=== PATIENT | male | born 1950 | race Caucasian/White ===

== ENCOUNTER → 2017-08-20 | Outpatient (CLI) | payer OTHER ==
[2017-08-20 13:19] LABS: HCT 52.7 % (39.0-53.0); HGB 17.4 gm/dL (13.0-17.5); MCHC 33.1 g/dL (31.0-37.0); MCV 99.8 fL (80.0-100.0); Macrocytosis Slight; Mean Platelet Volume 7.9; Platelet Count 105 k/uL (150-450); RBC 5.28 m/uL (4.30-5.90); RDW 14.7 % (11.5-15.5); WBC 5.5 k/uL (3.8-10.6)
[2017-08-20 13:38] LABS: Potassium 4.8 mmol/L (3.5-5.1)
== END | disposition home or self-care (01) ==
LOC: LABWHC1 12:33
PROVIDERS: ATTEND Internal Medicine Clinical Cardiac Electrophysiology
DX: I48.2 Chronic atrial fibrillation (principal); I42.9 Cardiomyopathy, unspecified; I25.10 Atherosclerotic heart disease of native coronary artery without angina pectoris
CPT/HCPCS: 36415; 80048; 85027

== ENCOUNTER 2017-09-05 14:03 | Day surgery (SDC) | payer OTHER ==
[2017-09-02 15:39] VITALS: BMI 33.6
[~2017-09-05 14:03] MED LIST: LACTATED RINGERS 1,000 ML IV SCH; LIDOCAINE 1% 20 ML VIAL (10MG/ML) FOR IV START INTRADERMA PRN; MIDAZOLAM 2 MG/2 ML VIAL IV PRN; SODIUM CHLORIDE 0.9% 1,000 ML IV SCH
[2017-09-05] MEDS ORDERED: ceFAZolin IN SWFI 2 GM/20 ML SYRINGE IVP ONE (15:00)
[2017-09-05] MEDS ORDERED: ceFAZolin 1,000 MG in SODIUM CHLORIDE 0.9% IRRIGATIO 250 ML IRRIGATION ONE (15:00)
[2017-09-05 15:03] LABS: INR 3.2 (<1.2); Prothrombin Time 28.7 sec (9.0-12.0)
[2017-09-05] MEDS ORDERED: MIDAZOLAM 2 MG/2 ML VIAL ONE (15:32)
[2017-09-05] MEDS ORDERED: fentaNYL (PF) 50 MCG/ML 2 ML AMP ONE (15:32)
[2017-09-05] MEDS ORDERED: KETAMINE 10 MG/ML 20 ML VIAL ONE (15:32)
[2017-09-05] MEDS ORDERED: LIDOCAINE 1% INJ 10MG/ML (20 ML MDV) ONE (15:59)
[2017-09-05] MEDS ORDERED: LIDOCAINE 1% INJ 10MG/ML (10 ML MDV) SQ ONE (16:11)
[2017-09-05] MEDS ORDERED: ACETAMINOPHEN TAB 325 MG TAB PO PRN (17:00)
--- NOTE | 2017-09-05 17:35 | PCN ---
PROCEDURE NOTE Peter Apodaca is a patient of Dr. Curiel who has CAD, permanent atrial fibrillation, congestive heart failure, chronic systolic LV dysfunction on medical treatment being followed by Dr. Curiel, who apparently has had who has had 2 ventricular tachyarrhythmia episodes with appropriate shocks in the past. His Bi-V ICD was placed at an outside institution. His Bi-V ICD is at an end of service and he was brought in for generator change. PROCEDURE: The patient is brought to the EP lab in a fasting state. Written informed consent was obtained prior to the procedure. The left shoulder area was prepped and draped as per protocol. 1% lidocaine was used for local anesthesia. The left pectoral area was prepped and draped as per protocol 1% lidocaine was used for local anesthesia. An incision was made over the generator and carried down to the level of the generator. The generator was in a subcutaneous location. A new subfascial pocket was made. Hemostasis was assured. The old generator was removed. This was a Medtronic CRTD model number [id number] Concerta DF1, serial number [id number]. The new generator implanted was a Medtronic model number [id number] serial number [id number]. The leads were interrogated. The LV lead was model a Medtronic model #4194, serial number [id number]. The pacing impedance 599 ohms, pacing threshold 1.75 V at 1 millisecond. The chronic RV lead was 6947-lead, 65 cm in length and serial number [id number]. The R-waves were 6.6 mV, pacing impedance 456 ohms. High-voltage impedance HVB 48 ohms. HVX impedance 56 ohms and pacing threshold 1.24 V at 0.4 milliseconds. The generator leads were placed in a subfascial pocket. The wound was closed in 3 layers and dressed per protocol. RESULT: Successful biventricular ICD generator change for device at [facility] in this gentleman with congestive heart failure, chronic systolic LV dysfunction, permanent atrial fibrillation, cardiomyopathy, underlying coronary artery disease on medical treatment. The device is at end of service. The new generator was placed. MMODL / IJN: [id number] /
[2017-09-05] MEDS ORDERED: ACETAMINOPHEN IV (For NPO) 1,000 MG in EMPTY BAG 1 BAG IVPB ONE (18:00)
[2017-09-05] MEDS ORDERED: LISINOPRIL 2.5 MG TAB PO SCH (18:00)
[2017-09-05] MEDS: SERTRALINE 100 MG TAB PO SCH (20:41)
[2017-09-05] MEDS: ALLOPURINOL 100 MG TAB PO SCH (20:41)
[2017-09-05] MEDS: FUROSEMIDE 40 MG TAB PO SCH (20:42)
[2017-09-05] MEDS: HYDROcodone/APAP 5-325MG 1 EACH TAB PO PRN (20:43)
[2017-09-05] MEDS ORDERED: risperiDONE 1 MG TAB PO SCH (21:00)
[2017-09-05] MEDS ORDERED: ATORVASTATIN 40 MG TAB PO SCH (21:00)
[2017-09-05] MEDS: GABAPENTIN 300 MG CAP PO SCH (21:44)
[2017-09-05] MEDS: ceFAZolin IN SWFI 2 GM/20 ML SYRINGE IVP SCH (21:44)
[2017-09-06] MEDS: SALSALATE 750 MG PO SCH ×3 (02:18→16:13)
[2017-09-06] MEDS: ceFAZolin IN SWFI 2 GM/20 ML SYRINGE IVP SCH ×3 (03:39→15:36)
[2017-09-06 08:08] VITALS: RESP 18
[2017-09-06] MEDS ORDERED: ASPIRIN 81 MG PO SCH (09:00)
[2017-09-06] MEDS ORDERED: SPIRONOLACTONE 25 MG TAB PO SCH (09:00)
[2017-09-06] MEDS ORDERED: METOPROLOL SUCCINATE (ER) 50 MG TAB.ER.24H PO SCH (09:00)
[2017-09-06] MEDS: GABAPENTIN 300 MG CAP PO SCH (09:42)
[2017-09-06] MEDS: ALLOPURINOL 100 MG TAB PO SCH (09:42)
[2017-09-06] MEDS: SERTRALINE 100 MG TAB PO SCH (09:43)
[2017-09-06] MEDS: FUROSEMIDE 40 MG TAB PO SCH (09:43)
--- NOTE | 2017-09-06 10:15 | DS ---
DISCHARGE SUMMARY Mr. Peter Apodaca is a 67-year-old male patient whose biventricular ICD generator was at end of life and he underwent ICD generator change yesterday successfully. He is receiving IV antibiotics. The site has healed well. There is a little bit of soakage in the dressing, but there is no hematoma. His INR is 3.2. He is resting comfortably in bed. Denies any chest discomfort or any breathing trouble. His vitals are stable. He is 98.1 degrees Fahrenheit temperature, blood pressure 114/73 mmHg, pulse rate in the 70s. He has underlying atrial fibrillation. IMPRESSION: 1. Known chronic left ventricular systolic dysfunction with at least class 2 congestive heart failure. 2. Underlying permanent atrial fibrillation. 3. Severe cardiomyopathy. 4. History of ventricular tachyarrhythmias on at least 2 occasions requiring appropriate ICD therapies. 5. Status post biventricular ICD generator change yesterday. PLAN: Discharge home after completion of IV antibiotics. Follow up in the device clinic in 5 days and follow up with Dr. Curiel as before. No changes in his medications. MMODL / IJN: [id number] /
[2017-09-06 12:21] VITALS: BP 119/80; PULSE 70; TEMP 98.1
[2017-09-06] MEDS: HYDROcodone/APAP 5-325MG 1 EACH TAB PO PRN (15:36)
[2017-09-06] MEDS ORDERED: WARFARIN 2.5 MG TAB PO SCH (18:00)
[2017-09-07] MEDS ORDERED: WARFARIN 5 MG TAB PO SCH (18:00)
== END 2017-09-06 16:13 | disposition home or self-care (01) ==
LOC: CATHEP 14:03 → 3OBS 17:00 → CATHEP 09-06 16:13
PROVIDERS: ATTEND Internal Medicine Clinical Cardiac Electrophysiology
DX: I42.9 Cardiomyopathy, unspecified (principal); Z45.02 Encounter for adjustment and management of automatic implantable cardiac defibrillator; I25.10 Atherosclerotic heart disease of native coronary artery without angina pectoris; I11.0 Hypertensive heart disease with heart failure; I50.22 Chronic systolic (congestive) heart failure; I48.2 Chronic atrial fibrillation; F17.210 Nicotine dependence, cigarettes, uncomplicated; Z79.01 Long term (current) use of anticoagulants; Z79.82 Long term (current) use of aspirin; Z79.899 Other long term (current) drug therapy; Z88.2 Allergy status to sulfonamides; Z88.8 Allergy status to other drugs, medicaments and biological substances
CPT/HCPCS: 33264; 85610; C1882; J2250; J0690 ×3; J3010; J2001

== ENCOUNTER 2018-11-17 10:17 | Day surgery (SDC) | payer OTHER ==
[2018-11-14 11:47] VITALS: BMI 30.3
[~2018-11-17 10:17] MED LIST changes: -MIDAZOLAM 2 MG/2 ML VIAL IV PRN; -SODIUM CHLORIDE 0.9% 1,000 ML IV SCH
[2018-11-17 10:55] VITALS: TEMP 97.4
--- NOTE | 2018-11-17 11:28 | P.PCN ---
Date of Procedure: 11/17/18 Description of Procedure: BRIEF HISTORY: 68-year-old male who presents for evaluation of intermittent dysphagia. He reports two-year history of intermittent dysphagia to both solids and liquids. Denies any progression of symptoms. Reports similar symptoms 20 years ago but unsure what treatment was at that time. He is on omeprazole therapy once daily. PROCEDURE PERFORMED: Esophagogastroduodenoscopy with biopsy. PREOPERATIVE DIAGNOSIS: Esophageal dysphagia. ESTIMATED BLOOD LOSS: Minimal. IV sedation per anesthesia. PROCEDURE: After informed consent was obtained, the patient was brought into the endoscopy unit. IV sedation was administered by Anesthesia under continuous monitoring. Initially the Olympus GIF-190 video endoscope was inserted into the mouth. Esophagus intubated without any difficulty. It was gradually advanced into the stomach and duodenum and carefully examined. The bulb and the second part of the duodenum appeared normal, with biopsies taken. The scope at this time was withdrawn to the stomach, adequately insufflated with air, and upon careful examination, mucosa of the antrum, body, cardia and the fundus appeared grossly normal, with findings of loose in the antrum and body with some nodularity suggestive of moderate gastritis with biopsies of the antrum and body to. The scope was then withdrawn into the esophagus. The GE junction was located at 45 cm from the incisors with findings suggestive of Mensah's esophagus. The esophagus appeared normal with mild inflammation in the lower esophagus suggestive of LA grade a esophagitis. Mid esophageal biopsies taken to rule out EOE. The patient tolerated the procedure well. IMPRESSION: 1. Moderate gastritis antrum and body, biopsied. 2. 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 3. Mid esophageal biopsies taken to rule out EOE. 4. Duodenal biopsies. RECOMMENDATIONS: The findings of this examination were discussed with the patient and his . Await pathology from biopsies. Would recommend trial of twice daily omeprazole therapy. If patient continues to have symptoms would recommend esophageal manometry for further workup.
[2018-11-17 11:47] VITALS: BP 110/70; PULSE 70; RESP 18
== END 2018-11-17 12:30 | disposition home or self-care (01) ==
LOC: ORWHC2ENDO 10:17
PROVIDERS: ATTEND Internal Medicine
DX: K29.50 Unspecified chronic gastritis without bleeding (principal); I25.10 Atherosclerotic heart disease of native coronary artery without angina pectoris; I11.0 Hypertensive heart disease with heart failure; I50.9 Heart failure, unspecified; E78.5 Hyperlipidemia, unspecified; F17.200 Nicotine dependence, unspecified, uncomplicated; G47.33 Obstructive sleep apnea (adult) (pediatric); Z95.810 Presence of automatic (implantable) cardiac defibrillator; I48.91 Unspecified atrial fibrillation; F32.9 Major depressive disorder, single episode, unspecified; I69.351 Hemiplegia and hemiparesis following cerebral infarction affecting right dominant side; Z79.82 Long term (current) use of aspirin; Z79.899 Other long term (current) drug therapy
CPT/HCPCS: 43239; 88305; 88341; 88342

== ENCOUNTER 2019-04-01 11:04 | Inpatient (IN) | payer MEDICARE, OTHER ==
[2019-04-01 16:13] LABS: INR 1.7 (<1.2); Prothrombin Time 17.2 sec (9.0-12.0)
[2019-04-01] MEDS: IPRATROPIUM-ALBUTEROL 3 ML NEB INHALATION SCH ×2 (17:21→19:21)
[2019-04-01] MEDS: PIPERACILLIN-TAZOBACTAM 3.375 GM in SODIUM CHLORIDE 0.9% 100 ML IVPB SCH ×2 (17:22→23:48)
[2019-04-01] MEDS: GABAPENTIN 100 MG CAP PO SCH ×2 (17:22→21:55)
[2019-04-01] MEDS: WARFARIN 2.5 MG TAB PO SCH (17:23)
[2019-04-01] MEDS: BUDESONIDE 0.5 MG/2 ML NEBU INHALATION SCH (19:21)
[2019-04-02 06:31] LABS: Basophils % (A) 1 %; Eosinophils # (A) 0.1 k/uL (0-0.7); Eosinophils % (A) 2 %; HCT 33.7 % (39.0-53.0); HGB 11.2 gm/dL (13.0-17.5); Hypochromasia Slight; Lymphocytes # (A) 0.7 k/uL (1.0-4.8); Lymphocytes % (A) 14 %; MCH 33.1 pg (25.0-35.0); MCHC 33.3 g/dL (31.0-37.0); MCV 99.5 fL (80.0-100.0); Mean Platelet Volume 9.4; Monocytes # (A) 0.3 k/uL (0-1.0); Monocytes % (A) 6 %; Neutrophils # (A) 3.9 k/uL (1.3-7.7); Neutrophils % (A) 76 %; Platelet Count 124 k/uL (150-450); RBC 3.39 m/uL (4.30-5.90); RDW 14.6 % (11.5-15.5); WBC 5.1 k/uL (3.8-10.6)
[2019-04-02 06:41] LABS: Albumin 2.6 g/dL (3.5-5.0); Calcium 8.6 mg/dL (8.4-10.2); Total Bilirubin 0.7 mg/dL (0.2-1.3); Total Protein 5.3 g/dL (6.3-8.2)
[2019-04-02] MEDS: IPRATROPIUM-ALBUTEROL 3 ML NEB INHALATION SCH ×4 (07:32→19:14)
[2019-04-02] MEDS: BUDESONIDE 0.5 MG/2 ML NEBU INHALATION SCH ×2 (07:32→19:14)
[2019-04-02] MEDS: ALLOPURINOL 100 MG TAB PO SCH (08:04)
[2019-04-02] MEDS: ASPIRIN 81 MG PO SCH (08:04)
[2019-04-02] MEDS: PIPERACILLIN-TAZOBACTAM 3.375 GM in SODIUM CHLORIDE 0.9% 100 ML IVPB SCH ×3 (08:04→23:29)
[2019-04-02] MEDS: SERTRALINE 100 MG TAB PO SCH (08:05)
[2019-04-02] MEDS: METOPROLOL TARTRATE 50 MG TAB PO SCH (08:05)
[2019-04-02] MEDS: GABAPENTIN 100 MG CAP PO SCH ×3 (08:05→21:12)
[2019-04-02] MEDS: CLOPIDOGREL 75 MG TAB PO SCH (08:05)
[2019-04-02] MEDS: POTASSIUM CHLORIDE ER 20 MEQ TAB.ER PO SCH (08:05)
--- NOTE | 2019-04-02 10:21 | P.NPCON ---
History of Present Illness - Reason for Consult acute renal failure - History of Present Illness Reason for consultation: Acute kidney injury History of present illness: Patient is a 68-year-old male seen in renal consultation for acute kidney injury. Patient's creatinine in July 2017 was 1.39 and this admission was 1.15. Patient presented to the hospital due to altered mental status. It appears that the patient was confused and was sent to the hospital. Patient has history of dysphagia and has been worked up by GI in the past. Patient has a PEG tube. There concerned that he aspirated. Patient is awake and alert. He denies chest pain or shortness of breath. Hemodynamically he stable. Patient is afebrile. He has been voiding. Denies any hematuria or dysuria. I don't see any nonsteroidals and his home medications. No history of diabetes. Currently not on any IV fluids or diuretics. Vital signs are stable. General: The patient appeared well nourished and normally developed. HEENT: Head exam is unremarkable. Neck is without jugular venous distension. LUNGS: Lungs are clear to auscultation and percussion. Breath sounds decreased. HEART: Rate and Rhythm are regular. First and second heart sounds normal. No murmurs, rubs or gallops. ABDOMEN: Abdominal exam reveals normal bowel sounds. Non-tender and non- distended. No evidence of peritonitis. EXTREMITITES: No clubbing, cyanosis, or edema. Past Medical History Past Medical History: Atrial Fibrillation, Heart Failure, COPD, CVA/TIA, Eye Disorder, Hearing Disorder / Deafness, Hyperlipidemia, Hypertension, Skin Disorder, Sleep Apnea/CPAP/BIPAP Additional Past Medical History / Comment(s): spouse states "he feels like food is getting stuck in his chest",CVA approx 2009-speech affected and slight rt sided weakness.cataracts.bruises easily,no cpap,neuropathy moe feet History of Any Multi-Drug Resistant Organisms: None Reported Past Surgical History: AICD, Heart Catheterization With Stent Additional Past Surgical History / Comment(s): AICD/Pacemaker, PEG tube placed Past Anesthesia/Blood Transfusion Reactions: No Reported Reaction Date of Last Stent Placement:: unk Type of Cardiac Device: AICD Device Placement Date:: 2009 Past Psychological History: Anxiety, Depression, PTSD Additional Psychological History / Comment(s): PTSD 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 war Smoking Status: Current every day smoker Past Alcohol Use History: Daily, Heavy Additional Past Alcohol Use History / Comment(s): smokes 3/4ppd since age 11,drubjs 6 pack beer daily Past Drug Use History: None Reported - Past Family History Brother(s) Family Medical History: Deep Vein Thrombosis (DVT) Medications and Allergies Home Medications Medication Instructions Recorded Confirmed Type Allopurinol [Zyloprim] 100 mg PEG/G-TUBE BID 09/02/17 04/01/19 History Aspirin [Adult Low Dose Aspirin EC] 81 mg PEG/G-TUBE DAILY 09/02/17 04/01/19 History Gabapentin [Neurontin] 300 mg PEG/G-TUBE TID 09/02/17 04/01/19 History Omeprazole [PriLOSEC] 20 mg PEG/G-TUBE DAILY 09/02/17 04/01/19 History Sertraline HCl [Zoloft] 100 mg PEG/G-TUBE BID 09/02/17 04/01/19 History Acetaminophen-Codeine 300-30mg 1 tab PEG/G-TUBE TID PRN 04/01/19 04/01/19 History [Tylenol w/codeine #3] Clopidogrel Bisulfate [Plavix] 75 mg PEG/G-TUBE DAILY 04/01/19 04/01/19 History Metoprolol Succinate [Toprol XL] 100 mg PEG/G-TUBE DAILY 04/01/19 04/01/19 History Potassium Chloride [Klor-Con 20] 20 meq PEG/G-TUBE DAILY 04/01/19 04/01/19 History Rosuvastatin [Crestor] 20 mg PEG/G-TUBE HS 04/01/19 04/01/19 History Warfarin Sodium 6 mg PEG/G-TUBE HS 04/01/19 04/01/19 History Allergies Allergy/AdvReac Type Severity Reaction Status Date / Time fluvastatin AdvReac Nausea & Verified 04/01/19 15:30 Vomiting metolazone [From Zaroxolyn] AdvReac Nausea & Verified 04/01/19 15:30 Vomiting simvastatin AdvReac Nausea & Verified 04/01/19 15:30 Vomiting sulfamethoxazole AdvReac Nausea & Verified 04/01/19 15:30 [From Bactrim] Vomiting trimethoprim [From Bactrim] AdvReac Nausea & Verified 04/01/19 15:30 Vomiting Physical Exam Vitals: Vital Signs Temp Pulse Pulse Resp BP Pulse Ox 04/02/19 08:11 98.2 F 79 18 137/78 93 L 04/02/19 07:46 76 04/02/19 07:32 72 04/02/19 04:37 97.9 F 73 16 133/87 98 04/02/19 01:13 98.2 F 75 16 126/87 94 L 04/01/19 20:15 97.9 F 77 18 131/98 96 04/01/19 19:23 85 04/01/19 17:32 84 04/01/19 17:22 84 04/01/19 14:48 98.3 F 84 16 128/81 98 04/01/19 14:45 98.3 F 84 16 128/81 98 Intake and Output 04/01/19 04/02/19 04/02/19 22:59 06:59 14:59 Intake Total 118 Balance 118 Intake: Oral 118 Other: Voiding Method Urinal Urinal Toilet Urinal # Voids 1 1 1 Weight 99.6 kg Results - Lab Results Most recent lab results Calcium 8.6 mg/dL (8.4-10.2) 04/02/19 06:02 04/02/19 06:02 04/02/19 06:02 Assessment and Plan Plan: Assessment: 1. Mild acute kidney injury mostly prerenal. Creatinine 1.15 today. Creatinine in July 2017 was 1.39. No other records available. Patient has not been seen outpatient. 2. Dysphagia. Patient has a PEG tube. 3. Benign hypertension. Controlled. 4. Possible aspiration pneumonitis. Maintained on IV Zosyn. Plan: Start normal saline at 50 mL an hour. Check urinalysis. Check renal ultrasound. Continue to monitor renal function and urine output. Thank you for the consultation. I will continue to follow this patient with you during his hospital stay.
--- NOTE | 2019-04-02 10:42 | HP ---
HISTORY AND PHYSICAL Peter Apodaca is a transfer from another hospital, admitted for altered mental status. He is alert and oriented x0, giving confusing answers. He had questionable unconsciousness at home. Family questionably whether they did CPR or not and them brought him to the hospital with the EMS. He was found to have altered mental status. He was transferred here for neurology consult. He was treated over there for aspiration pneumonia with Pulmonology and Cardiology saw him for atrial fibrillation. No seizure activity was seen, but the patient due to altered mental status, his neurology evaluation was unclear if it with encephalopathy due to aspiration pneumonia or if it was another stroke. CAT scan of the brain did not show a stroke, but he will need an MRI and a Neurology consult here. EEG has been ordered to rule out encephalopathy versus a stroke. Await Neurology recommendations. Continue with treatment for aspiration pneumonia and atrial fibrillation per Cardiology and pulmonology. MEDICATIONS: 1. DuoNeb q.i.d. 2. Zyloprim 100 daily. 3. Aspirin 81 mg daily. 4. Pulmicort 0.5 b.i.d. 5. Plavix 75 daily. 6. Neurontin 100 t.i.d.. 7. Lopressor 100 daily. 8. Zosyn IV. 9. He is on potassium chloride 20 mEq daily. 10.Zoloft 100 mg daily. 11.Coumadin 2.5 mg daily. .. 14 POINT REVIEW OF SYSTEMS: Negative except for mentioned in HPI. PHYSICAL EXAMINATION: Vital signs show temp 98.2, pulse 70s to 76, respiratory 18 to 22, blood pressure 137/78, 93% on oxygen on 2 L. CARDIOVASCULAR: S1-S2. LUNGS: Show rales at the bases. Scattered rhonchi. NEUROLOGIC: He is alert and oriented x0. HEMATOLOGY: Negative Homans. GI: Soft, nontender. Pupils equal, round, reactive to light and accommodation. ASSESSMENT: 1. Aspiration pneumonia, atrial fibrillation, acute encephalopathy versus worsening over stroke. 2. He needs MRI of the brain. Neurology consult. Possible questionable loss of consciousness requiring CPR home. 3. History of gout. 4. History of chronic obstructive pulmonary disease. Please see further orders in the chart and the chart review from the other hospital. Pulmonary and Cardiology consult as well as Neuro. MMODL / IJN: [id number] /
--- NOTE | 2019-04-02 11:15 | P.PN ---
Subjective Progress Note Date: 04/02/19 This is a 68-year-old gentleman who follows with Dr. Flores in the office. He he has an extensive past medical history consistent for severe underlying coronary artery disease status post coronary stenting which was performed at [facility], severe ischemic cardiomyopathy status post ICD, chronic persistent atrial fibrillation on oral anticoagulation with Coumadin, hypertension, hyperlipidemia, significant history of smoking and drinking alcohol. Patient also has history of peripheral vascular disease, in August 2017 patient underwent successful biventricular ICD generator change. It is unclear exactly of why the patient is here at [facility], upon review of the records at [facility], it does appear that the patient has been seen in consultation there by Dr. Flores. His final impression, patient presented there with mental status changes, he has long-standing persistent atrial fibrillation, no acute cardiac event at this time. Patient was seen and examined this morning here at [facility], he continues to be confused as morning. I pressure 137/78 with a heart rate in the 70s, 93% on 2 L of oxygen. White blood cell count is normal, hemoglobin 11.2, platelet count 124. Sodium 139, potassium 4.0, BUN 10, creatinine 1.1, BNP level 7210, TSH 1.1, INR this morning 1.7. Objective - Vital Signs Vital signs: Vital Signs Temp 98.2 F 04/02/19 08:11 Pulse 76 04/02/19 11:03 Resp 18 04/02/19 08:11 BP 137/78 04/02/19 08:11 Pulse Ox 93 L 04/02/19 08:11 Intake & Output 04/01/19 04/02/19 04/02/19 18:59 06:59 18:59 Intake Total 118 Balance 118 Weight 101 kg 99.6 kg Intake: Oral 118 Other: Voiding Method Urinal Toilet Urinal # Voids 1 1 1 - Exam PHYSICAL EXAMINATION: GENERAL: 68-year-old gentleman in no acute distress at the time of my examination HEENT: Head is atraumatic, normocephalic. Pupils equal, round. Sclera anicteric. Conjunctiva are clear. Mucous membranes of the mouth are moist. Neck is supple. There is no elevated jugular venous pressure. No carotid bruit is heard. HEART EXAMINATION: Heart S1 and S2 irregularly irregular CHEST EXAMINATION: Lungs are clear to auscultation and precussion. No chest wall tenderness is noted on palpation or with deep breathing. ABDOMEN: Soft, nontender. Bowel sounds are heard. No organomegaly noted. EXTREMITIES: 2+ peripheral pulses with no evidence of peripheral edema and no calf tenderness noted. NEUROLOGIC patient is awake, alert and oriented 1 . . - Labs CBC & Chem 7: 04/02/19 06:02 04/02/19 06:02 Labs: Abnormal Lab Results - Last 24 Hours (Table) 04/01/19 04/02/19 04/02/19 Range/Units 15:57 06:02 06:02 RBC 3.39 L (4.30-5.90) m/uL Hgb 11.2 L (13.0-17.5) gm/dL Hct 33.7 L (39.0-53.0) % Plt Count 124 L (150-450) k/uL Lymphocytes # 0.7 L (1.0-4.8) k/uL PT 17.2 H (9.0-12.0) sec INR 1.7 H (<1.2) Chloride 108 H (98-107) mmol/L Total Protein 5.3 L (6.3-8.2) g/dL Albumin 2.6 L (3.5-5.0) g/dL Assessment and Plan Plan: Assessment and plan #1 mental status change #2 ischemic cardio myopathy with prior by V AICD #3 coronary artery disease with prior stent placement #4 hypertension #5 hyperlipidemia #6 PVD #7 esophageal varices, patient has a PEG tube in place, he underwent percutaneous endoscopic gastrostomy #8 posttraumatic stress syndrome #9 history of CVA #10 COPD Plan We'll give the patient 5 mg of Coumadin today, maintain an INR in the range of 2-2.5. Continue beta lisa, add CHASITY inhibitor and Aldactone. DNP note has been reviewed, I agree with a documented findings and plan of care. Patient was seen and examined.
--- NOTE | 2019-04-02 11:40 | US ---
EXAMINATION TYPE: US kidneys/renal and bladder DATE OF EXAM: 04/02/2019 COMPARISON: CT 11/29/2015 CLINICAL HISTORY: 68 year-old male acute kidney injury. TECHNIQUE: Multiple sonographic images of the kidneys and bladder are obtained. FINDINGS: EXAM MEASUREMENTS: Right Kidney: 11.7 x 5.3 x 5.5 cm Left Kidney: 13.2 x 5.8 x 5.7 cm with a mid pole cyst measuring 2.9 cm. No hydronephrosis on either side. Bladder: Partial distention of the bladder shows no gross abnormal body. Bilateral Jets seen: No Incidental noted is made of multiple stones layering gallstones. There may be trace pericholecystic fluid and mild gallbladder hydrops at 4.2 cm wide. IMPRESSION: 1. No hydronephrosis. 2. Incidental left midpole renal cyst measuring 2.9 cm. 3. Also, incidental cholelithiasis with possible trace pericholecystic fluid. The gallbladder is also mildly hydropic. Further clinical correlation recommended to exclude early acute cholecystitis. Foll ow-up ultrasound or HIDA scan as indicated.
[2019-04-02 12:19] LABS: Prothrombin Time 19.8 sec (9.0-12.0)
[2019-04-02] MEDS: SACUBITRIL/VALSARTAN 24 MG-26 MG TABLET PO SCH ×2 (13:15→22:23)
[2019-04-02] MEDS: SODIUM CHLORIDE 0.9% 1,000 ML IV SCH (13:15)
[2019-04-02 14:05] VITALS: BMI 28.1
--- NOTE | 2019-04-02 15:22 | XR ---
EXAMINATION TYPE: XR chest 2V DATE OF EXAM: 04/02/2019 COMPARISON: 12/25/2012 HISTORY: 68-year-old male aspiration pneumonia TECHNIQUE: PA and lateral views FINDINGS: Left anterior chest wall ICD generator with right atrial, right ventricular, and coronary sinus leads . Hyperinflation. Stable bilateral hilar prominence. There is focal posterior right basilar opacity. Heart upper limits of normal in size. IMPRESSION: 1. COPD with focal posterior basilar opacity could represent infectious or aspiration pneumonia. Foll ow-up after treatment to ensure clearance. 2. Bilateral hilar prominence is unchanged and may reflect underlying pulmonary arterial hypertension .
--- NOTE | 2019-04-02 15:23 | FL ---
EXAMINATION TYPE: FL barium swallow w video DATE OF EXAM: 04/02/2019 MODIFIED SWALLOW / DEGLUTITION STUDY CLINICAL HISTORY: Dysphagia. TECHNIQUE: Deglutition study is performed utilizing thin liquid barium, honey and nectar thick liqui d barium, barium thick pudding, and barium coated cracker. 2 minutes and 7 seconds of fluoroscopy fransisco e was utilized. No fluoroscopic images were saved as the examination was video recorded. COMPARISON: None. FINDINGS: The oral and pharyngeal phases show satisfactory initiation and propagation with all modali ties tested. Normal mastication is seen with solid modalities tested. Silent aspiration was seen on one occasion with the thin barium consistency. Transient laryngeal penetration was seen with the sheryl y and nectar thick consistencies, which was able to be ejected with cough reflex. Vallecular residual s were seen with the barium thick pudding and barium coated cracker. IMPRESSION: Silent aspiration with the thin barium consistency, transient laryngeal penetration wit h the honey and nectar thick consistencies and vallecular residuals with the barium thick pudding coa duran cracker consistencies. Please refer to speech therapist notes for further details if necessary.
--- NOTE | 2019-04-02 15:33 | P.PN ---
Subjective Progress Note Date: 04/02/19 Principal diagnosis: Altered mental status This is a 68-year-old gentleman transferred here yesterday from [facility] due to altered mental status and the need for neurologic evaluation. He was seen in consultation there yesterday. He is seen in follow- up today on the selective care unit. He is awake and alert. He is having expressive aphasia and seems confused to time and place. He denies any shortness of breath. He is maintaining O2 saturations in the 90s on room air. Chest x-ray shows evidence of chronic obstructive pulmonary disease with focal posterior basilar opacity representing infectious or aspiration pneumonia. He's afebrile. Hemodynamically stable. White count 5.1. Hemoglobin 11.2. INR 2.0. Creatinine 1.15. ProBNP 7210. TSH 1.100. He is currently on bronchodilators and Zosyn. Anticoagulated with warfarin. Objective - Vital Signs Vital signs: Vital Signs Temp 98.4 F 04/02/19 12:00 Pulse 70 04/02/19 15:16 Resp 16 04/02/19 15:16 BP 134/78 04/02/19 12:00 Pulse Ox 97 04/02/19 12:00 Intake & Output 04/01/19 04/02/19 04/02/19 18:59 06:59 18:59 Intake Total 118 820 Balance 118 820 Weight 101 kg 99.6 kg 99.6 kg Intake: Intake, IV Titration 820 Amount Piperacillin-Tazobactam 3 100 .375 gm In Sodium Chloride 0.9% 100 ml @ 25 mls/hr IVPB Q8HR MO Rx# :[id number] Sodium Chloride 0.9% 1, 720 000 ml @ 50 mls/hr IV . Q20H MO Rx#:[id number] Oral 118 Other: Voiding Method Urinal Toilet Urinal # Voids 1 1 1 - Exam GENERAL EXAM: Alert, active, confused to time and place and some expressive aphasia, on room air comfortable in no apparent distress. HEAD: Normocephalic. EYES: Normal reaction of pupils, equal size. NOSE: Clear with pink turbinates. THROAT: No erythema or exudates. NECK: No masses, no JVD. CHEST: No chest wall deformity. LUNGS: Equal air entry with crackles in the posterior bases. CVS: S1 and S2 normal with no audible murmur, regular rhythm. ABDOMEN: No hepatosplenomegaly, normal bowel sounds, no guarding or rigidity. SPINE: No scoliosis or deformity SKIN: No rashes CENTRAL NERVOUS SYSTEM: No focal deficits, tone is normal in all 4 extremities. EXTREMITIES: There is no peripheral edema. No clubbing, no cyanosis. Peripheral pulses are intact. - Labs CBC & Chem 7: 04/02/19 06:02 04/02/19 06:02 Labs: Abnormal Lab Results - Last 24 Hours (Table) 04/01/19 04/02/19 04/02/19 Range/Units 15:57 06:02 06:02 RBC 3.39 L (4.30-5.90) m/uL Hgb 11.2 L (13.0-17.5) gm/dL Hct 33.7 L (39.0-53.0) % Plt Count 124 L (150-450) k/uL Lymphocytes # 0.7 L (1.0-4.8) k/uL PT 17.2 H (9.0-12.0) sec INR 1.7 H (<1.2) Chloride 108 H (98-107) mmol/L Total Protein 5.3 L (6.3-8.2) g/dL Albumin 2.6 L (3.5-5.0) g/dL 04/02/19 Range/Units 11:41 RBC (4.30-5.90) m/uL Hgb (13.0-17.5) gm/dL Hct (39.0-53.0) % Plt Count (150-450) k/uL Lymphocytes # (1.0-4.8) k/uL PT 19.8 H (9.0-12.0) sec INR 2.0 H (<1.2) Chloride (98-107) mmol/L Total Protein (6.3-8.2) g/dL Albumin (3.5-5.0) g/dL Assessment and Plan Assessment: 1 Altered mental status of unclear etiology, the patient was found unresponsive at home and there was some question of brief CPR 2 Aspiration pneumonia, currently on Zosyn, on room air 3 Dysphagia with PEG tube placement 4 History of atrial fibrillation status post AICD placement anticoagulated with warfarin 5 Coronary artery disease with previous stent placement 6 Chronic tobacco dependence 7 History of daily alcohol use 8 history of CVA 9 Hyperlipidemia 10 Hypertension 11 Hearing disorder Plan: The patient was seen and evaluated by Dr. Cox. Chest x-ray and labs reviewed. Suspect some possible aspiration and unknown downtime. Continue Zosyn and bronchodilators. Neuro workup pending. If not possible here may need transfer for neurologic evaluation. In the interim, we'll continue to follow and make further recommendations based on his clinical status. I, the cosigning physician, performed a history & physical examination of the patient. Lungs sounds with crackles in the posterior bases. Maintaining good O2 saturations in the 90s on room air. I discussed the assessment and plan of care with my nurse practitioner, Eloisa Burnett. I attest to the above note as dictated by her.
[2019-04-02] MEDS: WARFARIN 2.5 MG TAB PO SCH (16:53)
[2019-04-02] MEDS ORDERED: WARFARIN 5 MG TAB PO ONE (18:00)
[2019-04-02 19:44] LABS: Hemoglobin A1C 5.1 % (4.0-6.0)
--- NOTE | 2019-04-03 05:55 | EEG ---
ELECTROENCEPHALOGRAM REPORT PROCEDURE DATE: 04/02/2019 ELECTROENCEPHALOGRAM (EEG) REPORT: TECHNIQUE: A routine 18 channel EEG was performed with video using the 10/20 international electrode placement system. HISTORY: Encephalopathy. CURRENT MEDICATIONS: Coumadin, Zoloft, piperacillin, metoprolol, Neurontin, Plavix. STUDY DURATION: 20 minutes. FINDINGS: Please note that portions of this recording were limited in interpretation by the presence of muscle artifact. Also an excess of beta frequency activity was noted. This is not epileptiform in nature and may in part be due to medication effect. BACKGROUND: The background activity consisted of unsustained 7 to 8 Hz rhythmic waveforms symmetrically distributed over both posterior quadrants. ACTIVATION: Hyperventilation: Not performed. Photic stimulation: Mild symmetric driving seen. Sleep: Stages I and II sleep noted. ABNORMALITIES: Intermittent diffuse 5 to 7 Hz polymorphic theta range slowing was seen. IMPRESSION: Abnormal EEG. The intermittent diffuse theta range slowing mentioned above is not epileptiform in nature. In combination with the slow background, these findings indicate mild diffuse cerebral dysfunction which may in part be due to medication effect. MMODL / IJN: [id number] / [email or web address]
[2019-04-03 06:44] LABS: Basophils % (A) 1 %; Eosinophils # (A) 0.1 k/uL (0-0.7); Eosinophils % (A) 2 %; HCT 35.8 % (39.0-53.0); HGB 11.8 gm/dL (13.0-17.5); Hypochromasia Slight; Lymphocytes # (A) 0.8 k/uL (1.0-4.8); Lymphocytes % (A) 18 %; MCH 32.8 pg (25.0-35.0); MCHC 32.9 g/dL (31.0-37.0); MCV 99.5 fL (80.0-100.0); Macrocytosis Slight; Mean Platelet Volume 9.3; Monocytes # (A) 0.3 k/uL (0-1.0); Monocytes % (A) 6 %; Neutrophils # (A) 3.1 k/uL (1.3-7.7); Neutrophils % (A) 71 %; Platelet Count 122 k/uL (150-450); RDW 14.7 % (11.5-15.5); WBC 4.4 k/uL (3.8-10.6)
[2019-04-03 06:48] LABS: INR 2.3 (<1.2); Prothrombin Time 22.6 sec (9.0-12.0)
[2019-04-03 07:02] LABS: Albumin 2.8 g/dL (3.5-5.0); Calcium 8.7 mg/dL (8.4-10.2); Magnesium 1.9 mg/dL (1.6-2.3); Potassium 3.9 mmol/L (3.5-5.1); Total Bilirubin 0.9 mg/dL (0.2-1.3); Total Protein 5.8 g/dL (6.3-8.2)
[2019-04-03] MEDS: BUDESONIDE 0.5 MG/2 ML NEBU INHALATION SCH ×2 (07:56→20:48)
[2019-04-03] MEDS: IPRATROPIUM-ALBUTEROL 3 ML NEB INHALATION SCH ×4 (07:56→20:47)
[2019-04-03] MEDS: SODIUM CHLORIDE 0.9% 1,000 ML IV SCH (08:36)
--- NOTE | 2019-04-03 08:41 | PN ---
PROGRESS NOTE A 68-year-old white male with altered mental status, encephalopathy versus stroke. Await Neurology consult. The EEG is pending. PHYSICAL EXAMINATION: Vital signs are stable, afebrile. CARDIOVASCULAR: S1, S2. LUNGS Transmitted upper airway sound. HEMATOLOGY: Negative Homans. PSYCH: Fair mood and affect. ASSESSMENT: Altered mental status, encephalopathy due to aspiration pneumonia versus stroke. Continue current treatments. Await EEG and Neurology consult. Cardiology to assess atrial fibrillation. IV antibiotics to treat aspiration pneumonia. MMODL / IJN: [id number] /
[2019-04-03] MEDS: SERTRALINE 100 MG TAB PO SCH (08:55)
[2019-04-03] MEDS: GABAPENTIN 100 MG CAP PO SCH ×3 (08:55→21:03)
[2019-04-03] MEDS: POTASSIUM CHLORIDE ER 20 MEQ TAB.ER PO SCH (08:55)
[2019-04-03] MEDS: ASPIRIN 81 MG PO SCH (08:56)
[2019-04-03] MEDS: CLOPIDOGREL 75 MG TAB PO SCH (08:56)
[2019-04-03] MEDS: SACUBITRIL/VALSARTAN 24 MG-26 MG TABLET PO SCH ×2 (08:56→21:03)
[2019-04-03] MEDS: ALLOPURINOL 100 MG TAB PO SCH (08:56)
[2019-04-03] MEDS: METOPROLOL TARTRATE 50 MG TAB PO SCH (08:56)
[2019-04-03] MEDS ORDERED: SPIRONOLACTONE 25 MG TAB PO SCH (09:00)
[2019-04-03] MEDS: PIPERACILLIN-TAZOBACTAM 3.375 GM in SODIUM CHLORIDE 0.9% 100 ML IVPB SCH ×2 (11:36→18:18)
--- NOTE | 2019-04-03 12:20 | P.PN ---
Subjective Patient is seen in follow-up for acute kidney injury. Renal function is stable. Patient denies any chest pain or shortness of breath. Oral intake is good. He has been voiding. Vital signs are stable. General: The patient appeared well nourished and normally developed. HEENT: Head exam is unremarkable. Neck is without jugular venous distension. LUNGS: Lungs are clear to auscultation and percussion. Breath sounds decreased. HEART: Rate and Rhythm are regular. First and second heart sounds normal. No murmurs, rubs or gallops. ABDOMEN: Abdominal exam reveals normal bowel sounds. Non-tender and non- distended. No evidence of peritonitis. EXTREMITITES: No clubbing, cyanosis, or edema. Objective - Vital Signs Vital signs: Vital Signs Temp 97.7 F 04/03/19 08:05 Pulse 76 04/03/19 11:21 Resp 18 04/03/19 11:14 BP 109/60 04/03/19 08:05 Pulse Ox 94 L 04/03/19 08:05 Intake & Output 04/02/19 04/03/19 04/03/19 18:59 06:59 18:59 Intake Total 820 900 Balance 820 900 Weight 99.6 kg 96.6 kg Intake: Intake, IV Titration 820 Amount Piperacillin-Tazobactam 3 100 .375 gm In Sodium Chloride 0.9% 100 ml @ 25 mls/hr IVPB Q8HR MO Rx# :[id number] Sodium Chloride 0.9% 1, 720 000 ml @ 50 mls/hr IV . Q20H MO Rx#:[id number] Oral 900 Other: Voiding Method Toilet Toilet Toilet Urinal Urinal Urinal # Voids 1 1 2 - Labs CBC & Chem 7: 04/03/19 06:26 04/03/19 06:26 Labs: Abnormal Lab Results - Last 24 Hours (Table) 04/02/19 04/03/19 04/03/19 Range/Units 11:41 06:26 06:26 RBC 3.60 L (4.30-5.90) m/uL Hgb 11.8 L (13.0-17.5) gm/dL Hct 35.8 L (39.0-53.0) % Plt Count 122 L (150-450) k/uL Lymphocytes # 0.8 L (1.0-4.8) k/uL PT 19.8 H (9.0-12.0) sec INR 2.0 H (<1.2) Chloride 109 H (98-107) mmol/L Glucose 102 H (74-99) mg/dL Total Protein 5.8 L (6.3-8.2) g/dL Albumin 2.8 L (3.5-5.0) g/dL 04/03/19 Range/Units 06:26 RBC (4.30-5.90) m/uL Hgb (13.0-17.5) gm/dL Hct (39.0-53.0) % Plt Count (150-450) k/uL Lymphocytes # (1.0-4.8) k/uL PT 22.6 H (9.0-12.0) sec INR 2.3 H (<1.2) Chloride (98-107) mmol/L Glucose (74-99) mg/dL Total Protein (6.3-8.2) g/dL Albumin (3.5-5.0) g/dL Assessment and Plan Plan: Assessment: 1. Mild acute kidney injury versus underlying chronic kidney disease. Renal function stable. Creatinine 1.22. Creatinine in July 2017 was 1.39. No other records available. Patient has not been seen outpatient. No hydronephrosis noted on kidney ultrasound. 2. Dysphagia. Patient has a PEG tube. He is currently on a dysphagia 1 diet. 3. Benign hypertension. Controlled. 4. Possible aspiration pneumonitis. Maintained on IV Zosyn. 5. History of coronary artery disease status post coronary stenting. 6. Severe ischemic cardiomyopathy status post AICD placement. Plan: Hep-Lock IV fluids. Follow-up urinalysis. Continue to monitor renal function and urine output.
[2019-04-03 12:47] VITALS: RESP 16
[2019-04-03] MEDS ORDERED: LORazepam 2 MG/ML INJ IV PRN (17:29)
[2019-04-03] MEDS: WARFARIN 2.5 MG TAB PO SCH (18:17)
[2019-04-03 21:03] VITALS: BP 128/74; TEMP 97.2
[2019-04-03 21:09] VITALS: PULSE 80
[2019-04-03] MEDS ORDERED: LORazepam 2 MG/ML INJ IV STA ×2 (22:02→22:11)
--- NOTE | 2019-04-12 16:58 | DS ---
DISCHARGE SUMMARY ADMIT DATE: 04/01/2019. DISCHARGE DATE: 04/03/2019. MEDICATIONS: Neurontin 300 mg t.i.d., Zoloft 100 b.i.d., Prilosec 20 mg daily, Zyloprim 100 mg b.i.d., Aspirin 81 mg daily, potassium chloride 20 mEq daily, warfarin 6 mg daily, Plavix 75 mg daily, Crestor 20 mg daily, Tylenol with codeine t.i.d., metoprolol succinate 100 mg daily. CONDITION: Stable. PROGNOSIS: Guarded. Ambulate as tolerated. DISCHARGE DIAGNOSES: 1. Altered mental status. 2. Encephalopathy versus stroke. 3. Atrial fibrillation. 4. Aspiration pneumonia. He is maintained oxygen 90% on room air. Chest x-ray shows COPD and aspiration pneumonia. He was treated with Zosyn while in the hospital, anticoagulated with warfarin. He had some expressive aphasia and some confusion. After he was found unresponsive at home, he was transferred down to [facility] for further treatment as there was no neurologist on staff here. He was treated for aspiration pneumonia, atrial fibrillation, coronary artery disease with stent. Pattern[employer] and oil rag washer saw him, but due to no neurologist, he was transferred down to [facility] for neurologic eval. MMODL / IJN: [id number] /
== END 2019-04-03 22:35 | disposition short-term general hospital (02) | DRG 178 ==
LOC: 3SCARD 11:04
PROVIDERS: ADMIT Family Medicine; ATTEND Family Medicine
DX: J69.0 Pneumonitis due to inhalation of food and vomit (principal); G93.40 Encephalopathy, unspecified; I48.11 Longstanding persistent atrial fibrillation; I85.00 Esophageal varices without bleeding; N17.9 Acute kidney failure, unspecified; R47.01 Aphasia; E78.5 Hyperlipidemia, unspecified; F17.200 Nicotine dependence, unspecified, uncomplicated; F43.10 Post-traumatic stress disorder, unspecified; H91.90 Unspecified hearing loss, unspecified ear; I11.0 Hypertensive heart disease with heart failure; I25.10 Atherosclerotic heart disease of native coronary artery without angina pectoris; I25.5 Ischemic cardiomyopathy; I50.9 Heart failure, unspecified; I73.9 Peripheral vascular disease, unspecified; J44.9 Chronic obstructive pulmonary disease, unspecified; R13.10 Dysphagia, unspecified; Z79.01 Long term (current) use of anticoagulants; Z79.02 Long term (current) use of antithrombotics/antiplatelets; Z79.82 Long term (current) use of aspirin; Z79.899 Other long term (current) drug therapy; Z86.73 Personal history of transient ischemic attack (TIA), and cerebral infarction without residual deficits; Z93.1 Gastrostomy status; Z95.5 Presence of coronary angioplasty implant and graft; Z95.810 Presence of automatic (implantable) cardiac defibrillator; Z84.89 Family history of other specified conditions; Z88.8 Allergy status to other drugs, medicaments and biological substances; Z88.2 Allergy status to sulfonamides
CPT/HCPCS: 71046; 74230; 76770; 80053; 82607; 83036; 83735; 83880; 84443; 85025; 85610; 94640; 94760; 95816

== ENCOUNTER 2019-05-06 12:42 | Day surgery (SDC) | payer MEDICARE ==
[2019-05-06] MEDS ORDERED: LIDOCAINE 1% 20 ML VIAL (10MG/ML) FOR IV START INTRADERMA PRN (13:09)
[2019-05-06] MEDS ORDERED: LACTATED RINGERS 1,000 ML IV SCH (13:09)
[2019-05-06 13:17] VITALS: TEMP 97.4
[2019-05-06] MEDS ORDERED: PROPOFOL 10 MG/ML 20 ML VIAL IV ONE (13:45)
[2019-05-06] MEDS ORDERED: LIDOCAINE 1% INJ 10MG/ML (20 ML MDV) ONE (13:45)
--- NOTE | 2019-05-06 14:21 | P.PCN ---
Date of Procedure: 05/06/19 Procedure(s) Performed: BRIEF HISTORY: Patient is a 68-year-old, pleasant, male scheduled for an upper endoscopy with a PEG tube removal today. Patient had a PEG tube placement about 3 months ago for dysphagia and for the last 2 weeks he has not been using the PEG tube for feeds. Dysphagia has resolved. He had an outpatient visit yesterday in the office and I tried to remove the PEG tube but was not successful. Hence he scheduled for an upper endoscopy for PEG tube removal today. PROCEDURE PERFORMED: Esophagogastroduodenoscopy with PEG tube removal. PREOPERATIVE DIAGNOSIS: History of oropharyngeal dysphagia with a PEG tube placement 3 months ago. IV sedation per anesthesia. PROCEDURE: After informed consent was obtained, the patient was brought into the endoscopy unit. IV sedation was administered by Anesthesia under continuous monitoring. Initially the Olympus GIF-140 video endoscope was inserted into the mouth. Esophagus intubated without any difficulty. It was gradually advanced into the stomach and duodenum and carefully examined. The bulb and the second part of the duodenum appeared normal. The scope at this time was withdrawn to the stomach, adequately insufflated with air, and upon careful examination, mucosa of the antrum, body, cardia and the fundus appeared normal. The internal bumper appeared to be in good position. Despite multiple intense and was not able to pull the PEG tube from the anterior abdominal wall despite applying traction and pulling out. Hence I decided to cut the PEG tube just below the external bumper and using a snare the PEG tube was held and gently withdrawn out of the stomach through the esophagus with some difficulty but patient tolerated well. Repeat upper endoscopy was performed in the esophagus appeared normal. The scope was then withdrawn into the esophagus. The GE junction was located at 39 cm from the incisors. The esophagus appeared normal. There were no erosions or ulcerations seen and the patient tolerated the procedure well. IMPRESSION: 1. Successful PEG tube removal as described above. 2. Small hiatal hernia.. RECOMMENDATIONS: The findings of this examination were discussed with the patient Family. He was advised to follow up in office as needed. He will resume Coumadin today..
[2019-05-06 14:33] VITALS: BP 122/77; PULSE 70; RESP 16
== END 2019-05-06 15:12 | disposition home or self-care (01) ==
LOC: ORWHC2ENDO 12:42
PROVIDERS: ATTEND Internal Medicine Gastroenterology
DX: Z43.1 Encounter for attention to gastrostomy (principal); K44.9 Diaphragmatic hernia without obstruction or gangrene; I11.0 Hypertensive heart disease with heart failure; I50.9 Heart failure, unspecified; I48.91 Unspecified atrial fibrillation; I69.320 Aphasia following cerebral infarction; I69.354 Hemiplegia and hemiparesis following cerebral infarction affecting left non-dominant side; I69.353 Hemiplegia and hemiparesis following cerebral infarction affecting right non-dominant side; E78.5 Hyperlipidemia, unspecified; J44.9 Chronic obstructive pulmonary disease, unspecified; G47.33 Obstructive sleep apnea (adult) (pediatric); H91.90 Unspecified hearing loss, unspecified ear; Z88.2 Allergy status to sulfonamides; Z88.1 Allergy status to other antibiotic agents; Z88.8 Allergy status to other drugs, medicaments and biological substances; Z79.82 Long term (current) use of aspirin; Z79.02 Long term (current) use of antithrombotics/antiplatelets; Z79.01 Long term (current) use of anticoagulants; Z79.899 Other long term (current) drug therapy; Z95.5 Presence of coronary angioplasty implant and graft; Z95.810 Presence of automatic (implantable) cardiac defibrillator
CPT/HCPCS: 43247; J2001; J2704; B4087

== ENCOUNTER 2019-08-20 13:10 | Inpatient (IN) | payer OTHER, MEDICARE ==
[2019-08-20] MEDS ORDERED: SODIUM CHLORIDE 0.9% 1,000 ML IV STA (14:09)
--- NOTE | 2019-08-20 14:11 | ED ---
General Adult HPI - General Source: patient, family Mode of arrival: ambulatory Limitations: altered mental status <Christian Woodard - Last Filed: 08/20/19 14:58> <Izaiah Nielsen - Last Filed: 08/20/19 16:24> - General Chief complaint: Altered Mental Status Stated complaint: confused,hard time breathing Time Seen by Provider: 08/20/19 13:19 - History of Present Illness Initial comments: Dictation was produced using [employer] dictation software. please excuse any grammatical, word or spelling errors. This patient was cared for during a federal and state declared state of emergency secondary to Covid 19 Chief Complaint: 69-year-old male with past medical history of dysphasia, H fibrillation, heart failure presents with generalized weakness and swallowing difficulties. History of Present Illness: Patient 69-year-old male who states that over the last 2 months he's been feeling unwell. Patient decided that he was tired of the symptoms that he was experiencing propped him to come to the emergency department today. He is accompanied by significant other who also reports that patient has had a swallowing difficulties of the last 48 hours. Patient has history of dysphasia. He underwent extensive testing for swallowing difficulties. He even had a PEG tube that was placed but then was later removed earlier this year. Patient has had approximately 8 pound weight loss over the last 4 months. Patient states he has neurologic issues that's with a PEG tube was placed beginning. Chart review shows that patient was admitted to our hospital for neurology consultation however because neurology wasn't available at the time of transfer to [facility]. When asked about what happened at [facility] he states that the discharge him after 2 days when he showed that he can swallow. Did report that he was value by neurology at that time. Patient states he feels crappy however does not have any localizing symptoms. No chest pain, shortness of breath. No belly pain no nausea vomiting. He reports that he feels weak suspicion to his lower extremities whenever he tries to perform e xertional activity. Patient does take Coumadin for atrial fibrillation. The ROS documented in this emergency department record has been reviewed and confirmed by me. Those systems with pertinent positive or negative responses have been documented in the HPI. All other systems are other negative and/or noncontributory. PHYSICAL EXAM: General Impression: Alert and oriented x3, not in acute distress, cachectic HEENT: Normocephalic atraumatic, extra-ocular movements intact, pupils equal and reactive to light bilaterally, dry mucous members Cardiovascular: Heart regular rate and rhythm Chest: Able to complete full sentences, no retractions, no tachypnea Abdomen: abdomen soft, non-tender, non-distended, no organomegaly Musculoskeletal: Pulses present and equal in all extremities, no peripheral edema Motor: no focal deficits noted Neurological: CN II-XII grossly intact, no focal motor or sensory deficits noted Skin: Intact with no visualized rashes Psych: Normal affect and mood ED course: 69-year-old male presents with generalized weakness. Extremities symptoms for roughly 2 months. He has multiple comorbidities. Physical exam is nonfocal. Vital signs upon arrival are within acceptable limits. Patient is signed out to Dr. Nielsen was coming in for his shift at 3 PM. (Christian Woodard) - Related Data Home Medications Medication Instructions Recorded Confirmed Allopurinol [Zyloprim] 100 mg PO BID 09/02/17 05/06/19 Aspirin [Adult Low Dose Aspirin EC] 81 mg PO DAILY 09/02/17 05/06/19 Gabapentin [Neurontin] 600 mg PO BID 09/02/17 05/06/19 Omeprazole [PriLOSEC] 20 mg PO BID 09/02/17 05/06/19 Sertraline HCl [Zoloft] 100 mg PO BID 09/02/17 05/06/19 Acetaminophen-Codeine 300-30mg 1 tab PO TID PRN 04/01/19 05/06/19 [Tylenol w/codeine #3] Metoprolol Succinate [Toprol XL] 100 mg PO DAILY 04/01/19 05/06/19 Rosuvastatin [Crestor] 20 mg PO HS 04/01/19 05/06/19 Warfarin Sodium 5 mg PO HS 04/01/19 05/06/19 Lisinopril [Zestril] 2.5 mg PO DAILY 05/06/19 05/06/19 Magnesium 420 mg PO BID 05/06/19 05/06/19 Spironolactone [Aldactone] 25 mg PO DAILY 05/06/19 05/06/19 Thiamine [Vitamin B-1] 100 mg PO BID 05/06/19 05/06/19 Warfarin Sodium [Coumadin] 2.5 mg PO HS 05/06/19 05/06/19 Allergies Allergy/AdvReac Type Severity Reaction Status Date / Time fluvastatin AdvReac Nausea & Verified 08/20/19 13:17 Vomiting metolazone [From Zaroxolyn] AdvReac Nausea & Verified 08/20/19 13:17 Vomiting simvastatin AdvReac Nausea & Verified 08/20/19 13:17 Vomiting sulfamethoxazole AdvReac Nausea & Verified 08/20/19 13:17 [From Bactrim] Vomiting trimethoprim [From Bactrim] AdvReac Nausea & Verified 08/20/19 13:17 Vomiting Review of Systems ROS Other: All systems not noted in ROS Statement are negative. <Christian Woodard - Last Filed: 08/20/19 14:58> ROS Other: All systems not noted in ROS Statement are negative. <Izaiah Nielsen - Last Filed: 08/20/19 16:24> ROS Statement: Those systems with pertinent positive or pertinent negative responses have been documented in the HPI. Past Medical History Past Medical History: Atrial Fibrillation, Heart Failure, COPD, CVA/TIA, Eye Disorder, Hearing Disorder / Deafness, Hyperlipidemia, Hypertension, Skin Disorder, Sleep Apnea/CPAP/BIPAP Additional Past Medical History / Comment(s): spouse states "he feels like food is getting stuck in his chest",CVA approx 2009-speech affected and slight rt sided weakness.cataracts.bruises easily,no cpap,neuropathy moe feet History of Any Multi-Drug Resistant Organisms: None Reported Past Surgical History: AICD, Heart Catheterization With Stent Additional Past Surgical History / Comment(s): AICD/Pacemaker, PEG tube placed Past Anesthesia/Blood Transfusion Reactions: No Reported Reaction Date of Last Stent Placement:: unk Type of Cardiac Device: AICD Device Placement Date:: 2009 Past Psychological History: Anxiety, Depression, PTSD Smoking Status: Current every day smoker Past Alcohol Use History: Daily, Heavy Past Drug Use History: None Reported - Past Family History Brother(s) Family Medical History: Deep Vein Thrombosis (DVT) <Christian Woodard - Last Filed: 08/20/19 14:58> General Exam Limitations: altered mental status <Christian Woodard - Last Filed: 08/20/19 14:58> Course Vital Signs 08/20/19 13:15 Temperature 98.4 F Pulse Rate 69 Respiratory 18 Rate Blood Pressure 133/76 O2 Sat by Pulse 97 Oximetry Medical Decision Making - Lab Data Result diagrams: 08/20/19 14:20 08/20/19 14:20 <Christian Woodard - Last Filed: 08/20/19 14:58> - Lab Data Result diagrams: 08/20/19 14:20 08/20/19 14:20 <Izaiah Nielsen - Last Filed: 08/20/19 16:24> - Medical Decision Making EKG shows a paced rhythm at 75 bpm QRS is on a 50 QT interval [address] Woodard signed patient out to me at 3:00. Patient's lab work was complete CT showed no acute abnormality. I went back in and reevaluated the patient he was stating that since he had his PEG tube removed is also 11 pounds and he is having on and off difficulty swallowing. His caregiver in the room stated every time he eats she seems to start coughing he can drink fluids fine but when he starts eating food is when he starts coughing at that point in time the patient often gets fed up and doesn't continue to eat and she believes that's why is losing weight. They did not feel comfortable going home at this time. I spoke with Dr. Gordon he accepted the patient I will be admitting the patient and writing admitting orders I will consult Dr. White. (Izaiah Nielsen) - Lab Data Lab Results 08/20/19 08/20/19 08/20/19 Range/Units 14:20 14:20 14:20 WBC 4.5 (3.8-10.6) k/uL RBC 3.98 L (4.30-5.90) m/uL Hgb 12.4 L (13.0-17.5) gm/dL Hct 37.9 L (39.0-53.0) % MCV 95.3 (80.0-100.0) fL MCH 31.1 (25.0-35.0) pg MCHC 32.6 (31.0-37.0) g/dL RDW 16.1 H (11.5-15.5) % Plt Count 120 L (150-450) k/uL Neutrophils % 72 % Lymphocytes % 19 % Monocytes % 5 % Eosinophils % 2 % Basophils % 0 % Neutrophils # 3.3 (1.3-7.7) k/uL Lymphocytes # 0.9 L (1.0-4.8) k/uL Monocytes # 0.2 (0-1.0) k/uL Eosinophils # 0.1 (0-0.7) k/uL Basophils # 0.0 (0-0.2) k/uL Hypochromasia Slight Anisocytosis Slight Sodium 137 (137-145) mmol/L Potassium 4.4 (3.5-5.1) mmol/L Chloride 102 (98-107) mmol/L Carbon Dioxide 29 (22-30) mmol/L Anion Gap 6 mmol/L BUN 19 (9-20) mg/dL Creatinine 1.30 H (0.66-1.25) mg/dL Est GFR (CKD-EPI)AfAm 64 (>60 ml/min/1.73 sqM) Est GFR (CKD-EPI)NonAf 55 (>60 ml/min/1.73 sqM) Glucose 98 (74-99) mg/dL Plasma Lactic Acid Marlon 0.9 (0.7-2.0) mmol/L Calcium 8.9 (8.4-10.2) mg/dL Magnesium 1.8 (1.6-2.3) mg/dL Total Bilirubin 0.5 (0.2-1.3) mg/dL AST 27 (17-59) U/L ALT 14 (4-49) U/L Alkaline Phosphatase 114 (38-126) U/L Troponin I (0.000-0.034) ng/mL Total Protein 6.2 L (6.3-8.2) g/dL Albumin 3.2 L (3.5-5.0) g/dL Lipase 79 (23-300) U/L Urine Color Urine Appearance (Clear) Urine pH (5.0-8.0) Ur Specific [place] (1.001-1.035) Urine Protein (Negative) Urine Glucose (UA) (Negative) Urine Ketones (Negative) Urine Blood (Negative) Urine Nitrite (Negative) Urine Bilirubin (Negative) Urine Urobilinogen (<2.0) mg/dL Ur Leukocyte Esterase (Negative) Urine RBC (0-5) /hpf Urine WBC (0-5) /hpf Ur Squamous Epith Cells (0-4) /hpf 08/20/19 08/20/19 Range/Units 14:20 15:43 WBC (3.8-10.6) k/uL RBC (4.30-5.90) m/uL Hgb (13.0-17.5) gm/dL Hct (39.0-53.0) % MCV (80.0-100.0) fL MCH (25.0-35.0) pg MCHC (31.0-37.0) g/dL RDW (11.5-15.5) % Plt Count (150-450) k/uL Neutrophils % % Lymphocytes % % Monocytes % % Eosinophils % % Basophils % % Neutrophils # (1.3-7.7) k/uL Lymphocytes # (1.0-4.8) k/uL Monocytes # (0-1.0) k/uL Eosinophils # (0-0.7) k/uL Basophils # (0-0.2) k/uL Hypochromasia Anisocytosis Sodium (137-145) mmol/L Potassium (3.5-5.1) mmol/L Chloride (98-107) mmol/L Carbon Dioxide (22-30) mmol/L Anion Gap mmol/L BUN (9-20) mg/dL Creatinine (0.66-1.25) mg/dL Est GFR (CKD-EPI)AfAm (>60 ml/min/1.73 sqM) Est GFR (CKD-EPI)NonAf (>60 ml/min/1.73 sqM) Glucose (74-99) mg/dL Plasma Lactic Acid Marlon (0.7-2.0) mmol/L Calcium (8.4-10.2) mg/dL Magnesium (1.6-2.3) mg/dL Total Bilirubin (0.2-1.3) mg/dL AST (17-59) U/L ALT (4-49) U/L Alkaline Phosphatase (38-126) U/L Troponin I <0.012 (0.000-0.034) ng/mL Total Protein (6.3-8.2) g/dL Albumin (3.5-5.0) g/dL Lipase (23-300) U/L Urine Color Yellow Urine Appearance Clear (Clear) Urine pH 7.0 (5.0-8.0) Ur Specific [place] 1.013 (1.001-1.035) Urine Protein 2+ H (Negative) Urine Glucose (UA) Negative (Negative) Urine Ketones Negative (Negative) Urine Blood Negative (Negative) Urine Nitrite Negative (Negative) Urine Bilirubin Negative (Negative) Urine Urobilinogen 2.0 (<2.0) mg/dL Ur Leukocyte Esterase Negative (Negative) Urine RBC 1 (0-5) /hpf Urine WBC 2 (0-5) /hpf Ur Squamous Epith Cells <1 (0-4) /hpf Disposition <Christian Woodard - Last Filed: 08/20/19 14:58> Time of Disposition: 16:24 <Izaiah Nielsen - Last Filed: 08/20/19 16:24> Clinical Impression: Dysphagia, Weight loss Disposition: ADMITTED IP TO THIS HOSP Referrals: [facility],Clinic [Primary Care Provider] - 1-2 days
[2019-08-20 14:51] LABS: Anisocytosis Slight; Basophils % (A) 0 %; Eosinophils # (A) 0.1 k/uL (0-0.7); Eosinophils % (A) 2 %; HCT 37.9 % (39.0-53.0); HGB 12.4 gm/dL (13.0-17.5); Hypochromasia Slight; Lymphocytes # (A) 0.9 k/uL (1.0-4.8); Lymphocytes % (A) 19 %; MCH 31.1 pg (25.0-35.0); MCHC 32.6 g/dL (31.0-37.0); MCV 95.3 fL (80.0-100.0); Mean Platelet Volume 9.2; Monocytes # (A) 0.2 k/uL (0-1.0); Monocytes % (A) 5 %; Neutrophils # (A) 3.3 k/uL (1.3-7.7); Neutrophils % (A) 72 %; Platelet Count 120 k/uL (150-450); RBC 3.98 m/uL (4.30-5.90); RDW 16.1 % (11.5-15.5); WBC 4.5 k/uL (3.8-10.6)
[2019-08-20 14:53] LABS: Albumin 3.2 g/dL (3.5-5.0); Calcium 8.9 mg/dL (8.4-10.2); Magnesium 1.8 mg/dL (1.6-2.3); Potassium 4.4 mmol/L (3.5-5.1); Total Bilirubin 0.5 mg/dL (0.2-1.3); Total Protein 6.2 g/dL (6.3-8.2)
--- NOTE | 2019-08-20 15:01 | XR ---
EXAMINATION TYPE: XR chest 1V portable DATE OF EXAM: 08/20/2019 HISTORY: Shortness of breath. COMPARISON: April 02, 2019 TECHNIQUE: Single view of the chest is submitted. FINDINGS: Demonstrated are scattered senescent parenchymal change. There is no evidence for focal infiltrate. The heart is stable. Hilar and mediastinal structures are within normal limits. Degenerative changes are seen of the dorsal spine. IMPRESSION: 1. Chronic changes without evidence for acute pulmonary disease.
--- NOTE | 2019-08-20 15:02 | CT ---
EXAMINATION TYPE: CT brain wo con DATE OF EXAM: 08/20/2019 COMPARISON: 12/19/2012 HISTORY: Weakness, confusion CT DLP: 1087.[address] of the brain was performed. The ventricles, basal cisterns and sulci overlying the cerebral convexities demonstrate mild enlargem ent. Remote insult left cerebral hemisphere redemonstrated. There is no evidence for intracranial hemorrhage or sulcal effacement. There is decreased attenuation about the periventricular white matter and deep white matter of both c erebral hemispheres, compatible with chronic small vessel ischemia. Differential diagnosis does inclu de demyelination. No mass effects are seen.No midline shift. Osseous calvarium is intact. If symptoms persist consider MRI. IMPRESSION: 1. Age related atrophic and chronic small vessel ischemic change without acute intracranial process s een at this time.
[2019-08-20 16:04] LABS: Appearance,Urine Clear (Clear); Bilirubin,Urine Negative (Negative); Blood,Urine Negative (Negative); Color,Urine Yellow; Glucose,Urine (UA) Negative (Negative); Ketones,Urine Negative (Negative); Leukocyte Esterase,Urine Negative (Negative); Nitrite,Urine Negative (Negative); Protein,Urine 2+ (Negative); RBC,Urine 1 /hpf (0-5); Specific Gravity,Urine 1.013 (1.001-1.035); Squamous Epithelial Cell,Urine <1 /hpf (0-4); WBC,Urine 2 /hpf (0-5)
[2019-08-20] MEDS: SODIUM CHLORIDE 0.9% 1,000 ML IV ONE ×2 (19:45→20:20)
[2019-08-20] MEDS ORDERED: Acetaminophen-Codeine 300-30mg TAB PO PRN (20:08)
[2019-08-20] MEDS: SODIUM CHLORIDE 0.9% 1,000 ML IV SCH (20:20)
[2019-08-20] MEDS: ALLOPURINOL 100 MG TAB PO SCH (21:37)
[2019-08-20] MEDS: MAGNESIUM OXIDE 400 MG TAB PO SCH (21:38)
[2019-08-20] MEDS: ATORVASTATIN 40 MG TAB PO SCH (21:38)
[2019-08-20] MEDS: GABAPENTIN 300 MG CAP PO SCH (21:38)
[2019-08-20] MEDS: PANTOPRAZOLE 40 MG TABLET PO SCH (21:38)
[2019-08-21] MEDS: SERTRALINE 100 MG TAB PO SCH (10:10)
[2019-08-21] MEDS: METOPROLOL SUCCINATE (ER) 100 MG TAB.ER.24H PO SCH (10:10)
[2019-08-21] MEDS: ALLOPURINOL 100 MG TAB PO SCH ×2 (10:10→21:07)
[2019-08-21] MEDS: MAGNESIUM OXIDE 400 MG TAB PO SCH ×2 (10:10→21:07)
[2019-08-21] MEDS: SODIUM CHLORIDE 0.9% 1,000 ML IV SCH ×2 (10:11→21:06)
[2019-08-21] MEDS: ASPIRIN 81 MG PO SCH (10:11)
[2019-08-21] MEDS: PANTOPRAZOLE 40 MG TABLET PO SCH ×2 (10:11→16:57)
[2019-08-21] MEDS: GABAPENTIN 300 MG CAP PO SCH ×2 (10:11→21:07)
[2019-08-21 11:16] LABS: INR 2.2 (<1.2); Partial Thromboplastin Time 32.9 sec (22.0-30.0); Prothrombin Time 21.7 sec (9.0-12.0)
--- NOTE | 2019-08-21 11:43 | FL ---
EXAMINATION TYPE: FL barium swallow w video DATE OF EXAM: 08/21/2019 COMPARISON: NONE HISTORY: CVA, coughing TECHNIQUE: Fluoroscopy. FINDINGS: Fluoroscopic guidance was provided for the procedure performed in conjunction with the [facility] pathology department. Please see complete report forthcoming from the Speech Pathology departmen t. Various consistencies from thin liquid to solids were administered. Fluoroscopy time 3 minutes 59 seconds. Number of images: 0. Aspiration was evident during this examination. This appears to come from free spill of thin or necta r thick liquids within the piriform sinuses during swallowing. Appears to be silent. There are multiple episodes of penetration evident during this exam most notably during thin liquids. There is moderate pooling within the vallecula. Pooling is also evident within the piriform sinuses d uring the exam. There was normal propulsion of the bolus. IMPRESSION: 1. Aspiration with additional episodes of penetration. 2. Pooling within the vallecula and piriform sinuses. 3. Please see complete report forthcoming from the speech pathology department.
--- NOTE | 2019-08-21 12:48 | P.HPIM ---
History of Present Illness This is a pleasant 69 years old male with past medical history of heart failure status post AICD, atrial fibrillation on warfarin, CVA/TIA, COPD, hyperlipidemia, hypertension, sleep apnea on CPAP/BiPAP, coronary artery disease status post stent placement. [facility], is poor historian. So information was taken from start of her records. It looks like patient has history of dysphagia and he had PEG tube before, patient accidentally pulled out his PEG tube, he was choking on eating and losing weight so they sent him to the hospital. Patient himself is awake and alert, he denies any chest pain or abdominal pain. He denies any specific symptoms to me. He does not look in distress Vitals are stable and patient is afebrile. Labs including CBC, BMP and liver enzymes were unremarkable except for low hemoglobin of 12.4, elevated creatinine 1.3, and low albumin at 3.2. There is no INR In the emergency room patient got 1 L of normal saline and started at a rate of 75 mL/h. GI been consulted. CT of the brain is negative. Chest x-ray: Chronic changes with no acute process. EKG showing ventricular paced rhythm at 75 BPM Per GI recommended bedside swallow evaluation, with speech and swallow e valuation was evaluated the patient and recommended chopped honey diet. Barium swallow test is pending Review of Systems CONSTITUTIONAL: No fever, no malaise, no fatigue. HEENT: No recent visual problems or hearing problems. Denied any sore throat. CARDIOVASCULAR: No orthopnea, PND, no palpitations, no syncope. PULMONARY: No shortness of breath, no cough, no hemoptysis. GASTROINTESTINAL: No diarrhea, no nausea, no vomiting, no abdominal pain. Normoactive bowel sounds. NEUROLOGICAL: No headaches, no weakness, no numbness. HEMATOLOGICAL: Denies any bleeding or petechiae. GENITOURINARY: Denies any burning micturition, frequency, or urgency. MUSCULOSKELETAL/RHEUMATOLOGICAL: Denies any joint pain, swelling, or any muscle pain. ENDOCRINE: Denies any polyuria or polydipsia. 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 sided weakness,cataracts, bruises easily due to coumadin,does not wear cpap,neuropathy moe. feet History of Any Multi-Drug Resistant Organisms: None Reported Past Surgical History: AICD, Heart Catheterization With Stent Additional Past Surgical History / Comment(s): AICD/Pacemaker, PEG tube placed in [address] 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 Past Drug Use History: None Reported - Past Family History Brother(s) Family Medical History: Deep Vein Thrombosis (DVT) Medications and Allergies Home Medications Medication Instructions Recorded Confirmed Type Allopurinol [Zyloprim] 100 mg PO BID 09/02/17 08/20/19 History Aspirin [Adult Low Dose Aspirin EC] 81 mg PO DAILY 09/02/17 08/20/19 History Gabapentin [Neurontin] 600 mg PO BID 09/02/17 08/20/19 History Omeprazole [PriLOSEC] 20 mg PO BID 09/02/17 08/20/19 History Sertraline HCl [Zoloft] 100 mg PO BID 09/02/17 08/20/19 History Acetaminophen-Codeine 300-30mg 1 tab PO TID PRN 04/01/19 08/20/19 History [Tylenol w/codeine #3] Metoprolol Succinate [Toprol XL] 100 mg PO DAILY 04/01/19 08/20/19 History Magnesium 420mg 1 tab PO BID 08/20/19 08/20/19 History Rosuvastatin Calcium [Crestor] 20 mg PO HS 08/20/19 08/20/19 History Warfarin [Coumadin] 2.5 mg PO SUTUWETHFRSA 08/20/19 08/20/19 History Warfarin [Coumadin] 5 mg PO MO 08/20/19 08/20/19 History Allergies Allergy/AdvReac Type Severity Reaction Status Date / Time fluvastatin AdvReac Nausea & Verified 08/20/19 18:44 Vomiting metolazone [From Zaroxolyn] AdvReac Nausea & Verified 08/20/19 18:44 Vomiting simvastatin AdvReac Nausea & Verified 08/20/19 18:44 Vomiting sulfamethoxazole AdvReac Nausea & Verified 08/20/19 18:44 [From Bactrim] Vomiting trimethoprim [From Bactrim] AdvReac Nausea & Verified 08/20/19 18:44 Vomiting Physical Exam Vitals: Vital Signs Temp Pulse Pulse Resp BP BP Pulse Ox 08/21/19 04:36 97.9 F 69 18 130/80 95 08/20/19 19:18 97.8 F 80 20 124/73 95 08/20/19 17:30 16 128/85 95 08/20/19 17:07 70 18 128/85 98 08/20/19 17:00 77 18 130/83 08/20/19 16:30 69 16 127/80 08/20/19 16:00 70 11 L 130/78 08/20/19 15:30 72 12 139/86 99 08/20/19 15:00 75 16 127/82 96 08/20/19 14:30 71 16 125/84 98 08/20/19 13:15 98.4 F 69 18 133/76 97 Intake and Output 08/20/19 08/21/19 08/21/19 22:59 06:59 14:59 Intake Total 625 250 Balance 625 250 Intake: Intake, IV Titration 325 Amount Sodium Chloride 0.9% 1, 200 000 ml @ 100 mls/hr IV . Q10H ONE Rx#:[id number] Sodium Chloride 0.9% 1, 125 000 ml @ 75 mls/hr IV . [id number] [facility] Rx#:[id number] Oral 300 250 Other: Voiding Method Toilet # Voids 2 1 Weight 90.7 kg -GENERAL: The patient is alert and awake but disoriented , not in any acute distress. Well developed, well nourished. HEENT: Pupils are round and equally reacting to light. EOMI. No scleral icterus. No conjunctival pallor. Normocephalic, atraumatic. No pharyngeal erythema. No thyromegaly. CARDIOVASCULAR: S1 and S2 present. No murmurs, rubs, or gallops. PULMONARY: Chest is clear to auscultation, no wheezing or crackles. ABDOMEN: Soft, nontender, nondistended, normoactive bowel sounds. No palpable organomegaly. MUSCULOSKELETAL: No joint swelling or deformity. EXTREMITIES: No cyanosis, clubbing, or pedal edema. NEUROLOGICAL: Gross neurological examination did not reveal any focal deficits. SKIN: No rashes. No petechiae Results CBC & Chem 7: 08/20/19 14:20 08/20/19 14:20 Labs: Abnormal Lab Results - Last 24 Hours (Table) 08/20/19 08/20/19 08/20/19 Range/Units 14:20 14:20 15:43 RBC 3.98 L (4.30-5.90) m/uL Hgb 12.4 L (13.0-17.5) gm/dL Hct 37.9 L (39.0-53.0) % RDW 16.1 H (11.5-15.5) % Plt Count 120 L (150-450) k/uL Lymphocytes # 0.9 L (1.0-4.8) k/uL Creatinine 1.30 H (0.66-1.25) mg/dL Total Protein 6.2 L (6.3-8.2) g/dL Albumin 3.2 L (3.5-5.0) g/dL Urine Protein 2+ H (Negative) Thrombosis Risk Factor Assmnt - Choose All That Apply Each Factor Represents 1 point: Abnormal pulmonary function (COPD), Obesity (BMI >25) Each Risk Factor Represents 2 Points: Age 61-74 years Each Risk Factor Represents 3 Points: Family history of DVT/PE Thrombosis Risk Factor Assessment Total Risk Factor Score: 7 Thrombosis Risk Factor Assessment Level: High Risk Assessment and Plan Assessment: Dysphagia and swallowing difficulties Weight loss and moderate protein-calorie malnutrition acute kidney injury, mostly prerenal Possible dementia Chronic heart failure status post AICD Chronic atrial fibrillation on warfarin History of CVA/TIA Hypertension Hyperlipidemia Sleep apnea on CPAP/BiPAP History of coronary artery disease status post stent placement COPD, not in acute exacerbation Plan: This is a pleasant 69 years old male who presents with dysphagia and weight loss,acute kidney injury and anemia. continue with gentle hydration.Monitor hemoglobin. Follow-up GI recommendation. Follow-up with barium swallow test. Continue with modified diet as per speech and swallow team Labs and medication were reviewed.. Continue same treatment. Continue with symptomatic treatment. Resume home medication. Monitor lytes and vitals. DVT and GI prophylaxis. Further recommendations of the clinical course of the patient DVT prophylaxis On warfarin GI Prophylaxis: Ppi
[2019-08-21] MEDS: WARFARIN 2.5 MG TAB PO SCH (16:57)
--- NOTE | 2019-08-21 18:17 | CONS ---
CONSULTATION DATE OF DICTATION: 08/21/2019 This patient is a 69-year-old pleasant white male who was admitted to the hospital yesterday when he presented to the hospital because he started having dysphagia for the last 2 or 3 days' duration. Every time he swallows food he is having coughing and choking sensation, and he came into the emergency room and was subsequently admitted to the hospital for further evaluation. The patient had a similar episode in May of this year and he was transferred to [facility], as there was no neurologist available in this area. He subsequently had a PEG tube placement, following which he had speech therapy, and dysphagia significantly improved. He had a PEG tube removed in May of this year. The patient apparently was eating well until the last 2 or 3 days. He did have a modified barium swallow done this morning with radiofluoroscopic swallow which revealed aspiration with evidence of penetration. His barium was pooling in the valleculae and the pyriform sinuses, all of this consistent with oropharyngeal dysphagia, most likely from neurological causes. The patient denies any abdominal pain. He reports no heartburn. No odynophagia. PAST MEDICAL HISTORY: His past medical history is significant for prior history of stroke, history of hypertension, hyperlipidemia, COPD, sleep apnea, coronary artery disease, atrial fibrillation, on Coumadin. PAST SURGICAL HISTORY: CVA in 2009, cardiac catheterization, AICD placement, PEG tube placed in January of 2019 which was subsequently removed in May of 2019. MEDICATIONS: MEDICATIONS AT HOME: MEDICATIONS AT HOME: Zyloprim, Coumadin, aspirin, Neurontin, Prilosec, Zoloft, Tylenol No.3, Toprol, magnesium, Crestor. ALLERGIES: ZAROXOLYN, SIMVASTATIN, BACTRIM, FLUVASTATIN. SOCIAL HISTORY: Remote history of smoking, heavy alcohol use. FAMILY HISTORY: Brother had DVT. REVIEW OF SYSTEMS: CARDIOPULMONARY: No chest pain or shortness of breath. GENITOURINARY: No dysuria or hematuria. MUSCULOSKELETAL: Unremarkable. SKIN: Unremarkable. ENDOCRINE: Unremarkable. PSYCHIATRIC: Unremarkable. NEUROLOGY: Unremarkable. ENT/VISION: Unremarkable. CONSTITUTIONAL: No recent weight loss. No fever, chills, night sweats. PHYSICAL EXAMINATION: He appears comfortable. No apparent distress. Vital signs are stable. Blood pressure 134/78, pulse rate 68, temperature 98.2. HEENT examination unremarkable. Conjunctivae pink. Sclerae anicteric. Oral cavity no lesions. NECK: No JVD or lymph node enlargement. CHEST: Clear to auscultation. HEART: Regular rate and rhythm. ABDOMEN: Soft. It was non-tender, non-distended. Bowel sounds are positive. No organomegaly. EXTREMITIES: No pedal edema. SKIN: No rashes. NEUROLOGIC: Alert and oriented x3. No focal deficits. LABS: WBC 4.5, hemoglobin 12.4, platelets normal. Basic metabolic panel is within normal limits. PT is 21.7 and INR is 2.2. Coronavirus PCR is negative. IMPRESSION: 1. Oropharyngeal dysphagia for the last few days' duration. Patient had videofluoroscopic barium swallow done this morning that showed evidence of aspiration and penetration. The patient had a similar episode in January of 2019 and was transferred to [facility] and had extensive neurological workup, records of which are not available at the time of this dictation. However, because of oropharyngeal dysphagia he had a PEG tube placed that was subsequently removed in May of 2019. EGD done at the time of PEG removal in May of 2019 was unremarkable, with no evidence of esophagitis or esophageal stricture. At this time it is likely we are dealing with neuromuscular causes of dysphagia. 2. History of atrial fibrillation, on Coumadin. 3. History of sleep apnea. 4. History of hypertension. 5. History of cerebrovascular accident in 2009. RECOMMENDATIONS: I had a lengthy discussion with the patient regarding the videofluoroscopic barium swallow evaluation that showed evidence of aspiration, and he may need to consider a PEG tube replacement. At this time he refuses to have any endoscopic intervention or a PEG tube placement. I discussed with Dr. Wilson and at this time will obtain neurological consultation. We will follow with you closely. Thank you for this consultation. MMODL / IJN: [id number] /
[2019-08-21] MEDS: ATORVASTATIN 40 MG TAB PO SCH (21:07)
[2019-08-21] MEDS: NICOTINE 14MG/24HR PATCH TRANSDERM SCH (21:59)
[2019-08-21] MEDS ORDERED: IOPAMIDOL CONTRAST (ORAL USE) VIAL PO PRN (22:15)
--- NOTE | 2019-08-21 23:58 | CT ---
EXAMINATION TYPE: CT chest abdomen w con DATE OF EXAM: 08/21/2019 COMPARISON: Abdomen CT scan 11/29/2015. HISTORY: Aspiration. Metastatic disease possible CT DLP: mGycm Automated exposure control for dose reduction was used. CONTRAST: Performed , patient injected with mL of . There is oral and IV contrast. There is some mild infiltrate and atelectasis at the right posterior lung base. There is no evidence of a pulmonary mass. There is 1.5 cm low-density infiltrate in the right upper lobe. There is mild pu lmonary emphysema. Thoracic aorta is atheromatous. There is no aneurysm or dissection. There are no hilar masses. There are a few mediastinal peritracheal lymph nodes that measure up to almost 2 cm. I see no filling defec ts in the pulmonary arteries. Heart size is normal. There is no pericardial effusion. Liver shows no focal defect. Bile ducts are n ot dilated. Spleen is intact. Stomach is intact. There are multiple cholesterol gallstones. There is no pancreatic mass. There is no adrenal mass. Kidneys show satisfactory contrast opacification. There is no hydronephrosi s. There is 2.6 cm cortical cyst anterior left kidney. There is large left extrarenal pelvis. The ure ters are not dilated. Abdominal aorta is atheromatous. I see no evidence of a bowel obstruction. There is no sign of mesenteric edema. There is no evidence of free air. There is no sign of ascites. I see no retroperitoneal adenopathy. There is sclerosis in the superior endplate of L4 with 10% loss of height. There is 15% wedging of T10 vertebral body with osteosclerosis. There is 10% wedging of T 8 vertebra. Sternum is intact. I see no focal bone destruct ion. There is apparent left side L5 laminectomy defect. IMPRESSION: There is infiltrate and atelectasis right lung base. Nonspecific small right upper lobe infiltrate. M ild mediastinal adenopathy. Atherosclerotic vascular disease. cholelithiasis. Left renal cortical cy st increased compared to old exam. Enlarged left renal pelvis increased compared to old exam but I do not suspect obstruction. No significant caliectasis. T10 compression fracture new compared to old exam. L4 compression new compared to old exam.
--- NOTE | 2019-08-22 01:39 | CONS ---
CONSULTATION DATE OF SERVICE: 08/21/2019 REASON FOR CONSULT: Dysphagia. Mr. Apodaca is a 69-year-old right-handed gentleman with a known history for progressive dysphagia. He has a known history of atrial fibrillation, heart failure and progressive generalized weakness. He was brought in by his girlfriend due to increased weakness and difficulty swallowing. Review of his chart indicates that he had undergone a PEG placement for the back in January of 2019 and this was removed by his request. Most of his evaluation workup was done at [facility]. Since the PEG has been removed (he cannot recall the date), he has lost considerable weight. Mr. Apodaca has a significant history of smoking 3/4 of a pack a day since the age of 10. We discussed possibilities for throat cancer as being the cause for the difficulty swallowing with this longstanding history of smoking. To his knowledge he has never been evaluated for cancer. Mr. Apodaca also expresses that he is not really interested in finding a cure at this time. He seems to have accepted the situation and the progressive weight loss. REVIEW OF SYSTEMS: A 10-point review of systems was obtained with positive pertinents and negatives related to the History of Present Illness. PAST MEDICAL HISTORY: Atrial fibrillation, heart failure. SURGICAL HISTORY: Patient was a poor historian. He could not provide much history other than the PEG placement. SOCIAL HISTORY: Single. Chronic smoker. Intermittent alcohol use. Denies using illegal drugs. PHYSICAL EXAMINATION: GENERAL: Cachectic male, adult failure to thrive. No acute distress. HEENT: Clear sclerae. Poor oral hygiene. Numerous dental cavities noted. NECK: Supple. No cervical lymphadenopathy or thyromegaly noted. No pain on swallowing. PULSES: Radial and pedal pulses are equal and symmetric. SKIN: Multiple bruises of various aging. EXTREMITIES: No edema noted of the hands or feet. Mild clubbing of the digits noted in the hands. NEUROLOGIC EXAM: MENTAL STATUS: Awake, alert, oriented. Speech is fluent. Easily distracted. Oriented to time, place, and person. PUPILS: 2 mm equally reactive to light and accommodation. CRANIAL NERVES: Extraocular movements are full. There is no nystagmus noted on vertical or horizontal gaze. Face is symmetric. Palate elevates symmetrically. Cranial nerve 8 is intact by clinical observation. Tongue is midline without fasciculations or deviation. Shoulder shrug is intact. MOTOR EXAMINATION: The patient has strong 5/5 strength on flexion, extension, and rotation. Strength is 5/5 throughout. Pronator drift negative. No fasciculations or muscle twitching noted. COORDINATION TESTING: The patient had a hard time following tasks but after multiple attempts he was finally able to execute [id number] testing. He had some mild intention tremor noted in both hands bilaterally. Sequential finger tapping was intact. DEEP TENDON REFLEXES: +2 in the biceps, triceps, brachioradialis. Patellar reflexes are +2 bilaterally without crossed adduction. Ankle jerk on the right is intact. Ankle jerk on the left is diminished. Plantar responses are mute bilaterally. There is no ankle clonus elicited. SENSORY EXAMINATION: Grossly intact to light touch throughout. GAIT: The patient is able to transfer from sitting to standing without difficulty. Gait formally not assessed at this time. ASSESSMENT: This is a 69-year-old chronic smoker since the age of 10 who has presented with over the past year progressive dysphagia, difficulty with swallowing liquids and solids. This situation evolved to the point where a year ago in January he required a PEG tube in order to have nutritional support. Within a certain amount of time after the PEG was placed he wanted it removed, and subsequently has reverted back to trying to eat and dealing with the same situation of difficulty swallowing. He has gone through a comprehensive workup in [facility] and has had a swallow evaluation here. This patient's strength is intact but this does not diminish his sense of weakness. The possibility of myasthenia gravis should be worked up. He does present, however, with good strength and intact deep tendon reflexes. However, myasthenia gravis of the Jeffers-Mercado variant can be isolated to the bulbar muscles. This patient's longstanding history of smoking puts him at increased risk for throat cancer as well as lung cancer. With his rapid weight loss and progressive difficulty swallowing, I am concerned that this patient may have an underlying neoplastic process. Overall, the neurologic exam was normal with the exception of mild intention tremor noted and trace ankle jerk on the left. RECOMMENDATIONS: 1. Obtain CT of the chest and abdomen to workup possible neoplastic process. 2. Continue with recommendations by speech pathology for modified diet. 3. This patient is not interested in entertaining having another PEG placed. We will have to work with what he wants to do and what he is capable of doing. 4. Obtain labs and acetylcholine receptor antibody test to further evaluate for myasthenia gravis, along with a thyroid panel and CK. This patient's prognosis remains guarded. Further recommendations will be made as this case evolves. Neurology is not officially on site this weekend but Dr. Shepard will be available by phone at [phone] for any other questions or concerns. I will also be checking in with the nurses to see how he is feeling. Otherwise, I will be back in on Saturday morning to re-evaluate. MMODL / IJN: [id number] /
[2019-08-22 07:04] LABS: Basophils % (A) 0 %; Eosinophils # (A) 0.1 k/uL (0-0.7); Eosinophils % (A) 2 %; HCT 41.6 % (39.0-53.0); Hypochromasia Slight; Lymphocytes # (A) 1.1 k/uL (1.0-4.8); Lymphocytes % (A) 25 %; MCHC 31.3 g/dL (31.0-37.0); Mean Platelet Volume 9.2; Monocytes # (A) 0.3 k/uL (0-1.0); Monocytes % (A) 7 %; Neutrophils # (A) 2.8 k/uL (1.3-7.7); Neutrophils % (A) 65 %; Platelet Count 122 k/uL (150-450); RBC 4.34 m/uL (4.30-5.90); RDW 15.9 % (11.5-15.5); WBC 4.3 k/uL (3.8-10.6)
[2019-08-22 07:11] LABS: INR 2.5 (<1.2); Prothrombin Time 24.3 sec (9.0-12.0)
[2019-08-22 07:36] LABS: Calcium 8.7 mg/dL (8.4-10.2); Magnesium 1.8 mg/dL (1.6-2.3); Potassium 4.4 mmol/L (3.5-5.1)
[2019-08-22 07:48] LABS: T4, Free (Free Thyroxine) 1.19 ng/dL (0.78-2.19)
[2019-08-22] MEDS: ASPIRIN 81 MG PO SCH (09:19)
[2019-08-22] MEDS: GABAPENTIN 300 MG CAP PO SCH ×2 (09:19→20:14)
[2019-08-22] MEDS: METOPROLOL SUCCINATE (ER) 100 MG TAB.ER.24H PO SCH (09:19)
[2019-08-22] MEDS: MAGNESIUM OXIDE 400 MG TAB PO SCH ×2 (09:19→20:14)
[2019-08-22] MEDS: PANTOPRAZOLE 40 MG TABLET PO SCH ×2 (09:19→17:39)
[2019-08-22] MEDS: ALLOPURINOL 100 MG TAB PO SCH ×2 (09:19→20:14)
[2019-08-22] MEDS: NICOTINE 14MG/24HR PATCH TRANSDERM SCH (09:19)
[2019-08-22] MEDS: SERTRALINE 100 MG TAB PO SCH (09:20)
[2019-08-22 10:30] LABS: Protein, Total 5.6 g/dL (6.2-8.2)
--- NOTE | 2019-08-22 13:01 | PN ---
PROGRESS NOTE DATE OF DICTATION: August 22, 2019. The patient is a 69-year-old pleasant white male admitted to hospital with oropharyngeal dysphagia secondary to possible neurological causes. He had a modified barium swallow done yesterday, video fluoroscopy that showed evidence of aspiration and penetration with certain consistencies of food. Speech pathology has recommended thick pureed diet and patient is doing much better. He was seen by Neurology and had a CT of the abdomen and pelvis as well as chest done to rule out neoplasm that was negative. The patient this morning is feeling better. He denies any coughing. He in fact states that he had good breakfast and able to tolerate food without much symptoms of aspiration. He continued to refuse to have a PEG tube placement at the present time. PHYSICAL EXAMINATION: Appears comfortable, no apparent distress. Vital signs is stable. Blood pressure 124/77, pulse rate 70, temperature 97.7. HEENT examination unremarkable. Conjunctivae pink. Sclerae anicteric. Oral cavity no lesions. NECK: No JVD or lymph node enlargement. CHEST: Clear to auscultation. HEART: Regular rate and rhythm. ABDOMEN: Soft. Bowel sounds are positive. No organomegaly. EXTREMITIES: No pedal edema. SKIN no rashes. NEURO: He is alert and oriented x3. No focal deficits. CT of the chest, abdomen, and pelvis showed some infiltrate and atelectasis of the right lung base, left renal cortical , cholelithiasis, T10 compression fracture. IMPRESSION: 1. Oropharyngeal dysphagia, probably secondary to neuromuscular etiology. Modified barium swallow done yesterday showed evidence of penetration and aspiration. Currently on a thick pureed diet as per speech pathology and patient is doing much better. He refuses to have a PEG tube placement as described above. He did have an EGD with a PEG tube placement in January of 2019 for the same reason and subsequently with speech therapy, his symptoms have improved and the PEG tube was removed in May of this year. Neurology following the patient. RECOMMENDATIONS: 1. Continue with thick pureed diet. 2. We will sign off at this time. Please call us if needed. Thank you for this consultation. MMODL / IJN: [id number] /
[2019-08-22] MEDS: SODIUM CHLORIDE 0.9% 1,000 ML IV SCH (13:20)
--- NOTE | 2019-08-22 16:28 | PN ---
PROGRESS NOTE DATE OF SERVICE: 08/22/2019 This 69-year-old gentleman who was admitted with dysphagia, was previously evaluated extensively at [facility]. Details are not available, but apparently at that time a PEG tube inserted which the patient removed after a few months and currently the patient presented with dysphagia and swallowing difficulties and the swallowing evaluation did show some speech difficulties. Dr. Anglin has performed upper endoscopy in May of this year during which time she removed the previous PEG tube, but however, no abnormalities were noted at this time. Currently the patient is being closely monitored. Patient refused repeat PEG tube implantation despite several discussions and the patient is adamant that the patient is able to eat with some modifications as suggested by the speech pathology at this time. Neurology, Dr. Shepard is also following the patient closely and requesting further information from [facility] at this time. PAST MEDICAL HISTORY: Reviewed. REVIEW OF SYSTEMS: CARDIOVASCULAR No angina or palpitations. RESPIRATORY Occasional cough. GI As mentioned earlier. NERVOUS No numbness. Mild weakness. CURRENT MEDICATIONS ARE: 1. Tylenol No.3 t.i.d. p.r.n. 2. Allopurinol 100 mg p.o. b.i.d. 3. Aspirin 81 mg p.o. daily. 4. Lipitor 40 mg q.h.s. 5. Neurontin 600 mg p.o. b.i.d. 6. Magnesium oxide 400 mg p.o. b.i.d. 7. Toprol-XL 100 mg p.o. daily. 8. Coumadin. 9. Habitrol 14 mcg. 10.Protonix 40 mg p.o. b.i.d. 11.Zoloft 100 mg daily. 12.Coumadin 2.5 mg Saturday, Saturday, Saturday, , Saturday, Saturday. 13.Cortef 5 mg q.h.s. scheduled Saturday. PHYSICAL EXAM: Patient is alert, oriented x2. Pulse 69, blood pressure 113/60, respirations 17, temperature is 97.6, pulse ox 98% on room air. HEENT: Conjunctivae normal. Oral mucosa moist. NECK: No jugular venous distention. No lymph node enlargement. CARDIOVASCULAR: S1, S2. RESPIRATORY: Diminished breath sounds at the bases. A few scattered rhonchi and crackles. Respiratory wheezing also present. ABDOMEN: Soft, nontender. LEGS: No edema, no swelling. NERVOUS SYSTEM: Diffusely weak. LABS: WBC 4.2, hemoglobin 13, platelets 122, INR is 2.5 and creatinine is 1.3. ASSESSMENT: 1. Dysphagia. for evaluation, possible neurological cause. Rule out malignancy per Neurology. 2. Weight loss and moderate protein-calorie malnutrition. 3. Acute kidney injury, possibly prerenal. 4. Dehydration. 5. Possible dementia, underlying. 6. Congestive heart failure status post AICD with chronic systolic dysfunction possibly. 7. Chronic atrial fibrillation on Coumadin. 8. History of cerebrovascular accident/transient ischemic attack. 9. Hypertension. 10.Hyperlipidemia. 11.History of sleep apnea. 12.History of coronary artery disease, stent placement. 13.Chronic obstructive pulmonary disease, not in acute exacerbation. 14.Coumadin monitoring. 15.Mild thrombocytopenia. 16.History of sleep apnea. 17.History of PEG tube placement and removal in May. 18.History of EGD in May. 19.History of anxiety, depression, posttraumatic stress disorder. 20.History of continued ongoing nicotine dependence. 21.History of ETOH heavily previously. RECOMMENDATIONS AND DISCUSSION: In this 69-year-old gentleman who presented with multiple complex medical issues, we will monitor the patient closely, continue the current management and symptomatic treatment. Otherwise, will resume the current medications and continue with speech pathology recommendations and dysphagia diet. Other than that, I would recommend honey thick liquids 1-1 solution, no straws, aspiration precautions. CT scan of the chest, abdomen and pelvis also recommended by Neurology which showed no acute abnormality except some mediastinal lymphadenopathy which needs to be followed up in the outpatient setting. Otherwise, the CT scan showed possibly early infiltrates. I recommend a brief course of antibiotics at this time and continue to monitor. Prognosis guarded because of multiple complex medications. See orders for details. MMODL / IJN: [id number] /
[2019-08-22] MEDS: WARFARIN 2.5 MG TAB PO SCH (17:40)
[2019-08-22] MEDS: PIPERACILLIN-TAZOBACTAM 3.375 GM in SODIUM CHLORIDE 0.9% 100 ML IVPB SCH (17:40)
[2019-08-22] MEDS: ATORVASTATIN 40 MG TAB PO SCH (20:14)
[2019-08-23] MEDS: SODIUM CHLORIDE 0.9% 1,000 ML IV SCH ×2 (00:30→17:31)
[2019-08-23] MEDS: PIPERACILLIN-TAZOBACTAM 3.375 GM in SODIUM CHLORIDE 0.9% 100 ML IVPB SCH ×4 (00:30→23:46)
[2019-08-23 06:38] LABS: Basophils % (A) 0 %; Eosinophils # (A) 0.1 k/uL (0-0.7); Eosinophils % (A) 2 %; HCT 38.9 % (39.0-53.0); HGB 12.4 gm/dL (13.0-17.5); Hypochromasia Slight; Lymphocytes # (A) 0.9 k/uL (1.0-4.8); Lymphocytes % (A) 18 %; MCH 30.2 pg (25.0-35.0); MCHC 31.8 g/dL (31.0-37.0); Mean Platelet Volume 8.9; Monocytes # (A) 0.2 k/uL (0-1.0); Monocytes % (A) 5 %; Neutrophils # (A) 3.6 k/uL (1.3-7.7); Neutrophils % (A) 74 %; Platelet Count 114 k/uL (150-450); RDW 15.9 % (11.5-15.5); WBC 4.8 k/uL (3.8-10.6)
[2019-08-23 06:42] LABS: INR 2.1 (<1.2); Prothrombin Time 20.1 sec (9.0-12.0)
[2019-08-23 06:50] LABS: Calcium 8.5 mg/dL (8.4-10.2); Magnesium 1.8 mg/dL (1.6-2.3)
[2019-08-23] MEDS: PANTOPRAZOLE 40 MG TABLET PO SCH ×2 (09:13→17:32)
[2019-08-23] MEDS: GABAPENTIN 300 MG CAP PO SCH ×2 (09:14→20:47)
[2019-08-23] MEDS: ALLOPURINOL 100 MG TAB PO SCH ×2 (09:14→20:47)
[2019-08-23] MEDS: NICOTINE 14MG/24HR PATCH TRANSDERM SCH (09:14)
[2019-08-23] MEDS: ASPIRIN 81 MG PO SCH (09:14)
[2019-08-23] MEDS: SERTRALINE 100 MG TAB PO SCH (09:15)
[2019-08-23] MEDS: MAGNESIUM OXIDE 400 MG TAB PO SCH ×2 (09:15→20:48)
[2019-08-23] MEDS: METOPROLOL SUCCINATE (ER) 100 MG TAB.ER.24H PO SCH (09:15)
--- NOTE | 2019-08-23 17:03 | XR ---
EXAMINATION TYPE: XR chest 1V portable DATE OF EXAM: 08/23/2019 COMPARISON: Prior chest x-ray dated 08/20/2019 HISTORY: Pneumonia TECHNIQUE: Single frontal view of the chest is obtained. FINDINGS: There is no significant interval change. Minimal patchy density present in the right lower lobe. Postprocedural changes are again noted. Prominence of pulmonary artery suggests pulmonary lisa ry hypertension. IMPRESSION: Stable exam, correlate for pulmonary artery hypertension. Right lower lobe pneumonia.
[2019-08-23] MEDS: WARFARIN 2.5 MG TAB PO SCH (17:32)
--- NOTE | 2019-08-23 19:59 | PN ---
PROGRESS NOTE DATE OF SERVICE: 08/23/2019 This 69-year-old gentleman who was admitted with dysphagia, apparently had a failed swallow evaluation, but however the patient is not willing for any PEG tube placement at this time. Neurology is also evaluating the patient. The patient did have some workup at [facility]. The details are not available at this time. The previous chest x-ray showed some increased streaking in the lower lobes. The EKG showed ventricular paced rhythm with wide-complex QRS complexes. PAST MEDICAL HISTORY: Reviewed. REVIEW OF SYSTEMS: Cardiovascular: No angina or palpitations. Otherwise, as mentioned earlier. Respiration: No cough. GI mentioned earlier. : No dysuria. Nervous system: As mentioned earlier. CURRENT MEDICATIONS: 1. Tylenol No.3. 2. Zyloprim. 3. Aspirin 81 mg. 4. Lipitor 40 mg. 5. Neurontin 600 mg p.o. b.i.d. 6. Magnesium oxide 400 mg b.i.d. 7. Toprol-XL. 8. Habitrol 14. 9. Protonix. 10.Zosyn 3.375 IV q.8. 11.Zoloft 100 mg p.o. daily. 12.Coumadin 2.5 mg and 5 mg on Saturday. PHYSICAL EXAM: Patient is alert, oriented x3. Pulse 70. Blood pressure 120/89, respirations 16, temperature 98.6, pulse ox 97 percent on room air. HEENT: Conjunctivae normal. NECK: No JVD. CARDIOVASCULAR: S1, S2 muffled. RESPIRATIONS: Breath sounds diminished in the bases. A few scattered rhonchi and crackles. ABDOMEN: Soft, nontender. No mass palpable. LEGS no edema. No swelling. NERVOUS SYSTEM: No focal deficits. LABS: WBC 4.8, hemoglobin 12.4, platelets 114, INR is 2.1. Creatinine is 1.38. Doll virus is negative. ASSESSMENT: 1. Dysphagia for evaluation possible neurological causes, rule out malignancy per Neurology. 2. Weight loss and moderate protein calorie malnutrition. 3. Acute kidney injury possibly prerenal. 4. Dehydration. 5. Possible dementia, underlying. 6. Congestive heart failure, status post AICD with chronic systolic dysfunction, possibly. 7. Chronic atrial fibrillation on Coumadin. 8. History of cerebrovascular accident, transient ischemic attack. 9. Hypertension. 10.Hyperlipidemia. 11.History of sleep apnea. 12.History of coronary artery disease, stent placement. 13.Chronic obstructive pulmonary disease, not in acute exacerbation. 14.Coumadin monitoring. 15.Mild thrombocytopenia. 16.Obstructive sleep apnea. 17.History of PEG tube placement, removal in May. 18.History of EGD in May. 19.History of anxiety, depression, posttraumatic stress disorder. 20.History of continued ongoing nicotine dependence. 21.History of EtOH heavy previously. RECOMMENDATIONS AND DISCUSSION DISCUSSION: In this 69-year-old gentleman who presented with multiple complex medical issues, we will monitor the patient closely, continue the current medications. Continue symptomatic treatment. Otherwise, assist with feeds and aspiration precautions. We will discuss with speech pathology tomorrow. Otherwise, we will continue the antibiotic. We will repeat a chest x-ray to rule out possibility of an extensive pneumonic process. Otherwise, overall prognosis guarded as mentioned earlier. Patient did have some workup at [facility]. Discussed the case with Neurology, Dr. Shepard, who recommended close followup with local neurologist and we will arrange for the same. Otherwise continue to monitor. Guarded prognosis. further recommendations to follow. MMODL / IJN: [id number] /
[2019-08-23] MEDS: ATORVASTATIN 40 MG TAB PO SCH (20:47)
--- NOTE | 2019-08-23 23:09 | PN ---
PROGRESS NOTE DATE OF SERVICE: August 23, 2019 Patient is a 69-year-old pleasant white male admitted to the hospital with oropharyngeal dysphagia secondary to possible neuromuscular causes. The patient is on modified diet and tolerating well. Today he states that he ate scrambled eggs for breakfast, has no difficulty swallowing. In fact, he denies any choking episodes. No coughing episodes. Overall he is doing well. He was evaluated by Neurology and CT of the abdomen and pelvis as well as chest done yesterday did not show any evidence of malignancy. PHYSICAL EXAMINATION: He appears comfortable. No apparent distress. VITAL SIGNS: Stable. Blood pressure is 129/89, pulse rate 72, temperature 98.6. HEENT examination unremarkable. Conjunctivae pink. Sclerae anicteric. Oral cavity no lesions. NECK: No JVD or lymph node enlargement. CHEST: Clear to auscultation. HEART: Regular rate and rhythm. ABDOMEN: Soft. Bowel sounds are positive. No organomegaly. EXTREMITIES: No pedal edema. SKIN: No rashes. NEUROLOGIC: Alert and oriented x3. No focal deficits. LABS: From today WBC 4.8, hemoglobin 12.4, platelets 114. BUN and creatinine slightly elevated at 1.38. IMPRESSION: 1. Oropharyngeal dysphagia, most likely secondary to neuromuscular causes. Presently on modified diet, tolerating well with clinically no evidence of aspiration. 2. History of PEG tube placement in January of 2019 and subsequent removal in May of 2019. EGD done at that time was unremarkable. 3. Acute kidney injury, gradually improving. 4. Pneumonia on broad-spectrum antibiotics. RECOMMENDATIONS: 1. Continue with antibiotics. 2. Encourage oral intake. 3. Continue with modified diet as recommended by speech pathology. Thank you for this consultation. We will follow with you closely. MMODL / IJN: [id number] /
[2019-08-24 06:20] LABS: Basophils % (A) 0 %; Eosinophils # (A) 0.1 k/uL (0-0.7); Eosinophils % (A) 2 %; HCT 41.6 % (39.0-53.0); HGB 12.9 gm/dL (13.0-17.5); Hypochromasia Slight; Lymphocytes % (A) 21 %; MCH 29.5 pg (25.0-35.0); Mean Platelet Volume 9.9; Monocytes # (A) 0.3 k/uL (0-1.0); Monocytes % (A) 5 %; Neutrophils # (A) 3.4 k/uL (1.3-7.7); Neutrophils % (A) 70 %; Platelet Count 114 k/uL (150-450); RBC 4.38 m/uL (4.30-5.90); RDW 15.8 % (11.5-15.5); WBC 4.9 k/uL (3.8-10.6)
[2019-08-24 06:26] LABS: INR 1.9 (<1.2); Prothrombin Time 18.4 sec (9.0-12.0)
[2019-08-24 06:27] LABS: Calcium 8.8 mg/dL (8.4-10.2); Potassium 4.3 mmol/L (3.5-5.1)
[2019-08-24] MEDS: SODIUM CHLORIDE 0.9% 1,000 ML IV SCH ×2 (07:20→17:05)
[2019-08-24] MEDS: METOPROLOL SUCCINATE (ER) 100 MG TAB.ER.24H PO SCH (08:39)
[2019-08-24] MEDS: ALLOPURINOL 100 MG TAB PO SCH ×2 (08:40→20:28)
[2019-08-24] MEDS: PANTOPRAZOLE 40 MG TABLET PO SCH ×2 (08:40→17:05)
[2019-08-24] MEDS: PIPERACILLIN-TAZOBACTAM 3.375 GM in SODIUM CHLORIDE 0.9% 100 ML IVPB SCH ×3 (08:40→23:47)
[2019-08-24] MEDS: GABAPENTIN 300 MG CAP PO SCH ×2 (08:40→20:28)
[2019-08-24] MEDS: ASPIRIN 81 MG PO SCH (08:41)
[2019-08-24] MEDS: MAGNESIUM OXIDE 400 MG TAB PO SCH ×2 (08:41→20:28)
[2019-08-24] MEDS: NICOTINE 14MG/24HR PATCH TRANSDERM SCH (08:41)
[2019-08-24] MEDS: SERTRALINE 100 MG TAB PO SCH (08:47)
--- NOTE | 2019-08-24 12:03 | PN ---
PROGRESS NOTE DATE OF SERVICE: 08/24/2019 Patient is a 69-year-old pleasant white male admitted to hospital with oropharyngeal dysphagia secondary to possible neuromuscular disorder. Recent upper endoscopy in May of 2019 was unremarkable. He had modified barium swallow done that showed evidence of aspiration and penetration. He refused the PEG tube placement. He is on pureed diet, tolerating well. Denies any symptoms. He had aspiration pneumonia, on broad-spectrum antibiotics. PHYSICAL EXAMINATION: Appears comfortable, no apparent distress. Vital signs stable. Blood pressure is 127/75, pulse is 69, temperature 97.4. HEENT: Examination unremarkable, conjunctivae pink. Sclerae anicteric. Oral cavity no lesions. NECK: No JVD or lymph node enlargement. CHEST: Clear to auscultation. HEART: Regular rate and rhythm. ABDOMEN: Soft. Bowel sounds are positive. No organomegaly. EXTREMITIES: No pedal edema. NEUROLOGIC: Alert and oriented x3. No focal deficits. X-RAY: Chest x-ray done yesterday showed minimal patchy density in the right lower lobe consistent with right lower lobe pneumonia. IMPRESSION: 1. Aspiration pneumonia on broad-spectrum antibiotics, doing well. 2. Oropharyngeal dysphagia most likely secondary to neuromuscular disorder. Neurology following the patient. EGD 3 months ago was unremarkable. He had a PEG tube placed in January of 2019 and subsequently removed in May of 2019. Modified barium swallow did show evidence of aspiration as well as penetration. The patient refuses to have a PEG tube placement. RECOMMENDATIONS: 1. Continue with modified diet. 2. Speech and swallow rehabilitation on outpatient basis. 3. Follow up with neurologist on outpatient basis. 4. Continue antibiotics. We will follow with you. MMODL / IJN: [id number] /
[2019-08-24] MEDS ORDERED: WARFARIN 5 MG TAB PO SCH (18:00)
--- NOTE | 2019-08-24 20:27 | PN ---
PROGRESS NOTE DATE OF SERVICE: 08/24/2019 This 69-year-old gentleman had a complicated complex recent past medical history involving dysphagia, which was evaluated in [facility] at length and was recommended PEG tube placement. Details unknown at this time but apparently after few months the patient presented to Dr. Anglin's office saying that the PEG tube should be removed and Dr. Anglin removed the PEG tube per the patient's recommendations. The EGD done during that time did not show any acute abnormality. The patient apparently had only 1 aspiration after that and the patient admitted with aspiration pneumonia. The speech pathology swallow evaluation showed multiple abnormalities including vallecular pulling, which is suggestive of neurological abnormality. Neurology was consulted and Dr. Shepard has recommended myasthenia antibody testing and the patient being closely monitored at this time. The patient on IV antibiotics. Past medical history reviewed. REVIEW OF SYSTEMS: Cardiovascular system: No angina. Respirations: No cough. GI: As mentioned earlier. no dysuria. Nervous systems: No numbness, weakness. CURRENT MEDICATIONS: Reviewed and include: 1. Tylenol No.3. 2. Zyloprim 100 mg p.o. b.i.d. 3. Aspirin 81 mg. 4. Lipitor 40 mg q.h.s. 5. Neurontin 600 mg p.o. b.i.d. 6. Magnesium oxide 400 mg p.o. b.i.d. 7. Toprol-XL 100 mg p.o. daily. 8. Coumadin dosing. 9. Habitrol 14 daily. 10.Zosyn 3.375 IV q.8. 11.Zoloft. 12.Coumadin. PHYSICAL EXAMINATION: Patient is alert, oriented x3. Pulse 67, blood pressure 126/80, respirations 17, temperature 98.2, pulse ox 94% on room air. HEENT is conjunctivae normal. NECK: No JVD. Cardiovascular system: S1, S2 muffled. RESPIRATORY: Breath sounds diminished in the bases. Bilateral scattered rhonchi and crackles. ABDOMEN: Soft, nontender. No mass palpable. LEGS: No edema. No swelling. NERVOUS SYSTEM: Diffusely weak. LABS: WBC 4.2, hemoglobin 12.9, sodium 140, potassium 4.2, creatinine is 1.43. ASSESSMENT: 1. Dysphagia for evaluation possible secondary to neurological illness, rule out malignancy per Neurology. 2. Weight loss and moderate protein calorie malnutrition. 3. Acute kidney injury, possibly prerenal acute renal failure. 4. Dehydration present on admission. 5. Possible dementia, underlying. 6. Congestive heart failure, status post AICD and as well as chronic systolic dysfunction possibly. 7. Chronic atrial fibrillation on Coumadin. 8. History of cerebrovascular accident, transient ischemic attack. 9. Hypertension. 10.Hyperlipidemia. 11.History of sleep apnea. 12.History of coronary artery disease, stent placement. 13.Chronic obstructive pulmonary disease, not in acute exacerbation. 14.Coumadin monitoring. 15.Mild thrombocytopenia. 16.History of PEG tube placement/removal in May. 17.EGD in May by Dr. Anglin. 18.History of anxiety, depression, posttraumatic stress disorder. 19.History of continued ongoing nicotine dependence. 20.History of EtOH, heavy previously. RECOMMENDATIONS AND DISCUSSION: In this 69-year-old gentleman who presented with multiple complex medical issues, the patient had abnormal swallow evaluation, but however the patient is adamant in not having a PEG tube at this time as described above. At this time, I discussed the case with the neurologist, Dr. Shepard and [facility], Dr. Anglin. The possibility of malignancy is extremely low, but however, at this time I recommend outpatient followup with ENT to complete the workup. Other than that, we will also arrange outpatient neurology workup and await the myasthenia test and other test which has been ordered. Other than that, I would also recommend speech pathology consultation and possibly try with electrical stimulation, which the patient reports that has helped him previously. We will continue to monitor. Repeat labs. Monitor creatinine closely. Prognosis once again is extremely guarded because of multiple complex medical issues. Further recommendations to follow. MMODL / IJN: [id number] /
[2019-08-24] MEDS: ATORVASTATIN 40 MG TAB PO SCH (20:28)
[2019-08-25] MEDS: MAGNESIUM OXIDE 400 MG TAB PO SCH (07:45)
[2019-08-25] MEDS: ALLOPURINOL 100 MG TAB PO SCH (07:45)
[2019-08-25] MEDS: ASPIRIN 81 MG PO SCH (07:45)
[2019-08-25] MEDS: METOPROLOL SUCCINATE (ER) 100 MG TAB.ER.24H PO SCH (07:45)
[2019-08-25] MEDS: SERTRALINE 100 MG TAB PO SCH (07:45)
[2019-08-25] MEDS: NICOTINE 14MG/24HR PATCH TRANSDERM SCH (07:46)
[2019-08-25] MEDS: PANTOPRAZOLE 40 MG TABLET PO SCH (07:46)
[2019-08-25] MEDS: GABAPENTIN 300 MG CAP PO SCH (07:46)
[2019-08-25] MEDS: PIPERACILLIN-TAZOBACTAM 3.375 GM in SODIUM CHLORIDE 0.9% 100 ML IVPB SCH (07:46)
[2019-08-25 07:49] LABS: Prothrombin Time 19.5 sec (9.0-12.0)
[2019-08-25 10:15] VITALS: BMI 25.8
[2019-08-25 12:26] VITALS: BP 120/77; PULSE 70; RESP 17; TEMP 97.5
[2019-08-25] MEDS: SODIUM CHLORIDE 0.9% 1,000 ML IV SCH (12:40)
--- NOTE | 2019-08-25 23:46 | PN ---
PROGRESS NOTE DATE OF DICTATION: 08/25/2019 Patient is a 69-year-old pleasant white male admitted to the hospital with oropharyngeal dysphagia and was noted to have aspiration on modified barium swallow. He refused to have a PEG tube placement. Neurology has evaluated the patient. He is on modified diet and tolerating well. He denies any coughing or choking spells. He reports no nausea, vomiting, or abdominal pain. PHYSICAL EXAMINATION: Appears comfortable, in no apparent distress. Vitals signs are stable. Blood pressure is 112/77, pulse rate 70, temperature 97.5. HEENT: Examination unremarkable. Conjunctivae pink. Sclerae anicteric. Oral cavity, no lesions. NECK: No JVD or lymph node enlargement. CHEST: Clear to auscultation. HEART: Regular rate and rhythm. ABDOMEN: Soft. Bowel sounds are positive. No organomegaly. EXTREMITIES: No pedal edema. NEUROLOGIC: Alert and oriented x3. No focal deficits. LABS: Labs from today: PT/INR is 2.0. IMPRESSION: 1. Oropharyngeal dysphagia secondary to possible neuromuscular etiology. The patient was investigated extensively at [facility] in January of last year. He had a PEG tube placed which was subsequently removed in May after his swallowing had significantly improved. However, now presents to the hospital with oropharyngeal dysphagia once again, improving on a thick pureed diet. 2. History of atrial fibrillation on Coumadin. 3. Mild aspiration pneumonia on antibiotics. RECOMMENDATIONS: 1. Recommend speech therapy evaluation and swallow rehabilitation on outpatient basis. 2. Continue with modified diet. 3. The patient has an understanding that he fails rehabilitation program he may have to have an EGD with PEG tube placement in the near future. 4. He was advised to follow up in the office in a month from now. Thank you for this consultation. MMODL / IJN: [id number] /
--- NOTE | 2019-08-26 04:43 | DS ---
DISCHARGE SUMMARY DATE OF SERVICE: 08/25/2019. FINAL DIAGNOSES: 1. Dysphagia possibly secondary to neurological illness, malignancy unlikely per Gastroenterology. 2. Weight loss and moderate protein calorie malnutrition because of the dysphagia. 3. Acute kidney injury with possible prerenal acute renal failure and dehydration, present on admission. 4. Possible dementia, underlying. 5. Congestive heart failure with status post AICD and as well as chronic systolic dysfunction possibly. 6. Chronic atrial ablation on Coumadin. 7. History of cerebrovascular accident, transient ischemic attack. 8. Hypertension. 9. Hyperlipidemia. 10.History of sleep apnea. 11.History of coronary artery disease, stent placement. 12.History of chronic obstructive pulmonary disease, not in acute exacerbation. 13.Coumadin monitoring. 14.Mild thrombocytopenia. 15.History of PEG tube placement and removal in May. 16.EGD in May by Dr. Anglin. 17.History of anxiety, depression, posttraumatic stress disorder. 18.History of continued ongoing nicotine dependence. 19.History of EtOH, heavy previously. DISCHARGE DISPOSITION: The patient will be discharged in a stable condition with guarded prognosis. HISTORY OF PRESENT ILLNESS: This 69-year-old gentleman with a past medical history of multiple medical problems admitted with dysphagia as well as possible aspiration pneumonia. Patient treated symptomatically. Patient was evaluated by Neurology and as well as Gastroenterology. Gastroenterology had recently had endoscopies. Neurology recommended outpatient followup with neurologist and continued monitoring. The patient refused PEG tube placement at this time. Neuro stimulation by speech pathology versus stimulation speech pathology suggested and the patient will be discharged in stable condition with guarded prognosis. The patient is extremely keen on going home. On exam, vitals stable. CARDIOVASCULAR: S1, S2 muffled. RESPIRATORY: A few scattered rhonchi. ABDOMEN: Soft. NERVOUS SYSTEM: Diffusely weak. DISCHARGE ADVICE: 1. Diet is cardiac. 2. Activity limited until followup. 3. Follow up with [facility] in 2 to 3 days. 4. Follow up with Neurology as recommended. MEDICATIONS ARE: 1. Ecotrin 81 mg p.o. daily. 2. Coumadin 2.5 mg 2.5 mg every day except on Saturday when it is 5 mg. 3. Crestor 40 mg p.o. daily. 4. Magnesium 1 tablet p.o. b.i.d. 5. Neurontin 600 mg p.o. b.i.d. 6. Prilosec 20 mg b.i.d. 7. Toprol-XL 100 mg p.o. daily. 8. Acetaminophen codeine 1 tablet p.o. t.i.d. p.r.n. 9. Zoloft 100 mg p.o. b.i.d. 10.Zyloprim 100 mg p.o. b.i.d. 11.Augmentin 1 p.o. b.i.d. for 5 days. Follow up with Dr. Sandhu as recommended. MMODL / IJN: [id number] /
[2019-08-26 15:50] LABS: Albumin 2.99 g/dL (3.80-4.90); Gamma Globulin 1.01 g/dL (0.70-1.50)
== END 2019-08-25 15:01 | disposition home or self-care (01) | DRG 178 ==
LOC: EC 13:10 → 5NMEDONC 16:24 → OBSVTOIN 08-22 10:26
PROVIDERS: ADMIT Internal Medicine; ATTEND Internal Medicine
DX: J69.0 Pneumonitis due to inhalation of food and vomit (principal); E44.0 Moderate protein-calorie malnutrition; I48.20 Chronic atrial fibrillation, unspecified; I50.22 Chronic systolic (congestive) heart failure; N17.9 Acute kidney failure, unspecified; R13.19 Other dysphagia; D64.9 Anemia, unspecified; D69.6 Thrombocytopenia, unspecified; Z68.25 Body mass index [BMI] 25.0-25.9, adult; Z11.59 Encounter for screening for other viral diseases; E78.5 Hyperlipidemia, unspecified; E86.0 Dehydration; F17.210 Nicotine dependence, cigarettes, uncomplicated; F10.11 Alcohol abuse, in remission; F32.9 Major depressive disorder, single episode, unspecified; F43.10 Post-traumatic stress disorder, unspecified; G25.2 Other specified forms of tremor; G47.33 Obstructive sleep apnea (adult) (pediatric); Z99.89 Dependence on other enabling machines and devices; H91.90 Unspecified hearing loss, unspecified ear; I11.0 Hypertensive heart disease with heart failure; I25.10 Atherosclerotic heart disease of native coronary artery without angina pectoris; J44.9 Chronic obstructive pulmonary disease, unspecified; R13.12 Dysphagia, oropharyngeal phase; Z79.01 Long term (current) use of anticoagulants; Z79.82 Long term (current) use of aspirin; Z79.899 Other long term (current) drug therapy; Z86.73 Personal history of transient ischemic attack (TIA), and cerebral infarction without residual deficits; Z95.5 Presence of coronary angioplasty implant and graft; Z95.810 Presence of automatic (implantable) cardiac defibrillator; R63.4 Abnormal weight loss; Z88.1 Allergy status to other antibiotic agents; Z88.2 Allergy status to sulfonamides; Z83.2 Family history of diseases of the blood and blood-forming organs and certain disorders involving the immune mechanism
CPT/HCPCS: 36415; 70450; 71045; 71260; 74160; 74230; 80048; 80053; 81001; 82550; 83519; 83605; 83690; 83735; 84165; 84439; 84443; 84480; 84484; 85025; 85610; 85730; 87635; 93005; 96360; 99285

== ENCOUNTER 2019-08-28 06:11 | Inpatient (IN) | payer OTHER, MEDICARE ==
[2019-08-28] MEDS ORDERED: ACETAMINOPHEN TAB 325 MG TAB PO STA (06:23)
[2019-08-28] MEDS ORDERED: SODIUM CHLORIDE 0.9% 500 ML 500 ML IV STA (06:23)
[2019-08-28] MEDS ORDERED: ACETAMINOPHEN TAB 500 MG TAB PO STA (06:33)
--- NOTE | 2019-08-28 06:35 | ED ---
General Adult HPI - General Source: patient, EMS, RN notes reviewed, old records reviewed Mode of arrival: EMS Limitations: altered mental status <Tolu Davila - Last Filed: 08/28/19 07:13> <Joel Menchaca - Last Filed: 08/28/19 07:17> - General Chief complaint: Fever Stated complaint: Shaking Time Seen by Provider: 08/28/19 06:13 - History of Present Illness Initial comments: This a 69-year-old male presents emergency department via EMS from home for altered mental status, fever, shaking episode. Patient was recently discharged 2 days ago for dysphagia, weight loss. Patient continues to have some to eating he is supposed to be on a. Diet but EMS reports when he stated he was eating too fast and have aspirated. Patient found to have fever has no specific complaints. Medical records were reviewed which showed possibility of pneumonia and CT. Patient denies dysuria, hematuria, nausea, vomiting, diarrhea constipation no abdominal complaints. Patient has confusion unsure if this is baseline or not. Patient provides very little information at this time. (Tolu Davila) - Related Data Home Medications Medication Instructions Recorded Confirmed Allopurinol [Zyloprim] 100 mg PO BID 09/02/17 08/20/19 Aspirin [Adult Low Dose Aspirin EC] 81 mg PO DAILY 09/02/17 08/20/19 Gabapentin [Neurontin] 600 mg PO BID 09/02/17 08/20/19 Omeprazole [PriLOSEC] 20 mg PO BID 09/02/17 08/20/19 Sertraline HCl [Zoloft] 100 mg PO BID 09/02/17 08/20/19 Acetaminophen-Codeine 300-30mg 1 tab PO TID PRN 04/01/19 08/20/19 [Tylenol w/codeine #3] Metoprolol Succinate [Toprol XL] 100 mg PO DAILY 04/01/19 08/20/19 Magnesium 420mg 1 tab PO BID 08/20/19 08/20/19 Rosuvastatin Calcium [Crestor] 20 mg PO HS 08/20/19 08/20/19 Warfarin [Coumadin] 2.5 mg PO SUTUWETHFRSA 08/20/19 08/20/19 Warfarin [Coumadin] 5 mg PO MO 08/20/19 08/20/19 Previous Rx's Medication Instructions Recorded Amoxic-Pot Clav 875-125Mg 1 tab PO Q12HR 5 Days #10 tab 08/25/19 [Augmentin 875-125] Allergies Allergy/AdvReac Type Severity Reaction Status Date / Time fluvastatin AdvReac Nausea & Verified 08/28/19 06:17 Vomiting metolazone [From Zaroxolyn] AdvReac Nausea & Verified 08/28/19 06:17 Vomiting simvastatin AdvReac Nausea & Verified 08/28/19 06:17 Vomiting sulfamethoxazole AdvReac Nausea & Verified 08/28/19 06:17 [From Bactrim] Vomiting trimethoprim [From Bactrim] AdvReac Nausea & Verified 08/28/19 06:17 Vomiting Review of Systems ROS Other: All systems not noted in ROS Statement are negative. <Tolu Davila - Last Filed: 08/28/19 07:13> ROS Other: All systems not noted in ROS Statement are negative. <Joel Menchaca - Last Filed: 08/28/19 07:17> ROS Statement: Those systems with pertinent positive or pertinent negative responses have been documented in the HPI. 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 sided weakness,cataracts, bruises easily due to coumadin,does not wear cpap,neuropathy moe. feet History of Any Multi-Drug Resistant Organisms: None Reported Past Surgical History: AICD, Heart Catheterization With Stent Additional Past Surgical History / Comment(s): AICD/Pacemaker, PEG tube placed in [address] Anglin in 2019 Past Anesthesia/Blood Transfusion Reactions: No Reported Reaction Date of Last Stent Placement:: unk Type of Cardiac Device: AICD Device Placement Date:: 2009 Past Psychological History: Anxiety, Depression, PTSD Smoking Status: Current every day smoker Past Alcohol Use History: Daily, Heavy Past Drug Use History: None Reported - Past Family History Brother(s) Family Medical History: Deep Vein Thrombosis (DVT) <Tolu Davila - Last Filed: 08/28/19 07:13> General Exam Limitations: altered mental status General appearance: alert, in no apparent distress Head exam: Present: atraumatic, normocephalic, normal inspection Eye exam: Present: normal appearance, PERRL, EOMI. Absent: scleral icterus, conjunctival injection, periorbital swelling ENT exam: Present: normal exam, normal oropharynx, mucous membranes moist Neck exam: Present: normal inspection, full ROM. Absent: tenderness, meningismu s, lymphadenopathy Respiratory exam: Present: decreased breath sounds. Absent: normal lung sounds bilaterally, respiratory distress, wheezes, rales, rhonchi, stridor Cardiovascular Exam: Present: regular rate, normal rhythm, normal heart sounds. Absent: systolic murmur, diastolic murmur, rubs, gallop, clicks GI/Abdominal exam: Present: soft, normal bowel sounds. Absent: distended, tenderness, guarding, rebound, rigid Neurological exam: Present: alert. Absent: oriented X3 Skin exam: Present: warm, dry, intact, normal color. Absent: rash <Tolu Davila - Last Filed: 08/28/19 07:13> Course <Joel Mnechaca - Last Filed: 08/28/19 07:17> Vital Signs 08/28/19 08/28/19 08/28/19 06:13 06:17 06:30 Temperature 100.1 F H 103.1 F H 103.1 F H Pulse Rate 75 70 70 Respiratory 18 18 18 Rate Blood Pressure 133/73 119/73 109/75 O2 Sat by Pulse 96 98 96 Oximetry 08/28/19 08/28/19 06:45 07:00 Temperature 103.0 F H 103 F H Pulse Rate 68 70 Respiratory 20 16 Rate Blood Pressure 118/66 116/71 O2 Sat by Pulse 95 96 Oximetry - Reevaluation(s) Reevaluation #1: 08/28/19 07:16 PA supervision: I personally evaluate this patient patient did present with complaints of shakes and fever some altered mental status. He was just recently discharged. He was sent back in from long-term for evaluation. He is found have a right lower lobe infiltrate. I did discuss the case with Dr. Parra. Patient will be admitted for outpatient treatment failure right lower lobe pneumonia. This is likely aspiration. He does have decreased breath sounds especially the right scattered rhonchi. (Joel Menchaca) EKG Findings - EKG Comments: EKG Findings:: EKG upon his 6:17 ventricular paced rhythm at 71 WI 144 QRS 4 28/465 <PopTolu topete - Last Filed: 08/28/19 07:13> Medical Decision Making - Lab Data Result diagrams: 08/28/19 06:21 08/28/19 06:21 <PopTolu topete - Last Filed: 08/28/19 07:13> - Lab Data Result diagrams: 08/28/19 06:21 08/28/19 06:21 <Joel Menchaca - Last Filed: 08/28/19 07:17> - Medical Decision Making 69-year-old male presents emergency Department with complaints of altered mental status, fever. Patient's found to have right lower lobe pneumonia. Is concerning as he had recent hospitalization and aspiration. Patient was started on Zosyn, clindamycin. Patient will be admitted for further antibiotics, management. Patient has mild increase in his creatinine from his normal baseline. (Tolu Davila) - Lab Data Lab Results 08/28/19 08/28/19 08/28/19 Range/Units 06:21 06:21 06:21 WBC 9.0 (3.8-10.6) k/uL RBC 4.15 L (4.30-5.90) m/uL Hgb 12.7 L (13.0-17.5) gm/dL Hct 40.2 (39.0-53.0) % MCV 96.9 (80.0-100.0) fL MCH 30.7 (25.0-35.0) pg MCHC 31.7 (31.0-37.0) g/dL RDW 16.2 H (11.5-15.5) % Plt Count 146 L (150-450) k/uL Neutrophils % 83 % Lymphocytes % 11 % Monocytes % 4 % Eosinophils % 1 % Basophils % 0 % Neutrophils # 7.5 (1.3-7.7) k/uL Lymphocytes # 1.0 (1.0-4.8) k/uL Monocytes # 0.4 (0-1.0) k/uL Eosinophils # 0.1 (0-0.7) k/uL Basophils # 0.0 (0-0.2) k/uL Hypochromasia Moderate Anisocytosis Slight Macrocytosis Slight PT 17.9 H (9.0-12.0) sec INR 1.8 H (<1.2) APTT 29.6 (22.0-30.0) sec Sodium 140 (137-145) mmol/L Potassium 5.1 (3.5-5.1) mmol/L Chloride 108 H (98-107) mmol/L Carbon Dioxide 24 (22-30) mmol/L Anion Gap 8 mmol/L BUN 23 H (9-20) mg/dL Creatinine 1.46 H (0.66-1.25) mg/dL Est GFR (CKD-EPI)AfAm 55 (>60 ml/min/1.73 sqM) Est GFR (CKD-EPI)NonAf 48 (>60 ml/min/1.73 sqM) Glucose 88 (74-99) mg/dL Plasma Lactic Acid Marlon (0.7-2.0) mmol/L Calcium 8.7 (8.4-10.2) mg/dL Total Bilirubin 0.5 (0.2-1.3) mg/dL AST 30 (17-59) U/L ALT 17 (4-49) U/L Alkaline Phosphatase 108 (38-126) U/L Total Protein 6.5 (6.3-8.2) g/dL Albumin 3.4 L (3.5-5.0) g/dL Lipase 105 (23-300) U/L 08/28/19 Range/Units 06:21 WBC (3.8-10.6) k/uL RBC (4.30-5.90) m/uL Hgb (13.0-17.5) gm/dL Hct (39.0-53.0) % MCV (80.0-100.0) fL MCH (25.0-35.0) pg MCHC (31.0-37.0) g/dL RDW (11.5-15.5) % Plt Count (150-450) k/uL Neutrophils % % Lymphocytes % % Monocytes % % Eosinophils % % Basophils % % Neutrophils # (1.3-7.7) k/uL Lymphocytes # (1.0-4.8) k/uL Monocytes # (0-1.0) k/uL Eosinophils # (0-0.7) k/uL Basophils # (0-0.2) k/uL Hypochromasia Anisocytosis Macrocytosis PT (9.0-12.0) sec INR (<1.2) APTT (22.0-30.0) sec Sodium (137-145) mmol/L Potassium (3.5-5.1) mmol/L Chloride (98-107) mmol/L Carbon Dioxide (22-30) mmol/L Anion Gap mmol/L BUN (9-20) mg/dL Creatinine (0.66-1.25) mg/dL Est GFR (CKD-EPI)AfAm (>60 ml/min/1.73 sqM) Est GFR (CKD-EPI)NonAf (>60 ml/min/1.73 sqM) Glucose (74-99) mg/dL Plasma Lactic Acid Marlon 2.8 H* (0.7-2.0) mmol/L Calcium (8.4-10.2) mg/dL Total Bilirubin (0.2-1.3) mg/dL AST (17-59) U/L ALT (4-49) U/L Alkaline Phosphatase (38-126) U/L Total Protein (6.3-8.2) g/dL Albumin (3.5-5.0) g/dL Lipase (23-300) U/L Disposition <Tolu Davila - Last Filed: 08/28/19 07:13> <Joel Menchaca - Last Filed: 08/28/19 07:17> Clinical Impression: Altered mental status, Aspiration pneumonia, Dysphagia Disposition: [facility]MITT[facility] Condition: Serious Referrals: [facility],Clinic [Primary Care Provider] - 1-2 days
[2019-08-28 06:52] LABS: Anisocytosis Slight; Basophils % (A) 0 %; Eosinophils # (A) 0.1 k/uL (0-0.7); Eosinophils % (A) 1 %; HCT 40.2 % (39.0-53.0); HGB 12.7 gm/dL (13.0-17.5); Hypochromasia Moderate; Lymphocytes % (A) 11 %; MCH 30.7 pg (25.0-35.0); MCHC 31.7 g/dL (31.0-37.0); MCV 96.9 fL (80.0-100.0); Macrocytosis Slight; Mean Platelet Volume 9.5; Monocytes # (A) 0.4 k/uL (0-1.0); Monocytes % (A) 4 %; Neutrophils # (A) 7.5 k/uL (1.3-7.7); Neutrophils % (A) 83 %; Platelet Count 146 k/uL (150-450); RBC 4.15 m/uL (4.30-5.90); RDW 16.2 % (11.5-15.5)
[2019-08-28 06:53] LABS: INR 1.8 (<1.2); Partial Thromboplastin Time 29.6 sec (22.0-30.0); Prothrombin Time 17.9 sec (9.0-12.0)
[2019-08-28 06:54] LABS: Albumin 3.4 g/dL (3.5-5.0); Calcium 8.7 mg/dL (8.4-10.2); Potassium 5.1 mmol/L (3.5-5.1); Total Bilirubin 0.5 mg/dL (0.2-1.3); Total Protein 6.5 g/dL (6.3-8.2)
[2019-08-28] MEDS ORDERED: CLINDAMYCIN 600 MG in DEXTROSE 5% IN WATER 50 ML IVPB STA ×2 (06:54)
[2019-08-28] MEDS ORDERED: PIPERACILLIN-TAZOBACTAM 3.375 GM in SODIUM CHLORIDE 0.9% 100 ML IVPB STA (06:54)
--- NOTE | 2019-08-28 06:57 | XR ---
EXAMINATION TYPE: XR chest 2V DATE OF EXAM: 08/28/2019 COMPARISON: Prior chest x-ray [address] 7 days ago. HISTORY: Fever and cough. TECHNIQUE: Frontal and lateral views of the chest are obtained. FINDINGS: There is redemonstration of cardiomegaly with multi the pacemaker/AICD and atherosclerotic thoracic aorta. The osseous structures remain intact. Slightly elevated left hemidiaphragm and mil d underlying emphysematous change with new right infrahilar airspace opacity localized to the lower l obe on lateral view IMPRESSION: New right lower lobe acute pneumonic infiltrate.
[2019-08-28] MEDS ORDERED: IPRATROPIUM-ALBUTEROL 3 ML NEB INHALATION PRN (07:07)
[2019-08-28] MEDS ORDERED: PNEUMONIA PROTOCOL UTILIZED 1 EACH MISC PO PRN (07:07)
[2019-08-28 07:29] LABS: Appearance,Urine Clear (Clear); Bilirubin,Urine Negative (Negative); Blood,Urine Negative (Negative); Color,Urine Yellow; Glucose,Urine (UA) Negative (Negative); Ketones,Urine Negative (Negative); Leukocyte Esterase,Urine Negative (Negative); Mucus,Urine Rare /hpf; Nitrite,Urine Negative (Negative); PH, Urine 5.5 (5.0-8.0); Protein,Urine 1+ (Negative); RBC,Urine <1 /hpf (0-5); Specific Gravity,Urine 1.012 (1.001-1.035); Squamous Epithelial Cell,Urine <1 /hpf (0-4); Urobilinogen,Urine <2.0 mg/dL (<2.0); WBC,Urine <1 /hpf (0-5)
[2019-08-28] MEDS ORDERED: Acetaminophen-Codeine 300-30mg TAB PO PRN (13:59)
--- NOTE | 2019-08-28 14:13 | P.HPIM ---
History of Present Illness Patient is a pleasant 69-year-old gentleman came in with the complaints of fever has high-grade fever and shaking episode scored 19 testing was ordered although patient doesn't have any leukopenia will order an LDH. Patient when questioned was comparing of cough with yellowish sputum production. Chest x-ray showing right lower lobe infiltrate. Urinalysis is within normal limits patient was started on antibiotics clindamycin and Zosyn for possible aspiration pneumonia patient is on Augmentin at home. Patient was recently discharged after he was treated for dysphagia patient at that time refused PEG tube placement. During the last hospitalization patient the was extensively evaluated by a gastroneurology neurology for his dysphagia patient was a evaluated at [facility] and does have neurological disorder which was undiagnosed and does have oropharyngeal dysphagia because of that. Patient declined PEG tube p lacement. Patient had a PEG tube from [facility] which she insisted that to be removed that was subsequently removed came in with aspiration pneumonia during his last hospitalization and agreed to get the PEG tube in the same thing happens again at that time patient was discharged on modified diet and speech therapy follow-up. Patient is septic again now with the aspiration pneumonia and will require a PEG tube will obtain consultation from gastroneurology and speech therapy. Review of Systems REVIEW OF SYSTEMS: CONSTITUTIONAL: No fever, no malaise, no fatigue. HEENT: No recent visual problems or hearing problems. Denied any sore throat. CARDIOVASCULAR: No chest pain, orthopnea, PND, no palpitations, no syncope. PULMONARY: As mentioned in HPI GASTROINTESTINAL: No diarrhea, no nausea, no vomiting, no abdominal pain. NEUROLOGICAL: No headaches, no weakness, no numbness. HEMATOLOGICAL: Denies any bleeding or petechiae. GENITOURINARY: Denies any burning micturition, frequency, or urgency. MUSCULOSKELETAL/RHEUMATOLOGICAL: Denies any joint pain, swelling, or any muscle pain. ENDOCRINE: Denies any polyuria or polydipsia. The rest of the 14-point review of systems is negative. 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 sided weakness,cataracts, bruises easily due to coumadin,does not wear cpap,neuropathy moe. feet History of Any Multi-Drug Resistant Organisms: None Reported Past Surgical History: AICD, Heart Catheterization With Stent Additional Past Surgical History / Comment(s): AICD/Pacemaker, PEG tube placed in [address] Anglin in 2019 Past Anesthesia/Blood Transfusion Reactions: No Reported Reaction Date of Last Stent Placement:: unk Type of Cardiac Device: AICD Device Placement Date:: 2009 Past Psychological History: Anxiety, Depression, PTSD Smoking Status: Current every day smoker Past Alcohol Use History: Daily, Heavy Past Drug Use History: None Reported - Past Family History Brother(s) Family Medical History: Deep Vein Thrombosis (DVT) Medications and Allergies Home Medications Medication Instructions Recorded Confirmed Type Allopurinol [Zyloprim] 100 mg PO BID 09/02/17 08/28/19 History Aspirin [Adult Low Dose Aspirin EC] 81 mg PO DAILY 09/02/17 08/28/19 History Gabapentin [Neurontin] 600 mg PO BID 09/02/17 08/28/19 History Omeprazole [PriLOSEC] 20 mg PO BID 09/02/17 08/28/19 History Sertraline HCl [Zoloft] 100 mg PO BID 09/02/17 08/28/19 History Acetaminophen-Codeine 300-30mg 1 tab PO TID PRN 04/01/19 08/28/19 History [Tylenol w/codeine #3] Metoprolol Succinate [Toprol XL] 100 mg PO DAILY 04/01/19 08/28/19 History Magnesium 420mg 1 tab PO BID 08/20/19 08/28/19 History Rosuvastatin Calcium [Crestor] 20 mg PO HS 08/20/19 08/28/19 History Warfarin [Coumadin] 2.5 mg PO SUTUWETHFRSA 08/20/19 08/28/19 History Warfarin [Coumadin] 5 mg PO MO 08/20/19 08/28/19 History Amoxic-Pot Clav 875-125Mg 1 tab PO Q12HR 5 Days #10 tab 08/25/19 08/28/19 Rx [Augmentin 875-125] Allergies Allergy/AdvReac Type Severity Reaction Status Date / Time fluvastatin AdvReac Nausea & Verified 08/28/19 13:55 Vomiting metolazone [From Zaroxolyn] AdvReac Nausea & Verified 08/28/19 13:55 Vomiting simvastatin AdvReac Nausea & Verified 08/28/19 13:55 Vomiting sulfamethoxazole AdvReac Nausea & Verified 08/28/19 13:55 [From Bactrim] Vomiting trimethoprim [From Bactrim] AdvReac Nausea & Verified 08/28/19 13:55 Vomiting Physical Exam Vitals: Vital Signs Temp Pulse Resp BP Pulse Ox 08/28/19 10:07 99.0 F 86 16 103/55 95 08/28/19 08:21 70 16 107/64 94 L 08/28/19 07:35 69 16 115/71 96 08/28/19 07:00 103 F H 70 16 116/71 96 08/28/19 06:45 103.0 F H 68 20 118/66 95 08/28/19 06:30 103.1 F H 70 18 109/75 96 08/28/19 06:17 103.1 F H 70 18 119/73 98 08/28/19 06:13 100.1 F H 75 18 133/73 96 Intake and Output 08/27/19 08/28/19 08/28/19 22:59 06:59 14:59 Other: Weight 91.3 kg PHYSICAL EXAMINATION: GENERAL: The patient is alert and oriented x3, not in any acute distress. Well developed, well nourished. HEENT: Pupils are round and equally reacting to light. EOMI. No scleral icterus. No conjunctival pallor. Normocephalic, atraumatic. No pharyngeal erythema. No thyromegaly. CARDIOVASCULAR: S1 and S2 present. No murmurs, rubs, or gallops. PULMONARY: Rhonchi and right lower lung bases crackles and with normal bases ABDOMEN: Soft, nontender, nondistended, normoactive bowel sounds. No palpable organomegaly. MUSCULOSKELETAL: No joint swelling or deformity. EXTREMITIES: No cyanosis, clubbing, or pedal edema. NEUROLOGICAL: Gross neurological examination did not reveal any focal deficits. SKIN: No rashes. Results CBC & Chem 7: 08/28/19 06:21 08/28/19 06:21 Labs: Abnormal Lab Results - Last 24 Hours (Table) 08/28/19 08/28/19 08/28/19 Range/Units 06:21 06:21 06:21 RBC 4.15 L (4.30-5.90) m/uL Hgb 12.7 L (13.0-17.5) gm/dL RDW 16.2 H (11.5-15.5) % Plt Count 146 L (150-450) k/uL PT 17.9 H (9.0-12.0) sec INR 1.8 H (<1.2) Chloride 108 H (98-107) mmol/L BUN 23 H (9-20) mg/dL Creatinine 1.46 H (0.66-1.25) mg/dL Plasma Lactic Acid Marlon (0.7-2.0) mmol/L Albumin 3.4 L (3.5-5.0) g/dL Urine Protein (Negative) Urine Mucus (None) /hpf 08/28/19 08/28/19 Range/Units 06:21 07:07 RBC (4.30-5.90) m/uL Hgb (13.0-17.5) gm/dL RDW (11.5-15.5) % Plt Count (150-450) k/uL PT (9.0-12.0) sec INR (<1.2) Chloride (98-107) mmol/L BUN (9-20) mg/dL Creatinine (0.66-1.25) mg/dL Plasma Lactic Acid Marlon 2.8 H* (0.7-2.0) mmol/L Albumin (3.5-5.0) g/dL Urine Protein 1+ H (Negative) Urine Mucus Rare H (None) /hpf Assessment and Plan Plan: -Aspiration pneumonia recurrent: Sepsis secondary to aspiration pneumonia patient will be can you Zosyn and clindamycin consulted gastroneurology for possible PEG tube placement and patient will be continued on IV fluids -Oropharyngeal dysphagia due to undiagnosed neurological condition, had recurrent aspirations in the past will require PEG tube placement again. --Atrial fibrillation, presently rate controlled chronic A. 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
[2019-08-28] MEDS: SODIUM CHLORIDE 0.9% 1,000 ML IV SCH (17:16)
[2019-08-28] MEDS: PIPERACILLIN-TAZOBACTAM 3.375 GM in SODIUM CHLORIDE 0.9% 100 ML IVPB SCH (17:17)
[2019-08-28] MEDS: PANTOPRAZOLE 40 MG TABLET PO SCH (17:46)
[2019-08-28] MEDS ORDERED: WARFARIN 2.5 MG TAB PO SCH (18:00)
[2019-08-28] MEDS: ATORVASTATIN 40 MG TAB PO SCH (21:22)
[2019-08-28] MEDS: SERTRALINE 100 MG TAB PO SCH (21:22)
[2019-08-28] MEDS: MAGNESIUM OXIDE 400 MG TAB PO SCH (21:22)
[2019-08-28] MEDS: GABAPENTIN 300 MG CAP PO SCH (21:22)
[2019-08-28] MEDS: CLINDAMYCIN 600 MG in DEXTROSE 5% IN WATER 50 ML IVPB SCH ×2 (21:22)
[2019-08-28] MEDS: ALLOPURINOL 100 MG TAB PO SCH (21:22)
[2019-08-29] MEDS: PIPERACILLIN-TAZOBACTAM 3.375 GM in SODIUM CHLORIDE 0.9% 100 ML IVPB SCH ×3 (00:38→20:11)
[2019-08-29] MEDS: CLINDAMYCIN 600 MG in DEXTROSE 5% IN WATER 50 ML IVPB SCH ×6 (05:05→15:50)
[2019-08-29] MEDS: SODIUM CHLORIDE 0.9% 1,000 ML IV SCH ×2 (05:06→17:56)
--- NOTE | 2019-08-29 07:04 | XR ---
EXAMINATION TYPE: XR chest 1V DATE OF EXAM: 08/29/2019 CLINICAL HISTORY: Difficulty breathing progress study. TECHNIQUE: Single AP portable upright view of the chest is obtained. COMPARISON: Chest x-ray from one day earlier. CT chest 8 days ago. FINDINGS: Persistent cardiomegaly with dual lead pacemaker/AICD. Background chronic emphysematous ch christina with improving right infrahilar opacity. Osseous structures are intact. IMPRESSION: Chronic emphysematous change and cardiomegaly with persistent but improving right lower l obe acute infiltrate and/or atelectasis.
[2019-08-29 08:09] LABS: INR 2.2 (<1.2); Prothrombin Time 21.1 sec (9.0-12.0)
[2019-08-29 08:14] LABS: Calcium 8.5 mg/dL (8.4-10.2); Potassium 4.5 mmol/L (3.5-5.1)
[2019-08-29] MEDS: ALLOPURINOL 100 MG TAB PO SCH ×2 (08:42→20:11)
[2019-08-29] MEDS: PANTOPRAZOLE 40 MG TABLET PO SCH ×2 (08:42→17:05)
[2019-08-29] MEDS: ASPIRIN 81 MG PO SCH (08:43)
[2019-08-29] MEDS: SERTRALINE 100 MG TAB PO SCH ×2 (08:43→20:11)
[2019-08-29] MEDS: GABAPENTIN 300 MG CAP PO SCH ×2 (08:43→20:11)
[2019-08-29] MEDS: METOPROLOL SUCCINATE (ER) 100 MG TAB.ER.24H PO SCH (08:43)
[2019-08-29] MEDS: MAGNESIUM OXIDE 400 MG TAB PO SCH ×2 (08:43→20:11)
--- NOTE | 2019-08-29 13:08 | P.PN ---
Subjective 69-year-old with the unknown neurological condition leading to oropharyngeal dysphagia and aspiration admitted for recurrent aspiration patient declined PEG tube didn't his previous aspiration and had a lengthy discussion with the patient patient is agreeable for PICC line will discuss with the family members as well patient is alert oriented but still bit confused. Overall patient is doing significantly better today without any fevers. Constitutional: Denied any fatigue denied any fever. Cardio vascular: denied any chest pain, palpitations Gastrointestinal denied any nausea vomiting Pulmonary: Denied any shortness of breath cough Neurologic denied any new focal deficits All inpatient medications were reviewed and appropriate changes in these medications as dictated in the interval history and assessment and plan. Objective - Vital Signs Vital signs: Vital Signs Temp 97.9 F 08/29/19 07:00 Pulse 74 08/29/19 07:00 Resp 17 08/29/19 07:00 BP 113/72 08/29/19 07:00 Pulse Ox 98 08/29/19 07:00 Intake & Output 08/28/19 08/29/19 08/29/19 18:59 06:59 18:59 Intake Total 300 475 Balance 300 475 Weight 91.3 kg Intake: Intake, IV Titration 475 Amount Piperacillin-Tazobactam 3 100 .375 gm In Sodium Chloride 0.9% 100 ml @ 25 mls/hr IVPB Q8HR MO Rx# :[id number] Sodium Chloride 0.9% 1, 375 000 ml @ 75 mls/hr IV . [id number] MO Rx#:[id number] Oral 300 Other: # Voids 2 # Bowel Movements 0 - Exam PHYSICAL EXAMINATION: GENERAL: The patient is alert and oriented x3, not in any acute distress. Well developed, well nourished. HEENT: Pupils are round and equally reacting to light. EOMI. No scleral icterus. No conjunctival pallor. Normocephalic, atraumatic. No pharyngeal erythema. No thyromegaly. CARDIOVASCULAR: S1 and S2 present. No murmurs, rubs, or gallops. PULMONARY: Rhonchi and right lower lung bases crackles and with normal bases ABDOMEN: Soft, nontender, nondistended, normoactive bowel sounds. No palpable organomegaly. MUSCULOSKELETAL: No joint swelling or deformity. EXTREMITIES: No cyanosis, clubbing, or pedal edema. NEUROLOGICAL: Gross neurological examination did not reveal any focal deficits. SKIN: No rashes. - Labs CBC & Chem 7: 08/28/19 06:21 08/29/19 07:40 Labs: Abnormal Lab Results - Last 24 Hours (Table) 08/29/19 08/29/19 Range/Units 07:40 07:40 PT 21.1 H (9.0-12.0) sec INR 2.2 H (<1.2) BUN 23 H (9-20) mg/dL Creatinine 1.36 H (0.66-1.25) mg/dL Microbiology - Last 24 Hours (Table) 08/28/19 06:21 Blood Culture - Preliminary Blood No Growth after 24 hours Assessment and Plan Plan: -Aspiration pneumonia recurrent: Sepsis secondary to aspiration pneumonia patient will be can you Zosyn and clindamycin consulted gastroneurology for possible PEG tube placement and patient will be continued on IV fluids -Oropharyngeal dysphagia due to undiagnosed neurological condition, patient will require PEG tube placement since same thing was discussed the patient patient is now agreeable for that --Atrial fibrillation, presently rate controlled chronic A. 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
[2019-08-29] MEDS ORDERED: PHYTONADIONE 10 MG in SODIUM CHLORIDE 0.9% 50 ML IVPB STA (15:00)
[2019-08-29] MEDS: ATORVASTATIN 40 MG TAB PO SCH (20:11)
[2019-08-29 21:11] LABS: INR 1.6 (<1.2); Prothrombin Time 15.4 sec (9.0-12.0)
[2019-08-29] MEDS ORDERED: PHYTONADIONE 10 MG in SODIUM CHLORIDE 0.9% 50 ML IVPB ONE (23:00)
--- NOTE | 2019-08-30 00:44 | P.CONS ---
History of Present Illness - Reason for Consult Consult date: 08/29/19 Aspiration, PEG tube placement Requesting physician: Ricardo Parra - Chief Complaint Fevers - History of Present Illness 69-year-old male with multiple medical comorbidities including COPD, atrial fibrillation, prior CVA, hypertension, hyperlipidemia and oropharyngeal dysphagia presented to the hospital due to complaints of fever and shaking. Patient previously had admission for similar complaints earlier the month at which time the patient was found to have an aspiration pneumonia. The patient had a video fluoroscopic swallow evaluation at that time with evidence of aspiration but refused PEG tube placement. The patient had previously had PEG tube placement placed in 2018 and underwent speech therapy with improvement of his swallowing and had the PEG tube removed in 05/2019. Since that time the patient has again had problems swallowing. Currently he is on broad-spectrum antibiotic therapy and is agreeable to PEG tube placement. Review of Systems REVIEW OF SYSTEMS: CONSTITUTIONAL: Denies any fatigue or weight change but did report fevers and shortness of breath on presentation. CARDIOVASCULAR: Denies any chest pain, palpitations high or low blood pressures does have a history of atrial fibrillation. RESPIRATORY: Denies any hemoptysis but did have shortness of breath and cough on presentation. GENITOURINARY: No dysuria or hematuria. MUSCULOSKELETAL: No weakness reported. SKIN: Denies any new rashes or lesions, jaundice or pallor. PSYCHIATRIC: Denies any depression or anxiety. NEUROLOGY: Denies headache, denies any new focal deficits. EARS/NOSE/THROAT: No recent hearing change, congestion, nasal discharge or sore throat. EYES: No pain in eyes, discharge or change in vision. GASTROINTESTINAL: As per HPI. 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 sided weakness,cataracts, bruises easily due to coumadin,does not wear cpap,neuropathy moe. feet History of Any Multi-Drug Resistant Organisms: None Reported Past Surgical History: AICD, Heart Catheterization With Stent Additional Past Surgical History / Comment(s): AICD/Pacemaker, PEG tube placed in [address] Anglin in 2019 Past Anesthesia/Blood Transfusion Reactions: No Reported Reaction Date of Last Stent Placement:: unk Type of Cardiac Device: AICD Device Placement Date:: 2009 Past Psychological History: Anxiety, Depression, PTSD Smoking Status: Current every day smoker Past Alcohol Use History: Daily, Heavy Past Drug Use History: None Reported - Past Family History Brother(s) Family Medical History: Deep Vein Thrombosis (DVT) Medications and Allergies Home Medications Medication Instructions Recorded Confirmed Type Allopurinol [Zyloprim] 100 mg PO BID 09/02/17 08/28/19 History Aspirin [Adult Low Dose Aspirin EC] 81 mg PO DAILY 09/02/17 08/28/19 History Gabapentin [Neurontin] 600 mg PO BID 09/02/17 08/28/19 History Omeprazole [PriLOSEC] 20 mg PO BID 09/02/17 08/28/19 History Sertraline HCl [Zoloft] 100 mg PO BID 09/02/17 08/28/19 History Acetaminophen-Codeine 300-30mg 1 tab PO TID PRN 04/01/19 08/28/19 History [Tylenol w/codeine #3] Metoprolol Succinate [Toprol XL] 100 mg PO DAILY 04/01/19 08/28/19 History Magnesium 420mg 1 tab PO BID 08/20/19 08/28/19 History Rosuvastatin Calcium [Crestor] 20 mg PO HS 08/20/19 08/28/19 History Warfarin [Coumadin] 2.5 mg PO SUTUWETHFRSA 08/20/19 08/28/19 History Warfarin [Coumadin] 5 mg PO MO 08/20/19 08/28/19 History Amoxic-Pot Clav 875-125Mg 1 tab PO Q12HR 5 Days #10 tab 08/25/19 08/28/19 Rx [Augmentin 875-125] Allergies Allergy/AdvReac Type Severity Reaction Status Date / Time fluvastatin AdvReac Nausea & Verified 08/28/19 13:55 Vomiting metolazone [From Zaroxolyn] AdvReac Nausea & Verified 08/28/19 13:55 Vomiting simvastatin AdvReac Nausea & Verified 08/28/19 13:55 Vomiting sulfamethoxazole AdvReac Nausea & Verified 08/28/19 13:55 [From Bactrim] Vomiting trimethoprim [From Bactrim] AdvReac Nausea & Verified 08/28/19 13:55 Vomiting Physical Exam Vitals: Vital Signs Temp Pulse Resp BP Pulse Ox 08/29/19 07:00 97.9 F 74 17 113/72 98 08/29/19 02:00 97.7 F 67 16 104/68 98 08/28/19 20:00 98.2 F 72 16 104/66 99 08/28/19 17:30 98.2 F 75 16 112/73 92 L Intake and Output 08/28/19 08/29/19 08/29/19 22:59 06:59 14:59 Intake Total 300 475 Balance 300 475 Intake: Intake, IV Titration 475 Amount Piperacillin-Tazobactam 3 100 .375 gm In Sodium Chloride 0.9% 100 ml @ 25 mls/hr IVPB Q8HR MO Rx# :[id number] Sodium Chloride 0.9% 1, 375 000 ml @ 75 mls/hr IV . [id number] MO Rx#:[id number] Oral 300 Other: # Voids 2 2 # Bowel Movements 0 On physical examination, patient appears comfortable in no apparent distress. HEAD: Normocephalic, atraumatic. EYES: No scleral icterus. No conjunctival injection. MOUTH: No lesions, tongue midline. NECK: Trachea midline, no gross abnormalities. CHEST: Decreased air entry in all lung tse. HEART: Irregularly irregular. ABDOMEN: Soft, prior PEG tube site closed without signs of infection. Bowel sounds are positive. No organomegaly. No guarding or rigidity. EXTREMITIES: No pedal edema. SKIN: No rashes, no jaundice. NEUROLOGIC: Alert and oriented x3. Results CBC & Chem 7: 08/28/19 06:21 08/29/19 07:40 Labs: Abnormal Lab Results - Last 24 Hours (Table) 08/29/19 08/29/19 Range/Units 07:40 07:40 PT 21.1 H (9.0-12.0) sec INR 2.2 H (<1.2) BUN 23 H (9-20) mg/dL Creatinine 1.36 H (0.66-1.25) mg/dL Microbiology - Last 24 Hours (Table) 08/28/19 06:21 Blood Culture - Preliminary Blood No Growth after 24 hours Chest x-ray: report reviewed (Chronic emphysematous lung changes as well as right lower lobe infiltrate on chest x-ray.) Assessment and Plan (1) Dysphagia Narrative/Plan: 69-year-old male with oropharyngeal dysphagia requiring PEG tube placement in the past. Patient had PEG tube removed in 05/2019 after undergoing therapy with speech language pathology and having improvement and swallow. However he presented at the beginning of the month with aspiration pneumonia and presented back with fevers and cough on current presentation. On last hospitalization video swallow evaluations significant for aspiration but the patient refused PEG tube placement at that time. Currently he is agreeable to PEG tube placement. Current Visit: Yes Status: Acute Code(s): R13.10 - DYSPHAGIA, UNSPECIFIED SNOMED Code(s): 87943713 (2) Aspiration pneumonia Current Visit: Yes Status: Acute Code(s): J69.0 - PNEUMONITIS DUE TO INHALATION OF FOOD AND VOMIT SNOMED Code(s): 261145687 Plan: Supportive care Nothing by mouth Continue broad-spectrum antibiotic therapy Plan is for PEG tube placement tomorrow Vitamin K and fresh frozen plasma ordered for her supratherapeutic INR Will repeat INR tomorrow prior to procedure Further recommendations pending findings of EGD with PEG tube placement Thank you for allowing us to participate in the care of the patient we will continue to follow
[2019-08-30] MEDS: CLINDAMYCIN 600 MG in DEXTROSE 5% IN WATER 50 ML IVPB SCH ×8 (01:12→23:59)
[2019-08-30] MEDS: PIPERACILLIN-TAZOBACTAM 3.375 GM in SODIUM CHLORIDE 0.9% 100 ML IVPB SCH ×3 (04:03→15:51)
[2019-08-30 07:38] LABS: INR 1.2 (<1.2); Prothrombin Time 11.7 sec (9.0-12.0)
[2019-08-30 07:47] LABS: Calcium 8.8 mg/dL (8.4-10.2); Potassium 4.8 mmol/L (3.5-5.1)
[2019-08-30] MEDS: PANTOPRAZOLE 40 MG TABLET PO SCH (08:09)
[2019-08-30] MEDS: SODIUM CHLORIDE 0.9% 1,000 ML IV SCH ×2 (08:10→23:16)
[2019-08-30] MEDS: ASPIRIN 81 MG PO SCH (08:58)
[2019-08-30] MEDS: MAGNESIUM OXIDE 400 MG TAB PO SCH ×2 (08:58→22:51)
[2019-08-30] MEDS: ALLOPURINOL 100 MG TAB PO SCH ×2 (08:58→22:53)
[2019-08-30] MEDS: SERTRALINE 100 MG TAB PO SCH ×2 (08:58→22:51)
[2019-08-30] MEDS: METOPROLOL SUCCINATE (ER) 100 MG TAB.ER.24H PO SCH (08:58)
[2019-08-30] MEDS: GABAPENTIN 300 MG CAP PO SCH ×2 (08:58→22:51)
[2019-08-30] MEDS ORDERED: PROPOFOL 10 MG/ML 20 ML VIAL IV ONE (10:36)
[2019-08-30] MEDS ORDERED: LIDOCAINE 1% INJ 10MG/ML (20 ML MDV) ONE (10:36)
[2019-08-30] MEDS ORDERED: fentaNYL (PF) 50 MCG/ML 2 ML AMP ONE (10:36)
[2019-08-30] MEDS ORDERED: IV FLUID CONTINUATION 900 ML IV ONE (11:07)
--- NOTE | 2019-08-30 11:18 | P.PCN ---
Date of Procedure: 08/30/19 Description of Procedure: Brief history: 69-year-old male with multiple medical comorbidities including COPD, atrial fibrillation, prior CVA, hypertension, hyperlipidemia and oropharyngeal dysphagia presented to the hospital due to complaints of fever and shaking. Patient previously had admission for similar complaints earlier the month at which time the patient was found to have an aspiration pneumonia. The patient had a video fluoroscopic swallow evaluation at that time with evidence of aspiration but refused PEG tube placement. The patient had previously had PEG tube placement placed in 2018 and underwent speech therapy with improvement of his swallowing and had the PEG tube removed in 05/2019. Since that time the patient has again had problems swallowing. Currently he is on broad-spectrum antibiotic therapy and is agreeable to PEG tube placement. Procedure performed: EGD with PEG tube placement Preoperative diagnosis: Oropharyngeal dysphagia, aspiration pneumonia. IV sedation by anesthesia. Estimated blood loss: Minimal. Procedure: After informed consent was obtained with the patient as well as the family the patient was brought into the endoscopy unit. IV conscious sedation was administered by anesthesia under continuous monitoring. The Olympus GF 190 video endoscope was inserted into the mouth and esophagus intubated without any difficulty and was gradually advanced to the stomach and duodenum. The bulb and second part of the duodenum was visualized which appeared normal. The scope at this time was withdrawn to the stomach adequately insufflated with air. Adequate transillumination was achieved onto the anterior abdominal wall. At the site of adequate transillumination and maximal finger indentation, on the anterior abdominal wall, this area was sterilely prepped and draped. One percent Lidocaine was infiltrated into the skin and a small incision was made. Trocar and cannula was passed through the incision into the stomach cavity. The trocar was removed. The insertion wire was passed through the cannula into the stomach. Insertion wire was snared and then the insertion wire, snare and endoscope were withdrawn from the mouth. The insertion wire was then attached to a 20-[employer] PEG tube. The insertion wire was then pulled with the PEG tube through the incision site. PEG tube was pulled until the internal bolster was sitting snugly against the gastric mucosa which was confirmed with repeat EGD. On repeat EGD the esophagus was intubated without any difficulty and was advanced into the stomach. The internal bumper appeared to be in secure position. The visualized portions of the antrum body cardia and fundus of the stomach appeared normal. The esophagus was carefully examined as the scope was gradually being withdrawn which appeared normal. At this time external bumper was placed on the PEG tube closer to the anterior abdominal wall at 4 cm eden. The patient tolerated the procedure well. Impression: Successful [employer] PEG tube placement as described above. Recommendations: Findings of this examination were discussed with the patient's family. The patient will be started on tube feeds tomorrow. Post-PEG tube orders were written.
--- NOTE | 2019-08-30 12:28 | P.PN ---
Subjective 69-year-old with the unknown neurological condition leading to oropharyngeal dysphagia and aspiration admitted for recurrent aspiration patient declined PEG tube didn't his previous aspiration and had a lengthy discussion with the patient patient is agreeable for PICC line will discuss with the family members as well patient is alert oriented but still bit confused. Overall patient is doing significantly better today without any fevers. 08/30/2019 Patient had a PEG tube today patient is clinically doing well patient probably will be started on diet and his medications tonight probability of discharge tomorrow Constitutional: Denied any fatigue denied any fever. Cardio vascular: denied any chest pain, palpitations Gastrointestinal denied any nausea vomiting Pulmonary: Denied any shortness of breath cough Neurologic denied any new focal deficits All inpatient medications were reviewed and appropriate changes in these medications as dictated in the interval history and assessment and plan. Objective - Vital Signs Vital signs: Vital Signs Temp 97.7 F 08/30/19 07:00 Pulse 70 08/30/19 07:00 Resp 18 08/30/19 07:00 BP 122/80 08/30/19 07:00 Pulse Ox 96 08/30/19 07:00 Intake & Output 08/29/19 08/30/19 08/30/19 18:59 06:59 18:59 Intake Total 776 250 400 Output Total 700 700 Balance 76 -450 400 Intake: IV 400 Intake, IV Titration 475 Amount Piperacillin-Tazobactam 3 100 .375 gm In Sodium Chloride 0.9% 100 ml @ 25 mls/hr IVPB Q8HR MO Rx# :[id number] Sodium Chloride 0.9% 1, 375 000 ml @ 75 mls/hr IV . [id number] MO Rx#:[id number] Oral 250 Blood Product 301 Ffp 24 Cpd Unit 301 [id number] Output: Urine 700 700 Other: Voiding Method Toilet # Voids 1 1 # Bowel Movements 0 - Exam PHYSICAL EXAMINATION: GENERAL: The patient is alert and oriented x3, not in any acute distress. Well developed, well nourished. HEENT: Pupils are round and equally reacting to light. EOMI. No scleral icterus. No conjunctival pallor. Normocephalic, atraumatic. No pharyngeal erythema. No thyromegaly. CARDIOVASCULAR: S1 and S2 present. No murmurs, rubs, or gallops. PULMONARY: weight escalation no crackles no wheezing was appreciated ABDOMEN: Soft, nontender, nondistended, normoactive bowel sounds. No palpable organomegaly. MUSCULOSKELETAL: No joint swelling or deformity. EXTREMITIES: No cyanosis, clubbing, or pedal edema. NEUROLOGICAL: Gross neurological examination did not reveal any focal deficits. SKIN: No rashes. - Labs CBC & Chem 7: 08/28/19 06:21 08/30/19 06:57 Labs: Abnormal Lab Results - Last 24 Hours (Table) 08/29/19 08/30/19 08/30/19 Range/Units 20:49 06:57 06:57 PT 15.4 H (9.0-12.0) sec INR 1.6 H 1.2 H (<1.2) Creatinine 1.39 H (0.66-1.25) mg/dL Microbiology - Last 24 Hours (Table) 08/28/19 06:21 Blood Culture - Preliminary Blood No Growth after 48 hours 08/29/19 12:20 Gram Stain - Preliminary Sputum Sputum Culture - Preliminary Assessment and Plan Plan: -Aspiration pneumonia recurrent: Sepsis secondary to aspiration pneumonia patient will be can you Zosyn and clindamycin patient presently has a PEG tube now, patient the will be can you done IV fluids will be started on PEG tube feedings later today. -Oropharyngeal dysphagia due to undiagnosed neurological condition, patient will require PEG tube placement since same thing was discussed the patient patient is now agreeable for that --Atrial fibrillation, presently rate controlled chronic A. 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
[2019-08-30 14:32] VITALS: BMI 25.8
[2019-08-30] MEDS ORDERED: WARFARIN 5 MG TAB PO ONE (18:00)
[2019-08-30] MEDS: ATORVASTATIN 40 MG TAB PO SCH (22:52)
[2019-08-30] MEDS: METOPROLOL TARTRATE 50 MG TAB PO SCH (22:52)
[2019-08-30] MEDS: FAMOTIDINE 20 MG TAB PO SCH (22:52)
[2019-08-31] MEDS: PIPERACILLIN-TAZOBACTAM 3.375 GM in SODIUM CHLORIDE 0.9% 100 ML IVPB SCH ×2 (01:35→09:17)
[2019-08-31 03:28] VITALS: TEMP 97.9
[2019-08-31] MEDS: CLINDAMYCIN 600 MG in DEXTROSE 5% IN WATER 50 ML IVPB SCH ×2 (07:42)
[2019-08-31] MEDS: SODIUM CHLORIDE 0.9% 1,000 ML IV SCH (07:44)
[2019-08-31 07:49] LABS: INR 1.1 (<1.2); Prothrombin Time 10.9 sec (9.0-12.0)
[2019-08-31 08:10] VITALS: BP 135/76; PULSE 70; RESP 16
[2019-08-31] MEDS: SERTRALINE 100 MG TAB PO SCH (09:19)
[2019-08-31] MEDS: FAMOTIDINE 20 MG TAB PO SCH (09:19)
[2019-08-31] MEDS: GABAPENTIN 300 MG CAP PO SCH (09:19)
[2019-08-31] MEDS: ALLOPURINOL 100 MG TAB PO SCH (09:20)
[2019-08-31] MEDS: ASPIRIN 81 MG PO SCH (09:20)
[2019-08-31] MEDS: METOPROLOL TARTRATE 50 MG TAB PO SCH (09:20)
[2019-08-31] MEDS: MAGNESIUM OXIDE 400 MG TAB PO SCH (09:20)
[2019-08-31] MEDS ORDERED: WARFARIN 5 MG TAB PO SCH (18:00)
[2019-08-31] MEDS ORDERED: WARFARIN 5 MG TAB PO ONE (18:00)
--- NOTE | 2019-09-01 15:25 | P.DS ---
Providers Date of admission: 08/28/19 07:11 Expected date of discharge: 08/31/19 Attending physician: Ricardo Parra Primary care physician: [facility] Hospital Course: Final diagnosis -Aspiration pneumonia recurrent: Sepsis secondary to aspiration pneumonia -Oropharyngeal dysphagia due to undiagnosed neurological condition, patient will require PEG tube placement -Atrial fibrillation, presently rate controlled chronic A. 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 Patient will follow-up with [facility] upon discharge. Patient instructed to resume Coumadin as scheduled with repeat labs in the outpatient setting. Patient will continue on clindamycin for 5 days and then may discontinue. Total time taken is 35 minutes. History of present illness This is a 69-year-old male who was recently admitted oral pharyngeal dysphasia and recurrent aspiration and was being closely monitored. Patient was seen and evaluated by surgery and underwent a PEG tube placement and will continue tube feedings in the outpatient setting. Family member states she has supplies from previous PEG tube a year ago. Patient will follow-up with the [facility] for possible Homecare and refills in the outpatient setting. Patient would like to go home today. Currently no reports of chest pain, palpitations, or shortness. Patient is afebrile. No reports of nausea or vomiting and patient is tolerating diet. On exam vital signs are stable. Temp is 97.9F, pulse is 70, respirations are 16, blood pressure 135/76, oxygen saturation is 96% on room air. Cardio S1, S2 are present. Respiratory shows clear to auscultation. Abdomen is soft and nontender. PEG tube noted. Nervous system shows no focal deficits. Please refer to medication reconciliation sheet for a list of medications. Patient Condition at Discharge: Stable Plan - Discharge Summary New Discharge Prescriptions: New Metoprolol Tartrate [Lopressor] 50 mg PO BID 30 Days #60 tab Continue Gabapentin [Neurontin] 600 mg PO BID Sertraline HCl [Zoloft] 100 mg PO BID Omeprazole [PriLOSEC] 20 mg PO BID Allopurinol [Zyloprim] 100 mg PO BID Aspirin [Adult Low Dose Aspirin EC] 81 mg PO DAILY Acetaminophen-Codeine 300-30mg [Tylenol w/codeine #3] 1 tab PO TID PRN PRN Reason: Pain Warfarin [Coumadin] 2.5 mg PO SUTUWETHFRSA Warfarin [Coumadin] 5 mg PO MO Rosuvastatin Calcium [Crestor] 20 mg PO HS Magnesium 420mg 1 tab PO BID Discontinued Metoprolol Succinate [Toprol XL] 100 mg PO DAILY Amoxic-Pot Clav 875-125Mg [Augmentin 875-125] 1 tab PO Q12HR 5 Days #10 tab Discharge Medication List Allopurinol [Zyloprim] 100 mg PO BID 09/02/17 [History] Aspirin [Adult Low Dose Aspirin EC] 81 mg PO DAILY 09/02/17 [History] Gabapentin [Neurontin] 600 mg PO BID 09/02/17 [History] Omeprazole [PriLOSEC] 20 mg PO BID 09/02/17 [History] Sertraline HCl [Zoloft] 100 mg PO BID 09/02/17 [History] Acetaminophen-Codeine 300-30mg [Tylenol w/codeine #3] 1 tab PO TID PRN 04/01/19 [History] Magnesium 420mg 1 tab PO BID 08/20/19 [History] Rosuvastatin Calcium [Crestor] 20 mg PO HS 08/20/19 [History] Warfarin [Coumadin] 2.5 mg PO SUTUWETHFRSA 08/20/19 [History] Warfarin [Coumadin] 5 mg PO MO 08/20/19 [History] Metoprolol Tartrate [Lopressor] 50 mg PO BID 30 Days #60 tab 08/31/19 [Rx] Follow up Appointment(s)/Referral(s): [facility],Clinic [Primary Care Provider] - 09/01/19 8:00 am (Video appointment) Ambulatory/Diagnostic Orders: Basic Metabolic Panel [LAB.AMB] Time Frame: 2 Days, Location: None Selected Prothrombin Time INR [LAB.AMB] Time Frame: 2 Days, Location: None Selected Patient Instructions/Handouts: How to Use and Care for Your PEG Tube (DC), Aspiration Precautions (DC) Activity/Diet/Wound Care/Special Instructions: Activity limited until follow up continue with tube feedings as directed Goal is 60 mL per hour with free water bolus flushings of 30 mL every 4 hours, Jevity 1.5, monitor for residuals. Or give Jevity 1.5 360mL 4 times per day for a total 6 cans per day and give the free water flushes. Head of the bed elevated 30-45 at all times and maintain strict aspiration precautions Follow-up with primary care provider upon discharge Continue with antibiotics for 5 days then may discontinue Continue taking Coumadin Repeat labs in 2-3 days Discharge Disposition: HOME SELF-CARE
--- NOTE | 2019-09-03 13:29 | CDI ---
Documentation Clarification Form Date: 09/03/19 From: Liane Tejada Phone: If you have a question about this query, please contact Corin Rivas, Automotive Specialty Technician at [phone] between 8am and 5pm. Admit Date: 08/28/19 Discharge Date:08/31/19 Patient Name: Peter Apodaca Visit Number: [id number] ATTENTION: The Clinical Documentation Specialists (CDI) and [facility] Coding Staff appreciate your assistance in clarifying documentation. Please respond to the clarification below the line at the bottom and electronically sign. The CDI & [facility] Coding staff will review the response and follow-up if needed. Please note: Queries are made part of the Legal Health Record. If you have any questions, please contact the author of this message via ITS. Dear Dr. Parra Altered Mental Status was documented in the ED note. History/Risk Factors: Sepsis, aspiration pneumonia Clinical Indicators: Confused Labs: PT 17.9, INR 1.7, chloride 108, BUN 23, Creatinine 1.46, lactic acide 2.8 Treatment: 1 Liter NS bolus, plasma transfusion, IV Zosyn, IV Vitamin K In your professional opinion, please clarify the etiology of the Altered Mental Status, if known. Delirium (specify cause): Dementia (if know, specify Type and if with/without Behavioral Disturbance) Encephalopathy (specify Type and Underlying Medical Illness) Other condition (please specify) Unable to determine MTDD
== END 2019-08-31 15:39 | disposition home or self-care (01) | DRG 871 ==
LOC: EC 06:11 → 4SSUR 07:11
PROVIDERS: ADMIT Internal Medicine; ATTEND Internal Medicine
PROC: 30233K1 Transfusion of Nonautologous Frozen Plasma into Peripheral Vein, Percutaneous Approach (ICD-10-PCS; 2019-08-29)
PROC: 0DH63UZ Insertion of Feeding Device into Stomach, Percutaneous Approach (ICD-10-PCS; principal; 2019-08-30 09:16)
DX: A41.9 Sepsis, unspecified organism (principal); J69.0 Pneumonitis due to inhalation of food and vomit; I13.0 Hypertensive heart and chronic kidney disease with heart failure and stage 1 through stage 4 chronic kidney disease, or unspecified chronic kidney disease; I48.20 Chronic atrial fibrillation, unspecified; N17.9 Acute kidney failure, unspecified; I69.951 Hemiplegia and hemiparesis following unspecified cerebrovascular disease affecting right dominant side; R13.12 Dysphagia, oropharyngeal phase; I50.9 Heart failure, unspecified; N18.3 Chronic kidney disease, stage 3 (moderate); E78.5 Hyperlipidemia, unspecified; F17.200 Nicotine dependence, unspecified, uncomplicated; F32.9 Major depressive disorder, single episode, unspecified; F43.10 Post-traumatic stress disorder, unspecified; H91.90 Unspecified hearing loss, unspecified ear; J44.9 Chronic obstructive pulmonary disease, unspecified; G47.30 Sleep apnea, unspecified; I69.928 Other speech and language deficits following unspecified cerebrovascular disease; F41.9 Anxiety disorder, unspecified; G62.9 Polyneuropathy, unspecified; R79.1 Abnormal coagulation profile; Z20.828 Contact with and (suspected) exposure to other viral communicable diseases; Z79.01 Long term (current) use of anticoagulants; Z79.82 Long term (current) use of aspirin; Z79.899 Other long term (current) drug therapy; Z88.1 Allergy status to other antibiotic agents; Z88.2 Allergy status to sulfonamides; Z88.8 Allergy status to other drugs, medicaments and biological substances; Z87.898 Personal history of other specified conditions; Z95.5 Presence of coronary angioplasty implant and graft; Z95.810 Presence of automatic (implantable) cardiac defibrillator; Z82.49 Family history of ischemic heart disease and other diseases of the circulatory system
CPT/HCPCS: 36415; 43246; 71045; 71046; 80048; 80053; 81001; 83605; 83690; 84484; 85025; 85610; 85730; 86850; 86900; 86901; 87040; 87070; 87205; 93005; 96365; 96367; 99285

== ENCOUNTER 2020-12-27 14:09 | Emergency (ER) | payer OTHER, MEDICARE ==
[2020-12-27 14:21] VITALS: TEMP 98.8
--- NOTE | 2020-12-27 14:54 | XR ---
EXAMINATION TYPE: XR chest 2V DATE OF EXAM: 12/27/2020 COMPARISON: 08/29/2019 HISTORY: Shortness of breath TECHNIQUE: Frontal and lateral views of the chest are obtained. FINDINGS: Scattered senescent parenchymal changes noted. Hyperinflation compatible with COPD. No evidence for infiltrate. No evidence for atelectasis. There is cardiomegaly with pulmonary venous engorgement although there is no evidence for overt failu re. Mediastinal structures are stable and grossly unremarkable. No evidence for hilar prominence. Degenerative changes dorsal spine. IMPRESSION: 1. No evidence for acute pulmonary disease.
[2020-12-27] MEDS ORDERED: IPRATROPIUM-ALBUTEROL 3 ML NEB INHALATION STA (15:53)
[2020-12-27 16:48] LABS: Basophils % (A) 0 %; Eosinophils # (A) 0.1 k/uL (0-0.7); Eosinophils % (A) 1 %; HCT 42.7 % (39.0-53.0); HGB 13.5 gm/dL (13.0-17.5); Lymphocytes # (A) 0.8 k/uL (1.0-4.8); Lymphocytes % (A) 13 %; MCH 32.2 pg (25.0-35.0); MCHC 31.6 g/dL (31.0-37.0); MCV 101.6 fL (80.0-100.0); Macrocytosis Slight; Mean Platelet Volume 10.1; Monocytes # (A) 0.5 k/uL (0-1.0); Monocytes % (A) 8 %; Neutrophils # (A) 4.8 k/uL (1.3-7.7); Neutrophils % (A) 76 %; Platelet Count 114 k/uL (150-450); RBC 4.21 m/uL (4.30-5.90); RDW 14.6 % (11.5-15.5); WBC 6.4 k/uL (3.8-10.6)
[2020-12-27 16:59] LABS: Albumin 3.4 g/dL (3.5-5.0); Calcium 9.5 mg/dL (8.4-10.2); Total Bilirubin 0.9 mg/dL (0.2-1.3); Total Protein 6.5 g/dL (6.3-8.2)
[2020-12-27 17:02] LABS: Potassium 5.2 mmol/L (3.5-5.1)
--- NOTE | 2020-12-27 17:06 | ED ---
SOB HPI - General Chief Complaint: Shortness of Breath Stated Complaint: CHF, Sent from Urgent Care Time Seen by Provider: 12/27/20 14:20 Source: patient Mode of arrival: wheelchair Limitations: no limitations - History of Present Illness Initial Comments: 70-year-old male past history of A. fib, COPD, CHF who presents emergency Department with reported shortness of breath for the past 3 days. Daughter is at bedside and helps provide the history. He states that they went to an urgent care and had a chest x-ray performed. Was instructed to come to the ER as they saw fluid on the patient's chest x-ray. He does admit to a history of CHF. Was on diuretics however was taken off in August after his hospitalization here. Patient also has a history of COPD. Inhalers were recently changed approximately one month ago. He used to be on oxygen until 2 years ago. He admits to intermittent chest pain. Also admits to a nonproductive cough. No abdominal pain. Does admit to peripheral edema. No other alleviating, precipitating or modifying factors - Related Data Home Medications Medication Instructions Recorded Confirmed Aspirin [Adult Low Dose Aspirin EC] 81 mg PO DAILY 09/02/17 12/27/20 Gabapentin [Neurontin] 600 mg PO BID 09/02/17 12/27/20 Omeprazole [PriLOSEC] 20 mg PO BID 09/02/17 12/27/20 Sertraline HCl [Zoloft] 100 mg PO BID 09/02/17 12/27/20 allopurinoL [Zyloprim] 200 mg PO DAILY 09/02/17 12/27/20 Acetaminophen-Codeine 300-30mg 1 tab PO TID PRN 04/01/19 12/27/20 [Tylenol w/codeine #3] Magnesium 420mg 1 tab PO BID 08/20/19 12/27/20 Rosuvastatin Calcium [Crestor] 20 mg PO HS 08/20/19 12/27/20 Albuterol Sulfate [Albuterol 2 puff INHALATION RT-QID PRN 12/27/20 12/27/20 Sulfate Hfa] Apixaban [Eliquis] 5 mg PO BID 12/27/20 12/27/20 Fluticasone Propion/Salmeterol 1 puff INHALATION RT-BID 12/27/20 12/27/20 [Wixela 250-50 Inhub] Jevity 1.5 Jakob Liquid 474 ml PO TID 12/27/20 12/27/20 Metoprolol Succinate (ER) [Toprol 100 mg PO DAILY 12/27/20 12/27/20 Xl] Spironolactone 25 mg PO DAILY 12/27/20 12/27/20 lisinopriL [Zestril] 2.5 mg PO DAILY 12/27/20 12/27/20 Previous Rx's Medication Instructions Recorded Furosemide [Lasix] 40 mg PO DAILY #10 tablet 12/27/20 Ipratropium-Albuterol Nebulize 3 ml INHALATION QID #75 ml 12/27/20 [Duoneb 0.5 mg-3 mg/3 ml Soln] Allergies Allergy/AdvReac Type Severity Reaction Status Date / Time fluvastatin AdvReac Nausea & Verified 12/27/20 16:36 Vomiting metolazone [From Zaroxolyn] AdvReac Nausea & Verified 12/27/20 16:36 Vomiting simvastatin AdvReac Nausea & Verified 12/27/20 16:36 Vomiting sulfamethoxazole AdvReac Nausea & Verified 12/27/20 16:36 [From Bactrim] Vomiting trimethoprim [From Bactrim] AdvReac Nausea & Verified 12/27/20 16:36 Vomiting Review of Systems ROS Statement: Those systems with pertinent positive or pertinent negative responses have been documented in the HPI. ROS Other: All systems not noted in ROS Statement are negative. 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 sided weakness,cataracts, bruises easily due to coumadin,does not wear cpap,neuropathy moe. feet History of Any Multi-Drug Resistant Organisms: None Reported Past Surgical History: AICD, Heart Catheterization With Stent Additional Past Surgical History / Comment(s): AICD/Pacemaker, PEG tube placed in [address] Anglin in 2019 Past Anesthesia/Blood Transfusion Reactions: No Reported Reaction Date of Last Stent Placement:: unk Type of Cardiac Device: AICD Device Placement Date:: 2009 Past Psychological History: Anxiety, Depression, PTSD Smoking Status: Current every day smoker Past Alcohol Use History: Daily, Heavy Past Drug Use History: None Reported - Past Family History Brother(s) Family Medical History: Deep Vein Thrombosis (DVT) General Exam Limitations: no limitations General appearance: alert, in no apparent distress Head exam: Present: atraumatic, normocephalic, normal inspection Eye exam: Present: normal appearance, PERRL, EOMI. Absent: scleral icterus, conjunctival injection, periorbital swelling ENT exam: Present: normal exam, mucous membranes moist Neck exam: Present: normal inspection. Absent: tenderness, meningismus, lymphadenopathy Respiratory exam: Present: wheezes, accessory muscle use. Absent: respiratory distress, rales, rhonchi, stridor Cardiovascular Exam: Present: regular rate, normal rhythm, normal heart sounds. Absent: systolic murmur, diastolic murmur, rubs, gallop, clicks GI/Abdominal exam: Present: soft, normal bowel sounds. Absent: distended, tende rness, guarding, rebound, rigid Extremities exam: Present: normal inspection, full ROM, normal capillary refill. Absent: tenderness, pedal edema, joint swelling, calf tenderness Back exam: Present: normal inspection Neurological exam: Present: alert, oriented X3, CN II-XII intact Psychiatric exam: Present: normal affect, normal mood Skin exam: Present: warm, dry, intact, normal color. Absent: rash Course Vital Signs 12/27/20 12/27/20 12/27/20 14:18 16:03 16:33 Temperature 98.8 F Pulse Rate 66 72 72 Respiratory 19 18 Rate Blood Pressure 113/72 121/83 O2 Sat by Pulse 95 97 Oximetry 12/27/20 12/27/20 12/27/20 17:00 17:51 17:55 Temperature Pulse Rate 75 74 Respiratory 20 22 Rate Blood Pressure 115/97 O2 Sat by Pulse 98 92 L 94 L Oximetry 12/27/20 19:01 Temperature 98.8 F Pulse Rate 74 Respiratory 22 Rate Blood Pressure 115/97 O2 Sat by Pulse 94 L Oximetry Medical Decision Making - Medical Decision Making Upon arrival the patient is placed into room 27. He does have some conve rsational dyspnea. Saturations are 94%. Auscultation the patient's lungs demonstrates wheezing. IV is established laboratory studies are conducted. Patient went over for chest x-ray. He is given a DuoNeb breathing treatment. Laboratory studies are reviewed. [place] 5.[place] [address]. Chest x-ray demonstrates no evidence for acute pulmonary disease. Hyperinflation compatible with COPD and pulmonary venous engorgement although no evidence for overt failure. The patient is reevaluated and states that he has marked improvement in his breathing after the breathing treatment. I did discuss diagnosis, differential and treatment options. Patient does feel more comfortable going home at this time. I recommended giving Lasix prior to removing the patient's IV for which she did agree to. Patient will be sent home on 10 days worth of Lasix. I also write him for DuoNeb breathing treatments. Patient states that his has . I did recommend he follow up with his primary care physician later this week. If he does not have improvement in his symptoms within 72 hours he needs to return to the emergency room. Patient agreed to this, was given written verbal discharge instructions and discharged home in stable condition - Lab Data Result diagrams: 12/27/20 16:30 12/27/20 16:30 Lab Results 12/27/20 12/27/20 12/27/20 Range/Units 16:30 16:30 16:30 WBC 6.4 (3.8-10.6) k/uL RBC 4.21 L (4.30-5.90) m/uL Hgb 13.5 (13.0-17.5) gm/dL Hct 42.7 (39.0-53.0) % MCV 101.6 H (80.0-100.0) fL MCH 32.2 (25.0-35.0) pg MCHC 31.6 (31.0-37.0) g/dL RDW 14.6 (11.5-15.5) % Plt Count 114 L (150-450) k/uL MPV 10.1 Neutrophils % 76 % Lymphocytes % 13 % Monocytes % 8 % Eosinophils % 1 % Basophils % 0 % Neutrophils # 4.8 (1.3-7.7) k/uL Lymphocytes # 0.8 L (1.0-4.8) k/uL Monocytes # 0.5 (0-1.0) k/uL Eosinophils # 0.1 (0-0.7) k/uL Basophils # 0.0 (0-0.2) k/uL Macrocytosis Slight PT 10.8 (9.0-12.0) sec INR 1.0 (<1.2) APTT 26.6 (22.0-30.0) sec Sodium 137 (137-145) mmol/L Potassium 5.2 H (3.5-5.1) mmol/L Chloride 103 (98-107) mmol/L Carbon Dioxide 27 (22-30) mmol/L Anion Gap 7 mmol/L BUN 30 H (9-20) mg/dL Creatinine 1.07 (0.66-1.25) mg/dL Est GFR (CKD-EPI)AfAm 80 (>60 ml/min/1.73 sqM) Est GFR (CKD-EPI)NonAf 70 (>60 ml/min/1.73 sqM) Glucose 92 (74-99) mg/dL Calcium 9.5 (8.4-10.2) mg/dL Total Bilirubin 0.9 (0.2-1.3) mg/dL AST 42 (17-59) U/L ALT 27 (4-49) U/L Alkaline Phosphatase 73 (38-126) U/L Troponin I (0.000-0.034) ng/mL NT-Pro-B Natriuret Pep pg/mL Total Protein 6.5 (6.3-8.2) g/dL Albumin 3.4 L (3.5-5.0) g/dL 12/27/20 12/27/20 Range/Units 16:30 16:30 WBC (3.8-10.6) k/uL RBC (4.30-5.90) m/uL Hgb (13.0-17.5) gm/dL Hct (39.0-53.0) % MCV (80.0-100.0) fL MCH (25.0-35.0) pg MCHC (31.0-37.0) g/dL RDW (11.5-15.5) % Plt Count (150-450) k/uL MPV Neutrophils % % Lymphocytes % % Monocytes % % Eosinophils % % Basophils % % Neutrophils # (1.3-7.7) k/uL Lymphocytes # (1.0-4.8) k/uL Monocytes # (0-1.0) k/uL Eosinophils # (0-0.7) k/uL Basophils # (0-0.2) k/uL Macrocytosis PT (9.0-12.0) sec INR (<1.2) APTT (22.0-30.0) sec Sodium (137-145) mmol/L Potassium (3.5-5.1) mmol/L Chloride (98-107) mmol/L Carbon Dioxide (22-30) mmol/L Anion Gap mmol/L BUN (9-20) mg/dL Creatinine (0.66-1.25) mg/dL Est GFR (CKD-EPI)AfAm (>60 ml/min/1.73 sqM) Est GFR (CKD-EPI)NonAf (>60 ml/min/1.73 sqM) Glucose (74-99) mg/dL Calcium (8.4-10.2) mg/dL Total Bilirubin (0.2-1.3) mg/dL AST (17-59) U/L ALT (4-49) U/L Alkaline Phosphatase (38-126) U/L Troponin I 0.022 (0.000-0.034) ng/mL NT-Pro-B Natriuret Pep 57636 pg/mL Total Protein (6.3-8.2) g/dL Albumin (3.5-5.0) g/dL - EKG Data EKG Comments: EKG demonstrates electronic pacemaker. Rate of 73. QRS 158. QTC of 500. Pacemaker captures a properly. No acute ST segment elevations Disposition Clinical Impression: Pulmonary edema, Acute respiratory insufficiency, COPD (chronic obstructive pulmonary disease) Disposition: HOME SELF-CARE Condition: Stable Instructions (If sedation given, give patient instructions): Heart Failure (ER), COPD (Chronic Obstructive Pulmonary Disease) (ED) Additional Instructions: Please follow-up with your primary care doctor within 2-4 days. Return to the emergency room for any new or worsening symptoms. Use the breathing treatments every 4 hours. If you do not have any improvement in 48-72 hours, return to the ED. Prescriptions: Ipratropium-Albuterol Nebulize [Duoneb 0.5 mg-3 mg/3 ml Soln] 3 ml INHALATION QID #75 ml Furosemide [Lasix] 40 mg PO DAILY #10 tablet Is patient prescribed a controlled substance at d/c from ED?: No Referrals: [facility],Clinic [Primary Care Provider] - 1-2 days Time of Disposition: 18:29
[2020-12-27 17:16] LABS: Partial Thromboplastin Time 26.6 sec (22.0-30.0); Prothrombin Time 10.8 sec (9.0-12.0)
[2020-12-27 17:56] VITALS: BP 115/97; PULSE 74; RESP 22
[2020-12-27] MEDS ORDERED: FUROSEMIDE 10 MG/ML 10 ML VIAL IV STA (18:23)
== END 2020-12-27 19:01 | disposition home or self-care (01) ==
LOC: EC 14:09
DX: J44.9 Chronic obstructive pulmonary disease, unspecified (principal); R06.89 Other abnormalities of breathing; J81.1 Chronic pulmonary edema; H91.90 Unspecified hearing loss, unspecified ear; I11.0 Hypertensive heart disease with heart failure; E78.5 Hyperlipidemia, unspecified; I50.9 Heart failure, unspecified; I48.91 Unspecified atrial fibrillation; F17.200 Nicotine dependence, unspecified, uncomplicated; Z86.73 Personal history of transient ischemic attack (TIA), and cerebral infarction without residual deficits; Z95.5 Presence of coronary angioplasty implant and graft; Z79.82 Long term (current) use of aspirin; Z79.899 Other long term (current) drug therapy; Z79.51 Long term (current) use of inhaled steroids; Z88.1 Allergy status to other antibiotic agents; Z88.2 Allergy status to sulfonamides; Z95.810 Presence of automatic (implantable) cardiac defibrillator; Z88.8 Allergy status to other drugs, medicaments and biological substances
CPT/HCPCS: 36415; 94640; 93005; 83880; 80053; 84484; 85025; 85610; 85730; 71046; 99285; 96374; J1940

== ENCOUNTER 2021-02-08 12:04 | Inpatient (IN) | payer OTHER, MEDICARE ==
--- NOTE | 2021-02-08 13:47 | ED ---
SOB HPI - General Chief Complaint: Shortness of Breath Stated Complaint: AAMIR Time Seen by Provider: 02/08/21 12:10 Source: patient Mode of arrival: ambulatory Limitations: no limitations - History of Present Illness Initial Comments: 70-year-old male past medical history of A. fib, heart failure, hypertension, COPD not on home O2 presents the emergency department with reported fatigue and shortness of breath. Patient has been symptomatic for the past 4 days. He has had a poor appetite with little oral intake. He has a history of COPD and has been using his inhalers as directed. His Wixela inhaler was recently increased in dosage after he saw his primary care physician for his shortness of breath. He denies that it has helped. He admits to some increase in swelling in his lower extremities. His Lasix was changed about a month ago from 40 mg to 20 mg. He denies chest pain. Patient is anticoagulated on Ahlquist. Denies any missed doses. Patient has been slightly confused and therefore the daughter brought him into the emergency room. He was vaccinated against Covid earlier that she appeared. Denies fevers. No other alleviating, precipitating or modifying factors - Related Data Home Medications Medication Instructions Recorded Confirmed Aspirin [Adult Low Dose Aspirin EC] 81 mg PO DAILY 09/02/17 02/08/21 Omeprazole [PriLOSEC] 20 mg PO BID 09/02/17 02/08/21 Sertraline HCl [Zoloft] 100 mg PO BID 09/02/17 02/08/21 allopurinoL [Zyloprim] 100 mg PO BID 09/02/17 02/08/21 Acetaminophen-Codeine 300-30mg 1 tab PO TID PRN 04/01/19 02/08/21 [Tylenol w/codeine #3] Rosuvastatin Calcium [Crestor] 20 mg PO HS 08/20/19 02/08/21 Albuterol Sulfate [Albuterol 2 puff INHALATION RT-QID PRN 12/27/20 02/08/21 Sulfate Hfa] Apixaban [Eliquis] 5 mg PO BID 12/27/20 02/08/21 Jevity 1.5 Jakob Liquid 240 ml PO TID 12/27/20 02/08/21 Metoprolol Succinate (ER) [Toprol 100 mg PO DAILY 12/27/20 02/08/21 XL] Spironolactone 25 mg PO DAILY 12/27/20 02/08/21 lisinopriL [Zestril] 2.5 mg PO DAILY 12/27/20 02/08/21 Fluticasone Propion/Salmeterol 1 puff INHALATION RT-BID 02/08/21 02/08/21 [Wixela 500-50 Inhub] Furosemide [Lasix] 20 mg PO DAILY 02/08/21 02/08/21 Ipratropium-Albuterol Nebulize 3 ml INHALATION RT-QID 02/08/21 02/08/21 [Duoneb 0.5 mg-3 mg/3 ml Soln] Mag-Ox 420mg 420 mg PO BID 02/08/21 02/08/21 Potassium Chloride [Klor-Con 10 ER] 10 meq PO DAILY 02/08/21 02/08/21 Allergies Allergy/AdvReac Type Severity Reaction Status Date / Time metolazone [From Zaroxolyn] Allergy Rash/Hives Verified 02/08/21 13:34 warfarin [From Coumadin] Allergy Unknown Verified 02/08/21 13:34 fluvastatin AdvReac weakness/muscle Verified 02/08/21 13:34 pain simvastatin AdvReac muscle pain Verified 02/08/21 13:34 sulfamethoxazole AdvReac Abdominal Verified 02/08/21 13:34 [From Bactrim] Pain trimethoprim [From Bactrim] AdvReac Abdominal Verified 02/08/21 13:34 Pain Review of Systems ROS Statement: Those systems with pertinent positive or pertinent negative responses have been documented in the HPI. ROS Other: All systems not noted in ROS Statement are negative. 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 sided weakness,cataracts, bruises easily due to coumadin,does not wear cpap,neuropathy moe. feet History of Any Multi-Drug Resistant Organisms: None Reported Past Surgical History: AICD, Heart Catheterization With Stent Additional Past Surgical History / Comment(s): AICD/Pacemaker, PEG tube placed in [address] Anglin in 2019 Past Anesthesia/Blood Transfusion Reactions: No Reported Reaction Date of Last Stent Placement:: unk Type of Cardiac Device: AICD Device Placement Date:: 2009 Past Psychological History: Anxiety, Depression, PTSD Smoking Status: Current every day smoker Past Alcohol Use History: Daily, Heavy Past Drug Use History: None Reported - Past Family History Brother(s) Family Medical History: Deep Vein Thrombosis (DVT) General Exam Limitations: no limitations General appearance: alert, in no apparent distress, other (fatigued) Head exam: Present: atraumatic, normocephalic, normal inspection Eye exam: Present: normal appearance, PERRL, EOMI. Absent: scleral icterus, conjunctival injection, periorbital swelling ENT exam: Present: normal exam, mucous membranes moist Neck exam: Present: normal inspection. Absent: tenderness, meningismus, ly mphadenopathy Respiratory exam: Present: normal lung sounds bilaterally. Absent: respiratory distress, wheezes, rales, rhonchi, stridor Cardiovascular Exam: Present: regular rate, normal rhythm, normal heart sounds. Absent: systolic murmur, diastolic murmur, rubs, gallop, clicks GI/Abdominal exam: Present: soft, normal bowel sounds. Absent: distended, tenderness, guarding, rebound, rigid Extremities exam: Present: normal inspection, full ROM, normal capillary refill, pedal edema. Absent: tenderness, joint swelling, calf tenderness Back exam: Present: normal inspection Neurological exam: Present: alert, oriented X3, CN II-XII intact Psychiatric exam: Present: normal affect, normal mood Skin exam: Present: warm, dry, intact, normal color. Absent: rash Course Vital Signs 02/08/21 02/08/21 02/08/21 12:11 13:56 13:57 Temperature 98.2 F Pulse Rate 78 70 Respiratory 18 18 20 Rate Blood Pressure 99/63 111/78 O2 Sat by Pulse 96 97 Oximetry 02/08/21 02/08/21 02/08/21 15:43 15:54 20:42 Temperature Pulse Rate 72 70 72 Respiratory 16 17 Rate Blood Pressure 110/60 O2 Sat by Pulse 97 Oximetry 02/08/21 02/08/21 20:53 21:03 Temperature Pulse Rate 72 76 Respiratory Rate Blood Pressure O2 Sat by Pulse Oximetry Medical Decision Making - Medical Decision Making Upon arrival the patient is placed into room 19. A thorough history and physical exam is performed. IV is established. Laboratory studies are conducted. Patient is swabbed for Covid. Chest x-rays performed. Laboratory studies are reviewed. Creatinine 1.4. Troponin mildly elevated at 0.051. BNP 21,400. Covid is not detected. Patient was given a DuoNeb breathing treatment and 125 mg of Solu-Medrol. Blood cultures obtained. Chest x-ray reviewed and demonstrates mild cardiomegaly, COPD and pulmonary arterial hypertension. Some prominence could reflect bronchitis or chronic asthma. The patient is reevaluated. Due to his elevated troponin, general fatigue with poor oral intake I did recommend admission for which the patient did agree to. Spoke with Dr. Davila who agreed to admit the patient. He is currently awaiting a bed on the floor - Lab Data Result diagrams: 02/11/21 12:41 02/11/21 12:41 Lab Results 02/08/21 02/08/21 02/08/21 Range/Units 13:16 13:16 13:16 WBC 6.1 (3.8-10.6) k/uL RBC 4.55 (4.30-5.90) m/uL Hgb 14.8 (13.0-17.5) gm/dL Hct 44.5 (39.0-53.0) % MCV 97.8 (80.0-100.0) fL MCH 32.5 (25.0-35.0) pg MCHC 33.2 (31.0-37.0) g/dL RDW 15.8 H (11.5-15.5) % Plt Count 106 L (150-450) k/uL MPV 12.4 Neutrophils % 79 % Lymphocytes % 10 % Monocytes % 8 % Eosinophils % 0 % Basophils % 1 % Neutrophils # 4.8 (1.3-7.7) k/uL Lymphocytes # 0.6 L (1.0-4.8) k/uL Monocytes # 0.5 (0-1.0) k/uL Eosinophils # 0.0 (0-0.7) k/uL Basophils # 0.0 (0-0.2) k/uL Hypochromasia Macrocytosis Slight PT 10.8 (9.0-12.0) sec INR 1.0 (<1.2) APTT 26.4 (22.0-30.0) sec D-Dimer (<0.60) mg/L FEU Sodium (137-145) mmol/L Potassium (3.5-5.1) mmol/L Chloride (98-107) mmol/L Carbon Dioxide (22-30) mmol/L Anion Gap mmol/L BUN (9-20) mg/dL Creatinine (0.66-1.25) mg/dL Est GFR (CKD-EPI)AfAm (>60 ml/min/1.73 sqM) Est GFR (CKD-EPI)NonAf (>60 ml/min/1.73 sqM) Glucose (74-99) mg/dL POC Glucose (mg/dL) (75-99) mg/dL POC Glu Smt Operator ID Plasma Lactic Acid Marlon 1.7 (0.7-2.0) mmol/L Calcium (8.4-10.2) mg/dL Total Bilirubin (0.2-1.3) mg/dL AST (17-59) U/L ALT (4-49) U/L Alkaline Phosphatase (38-126) U/L Troponin I (0.000-0.034) ng/mL NT-Pro-B Natriuret Pep pg/mL Total Protein (6.3-8.2) g/dL Albumin (3.5-5.0) g/dL Coronavirus (PCR) (Not Detectd) 02/08/21 02/08/21 02/08/21 Range/Units 13:16 13:45 13:45 WBC (3.8-10.6) k/uL RBC (4.30-5.90) m/uL Hgb (13.0-17.5) gm/dL Hct (39.0-53.0) % MCV (80.0-100.0) fL MCH (25.0-35.0) pg MCHC (31.0-37.0) g/dL RDW (11.5-15.5) % Plt Count (150-450) k/uL MPV Neutrophils % % Lymphocytes % % Monocytes % % Eosinophils % % Basophils % % Neutrophils # (1.3-7.7) k/uL Lymphocytes # (1.0-4.8) k/uL Monocytes # (0-1.0) k/uL Eosinophils # (0-0.7) k/uL Basophils # (0-0.2) k/uL Hypochromasia Macrocytosis PT (9.0-12.0) sec INR (<1.2) APTT (22.0-30.0) sec D-Dimer (<0.60) mg/L FEU Sodium 136 L (137-145) mmol/L Potassium 4.9 (3.5-5.1) mmol/L Chloride 98 (98-107) mmol/L Carbon Dioxide 32 H (22-30) mmol/L Anion Gap 6 mmol/L BUN 37 H (9-20) mg/dL Creatinine 1.44 H (0.66-1.25) mg/dL Est GFR (CKD-EPI)AfAm 56 (>60 ml/min/1.73 sqM) Est GFR (CKD-EPI)NonAf 48 (>60 ml/min/1.73 sqM) Glucose 96 (74-99) mg/dL POC Glucose (mg/dL) (75-99) mg/dL POC Glu Smt Operator ID Plasma Lactic Acid Marlon (0.7-2.0) mmol/L Calcium 9.4 (8.4-10.2) mg/dL Total Bilirubin 0.5 (0.2-1.3) mg/dL AST 35 (17-59) U/L ALT 20 (4-49) U/L Alkaline Phosphatase 85 (38-126) U/L Troponin I 0.051 H* (0.000-0.034) ng/mL NT-Pro-B Natriuret Pep 63286 pg/mL Total Protein 6.7 (6.3-8.2) g/dL Albumin 3.6 (3.5-5.0) g/dL Coronavirus (PCR) (Not Detectd) 02/08/21 02/08/21 02/08/21 Range/Units 13:47 18:31 18:55 WBC (3.8-10.6) k/uL RBC (4.30-5.90) m/uL Hgb (13.0-17.5) gm/dL Hct (39.0-53.0) % MCV (80.0-100.0) fL MCH (25.0-35.0) pg MCHC (31.0-37.0) g/dL RDW (11.5-15.5) % Plt Count (150-450) k/uL MPV Neutrophils % % Lymphocytes % % Monocytes % % Eosinophils % % Basophils % % Neutrophils # (1.3-7.7) k/uL Lymphocytes # (1.0-4.8) k/uL Monocytes # (0-1.0) k/uL Eosinophils # (0-0.7) k/uL Basophils # (0-0.2) k/uL Hypochromasia Macrocytosis PT (9.0-12.0) sec INR (<1.2) APTT (22.0-30.0) sec D-Dimer (<0.60) mg/L FEU Sodium (137-145) mmol/L Potassium (3.5-5.1) mmol/L Chloride (98-107) mmol/L Carbon Dioxide (22-30) mmol/L Anion Gap mmol/L BUN (9-20) mg/dL Creatinine (0.66-1.25) mg/dL Est GFR (CKD-EPI)AfAm (>60 ml/min/1.73 sqM) Est GFR (CKD-EPI)NonAf (>60 ml/min/1.73 sqM) Glucose (74-99) mg/dL POC Glucose (mg/dL) (75-99) mg/dL POC Glu Smt Operator ID Plasma Lactic Acid Marlon (0.7-2.0) mmol/L Calcium (8.4-10.2) mg/dL Total Bilirubin (0.2-1.3) mg/dL AST (17-59) U/L ALT (4-49) U/L Alkaline Phosphatase (38-126) U/L Troponin I 0.060 H* (0.000-0.034) ng/mL NT-Pro-B Natriuret Pep pg/mL Total Protein (6.3-8.2) g/dL Albumin (3.5-5.0) g/dL Coronavirus (PCR) Not Detected Not Detected (Not Detectd) 02/08/21 02/08/21 02/09/21 Range/Units 21:19 21:21 06:07 WBC (3.8-10.6) k/uL RBC (4.30-5.90) m/uL Hgb (13.0-17.5) gm/dL Hct (39.0-53.0) % MCV (80.0-100.0) fL MCH (25.0-35.0) pg MCHC (31.0-37.0) g/dL RDW (11.5-15.5) % Plt Count (150-450) k/uL MPV Neutrophils % % Lymphocytes % % Monocytes % % Eosinophils % % Basophils % % Neutrophils # (1.3-7.7) k/uL Lymphocytes # (1.0-4.8) k/uL Monocytes # (0-1.0) k/uL Eosinophils # (0-0.7) k/uL Basophils # (0-0.2) k/uL Hypochromasia Macrocytosis PT (9.0-12.0) sec INR (<1.2) APTT (22.0-30.0) sec D-Dimer (<0.60) mg/L FEU Sodium (137-145) mmol/L Potassium (3.5-5.1) mmol/L Chloride (98-107) mmol/L Carbon Dioxide (22-30) mmol/L Anion Gap mmol/L BUN (9-20) mg/dL Creatinine (0.66-1.25) mg/dL Est GFR (CKD-EPI)AfAm (>60 ml/min/1.73 sqM) Est GFR (CKD-EPI)NonAf (>60 ml/min/1.73 sqM) Glucose (74-99) mg/dL POC Glucose (mg/dL) 120 H 151 H (75-99) mg/dL POC Glu Smt Operator Shamir Luong Steve Plasma Lactic Acid Marlon (0.7-2.0) mmol/L Calcium (8.4-10.2) mg/dL Total Bilirubin (0.2-1.3) mg/dL AST (17-59) U/L ALT (4-49) U/L Alkaline Phosphatase (38-126) U/L Troponin I 0.048 H* (0.000-0.034) ng/mL NT-Pro-B Natriuret Pep pg/mL Total Protein (6.3-8.2) g/dL Albumin (3.5-5.0) g/dL Coronavirus (PCR) (Not Detectd) 02/09/21 02/09/21 02/09/21 Range/Units 08:09 08:09 10:44 WBC 3.6 L (3.8-10.6) k/uL RBC 4.41 (4.30-5.90) m/uL Hgb 14.0 (13.0-17.5) gm/dL Hct 44.3 (39.0-53.0) % MCV 100.5 H (80.0-100.0) fL MCH 31.8 (25.0-35.0) pg MCHC 31.6 (31.0-37.0) g/dL RDW 15.1 (11.5-15.5) % Plt Count 123 L (150-450) k/uL MPV 10.6 Neutrophils % 79 % Lymphocytes % 15 % Monocytes % 5 % Eosinophils % 0 % Basophils % 0 % Neutrophils # 2.8 (1.3-7.7) k/uL Lymphocytes # 0.5 L (1.0-4.8) k/uL Monocytes # 0.2 (0-1.0) k/uL Eosinophils # 0.0 (0-0.7) k/uL Basophils # 0.0 (0-0.2) k/uL Hypochromasia Macrocytosis Slight PT (9.0-12.0) sec INR (<1.2) APTT (22.0-30.0) sec D-Dimer 0.56 (<0.60) mg/L FEU Sodium 138 (137-145) mmol/L Potassium 5.3 H (3.5-5.1) mmol/L Chloride 101 (98-107) mmol/L Carbon Dioxide 30 (22-30) mmol/L Anion Gap 7 mmol/L BUN 43 H (9-20) mg/dL Creatinine 1.57 H (0.66-1.25) mg/dL Est GFR (CKD-EPI)AfAm 50 (>60 ml/min/1.73 sqM) Est GFR (CKD-EPI)NonAf 44 (>60 ml/min/1.73 sqM) Glucose 140 H (74-99) mg/dL POC Glucose (mg/dL) (75-99) mg/dL POC Glu Smt Operator ID Plasma Lactic Acid Marlon (0.7-2.0) mmol/L Calcium 9.6 (8.4-10.2) mg/dL Total Bilirubin (0.2-1.3) mg/dL AST (17-59) U/L ALT (4-49) U/L Alkaline Phosphatase (38-126) U/L Troponin I (0.000-0.034) ng/mL NT-Pro-B Natriuret Pep pg/mL Total Protein (6.3-8.2) g/dL Albumin (3.5-5.0) g/dL Coronavirus (PCR) (Not Detectd) 02/09/21 02/09/21 02/09/21 Range/Units 10:53 16:15 19:56 WBC (3.8-10.6) k/uL RBC (4.30-5.90) m/uL Hgb (13.0-17.5) gm/dL Hct (39.0-53.0) % MCV (80.0-100.0) fL MCH (25.0-35.0) pg MCHC (31.0-37.0) g/dL RDW (11.5-15.5) % Plt Count (150-450) k/uL MPV Neutrophils % % Lymphocytes % % Monocytes % % Eosinophils % % Basophils % % Neutrophils # (1.3-7.7) k/uL Lymphocytes # (1.0-4.8) k/uL Monocytes # (0-1.0) k/uL Eosinophils # (0-0.7) k/uL Basophils # (0-0.2) k/uL Hypochromasia Macrocytosis PT (9.0-12.0) sec INR (<1.2) APTT (22.0-30.0) sec D-Dimer (<0.60) mg/L FEU Sodium (137-145) mmol/L Potassium (3.5-5.1) mmol/L Chloride (98-107) mmol/L Carbon Dioxide (22-30) mmol/L Anion Gap mmol/L BUN (9-20) mg/dL Creatinine (0.66-1.25) mg/dL Est GFR (CKD-EPI)AfAm (>60 ml/min/1.73 sqM) Est GFR (CKD-EPI)NonAf (>60 ml/min/1.73 sqM) Glucose (74-99) mg/dL POC Glucose (mg/dL) 168 H 131 H 98 (75-99) mg/dL POC Glu Smt Operator Holly Fields, Monika Cardenas Plasma Lactic Acid Marlon (0.7-2.0) mmol/L Calcium (8.4-10.2) mg/dL Total Bilirubin (0.2-1.3) mg/dL AST (17-59) U/L ALT (4-49) U/L Alkaline Phosphatase (38-126) U/L Troponin I (0.000-0.034) ng/mL NT-Pro-B Natriuret Pep pg/mL Total Protein (6.3-8.2) g/dL Albumin (3.5-5.0) g/dL Coronavirus (PCR) (Not Detectd) 02/10/21 02/10/21 02/10/21 Range/Units 05:47 09:32 09:32 WBC 10.6 (3.8-10.6) k/uL RBC 4.45 (4.30-5.90) m/uL Hgb 14.1 (13.0-17.5) gm/dL Hct 45.0 (39.0-53.0) % MCV 101.1 H (80.0-100.0) fL MCH 31.6 (25.0-35.0) pg MCHC 31.2 (31.0-37.0) g/dL RDW 15.1 (11.5-15.5) % Plt Count 127 L (150-450) k/uL MPV 10.2 Neutrophils % 83 % Lymphocytes % 12 % Monocytes % 4 % Eosinophils % 0 % Basophils % 0 % Neutrophils # 8.7 H (1.3-7.7) k/uL Lymphocytes # 1.2 (1.0-4.8) k/uL Monocytes # 0.5 (0-1.0) k/uL Eosinophils # 0.0 (0-0.7) k/uL Basophils # 0.0 (0-0.2) k/uL Hypochromasia Slight Macrocytosis Slight PT (9.0-12.0) sec INR (<1.2) APTT (22.0-30.0) sec D-Dimer (<0.60) mg/L FEU Sodium 140 (137-145) mmol/L Potassium 4.7 (3.5-5.1) mmol/L Chloride 102 (98-107) mmol/L Carbon Dioxide 32 H (22-30) mmol/L Anion Gap 6 mmol/L BUN 52 H (9-20) mg/dL Creatinine 1.71 H (0.66-1.25) mg/dL Est GFR (CKD-EPI)AfAm 45 (>60 ml/min/1.73 sqM) Est GFR (CKD-EPI)NonAf 39 (>60 ml/min/1.73 sqM) Glucose 92 (74-99) mg/dL POC Glucose (mg/dL) 93 (75-99) mg/dL POC Glu Smt Operator ID Monika Luz Plasma Lactic Acid Marlon (0.7-2.0) mmol/L Calcium 9.6 (8.4-10.2) mg/dL Total Bilirubin (0.2-1.3) mg/dL AST (17-59) U/L ALT (4-49) U/L Alkaline Phosphatase (38-126) U/L Troponin I (0.000-0.034) ng/mL NT-Pro-B Natriuret Pep pg/mL Total Protein (6.3-8.2) g/dL Albumin (3.5-5.0) g/dL Coronavirus (PCR) (Not Detectd) 02/10/21 02/10/21 02/10/21 Range/Units 11:37 16:26 20:02 WBC (3.8-10.6) k/uL RBC (4.30-5.90) m/uL Hgb (13.0-17.5) gm/dL Hct (39.0-53.0) % MCV (80.0-100.0) fL MCH (25.0-35.0) pg MCHC (31.0-37.0) g/dL RDW (11.5-15.5) % Plt Count (150-450) k/uL MPV Neutrophils % % Lymphocytes % % Monocytes % % Eosinophils % % Basophils % % Neutrophils # (1.3-7.7) k/uL Lymphocytes # (1.0-4.8) k/uL Monocytes # (0-1.0) k/uL Eosinophils # (0-0.7) k/uL Basophils # (0-0.2) k/uL Hypochromasia Macrocytosis PT (9.0-12.0) sec INR (<1.2) APTT (22.0-30.0) sec D-Dimer (<0.60) mg/L FEU Sodium (137-145) mmol/L Potassium (3.5-5.1) mmol/L Chloride (98-107) mmol/L Carbon Dioxide (22-30) mmol/L Anion Gap mmol/L BUN (9-20) mg/dL Creatinine (0.66-1.25) mg/dL Est GFR (CKD-EPI)AfAm (>60 ml/min/1.73 sqM) Est GFR (CKD-EPI)NonAf (>60 ml/min/1.73 sqM) Glucose (74-99) mg/dL POC Glucose (mg/dL) 108 H 138 H 120 H (75-99) mg/dL POC Glu Smt Operator BARBARA Luevano, Laurie Luevano, Mirza Fraser Plasma Lactic Acid Marlon (0.7-2.0) mmol/L Calcium (8.4-10.2) mg/dL Total Bilirubin (0.2-1.3) mg/dL AST (17-59) U/L ALT (4-49) U/L Alkaline Phosphatase (38-126) U/L Troponin I (0.000-0.034) ng/mL NT-Pro-B Natriuret Pep pg/mL Total Protein (6.3-8.2) g/dL Albumin (3.5-5.0) g/dL Coronavirus (PCR) (Not Detectd) 02/11/21 Range/Units 06:18 WBC (3.8-10.6) k/uL RBC (4.30-5.90) m/uL Hgb (13.0-17.5) gm/dL Hct (39.0-53.0) % MCV (80.0-100.0) fL MCH (25.0-35.0) pg MCHC (31.0-37.0) g/dL RDW (11.5-15.5) % Plt Count (150-450) k/uL MPV Neutrophils % % Lymphocytes % % Monocytes % % Eosinophils % % Basophils % % Neutrophils # (1.3-7.7) k/uL Lymphocytes # (1.0-4.8) k/uL Monocytes # (0-1.0) k/uL Eosinophils # (0-0.7) k/uL Basophils # (0-0.2) k/uL Hypochromasia Macrocytosis PT (9.0-12.0) sec INR (<1.2) APTT (22.0-30.0) sec D-Dimer (<0.60) mg/L FEU Sodium (137-145) mmol/L Potassium (3.5-5.1) mmol/L Chloride (98-107) mmol/L Carbon Dioxide (22-30) mmol/L Anion Gap mmol/L BUN (9-20) mg/dL Creatinine (0.66-1.25) mg/dL Est GFR (CKD-EPI)AfAm (>60 ml/min/1.73 sqM) Est GFR (CKD-EPI)NonAf (>60 ml/min/1.73 sqM) Glucose (74-99) mg/dL POC Glucose (mg/dL) 120 H (75-99) mg/dL POC Glu Smt Operator ID Mirza Johnston Plasma Lactic Acid Marlon (0.7-2.0) mmol/L Calcium (8.4-10.2) mg/dL Total Bilirubin (0.2-1.3) mg/dL AST (17-59) U/L ALT (4-49) U/L Alkaline Phosphatase (38-126) U/L Troponin I (0.000-0.034) ng/mL NT-Pro-B Natriuret Pep pg/mL Total Protein (6.3-8.2) g/dL Albumin (3.5-5.0) g/dL Coronavirus (PCR) (Not Detectd) - EKG Data EKG Comments: EKG demonstrates a ventricularly paced rhythm with a rate of 71. Pacemaker captures properly. QRS 158. QTC of 497. No acute ST segment elevations or depressions Disposition Clinical Impression: COPD exacerbation, Dehydration, Elevated troponin Disposition: ADMITTED IP TO THIS HOSP Condition: Stable Is patient prescribed a controlled substance at d/c from ED?: No Decision to Admit Reason: Admit from EC Decision Date: 02/08/21 Decision Time: 15:23
--- NOTE | 2021-02-08 14:07 | XR ---
EXAMINATION TYPE: XR chest 2V DATE OF EXAM: 02/08/2021 COMPARISON: 12/27/2020 HISTORY: 70-year-old male shortness of breath, cough, difficulty breathing and weakness TECHNIQUE: PA and lateral views FINDINGS: Left anterior chest wall AICD generator with a right ventricular and coronary sinus lead. Heart is mi ldly enlarged. Bilateral hilar prominence. Mild diffuse interstitial prominence. Old healed left lowe r rib fracture deformities. Mild hyperinflation. No gregoria consolidation or pleural effusion seen. IMPRESSION: Mild cardiomegaly, COPD, and pulmonary arterial hypertension. Some interstitial prominence could refl ect bronchitis or chronic asthma. No focal infiltrate seen.
[2021-02-08 14:18] LABS: Albumin 3.6 g/dL (3.5-5.0); Calcium 9.4 mg/dL (8.4-10.2); Potassium 4.9 mmol/L (3.5-5.1); Total Bilirubin 0.5 mg/dL (0.2-1.3); Total Protein 6.7 g/dL (6.3-8.2)
[2021-02-08 14:25] LABS: Partial Thromboplastin Time 26.4 sec (22.0-30.0); Prothrombin Time 10.8 sec (9.0-12.0)
[2021-02-08 14:34] LABS: Basophils % (A) 1 %; Eosinophils % (A) 0 %; HCT 44.5 % (39.0-53.0); HGB 14.8 gm/dL (13.0-17.5); Lymphocytes # (A) 0.6 k/uL (1.0-4.8); Lymphocytes % (A) 10 %; MCH 32.5 pg (25.0-35.0); MCHC 33.2 g/dL (31.0-37.0); MCV 97.8 fL (80.0-100.0); Macrocytosis Slight; Mean Platelet Volume 12.4; Monocytes # (A) 0.5 k/uL (0-1.0); Monocytes % (A) 8 %; Neutrophils # (A) 4.8 k/uL (1.3-7.7); Neutrophils % (A) 79 %; Platelet Count 106 k/uL (150-450); RBC 4.55 m/uL (4.30-5.90); RDW 15.8 % (11.5-15.5); WBC 6.1 k/uL (3.8-10.6)
[2021-02-08] MEDS ORDERED: ONDANSETRON ODT 4 MG TAB PO STA (14:53)
[2021-02-08] MEDS ORDERED: KETOROLAC 15 MG/ML 1 ML VIAL IM STA (14:53)
[2021-02-08] MEDS ORDERED: IPRATROPIUM-ALBUTEROL 3 ML NEB INHALATION STA (15:20)
[2021-02-08] MEDS ORDERED: methylPREDNISolone SOD SUCCI 125 MG/2 ML VIAL IV STA (15:21)
[2021-02-08] MEDS ORDERED: IPRATROPIUM-ALBUTEROL 3 ML NEB INHALATION PRN (15:23)
[2021-02-08] MEDS ORDERED: NALOXONE 0.4 MG/ML 1 ML VIAL IV PRN (15:26)
[2021-02-08] MEDS ORDERED: Acetaminophen-Codeine 300-30mg TAB PO PRN (15:30)
[2021-02-08] MEDS ORDERED: cefTRIAXone IN SWFI 1,000 MG/10 ML SYRINGE IVP STA (15:38)
[2021-02-08] MEDS ORDERED: AZITHROMYCIN 500 MG in SODIUM CHLORIDE 0.9% 250 ML IVPB STA (15:38)
[2021-02-08] MEDS ORDERED: NON FORMULARY DRUG (Jevity 1.5 Cal Liquid 1,000 ML Ml) PO SCH (16:00)
[2021-02-08] MEDS: ASPIRIN 81 MG PO SCH (16:21)
--- NOTE | 2021-02-08 19:46 | CT ---
EXAMINATION TYPE: CT brain wo con DATE OF EXAM: 02/08/2021 COMPARISON: 08/20/2019 HISTORY: Altered mental status. CT DLP: 1091.4 mGycm Automated exposure control for dose reduction was used. There is cerebral atrophy. There is enlargement of the sylvian fissures and more on the left side. Th ere is hypodensity in the left temporal lobe consistent with old infarct and encephalomalacia. There is no mass effect nor midline shift. There is no sign of intracranial hemorrhage. The calvarium is in tact. The skull base is intact. IMPRESSION: Cerebral atrophy. Old left temporal lobe infarct. Chronic small vessel ischemia. No significant stephens e compared to old exam.
--- NOTE | 2021-02-08 20:21 | HP ---
HISTORY AND PHYSICAL DATE OF SERVICE: 02/08/2021 CHIEF COMPLAINT: Shortness of breath. HISTORY OF PRESENT ILLNESS: This 70-year-old gentleman with a past medical history of atrial fibrillation, CHF, COPD, CVA, TIA, history of hypertension, hyperlipidemia, history of sleep apnea, being followed by Dr. Benjamin in the [facility] in the outpatient setting complaining of shortness of breath. The patient also complains of some tiredness and weakness. The patient is mildly confused also. The patient had some fatigue and shortness of breath and the patient is symptomatic over the past 4 days. The inhalers would not work for COPD and the patient came to [facility] and was admitted to the hospital for further evaluation and treatment. Chest x-ray showed some minimal suspected infiltrate which was reviewed personally by me and Covid 19 was negative even though the patient apparently did not get the Covid vaccine yet. There is no history of fever, rigors, no history of headache, loss of consciousness, seizures. A detailed history could not be taken from the patient. Most of the history is taken from my discussion with the ER physician and discussion with staff as well as review of the charts. The labs are reviewed. The creatinine is elevated 1.44. Troponin elevated 0.051. The EKG done in the ER and also reviewed personally by me showed some paced rhythm. PAST MEDICAL HISTORY: History of atrial fibrillation, CHF, COPD, CVA, TIA, and hearing deficits, hypertension and hyperlipidemia. MEDICATIONS: Home medications include: Klor-Con 10 mEq, magnesium oxide, Crestor, Prilosec, DuoNeb, Zoloft, Lasix, Eliquis, Zestril, Zyloprim, doses and other medications reviewed. ALLERGIES: ZAROXOLYN, COUMADIN, FLUVASTATIN, SIMVASTATIN, BACTRIM. Family history, social history and review of systems could not be taken because of change in mental status. The patient is confused. FAMILY HISTORY: DVT per chart. PHYSICAL EXAMINATION: Patient is conscious, confused. Pulse 70. Blood pressure 111/78, respiration 18. Temp is normal. Pulse ox 97% on 2 L. HEENT: Conjunctivae normal. NECK: No JVD. CARDIOVASCULAR: S1, S2 muffled. RESPIRATION: Breath sounds diminished in the bases. A few scattered rhonchi and crackles. Breathing efforts are mildly increased. ABDOMEN: Soft, nontender. LEGS: No edema. No swelling. NERVOUS SYSTEM: Higher functions as mentioned earlier. Moves all four limbs. Mild diffuse weakness. LYMPHATICS: No lymph nodes palpable in the neck, axillae or groin. SKIN: No ulcer, no rashes and no bleeding. JOINTS: No active deforming arthropathy. LABS: CBC noted. Platelets are 106. Sodium 133. Creatinine is 1.44. Troponin 0.051. Chest x-ray reviewed personally. Otherwise the EKG also noted. ASSESSMENT: 1. Chronic obstructive pulmonary disease acute exacerbation with acute purulent tracheobronchitis probably early interstitial pneumonia. 2. Rule out Covid 19. 3. Change in mental status, acute metabolic encephalopathy. 4. Thrombocytopenia. 5. Hyponatremia. 6. Elevated creatinine with acute renal failure. 7. Possible chronic kidney disease stage 3, baseline. 8. Troponin 0.051, indeterminate. Rule out acute jxe-BU-sxykznn-elevation myocardial infarction. 9. History of atrial fibrillation. 10.History of aspiration pneumonia secondary to oropharyngeal dysphagia secondary to undiagnosed neurological condition. 11.History of congestive heart failure, ejection fraction unknown. 12.History of chronic obstructive pulmonary disease. 13.History of cerebrovascular accident, transient ischemic attack. 14.History of hard of hearing. 15.Hypertension. 16.Hyperlipidemia. 17.History of sleep apnea. 18.History of cerebrovascular accident. 19.History of AICD. 20.History of coronary artery disease/ stent. 21.History of anxiety, depression, PTSD. 22.History of nicotine dependence. 23.FULL CODE. RECOMMENDATIONS AND DISCUSSION: This 70-year-old gentleman who presented with multiple complex medical issues, we will monitor the patient closely. Continue the current medications, management and symptomatic treatment. We will treat the patient for COPD with intensive bronchodilators and steroids. Pulmonary consultation. I would also recommend a CT scan of the brain to rule out the possibility of acute stroke and associated issues. IV steroids have been recommended. Empiric antibiotics. Covid 19 has been negative. I will also check for influenza and other seasonal infections also as mentioned earlier. Gentle hydration and I would also recommend Cardiology consultation for continued followup. Empiric antibiotics have been initiated from the ER and we will continue to monitor. The overall prognosis guarded because of multiple complex medical issues. Further recommendations to follow. A copy of dictation being forwarded to Dr. Benjamin, who is the primary care physician. MITCHELLL / IJN: [id number] / KHLOE
[2021-02-08] MEDS: IPRATROPIUM-ALBUTEROL 3 ML NEB INHALATION SCH (20:53)
[2021-02-08 21:21] LABS: Glucose,Whole Blood 120 mg/dL (75-99)
[2021-02-08] MEDS: MAGNESIUM OXIDE 400 MG TAB PO SCH (21:29)
[2021-02-08] MEDS: PANTOPRAZOLE 40 MG TABLET PO SCH (21:29)
[2021-02-08] MEDS: APIXABAN 5 MG TAB PO SCH (21:29)
[2021-02-08] MEDS: allopurinoL 100 MG TAB PO SCH (21:30)
[2021-02-08] MEDS: SERTRALINE 100 MG TAB PO SCH (21:30)
[2021-02-08] MEDS: methylPREDNISolone SOD SUCCI 40 MG/ML 1 ML VIAL IV SCH (21:30)
[2021-02-08] MEDS: ATORVASTATIN 40 MG TAB PO SCH (21:30)
[2021-02-09] MEDS: SYMBICORT 160-4.5 MCG INHALER INHALATION SCH ×3 (00:07→19:25)
[2021-02-09 06:08] LABS: Glucose,Whole Blood 151 mg/dL (75-99)
[2021-02-09] MEDS: INSULIN ASPART (NovoLOG) 100 UNIT/ML VIAL SQ SCH ×4 (06:28→20:47)
[2021-02-09] MEDS: IPRATROPIUM-ALBUTEROL 3 ML NEB INHALATION SCH ×4 (07:44→19:25)
[2021-02-09 08:41] LABS: Basophils % (A) 0 %; Eosinophils % (A) 0 %; HCT 44.3 % (39.0-53.0); Lymphocytes # (A) 0.5 k/uL (1.0-4.8); Lymphocytes % (A) 15 %; MCH 31.8 pg (25.0-35.0); MCHC 31.6 g/dL (31.0-37.0); MCV 100.5 fL (80.0-100.0); Macrocytosis Slight; Mean Platelet Volume 10.6; Monocytes # (A) 0.2 k/uL (0-1.0); Monocytes % (A) 5 %; Neutrophils # (A) 2.8 k/uL (1.3-7.7); Neutrophils % (A) 79 %; Platelet Count 123 k/uL (150-450); RBC 4.41 m/uL (4.30-5.90); RDW 15.1 % (11.5-15.5); WBC 3.6 k/uL (3.8-10.6)
[2021-02-09] MEDS: APIXABAN 5 MG TAB PO SCH ×2 (08:49→20:50)
[2021-02-09] MEDS: SERTRALINE 100 MG TAB PO SCH ×2 (08:49→20:50)
[2021-02-09] MEDS: METOPROLOL SUCCINATE (ER) 100 MG TAB.ER.24H PO SCH (08:49)
[2021-02-09] MEDS: PANTOPRAZOLE 40 MG TABLET PO SCH ×2 (08:50→20:50)
[2021-02-09] MEDS: SPIRONOLACTONE 25 MG TAB PO SCH (08:50)
[2021-02-09] MEDS: methylPREDNISolone SOD SUCCI 40 MG/ML 1 ML VIAL IV SCH ×2 (08:50→20:50)
[2021-02-09] MEDS: POTASSIUM CHLORIDE ER 10 MEQ TAB.ER.PRT PO SCH (08:50)
[2021-02-09] MEDS: allopurinoL 100 MG TAB PO SCH ×2 (08:50→20:50)
[2021-02-09] MEDS: MAGNESIUM OXIDE 400 MG TAB PO SCH ×2 (08:50→20:50)
[2021-02-09] MEDS: ASPIRIN 81 MG PO SCH (08:50)
[2021-02-09 09:02] LABS: Calcium 9.6 mg/dL (8.4-10.2); Potassium 5.3 mmol/L (3.5-5.1)
[2021-02-09 10:54] LABS: Glucose,Whole Blood 168 mg/dL (75-99)
--- NOTE | 2021-02-09 11:34 | P.PN ---
Subjective Progress Note Date: 02/09/21 HISTORY OF PRESENT ILLNESS: This is a 70-year-old male with a past medical history significant for coronary artery disease with previous PCI performed a long time ago in [place] with unknown exact details, ischemic myopathy with previous AICD implantation, chronic atrial fibrillation, hypertension, and hyperlipidemia. Patient follows in the office with Dr. Curiel. We have been asked to see the patient in consultation for . Patient examined at the bedside. Patient is somewhat of a poor historian. He states he came to the hospital because he was not feeling well. He states he has been feeling unwell for the past few days but was unable to elaborate on his symptoms. He does report having some mild shortness of breath. EKG reveals paced rhythm with underlying atrial fibrillation Chest xray mild cardiomegaly, COPD, and pulmonary artery hypertension. Some interstitial prominence could reflect progress or chronic asthma. No focal infiltrates seen. Laboratory data: WBC 3.6. Hemoglobin 14.0. Platelet count 123. Sodium 138. Potassium 5.3. BUN 43. Creatinine 1.57. Troponin 0.051. 0.060. 0.048. Most recent echocardiogram obtained in 2018 revealed ejection fraction 40% with mild MR and mild TR REVIEW OF SYSTEMS: At the time of my exam: CONSTITUTIONAL: Denies fever or chills. HEENT: Denies blurred vision, vision changes, or eye pain. Denies hemoptysis CARDIOVASCULAR: Denies chest pain. Denies orthopnea. Denies PND. Denies palpitations RESPIRATORY: Denies shortness of breath. GASTROINTESTINAL: Denies abdominal pain. Denies nausea or vomiting. HEMATOLOGIC: Denies bleeding disorders. GENITOURINARY: Denies any blood in urine. SKIN: Denies pruitis. Denies rash. PHYSICAL EXAM: VITAL SIGNS: Reviewed. GENERAL: Well-developed in no acute distress. HEENT: Head is normocephalic. Pupils are equal, round. Sclerae anicteric. Mucous membranes of the mouth are moist. Neck supple. No JVD or thyromegaly LUNGS: Respirations even and unlabored. Lungs diminished to auscultation bilaterally. HEART: Regular rate and rhythm. S1 and S2 heard. ABDOMEN: Soft. Nondistended. Nontender. EXTREMITIES: Normal range of motion. No clubbing or cyanosis. Peripheral pulses intact. No lower extremity edema NEUROLOGIC: Awake and alert. Oriented x 3. ASSESSMENT: Generalized weakness and malaise Shortness of breath Acute exacerbation of COPD Coronary artery disease with previous PCI, details unknown Chronic diastolic congestive heart failure, EF 40% History of AICD with previous EF 20% in 2013 Retention Hyperlipidemia Chronic persistent atrial fibrillation on anticoagulation with Eliquis Acute kidney injury Abnormal troponins, not suggestive of ACS, may be secondary to KERRIE PLAN: Obtain 2D echo to assess cardiac structure and function Continue home cardiac medications Continue Eliquis Patient appears euvolemic on examination. Resume home dose of atenolol and Lasix Further recommendations pending patient's course Nurse practitioner note has been reviewed by physician. Signing provider agrees with the documented findings, assessment, and plan of care. Objective - Vital Signs Vital signs: Vital Signs Temp 97.5 F L 02/09/21 08:45 Pulse 76 02/09/21 11:22 Resp 18 02/09/21 08:45 BP 112/71 02/09/21 08:45 Pulse Ox 93 L 02/09/21 08:45 Intake & Output 02/08/21 02/09/21 02/09/21 18:59 06:59 18:59 Intake Total 360 Output Total 200 Balance -200 360 Weight 94.801 kg 92.9 kg Intake: Oral 360 Output: Urine 200 Other: Voiding Method Toilet Toilet # Voids 1 - Labs CBC & Chem 7: 02/09/21 08:09 02/09/21 08:09 Labs: Abnormal Lab Results - Last 24 Hours (Table) 02/08/21 02/08/21 02/08/21 Range/Units 13:16 13:45 13:45 WBC (3.8-10.6) k/uL MCV (80.0-100.0) fL RDW 15.8 H (11.5-15.5) % Plt Count 106 L (150-450) k/uL Lymphocytes # 0.6 L (1.0-4.8) k/uL Sodium 136 L (137-145) mmol/L Potassium (3.5-5.1) mmol/L Carbon Dioxide 32 H (22-30) mmol/L BUN 37 H (9-20) mg/dL Creatinine 1.44 H (0.66-1.25) mg/dL Glucose (74-99) mg/dL POC Glucose (mg/dL) (75-99) mg/dL Troponin I 0.051 H* (0.000-0.034) ng/mL 02/08/21 02/08/21 02/08/21 Range/Units 18:31 21:19 21:21 WBC (3.8-10.6) k/uL MCV (80.0-100.0) fL RDW (11.5-15.5) % Plt Count (150-450) k/uL Lymphocytes # (1.0-4.8) k/uL Sodium (137-145) mmol/L Potassium (3.5-5.1) mmol/L Carbon Dioxide (22-30) mmol/L BUN (9-20) mg/dL Creatinine (0.66-1.25) mg/dL Glucose (74-99) mg/dL POC Glucose (mg/dL) 120 H (75-99) mg/dL Troponin I 0.060 H* 0.048 H* (0.000-0.034) ng/mL 02/09/21 02/09/21 02/09/21 Range/Units 06:07 08:09 08:09 WBC 3.6 L (3.8-10.6) k/uL MCV 100.5 H (80.0-100.0) fL RDW (11.5-15.5) % Plt Count 123 L (150-450) k/uL Lymphocytes # 0.5 L (1.0-4.8) k/uL Sodium (137-145) mmol/L Potassium 5.3 H (3.5-5.1) mmol/L Carbon Dioxide (22-30) mmol/L BUN 43 H (9-20) mg/dL Creatinine 1.57 H (0.66-1.25) mg/dL Glucose 140 H (74-99) mg/dL POC Glucose (mg/dL) 151 H (75-99) mg/dL Troponin I (0.000-0.034) ng/mL 02/09/21 Range/Units 10:53 WBC (3.8-10.6) k/uL MCV (80.0-100.0) fL RDW (11.5-15.5) % Plt Count (150-450) k/uL Lymphocytes # (1.0-4.8) k/uL Sodium (137-145) mmol/L Potassium (3.5-5.1) mmol/L Carbon Dioxide (22-30) mmol/L BUN (9-20) mg/dL Creatinine (0.66-1.25) mg/dL Glucose (74-99) mg/dL POC Glucose (mg/dL) 168 H (75-99) mg/dL Troponin I (0.000-0.034) ng/mL
--- NOTE | 2021-02-09 12:24 | P.CNPUL ---
History of Present Illness Consult date: 02/09/21 Requesting physician: Gopal Davila Reason for consult: dyspnea, pulmonary hypertension Chief complaint: dyspnea History of present illness: 70-year-old male patient with history of atrial fibrillation, CHF, previous history of CVA, with chronic dysphagia status post PEG tube placement and previo us history of aspiration pneumonia, coronary artery disea with previous intervention, ischemic cardiomyopathy status post AICD placement, chronic kidney disease stage III, depression, COPD not on home oxygen at baseline. Patient came into the hospital on 02/08/2021 for evaluation of fatigue, and shortness of breath for the past 4 days. Patient has had a poor appetite with little oral intake. He is a poor historian, he has expressive aphasia. He does not think that he had fever, he states that he was short of breath initially, which has progressed, denies chest pain, denies cough, denies lower extremity swelling. Patient was vaccinated against Covid. Covid PCR was negative, chest x-ray showed mild cardiomegaly, very arterial hypertension with some prominence that could reflect bronchitis or chronic asthma. Blood work showed normal white count of 6.1, globin of 14.8, correlation profile was within normal limits, d- dimer was negative at 0.56, sodium was 136, potassium is 4.9, CO2 is 32, BUN was 37, creatinine is 1.4, lactic acid was 1.7 troponin was 0.048, proBNP was significantly elevated at 21,400. Brain CT showed cerebral atrophy, old left temporal lobe infarct, chronic small vessel ischemia no significant change from old exam. Patient was started on empiric antibiotics in the form of azithromycin and Rocephin, Symbicort, DuoNeb nebulized treatments and IV steroids. Clinically does not look fluid overloaded. He is currently on room air, breathing comfortably, pulse ox is 93%, he is been afebrile, lung sounds are diminished, no rhonchi or wheezing were appreciated. Review of Systems All systems: negative Constitutional: Reports fatigue, Reports poor appetite, Denies chills, Denies fever Eyes: denies blurred vision, denies pain Ears, nose, mouth and throat: Denies headache, Denies sore throat Cardiovascular: Denies chest pain, Denies shortness of breath Respiratory: Reports dyspnea, Denies cough Gastrointestinal: Denies abdominal pain, Denies diarrhea, Denies nausea, Denies vomiting Musculoskeletal: Denies myalgias Integumentary: Denies pruritus, Denies rash Neurological: Reports aphasia, Reports confusion, Denies numbness, Denies weakness Psychiatric: Denies anxiety, Denies depression Endocrine: Denies fatigue, Denies weight change Past Medical History Past Medical History: Atrial Fibrillation, Heart Failure, COPD, CVA/TIA, Eye Disorder, Hearing Disorder / Deafness, Hyperlipidemia, Hypertension, Skin Disorder, Sleep Apnea/CPAP/BIPAP Additional Past Medical History / Comment(s): CVA approx 2009-speech affected and slight rt. sided weakness,cataracts, bruises easily due to coumadin,does not wear cpap,neuropathy moe. feet History of Any Multi-Drug Resistant Organisms: None Reported Past Surgical History: AICD, Heart Catheterization With Stent Additional Past Surgical History / Comment(s): AICD/Pacemaker, PEG tube placed in [address] 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 Past Drug Use History: None Reported - Past Family History Brother(s) Family Medical History: Deep Vein Thrombosis (DVT) Medications and Allergies Home Medications Medication Instructions Recorded Confirmed Type Aspirin [Adult Low Dose Aspirin EC] 81 mg PO DAILY 09/02/17 02/08/21 History Omeprazole [PriLOSEC] 20 mg PO BID 09/02/17 02/08/21 History Sertraline HCl [Zoloft] 100 mg PO BID 09/02/17 02/08/21 History allopurinoL [Zyloprim] 100 mg PO BID 09/02/17 02/08/21 History Acetaminophen-Codeine 300-30mg 1 tab PO TID PRN 04/01/19 02/08/21 History [Tylenol w/codeine #3] Rosuvastatin Calcium [Crestor] 20 mg PO HS 08/20/19 02/08/21 History Albuterol Sulfate [Albuterol 2 puff INHALATION RT-QID PRN 12/27/20 02/08/21 History Sulfate Hfa] Apixaban [Eliquis] 5 mg PO BID 12/27/20 02/08/21 History Jevity 1.5 Jakob Liquid 240 ml PO TID 12/27/20 02/08/21 History Metoprolol Succinate (ER) [Toprol 100 mg PO DAILY 12/27/20 02/08/21 History Xl] Spironolactone 25 mg PO DAILY 12/27/20 02/08/21 History lisinopriL [Zestril] 2.5 mg PO DAILY 12/27/20 02/08/21 History Fluticasone Propion/Salmeterol 1 puff INHALATION RT-BID 02/08/21 02/08/21 History [Wixela 500-50 Inhub] Furosemide [Lasix] 20 mg PO DAILY 02/08/21 02/08/21 History Ipratropium-Albuterol Nebulize 3 ml INHALATION RT-QID 02/08/21 02/08/21 History [Duoneb 0.5 mg-3 mg/3 ml Soln] Mag-Ox 420mg 420 mg PO BID 02/08/21 02/08/21 History Potassium Chloride [Klor-Con 10 ER] 10 meq PO DAILY 02/08/21 02/08/21 History Allergies Allergy/AdvReac Type Severity Reaction Status Date / Time metolazone [From Zaroxolyn] Allergy Rash/Hives Verified 02/08/21 13:34 warfarin [From Coumadin] Allergy Unknown Verified 02/08/21 13:34 fluvastatin AdvReac weakness/muscle Verified 02/08/21 13:34 pain simvastatin AdvReac muscle pain Verified 02/08/21 13:34 sulfamethoxazole AdvReac Abdominal Verified 02/08/21 13:34 [From Bactrim] Pain trimethoprim [From Bactrim] AdvReac Abdominal Verified 02/08/21 13:34 Pain Physical Exam Vitals: Vital Signs Temp Pulse Pulse Resp BP BP Pulse Ox 02/09/21 11:22 76 02/09/21 11:11 80 02/09/21 08:45 97.5 F L 79 18 112/71 93 L 02/09/21 07:58 72 02/09/21 07:45 72 11/11/21 03:25 97.6 F 66 16 107/69 92 L 02/08/21 23:52 76 18 114/69 94 L 02/08/21 21:20 97.7 F 77 18 117/74 95 02/08/21 21:03 76 02/08/21 20:53 72 02/08/21 20:42 72 17 110/60 97 02/08/21 15:54 70 02/08/21 15:43 72 16 02/08/21 13:57 20 02/08/21 13:56 70 18 111/78 97 02/08/21 12:11 98.2 F 78 18 99/63 96 Intake and Output 02/08/21 02/09/21 02/09/21 22:59 06:59 14:59 Intake Total 360 Output Total 200 Balance -200 360 Intake: Oral 360 Output: Urine 200 Other: Voiding Method Toilet Toilet # Voids 1 Weight 92.9 kg GENERAL EXAM: Alert, 70 yo male with expressive aphasia, on room aircomfortable in no apparent distress. HEAD: Normocephalic/atraumatic. EYES: Normal reaction of pupils, equal size. Conjunctiva pink, sclera white. NOSE: Clear with pink turbinates. THROAT: No erythema or exudates. NECK: No masses, no JVD, no thyroid enlargement, no adenopathy. CHEST: No chest wall deformity. Symmetrical expansion. LUNGS: diminished air entry with no crackles, wheeze, rhonchi or dullness. CVS: Regular rate and rhythm, normal S1 and S2, no gallops, no murmurs, no rubs ABDOMEN: Soft, nontender. No hepatosplenomegaly, normal bowel sounds, no guarding or rigidity.Peg tube present EXTREMITIES: No clubbing, no edema, no cyanosis, 2+ pulses and upper and lower extremities. MUSCULOSKELETAL: Muscle strength and tone normal. SPINE: No scoliosis or deformity SKIN: No rashes CENTRAL NERVOUS SYSTEM: Alert and oriented -1. Expressive aphasia, unable to fully assess orientation. No focal deficits, tone is normal in all 4 extremities. PSYCHIATRIC: Alert and oriented -1. Appropriate affect. Intact judgment and insight. Results - Laboratory Findings CBC and BMP: 02/09/21 08:09 02/09/21 08:09 PT/INR, D-dimer PT 10.8 sec (9.0-12.0) 02/08/21 13:16 INR 1.0 (<1.2) 02/08/21 13:16 D-Dimer 0.56 mg/L FEU (<0.60) 02/09/21 10:44 Abnormal lab findings: Abnormal Labs 02/08/21 02/08/21 02/08/21 13:16 13:45 13:45 WBC MCV RDW 15.8 H Plt Count 106 L Lymphocytes # 0.6 L Sodium 136 L Potassium Carbon Dioxide 32 H BUN 37 H Creatinine 1.44 H Glucose POC Glucose (mg/dL) Troponin I 0.051 H* 02/08/21 02/08/21 02/08/21 18:31 21:19 21:21 WBC MCV RDW Plt Count Lymphocytes # Sodium Potassium Carbon Dioxide BUN Creatinine Glucose POC Glucose (mg/dL) 120 H Troponin I 0.060 H* 0.048 H* 02/09/21 02/09/21 02/09/21 06:07 08:09 08:09 WBC 3.6 L MCV 100.5 H RDW Plt Count 123 L Lymphocytes # 0.5 L Sodium Potassium 5.3 H Carbon Dioxide BUN 43 H Creatinine 1.57 H Glucose 140 H POC Glucose (mg/dL) 151 H Troponin I 02/09/21 10:53 WBC MCV RDW Plt Count Lymphocytes # Sodium Potassium Carbon Dioxide BUN Creatinine Glucose POC Glucose (mg/dL) 168 H Troponin I - Diagnostic Findings Chest x-ray: report reviewed, image reviewed Assessment and Plan Plan: #1. Acute dyspnea, possibly related to mild exacerbation of COPD, and possible aspiration without pneumonia. COVID 19 PCR was negative, chest x-ray showed no acute pulmonary process #2. Generalized weakness, poor appetite #3. Limited troponins, not thought to be secondary to ACS #4. Acute kidney injury #5. Chronic dysphagia related to previous history of CVA, status post PEG tube insertion. Patient does consume food by mouth as well #6. Previous history of CVA with residual expressive aphasia and chronic dysphagia #7. Previous history of aspiration pneumonia #8. History of COPD not oxygen dependent at baseline #9. History of ischemic cardiomyopathy status post AICD implantation #10. History of atrial fibrillation on Eliquis #11. History of systolic CHF #12. Coronary artery disease with previous intervention, the details are not known to us #13. Hyperlipidemia #14. Former smoker Plan: Continue current medical treatment Continue IV steroids nebulized bronchodilators Continue empiric antibiotics Chest x-ray has been reviewed showing no acute pulmonary process Suspect intermittent aspiration without pneumonia We will obtain's speech evaluation Patient may require modified barium swallow Maintain aspiration precautions We'll continue to follow I performed a history & physical examination of the patient and discussed their management with my nurse practitioner, Shona Noe. I reviewed the nurse practitioner's note and agree with the documented findings and plan of care. Lung sounds are positive for diminished breath sounds throughout the lung tse. The findings and the impression was discussed with the patient. I attest to the documentation by the nurse practitioner. Time with Patient: Greater than 30
[2021-02-09] MEDS: FUROSEMIDE 20 MG TAB PO SCH (12:26)
[2021-02-09 16:39] LABS: Glucose,Whole Blood 131 mg/dL (75-99)
--- NOTE | 2021-02-09 18:03 | ECHOF ---
Referral Reason:lv function MEASUREMENTS -------- HEIGHT: 188.0 cm WEIGHT: 92.5 kg BP: RVIDd: 5.5 cm (< 3.3) IVSd: 1.5 cm (0.6 - 1.1) LVIDd: 4.7 cm (3.9 - 5.3) LVPWd: 1.3 cm (0.6 - 1.1) IVSs: 1.2 cm LVIDs: 4.6 cm LVPWs: 2.0 cm LAESV Index (A-L): 67.42 ml/m Ao Diam: 2.8 cm (2.0 - 3.7) AV Cusp: 0.9 cm (1.5 - 2.6) LA Diam: 4.9 cm (2.7 - 3.8) AV maxP.95 mmHg AV meanP.60 mmHg RAP: 5.00 mmHg RVSP: 47.16 mmHg TAPSE: 19.82 mm FINDINGS -------- Pacerwire seen in RV and RA. This was a technically difficult study with suboptimal views. The left ventricular size is normal. There is mild concentric left ventricular hypertrophy. There is severe global hypokinesis of LV . Overall left ventricular systolic function is severely impair ed with, an EF < 20%. The right ventricle is severely enlarged. LA is severely dilated >40 ml/m2 The right atrium is moderately enlarged. Electronic pacemaker lead seen in the right atrial cavity. 5.0mg of Lumason was utilized for enhancement of images Interatrial and interventricular septum intact. There is mild to moderate aortic valve sclerosis. There is no evidence of aortic regurgitation. T here is no evidence of aortic stenosis. Mild mitral annular calcification present. [id number] mitral regurgitation is present. Moderate tricuspid regurgitation present. There is mild to moderate pulmonary hypertension. The r ight ventricular systolic pressure, as measured by Doppler, is 47.16mmHg. The pulmonic valve was not well visualized. The aortic root size is normal. IVC Not well visulized. There is no pericardial effusion. CONCLUSIONS -------- 1. Pacerwire seen in RV and RA. 2. This was a technically difficult study with suboptimal views. 3. There is mild concentric left ventricular hypertrophy. 4. There is severe global hypokinesis of LV . 5. Overall left ventricular systolic function is severely impaired with, an EF < 20%. 6. The right ventricle is severely enlarged. 7. LA is severely dilated >40 ml/m2 8. The right atrium is moderately enlarged. 9. There is mild to moderate aortic valve sclerosis. 10. Mild mitral annular calcification present. 11. [id number] mitral regurgitation is present. 12. Moderate tricuspid regurgitation present. 13. There is mild to moderate pulmonary hypertension. LAY OUT MACHINE OPERATOR: Livia Eason RDCS
[2021-02-09 20:02] LABS: Glucose,Whole Blood 98 mg/dL (75-99)
[2021-02-09] MEDS: ATORVASTATIN 40 MG TAB PO SCH (20:50)
--- NOTE | 2021-02-09 21:13 | PN ---
PROGRESS NOTE DATE OF SERVICE: 02/09/2021 This 70-year-old gentleman who was admitted with shortness of breath and possible COPD, acute exacerbation, also has some change in mental status. The patient is mildly confused also. No chest pain. No palpitations. No fever. PHYSICAL EXAMINATION: Alert and oriented x3. Pulse 70, blood pressure 117/69, respirations 16, temperature normal, pulse ox 94% on room air. HEENT: Conjunctivae normal. NECK: No jugular venous distention. CARDIOVASCULAR: S1, S2 muffled. RESPIRATION: Breath sounds diminished at the bases. A few scattered rhonchi and crackles. ABDOMEN: Soft, nontender. NERVOUS SYSTEM: Diffusely weak. LABS: Potassium 3.6. MCV noted. Platelets are 123. Creatinine is 1.57. ASSESSMENT: 1. Chronic obstructive pulmonary disease, acute exacerbation, with acute purulent tracheobronchitis, probably early interstitial pneumonia. 2. Rule out COVID-19. 3. Change in mental status, acute metabolic encephalopathy. 4. Thrombocytopenia. 5. Hyponatremia. 6. Acute renal failure with acute tubular necrosis. 7. Possible chronic kidney disease, stage 3 baseline. 8. Troponin 0.051, indeterminate. 9. History of atrial fibrillation. 10.History of aspiration pneumonia secondary to oropharyngeal dysphagia secondary to undiagnosed neurological conditions. 11.History of congestive heart failure, ejection fraction unknown. 12.History of chronic obstructive pulmonary disease. 13.History of cerebrovascular accident, transient ischemic attack. 14.History of hard of hearing. 15.Hypertension. 16.Hyperlipidemia. 17.History of sleep apnea. 18.History of cerebrovascular accident. 19.History of AICD. 20.History of coronary artery disease, stent. 21.History of anxiety, depression, posttraumatic stress disorder. 22.History of nicotine dependence. 23.FULL CODE. RECOMMENDATIONS AND DISCUSSION: I recommend to continue current medications, continue with symptomatic treatment. Otherwise at this time repeat labs. Continue the IV fluids. Continue the rest of the medication. Monitor creatinine closely. Continue empiric antibiotics. Otherwise, I would also recommend a modified barium swallow as well as speech pathology consultation. Guarded prognosis. Further recommendations to follow. MMODL / IJN: [id number] /
[2021-02-10] MEDS: INSULIN ASPART (NovoLOG) 100 UNIT/ML VIAL SQ SCH ×4 (05:48→20:04)
[2021-02-10 05:49] LABS: Glucose,Whole Blood 93 mg/dL (75-99)
[2021-02-10] MEDS: SYMBICORT 160-4.5 MCG INHALER INHALATION SCH ×2 (08:27→19:39)
[2021-02-10] MEDS: IPRATROPIUM-ALBUTEROL 3 ML NEB INHALATION SCH ×4 (08:27→19:39)
[2021-02-10] MEDS: SERTRALINE 100 MG TAB PO SCH ×2 (09:00→20:34)
[2021-02-10] MEDS: ASPIRIN 81 MG PO SCH (09:00)
[2021-02-10] MEDS: allopurinoL 100 MG TAB PO SCH ×2 (09:00→20:34)
[2021-02-10] MEDS: MAGNESIUM OXIDE 400 MG TAB PO SCH ×2 (09:00→20:34)
[2021-02-10] MEDS: POTASSIUM CHLORIDE ER 10 MEQ TAB.ER.PRT PO SCH (09:00)
[2021-02-10] MEDS: METOPROLOL SUCCINATE (ER) 100 MG TAB.ER.24H PO SCH (09:00)
[2021-02-10] MEDS: APIXABAN 5 MG TAB PO SCH ×2 (09:00→20:34)
[2021-02-10] MEDS: methylPREDNISolone SOD SUCCI 40 MG/ML 1 ML VIAL IV SCH ×2 (09:00→20:34)
[2021-02-10] MEDS: SPIRONOLACTONE 25 MG TAB PO SCH (09:00)
[2021-02-10] MEDS: FUROSEMIDE 20 MG TAB PO SCH (09:00)
[2021-02-10] MEDS: PANTOPRAZOLE 40 MG TABLET PO SCH ×2 (09:00→20:34)
[2021-02-10 10:12] LABS: Basophils % (A) 0 %; Eosinophils % (A) 0 %; HGB 14.1 gm/dL (13.0-17.5); Hypochromasia Slight; Lymphocytes # (A) 1.2 k/uL (1.0-4.8); Lymphocytes % (A) 12 %; MCH 31.6 pg (25.0-35.0); MCHC 31.2 g/dL (31.0-37.0); MCV 101.1 fL (80.0-100.0); Macrocytosis Slight; Mean Platelet Volume 10.2; Monocytes # (A) 0.5 k/uL (0-1.0); Monocytes % (A) 4 %; Neutrophils # (A) 8.7 k/uL (1.3-7.7); Neutrophils % (A) 83 %; Platelet Count 127 k/uL (150-450); RBC 4.45 m/uL (4.30-5.90); RDW 15.1 % (11.5-15.5); WBC 10.6 k/uL (3.8-10.6)
[2021-02-10 10:37] LABS: Calcium 9.6 mg/dL (8.4-10.2); Potassium 4.7 mmol/L (3.5-5.1)
[2021-02-10 11:37] VITALS: BMI 26.1
[2021-02-10 11:42] LABS: Glucose,Whole Blood 108 mg/dL (75-99)
--- NOTE | 2021-02-10 14:06 | FL ---
EXAMINATION TYPE: FL barium swallow w video DATE OF EXAM: 02/10/2021 MODIFIED SWALLOW / DEGLUTITION STUDY CLINICAL HISTORY: Dysphagia. TECHNIQUE: Deglutition study is performed utilizing thin liquid barium, nectar thick liquid barium, barium thick pudding, and barium coated cracker. COMPARISON: None. FINDINGS: There is deep penetration with thin barium. Vallecular pooling is noted. There is transient mild penetration with nectar thick liquid barium. No definite penetration or aspiration with pudding or cracker. IMPRESSION: There is deep penetration with thin barium. Vallecular pooling is noted. There is transi ent mild penetration with nectar thick liquid barium. No definite penetration or aspiration with pudd ing or cracker. Please refer to speech therapist notes for further details if necessary.
--- NOTE | 2021-02-10 14:56 | P.PN ---
Subjective Progress Note Date: 02/10/21 Principal diagnosis: Mild exacerbation of COPD 70-year-old male patient with history of atrial fibrillation, CHF, previous history of CVA, with chronic dysphagia status post PEG tube placement and previous history of aspiration pneumonia, coronary artery disea with previous intervention, ischemic cardiomyopathy status post AICD placement, chronic kidney disease stage III, depression, COPD not on home oxygen at baseline. Patient came into the hospital on 02/08/2021 for evaluation of fatigue, and shortness of breath for the past 4 days. Patient has had a poor appetite with little oral intake. He is a poor historian, he has expressive aphasia. He does not think that he had fever, he states that he was short of breath initially, which has progressed, denies chest pain, denies cough, denies lower extremity swelling. Patient was vaccinated against Covid. Covid PCR was negative, chest x-ray showed mild cardiomegaly, very arterial hypertension with some prominence that could reflect bronchitis or chronic asthma. Blood work showed normal white count of 6.1, globin of 14.8, correlation profile was within normal limits, d- dimer was negative at 0.56, sodium was 136, potassium is 4.9, CO2 is 32, BUN was 37, creatinine is 1.4, lactic acid was 1.7 troponin was 0.048, proBNP was significantly elevated at 21,400. Brain CT showed cerebral atrophy, old left temporal lobe infarct, chronic small vessel ischemia no significant change from old exam. Patient was started on empiric antibiotics in the form of azithromycin and Rocephin, Symbicort, DuoNeb nebulized treatments and IV steroids. Clinically does not look fluid overloaded. He is currently on room air, breathing comfortably, pulse ox is 93%, he is been afebrile, lung sounds are diminished, no rhonchi or wheezing were appreciated. On 02/10/2021 patient seen in follow-up on selective care unit, he sitting up on the edge of the bed, breathing comfortably, he is on room air, his pulse ox is 96%, no fever or chills, he states his breathing has significantly improved since admission, his lung sounds are clear to auscultation, he states he feels good, he denies any cough, no congestion, no chest pain. He passed his swallow evaluation no aspiration was noted. He still has a PEG tube in place for sup plemental nutritional supplements at home, however she is tolerating oral intake. No acute events overnight. Today's labs have been reviewed, showing white blood cell, 10.6, hemoglobin of 14.1, sodium is 140, potassium is 4.7, CO2 32, BUN is 52, creatinine is 1.71. Patient was also resumed on his home dose Lasix 20 mg. All cultures have shown no growth. Patient is on Rocephin for empiric coverage, he is on bronchodilators, he is on Eliquis 5 mg twice daily, and she remains on IV steroids in the form of methylprednisolone 40 mg twice daily. Objective - Vital Signs Vital signs: Vital Signs Temp 98.5 F 02/10/21 12:29 Pulse 74 02/10/21 12:29 Resp 18 02/10/21 12:29 BP 99/68 02/10/21 12:29 Pulse Ox 96 02/10/21 12:29 Intake & Output 02/09/21 02/10/21 02/10/21 18:59 06:59 18:59 Intake Total 1420 240 Balance 1420 240 Weight 92.4 kg 92.4 kg Intake: Intake, IV Titration 100 Amount cefTRIAXone 1 gm In 100 Sodium Chloride 0.9% 50 ml @ 100 mls/hr IVPB Q24H [facility] Rx#:[id number] Oral 1320 240 Other: Voiding Method Toilet Toilet # Voids 1 - Exam GENERAL EXAM: Alert, 70 yo male with expressive aphasia, on room aircomfortable in no apparent distress. HEAD: Normocephalic/atraumatic. EYES: Normal reaction of pupils, equal size. Conjunctiva pink, sclera white. NOSE: Clear with pink turbinates. THROAT: No erythema or exudates. NECK: No masses, no JVD, no thyroid enlargement, no adenopathy. CHEST: No chest wall deformity. Symmetrical expansion. LUNGS: diminished air entry with no crackles, wheeze, rhonchi or dullness. CVS: Regular rate and rhythm, normal S1 and S2, no gallops, no murmurs, no rubs ABDOMEN: Soft, nontender. No hepatosplenomegaly, normal bowel sounds, no guarding or rigidity.Peg tube present EXTREMITIES: No clubbing, no edema, no cyanosis, 2+ pulses and upper and lower extremities. MUSCULOSKELETAL: Muscle strength and tone normal. SPINE: No scoliosis or deformity SKIN: No rashes CENTRAL NERVOUS SYSTEM: Alert and oriented -1. Expressive aphasia, unable to fully assess orientation. No focal deficits, tone is normal in all 4 extremities. PSYCHIATRIC: Alert and oriented -1. Appropriate affect. Intact judgment and insight. - Labs CBC & Chem 7: 02/10/21 09:32 02/10/21 09:32 Labs: Abnormal Lab Results - Last 24 Hours (Table) 02/09/21 02/10/21 02/10/21 Range/Units 16:15 09:32 09:32 MCV 101.1 H (80.0-100.0) fL Plt Count 127 L (150-450) k/uL Neutrophils # 8.7 H (1.3-7.7) k/uL Carbon Dioxide 32 H (22-30) mmol/L BUN 52 H (9-20) mg/dL Creatinine 1.71 H (0.66-1.25) mg/dL POC Glucose (mg/dL) 131 H (75-99) mg/dL 02/10/21 Range/Units 11:37 MCV (80.0-100.0) fL Plt Count (150-450) k/uL Neutrophils # (1.3-7.7) k/uL Carbon Dioxide (22-30) mmol/L BUN (9-20) mg/dL Creatinine (0.66-1.25) mg/dL POC Glucose (mg/dL) 108 H (75-99) mg/dL Microbiology - Last 24 Hours (Table) 02/08/21 15:40 Blood Culture - Preliminary Blood No Growth after 24 hours Assessment and Plan Plan: #1. Acute dyspnea, possibly related to mild exacerbation of COPD, and possible aspiration without pneumonia. COVID 19 PCR was negative, chest x-ray showed no acute pulmonary process. Dyspnea significantly improved. Modified barium swallow study was done on 02/10/2021 showing deep penetration with thin barium, with vallecular pooling, transient mild penetration with nectar thick liquid barium. no definite penetration or aspiration with pudding or cracker. #2. Generalized weakness, poor appetite #3. Limited troponins, not thought to be secondary to ACS #4. Acute kidney injury #5. Chronic dysphagia related to previous history of CVA, status post PEG tube insertion. Patient does consume food by mouth as well #6. Previous history of CVA with residual expressive aphasia and chronic dysphagia #7. Previous history of aspiration pneumonia #8. History of COPD not oxygen dependent at baseline #9. History of ischemic cardiomyopathy status post AICD implantation #10. History of atrial fibrillation on Eliquis #11. History of systolic CHF #12. Coronary artery disease with previous intervention, the details are not known to us #13. Hyperlipidemia #14. Former smoker Plan: Patient's breathing has significantly improved He is on room air, not requiring any oxygen Afebrile, vital signs have been stable His labs and vitals have been noted Modified barium swallow results have been noted No aspiration has been noted We'll switch the patient to oral prednisone Patient can be considered for discharge home from pulmonary perspective if cleared by cardiology Patient follow-up with Dr. Richardson in the office in 7-10 days I performed a history & physical examination of the patient and discussed their management with my nurse practitioner, Shona Noe. I reviewed the nurse practitioner's note and agree with the documented findings and plan of care. Lung sounds are positive for diminished breath sounds throughout the lung tse. The findings and the impression was discussed with the patient. I attest to the documentation by the nurse practitioner. Time with Patient: Less than 30
--- NOTE | 2021-02-10 16:01 | PN ---
PROGRESS NOTE This patient has a known case of atrial fibrillation. He has CHF, previous CVA, cardiomyopathy, status post AICD placement, and also chronic dysphagia requiring a PEG tube in the past and also COPD, on home oxygen. He was admitted to the hospital mainly with complaints of fatigue and some shortness of breath up to 5 days' duration. His echocardiogram showed severely impaired LV function. Chest x-ray showed mild cardiomegaly with arterial hypertension and evidence of some bronchitis. Patient was seen by circulation representative, who felt it was most probably related to mild exacerbation of COPD with possible mild aspiration. His proBNP is significantly elevated, which could be a chronic issue. CT scan showed brain atrophy. Today the patient seemed to be feeling better. He seemed to be less short of breath. Denies any cough, congestion or chest pain. He apparently passed a swallow evaluation with no aspiration. His white count is 10,000. Potassium is 4.7, creatinine is 1.7. Patient is also on anticoagulation. Physical examination reveals a gentleman who seems to be more comfortable. Neck is supple. Heart: S1 and S2. No significant murmurs or gallops. Lungs show diminished air entry. Patient is alert and oriented. His lab values showed normal white count, hemoglobin is 14. Creatinine is 1.71. It was 1.57 yesterday. IMPRESSION: 1. Chronic obstructive pulmonary disease exacerbation with possible pneumonia. 2. Chronic congestive heart failure with probable mild exacerbation, systolic. 3. Generalized weakness. 4. Abnormal troponins not suggestive of acute coronary syndrome. PLAN: The patient is feeling better. Will continue current management. Patient is being started on oral steroids. Will follow his electrolytes, BUN and creatinine closely. If necessary will cut back the dose of the diuretics. Prognosis is guarded. MMODL / IJN: [id number] / [facility]
[2021-02-10 16:54] LABS: Glucose,Whole Blood 138 mg/dL (75-99)
[2021-02-10 20:03] LABS: Glucose,Whole Blood 120 mg/dL (75-99)
[2021-02-10] MEDS: ATORVASTATIN 40 MG TAB PO SCH (20:34)
[2021-02-10 23:07] VITALS: RESP 18
[2021-02-11 06:19] LABS: Glucose,Whole Blood 120 mg/dL (75-99)
[2021-02-11] MEDS: INSULIN ASPART (NovoLOG) 100 UNIT/ML VIAL SQ SCH ×2 (06:20→14:31)
[2021-02-11] MEDS: SYMBICORT 160-4.5 MCG INHALER INHALATION SCH (08:18)
[2021-02-11] MEDS: IPRATROPIUM-ALBUTEROL 3 ML NEB INHALATION SCH ×3 (08:18→15:31)
[2021-02-11] MEDS: APIXABAN 5 MG TAB PO SCH (08:47)
[2021-02-11] MEDS: PANTOPRAZOLE 40 MG TABLET PO SCH (08:47)
[2021-02-11] MEDS: SERTRALINE 100 MG TAB PO SCH (08:47)
[2021-02-11] MEDS: FUROSEMIDE 20 MG TAB PO SCH (08:47)
[2021-02-11] MEDS: SPIRONOLACTONE 25 MG TAB PO SCH (08:47)
[2021-02-11] MEDS: MAGNESIUM OXIDE 400 MG TAB PO SCH (08:47)
[2021-02-11] MEDS: ASPIRIN 81 MG PO SCH (08:47)
[2021-02-11] MEDS: allopurinoL 100 MG TAB PO SCH (08:47)
[2021-02-11] MEDS: POTASSIUM CHLORIDE ER 10 MEQ TAB.ER.PRT PO SCH (08:47)
[2021-02-11] MEDS: METOPROLOL SUCCINATE (ER) 100 MG TAB.ER.24H PO SCH (08:48)
[2021-02-11] MEDS: methylPREDNISolone SOD SUCCI 40 MG/ML 1 ML VIAL IV SCH (08:48)
[2021-02-11 08:52] VITALS: TEMP 97.9
--- NOTE | 2021-02-11 11:21 | P.PN ---
Subjective Progress Note Date: 02/10/21 Principal diagnosis: Acute purulent tracheobronchitis Acute exacerbation COPD Aspiration 70-year-old male patient with history of atrial fibrillation, CHF, previous history of CVA, with chronic dysphagia status post PEG tube placement and previous history of aspiration pneumonia, coronary artery disea with previous intervention, ischemic cardiomyopathy status post AICD placement, chronic kidney disease stage III, depression, COPD not on home oxygen at baseline. Patient came into the hospital on 02/08/2021 for evaluation of fatigue, and shortness of breath for the past 4 days. Patient has had a poor appetite with little oral intake. He is a poor historian, he has expressive aphasia. He does not think that he had fever, he states that he was short of breath initially, which has progressed, denies chest pain, denies cough, denies lower extremity swelling. Patient was vaccinated against Covid. Covid PCR was negative, chest x-ray showed mild cardiomegaly, very arterial hypertension with some prominence that could reflect bronchitis or chronic asthma. Blood work showed normal white count of 6.1, globin of 14.8, correlation profile was within normal limits, d-dimer was negative at 0.56, sodium was 136, potassium is 4.9, CO2 is 32, BUN was 37, creatinine is 1.4, lactic acid was 1.7 troponin was 0.048, proBNP was significantly elevated at 21,400. Brain CT showed cerebral atrophy, old left temporal lobe infarct, chronic small vessel ischemia no significant change from old exam. Patient was started on empiric antibiotics in the form of azithromycin and Rocephin, Symbicort, DuoNeb nebulized treatments and IV steroids. Objective - Vital Signs Vital signs: Vital Signs Temp 98.4 F 02/10/21 08:55 Pulse 70 02/10/21 08:55 Resp 16 02/10/21 08:55 BP 120/65 02/10/21 08:55 Pulse Ox 95 02/10/21 08:55 Intake & Output 02/09/21 02/10/21 02/10/21 18:59 06:59 18:59 Intake Total 1420 240 Balance 1420 240 Weight 92.4 kg Intake: Intake, IV Titration 100 Amount cefTRIAXone 1 gm In 100 Sodium Chloride 0.9% 50 ml @ 100 mls/hr IVPB Q24H [facility] Rx#:[id number] Oral 1320 240 Other: Voiding Method Toilet Toilet # Voids 1 - Exam PHYSICAL EXAMINATION: GENERAL: The patient is alert and oriented x3, not in any acute distress. Well developed, well nourished. HEENT: Pupils are round and equally reacting to light. EOMI. No scleral icterus. No conjunctival pallor. Normocephalic, atraumatic. No pharyngeal erythema. No thyromegaly. CARDIOVASCULAR: S1 and S2 present. No murmurs, rubs, or gallops. PULMONARY: Chest is clear to auscultation, no wheezing or crackles. ABDOMEN: Soft, nontender, nondistended, normoactive bowel sounds. No palpable organomegaly. MUSCULOSKELETAL: No joint swelling or deformity. EXTREMITIES: No cyanosis, clubbing, or pedal edema. NEUROLOGICAL: Gross neurological examination did not reveal any focal deficits. SKIN: No rashes. - Labs CBC & Chem 7: 02/10/21 09:32 02/10/21 09:32 Labs: Abnormal Lab Results - Last 24 Hours (Table) 02/09/21 02/10/21 02/10/21 Range/Units 16:15 09:32 09:32 MCV 101.1 H (80.0-100.0) fL Plt Count 127 L (150-450) k/uL Neutrophils # 8.7 H (1.3-7.7) k/uL Carbon Dioxide 32 H (22-30) mmol/L BUN 52 H (9-20) mg/dL Creatinine 1.71 H (0.66-1.25) mg/dL POC Glucose (mg/dL) 131 H (75-99) mg/dL Microbiology - Last 24 Hours (Table) 02/08/21 15:40 Blood Culture - Preliminary Blood No Growth after 24 hours Assessment and Plan Assessment: 1. Acute exacerbation COPD - Improved; maintaining O2 saturation above 90% on room air - Pulmonary on board and planning to switch patient to oral steroids; continue with Symbicort 2 puffs twice a day; DuoNeb nebulizer treatments 4 times a day and when necessary 2. Possible aspiration without pneumonia - Scheduled for modified barium swallow this morning; patient has history of dysphagia secondary to CVA and is maintained on tube feeding; patient maintains oral intake also 3. Elevated troponin; troponin monitored did not reveal enough for trend; believed not to be secondary to ACS 4. Acute renal injury; continue with IV fluid hydration; monitor renal function and electrolytes; avoid nephrotoxins 5. CVA with chronic dysphagia; patient is status post PEG tube placement; maintains oral intake 6. Ischemic cardiomyopathy; status post AICD implantation 7. Atrial fibrillation; remains rate controlled and anticoagulated on Eliquis 8. Hyperlipidemia; Lipitor 40 mg daily at bedtime 9. Hypertension; lisinopril 2.5 mg daily; metoprolol 100 mg DVT prophylaxis; SCDs/ Eliquis CODE STATUS; full code
[2021-02-11 11:24] VITALS: BP 120/54
[2021-02-11 12:56] LABS: HCT 47.9 % (39.0-53.0); MCH 31.3 pg (25.0-35.0); MCHC 31.2 g/dL (31.0-37.0); MCV 100.1 fL (80.0-100.0); Macrocytosis Slight; Mean Platelet Volume 9.9; Platelet Count 152 k/uL (150-450); RBC 4.79 m/uL (4.30-5.90); RDW 15.1 % (11.5-15.5); WBC 9.3 k/uL (3.8-10.6)
[2021-02-11 13:10] LABS: Magnesium 2.2 mg/dL (1.6-2.3); Potassium 5.4 mmol/L (3.5-5.1)
--- NOTE | 2021-02-11 14:01 | P.PN ---
Subjective Progress Note Date: 02/11/21 HISTORY OF PRESENT ILLNESS: This is a 70-year-old male with a past medical history significant for coronary artery disease with previous PCI performed a long time ago in [place] with unknown exact details, ischemic myopathy with previous AICD implantation, chronic atrial fibrillation, hypertension, and hyperlipidemia. Patient follows in the office with Dr. Curiel. We have been asked to see the patient in consultation for . Patient examined at the bedside. Patient is somewhat of a poor historian. He states he came to the hospital because he was not feeling well. He states he has been feeling unwell for the past few days but was unable to elaborate on his symptoms. He does report having some mild shortness of breath. EKG reveals paced rhythm with underlying atrial fibrillation Chest xray mild cardiomegaly, COPD, and pulmonary artery hypertension. Some interstitial prominence could reflect progress or chronic asthma. No focal infiltrates seen. Laboratory data: WBC 3.6. Hemoglobin 14.0. Platelet count 123. Sodium 138. Potassium 5.3. BUN 43. Creatinine 1.57. Troponin 0.051. 0.060. 0.048. Most recent echocardiogram obtained in 2018 revealed ejection fraction 40% with mild MR and mild TR 02/11/2021: Patient's breathing status has been improving slowly. This morning, showed an awakens easily from sleeping but is confused. He does state that he is feeling better. CBC is unremarkable. Potassium 5.4, BUN 55 creatinine 1.41. Magnesium 2.2. Echocardiogram reveals EF of less than 20%, mild to moderate aortic valve sclerosis, mild to moderate mitral regurgitation, moderate tricuspid regurgitation, mild to moderate pulmonary hypertension. PHYSICAL EXAM: VITAL SIGNS: Reviewed. GENERAL: Well-developed in no acute distress. HEENT: Head is normocephalic. Pupils are equal, round. Sclerae anicteric. Mucous membranes of the mouth are moist. Neck supple. No JVD or thyromegaly LUNGS: Respirations even and unlabored. Lungs diminished to auscultation bilaterally. HEART: Regular rate and rhythm. S1 and S2 heard. ABDOMEN: Soft. Nondistended. Nontender. EXTREMITIES: Normal range of motion. No clubbing or cyanosis. Peripheral pulses intact. No lower extremity edema NEUROLOGIC: Awake and alert. Oriented x to person and place. ASSESSMENT: Generalized weakness and malaise Shortness of breath Acute exacerbation of COPD Coronary artery disease with previous PCI, details unknown Acute mild exacerbation of Chronic diastolic heart failure, EF 40% History of AICD with previous EF 20% in 2013 Retention Hyperlipidemia Chronic persistent atrial fibrillation on anticoagulation with Eliquis Acute kidney injury Abnormal troponins, not suggestive of ACS, may be secondary to KERRIE PLAN: Continue aspirin 81 mg daily, Lipitor 40 mg daily, Lasix 20 mg daily oral, lisinopril 2.5 mg daily, Toprol-XL 100 mg daily, Aldactone 25 mg daily Continue Eliquis Further recommendations pending patient's course Nurse practitioner note has been reviewed by physician. Signing provider agrees with the documented findings, assessment, and plan of care. Objective - Vital Signs Vital signs: Vital Signs Temp 97.9 F 02/11/21 08:50 Pulse 63 02/11/21 08:50 Resp 18 02/11/21 08:50 BP 107/53 02/11/21 08:50 Pulse Ox 98 02/11/21 08:50 Intake & Output 02/10/21 02/11/21 02/11/21 18:59 06:59 18:59 Intake Total 480 Balance 480 Weight 92.4 kg 90.7 kg Intake: Oral 480 Other: Voiding Method Toilet Toilet # Voids 2 - Labs CBC & Chem 7: 02/11/21 12:41 02/11/21 12:41 Labs: Abnormal Lab Results - Last 24 Hours (Table) 02/10/21 02/10/21 02/10/21 Range/Units 09:32 09:32 11:37 MCV 101.1 H (80.0-100.0) fL Plt Count 127 L (150-450) k/uL Neutrophils # 8.7 H (1.3-7.7) k/uL Carbon Dioxide 32 H (22-30) mmol/L BUN 52 H (9-20) mg/dL Creatinine 1.71 H (0.66-1.25) mg/dL POC Glucose (mg/dL) 108 H (75-99) mg/dL 02/10/21 02/10/21 02/11/21 Range/Units 16:26 20:02 06:18 MCV (80.0-100.0) fL Plt Count (150-450) k/uL Neutrophils # (1.3-7.7) k/uL Carbon Dioxide (22-30) mmol/L BUN (9-20) mg/dL Creatinine (0.66-1.25) mg/dL POC Glucose (mg/dL) 138 H 120 H 120 H (75-99) mg/dL Microbiology - Last 24 Hours (Table) 02/08/21 15:40 Blood Culture - Preliminary Blood No Growth after 48 hours
[2021-02-11 15:42] VITALS: PULSE 86
== END 2021-02-11 17:07 | disposition home health service (06) | DRG 190 ==
LOC: EC 12:04 → 3SCARD 15:26 → OBSVTOIN 02-11 08:16
PROVIDERS: ADMIT Hospitalist; ATTEND Hospitalist
DX: J44.1 Chronic obstructive pulmonary disease with (acute) exacerbation (principal); G93.41 Metabolic encephalopathy; N17.0 Acute kidney failure with tubular necrosis; I50.33 Acute on chronic diastolic (congestive) heart failure; E87.1 Hypo-osmolality and hyponatremia; I48.19 Other persistent atrial fibrillation; I50.22 Chronic systolic (congestive) heart failure; I13.0 Hypertensive heart and chronic kidney disease with heart failure and stage 1 through stage 4 chronic kidney disease, or unspecified chronic kidney disease; R47.01 Aphasia; D69.6 Thrombocytopenia, unspecified; E78.5 Hyperlipidemia, unspecified; E86.0 Dehydration; F17.200 Nicotine dependence, unspecified, uncomplicated; F43.10 Post-traumatic stress disorder, unspecified; G31.9 Degenerative disease of nervous system, unspecified; H91.90 Unspecified hearing loss, unspecified ear; I25.10 Atherosclerotic heart disease of native coronary artery without angina pectoris; I25.5 Ischemic cardiomyopathy; Z20.822 Contact with and (suspected) exposure to COVID-19; I27.21 Secondary pulmonary arterial hypertension; I69.391 Dysphagia following cerebral infarction; R13.10 Dysphagia, unspecified; N18.30 Chronic kidney disease, stage 3 unspecified; Z79.01 Long term (current) use of anticoagulants; Z79.51 Long term (current) use of inhaled steroids; Z79.82 Long term (current) use of aspirin; Z79.899 Other long term (current) drug therapy; Z87.01 Personal history of pneumonia (recurrent); Z93.1 Gastrostomy status; Z95.5 Presence of coronary angioplasty implant and graft; Z95.810 Presence of automatic (implantable) cardiac defibrillator; Z99.81 Dependence on supplemental oxygen; G47.30 Sleep apnea, unspecified; J20.9 Acute bronchitis, unspecified; R77.8 Other specified abnormalities of plasma proteins; J44.0 Chronic obstructive pulmonary disease with (acute) lower respiratory infection; F32.A Depression, unspecified; F41.9 Anxiety disorder, unspecified; Z88.1 Allergy status to other antibiotic agents; Z88.8 Allergy status to other drugs, medicaments and biological substances
CPT/HCPCS: 36415; 70450; 71046; 74230; 80048; 80053; 83605; 83735; 83880; 84484; 85025; 85027; 85379; 85610; 85730; 87040; 87635; 93005; 93306; 94640; 94760; 96365; 96367; 96375; 99285

== ENCOUNTER 2021-05-16 17:52 | Emergency (ER) | payer OTHER, MEDICARE ==
[2021-05-16 19:08] VITALS: BP 104/66; PULSE 72; RESP 16; TEMP 98.9
[2021-05-16] MEDS ORDERED: CLINDAMYCIN 150 MG CAP PO STA (21:59)
--- NOTE | 2021-05-16 22:04 | ED ---
General Adult HPI - General Chief complaint: Skin/Abscess/Foreign Body Stated complaint: lump on rt leg Time Seen by Provider: 05/16/21 21:47 Source: patient, family, RN notes reviewed, old records reviewed Mode of arrival: wheelchair Limitations: no limitations - History of Present Illness Initial comments: 70-year-old male presenting for evaluation of pain and swelling to the right anterior lower brown. Patient struck this on an unknown object about 12 days ago. He's had some increased pain and swelling at the site. No fevers. He is on anticoagulation. He denies any other injury. His been able to walk on this without difficulty. - Related Data Home Medications Medication Instructions Recorded Confirmed Aspirin [Adult Low Dose Aspirin EC] 81 mg PO DAILY 09/02/17 02/08/21 Omeprazole [PriLOSEC] 20 mg PO BID 09/02/17 02/08/21 Sertraline HCl [Zoloft] 100 mg PO BID 09/02/17 02/08/21 allopurinoL [Zyloprim] 100 mg PO BID 09/02/17 02/08/21 Acetaminophen-Codeine 300-30mg 1 tab PO TID PRN 04/01/19 02/08/21 [Tylenol w/codeine #3] Rosuvastatin Calcium [Crestor] 20 mg PO HS 08/20/19 02/08/21 Albuterol Sulfate [Albuterol 2 puff INHALATION RT-QID PRN 12/27/20 02/08/21 Sulfate Hfa] Apixaban [Eliquis] 5 mg PO BID 12/27/20 02/08/21 Jevity 1.5 Jakob Liquid 240 ml PO TID 12/27/20 02/08/21 Metoprolol Succinate (ER) [Toprol 100 mg PO DAILY 12/27/20 02/08/21 XL] Spironolactone 25 mg PO DAILY 12/27/20 02/08/21 lisinopriL [Zestril] 2.5 mg PO DAILY 12/27/20 02/08/21 Fluticasone Propion/Salmeterol 1 puff INHALATION RT-BID 02/08/21 02/08/21 [Wixela 500-50 Inhub] Furosemide [Lasix] 20 mg PO DAILY 02/08/21 02/08/21 Ipratropium-Albuterol Nebulize 3 ml INHALATION RT-QID 02/08/21 02/08/21 [Duoneb 0.5 mg-3 mg/3 ml Soln] Mag-Ox 420mg 420 mg PO BID 02/08/21 02/08/21 Potassium Chloride [Klor-Con 10 ER] 10 meq PO DAILY 02/08/21 02/08/21 Previous Rx's Medication Instructions Recorded Clindamycin [Cleocin] 450 mg PO TID 7 Days #42 cap 05/16/21 Allergies Allergy/AdvReac Type Severity Reaction Status Date / Time metolazone [From Zaroxolyn] Allergy Rash/Hives Verified 05/16/21 19:08 warfarin [From Coumadin] Allergy Unknown Verified 05/16/21 19:08 fluvastatin AdvReac weakness/muscle Verified 05/16/21 19:08 pain simvastatin AdvReac muscle pain Verified 05/16/21 19:08 sulfamethoxazole AdvReac Abdominal Verified 05/16/21 19:08 [From Bactrim] Pain trimethoprim [From Bactrim] AdvReac Abdominal Verified 05/16/21 19:08 Pain Review of Systems ROS Statement: Those systems with pertinent positive or pertinent negative responses have been documented in the HPI. ROS Other: All systems not noted in ROS Statement are negative. 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 sided weakness,cataracts, bruises easily due to coumadin,does not wear cpap,neuropathy moe. feet History of Any Multi-Drug Resistant Organisms: None Reported Past Surgical History: AICD, Heart Catheterization With Stent Additional Past Surgical History / Comment(s): AICD/Pacemaker, PEG tube placed in [address] Anglin in 2019 Past Anesthesia/Blood Transfusion Reactions: No Reported Reaction Date of Last Stent Placement:: unk Type of Cardiac Device: AICD Device Placement Date:: approx 2009 Past Psychological History: Anxiety, Depression, PTSD Smoking Status: Current every day smoker Past Alcohol Use History: Daily, Heavy Past Drug Use History: None Reported - Past Family History Brother(s) Family Medical History: Deep Vein Thrombosis (DVT) General Exam Limitations: no limitations General appearance: alert, in no apparent distress Head exam: Present: atraumatic, normocephalic Eye exam: Present: normal appearance, PERRL ENT exam: Present: normal exam Neck exam: Present: normal inspection. Absent: tenderness, meningismus Respiratory exam: Present: normal lung sounds bilaterally. Absent: respiratory distress, wheezes Cardiovascular Exam: Present: regular rate, normal rhythm GI/Abdominal exam: Present: soft. Absent: distended Extremities exam: Present: other (There is a 4 cm x 4 cm area of fluctuance with overlying skin changes and surrounding erythema in the right distal anterior brown.) Neurological exam: Present: alert, oriented X3, CN II-XII intact. Absent: motor sensory deficit Psychiatric exam: Present: normal affect, normal mood Course Vital Signs 05/16/21 19:06 Temperature 98.9 F Pulse Rate 72 Respiratory 16 Rate Blood Pressure 104/66 O2 Sat by Pulse 97 Oximetry Procedures - Incision & Drainage Consent Obtained: verbal consent Site: lower extremity Size (cm): 4 I&D Cleaning Method: Chloroprep Sterile Field Used?: No Scalpel Used: #11 Needle Aspiration Performed?: No Irrigation Performed?: No I&D Drainage Obtained: Blood Culture Obtained?: No Medical Decision Making - Medical Decision Making 70-year-old male with pain and swelling in the right anterior brown. Suspect abscess first infected hematoma. I did perform I&D and small amount of coagulated blood was evacuated. No significant pus. There is surrounding cellulitis. Dressing is applied and the patient is started on antibiotics. Not previously been on antibiotics. Strict return parameters are discussed included monitoring for progression of this infection, fever, any worsening or changing symptoms. Patient agreeable with plan. Disposition Clinical Impression: Infected hematoma, Cellulitis Disposition: HOME SELF-CARE Condition: Good Instructions (If sedation given, give patient instructions): Abscess Incision and Drainage (DC), Cellulitis (ED) Prescriptions: Clindamycin [Cleocin] 450 mg PO TID 7 Days #42 cap Is patient prescribed a controlled substance at d/c from ED?: No Referrals: [facility],Clinic [Primary Care Provider] - 1-2 days Time of Disposition: 22:03
== END 2021-05-16 22:11 | disposition home or self-care (01) ==
LOC: EC 17:52
DX: L03.115 Cellulitis of right lower limb (principal); M79.81 Nontraumatic hematoma of soft tissue; J44.9 Chronic obstructive pulmonary disease, unspecified; I11.0 Hypertensive heart disease with heart failure; I50.9 Heart failure, unspecified; E78.5 Hyperlipidemia, unspecified; I48.91 Unspecified atrial fibrillation; F17.200 Nicotine dependence, unspecified, uncomplicated; Z88.8 Allergy status to other drugs, medicaments and biological substances; Z88.1 Allergy status to other antibiotic agents; Z88.2 Allergy status to sulfonamides; Z86.73 Personal history of transient ischemic attack (TIA), and cerebral infarction without residual deficits; Z79.51 Long term (current) use of inhaled steroids; Z79.899 Other long term (current) drug therapy; Z79.01 Long term (current) use of anticoagulants; Z79.82 Long term (current) use of aspirin
CPT/HCPCS: 10060; 99282

== ENCOUNTER 2021-07-20 16:54 | Inpatient (IN) | payer OTHER, MEDICARE ==
--- NOTE | 2021-07-20 17:56 | XR ---
EXAMINATION: XR chest 2V DATE AND TIME: 07/20/2021 5:35 PM CLINICAL INDICATION: SOB; pain TECHNIQUE: Departmental protocol COMPARISON: 02/08/2021 FINDINGS: Cardiac pacemaker, dual lead. The hemidiaphragms are mildly elevated compared to the prior study, consistent with relatively lower lung inflation at the moment of x-ray exposure on the current study. The inflated lungs appear to be bilaterally clear. The pleural spaces are negative as seen. The cardiac silhouette is mild-moderately enlarged, unchanged. The skeletal structures and soft tissues are negative for acute findings. IMPRESSION: No definite acute radiographic process.
[2021-07-20 19:15] LABS: Albumin 3.8 g/dL (3.5-5.0); Anisocytosis Slight; Basophils % (A) 0 %; Eosinophils # (A) 0.1 k/uL (0-0.7); Eosinophils % (A) 1 %; HCT 44.2 % (39.0-53.0); Hypochromasia Moderate; Lymphocytes # (A) 0.8 k/uL (1.0-4.8); Lymphocytes % (A) 15 %; MCH 31.9 pg (25.0-35.0); MCHC 31.7 g/dL (31.0-37.0); MCV 100.7 fL (80.0-100.0); Macrocytosis Slight; Mean Platelet Volume 10.5; Monocytes # (A) 0.4 k/uL (0-1.0); Monocytes % (A) 8 %; Neutrophils # (A) 3.7 k/uL (1.3-7.7); Neutrophils % (A) 73 %; Platelet Count 122 k/uL (150-450); Potassium 4.4 mmol/L (3.5-5.1); RBC 4.39 m/uL (4.30-5.90); RDW 16.1 % (11.5-15.5); Total Bilirubin 0.7 mg/dL (0.2-1.3)
[2021-07-20 19:35] LABS: Partial Thromboplastin Time 25.4 sec (22.0-30.0); Prothrombin Time 11.2 sec (9.0-12.0)
[2021-07-20] MEDS ORDERED: IPRATROPIUM-ALBUTEROL 3 ML NEB INHALATION STA (20:45)
[2021-07-20] MEDS ORDERED: methylPREDNISolone SOD SUCCI 125 MG/2 ML VIAL IV STA (20:52)
[2021-07-20] MEDS ORDERED: NALOXONE 0.4 MG/ML 1 ML VIAL IV PRN (21:17)
--- NOTE | 2021-07-20 21:17 | ED ---
SOB HPI - General Chief Complaint: Shortness of Breath Stated Complaint: SOB Time Seen by Provider: 07/20/21 18:30 Source: patient Mode of arrival: ambulatory Limitations: no limitations - History of Present Illness Initial Comments: 71-year-old male with past medical history of A. fib, congestive heart failure, COPD presents to the emergency department with reported shortness of breath. He has had worsening of shortness of breath for the past week. He went into the [facility] clinic yesterday. Lab studies and chest x-ray were performed. He received a c all today stating that he had immediately going to the hospital as he was in congestive heart failure and had pneumonia. Patient reports that he used to have oxygen at home however this was taken away close to 5 years ago as he no longer needed it. Patient has had productive sputum which has been brown in coloration. He is supposed to take 20 mg of Lasix daily. His significant other at bedside increase this to 40 mg when she noted that his legs were swelling. He denies any sick contacts. No chest pain. No other alleviating, precipitating or modifying factors - Related Data Home Medications Medication Instructions Recorded Confirmed Aspirin [Adult Low Dose Aspirin EC] 81 mg PO DAILY 09/02/17 07/20/21 Omeprazole [PriLOSEC] 20 mg PO BID 09/02/17 07/20/21 Sertraline HCl [Zoloft] 100 mg PO BID 09/02/17 07/20/21 allopurinoL [Zyloprim] 100 mg PO BID 09/02/17 07/20/21 Acetaminophen-Codeine 300-30mg 1 tab PO TID PRN 04/01/19 07/20/21 [Tylenol w/codeine #3] Rosuvastatin Calcium [Crestor] 20 mg PO HS 08/20/19 07/20/21 Albuterol Sulfate [Albuterol 2 puff INHALATION RT-QID PRN 12/27/20 07/20/21 Sulfate Hfa] Apixaban [Eliquis] 5 mg PO BID 12/27/20 07/20/21 Jevity 1.5 Jakob Liquid 2 can PO TID 12/27/20 07/20/21 Metoprolol Succinate (ER) [Toprol 100 mg PO DAILY 12/27/20 07/20/21 XL] Spironolactone 25 mg PO DAILY 12/27/20 07/20/21 lisinopriL [Zestril] 2.5 mg PO DAILY 12/27/20 07/20/21 Ipratropium-Albuterol Nebulize 3 ml INHALATION RT-QID 02/08/21 07/20/21 [Duoneb 0.5 mg-3 mg/3 ml Soln] Mag-Ox 420mg 420 mg PO BID 02/08/21 07/20/21 Potassium Chloride [Klor-Con 10 ER] 10 meq PO DAILY 02/08/21 07/20/21 Gabapentin [Neurontin] 600 mg PO TID 07/20/21 07/20/21 Previous Rx's Medication Instructions Recorded Doxycycline [Vibramycin] 100 mg PO BID #4 cap 07/23/21 Furosemide [Lasix] 40 mg PO DAILY #30 07/23/21 Thiamine [Vitamin B-1] 100 mg PO DAILY #30 tab 07/23/21 predniSONE [Deltasone] 40 mg PO DAILY #4 tab 07/23/21 Allergies Allergy/AdvReac Type Severity Reaction Status Date / Time fluticasone Allergy Dyspnea Verified 07/20/21 21:37 [From Wixela Inhub] metolazone [From Zaroxolyn] Allergy Rash/Hives Verified 07/20/21 21:37 salmeterol Allergy Dyspnea Verified 07/20/21 21:37 [From Wixela Inhub] warfarin [From Coumadin] Allergy Unknown Verified 07/20/21 21:37 fluvastatin AdvReac weakness/muscle Verified 07/20/21 21:37 pain simvastatin AdvReac muscle pain Verified 07/20/21 21:37 sulfamethoxazole AdvReac Abdominal Verified 07/20/21 21:37 [From Bactrim] Pain trimethoprim [From Bactrim] AdvReac Abdominal Verified 07/20/21 21:37 Pain Review of Systems ROS Statement: Those systems with pertinent positive or pertinent negative responses have been documented in the HPI. ROS Other: All systems not noted in ROS Statement are negative. 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 sided weakness,cataracts, bruises easily due to coumadin,does not wear cpap,neuropathy moe. feet History of Any Multi-Drug Resistant Organisms: None Reported Past Surgical History: AICD, Heart Catheterization With Stent Additional Past Surgical History / Comment(s): AICD/Pacemaker, PEG tube placed in [address] Anglin in 2019 Past Anesthesia/Blood Transfusion Reactions: No Reported Reaction Date of Last Stent Placement:: unk Type of Cardiac Device: AICD Device Placement Date:: 2009 Past Psychological History: Anxiety, Depression, PTSD Smoking Status: Current every day smoker Past Alcohol Use History: Daily, Heavy Past Drug Use History: None Reported - Past Family History Brother(s) Family Medical History: Deep Vein Thrombosis (DVT) General Exam Limitations: no limitations General appearance: alert, in no apparent distress Head exam: Present: atraumatic, normocephalic, normal inspection Eye exam: Present: normal appearance, PERRL, EOMI. Absent: scleral icterus, conjunctival injection, periorbital swelling ENT exam: Present: normal exam, mucous membranes moist Neck exam: Present: normal inspection. Absent: tenderness, meningismus, lymphadenopathy Respiratory exam: Present: wheezes, decreased breath sounds. Absent: respiratory distress, rales, rhonchi, stridor Cardiovascular Exam: Present: regular rate, normal rhythm, normal heart sounds. Absent: systolic murmur, diastolic murmur, rubs, gallop, clicks GI/Abdominal exam: Present: soft, normal bowel sounds. Absent: distended, tenderness, guarding, rebound, rigid Extremities exam: Present: normal inspection, full ROM, normal capillary refill. Absent: tenderness, pedal edema, joint swelling, calf tenderness Back exam: Present: normal inspection Neurological exam: Present: alert, oriented X3, CN II-XII intact Psychiatric exam: Present: normal affect, normal mood Skin exam: Present: warm, dry, intact, normal color. Absent: rash Course Vital Signs 07/20/21 07/20/21 17:16 19:46 Temperature 98.1 F Pulse Rate 70 70 Respiratory 22 16 Rate Blood Pressure 99/67 106/64 O2 Sat by Pulse 94 L 98 Oximetry Medical Decision Making - Medical Decision Making Upon arrival patient is placed into room 16. He does have conversational dyspnea and audible wheezing. IV is established laboratory studies are conducted. BNP is 25,000. Chest x-rays performed which demonstrates no acute process. He was given a dose of albuterol, Solu-Medrol, Rocephin, azithromycin and Lasix. Recommended admission for cardiology and pulmonology consultation. Patient did agree to this. Spoke with Dr. Kathleen who agreed to admit the patient. Patient taken to the floor in stable condition - Lab Data Result diagrams: 07/21/21 06:56 07/21/21 06:56 Lab Results 07/20/21 07/20/21 07/20/21 Range/Units 18:31 18:31 18:31 WBC 5.0 (3.8-10.6) k/uL RBC 4.39 (4.30-5.90) m/uL Hgb 14.0 (13.0-17.5) gm/dL Hct 44.2 (39.0-53.0) % MCV 100.7 H (80.0-100.0) fL MCH 31.9 (25.0-35.0) pg MCHC 31.7 (31.0-37.0) g/dL RDW 16.1 H (11.5-15.5) % Plt Count 122 L (150-450) k/uL Plt Count Comment MPV 10.5 Immature Gran % (Auto) % Absolute Nucleated RBC (0.00-0.00) X 10*3/uL Neutrophils % 73 % Lymphocytes % 15 % Monocytes % 8 % Eosinophils % 1 % Basophils % 0 % Immature Gran # (0.00-0.04) X 10*3/uL Neutrophils # 3.7 (1.3-7.7) k/uL Lymphocytes # 0.8 L (1.0-4.8) k/uL Monocytes # 0.4 (0-1.0) k/uL Eosinophils # 0.1 (0-0.7) k/uL Basophils # 0.0 (0-0.2) k/uL NRBC/100 WBC Diff (0.0-0.0) /100 WBCS Hypochromasia Moderate Anisocytosis Slight Macrocytosis Slight PT (9.0-12.0) sec INR (<1.2) APTT (22.0-30.0) sec Sodium 140 (137-145) mmol/L Potassium 4.4 (3.5-5.1) mmol/L Chloride 98 (98-107) mmol/L Carbon Dioxide 35 H (22-30) mmol/L Anion Gap 7 mmol/L BUN 42 H (9-20) mg/dL Creatinine 1.60 H (0.66-1.25) mg/dL Est GFR (CKD-EPI)AfAm 49 (>60 ml/min/1.73 sqM) Est GFR (CKD-EPI)NonAf 42 (>60 ml/min/1.73 sqM) BUN/Creatinine Ratio (12.00-20.00) Ratio Glucose 87 (74-99) mg/dL Plasma Lactic Acid Marlon (0.7-2.0) mmol/L Calcium 9.0 (8.4-10.2) mg/dL Total Bilirubin 0.7 (0.2-1.3) mg/dL AST 41 (17-59) U/L ALT 22 (4-49) U/L Alkaline Phosphatase 112 (38-126) U/L Troponin I 0.031 (0.000-0.034) ng/mL NT-Pro-B Natriuret Pep pg/mL Total Protein 7.0 (6.3-8.2) g/dL Albumin 3.8 (3.5-5.0) g/dL Globulin (1.6-3.3) g/dL Albumin/Globulin Ratio (1.60-3.17) g/dL 07/20/21 07/20/21 07/20/21 Range/Units 18:31 18:31 18:31 WBC (3.8-10.6) k/uL RBC (4.30-5.90) m/uL Hgb (13.0-17.5) gm/dL Hct (39.0-53.0) % MCV (80.0-100.0) fL MCH (25.0-35.0) pg MCHC (31.0-37.0) g/dL RDW (11.5-15.5) % Plt Count (150-450) k/uL Plt Count Comment MPV Immature Gran % (Auto) % Absolute Nucleated RBC (0.00-0.00) X 10*3/uL Neutrophils % % Lymphocytes % % Monocytes % % Eosinophils % % Basophils % % Immature Gran # (0.00-0.04) X 10*3/uL Neutrophils # (1.3-7.7) k/uL Lymphocytes # (1.0-4.8) k/uL Monocytes # (0-1.0) k/uL Eosinophils # (0-0.7) k/uL Basophils # (0-0.2) k/uL NRBC/100 WBC Diff (0.0-0.0) /100 WBCS Hypochromasia Anisocytosis Macrocytosis PT 11.2 (9.0-12.0) sec INR 1.0 (<1.2) APTT 25.4 (22.0-30.0) sec Sodium (137-145) mmol/L Potassium (3.5-5.1) mmol/L Chloride (98-107) mmol/L Carbon Dioxide (22-30) mmol/L Anion Gap mmol/L BUN (9-20) mg/dL Creatinine (0.66-1.25) mg/dL Est GFR (CKD-EPI)AfAm (>60 ml/min/1.73 sqM) Est GFR (CKD-EPI)NonAf (>60 ml/min/1.73 sqM) BUN/Creatinine Ratio (12.00-20.00) Ratio Glucose (74-99) mg/dL Plasma Lactic Acid Marlon 1.5 (0.7-2.0) mmol/L Calcium (8.4-10.2) mg/dL Total Bilirubin (0.2-1.3) mg/dL AST (17-59) U/L ALT (4-49) U/L Alkaline Phosphatase (38-126) U/L Troponin I (0.000-0.034) ng/mL NT-Pro-B Natriuret Pep 34636 pg/mL Total Protein (6.3-8.2) g/dL Albumin (3.5-5.0) g/dL Globulin (1.6-3.3) g/dL Albumin/Globulin Ratio (1.60-3.17) g/dL 07/21/21 07/21/21 Range/Units 06:56 06:56 WBC 5.76 (3.8-10.6) k/uL RBC 3.99 L (4.30-5.90) m/uL Hgb 12.0 L (13.0-17.5) gm/dL Hct 39.1 L (39.0-53.0) % MCV 98.0 H (80.0-100.0) fL MCH 30.1 (25.0-35.0) pg MCHC 30.7 L (31.0-37.0) g/dL RDW 15.9 H (11.5-15.5) % Plt Count 100 L (150-450) k/uL Plt Count Comment DECREASED A MPV 13.5 H Immature Gran % (Auto) 0.5 % Absolute Nucleated RBC 0 (0.00-0.00) X 10*3/uL Neutrophils % 91.1 % Lymphocytes % 6.3 % Monocytes % 1.7 % Eosinophils % 0.2 % Basophils % 0.2 % Immature Gran # 0.03 (0.00-0.04) X 10*3/uL Neutrophils # 5.25 (1.3-7.7) k/uL Lymphocytes # 0.36 L (1.0-4.8) k/uL Monocytes # 0.10 L (0-1.0) k/uL Eosinophils # 0.01 L (0-0.7) k/uL Basophils # 0.01 (0-0.2) k/uL NRBC/100 WBC Diff 0 (0.0-0.0) /100 WBCS Hypochromasia Anisocytosis Macrocytosis PT (9.0-12.0) sec INR (<1.2) APTT (22.0-30.0) sec Sodium 139 (137-145) mmol/L Potassium 5.4 (3.5-5.1) mmol/L Chloride 101 (98-107) mmol/L Carbon Dioxide 30.1 H (22-30) mmol/L Anion Gap 7.90 L mmol/L BUN 39.0 H (9-20) mg/dL Creatinine 1.6 H (0.66-1.25) mg/dL Est GFR (CKD-EPI)AfAm 48.8 L (>60 ml/min/1.73 sqM) Est GFR (CKD-EPI)NonAf 42.1 L (>60 ml/min/1.73 sqM) BUN/Creatinine Ratio 24.38 H (12.00-20.00) Ratio Glucose 135 H (74-99) mg/dL Plasma Lactic Acid Marlon (0.7-2.0) mmol/L Calcium 9.1 (8.4-10.2) mg/dL Total Bilirubin 0.50 (0.2-1.3) mg/dL AST 32 (17-59) U/L ALT 21 (4-49) U/L Alkaline Phosphatase 110 (38-126) U/L Troponin I (0.000-0.034) ng/mL NT-Pro-B Natriuret Pep pg/mL Total Protein 6.2 (6.3-8.2) g/dL Albumin 3.7 L (3.5-5.0) g/dL Globulin 2.5 (1.6-3.3) g/dL Albumin/Globulin Ratio 1.48 L (1.60-3.17) g/dL - EKG Data EKG Comments: EKG demonstrates an electronic ventricular pacemaker with a rate of 73. QRS 168. QTC of 476. Pacemaker captures properly. No acute ST segment elevations Disposition Clinical Impression: COPD exacerbation, Acute encephalopathy, CAP (community acquired pneumonia), CHF (congestive heart failure) Disposition: ADMITTED IP TO THIS HOSP Condition: Good Is patient prescribed a controlled substance at d/c from ED?: No Decision to Admit Reason: Admit from EC Decision Date: 07/20/21 Decision Time: 21:17
[2021-07-20] MEDS ORDERED: cefTRIAXone IN SWFI 1,000 MG/10 ML SYRINGE IVP STA (21:19)
[2021-07-20] MEDS ORDERED: Acetaminophen-Codeine 300-30mg TAB PO PRN (22:54)
[2021-07-21] MEDS ORDERED: allopurinoL 100 MG TAB PO ONE (00:15)
[2021-07-21] MEDS ORDERED: APIXABAN 5 MG TAB PO ONE (00:15)
[2021-07-21] MEDS ORDERED: AZITHROMYCIN 500 MG in SODIUM CHLORIDE 0.9% 250 ML IVPB STA (00:56)
[2021-07-21] MEDS ORDERED: FUROSEMIDE 10 MG/ML 10 ML VIAL IV STA (00:58)
[2021-07-21] MEDS: ATORVASTATIN 40 MG TAB PO SCH ×2 (01:29→19:51)
[2021-07-21] MEDS: SERTRALINE 100 MG TAB PO SCH ×3 (01:29→19:56)
[2021-07-21] MEDS: PANTOPRAZOLE 40 MG TABLET PO SCH ×2 (01:29→19:51)
[2021-07-21] MEDS: methylPREDNISolone SOD SUCCI 125 MG/2 ML VIAL IV SCH ×4 (01:34→23:46)
[2021-07-21] MEDS ORDERED: IPRATROPIUM-ALBUTEROL 3 ML NEB INHALATION PRN (02:48)
--- NOTE | 2021-07-21 02:55 | P.HPIM ---
History of Present Illness H&P Date: 07/20/21 Chief Complaint: shortness of breath 71-year-old male with congestive heart failure most recent left ventricularejection fraction less than 20%on February 19. Patient unable to provide any meaningful history at this point he seems to be pleasantly confused not reliable with his answers. History obtained by reviewing medical records Seems like patient has been having some worsening trouble breathing and wheezing over the past week he eventually went to see his doctor who upon further testing noted that the patient was in acute congestive heart failure exacerbation for which recommended the patient goes to the hospital for evaluation Workup in the ED chest x-ray showed no acute pathology. Work showed acute on chronic kidney disease, elevated proBNP, There is no report of fevers or chills no report of chest pain howeverthere is report of worsening cough with productive brownish sputum Review of Systems ROS unobtainable: due to mental status Past Medical History Past Medical History: Atrial Fibrillation, Heart Failure, COPD, CVA/TIA, Eye Disorder, Hearing Disorder / Deafness, Hyperlipidemia, Hypertension, Skin Disorder, Sleep Apnea/CPAP/BIPAP Additional Past Medical History / Comment(s): CVA approx 2009-speech affected and slight rt. sided weakness,cataracts, bruises easily due to coumadin,does not wear cpap,neuropathy moe. feet History of Any Multi-Drug Resistant Organisms: None Reported Past Surgical History: AICD, Heart Catheterization With Stent Additional Past Surgical History / Comment(s): AICD/Pacemaker, PEG tube placed in [address] Anglin in 2019 Past Anesthesia/Blood Transfusion Reactions: No Reported Reaction Date of Last Stent Placement:: unk Type of Cardiac Device: AICD Device Placement Date:: 2009 Past Psychological History: Anxiety, Depression, PTSD Smoking Status: Current every day smoker Past Alcohol Use History: Daily, Heavy Past Drug Use History: None Reported - Past Family History Brother(s) Family Medical History: Deep Vein Thrombosis (DVT) Medications and Allergies Home Medications Medication Instructions Recorded Confirmed Type Aspirin [Adult Low Dose Aspirin EC] 81 mg PO DAILY 09/02/17 07/20/21 History Omeprazole [PriLOSEC] 20 mg PO BID 09/02/17 07/20/21 History Sertraline HCl [Zoloft] 100 mg PO BID 09/02/17 07/20/21 History allopurinoL [Zyloprim] 100 mg PO BID 09/02/17 07/20/21 History Acetaminophen-Codeine 300-30mg 1 tab PO TID PRN 04/01/19 07/20/21 History [Tylenol w/codeine #3] Rosuvastatin Calcium [Crestor] 20 mg PO HS 08/20/19 07/20/21 History Albuterol Sulfate [Albuterol 2 puff INHALATION RT-QID PRN 12/27/20 07/20/21 History Sulfate Hfa] Apixaban [Eliquis] 5 mg PO BID 12/27/20 07/20/21 History Jevity 1.5 Jakob Liquid 2 can PO TID 12/27/20 07/20/21 History Metoprolol Succinate (ER) [Toprol 100 mg PO DAILY 12/27/20 07/20/21 History XL] Spironolactone 25 mg PO DAILY 12/27/20 07/20/21 History lisinopriL [Zestril] 2.5 mg PO DAILY 12/27/20 07/20/21 History Furosemide [Lasix] 20 mg PO DAILY 02/08/21 07/20/21 History Ipratropium-Albuterol Nebulize 3 ml INHALATION RT-QID 02/08/21 07/20/21 History [Duoneb 0.5 mg-3 mg/3 ml Soln] Mag-Ox 420mg 420 mg PO BID 02/08/21 07/20/21 History Potassium Chloride [Klor-Con 10 ER] 10 meq PO DAILY 02/08/21 07/20/21 History Gabapentin [Neurontin] 600 mg PO TID 07/20/21 07/20/21 History Allergies Allergy/AdvReac Type Severity Reaction Status Date / Time fluticasone Allergy Dyspnea Verified 07/20/21 21:37 [From Wixela Inhub] metolazone [From Zaroxolyn] Allergy Rash/Hives Verified 07/20/21 21:37 salmeterol Allergy Dyspnea Verified 07/20/21 21:37 [From Wixela Inhub] warfarin [From Coumadin] Allergy Unknown Verified 07/20/21 21:37 fluvastatin AdvReac weakness/muscle Verified 07/20/21 21:37 pain simvastatin AdvReac muscle pain Verified 07/20/21 21:37 sulfamethoxazole AdvReac Abdominal Verified 07/20/21 21:37 [From Bactrim] Pain trimethoprim [From Bactrim] AdvReac Abdominal Verified 07/20/21 21:37 Pain Physical Exam Vitals: Vital Signs Temp Pulse Pulse Resp BP BP Pulse Ox 07/21/21 02:00 98.3 F 70 18 100/60 97 07/21/21 01:39 18 07/20/21 19:46 70 16 106/64 98 07/20/21 17:16 98.1 F 70 22 99/67 94 L Intake and Output 07/20/21 07/20/21 07/21/21 14:59 22:59 06:59 Other: # Voids 1 Weight 94.801 kg Constitutional: No acute distress, pleasant cooperative confused Eyes: Anicteric sclerae, moist conjunctiva, Pupils equal round reactive to light ENMT: NC/AT Neck: Supple, no masses, or JVD No carotid bruits No thyromegaly Lungs: decreased breath sounds with diffuse expiratory wheezing with prolonged expiratory phase Clear to percussion Normal respiratory effort, no accessory muscle use Cardiovascular: Heart regular in rate and rhythm, No murmurs, gallops, or rubs trace bilateral peripheral edema Abdominal: Soft,PEG tube in place insertion site looks clean and dry and intact Nontender, no guarding, rebound or rigidity Abdomen moving with respiration Normoactive bowel sounds No hepatomegaly, No splenomegaly No palpable mass periumbilical hernia Skin: right leg ulcer with black eschar base, otherwiseNormal temperature, tone, texture, turgor Extremities: No digital cyanosis No clubbing Pedal pulses weekand symmetrical, capillary refill immediate Radial pulses intact and symmetrical No calf tenderness Psychiatric: Alert and oriented to person only Neuro Muscles Strength 4/5 in all 4 extremities Sensation to light touch grossly present throughout Cranial nerves II-XII grossly intact No focal sensory deficits Lymphatics: no palpable cervical or supraclavicular , or inguinal lymph nodes Results CBC & Chem 7: 07/20/21 18:31 07/20/21 18:31 Labs: Abnormal Lab Results - Last 24 Hours (Table) 07/20/21 07/20/21 Range/Units 18:31 18:31 MCV 100.7 H (80.0-100.0) fL RDW 16.1 H (11.5-15.5) % Plt Count 122 L (150-450) k/uL Lymphocytes # 0.8 L (1.0-4.8) k/uL Carbon Dioxide 35 H (22-30) mmol/L BUN 42 H (9-20) mg/dL Creatinine 1.60 H (0.66-1.25) mg/dL Assessment and Plan Assessment: acute COPD exacerbation Chronic hypoxic respiratory failure Chronic systolic CHF, most recent left ventricular ejection fraction <20%, 02/19 history of A. fib status post pacemaker Acute metabolic encephalopathy Patient was initiated on IV Lasix for diuresisin the ED I will switch him to by mouth Continue with home cardiac medications, hold lisinopril due to worsening renal function Initiate COPD pathway with IV systemic steroids, doxycycline twice a day, inhalers and nebulizers as needed Supplemental oxygen as needed Supportive care Continue with a liquids for A. fib Continue with metoprolol continue with aspirin and statin Continue with spironolactone Cardiology consult Patient is full code DVT prophylaxis on Elequis for A. fib Anticipated length of stay more than 2 midnights
[2021-07-21] MEDS ORDERED: MAGNESIUM OXIDE 400 MG TAB PO SCH (07:00)
[2021-07-21] MEDS: ASPIRIN 81 MG PO SCH (08:36)
[2021-07-21] MEDS: FUROSEMIDE 40 MG TAB PO SCH ×2 (08:37→18:20)
[2021-07-21] MEDS: METOPROLOL SUCCINATE (ER) 100 MG TAB.ER.24H PO SCH (08:37)
[2021-07-21] MEDS: allopurinoL 100 MG TAB PO SCH ×2 (08:37→19:56)
[2021-07-21] MEDS: APIXABAN 5 MG TAB PO SCH ×2 (08:37→19:52)
[2021-07-21] MEDS ORDERED: POTASSIUM CHLORIDE ER 10 MEQ TAB.ER.PRT PO SCH (09:00)
[2021-07-21] MEDS ORDERED: FUROSEMIDE 10 MG/ML 4 ML VIAL IV SCH (09:00)
[2021-07-21] MEDS ORDERED: NON FORMULARY DRUG (Jevity 1.5 Cal Liquid 1,000 ML Ml) PO SCH (09:00)
[2021-07-21] MEDS ORDERED: GABAPENTIN 300 MG CAP PO SCH (09:00)
[2021-07-21] MEDS ORDERED: SPIRONOLACTONE 25 MG TAB PO SCH (09:00)
[2021-07-21 09:32] LABS: African American GFR (CKD) 48.8 (60.0-200.0); Albumin 3.7 g/dL (3.8-4.9); Albumin/Globulin Ratio 1.48 (1.60-3.17); Anion Gap 7.9 mmol/L (10.00-18.00); BUN/Creat Ratio 24.38 Ratio (12.00-20.00); Calcium 9.1 mg/dL (8.7-10.3); Carbon Dioxide 30.1 mmol/L (20.0-27.5); Globulin 2.5 g/dL (1.6-3.3); Non-African American GFR(CKD) 42.1 (60.0-200.0); Potassium 5.4 mmol/L (3.5-5.5); Total Bilirubin 0.5 mg/dL (0.30-1.20); Total Protein 6.2 g/dL (6.2-8.2)
[2021-07-21 09:45] LABS: HCT 39.1 % (39.6-50.0); MCH 30.1 pg (27.0-32.0); MCHC 30.7 g/dL (32.0-37.0); Mean Platelet Volume 13.5 fL (9.5-12.2); NRBC Per 100 WBC 0 /100 WBCS (0.0-0.0); Platelet Count 100 X 10*3/uL (140-440); RBC 3.99 X 10*6/uL (4.40-5.60); RDW 15.9 % (11.5-14.5); WBC 5.76 X 10*3/uL (4.50-10.00)
--- NOTE | 2021-07-21 09:55 | P.CRDCN ---
History of Present Illness History of present illness: This is a 70-year-old male with a past medical history significant for coronary artery disease with previous PCI performed a long time ago in [place] with unknown exact details, ischemic myopathy with previous AICD implantation, permanent atrial fibrillation, hypertension, and hyperlipidemia. Patient followed in the office with Dr. Curiel in 2019 has not followed up in the office. We have been asked to see the patient in consultation for congestive heart failure. Patient examined at the bedside. Patient is a poor historian. He states he came to the hospital because he was short of breath. He does state taking a deep breath worsening the pain in his throat. He is unable to describe specifics. He is alert, no acute distress. He is oriented to person only. He denies any chest pain, palpitations, lightheadedness, or dizziness. Apparently patient went to an outpatient clinic and chest xray was performed and patient was told to go to the hospital. DIAGNOSTICS: EKG reveals paced rhythm with underlying atrial fibrillation HR 73 Chest xray COPD, no acute heart failure, cardiomegaly. Laboratory data: Troponin negative, proBNP 25,000, WBC 5.7, hemoglobin 12, platelets 100, sodium 139, potassium 4.5, BUN 39, serum creatinine 1.6 01/2021 Echocardiogram reveals EF of less than 20%, mild to moderate aortic valve sclerosis, mild to moderate mitral regurgitation, moderate tricuspid regurgitation, mild to moderate pulmonary hypertension. REVIEW OF SYSTEMS: At the time of my exam: CONSTITUTIONAL: Denies fever or chills. HEENT: Denies blurred vision, vision changes, or eye pain. Denies hemoptysis CARDIOVASCULAR: Denies chest pain. Denies orthopnea. Denies PND. Denies pal pitations RESPIRATORY: Denies shortness of breath. GASTROINTESTINAL: Denies abdominal pain. Denies nausea or vomiting. HEMATOLOGIC: Denies bleeding disorders. GENITOURINARY: Denies any blood in urine. SKIN: Denies pruitis. Denies rash. PHYSICAL EXAM: VITAL SIGNS: Reviewed. GENERAL: Well-developed in no acute distress. HEENT: Head is normocephalic. Pupils are equal, round. Sclerae anicteric. Mucous membranes of the mouth are moist. Neck supple. No JVD or thyromegaly LUNGS: Respirations even and unlabored. Lungs diminished to auscultation bilaterally. HEART: Regular rate and rhythm. S1 and S2 heard. ABDOMEN: Soft. Nondistended. Nontender. EXTREMITIES: Normal range of motion. No clubbing or cyanosis. Peripheral pulses intact. No lower extremity edema NEUROLOGIC: Awake and alert. Oriented x 1, to person only ASSESSMENT: Shortness of breath Acute exacerbation of COPD Coronary artery disease with previous PCI, details unknown Chronic heart failure with reduced ejection fraction EF 20% History of AICD Hyperlipidemia Permanent atrial fibrillation on anticoagulation with Eliquis Chronic kidney disease PLAN: Patient does not appear to be in acute heart failure on exam, would continue PO Lasix Interrogate patient's device Continue home cardiac medications Continue Eliquis Patient appears euvolemic on examination. Further recommendations pending patient's course Nurse practitioner note has been reviewed by physician. Signing provider agrees with the documented findings, assessment, and plan of care. 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 sided weakness,cataracts, bruises easily due to coumadin,does not wear cpap,neuropathy moe. feet History of Any Multi-Drug Resistant Organisms: None Reported Past Surgical History: AICD, Heart Catheterization With Stent Additional Past Surgical History / Comment(s): AICD/Pacemaker, PEG tube placed in [address] Anglin in 2019 Past Anesthesia/Blood Transfusion Reactions: No Reported Reaction Date of Last Stent Placement:: unk Type of Cardiac Device: AICD Device Placement Date:: 2009 Past Psychological History: Anxiety, Depression, PTSD Smoking Status: Current every day smoker Past Alcohol Use History: Daily, Heavy Past Drug Use History: None Reported - Past Family History Brother(s) Family Medical History: Deep Vein Thrombosis (DVT) Medications and Allergies Home Medications Medication Instructions Recorded Confirmed Type Aspirin [Adult Low Dose Aspirin EC] 81 mg PO DAILY 09/02/17 07/20/21 History Omeprazole [PriLOSEC] 20 mg PO BID 09/02/17 07/20/21 History Sertraline HCl [Zoloft] 100 mg PO BID 09/02/17 07/20/21 History allopurinoL [Zyloprim] 100 mg PO BID 09/02/17 07/20/21 History Acetaminophen-Codeine 300-30mg 1 tab PO TID PRN 04/01/19 07/20/21 History [Tylenol w/codeine #3] Rosuvastatin Calcium [Crestor] 20 mg PO HS 08/20/19 07/20/21 History Albuterol Sulfate [Albuterol 2 puff INHALATION RT-QID PRN 12/27/20 07/20/21 History Sulfate Hfa] Apixaban [Eliquis] 5 mg PO BID 12/27/20 07/20/21 History Jevity 1.5 Jakob Liquid 2 can PO TID 12/27/20 07/20/21 History Metoprolol Succinate (ER) [Toprol 100 mg PO DAILY 12/27/20 07/20/21 History XL] Spironolactone 25 mg PO DAILY 12/27/20 07/20/21 History lisinopriL [Zestril] 2.5 mg PO DAILY 12/27/20 07/20/21 History Furosemide [Lasix] 20 mg PO DAILY 02/08/21 07/20/21 History Ipratropium-Albuterol Nebulize 3 ml INHALATION RT-QID 02/08/21 07/20/21 History [Duoneb 0.5 mg-3 mg/3 ml Soln] Mag-Ox 420mg 420 mg PO BID 02/08/21 07/20/21 History Potassium Chloride [Klor-Con 10 ER] 10 meq PO DAILY 02/08/21 07/20/21 History Gabapentin [Neurontin] 600 mg PO TID 07/20/21 07/20/21 History Allergies Allergy/AdvReac Type Severity Reaction Status Date / Time fluticasone Allergy Dyspnea Verified 07/20/21 21:37 [From Wixela Inhub] metolazone [From Zaroxolyn] Allergy Rash/Hives Verified 07/20/21 21:37 salmeterol Allergy Dyspnea Verified 07/20/21 21:37 [From Wixela Inhub] warfarin [From Coumadin] Allergy Unknown Verified 07/20/21 21:37 fluvastatin AdvReac weakness/muscle Verified 07/20/21 21:37 pain simvastatin AdvReac muscle pain Verified 07/20/21 21:37 sulfamethoxazole AdvReac Abdominal Verified 07/20/21 21:37 [From Bactrim] Pain trimethoprim [From Bactrim] AdvReac Abdominal Verified 07/20/21 21:37 Pain Physical Exam Vitals: Vital Signs Temp Pulse Pulse Resp BP BP Pulse Ox 07/21/21 02:00 98.3 F 70 18 100/60 97 07/21/21 01:39 18 07/20/21 19:46 70 16 106/64 98 07/20/21 17:16 98.1 F 70 22 99/67 94 L Intake and Output 07/20/21 07/21/21 07/21/21 22:59 06:59 14:59 Other: # Voids 1 1 Weight 94.801 kg Results 07/21/21 06:56 07/21/21 06:56 Cardiac Enzymes 07/20/21 07/20/21 Range/Units 18:31 18:31 AST 41 (17-59) U/L Troponin I 0.031 (0.000-0.034) ng/mL Coagulation 07/20/21 Range/Units 18:31 PT 11.2 (9.0-12.0) sec APTT 25.4 (22.0-30.0) sec CBC 07/20/21 Range/Units 18:31 WBC 5.0 (3.8-10.6) k/uL RBC 4.39 (4.30-5.90) m/uL Hgb 14.0 (13.0-17.5) gm/dL Hct 44.2 (39.0-53.0) % Plt Count 122 L (150-450) k/uL Comprehensive Metabolic Panel 07/20/21 Range/Units 18:31 Sodium 140 (137-145) mmol/L Potassium 4.4 (3.5-5.1) mmol/L Chloride 98 (98-107) mmol/L Carbon Dioxide 35 H (22-30) mmol/L BUN 42 H (9-20) mg/dL Creatinine 1.60 H (0.66-1.25) mg/dL Glucose 87 (74-99) mg/dL Calcium 9.0 (8.4-10.2) mg/dL AST 41 (17-59) U/L ALT 22 (4-49) U/L Alkaline Phosphatase 112 (38-126) U/L Total Protein 7.0 (6.3-8.2) g/dL Albumin 3.8 (3.5-5.0) g/dL Current Medications Generic Name Dose Route Start Last Admin Trade Name Freq PRN Reason Stop Dose Admin Acetaminophen/Codeine Phosphate 1 each 07/20/21 22:54 Acetaminophen-Codeine 300-30mg Tab PO TID PRN Pain Albuterol/Ipratropium 3 ml 07/21/21 02:48 Ipratropium-Albuterol 3 Ml Neb INHALATION RT-Q2H PRN Shortness Of Breath Or Wheezing Allopurinol 100 mg 07/21/21 09:00 Allopurinol 100 Mg Tab PO BID [facility] Apixaban 5 mg 07/21/21 09:00 Apixaban 5 Mg Tab PO BID [facility] Protocol Aspirin 81 mg 07/21/21 09:00 Aspirin 81 Mg PO DAILY [facility] Atorvastatin Calcium 40 mg 07/21/21 00:30 07/21/21 01:29 Atorvastatin 40 Mg Tab PO 40 mg HS [facility] Administration Doxycycline Monohydrate 100 mg 07/21/21 09:00 Doxycycline 100 Mg Cap PO BID [facility] Protocol Furosemide 40 mg 07/21/21 09:00 Furosemide 40 Mg Tab PO BID@0900,1600 [facility] Gabapentin 600 mg 07/21/21 09:00 Gabapentin 300 Mg Cap PO TID [facility] Magnesium Oxide 400 mg 07/21/21 07:00 Magnesium Oxide 400 Mg Tab PO BID@0700,1900 [facility] Methylprednisolone Sodium Succinate 40 mg 07/21/21 00:30 07/21/21 01:34 Methylprednisolone Sod Succi 125 Mg/2 Ml Vial IV 40 mg Q8HR [facility] Administration Metoprolol Succinate 100 mg 07/21/21 09:00 Metoprolol Succinate (Er) 100 Mg Tab.Er.24h PO DAILY [facility] Naloxone HCl 0.2 mg 07/20/21 21:17 Naloxone 0.4 Mg/Ml 1 Ml Vial IV Q2M PRN Opioid Reversal Pantoprazole Sodium 40 mg 07/21/21 00:30 07/21/21 01:29 Pantoprazole 40 Mg Tablet PO 40 mg HS [facility] Administration Potassium Chloride 10 meq 07/21/21 09:00 Potassium Chloride Er 10 Meq Tab.Er.Prt PO DAILY [facility] Sertraline HCl 100 mg 07/20/21 23:00 07/21/21 01:29 Sertraline 100 Mg Tab PO 100 mg BID [facility] Administration Spironolactone 25 mg 07/21/21 09:00 Spironolactone 25 Mg Tab PO DAILY [place] Intake and Output 07/20/21 07/21/21 07/21/21 22:59 06:59 14:59 Other: # Voids 1 1 Weight 94.801 kg 07/20/21 18:31 07/20/21 18:31
[2021-07-21 10:55] LABS: Basophils # (A) 0.01 X 10*3/uL (0.00-0.10); Basophils % (A) 0.2 %; Eosinophils # (A) 0.01 X 10*3/uL (0.04-0.35); Eosinophils % (A) 0.2 %; Immature Grans, Automated 0.5 %; Lymphocytes # (A) 0.36 X 10*3/uL (0.90-5.00); Lymphocytes % (A) 6.3 %; Monocytes % (A) 1.7 %; Neutrophils # (A) 5.25 X 10*3/uL (1.80-7.70); Neutrophils % (A) 91.1 %
--- NOTE | 2021-07-21 11:16 | P.PN ---
Subjective Chart was reviewed patient was seen and examined. Patient is 71-year-old male with extensive history of smoking, COPD, emphysema, CK D, ischemic ca rdiomyopathy with last known EF of 20%, atrial fibrillation on L's. Patient is very poor historian. Patient coming in due to worsening shortness of breath with cough productive of yellowish sputum over the last few days. Subjective feeling of wheezing in his chest. Denies any URI-like symptoms. Denies any fever or chills or body aches. Denies any leg swelling, orthopnea or chest pains. On admission chest x-ray showed emphysema no acute infiltrates. EKG with paced rhythm due to presence of ICD device. No leukocytosis. Stable creatinine. Troponin was negative. He was given Lasix, Solu-Medrol, breathing treatments. He is now feeling significantly better denies any shortness of charles th mostly bothered by cough. He is currently on 2 L nasal cannula. Patient denies using oxygen at home. Patient admits to ongoing smoking. Denies any alcohol drinking. Objective - Vital Signs Vital signs: Vital Signs Temp 97.5 F L 07/21/21 07:00 Pulse 71 07/21/21 07:00 Resp 18 07/21/21 07:00 BP 112/66 07/21/21 07:00 Pulse Ox 95 07/21/21 07:00 Intake & Output 07/20/21 07/21/21 07/21/21 18:59 06:59 18:59 Weight 94.801 kg 94.801 kg Other: # Voids 1 - Exam Awake alert following commands appropriately Head and neck: Anicteric sclerae no facial asymmetry oropharyngeal mucosa is without any lesions no neck masses no JVD, no stridor Lungs: Nonlabored breathing, diminished breath sounds, few rhonchi and expiratory wheezes noted Cardiovascular: Regular rhythm and rate no murmurs rubs or gallops Abdomen: Bowel sounds present throughout, soft nontender nondistended no flank tenderness no masses Extremities: No peripheral edema, no clubbing no cyanosis Neurological: Cranial nerves intact, no focal motor or sensory deficits, No asterixis, no nystagmus, no tremors - Labs CBC & Chem 7: 07/21/21 06:56 07/21/21 06:56 Labs: Abnormal Lab Results - Last 24 Hours (Table) 07/20/21 07/20/2107/21/22 Range/Units 18:31 18:31 06:56 RBC 3.99 L (4.40-5.60) X 10*6/uL Hgb 12.0 L (13.0-17.0) g/dL Hct 39.1 L (39.6-50.0) % MCV 100.7 H 98.0 H (80.0-100.0) fL MCHC 30.7 L (32.0-37.0) g/dL RDW 16.1 H 15.9 H (11.5-15.5) % Plt Count 122 L 100 L (150-450) k/uL Plt Count Comment DECREASED A MPV 13.5 H (9.5-12.2) fL Lymphocytes # 0.8 L 0.36 L (1.0-4.8) k/uL Monocytes # 0.10 L (0.20-1.00) X 10*3/uL Eosinophils # 0.01 L (0.04-0.35) X 10*3/uL Carbon Dioxide 35 H (22-30) mmol/L Anion Gap (10.00-18.00) mmol/L BUN 42 H (9-20) mg/dL Creatinine 1.60 H (0.66-1.25) mg/dL Est GFR (CKD-EPI)AfAm (60.0-200.0) Est GFR (CKD-EPI)NonAf (60.0-200.0) BUN/Creatinine Ratio (12.00-20.00) Ratio Glucose (70-110) mg/dL Albumin (3.8-4.9) g/dL Albumin/Globulin Ratio (1.60-3.17) g/dL 07/21/21 Range/Units 06:56 RBC (4.40-5.60) X 10*6/uL Hgb (13.0-17.0) g/dL Hct (39.6-50.0) % MCV (80.0-100.0) fL MCHC (32.0-37.0) g/dL RDW (11.5-15.5) % Plt Count (150-450) k/uL Plt Count Comment MPV (9.5-12.2) fL Lymphocytes # (1.0-4.8) k/uL Monocytes # (0.20-1.00) X 10*3/uL Eosinophils # (0.04-0.35) X 10*3/uL Carbon Dioxide 30.1 H (22-30) mmol/L Anion Gap 7.90 L (10.00-18.00) mmol/L BUN 39.0 H (9-20) mg/dL Creatinine 1.6 H (0.66-1.25) mg/dL Est GFR (CKD-EPI)AfAm 48.8 L (60.0-200.0) Est GFR (CKD-EPI)NonAf 42.1 L (60.0-200.0) BUN/Creatinine Ratio 24.38 H (12.00-20.00) Ratio Glucose 135 H (70-110) mg/dL Albumin 3.7 L (3.8-4.9) g/dL Albumin/Globulin Ratio 1.48 L (1.60-3.17) g/dL Assessment and Plan Plan: #Acute hypoxic respiratory failure Probably due to acute exacerbation of COPD Continue supplemental oxygen and wean off as tolerated May need home oxygen, will need to be assessed on discharge Continue systemic steroids, antibiotics, bronchodilators Pulmonary consultation requested Obtain ABGs #Chronic systolic CHF Underlying ischemic cardiomyopathy, with ICD in place Appears euvolemic Continue oral Lasix, Toprol XL His potassium is borderline elevated, will hold home potassium and spironolactone, will restart if potassium stable Cardiology consult Patient is on Elequis, no antiplatelets Currently not on any ACEi/ARB for unknown reason to the patient #Paroxysmal atrial fibrillar Continue Apixaban and metoprolol #History of gout Continue allopurinol #Elevated creatinine Acute kidney injury versus EKG Creatinine stable, continue to monitor Nephrology consultation #Acute toxic metabolic encephalopathy Underlying dementia Overall mental status improving Adjust Neurontin dose Continue with the orientation Neurological examination is nonfocal Check ABGs
[2021-07-21] MEDS: DOXYCYCLINE 100 MG CAP PO SCH ×2 (11:35→19:51)
[2021-07-21] MEDS: THIAMINE 100 MG TAB PO SCH (11:35)
--- NOTE | 2021-07-21 11:53 | P.CNPUL ---
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 He had presented to the [facility] clinic with complaints of increasing shortness of charles th. Chest x-ray had been done and then the following day he was told to come to the emergency room here due to abnormal findings. Chest x-ray here revealed no acute pulmonary process. White count 5.7. Hemoglobin 12.0. Platelet count 100,000. Sodium 139. Potassium 5.4. Bicarb 30. BUN 39. Creatinine 1.6. Glucose 135. ProBNP 25,000. AST 32. ALT 21. He is seen today in consultation on the regular medical floor. Awake and alert. He is having periods of aphasia. He is quite hard of hearing. Somewhat of a poor historian. He's been initiated on oral diuretics, IV Solu-Medrol, bronchodilators. Empiric antibiotics in the form of Vibramycin. Anticoagulated with Eliquis. Review of Systems REVIEW OF SYSTEMS: CONSTITUTIONAL: Denies any recent significant weight loss or weight gain. EYES: Denies change in vision. EARS, NOSE, MOUTH, THROAT: Denies headaches, denies sore throat. CARDIOVASCULAR: Denies chest pain, palpitations or syncopal episodes. RESPIRATORY: Positive for shortness of breath, cough, congestion no hemoptysis. GASTROINTESTINAL: Denies change in appetite, denies abdominal pain GENITOURINARY: Denies hematuria, denies infections. MUSKULOSKELETAL: Denies pain, denies swelling. INTEGUMENTARY: Denies rash, denies eczema. NEUROLOGICAL: Denies recent memory loss, no recent seizure activity. PSYCHIATRIC: Denies anxiety, denies depression. HEMATOLOGIC/LYMPHATIC: Denies anemia, denies enlarged lymph nodes. 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 sided weakness,cataracts, bruises easily due to coumadin,does not wear cpap,neuropathy moe. feet History of Any Multi-Drug Resistant Organisms: None Reported Past Surgical History: AICD, Heart Catheterization With Stent Additional Past Surgical History / Comment(s): AICD/Pacemaker, PEG tube placed in [address] Anglin in 2019 Past Anesthesia/Blood Transfusion Reactions: No Reported Reaction Date of Last Stent Placement:: unk Type of Cardiac Device: AICD Device Placement Date:: 2009 Past Psychological History: Anxiety, Depression, PTSD Smoking Status: Current every day smoker Past Alcohol Use History: Daily, Heavy Past Drug Use History: None Reported - Past Family History Brother(s) Family Medical History: Deep Vein Thrombosis (DVT) Medications and Allergies Home Medications Medication Instructions Recorded Confirmed Type Aspirin [Adult Low Dose Aspirin EC] 81 mg PO DAILY 09/02/17 07/20/21 History Omeprazole [PriLOSEC] 20 mg PO BID 09/02/17 07/20/21 History Sertraline HCl [Zoloft] 100 mg PO BID 09/02/17 07/20/21 History allopurinoL [Zyloprim] 100 mg PO BID 09/02/17 07/20/21 History Acetaminophen-Codeine 300-30mg 1 tab PO TID PRN 04/01/19 07/20/21 History [Tylenol w/codeine #3] Rosuvastatin Calcium [Crestor] 20 mg PO HS 08/20/19 07/20/21 History Albuterol Sulfate [Albuterol 2 puff INHALATION RT-QID PRN 12/27/20 07/20/21 History Sulfate Hfa] Apixaban [Eliquis] 5 mg PO BID 12/27/20 07/20/21 History Jevity 1.5 Jakob Liquid 2 can PO TID 12/27/20 07/20/21 History Metoprolol Succinate (ER) [Toprol 100 mg PO DAILY 12/27/20 07/20/21 History XL] Spironolactone 25 mg PO DAILY 12/27/20 07/20/21 History lisinopriL [Zestril] 2.5 mg PO DAILY 12/27/20 07/20/21 History Furosemide [Lasix] 20 mg PO DAILY 02/08/21 07/20/21 History Ipratropium-Albuterol Nebulize 3 ml INHALATION RT-QID 02/08/21 07/20/21 History [Duoneb 0.5 mg-3 mg/3 ml Soln] Mag-Ox 420mg 420 mg PO BID 02/08/21 07/20/21 History Potassium Chloride [Klor-Con 10 ER] 10 meq PO DAILY 02/08/21 07/20/21 History Gabapentin [Neurontin] 600 mg PO TID 07/20/21 07/20/21 History Allergies Allergy/AdvReac Type Severity Reaction Status Date / Time fluticasone Allergy Dyspnea Verified 07/20/21 21:37 [From Wixela Inhub] metolazone [From Zaroxolyn] Allergy Rash/Hives Verified 07/20/21 21:37 salmeterol Allergy Dyspnea Verified 07/20/21 21:37 [From Wixela Inhub] warfarin [From Coumadin] Allergy Unknown Verified 07/20/21 21:37 fluvastatin AdvReac weakness/muscle Verified 07/20/21 21:37 pain simvastatin AdvReac muscle pain Verified 07/20/21 21:37 sulfamethoxazole AdvReac Abdominal Verified 07/20/21 21:37 [From Bactrim] Pain trimethoprim [From Bactrim] AdvReac Abdominal Verified 07/20/21 21:37 Pain Physical Exam Vitals: Vital Signs Temp Pulse Pulse Resp BP BP BP 07/21/21 07:00 97.5 F L 71 18 112/66 07/21/21 02:00 98.3 F 70 18 100/60 07/21/21 01:39 18 07/20/21 19:46 70 16 106/64 07/20/21 17:16 98.1 F 70 22 99/67 Pulse Ox 07/21/21 07:00 95 07/21/21 02:00 97 07/21/21 01:39 07/20/21 19:46 98 07/20/21 17:16 94 L Intake and Output 07/20/21 07/21/21 07/21/21 22:59 06:59 14:59 Other: # Voids 1 1 Weight 94.801 kg GENERAL EXAM: Alert, disheveled 71-year-old male patient, on 2 L nasal cannula, comfortable in no apparent distress. HEAD: Normocephalic. EYES: Normal reaction of pupils, equal size. NOSE: Clear with pink turbinates. THROAT: No erythema or exudates. NECK: No masses, no JVD. CHEST: No chest wall deformity. LUNGS: Equal air entry with bilateral end expiratory wheeze, few scattered rhonchi. CVS: S1 and S2 normal with no audible murmur, regular rhythm. ABDOMEN: No hepatosplenomegaly, normal bowel sounds, no guarding or rigidity. SPINE: No scoliosis or deformity SKIN: No rashes CENTRAL NERVOUS SYSTEM: No focal deficits, tone is normal in all 4 extremities. EXTREMITIES: There is no peripheral edema. No clubbing, no cyanosis. Peripheral pulses are intact. Results - Laboratory Findings CBC and BMP: 07/21/21 06:56 07/21/21 06:56 PT/INR, D-dimer PT 11.2 sec (9.0-12.0) 07/20/21 18:31 INR 1.0 (<1.2) 07/20/21 18:31 Abnormal lab findings: Abnormal Labs 07/20/21 07/20/21 07/21/21 18:31 18:31 06:56 RBC 3.99 L Hgb 12.0 L Hct 39.1 L MCV 100.7 H 98.0 H MCHC 30.7 L RDW 16.1 H 15.9 H Plt Count 122 L 100 L Plt Count Comment DECREASED A MPV 13.5 H Lymphocytes # 0.8 L 0.36 L Monocytes # 0.10 L Eosinophils # 0.01 L Carbon Dioxide 35 H Anion Gap BUN 42 H Creatinine 1.60 H Est GFR (CKD-EPI)AfAm Est GFR (CKD-EPI)NonAf BUN/Creatinine Ratio Glucose Albumin Albumin/Globulin Ratio 07/21/21 06:56 RBC Hgb Hct MCV MCHC RDW Plt Count Plt Count Comment MPV Lymphocytes # Monocytes # Eosinophils # Carbon Dioxide 30.1 H Anion Gap 7.90 L BUN 39.0 H Creatinine 1.6 H Est GFR (CKD-EPI)AfAm 48.8 L Est GFR (CKD-EPI)NonAf 42.1 L BUN/Creatinine Ratio 24.38 H Glucose 135 H Albumin 3.7 L Albumin/Globulin Ratio 1.48 L - Diagnostic Findings Chest x-ray: image reviewed Assessment and Plan Assessment: 1 Acute exacerbation of chronic systolic congestive heart failure 2 Acute exacerbation of chronic obstructive pulmonary disease 3 History of severe ischemic cardiomyopathy with ejection fraction less than 20% 4 History of AICD placement 5 Coronary artery disease with previous stent placement 6 History of CVA with residual expressive aphasia and right-sided weakness 7 Hypertension 8 Acute on chronic renal failure 9 Hyperlipidemia 10 Chronic atrial fibrillation, anticoagulant with warfarin 11 History of gout 12 Chronic and ongoing tobacco dependence 13 History of daily alcohol use 14 History of dysphagia secondary to the CVA with previous PEG tube insertion and subsequent removal 15 Hearing disorder Plan: The patient was seen and evaluated Chest x-ray and labs reviewed Continue DuoNeb inhalations, IV Solu-Medrol Anticoagulated with Eliquis Empiric anti-medics in the form of doxycycline Titrate the FiO2 as tolerated Increase his activity as tolerated We will continue to follow and make further recommendations based on his clinical status I have personally seen and examined the patient, performed the documentation and the assessment and plan as written. Number of minutes spent on the visit: 20.
--- NOTE | 2021-07-21 12:39 | XR ---
Abdomen HISTORY: Pain Frontal view the abdomen on [address] scan 08/21/2019 Oh vascular calcifications present within the pelvis. Bone mineralization is normal. There are overly ing artifacts. Gallstones are calcified the right upper quadrant. No evident bowel obstruction or pne umoperitoneum. Defibrillator leads present within the heart. Degenerative disc changes present in the visualized lumbar spine. Entire abdomen is not included on exam. IMPRESSION: Cholelithiasis.
[2021-07-21 13:38] LABS: ABG Base Excess 5.7 mmol/L; ABG HCO3 32 mmol/L (21-25); ABG PCO2 60 mmHg (35-45); ABG PH 7.33 (7.35-7.45); ABG PO2 82 mmHg (83-108); ABG TCO2 34 mmol/L (19-24); Allen Test Performed? Yes
[2021-07-22] MEDS: methylPREDNISolone SOD SUCCI 125 MG/2 ML VIAL IV SCH (07:08)
[2021-07-22] MEDS: THIAMINE 100 MG TAB PO SCH (07:09)
[2021-07-22] MEDS: METOPROLOL SUCCINATE (ER) 100 MG TAB.ER.24H PO SCH (07:09)
[2021-07-22] MEDS: allopurinoL 100 MG TAB PO SCH ×2 (07:09→19:57)
[2021-07-22] MEDS: APIXABAN 5 MG TAB PO SCH ×2 (07:09→19:57)
[2021-07-22] MEDS: GABAPENTIN 100 MG CAP PO SCH ×2 (07:09→19:57)
[2021-07-22] MEDS: ASPIRIN 81 MG PO SCH (07:09)
[2021-07-22] MEDS: MAGNESIUM OXIDE 400 MG TAB PO SCH (07:10)
[2021-07-22] MEDS: DOXYCYCLINE 100 MG CAP PO SCH ×2 (07:10→19:57)
[2021-07-22] MEDS: FUROSEMIDE 40 MG TAB PO SCH ×2 (07:10→15:32)
[2021-07-22] MEDS: SERTRALINE 100 MG TAB PO SCH ×2 (07:10→19:58)
--- NOTE | 2021-07-22 10:07 | P.PN ---
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 He had presented to the [facility] clinic with complaints of increasing shortness of breath. Chest x-ray had been done and then the following day he was told to come to the emergency room here due to abnormal findings. Chest x-ray here revealed no acute pulmonary process. White count 5.7. Hemoglobin 12.0. Platelet count 100,000. Sodium 139. Potassium 5.4. Bicarb 30. BUN 39. Creatinine 1.6. Glucose 135. ProBNP 25,000. AST 32. ALT 21. He is seen today in consultation on the regular medical floor. Awake and alert. He is having periods of aphasia. He is quite hard of hearing. Somewhat of a poor historian. He's been initiated on oral diuretics, IV Solu-Medrol, bronchodilators. Empiric antibiotics in the form of Vibramycin. Anticoagulated with Eliquis. The patient is seen today 07/22/2021 in follow-up on the regular medical floor. He is currently sitting up in bed. Awake and alert in no acute distress. He denies any worsening shortness of breath, cough or congestion. Feeling back to his baseline. He is currently maintaining O2 saturations in the mid 90s on 2 L/m per nasal cannula. Arterial blood gases on 28% FiO2 revealed a PaO2 of 82, pCO2 60, pH 7.33. He did have complaints of abdominal discomfort yesterday. Abdominal x-ray revealed evidence of gallstones calcified in the right upper quadrant and cholelithiasis. No evidence of bowel obstruction or pneumoperitoneum. He's been continued on DuoNeb inhalations, IV Solu-Medrol. Anticoagulated with Eliquis. Empiric antibiotics in the form of doxycycline. Objective - Vital Signs Vital signs: Vital Signs Temp 97.4 F L 07/22/21 07:00 Pulse 71 07/22/21 07:00 Resp 14 07/22/21 07:00 BP 107/69 07/22/21 07:00 Pulse Ox 91 L 04/23/22 08:37 Intake & Output 07/21/21 07/22/21 07/22/21 18:59 06:59 18:59 Intake Total 236 240 Balance 236 240 Intake: Oral 236 240 Other: # Voids 1 2 - Exam GENERAL EXAM: Alert, disheveled 71-year-old male patient, on 2 L nasal cannula, comfortable in no apparent distress. HEAD: Normocephalic. EYES: Normal reaction of pupils, equal size. NOSE: Clear with pink turbinates. THROAT: No erythema or exudates. NECK: No masses, no JVD. CHEST: No chest wall deformity. LUNGS: Equal air entry with bilateral end expiratory wheeze, few scattered rhonchi. CVS: S1 and S2 normal with no audible murmur, regular rhythm. ABDOMEN: No hepatosplenomegaly, normal bowel sounds, no guarding or rigidity. SPINE: No scoliosis or deformity SKIN: No rashes CENTRAL NERVOUS SYSTEM: No focal deficits, tone is normal in all 4 extremities. EXTREMITIES: There is no peripheral edema. No clubbing, no cyanosis. Peripheral pulses are intact. - Labs CBC & Chem 7: 07/21/21 06:56 07/21/21 06:56 Labs: Abnormal Lab Results - Last 24 Hours (Table) 07/21/21 07/21/21 Range/Units 06:56 13:30 Plt Count Comment DECREASED A Lymphocytes # 0.36 L (0.90-5.00) X 10*3/uL Monocytes # 0.10 L (0.20-1.00) X 10*3/uL Eosinophils # 0.01 L (0.04-0.35) X 10*3/uL ABG pH 7.33 L (7.35-7.45) ABG pCO2 60 H (35-45) mmHg ABG pO2 82 L (83-108) mmHg ABG HCO3 32 H (21-25) mmol/L ABG Total CO2 34 H (19-24) mmol/L Assessment and Plan Assessment: 1 Acute exacerbation of chronic systolic congestive heart failure 2 Acute exacerbation of chronic obstructive pulmonary disease 3 History of severe ischemic cardiomyopathy with ejection fraction less than 20% 4 History of AICD placement 5 Coronary artery disease with previous stent placement 6 History of CVA with residual expressive aphasia and right-sided weakness 7 Hypertension 8 Acute on chronic renal failure 9 Hyperlipidemia 10 Chronic atrial fibrillation, anticoagulant with warfarin 11 History of gout 12 Chronic and ongoing tobacco dependence 13 History of daily alcohol use 14 History of dysphagia secondary to the CVA with previous PEG tube insertion and subsequent removal 15 Hearing disorder Plan: The patient was seen and evaluated Medications and labs reviewed Continue DuoNeb inhalations, albuterol HFA DC IV Solu-Medrol, initiated prednisone taper starting at 40 mg for 4 days Evaluate for possible home oxygen Cleared for discharge from the pulmonary standpoint I have personally seen and examined the patient, performed the documentation and the assessment and plan as written. Number of minutes spent on the visit: 10.
--- NOTE | 2021-07-22 12:31 | P.PN ---
Subjective Progress Note Date: 07/22/21 This is Samuel izaguirre NP, I'm dictating on behalf of Dr. Prather's H&P and A&P. Patient was interviewed and examined. Patient is a pleasant 71-year-old male who initially came the hospital with congestive heart failure. Patient reports that he is feeling pretty good. He is currently denying chest pain, shortness of breath, heart palpitations, nausea, vomiting, diarrhea, constipation, abdominal pain. Patient reports that he's ambulating about the room without any complaints of shortness of breath. GENERAL: Well-appearing, well-nourished and in no acute distress. NECK: Supple without JVD or thyromegaly. LUNGS: Breath sounds demonstrate fine crackles, with poor air entry. Respiration equal and unlabored. No wheezes, rales or rhonchi. HEART: Regular rate and rhythm without murmurs, rubs or gallops. S1 and S2 heard. EXTREMITIES: Normal range of motion, no edema. No clubbing or cyanosis. P eripheral pulses intact and strong. VITALS: [Temp 97.4, pulse 71, respirations 14, blood pressure 107/69, O2 saturation 95% on 2 L via nasal cannula] TELEMETRY: [Ventricularly paced rhythm] LABS: [White count 5.76, hemoglobin is 12.0, platelets 100, sodium 139, potassium 5.4, B1 39, creatinine 1.6, BNP 25,000] IMPRESSION/PLAN: [1. Congestive heart failure-chronic with no acute exacerbation. Continue by mouth Lasix. 2. CAD with previous PCI 3. Hyperlipidemia 4. Atrial fibrillation-continue Eliquis 5. CKD From a cardiology standpoint the patient is ready for discharge. If further recommendations are required, please don't hesitate to consult us again.] Objective - Vital Signs Vital signs: Vital Signs Temp 97.4 F L 07/22/21 07:00 Pulse 71 07/22/21 07:00 Resp 14 07/22/21 07:00 BP 107/69 07/22/21 07:00 Pulse Ox 91 L 07/22/21 08:37 Intake & Output 07/21/21 07/22/21 07/22/21 18:59 06:59 18:59 Intake Total 236 240 Balance 236 240 Intake: Oral 236 240 Other: # Voids 1 2 - Labs CBC & Chem 7: 07/21/21 06:56 07/21/21 06:56 Labs: Abnormal Lab Results - Last 24 Hours (Table) 07/21/21 Range/Units 13:30 ABG pH 7.33 L (7.35-7.45) ABG pCO2 60 H (35-45) mmHg ABG pO2 82 L (83-108) mmHg ABG HCO3 32 H (21-25) mmol/L ABG Total CO2 34 H (19-24) mmol/L
--- NOTE | 2021-07-22 14:40 | P.NPCON ---
History of Present Illness - Reason for Consult Consult date: 07/22/21 acute renal failure - Chief Complaint Shortness of breath - History of Present Illness This is a 71-year-old male who is somewhat confused and unreliable historian. He came in because of worsening shortness of breath but complains right now that his perfectly fine and wants to go home He is being seen because of elevated creatinine. Looks like he has chronic kidney disease. His creatinine has been in the 1.3 range all in 2019 multiple records, then came down to 1.07 on 12/27/2020 and then has been 1.4-1.7 on 02/10/2021. Came in with a creatinine of 1.6. Is known with atrial fibrillation and COPD previous CVA with speech problems in 2009 and slight right-sided weakness. Also has had AICD and pacer. Workup in the emergency room showed a normal chest x-ray. Denies taking any nonsteroidals but his history is unreliable because of confusion Past Medical History Past Medical History: Atrial Fibrillation, Heart Failure, COPD, CVA/TIA, Eye Disorder, Hearing Disorder / Deafness, Hyperlipidemia, Hypertension, Skin Disorder, Sleep Apnea/CPAP/BIPAP Additional Past Medical History / Comment(s): CVA approx 2009-speech affected and slight rt. sided weakness,cataracts, bruises easily due to coumadin,does not wear cpap,neuropathy moe. feet History of Any Multi-Drug Resistant Organisms: None Reported Past Surgical History: AICD, Heart Catheterization With Stent Additional Past Surgical History / Comment(s): AICD/Pacemaker, PEG tube placed i n [address] Anglin in 2019 Past Anesthesia/Blood Transfusion Reactions: No Reported Reaction Date of Last Stent Placement:: unk Type of Cardiac Device: AICD Device Placement Date:: approx 2009 Past Psychological History: Anxiety, Depression, PTSD Smoking Status: Current every day smoker Past Alcohol Use History: Daily, Heavy Past Drug Use History: None Reported - Past Family History Brother(s) Family Medical History: Deep Vein Thrombosis (DVT) Medications and Allergies Home Medications Medication Instructions Recorded Confirmed Type Aspirin [Adult Low Dose Aspirin EC] 81 mg PO DAILY 09/02/17 07/20/21 History Omeprazole [PriLOSEC] 20 mg PO BID 09/02/17 07/20/21 History Sertraline HCl [Zoloft] 100 mg PO BID 09/02/17 07/20/21 History allopurinoL [Zyloprim] 100 mg PO BID 09/02/17 07/20/21 History Acetaminophen-Codeine 300-30mg 1 tab PO TID PRN 04/01/19 07/20/21 History [Tylenol w/codeine #3] Rosuvastatin Calcium [Crestor] 20 mg PO HS 08/20/19 07/20/21 History Albuterol Sulfate [Albuterol 2 puff INHALATION RT-QID PRN 12/27/20 07/20/21 History Sulfate Hfa] Apixaban [Eliquis] 5 mg PO BID 12/27/20 07/20/21 History Jevity 1.5 Jakob Liquid 2 can PO TID 12/27/20 07/20/21 History Metoprolol Succinate (ER) [Toprol 100 mg PO DAILY 12/27/20 07/20/21 History XL] Spironolactone 25 mg PO DAILY 12/27/20 07/20/21 History lisinopriL [Zestril] 2.5 mg PO DAILY 12/27/20 07/20/21 History Furosemide [Lasix] 20 mg PO DAILY 02/08/21 07/20/21 History Ipratropium-Albuterol Nebulize 3 ml INHALATION RT-QID 02/08/21 07/20/21 History [Duoneb 0.5 mg-3 mg/3 ml Soln] Mag-Ox 420mg 420 mg PO BID 02/08/21 07/20/21 History Potassium Chloride [Klor-Con 10 ER] 10 meq PO DAILY 02/08/21 07/20/21 History Gabapentin [Neurontin] 600 mg PO TID 07/20/21 07/20/21 History Allergies Allergy/AdvReac Type Severity Reaction Status Date / Time fluticasone Allergy Dyspnea Verified 07/20/21 21:37 [From Wixela Inhub] metolazone [From Zaroxolyn] Allergy Rash/Hives Verified 07/20/21 21:37 salmeterol Allergy Dyspnea Verified 07/20/21 21:37 [From Wixela Inhub] warfarin [From Coumadin] Allergy Unknown Verified 07/20/21 21:37 fluvastatin AdvReac weakness/muscle Verified 07/20/21 21:37 pain simvastatin AdvReac muscle pain Verified 07/20/21 21:37 sulfamethoxazole AdvReac Abdominal Verified 07/20/21 21:37 [From Bactrim] Pain trimethoprim [From Bactrim] AdvReac Abdominal Verified 07/20/21 21:37 Pain Physical Exam Vitals: Vital Signs Temp Pulse Pulse Pulse Pulse Pulse Pulse 07/22/21 13:18 97.7 F 70 07/22/21 08:37 07/22/21 07:48 07/22/21 07:00 97.4 F L 71 07/22/21 01:49 97.4 F L 69 07/21/21 18:51 97.7 F 71 07/21/21 16:53 70 72 74 72 07/21/21 16:00 74 07/21/21 15:53 70 07/21/21 14:47 97.7 F 70 Resp BP BP Pulse Ox Pulse Ox Pulse Ox Pulse Ox 07/22/21 13:18 16 109/73 96 07/22/21 08:37 98 95 91 L 07/22/21 07:48 95 07/22/21 07:00 14 107/69 93 L 07/22/21 01:49 18 113/73 98 07/21/21 18:51 20 109/70 97 07/21/21 16:53 98 93 L 94 L 07/21/21 16:00 07/21/21 15:53 97 07/21/21 14:47 18 107/68 98 Pulse Ox 07/22/21 13:18 07/22/21 08:37 87 L 07/22/21 07:48 07/22/21 07:00 07/22/21 01:49 07/21/21 18:51 07/21/21 16:53 88 L 07/21/21 16:00 07/21/21 15:53 07/21/21 14:47 Intake and Output 07/21/21 07/22/21 07/22/21 22:59 06:59 14:59 Intake Total 118 358 Balance 118 358 Intake: Oral 118 358 Other: # Voids 2 2 2 # Bowel Movements 1 Awake alert and pleasantly confused answers most questions but unreliable. If this oriented 3 A chin exam no JVP neck is supple no facial asymmetry Lungs clear to auscultation good air entry bilaterally Heart sounds unremarkable for any murmur rub gallop or soft nontender Extremity exam trace edema Neurologically awake alert disoriented to place percent and time no asterixis Results - Lab Results Most recent lab results ABG pH 7.33 (7.35-7.45) L 07/21/21 13:30 ABG pCO2 60 mmHg (35-45) H 07/21/21 13:30 ABG pO2 82 mmHg (83-108) L 07/21/21 13:30 ABG HCO3 32 mmol/L (21-25) H 07/21/21 13:30 ABG O2 Saturation 96.0 % (94-97) 07/21/21 13:30 Calcium 9.1 mg/dL (8.7-10.3) 07/21/21 06:56 07/21/21 06:56 07/21/21 06:56 Assessment and Plan Assessment: Reason 1. Chronic kidney disease stage III, creatinine 1.44 and GFR 48 mL per minute as of 02/08/2021, likely from nephrosclerosis. And prior to this creatinine has been 1.39 on 08/20/2017, urinalysis on 08/27/2021 years ago protein 1+ otherwise unremarkable. Ultrasound dated 04/02/2019 right kidney 11.7 and left kidney 13.2 cm. computed tomography scan on 08/20/2021 years ago showed compression fracture T10 and L4 left renal cortical cyst and large left renal pelvis compared to old exam 2. Respiratory acidosis with a pH of 7.33 and a pCO2 of 60 and a pO2 of 82 likely from COPD 3 dementia. History of CVA in the past with speech impediment 2009 and right- sided mild weakness. 4. Mildly low blood pressure in the 100 213 systolic range Recommendation 1. Currently on Lasix 40 twice a day. Watch creatinine blood pressures closely and may need to reduce the diuretic dose. Otherwise no changes recommended avoid the end of protocol as these have been implicated in chronic kidney disease Thank you for this consultation we'll continue to follow closely
--- NOTE | 2021-07-22 17:01 | P.PN ---
Subjective Progress Note Date: 07/22/21 No new complaints. Breathing is stable. Pt at baseline expressive aphasia. Gen: awake, alert HEENT: normocephalic, atraumatic, good hearing acuity, moist mucous membranes Resp: good air exchange, breathing comfortably with no accessory muscle use CVS: good distal perfusion x 4, GI: soft, NTTP, ND : no SPT, no CVAT, lancaster catheter not present MSK: no pitting edema, no clubbing Neuro: non-focal, moving all extremities Psych: cooperative, euthymic mood Assessment/plan: #Acute hypoxic respiratory failure Probably due to acute exacerbation of COPD Continue supplemental oxygen and wean off as tolerated May need home oxygen, will need to be assessed on discharge Continue systemic steroids, antibiotics, bronchodilators Pulmonary consultation requested Obtain ABGs We'll need home oxygen #Chronic systolic CHF Underlying ischemic cardiomyopathy, with ICD in place Appears euvolemic Continue oral Lasix, Toprol XL His potassium is borderline elevated, will hold home potassium and spironolactone, will restart if potassium stable Cardiology consult Patient is on Elequis, no antiplatelets Currently not on any ACEi/ARB for unknown reason to the patient #Paroxysmal atrial fibrillar Continue Apixaban and metoprolol #History of gout Continue allopurinol #Elevated creatinine Acute kidney injury versus EKG Creatinine stable, continue to monitor Nephrology consultation #Acute toxic metabolic encephalopathy Underlying dementia Overall mental status improving Adjust Neurontin dose Continue with the orientation Neurological examination is nonfocal Check ABGs Objective - Vital Signs Vital signs: Vital Signs Temp 97.7 F 07/22/21 13:18 Pulse 70 07/22/21 13:18 Resp 16 07/22/21 13:18 BP 109/73 07/22/21 13:18 Pulse Ox 96 07/22/21 13:18 Intake & Output 07/21/21 07/22/21 07/22/21 18:59 06:59 18:59 Intake Total 236 358 Balance 236 358 Intake: Oral 236 358 Other: # Voids 1 2 2 # Bowel Movements 1 - Labs CBC & Chem 7: 07/21/21 06:56 07/21/21 06:56
[2021-07-22] MEDS: ATORVASTATIN 40 MG TAB PO SCH (19:56)
[2021-07-22] MEDS: PANTOPRAZOLE 40 MG TABLET PO SCH (19:57)
[2021-07-23 02:47] VITALS: PULSE 71
[2021-07-23 07:10] VITALS: BP 112/68; RESP 18; TEMP 98.2
[2021-07-23] MEDS: DOXYCYCLINE 100 MG CAP PO SCH (07:15)
[2021-07-23] MEDS: APIXABAN 5 MG TAB PO SCH (07:15)
[2021-07-23] MEDS: ASPIRIN 81 MG PO SCH (07:15)
[2021-07-23] MEDS: allopurinoL 100 MG TAB PO SCH (07:15)
[2021-07-23] MEDS: FUROSEMIDE 40 MG TAB PO SCH (07:15)
[2021-07-23] MEDS: SERTRALINE 100 MG TAB PO SCH (07:15)
[2021-07-23] MEDS: GABAPENTIN 100 MG CAP PO SCH (07:15)
[2021-07-23] MEDS: THIAMINE 100 MG TAB PO SCH (07:16)
[2021-07-23] MEDS: METOPROLOL SUCCINATE (ER) 100 MG TAB.ER.24H PO SCH (07:16)
[2021-07-23] MEDS: MAGNESIUM OXIDE 400 MG TAB PO SCH (07:16)
[2021-07-23] MEDS ORDERED: predniSONE 20 MG TAB PO SCH (09:00)
--- NOTE | 2021-07-23 12:43 | P.PN ---
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 He had presented to the [facility] clinic with complaints of increasing shortness of breath. Chest x-ray had been done and then the following day he was told to come to the emergency room here due to abnormal findings. Chest x-ray here revealed no acute pulmonary process. White count 5.7. Hemoglobin 12.0. Platelet count 100,000. Sodium 139. Potassium 5.4. Bicarb 30. BUN 39. Creatinine 1.6. Glucose 135. ProBNP 25,000. AST 32. ALT 21. He is seen today in consultation on the regular medical floor. Awake and alert. He is having periods of aphasia. He is quite hard of hearing. Somewhat of a poor historian. He's been initiated on oral diuretics, IV Solu-Medrol, bronchodilators. Empiric antibiotics in the form of Vibramycin. Anticoagulated with Eliquis. The patient is seen today 07/22/2021 in follow-up on the regular medical floor. He is currently sitting up in bed. Awake and alert in no acute distress. He denies any worsening shortness of breath, cough or congestion. Feeling back to his baseline. He is currently maintaining O2 saturations in the mid 90s on 2 L/m per nasal cannula. Arterial blood gases on 28% FiO2 revealed a PaO2 of 82, pCO2 60, pH 7.33. He did have complaints of abdominal discomfort yesterday. Abdominal x-ray revealed evidence of gallstones calcified in the right upper quadrant and cholelithiasis. No evidence of bowel obstruction or pneumoperitoneum. He's been continued on DuoNeb inhalations, IV Solu-Medrol. Anticoagulated with Eliquis. Empiric antibiotics in the form of doxycycline. The patient is seen today 07/23/2021 in follow-up on the regular medical floor. He is awake and alert in no acute distress. He is still on oxygen at 2 L/m per nasal cannula. He does qualify for home oxygen. He is planning to go home today. He denies any worsening shortness of breath, cough or congestion. He is continued on DuoNeb inhalations, prednisone taper, empiric antibiotics in the form of Vibramycin. Objective - Vital Signs Vital signs: Vital Signs Temp 98.2 F 07/23/21 07:09 Pulse 71 07/23/21 07:09 Resp 18 07/23/21 07:09 BP 112/68 07/23/21 07:09 Pulse Ox 98 07/23/21 07:09 Intake & Output 07/22/21 07/23/21 07/23/21 18:59 06:59 18:59 Intake Total 598 240 Balance 598 240 Intake: Oral 598 240 Other: # Voids 2 2 # Bowel Movements 1 - Exam GENERAL EXAM: Alert, disheveled 71-year-old male patient, on 2 L nasal cannula, comfortable in no apparent distress. HEAD: Normocephalic. EYES: Normal reaction of pupils, equal size. NOSE: Clear with pink turbinates. THROAT: No erythema or exudates. NECK: No masses, no JVD. CHEST: No chest wall deformity. LUNGS: Equal air entry with bilateral end expiratory wheeze, few scattered rhonchi. CVS: S1 and S2 normal with no audible murmur, regular rhythm. ABDOMEN: No hepatosplenomegaly, normal bowel sounds, no guarding or rigidity. SPINE: No scoliosis or deformity SKIN: No rashes CENTRAL NERVOUS SYSTEM: No focal deficits, tone is normal in all 4 extremities. EXTREMITIES: There is no peripheral edema. No clubbing, no cyanosis. Peripheral pulses are intact. - Labs CBC & Chem 7: 07/21/21 06:56 07/21/21 06:56 Assessment and Plan Assessment: 1 Acute exacerbation of chronic systolic congestive heart failure 2 Acute exacerbation of chronic obstructive pulmonary disease 3 History of severe ischemic cardiomyopathy with ejection fraction less than 20% 4 History of AICD placement 5 Coronary artery disease with previous stent placement 6 History of CVA with residual expressive aphasia and right-sided weakness 7 Hypertension 8 Acute on chronic renal failure 9 Hyperlipidemia 10 Chronic atrial fibrillation, anticoagulant with warfarin 11 History of gout 12 Chronic and ongoing tobacco dependence 13 History of daily alcohol use 14 History of dysphagia secondary to the CVA with previous PEG tube insertion and subsequent removal 15 Hearing disorder Plan: The patient was seen and evaluated Stable and cleared for discharge from the pulmonary standpoint Continue DuoNeb inhalations, albuterol HFA Prednisone taper starting at 40 mg for 4 days Qualifies for home oxygen Cleared for discharge from the pulmonary standpoint I have personally seen and examined the patient, performed the documentation and the assessment and plan as written. Number of minutes spent on the visit: 10.
--- NOTE | 2021-07-23 12:50 | PN ---
PROGRESS NOTE PULMONARY/CRITICAL CARE PROGRESS NOTE: DATE OF SERVICE: 07/23/2021 This is a 71-year-old gentleman who was admitted with a diagnosis of COPD exacerbation. The patient is hoping to be discharged today. We do see oxygen tanks in his room. He is currently on 2 L nasal cannula. He states that he is feeling much better. The patient has a history of CVA, aphasia, atrial fibrillation, coronary artery disease, previous stent placement, ischemic cardiomyopathy, and placement of AICD. In addition, the patient has severe systolic dysfunction with an ejection fraction of 20%, hypertension, hyperlipidemia, anxiety/depression, and ongoing tobacco dependence. Current vital signs are reviewed. They include a pulse of 82 beats per minute, respiratory rate 17, blood pressure 108/72. On 2 liters temperature is 97.4. He appears in no acute distress. He is resting comfortably. Nasal prongs in place. HEENT: Examination is grossly unremarkable. NECK: Supple. Full range of motion. No adenopathy. Neck veins are flat. CARDIOVASCULAR: Examination reveals regular rhythm and rate. S1, S2 normal. No S3, S4 or murmur. LUNGS: Lungs reveal scattered rhonchi. Breath sounds are equal but diminished throughout. No wheezes. No crackles. ABDOMEN: Soft. Bowel sounds are heard. EXTREMITIES: Intact. No cyanosis, clubbing or edema. SKIN: Without rash. NEUROLOGIC: Examination is brief but nonfocal. ASSESSMENT: 1. Acute exacerbation of chronic systolic congestive heart failure. 2. Acute exacerbation of chronic obstructive pulmonary disease. 3. History of severe ischemic cardiomyopathy with an ejection fraction of less than 20%. 4. History of AICD. 5. Coronary artery disease with previous stent placement. 6. History of cerebrovascular accident with residual expressive aphasia and right- sided weakness. 7. Hypertension. 8. Acute on chronic renal insufficiency/failure. 9. Hyperlipidemia. 10.Chronic atrial fibrillation. 11.History of gout. 12.Chronic and ongoing tobacco dependence. 13.History of daily alcohol use. 14.Deafness. PLAN: The patient will likely be discharged home today. We will continue to follow if not. The patient can follow up with us in the office for pulmonary function testing. Additional recommendations and suggestions are forthcoming. Solu-Medrol can be discontinued in favor prednisone. The patient should get a prednisone taper beginning with 40 mg. The dose can be dropped by 10 mg every fifth day. No additional recommendations are made. Prognosis is guarded. MMODL / IJN: [id number] /
--- NOTE | 2021-07-23 13:26 | P.DS ---
Providers Date of admission: 07/21/21 12:13 Expected date of discharge: 07/23/21 Attending physician: Lila Iglesias MD Consults: 07/20/21 21:18 Consult Physician Urgent Consulting Provider: [facility] Consult Reason/Comments: aechf Do you want consulting provider notified?: Yes Consult Physician Urgent Consulting Provider: Joel Cox Consult Reason/Comments: acute/chronic respiratory failure, aecopd Do you want consulting provider notified?: Yes 07/21/21 11:17 Consult Physician Routine Consulting Provider: Rosemary Schultz Consult Reason/Comments: KERRIE Do you want consulting provider notified?: Yes Primary care physician: [facility] Hospital Course: 71-year-old male with congestive heart failure most recent left ventricular ejection fraction less than 20%on February 19. Workup in the ED chest x-ray showed no acute pathology. Work showed acute on chronic kidney disease, elevated proBNP, #Acute hypoxic respiratory failure #COPD Exacerbation Pt treated with steroids, antibiotics, bronchodilators. Seen in consultation with pulmonology. Provided supplemental oxygen, and found to require home O2 at baseline. Home O2 set up via case management, and patient discharged home with total 5 days of antibiotics and steroids. #KERRIE Acute kidney injury, creatinine improved by discharge. nephrology consulted, and will f/u patient on discharge. #Acute toxic metabolic encephalopathy Underlying dementia. Improved mental status to baseline with treatment for COPD #Chronic systolic CHF #Paroxysmal atrial fibrillation #History of gout No changes to home meds I spent 40 minutes coordinating this complex discharge. Gen: awake, alert HEENT: normocephalic, atraumatic, good hearing acuity, moist mucous membranes Resp: good air exchange, breathing comfortably with no accessory muscle use CVS: good distal perfusion x 4, GI: soft, NTTP, ND : no SPT, no CVAT, lancaster catheter not present MSK: no pitting edema, no clubbing Neuro: non-focal, moving all extremities Psych: cooperative, euthymic mood Patient Condition at Discharge: Good Plan - Discharge Summary New Discharge Prescriptions: New predniSONE [Deltasone] 40 mg PO DAILY #4 tab Doxycycline [Vibramycin] 100 mg PO BID #4 cap Thiamine [Vitamin B-1] 100 mg PO DAILY #30 tab Continue Sertraline HCl [Zoloft] 100 mg PO BID Omeprazole [PriLOSEC] 20 mg PO BID allopurinoL [Zyloprim] 100 mg PO BID Aspirin [Adult Low Dose Aspirin EC] 81 mg PO DAILY Acetaminophen-Codeine 300-30mg [Tylenol w/codeine #3] 1 tab PO TID PRN PRN Reason: Pain Rosuvastatin Calcium [Crestor] 20 mg PO HS Albuterol Sulfate [Albuterol Sulfate Hfa] 2 puff INHALATION RT-QID PRN PRN Reason: Shortness Of Breath Apixaban [Eliquis] 5 mg PO BID Jevity 1.5 Jakob Liquid 2 can PO TID Metoprolol Succinate (ER) [Toprol XL] 100 mg PO DAILY Ipratropium-Albuterol Nebulize [Duoneb 0.5 mg-3 mg/3 ml Soln] 3 ml INHALATION RT-QID lisinopriL [Zestril] 2.5 mg PO DAILY Spironolactone 25 mg PO DAILY Potassium Chloride [Klor-Con 10 ER] 10 meq PO DAILY Mag-Ox 420mg 420 mg PO BID Gabapentin [Neurontin] 600 mg PO TID Changed Furosemide [Lasix] 40 mg PO DAILY #30 Discharge Medication List Aspirin [Adult Low Dose Aspirin EC] 81 mg PO DAILY 09/02/17 [History] Omeprazole [PriLOSEC] 20 mg PO BID 09/02/17 [History] Sertraline HCl [Zoloft] 100 mg PO BID 09/02/17 [History] allopurinoL [Zyloprim] 100 mg PO BID 09/02/17 [History] Acetaminophen-Codeine 300-30mg [Tylenol w/codeine #3] 1 tab PO TID PRN 04/01/19 [History] Rosuvastatin Calcium [Crestor] 20 mg PO HS 08/20/19 [History] Albuterol Sulfate [Albuterol Sulfate Hfa] 2 puff INHALATION RT-QID PRN 12/27/20 [History] Apixaban [Eliquis] 5 mg PO BID 12/27/20 [History] Jevity 1.5 Jakob Liquid 2 can PO TID 12/27/20 [History] Metoprolol Succinate (ER) [Toprol XL] 100 mg PO DAILY 12/27/20 [History] Spironolactone 25 mg PO DAILY 12/27/20 [History] lisinopriL [Zestril] 2.5 mg PO DAILY 12/27/20 [History] Ipratropium-Albuterol Nebulize [Duoneb 0.5 mg-3 mg/3 ml Soln] 3 ml INHALATION RT-QID 02/08/21 [History] Mag-Ox 420mg 420 mg PO BID 02/08/21 [History] Potassium Chloride [Klor-Con 10 ER] 10 meq PO DAILY 02/08/21 [History] Gabapentin [Neurontin] 600 mg PO TID 07/20/21 [History] Doxycycline [Vibramycin] 100 mg PO BID #4 cap 07/23/21 [Rx] Furosemide [Lasix] 40 mg PO DAILY #30 07/23/21 [Rx] Thiamine [Vitamin B-1] 100 mg PO DAILY #30 tab 07/23/21 [Rx] predniSONE [Deltasone] 40 mg PO DAILY #4 tab 07/23/21 [Rx] Follow up Appointment(s)/Referral(s): Lee Curiel MD [STAFF PHYSICIAN] - [address] [facility]Clinic [Primary Care Provider] - 1-2 days Patient Instructions/Handouts: Heart Failure (DC) Discharge Disposition: HOME SELF-CARE
== END 2021-07-23 12:05 | disposition home or self-care (01) | DRG 190 ==
LOC: EC 16:54 → 6NMEDSUR 21:17 → OBSVTOIN 07-21 12:13
PROVIDERS: ADMIT Internal Medicine; ATTEND Internal Medicine
PROC: 3E0F7SF Introduction of Other Gas into Respiratory Tract, Via Natural or Artificial Opening (ICD-10-PCS; principal; 2021-07-21)
DX: J43.9 Emphysema, unspecified (principal); I50.23 Acute on chronic systolic (congestive) heart failure; J96.21 Acute and chronic respiratory failure with hypoxia; G92.8 Other toxic encephalopathy; J18.9 Pneumonia, unspecified organism; I48.21 Permanent atrial fibrillation; I69.351 Hemiplegia and hemiparesis following cerebral infarction affecting right dominant side; E87.2 Acidosis; I13.0 Hypertensive heart and chronic kidney disease with heart failure and stage 1 through stage 4 chronic kidney disease, or unspecified chronic kidney disease; N17.9 Acute kidney failure, unspecified; G62.9 Polyneuropathy, unspecified; I69.391 Dysphagia following cerebral infarction; R13.10 Dysphagia, unspecified; M10.9 Gout, unspecified; F17.210 Nicotine dependence, cigarettes, uncomplicated; I08.3 Combined rheumatic disorders of mitral, aortic and tricuspid valves; K80.20 Calculus of gallbladder without cholecystitis without obstruction; N18.30 Chronic kidney disease, stage 3 unspecified; I25.10 Atherosclerotic heart disease of native coronary artery without angina pectoris; I48.0 Paroxysmal atrial fibrillation; I25.5 Ischemic cardiomyopathy; I69.320 Aphasia following cerebral infarction; E78.5 Hyperlipidemia, unspecified; F03.90 Unspecified dementia, unspecified severity, without behavioral disturbance, psychotic disturbance, mood disturbance, and anxiety; I27.20 Pulmonary hypertension, unspecified; F32.A Depression, unspecified; F43.10 Post-traumatic stress disorder, unspecified; H91.90 Unspecified hearing loss, unspecified ear; Z79.01 Long term (current) use of anticoagulants; Z79.82 Long term (current) use of aspirin; Z79.899 Other long term (current) drug therapy; Z93.1 Gastrostomy status; Z95.0 Presence of cardiac pacemaker; Z95.5 Presence of coronary angioplasty implant and graft; Z95.810 Presence of automatic (implantable) cardiac defibrillator; Z88.8 Allergy status to other drugs, medicaments and biological substances; Z88.1 Allergy status to other antibiotic agents; Z88.2 Allergy status to sulfonamides; L98.9 Disorder of the skin and subcutaneous tissue, unspecified
CPT/HCPCS: 36415; 36600; 71046; 74018; 80053; 82805; 83605; 83880; 84484; 85025; 85610; 85730; 93005; 94640; 94760; 99285

== ENCOUNTER 2021-08-18 12:16 | Inpatient (IN) | payer OTHER, MEDICARE ==
--- NOTE | 2021-08-18 12:51 | ED ---
Extremity Problem HPI - General Chief complaint: Extremity Problem,Nontraumatic Stated complaint: CHF/Water Retention Time Seen by Provider: 08/18/21 12:34 Source: patient, family, RN notes reviewed Mode of arrival: wheelchair Limitations: no limitations - History of Present Illness Initial comments: This is a 71-year-old male who presents to the emergency department for bilateral lower extremity edema and urinary retention. His believes that both of these symptoms started 3 days ago. He has never had swelling like this in his legs before. His states that he is on 40 mg of Lasix daily, and usually produces a significant amount of urine. However yesterday, he only urinated 3 times. He is also noted to have a nonhealing wound on the right lower extremity with surrounding erythema. This has been present since May of this year. They have been on multiple rounds of antibiotics, and are waiting for an appointment with a general surgeon. Patient does state that this is fairly painful. His also states that he looks fairly pale in the face. Additionally, the patient reports worsening shortness of breath and chest pain, he is on 3 L of oxygen via nasal cannula at home for COPD and has not increased his oxygen use since the onset of symptoms. Denies any fevers, chills, sore throat, cough, palpitations, abdominal pain, nausea, vomiting, diarrhea, back pain, or headaches. MD Complaint: extremity pain, extremity swelling Onset/Timin -: days(s) Location: bilateral lower extremity History of Same: No - Related Data Home Medications Medication Instructions Recorded Confirmed Aspirin [Adult Low Dose Aspirin EC] 81 mg PO DAILY 09/02/17 08/18/21 Omeprazole [PriLOSEC] 20 mg PO BID 09/02/17 08/18/21 Sertraline HCl [Zoloft] 100 mg PO BID 09/02/17 08/18/21 allopurinoL [Zyloprim] 100 mg PO BID 09/02/17 08/18/21 Acetaminophen-Codeine 300-30mg 1 tab PO TID PRN 04/01/19 08/18/21 [Tylenol w/codeine #3] Rosuvastatin Calcium [Crestor] 20 mg PO HS 08/20/19 08/18/21 Albuterol Sulfate [Albuterol 2 puff INHALATION RT-QID PRN 12/27/20 08/18/21 Sulfate Hfa] Apixaban [Eliquis] 5 mg PO BID 12/27/20 08/18/21 Jevity 1.5 Jakob Liquid 2 can PO TID 12/27/20 08/18/21 Metoprolol Succinate (ER) [Toprol 100 mg PO DAILY 12/27/20 08/18/21 XL] Spironolactone 25 mg PO DAILY 12/27/20 08/18/21 lisinopriL [Zestril] 2.5 mg PO DAILY 12/27/20 08/18/21 Ipratropium-Albuterol Nebulize 3 ml INHALATION RT-QID 02/08/21 08/18/21 [Duoneb 0.5 mg-3 mg/3 ml Soln] Mag-Ox 420mg 420 mg PO BID 02/08/21 08/18/21 Potassium Chloride [Klor-Con 10 ER] 10 meq PO DAILY 02/08/21 08/18/21 Gabapentin [Neurontin] 600 mg PO TID 07/20/21 08/18/21 Previous Rx's Medication Instructions Recorded Furosemide [Lasix] 40 mg PO DAILY #30 07/23/21 Thiamine [Vitamin B-1] 100 mg PO DAILY #30 tab 07/23/21 Allergies Allergy/AdvReac Type Severity Reaction Status Date / Time fluticasone Allergy Dyspnea Verified 08/18/21 13:51 [From Wixela Inhub] metolazone [From Zaroxolyn] Allergy Rash/Hives Verified 08/18/21 13:51 salmeterol Allergy Dyspnea Verified 08/18/21 13:51 [From Wixela Inhub] warfarin [From Coumadin] Allergy Unknown Verified 08/18/21 13:51 fluvastatin AdvReac weakness/muscle Verified 08/18/21 13:51 pain simvastatin AdvReac muscle pain Verified 08/18/21 13:51 sulfamethoxazole AdvReac Abdominal Verified 08/18/21 13:51 [From Bactrim] Pain trimethoprim [From Bactrim] AdvReac Abdominal Verified 08/18/21 13:51 Pain Review of Systems ROS Statement: Those systems with pertinent positive or pertinent negative responses have been documented in the HPI. ROS Other: All systems not noted in ROS Statement are negative. 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 sided weakness,cataracts, bruises easily due to coumadin,does not wear cpap,neuropathy moe. feet History of Any Multi-Drug Resistant Organisms: None Reported Past Surgical History: AICD, Heart Catheterization With Stent Additional Past Surgical History / Comment(s): AICD/Pacemaker, PEG tube placed in [address] Anglin in 2019 Past Anesthesia/Blood Transfusion Reactions: No Reported Reaction Date of Last Stent Placement:: unk Type of Cardiac Device: AICD Device Placement Date:: 2009 Past Psychological History: Anxiety, Depression, PTSD Smoking Status: Current every day smoker Past Alcohol Use History: Daily, Heavy Past Drug Use History: None Reported - Past Family History Brother(s) Family Medical History: Deep Vein Thrombosis (DVT) General Exam Limitations: no limitations General appearance: alert, in no apparent distress Head exam: Present: atraumatic, normocephalic, normal inspection Respiratory exam: Present: decreased breath sounds. Absent: wheezes, rales, rhonchi Cardiovascular Exam: Present: regular rate, normal rhythm, normal heart sounds. Absent: systolic murmur, diastolic murmur, rubs, gallop, clicks Extremities exam: Present: other (2+ pitting edema in the bilateral lower extremities.) Neurological exam: Present: alert, oriented X3, CN II-XII intact Psychiatric exam: Present: normal affect, normal mood Skin exam: Present: warm, dry, pallor, other (2 x 2 centimeter nonhealing wound with eschar formation on the lateral aspect of the right lower leg. There is surrounding erythema and swelling. Tender to palpation.) Course Vital Signs 08/18/21 08/18/21 08/18/21 12:18 12:30 14:54 Temperature 97.5 F L Pulse Rate 73 69 Respiratory 18 20 20 Rate Blood Pressure 113/74 122/85 O2 Sat by Pulse 98 100 Oximetry Medical Decision Making - Medical Decision Making This is a 71-year-old male who presents to the emergency department for urinary retention and bilateral pitting edema. Lab work, chest x-ray, and bladder scan ordered. BNP is elevated at 25,700, however this has not significantly increased from last month. Chest x-ray is consistent with a CHF exacerbation, along with the bilateral pitting edema. Bladder scan only revealed 40 mL. Patient expresses concern about going home given the chest pain and progressive dyspnea. Will plan to admit the patient for diuresis and management of symptoms. This case was discussed in detail with the attending ED physician. Presentation, findings, and treatment plan discussed in detail as well. - Lab Data Result diagrams: 08/18/21 12:50 08/18/21 12:50 Lab Results 08/18/21 08/18/21 08/18/21 Range/Units 12:50 12:50 12:50 WBC 5.6 (3.8-10.6) k/uL RBC 4.34 (4.30-5.90) m/uL Hgb 12.9 L (13.0-17.5) gm/dL Hct 43.9 (39.0-53.0) % MCV 101.2 H (80.0-100.0) fL MCH 29.7 (25.0-35.0) pg MCHC 29.4 L (31.0-37.0) g/dL RDW 16.0 H (11.5-15.5) % Plt Count 125 L (150-450) k/uL MPV 10.3 Neutrophils % 75 % Lymphocytes % 14 % Monocytes % 6 % Eosinophils % 2 % Basophils % 1 % Neutrophils # 4.2 (1.3-7.7) k/uL Lymphocytes # 0.8 L (1.0-4.8) k/uL Monocytes # 0.3 (0-1.0) k/uL Eosinophils # 0.1 (0-0.7) k/uL Basophils # 0.0 (0-0.2) k/uL Hypochromasia Marked Anisocytosis Slight Macrocytosis Slight PT 11.6 (9.0-12.0) sec INR 1.1 (<1.2) APTT 25.9 (22.0-30.0) sec Sodium 140 (137-145) mmol/L Potassium 5.1 (3.5-5.1) mmol/L Chloride 99 (98-107) mmol/L Carbon Dioxide 35 H (22-30) mmol/L Anion Gap 6 mmol/L BUN 46 H (9-20) mg/dL Creatinine 1.36 H (0.66-1.25) mg/dL Est GFR (CKD-EPI)AfAm 59 (>60 ml/min/1.73 sqM) Est GFR (CKD-EPI)NonAf 51 (>60 ml/min/1.73 sqM) Glucose 97 (74-99) mg/dL Plasma Lactic Acid Marlon (0.7-2.0) mmol/L Calcium 9.2 (8.4-10.2) mg/dL Total Bilirubin 0.7 (0.2-1.3) mg/dL AST 35 (17-59) U/L ALT 18 (4-49) U/L Alkaline Phosphatase 112 (38-126) U/L Troponin I (0.000-0.034) ng/mL NT-Pro-B Natriuret Pep pg/mL Total Protein 6.9 (6.3-8.2) g/dL Albumin 3.9 (3.5-5.0) g/dL Urine Color Urine Appearance (Clear) Urine pH (5.0-8.0) Ur Specific [place] (1.001-1.035) Urine Protein (Negative) Urine Glucose (UA) (Negative) Urine Ketones (Negative) Urine Blood (Negative) Urine Nitrite (Negative) Urine Bilirubin (Negative) Urine Urobilinogen (<2.0) mg/dL Ur Leukocyte Esterase (Negative) Urine RBC (0-5) /hpf Urine WBC (0-5) /hpf Ur Squamous Epith Cells (0-4) /hpf Urine Bacteria (None) /hpf Hyaline Casts (0-2) /lpf Urine Mucus (None) /hpf 08/18/21 08/18/21 08/18/21 Range/Units 12:50 12:50 12:50 WBC (3.8-10.6) k/uL RBC (4.30-5.90) m/uL Hgb (13.0-17.5) gm/dL Hct (39.0-53.0) % MCV (80.0-100.0) fL MCH (25.0-35.0) pg MCHC (31.0-37.0) g/dL RDW (11.5-15.5) % Plt Count (150-450) k/uL MPV Neutrophils % % Lymphocytes % % Monocytes % % Eosinophils % % Basophils % % Neutrophils # (1.3-7.7) k/uL Lymphocytes # (1.0-4.8) k/uL Monocytes # (0-1.0) k/uL Eosinophils # (0-0.7) k/uL Basophils # (0-0.2) k/uL Hypochromasia Anisocytosis Macrocytosis PT (9.0-12.0) sec INR (<1.2) APTT (22.0-30.0) sec Sodium (137-145) mmol/L Potassium (3.5-5.1) mmol/L Chloride (98-107) mmol/L Carbon Dioxide (22-30) mmol/L Anion Gap mmol/L BUN (9-20) mg/dL Creatinine (0.66-1.25) mg/dL Est GFR (CKD-EPI)AfAm (>60 ml/min/1.73 sqM) Est GFR (CKD-EPI)NonAf (>60 ml/min/1.73 sqM) Glucose (74-99) mg/dL Plasma Lactic Acid Marlon 1.0 (0.7-2.0) mmol/L Calcium (8.4-10.2) mg/dL Total Bilirubin (0.2-1.3) mg/dL AST (17-59) U/L ALT (4-49) U/L Alkaline Phosphatase (38-126) U/L Troponin I 0.030 (0.000-0.034) ng/mL NT-Pro-B Natriuret Pep 48306 pg/mL Total Protein (6.3-8.2) g/dL Albumin (3.5-5.0) g/dL Urine Color Urine Appearance (Clear) Urine pH (5.0-8.0) Ur Specific [place] (1.001-1.035) Urine Protein (Negative) Urine Glucose (UA) (Negative) Urine Ketones (Negative) Urine Blood (Negative) Urine Nitrite (Negative) Urine Bilirubin (Negative) Urine Urobilinogen (<2.0) mg/dL Ur Leukocyte Esterase (Negative) Urine RBC (0-5) /hpf Urine WBC (0-5) /hpf Ur Squamous Epith Cells (0-4) /hpf Urine Bacteria (None) /hpf Hyaline Casts (0-2) /lpf Urine Mucus (None) /hpf 05/20/22 Range/Units 13:30 WBC (3.8-10.6) k/uL RBC (4.30-5.90) m/uL Hgb (13.0-17.5) gm/dL Hct (39.0-53.0) % MCV (80.0-100.0) fL MCH (25.0-35.0) pg MCHC (31.0-37.0) g/dL RDW (11.5-15.5) % Plt Count (150-450) k/uL MPV Neutrophils % % Lymphocytes % % Monocytes % % Eosinophils % % Basophils % % Neutrophils # (1.3-7.7) k/uL Lymphocytes # (1.0-4.8) k/uL Monocytes # (0-1.0) k/uL Eosinophils # (0-0.7) k/uL Basophils # (0-0.2) k/uL Hypochromasia Anisocytosis Macrocytosis PT (9.0-12.0) sec INR (<1.2) APTT (22.0-30.0) sec Sodium (137-145) mmol/L Potassium (3.5-5.1) mmol/L Chloride (98-107) mmol/L Carbon Dioxide (22-30) mmol/L Anion Gap mmol/L BUN (9-20) mg/dL Creatinine (0.66-1.25) mg/dL Est GFR (CKD-EPI)AfAm (>60 ml/min/1.73 sqM) Est GFR (CKD-EPI)NonAf (>60 ml/min/1.73 sqM) Glucose (74-99) mg/dL Plasma Lactic Acid Marlon (0.7-2.0) mmol/L Calcium (8.4-10.2) mg/dL Total Bilirubin (0.2-1.3) mg/dL AST (17-59) U/L ALT (4-49) U/L Alkaline Phosphatase (38-126) U/L Troponin I (0.000-0.034) ng/mL NT-Pro-B Natriuret Pep pg/mL Total Protein (6.3-8.2) g/dL Albumin (3.5-5.0) g/dL Urine Color Light Yellow Urine Appearance Clear (Clear) Urine pH 6.0 (5.0-8.0) Ur Specific [place] 1.009 (1.001-1.035) Urine Protein 2+ H (Negative) Urine Glucose (UA) Negative (Negative) Urine Ketones Negative (Negative) Urine Blood Negative (Negative) Urine Nitrite Negative (Negative) Urine Bilirubin Negative (Negative) Urine Urobilinogen <2.0 (<2.0) mg/dL Ur Leukocyte Esterase Small H (Negative) Urine RBC <1 (0-5) /hpf Urine WBC 2 (0-5) /hpf Ur Squamous Epith Cells <1 (0-4) /hpf Urine Bacteria Rare H (None) /hpf Hyaline Casts 11 H (0-2) /lpf Urine Mucus Rare H (None) /hpf - EKG Data EKG Comments: Electronic ventricular pacemaker. Ventricular rate 71 bpm, QRS duration 173 ms, QTC 487 ms. - Radiology Data Radiology results: report reviewed, image reviewed Disposition Clinical Impression: CHF exacerbation Disposition: ADMITTED IP TO THIS HOSP
[2021-08-18 13:02] LABS: Anisocytosis Slight; Basophils % (A) 1 %; Eosinophils # (A) 0.1 k/uL (0-0.7); Eosinophils % (A) 2 %; HCT 43.9 % (39.0-53.0); HGB 12.9 gm/dL (13.0-17.5); Hypochromasia Marked; Lymphocytes # (A) 0.8 k/uL (1.0-4.8); Lymphocytes % (A) 14 %; MCH 29.7 pg (25.0-35.0); MCHC 29.4 g/dL (31.0-37.0); MCV 101.2 fL (80.0-100.0); Macrocytosis Slight; Mean Platelet Volume 10.3; Monocytes # (A) 0.3 k/uL (0-1.0); Monocytes % (A) 6 %; Neutrophils # (A) 4.2 k/uL (1.3-7.7); Neutrophils % (A) 75 %; Platelet Count 125 k/uL (150-450); RBC 4.34 m/uL (4.30-5.90); WBC 5.6 k/uL (3.8-10.6)
[2021-08-18 13:11] LABS: Albumin 3.9 g/dL (3.5-5.0); Calcium 9.2 mg/dL (8.4-10.2); Potassium 5.1 mmol/L (3.5-5.1); Total Bilirubin 0.7 mg/dL (0.2-1.3); Total Protein 6.9 g/dL (6.3-8.2)
[2021-08-18 13:15] LABS: INR 1.1 (<1.2); Partial Thromboplastin Time 25.9 sec (22.0-30.0); Prothrombin Time 11.6 sec (9.0-12.0)
--- NOTE | 2021-08-18 13:39 | XR ---
EXAMINATION TYPE: XR chest 2V DATE OF EXAM: 08/18/2021 COMPARISON: Chest x-ray July 20, 2021 HISTORY: Difficulty in breathing. History of CHF. TECHNIQUE: Frontal and lateral views of the chest are obtained. FINDINGS: There is marked cardiomegaly with a pacemaker/defibrillator redemonstrated. Mild increased central vascular congestion without pleural effusion or pneumothorax.. The osseous structures are demineralized. Multilevel spurring in the spine. Bilateral hilar prominence consistent with underlyin g pulmonary hypertension. Stable right paratracheal fullness from prior studies. IMPRESSION: Cardiomegaly with mild to moderate central vascular congestion favoring CHF exacerbation . Correlate clinically.
[2021-08-18 14:07] LABS: Appearance,Urine Clear (Clear); Bacteria,Urine Rare /hpf; Bilirubin,Urine Negative (Negative); Blood,Urine Negative (Negative); Color,Urine Light Yellow; Glucose,Urine (UA) Negative (Negative); Hyaline Casts,Urine 11 /lpf (0-2); Ketones,Urine Negative (Negative); Leukocyte Esterase,Urine Small (Negative); Mucus,Urine Rare /hpf; Nitrite,Urine Negative (Negative); Protein,Urine 2+ (Negative); RBC,Urine <1 /hpf (0-5); Specific Gravity,Urine 1.009 (1.001-1.035); Squamous Epithelial Cell,Urine <1 /hpf (0-4); Urobilinogen,Urine <2.0 mg/dL (<2.0); WBC,Urine 2 /hpf (0-5)
[2021-08-18] MEDS ORDERED: oxyCODONE-APAP 5-325MG 1 EACH TAB PO PRN (15:58)
[2021-08-18] MEDS ORDERED: HYDROcodone/APAP 5-325MG 1 EACH TAB PO PRN (15:58)
[2021-08-18] MEDS ORDERED: ACETAMINOPHEN TAB 325 MG TAB PO PRN (15:58)
[2021-08-18] MEDS ORDERED: NALOXONE 0.4 MG/ML 1 ML VIAL IV PRN (15:58)
[2021-08-18] MEDS ORDERED: IPRATROPIUM-ALBUTEROL 3 ML NEB INHALATION PRN (16:24)
[2021-08-18] MEDS ORDERED: ALBUTEROL NEBULIZED 2.5 MG/3 ML INHALATION PRN (16:24)
[2021-08-18] MEDS ORDERED: Acetaminophen-Codeine 300-30mg TAB PO PRN (16:24)
--- NOTE | 2021-08-18 16:38 | P.HPIM ---
History of Present Illness H&P Date: 08/18/21 Chief Complaint: Worsening lower extremity edema Patient is a 71-year-old male with congestive systolic heart failure with an EF of less than 20%, COPD on 3 L nasal cannula, atrial fibrillation, CVA, hyperlipidemia, hypertension who presents to the ED with worsening lower extremity edema. Patient was recently admitted about a month ago for COPD exacerbation. Today patient states that the lower extremity edema has been worsening over the past week. Patient states that his shortness of breath is close to his baseline. Patient denies any increase in his fluid intake or any change in his diet with excess salt. He states that he has been compliant with his medications. In the ED patient's creatinine was 1.36 (baseline is 1.6), chest x-ray showed cardiomegaly with mild increased central vascular congestion without pleural effusion or pneumothorax. Patient's BNP is similar to BNP on last admission which was around 25,000. Review of Systems 10 ROS reviewed and are negative except as noted in HPI Past Medical History Past Medical History: Atrial Fibrillation, Heart Failure, COPD, CVA/TIA, Eye Disorder, Hearing Disorder / Deafness, Hyperlipidemia, Hypertension, Skin Disorder, Sleep Apnea/CPAP/BIPAP Additional Past Medical History / Comment(s): CVA approx 2009-speech affected and slight rt. sided weakness,cataracts, bruises easily due to coumadin,does not wear cpap,neuropathy moe. feet History of Any Multi-Drug Resistant Organisms: None Reported Past Surgical History: AICD, Heart Catheterization With Stent Additional Past Surgical History / Comment(s): AICD/Pacemaker, PEG tube placed in [address] Anglin in 2019 Past Anesthesia/Blood Transfusion Reactions: No Reported Reaction Date of Last Stent Placement:: unk Type of Cardiac Device: AICD Device Placement Date:: 2009 Past Psychological History: Anxiety, Depression, PTSD Smoking Status: Current every day smoker Past Alcohol Use History: Daily, Heavy Past Drug Use History: None Reported - Past Family History Brother(s) Family Medical History: Deep Vein Thrombosis (DVT) Medications and Allergies Home Medications Medication Instructions Recorded Confirmed Type Aspirin [Adult Low Dose Aspirin EC] 81 mg PO DAILY 09/02/17 08/18/21 History Omeprazole [PriLOSEC] 20 mg PO BID 09/02/17 08/18/21 History Sertraline HCl [Zoloft] 100 mg PO BID 09/02/17 08/18/21 History allopurinoL [Zyloprim] 100 mg PO BID 09/02/17 08/18/21 History Acetaminophen-Codeine 300-30mg 1 tab PO TID PRN 04/01/19 08/18/21 History [Tylenol w/codeine #3] Rosuvastatin Calcium [Crestor] 20 mg PO HS 08/20/19 08/18/21 History Albuterol Sulfate [Albuterol 2 puff INHALATION RT-QID PRN 12/27/20 08/18/21 History Sulfate Hfa] Apixaban [Eliquis] 5 mg PO BID 12/27/20 08/18/21 History Jevity 1.5 Jakob Liquid 2 can PO TID 12/27/20 08/18/21 History Metoprolol Succinate (ER) [Toprol 100 mg PO DAILY 12/27/20 08/18/21 History XL] Spironolactone 25 mg PO DAILY 12/27/20 08/18/21 History lisinopriL [Zestril] 2.5 mg PO DAILY 12/27/20 08/18/21 History Ipratropium-Albuterol Nebulize 3 ml INHALATION RT-QID 02/08/21 08/18/21 History [Duoneb 0.5 mg-3 mg/3 ml Soln] Mag-Ox 420mg 420 mg PO BID 02/08/21 08/18/21 History Potassium Chloride [Klor-Con 10 ER] 10 meq PO DAILY 02/08/21 08/18/21 History Gabapentin [Neurontin] 600 mg PO TID 07/20/21 08/18/21 History Furosemide [Lasix] 40 mg PO DAILY #30 07/23/21 08/18/21 Rx Thiamine [Vitamin B-1] 100 mg PO DAILY #30 tab 07/23/21 08/18/21 Rx Allergies Allergy/AdvReac Type Severity Reaction Status Date / Time fluticasone Allergy Dyspnea Verified 08/18/21 13:51 [From Wixela Inhub] metolazone [From Zaroxolyn] Allergy Rash/Hives Verified 08/18/21 13:51 salmeterol Allergy Dyspnea Verified 08/18/21 13:51 [From Wixela Inhub] warfarin [From Coumadin] Allergy Unknown Verified 08/18/21 13:51 fluvastatin AdvReac weakness/muscle Verified 08/18/21 13:51 pain simvastatin AdvReac muscle pain Verified 08/18/21 13:51 sulfamethoxazole AdvReac Abdominal Verified 08/18/21 13:51 [From Bactrim] Pain trimethoprim [From Bactrim] AdvReac Abdominal Verified 08/18/21 13:51 Pain Physical Exam Osteopathic Statement: *. No significant issues noted on an osteopathic structural exam other than those noted in the History and Physical/Consult. Vitals: Vital Signs Temp Pulse Resp BP Pulse Ox 08/18/21 14:54 69 20 122/85 100 08/18/21 12:30 20 08/18/21 12:18 97.5 F L 73 18 113/74 98 Intake and Output 08/18/21 08/18/21 08/18/21 06:59 14:59 22:59 Other: Weight 99.79 kg General: [Alert and oriented, well nourished, no acute distress, patient appears chronically debilitated]. Eye: [PERRL, EOMI, normal conjunctiva]. HENT: [Normocephalic, clear tympanic membranes, normal hearing, moist oral mucosa, no scleral icterus, no sinus tenderness]. Neck: [Supple, non-tender, no carotid bruits, no JVD, no lymphadenopathy]. Lungs: [Diminished breath sounds bilaterally, non-labored respiration]. Heart: [Normal rate, regular rhythm, no murmur, gallop or + 2 pitting edema in bilateral lower extremities]. Abdomen: [Soft, non-tender, non-distended, normal bowel sounds, no masses]. Musculoskeletal: [Normal range of motion and strength, no tenderness or s welling]. Skin: [Bilateral lower extremities are cold and dusky]. Neurologic: [Awake, alert, and oriented X3, CN II-XII intact]. Psychiatric: [Cooperative, appropriate mood and affect]. Results CBC & Chem 7: 08/18/21 12:50 08/18/21 12:50 Labs: Abnormal Lab Results - Last 24 Hours (Table) 08/18/21 08/18/21 08/18/21 Range/Units 12:50 12:50 13:30 Hgb 12.9 L (13.0-17.5) gm/dL MCV 101.2 H (80.0-100.0) fL MCHC 29.4 L (31.0-37.0) g/dL RDW 16.0 H (11.5-15.5) % Plt Count 125 L (150-450) k/uL Lymphocytes # 0.8 L (1.0-4.8) k/uL Carbon Dioxide 35 H (22-30) mmol/L BUN 46 H (9-20) mg/dL Creatinine 1.36 H (0.66-1.25) mg/dL Urine Protein 2+ H (Negative) Ur Leukocyte Esterase Small H (Negative) Urine Bacteria Rare H (None) /hpf Hyaline Casts 11 H (0-2) /lpf Urine Mucus Rare H (None) /hpf Assessment and Plan Assessment: #Acute on chronic systolic heart failure -Patient's lower extremities are cold and dusky concerning for poor circulation. We'll consult cardiology as patient may need milrinone drip. -We'll start patient on IV Lasix 40 mg twice a day. Monitor renal function as well as electrolytes closely -Resume spironolactone, lisinopril, metoprolol -Strict I's and O's and daily weights #A. fib with RVR -Resume metoprolol and Eliquis -Heart rate controlled #COPD not in exacerbation Chronic hypoxia -Patient currently satting well on his home O2 of 3 L -Resume home inhalers #History of CVA -Resume aspirin and statin #Hypertension -Resume home meds CODE STATUS:full code DVT prophylaxis: Eliquis DPOA: Discussed with: Patient, ER, rn Anticipated length of stay > than [address]: home A total of 75 minutes was spent on the care of this complex patient more than 50% of the time was spent in counseling and care coordination.
[2021-08-18] MEDS: FUROSEMIDE 10 MG/ML 4 ML VIAL IV SCH ×2 (17:24→21:48)
[2021-08-18] MEDS: SPIRONOLACTONE 25 MG TAB PO SCH (17:24)
[2021-08-18] MEDS: NON FORMULARY DRUG (Rosuvastatin Calcium [Crestor] 40 MG Tablet) PO SCH (21:45)
[2021-08-18] MEDS: APIXABAN 5 MG TAB PO SCH (21:47)
[2021-08-18] MEDS: GABAPENTIN 300 MG CAP PO SCH (21:47)
[2021-08-18] MEDS: MAGNESIUM OXIDE 400 MG TAB PO SCH (21:48)
[2021-08-18] MEDS: SERTRALINE 100 MG TAB PO SCH (21:48)
[2021-08-18] MEDS: allopurinoL 100 MG TAB PO SCH (21:54)
[2021-08-18] MEDS ORDERED: NON FORMULARY DRUG (Jevity 1.5 Cal Liquid 1,000 ML Ml) PO SCH (22:00)
[2021-08-19] MEDS: PANTOPRAZOLE 40 MG TABLET PO SCH (06:29)
[2021-08-19] MEDS: SPIRONOLACTONE 25 MG TAB PO SCH (07:41)
[2021-08-19] MEDS: ASPIRIN 81 MG PO SCH (07:41)
[2021-08-19] MEDS: MAGNESIUM OXIDE 400 MG TAB PO SCH ×2 (07:41→21:49)
[2021-08-19] MEDS: POTASSIUM CHLORIDE ER 10 MEQ TAB.ER.PRT PO SCH (07:41)
[2021-08-19] MEDS: GABAPENTIN 300 MG CAP PO SCH ×3 (07:41→21:49)
[2021-08-19] MEDS: THIAMINE 100 MG TAB PO SCH (07:41)
[2021-08-19] MEDS: METOPROLOL SUCCINATE (ER) 100 MG TAB.ER.24H PO SCH (07:42)
[2021-08-19] MEDS: SERTRALINE 100 MG TAB PO SCH ×2 (07:42→21:49)
[2021-08-19] MEDS: FUROSEMIDE 10 MG/ML 4 ML VIAL IV SCH (07:42)
[2021-08-19] MEDS: APIXABAN 5 MG TAB PO SCH ×2 (07:42→21:49)
[2021-08-19] MEDS: allopurinoL 100 MG TAB PO SCH ×2 (07:42→21:49)
[2021-08-19 11:13] LABS: Anisocytosis Slight; Basophils % (A) 1 %; Eosinophils # (A) 0.1 k/uL (0-0.7); Eosinophils % (A) 2 %; HCT 42.4 % (39.0-53.0); HGB 12.5 gm/dL (13.0-17.5); Hypochromasia Marked; Lymphocytes # (A) 0.9 k/uL (1.0-4.8); Lymphocytes % (A) 16 %; MCH 30.3 pg (25.0-35.0); MCHC 29.5 g/dL (31.0-37.0); MCV 102.7 fL (80.0-100.0); Macrocytosis Moderate; Mean Platelet Volume 9.7; Monocytes # (A) 0.4 k/uL (0-1.0); Monocytes % (A) 7 %; Neutrophils % (A) 72 %; Platelet Count 144 k/uL (150-450); RBC 4.12 m/uL (4.30-5.90); RDW 16.2 % (11.5-15.5); WBC 5.5 k/uL (3.8-10.6)
[2021-08-19 11:28] LABS: Calcium 9.1 mg/dL (8.4-10.2); Magnesium 2.2 mg/dL (1.6-2.3); Potassium 4.7 mmol/L (3.5-5.1)
--- NOTE | 2021-08-19 11:54 | P.PN ---
Subjective Progress Note Date: 08/19/21 Principal diagnosis: Acute on chronic systolic heart failure Patient stated that he is feeling much better today. He states that his lower extremity edema is also improving. Patient's bilateral lower extremities are warm to touch. Objective - Vital Signs Vital signs: Vital Signs Temp 98.3 F 08/19/21 07:37 Pulse 78 08/19/21 11:00 Resp 20 08/19/21 11:00 BP 135/51 08/19/21 11:00 Pulse Ox 91 L 08/19/21 11:00 Intake & Output 08/18/21 08/19/21 08/19/21 18:59 06:59 18:59 Intake Total 240 Output Total 300 1100 801 Balance -300 -1100 -561 Weight 99.79 kg 97.5 kg Intake: Oral 240 Output: Urine 300 1100 801 Other: Voiding Method Toilet Urinal - Exam General examination - Alert and Oriented 3 in NAD, appears chronically debilitated Heart - + S1S2 no murmurs Lungs - diminished breath sound bilaterally Abdomen soft NT ND +ve BS Extremities - +1 pitting edema in bilateral lower extremities 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 - Moving all 4 extremities spontaneously Psych - Calm and cooperative - Labs CBC & Chem 7: 08/19/21 10:46 08/19/21 10:46 Labs: Abnormal Lab Results - Last 24 Hours (Table) 08/18/21 08/18/21 08/18/21 Range/Units 12:50 12:50 13:30 RBC (4.30-5.90) m/uL Hgb 12.9 L (13.0-17.5) gm/dL MCV 101.2 H (80.0-100.0) fL MCHC 29.4 L (31.0-37.0) g/dL RDW 16.0 H (11.5-15.5) % Plt Count 125 L (150-450) k/uL Lymphocytes # 0.8 L (1.0-4.8) k/uL Chloride (98-107) mmol/L Carbon Dioxide 35 H (22-30) mmol/L BUN 46 H (9-20) mg/dL Creatinine 1.36 H (0.66-1.25) mg/dL Glucose (74-99) mg/dL Urine Protein 2+ H (Negative) Ur Leukocyte Esterase Small H (Negative) Urine Bacteria Rare H (None) /hpf Hyaline Casts 11 H (0-2) /lpf Urine Mucus Rare H (None) /hpf 08/19/21 08/19/21 Range/Units 10:46 10:46 RBC 4.12 L (4.30-5.90) m/uL Hgb 12.5 L (13.0-17.5) gm/dL MCV 102.7 H (80.0-100.0) fL MCHC 29.5 L (31.0-37.0) g/dL RDW 16.2 H (11.5-15.5) % Plt Count 144 L (150-450) k/uL Lymphocytes # 0.9 L (1.0-4.8) k/uL Chloride 96 L (98-107) mmol/L Carbon Dioxide 42 H* (22-30) mmol/L BUN 49 H (9-20) mg/dL Creatinine 1.53 H (0.66-1.25) mg/dL Glucose 117 H (74-99) mg/dL Urine Protein (Negative) Ur Leukocyte Esterase (Negative) Urine Bacteria (None) /hpf Hyaline Casts (0-2) /lpf Urine Mucus (None) /hpf Assessment and Plan Assessment: #Acute on chronic systolic heart failure -Cardiology consult -Patient now appears euvolemic. We'll transition to Lasix 40 mg by mouth twice a day -Resume spironolactone, lisinopril, metoprolol -Strict I's and O's and daily weights #A. fib with RVR -Resume metoprolol and Eliquis -Heart rate controlled #COPD not in exacerbation Chronic hypoxia -Patient currently satting well on his home O2 of 3 L -Resume home inhalers #History of CVA -Resume aspirin and statin #Hypertension -Resume home meds Anticipate patient will be ready for discharge the next 24 hours CODE STATUS:full code DVT prophylaxis: Eliquis DPOA: Discussed with: Patient, ER, rn Anticipated length of stay: One more day Anticipated discharge place: home A total of 75 minutes was spent on the care of this complex patient more than 50% of the time was spent in counseling and care coordination.
--- NOTE | 2021-08-19 12:24 | P.CRDCN ---
History of Present Illness History of present illness: HISTORY OF PRESENTING ILLNESS This is a pleasant 71-year-old male past medical history significant for coronary artery disease, ischemic cardiomyopathy status post AICD, hypertension, chronic systolic heart failure, persistent atrial fibrillation on long-term anticoagulation and former nicotine dependence. He follows in the office with Dr. Curiel. We have been asked to see in consultation for shortness of breath. He presented to the hospital with symptoms of shortness of breath. Chest x-ray revealed pulmonary vascular congestion with an elevated proBNP. He has been started on IV diuretics. He is diuresing well. He has no lower extremity edema but does still endorse some shortness of breath. He has no chest pain or dizziness. EKG reveals ventricular paced with underlying atrial fibrillation. Laboratory data reviewed, sodium 142, potassium 4.7, CO2 42, creatinine 1.53, magnesium 2.2, troponin 0.03, NT proBNP 25,700. Most recent echocardiogram from January 2021 reveals severely impaired LV systolic function with global hypokinesia and ejection fraction of less than 20%, mild to moderate MR and moderate TR with RVSP of 47. REVIEW OF SYSTEMS At the time of my exam: CONSTITUTIONAL: Denies fever or chills. CARDIOVASCULAR: Complains of shortness of breath. Denies chest pain, orthopnea, PND or palpitations. RESPIRATORY: Denies cough. GASTROINTESTINAL: Denies abdominal pain, diarrhea, constipation, nausea or vomiting. MUSCULOSKELETAL: Denies myalgias. NEUROLOGIC: Denies numbness, tingling, headache or weakness. ENDOCRINE: Denies fatigue, weight change, polydipsia or polyurina. GENITOURINARY: Denies burning, hematuria or urgency with micturation. HEMATOLOGIC: Denies history of anemia or bleeding. PHYSICAL EXAMINATION Blood pressure 135/51 heart rate 78 afebrile and maintaining oxygen saturation on nasal cannula. CONSTITUTIONAL: No apparent distress. HEENT: Head is normocephalic. Pupils are equal, round. Sclerae anicteric. Mucous membranes of the mouth are moist. No JVD. No carotid bruit. CHEST EXAMINATION: Diminished bilaterally, expiratory wheezes throughout and bibasilar crackles. No chest wall tenderness is noted on palpation or with deep breathing. HEART EXAMINATION: Regular rate and rhythm. S1, S2 heard. No murmurs, gallops or rub. ABDOMEN: Soft, nontender. EXTREMITIES: 2+ peripheral pulses, no lower extremity edema and no calf tenderness. NEUROLOGIC EXAMINATION: Patient is awake, alert and oriented x3. ASSESSMENT Acute on chronic systolic heart failure Chronic persistent atrial fibrillation Ischemic cardiomyopathy status post AICD Hypertension PLAN Continue IV diuresis for another 24 hours. Repeat BMP in the morning. Further recommendations to follow based upon clinical course. Thank you kindly for this consultation. Nurse Practitioner note has been reviewed, I agree with a documented findings and plan of care. Patient was seen and examined. 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 sided weakness,cataracts, bruises easily due to coumadin,does not wear cpap,neuropathy moe. feet History of Any Multi-Drug Resistant Organisms: None Reported Past Surgical History: AICD, Heart Catheterization With Stent Additional Past Surgical History / Comment(s): AICD/Pacemaker, PEG tube placed in [address] Anglin in 2019 Past Anesthesia/Blood Transfusion Reactions: No Reported Reaction Date of Last Stent Placement:: unk Type of Cardiac Device: AICD Device Placement Date:: 2009 Past Psychological History: Anxiety, Depression, PTSD Additional Psychological History / Comment(s): PTSD 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 war Smoking Status: Former smoker Additional Past Alcohol Use History / Comment(s): states he stopped smoking three months ago Past Drug Use History: None Reported - Past Family History Brother(s) Family Medical History: Deep Vein Thrombosis (DVT) Medications and Allergies Home Medications Medication Instructions Recorded Confirmed Type Aspirin [Adult Low Dose Aspirin EC] 81 mg PO DAILY 09/02/17 08/18/21 History Omeprazole [PriLOSEC] 20 mg PO BID 09/02/17 08/18/21 History Sertraline HCl [Zoloft] 100 mg PO BID 09/02/17 08/18/21 History allopurinoL [Zyloprim] 100 mg PO BID 09/02/17 08/18/21 History Acetaminophen-Codeine 300-30mg 1 tab PO TID PRN 04/01/19 08/18/21 History [Tylenol w/codeine #3] Rosuvastatin Calcium [Crestor] 20 mg PO HS 08/20/19 08/18/21 History Albuterol Sulfate [Albuterol 2 puff INHALATION RT-QID PRN 12/27/20 08/18/21 History Sulfate Hfa] Apixaban [Eliquis] 5 mg PO BID 12/27/20 08/18/21 History Jevity 1.5 Jakob Liquid 2 can PO TID 12/27/20 08/18/21 History Metoprolol Succinate (ER) [Toprol 100 mg PO DAILY 12/27/20 08/18/21 History XL] Spironolactone 25 mg PO DAILY 12/27/20 08/18/21 History lisinopriL [Zestril] 2.5 mg PO DAILY 12/27/20 08/18/21 History Ipratropium-Albuterol Nebulize 3 ml INHALATION RT-QID 02/08/21 08/18/21 History [Duoneb 0.5 mg-3 mg/3 ml Soln] Mag-Ox 420mg 420 mg PO BID 02/08/21 08/18/21 History Potassium Chloride [Klor-Con 10 ER] 10 meq PO DAILY 02/08/21 08/18/21 History Gabapentin [Neurontin] 600 mg PO TID 07/20/21 08/18/21 History Furosemide [Lasix] 40 mg PO DAILY #30 07/23/21 08/18/21 Rx Thiamine [Vitamin B-1] 100 mg PO DAILY #30 tab 07/23/21 08/18/21 Rx Allergies Allergy/AdvReac Type Severity Reaction Status Date / Time fluticasone Allergy Dyspnea Verified 08/18/21 13:51 [From Wixela Inhub] metolazone [From Zaroxolyn] Allergy Rash/Hives Verified 08/18/21 13:51 salmeterol Allergy Dyspnea Verified 08/18/21 13:51 [From Wixela Inhub] warfarin [From Coumadin] Allergy Unknown Verified 08/18/21 13:51 fluvastatin AdvReac weakness/muscle Verified 08/18/21 13:51 pain simvastatin AdvReac muscle pain Verified 08/18/21 13:51 sulfamethoxazole AdvReac Abdominal Verified 08/18/21 13:51 [From Bactrim] Pain trimethoprim [From Bactrim] AdvReac Abdominal Verified 08/18/21 13:51 Pain Physical Exam Vitals: Vital Signs Temp Pulse Pulse Resp BP BP Pulse Ox 08/19/21 11:00 78 20 135/51 91 L 08/19/21 07:50 70 08/19/21 07:37 98.3 F 70 20 109/71 90 L 08/19/21 04:00 98.0 F 77 18 120/80 98 08/18/21 23:23 98.3 F 68 16 108/62 98 08/18/21 22:56 98.3 F 69 16 119/76 98 08/18/21 21:55 71 20 109/91 98 08/18/21 19:58 99 08/18/21 19:27 69 18 109/91 98 08/18/21 17:29 73 18 116/81 96 08/18/21 14:54 69 20 122/85 100 08/18/21 12:30 20 Intake and Output 08/18/21 08/19/21 08/19/21 22:59 06:59 14:59 Intake Total 240 Output Total 900 500 801 Balance -900 -500 -561 Intake: Oral 240 Output: Urine 900 500 801 Other: Voiding Method Toilet Urinal Weight 99.79 kg 97.5 kg Results 08/19/21 10:46 08/19/21 10:46 Cardiac Enzymes 08/18/21 08/18/21 Range/Units 12:50 12:50 AST 35 (17-59) U/L Troponin I 0.030 (0.000-0.034) ng/mL Coagulation 08/18/21 Range/Units 12:50 PT 11.6 (9.0-12.0) sec APTT 25.9 (22.0-30.0) sec CBC 08/18/21 08/19/21 Range/Units 12:50 10:46 WBC 5.6 5.5 (3.8-10.6) k/uL RBC 4.34 4.12 L (4.30-5.90) m/uL Hgb 12.9 L 12.5 L (13.0-17.5) gm/dL Hct 43.9 42.4 (39.0-53.0) % Plt Count 125 L 144 L (150-450) k/uL Comprehensive Metabolic Panel 08/18/21 08/19/21 Range/Units 12:50 10:46 Sodium 140 142 (137-145) mmol/L Potassium 5.1 4.7 (3.5-5.1) mmol/L Chloride 99 96 L (98-107) mmol/L Carbon Dioxide 35 H 42 H* (22-30) mmol/L BUN 46 H 49 H (9-20) mg/dL Creatinine 1.36 H 1.53 H (0.66-1.25) mg/dL Glucose 97 117 H (74-99) mg/dL Calcium 9.2 9.1 (8.4-10.2) mg/dL AST 35 (17-59) U/L ALT 18 (4-49) U/L Alkaline Phosphatase 112 (38-126) U/L Total Protein 6.9 (6.3-8.2) g/dL Albumin 3.9 (3.5-5.0) g/dL Current Medications Generic Name Dose Route Start Last Admin Trade Name Freq PRN Reason Stop Dose Admin Acetaminophen 650 mg 08/18/21 15:58 Acetaminophen Tab 325 Mg Tab PO Q6HR PRN Mild Pain or Fever > 100.5 Acetaminophen/Codeine Phosphate 1 each 08/18/21 16:24 Acetaminophen-Codeine 300-30mg Tab PO TID PRN Pain Albuterol Sulfate 2.5 mg 08/18/21 16:24 Albuterol Nebulized 2.5 Mg/3 Ml INHALATION RT-QID PRN Shortness Of Breath Albuterol/Ipratropium 3 ml 08/18/21 16:24 Ipratropium-Albuterol 3 Ml Neb INHALATION RT-QID PRN Wheezing Allopurinol 100 mg 08/18/21 21:00 08/19/21 07:42 Allopurinol 100 Mg Tab PO 100 mg BID MO Administration Apixaban 5 mg 08/18/21 21:00 08/19/21 07:42 Apixaban 5 Mg Tab PO 5 mg BID MO Administration Protocol Aspirin 81 mg 08/19/21 09:00 08/19/21 07:41 Aspirin 81 Mg PO 81 mg DAILY MO Administration Furosemide 40 mg 08/19/21 16:00 Furosemide 40 Mg Tab PO BID@0900,1600 MO Gabapentin 600 mg 08/18/21 22:00 08/19/21 07:41 Gabapentin 300 Mg Cap PO 600 mg TID MO Administration Lisinopril 2.5 mg 08/19/21 09:00 08/19/21 10:32 Lisinopril 2.5 Mg Tab PO 2.5 mg DAILY MO Administration Magnesium Oxide 400 mg 08/18/21 21:00 08/19/21 07:41 Magnesium Oxide 400 Mg Tab PO 400 mg BID MO Administration Metoprolol Succinate 100 mg 08/19/21 09:00 08/19/21 07:42 Metoprolol Succinate (Er) 100 Mg Tab.Er.24h PO 100 mg DAILY MO Administration Naloxone HCl 0.2 mg 08/18/21 15:58 Naloxone 0.4 Mg/Ml 1 Ml Vial IV Q2M PRN Opioid Reversal Non-Formulary Medication 20 mg 08/18/21 21:00 08/18/21 21:45 Rosuvastatin Calcium [Crestor] PO Not Given HS MO Pantoprazole Sodium 40 mg 08/19/21 07:30 08/19/21 06:29 Pantoprazole 40 Mg Tablet PO 40 mg AC-[id number] MO Administration Potassium Chloride 10 meq 08/19/21 09:00 08/19/21 07:41 Potassium Chloride Er 10 Meq Tab.Er.Prt PO 10 meq DAILY MO Administration Sertraline HCl 100 mg 08/18/21 21:00 08/19/21 07:42 Sertraline 100 Mg Tab PO 100 mg BID MO Administration Spironolactone 25 mg 08/18/21 16:30 08/19/21 07:41 Spironolactone 25 Mg Tab PO 25 mg DAILY MO Administration Thiamine HCl 100 mg 08/19/21 09:00 08/19/21 07:41 Thiamine 100 Mg Tab PO 100 mg DAILY MO Administration Intake and Output 08/18/21 08/19/21 08/19/21 22:59 06:59 14:59 Intake Total 240 Output Total 900 500 801 Balance -900 -500 -561 Intake: Oral 240 Output: Urine 900 500 801 Other: Voiding Method Toilet Urinal Weight 99.79 kg 97.5 kg 08/19/21 10:46 08/19/21 10:46
[2021-08-19] MEDS: FUROSEMIDE 40 MG TAB PO SCH (15:02)
[2021-08-19] MEDS: NON FORMULARY DRUG (Rosuvastatin Calcium [Crestor] 40 MG Tablet) PO SCH (21:49)
[2021-08-20] MEDS: PANTOPRAZOLE 40 MG TABLET PO SCH (07:33)
[2021-08-20] MEDS: APIXABAN 5 MG TAB PO SCH ×2 (07:40→21:09)
[2021-08-20] MEDS: GABAPENTIN 300 MG CAP PO SCH ×3 (07:40→21:09)
[2021-08-20] MEDS: METOPROLOL SUCCINATE (ER) 100 MG TAB.ER.24H PO SCH (07:40)
[2021-08-20] MEDS: SERTRALINE 100 MG TAB PO SCH ×2 (07:40→21:09)
[2021-08-20] MEDS: FUROSEMIDE 40 MG TAB PO SCH ×2 (07:40→15:12)
[2021-08-20] MEDS: POTASSIUM CHLORIDE ER 10 MEQ TAB.ER.PRT PO SCH (07:40)
[2021-08-20] MEDS: allopurinoL 100 MG TAB PO SCH ×2 (07:40→21:09)
[2021-08-20] MEDS: MAGNESIUM OXIDE 400 MG TAB PO SCH ×2 (07:40→21:09)
[2021-08-20] MEDS: ASPIRIN 81 MG PO SCH (07:41)
[2021-08-20] MEDS: SPIRONOLACTONE 25 MG TAB PO SCH (07:41)
[2021-08-20] MEDS: THIAMINE 100 MG TAB PO SCH (07:41)
[2021-08-20 09:09] LABS: Anisocytosis Slight; Basophils % (A) 0 %; Eosinophils # (A) 0.1 k/uL (0-0.7); Eosinophils % (A) 2 %; HCT 37.8 % (39.0-53.0); HGB 11.8 gm/dL (13.0-17.5); Hypochromasia Marked; Lymphocytes # (A) 0.7 k/uL (1.0-4.8); Lymphocytes % (A) 16 %; MCH 31.4 pg (25.0-35.0); MCHC 31.3 g/dL (31.0-37.0); MCV 100.4 fL (80.0-100.0); Macrocytosis Slight; Mean Platelet Volume 9.6; Monocytes # (A) 0.3 k/uL (0-1.0); Monocytes % (A) 8 %; Neutrophils # (A) 2.8 k/uL (1.3-7.7); Neutrophils % (A) 70 %; Platelet Count 108 k/uL (150-450); RBC 3.76 m/uL (4.30-5.90); RDW 16.5 % (11.5-15.5); WBC 4.1 k/uL (3.8-10.6)
[2021-08-20 09:19] LABS: Calcium 8.8 mg/dL (8.4-10.2); Magnesium 2.1 mg/dL (1.6-2.3); Potassium 4.3 mmol/L (3.5-5.1)
[2021-08-20] MEDS: acetaZOLAMIDE 250 MG TAB PO SCH ×2 (09:42→21:09)
[2021-08-20 10:11] LABS: ABG Base Excess 16.8 mmol/L; ABG Oxygen Saturation 98.1 % (94-97); ABG PH 7.35 (7.35-7.45); ABG PO2 103 mmHg (83-108); ABG TCO2 45 mmol/L (19-24); Allen Test Performed? Yes
[2021-08-20 10:14] LABS: ABG PCO2 77 mmHg (35-45)
[2021-08-20 10:15] LABS: ABG HCO3 43 mmol/L (21-25)
--- NOTE | 2021-08-20 10:30 | P.PN ---
Subjective HISTORY OF PRESENTING ILLNESS This is a pleasant 71-year-old male past medical history significant for coronary artery disease, ischemic cardiomyopathy status post AICD, hypertension, chronic systolic heart failure, persistent atrial fibrillation on long-term anticoagulation and former nicotine dependence. He follows in the office with Dr. Curiel. We have been asked to see in consultation for shortness of breath. He presented to the hospital with symptoms of shortness of breath. Chest x-ray revealed pulmonary vascular congestion with an elevated proBNP. He has been started on IV diuretics. He is diuresing well. He has no lower extremity edema but does still endorse some shortness of breath. He has no chest pain or dizziness. EKG reveals ventricular paced with underlying atrial fibrillation. Laboratory data reviewed, sodium 142, potassium 4.7, CO2 42, creatinine 1.53, magnesium 2.2, troponin 0.03, NT proBNP 25,700. Most recent echocardiogram from January 2021 reveals severely impaired LV systolic function with global hypokinesia and ejection fraction of less than 20%, mild to moderate MR and moderate TR with RVSP of 47. 08/20/2020 Patient seen and examined sitting up in no acute distress. He is fatigued and c onfused per the nursing staff. Blood pressure 115/62 heart rate 68 afebrile maintaining oxygen saturation on nasal cannula. Laboratory data reviewed, ABG showed CO2 of 77. Creatinine 1.47. He was transitioned to oral diuretics yesterday. PHYSICAL EXAMINATION CONSTITUTIONAL: No apparent distress. HEENT: Head is normocephalic. Pupils are equal, round. Sclerae anicteric. Mucous membranes of the mouth are moist. No JVD. No carotid bruit. CHEST EXAMINATION: Diminished bilaterally, expiratory wheezes throughout and bibasilar crackles. No chest wall tenderness is noted on palpation or with deep breathing. HEART EXAMINATION: Regular rate and rhythm. S1, S2 heard. No murmurs, gallops or rub. EXTREMITIES: 2+ peripheral pulses, no lower extremity edema and no calf tenderness. ASSESSMENT Acute on chronic systolic heart failure Chronic persistent atrial fibrillation Ischemic cardiomyopathy status post AICD Hypertension Hypercapnia PLAN Add Diamox 125 mg BID. Consider pulmonary evaluation may require Bipap. This is likely the cause for his confusion. We will continue to follow. Nurse Practitioner note has been reviewed, I agree with a documented findings and plan of care. Patient was seen and examined. Objective - Vital Signs Vital signs: Vital Signs Temp 98.4 F 08/20/21 07:39 Pulse 68 08/20/21 08:00 Resp 18 08/20/21 07:39 BP 115/62 08/20/21 07:39 Pulse Ox 96 08/20/21 07:39 Intake & Output 08/19/21 08/20/21 08/20/21 18:59 06:59 18:59 Intake Total 598 Output Total 2651 800 Balance -2052 Weight 97.5 kg 95.8 kg Intake: Oral 598 Output: Urine 2651 800 Other: Voiding Method Toilet Toilet Urinal Urinal # Voids 1 - Labs CBC & Chem 7: 08/20/21 08:46 08/20/21 08:46 Labs: Abnormal Lab Results - Last 24 Hours (Table) 08/19/21 08/19/21 08/20/21 Range/Units 10:46 10:46 08:46 RBC 4.12 L 3.76 L (4.30-5.90) m/uL Hgb 12.5 L 11.8 L (13.0-17.5) gm/dL Hct 37.8 L (39.0-53.0) % MCV 102.7 H 100.4 H (80.0-100.0) fL MCHC 29.5 L (31.0-37.0) g/dL RDW 16.2 H 16.5 H (11.5-15.5) % Plt Count 144 L 108 L (150-450) k/uL Lymphocytes # 0.9 L 0.7 L (1.0-4.8) k/uL ABG pCO2 (35-45) mmHg ABG HCO3 (21-25) mmol/L ABG Total CO2 (19-24) mmol/L ABG O2 Saturation (94-97) % Chloride 96 L (98-107) mmol/L Carbon Dioxide 42 H* (22-30) mmol/L BUN 49 H (9-20) mg/dL Creatinine 1.53 H (0.66-1.25) mg/dL Glucose 117 H (74-99) mg/dL 08/20/21 08/20/21 Range/Units 08:46 10:07 RBC (4.30-5.90) m/uL Hgb (13.0-17.5) gm/dL Hct (39.0-53.0) % MCV (80.0-100.0) fL MCHC (31.0-37.0) g/dL RDW (11.5-15.5) % Plt Count (150-450) k/uL Lymphocytes # (1.0-4.8) k/uL ABG pCO2 77 H* (35-45) mmHg ABG HCO3 43 H* (21-25) mmol/L ABG Total CO2 45 H (19-24) mmol/L ABG O2 Saturation 98.1 H (94-97) % Chloride 94 L (98-107) mmol/L Carbon Dioxide 41 H* (22-30) mmol/L BUN 49 H (9-20) mg/dL Creatinine 1.47 H (0.66-1.25) mg/dL Glucose 161 H (74-99) mg/dL
--- NOTE | 2021-08-20 12:22 | P.PN ---
Subjective Progress Note Date: 08/20/21 Principal diagnosis: Acute on chronic systolic heart failure Patient is slightly confused from 2 days ago. He is following commands and answering questions however at times does start speaking incoherently. He is currently AAO 1. At baseline he is AAO 2. I discussed the case with patient's . She stated that she is not comfortable taking him home. She would like pulmonology to evaluate him because he did have an episode of confusion a few years ago in the hospital where he had to be in the ICU. Objective - Vital Signs Vital signs: Vital Signs Temp 98.4 F 08/20/21 07:39 Pulse 66 08/20/21 11:31 Resp 20 08/20/21 11:31 BP 100/65 08/20/21 11:31 Pulse Ox 97 08/20/21 11:31 Intake & Output 08/19/21 08/20/21 08/20/21 18:59 06:59 18:59 Intake Total 598 Output Total 2651 800 Balance -2052 Weight 97.5 kg 95.8 kg Intake: Oral 598 Output: Urine 2651 800 Other: Voiding Method Toilet Toilet Urinal Urinal # Voids 1 - Exam General examination - Alert and Oriented 1 in NAD, appears chronically debilitated Heart - + S1S2 no murmurs Lungs - diminished breath sound bilaterally Abdomen soft NT ND +ve BS Extremities - +1 pitting edema in bilateral lower extremities 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 Psych - mildly confused - Labs CBC & Chem 7: 08/20/21 08:46 08/20/21 08:46 Labs: Abnormal Lab Results - Last 24 Hours (Table) 08/20/21 08/20/21 08/20/21 Range/Units 08:46 08:46 10:07 RBC 3.76 L (4.30-5.90) m/uL Hgb 11.8 L (13.0-17.5) gm/dL Hct 37.8 L (39.0-53.0) % MCV 100.4 H (80.0-100.0) fL RDW 16.5 H (11.5-15.5) % Plt Count 108 L (150-450) k/uL Lymphocytes # 0.7 L (1.0-4.8) k/uL ABG pCO2 77 H* (35-45) mmHg ABG HCO3 43 H* (21-25) mmol/L ABG Total CO2 45 H (19-24) mmol/L ABG O2 Saturation 98.1 H (94-97) % Chloride 94 L (98-107) mmol/L Carbon Dioxide 41 H* (22-30) mmol/L BUN 49 H (9-20) mg/dL Creatinine 1.47 H (0.66-1.25) mg/dL Glucose 161 H (74-99) mg/dL Assessment and Plan Assessment: #Acute on chronic systolic heart failure -Cardiology consult -Patient now appears euvolemic. We'll transition to Lasix 40 mg by mouth twice a day -Resume spironolactone, lisinopril, metoprolol -Strict I's and O's and daily weights #Mild acute on chronic hypercapnic respiratory failure -We'll consult pulmonology to evaluate for possible home BiPAP -ABG noted #Encephalopathy likely due to hypercapnia versus ing -Continue to monitor patient mental status -We'll consult pulmonology to evaluate for BiPAP #A. fib with RVR -Resume metoprolol and Eliquis -Heart rate controlled #COPD not in exacerbation #Chronic hypoxia -Patient currently satting well on his home O2 of 3 L -Resume home inhalers #History of CVA -Resume aspirin and statin #Hypertension -Resume home meds Anticipate patient will be ready for discharge the next 24 hours CODE STATUS:full code DVT prophylaxis: Eliquis DPOA: Discussed with: Patient, ER, rn Anticipated length of stay: One more day Anticipated discharge place: home A total of 75 minutes was spent on the care of this complex patient more than 50% of the time was spent in counseling and care coordination.
--- NOTE | 2021-08-20 15:23 | CT ---
EXAMINATION TYPE: CT brain wo con CT DLP: 1153.4 mGycm, Automated exposure control for dose reduction was used. DATE OF EXAM: 08/20/2021 3:08 PM COMPARISON: Prior CT Brain from 10/20/2019. CLINICAL INDICATION:Male, 71 years old with history of Increased confusion, Altered mental status. TECHNIQUE: Brain: Multiple axial CT images of the brain were obtained without IV contrast. FINDINGS: Brain: Extra-axial spaces: No abnormal extra-axial fluid collections. Ventricular system: Within normal limits Cerebral parenchyma: Encephalomalacia of the left temporal lobe from prior injury. Diffuse white cl er changes in the left MCA territory and to lesser extent the right cerebellar labrum. No acute intra parenchymal hemorrhage or mass effect. The remainder of the conroy-white junctions are well differenti ated. Cerebellum: Unremarkable. Mass effect: No evidence of midline shift. Intracranial vasculature: Atherosclerotic calcifications of the intracranial vessels. Soft tissues: Normal. Calvarium/osseous structures: No depressed skull fracture. Paranasal sinuses and mastoid air cells: Mild scattered paranasal sinus disease. Visualized orbits: Bilateral aphakia IMPRESSION: 1. No acute intracranial process. 2. Encephalomalacia of left temporal lobe from prior left MCA territory infarct. 3. Nonspecific white matter changes likely secondary to chronic small vessel ischemic disease.
[2021-08-20] MEDS: NON FORMULARY DRUG (Rosuvastatin Calcium [Crestor] 40 MG Tablet) PO SCH (21:09)
[2021-08-21 01:21] LABS: Appearance,Urine Clear (Clear); Bilirubin,Urine Negative (Negative); Blood,Urine Negative (Negative); Color,Urine Light Yellow; Glucose,Urine (UA) Negative (Negative); Hyaline Casts,Urine 1 /lpf (0-2); Ketones,Urine Negative (Negative); Leukocyte Esterase,Urine Negative (Negative); Nitrite,Urine Negative (Negative); PH, Urine 7.5 (5.0-8.0); Protein,Urine 1+ (Negative); RBC,Urine 1 /hpf (0-5); Specific Gravity,Urine 1.008 (1.001-1.035); Urobilinogen,Urine <2.0 mg/dL (<2.0); WBC,Urine 1 /hpf (0-5)
[2021-08-21] MEDS: PANTOPRAZOLE 40 MG TABLET PO SCH (06:38)
[2021-08-21 09:12] LABS: Anisocytosis Slight; Basophils % (A) 1 %; Eosinophils # (A) 0.1 k/uL (0-0.7); Eosinophils % (A) 1 %; HCT 45.9 % (39.0-53.0); HGB 13.2 gm/dL (13.0-17.5); Hypochromasia Marked; Lymphocytes % (A) 20 %; MCH 29.8 pg (25.0-35.0); MCHC 28.9 g/dL (31.0-37.0); MCV 103.4 fL (80.0-100.0); Macrocytosis Moderate; Mean Platelet Volume 10.2; Monocytes # (A) 0.3 k/uL (0-1.0); Monocytes % (A) 6 %; Neutrophils # (A) 3.5 k/uL (1.3-7.7); Neutrophils % (A) 69 %; Platelet Count 124 k/uL (150-450); RBC 4.44 m/uL (4.30-5.90); RDW 16.1 % (11.5-15.5); WBC 5.1 k/uL (3.8-10.6)
[2021-08-21 09:15] LABS: Calcium 9.4 mg/dL (8.4-10.2)
[2021-08-21] MEDS: GABAPENTIN 300 MG CAP PO SCH (09:28)
[2021-08-21] MEDS: MAGNESIUM OXIDE 400 MG TAB PO SCH ×2 (09:28→21:06)
[2021-08-21] MEDS: THIAMINE 100 MG TAB PO SCH (09:28)
[2021-08-21] MEDS: FUROSEMIDE 40 MG TAB PO SCH (09:28)
[2021-08-21] MEDS: SPIRONOLACTONE 25 MG TAB PO SCH (09:28)
[2021-08-21] MEDS: acetaZOLAMIDE 250 MG TAB PO SCH ×2 (09:28→21:06)
[2021-08-21] MEDS: allopurinoL 100 MG TAB PO SCH ×2 (09:28→21:06)
[2021-08-21] MEDS: SERTRALINE 100 MG TAB PO SCH ×2 (09:29→21:06)
[2021-08-21] MEDS: POTASSIUM CHLORIDE ER 10 MEQ TAB.ER.PRT PO SCH (09:29)
[2021-08-21] MEDS: METOPROLOL SUCCINATE (ER) 100 MG TAB.ER.24H PO SCH (09:29)
[2021-08-21] MEDS: APIXABAN 5 MG TAB PO SCH ×2 (09:29→21:06)
[2021-08-21] MEDS: ASPIRIN 81 MG PO SCH (09:30)
--- NOTE | 2021-08-21 10:33 | P.CNPUL ---
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 He had presented to the ED with complaints of increasing shortness of breath. He was admitted for the same on 07/21/21 and we saw him in consultation back then. We have been asked to see in consultation for shortness of breath and hypercapnia . He presented to the hospital with symptoms of shortness of breath. Chest x-ray revealed pulmonary vascular congestion with an elevated proBNP. He has been started on IV diuretics. He is diuresing well. He has no lower extremity edema but does still endorse some shortness of breath. He has no chest pain or dizziness. EKG reveals ventricular paced with underlying atrial fibrillation. Laboratory data reviewed, sodium 142, potassium 4.7, CO2 42, creatinine 1.53, magnesium 2.2, troponin 0.03, NT proBNP 25,700. Most recent echocardiogram from January 2021 reveals severely impaired LV systolic function with global hypokinesia and ejection fraction of less than 20%, mild to moderate MR and moderate TR with RVSP of 47. Review of Systems REVIEW OF SYSTEMS: CONSTITUTIONAL: Denies any recent significant weight loss or weight gain. Patient has expressive aphasia and is very hard to communicate with him. EYES: Denies change in vision. EARS, NOSE, MOUTH, THROAT: Denies headaches, denies sore throat. CARDIOVASCULAR: Denies chest pain, palpitations or syncopal episodes. RESPIRATORY: Positive for shortness of breath, cough, congestion no hemoptysis. GASTROINTESTINAL: Denies change in appetite, denies abdominal pain GENITOURINARY: Denies hematuria, denies infections. MUSKULOSKELETAL: Denies pain, denies swelling. INTEGUMENTARY: Denies rash, denies eczema. NEUROLOGICAL: Denies recent memory loss, no recent seizure activity. He is a poor historian and he has expressive aphasia PSYCHIATRIC: Denies anxiety, denies depression. HEMATOLOGIC/LYMPHATIC: Denies anemia, denies enlarged lymph nodes. 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 sided weakness,cataracts, bruises easily due to coumadin,does not wear cpap,neuropathy moe. feet History of Any Multi-Drug Resistant Organisms: None Reported Past Surgical History: AICD, Heart Catheterization With Stent Additional Past Surgical History / Comment(s): AICD/Pacemaker, PEG tube placed in [address] Anglin in 2019 Past Anesthesia/Blood Transfusion Reactions: No Reported Reaction Date of Last Stent Placement:: unk Type of Cardiac Device: AICD Device Placement Date:: 2009 Past Psychological History: Anxiety, Depression, PTSD Additional Psychological History / Comment(s): PTSD 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 war Smoking Status: Former smoker Additional Past Alcohol Use History / Comment(s): states he stopped smoking three months ago Past Drug Use History: None Reported - Past Family History Brother(s) Family Medical History: Deep Vein Thrombosis (DVT) Medications and Allergies Home Medications Medication Instructions Recorded Confirmed Type Aspirin [Adult Low Dose Aspirin EC] 81 mg PO DAILY 09/02/17 08/18/21 History Omeprazole [PriLOSEC] 20 mg PO BID 09/02/17 08/18/21 History Sertraline HCl [Zoloft] 100 mg PO BID 09/02/17 08/18/21 History allopurinoL [Zyloprim] 100 mg PO BID 09/02/17 08/18/21 History Acetaminophen-Codeine 300-30mg 1 tab PO TID PRN 04/01/19 08/18/21 History [Tylenol w/codeine #3] Rosuvastatin Calcium [Crestor] 20 mg PO HS 08/20/19 08/18/21 History Albuterol Sulfate [Albuterol 2 puff INHALATION RT-QID PRN 12/27/20 08/18/21 History Sulfate Hfa] Apixaban [Eliquis] 5 mg PO BID 12/27/20 08/18/21 History Jevity 1.5 Jakob Liquid 2 can PO TID 12/27/20 08/18/21 History Metoprolol Succinate (ER) [Toprol 100 mg PO DAILY 12/27/20 08/18/21 History XL] Spironolactone 25 mg PO DAILY 12/27/20 08/18/21 History lisinopriL [Zestril] 2.5 mg PO DAILY 12/27/20 08/18/21 History Ipratropium-Albuterol Nebulize 3 ml INHALATION RT-QID 02/08/21 08/18/21 History [Duoneb 0.5 mg-3 mg/3 ml Soln] Mag-Ox 420mg 420 mg PO BID 02/08/21 08/18/21 History Potassium Chloride [Klor-Con 10 ER] 10 meq PO DAILY 02/08/21 08/18/21 History Gabapentin [Neurontin] 600 mg PO TID 07/20/21 08/18/21 History Furosemide [Lasix] 40 mg PO DAILY #30 07/23/21 08/18/21 Rx Thiamine [Vitamin B-1] 100 mg PO DAILY #30 tab 07/23/21 08/18/21 Rx Allergies Allergy/AdvReac Type Severity Reaction Status Date / Time fluticasone Allergy Dyspnea Verified 08/18/21 13:51 [From Wixela Inhub] metolazone [From Zaroxolyn] Allergy Rash/Hives Verified 08/18/21 13:51 salmeterol Allergy Dyspnea Verified 08/18/21 13:51 [From Wixela Inhub] warfarin [From Coumadin] Allergy Unknown Verified 08/18/21 13:51 fluvastatin AdvReac weakness/muscle Verified 08/18/21 13:51 pain simvastatin AdvReac muscle pain Verified 08/18/21 13:51 sulfamethoxazole AdvReac Abdominal Verified 08/18/21 13:51 [From Bactrim] Pain trimethoprim [From Bactrim] AdvReac Abdominal Verified 08/18/21 13:51 Pain Physical Exam Vitals: Vital Signs Temp Pulse Resp BP Pulse Ox FiO2 08/21/21 03:40 98.3 F 70 18 108/61 96 08/20/21 23:56 28 08/20/21 23:10 74 16 111/72 97 08/20/21 20:47 98 F 67 16 115/67 96 08/20/21 15:57 99 08/20/21 15:08 97.7 F 76 20 112/60 97 08/20/21 13:25 66 08/20/21 11:31 66 20 100/65 97 08/20/21 10:28 95 Intake and Output 08/20/21 08/21/21 08/21/21 22:59 06:59 14:59 Intake Total 240 Output Total 900 600 Balance -900 -600 240 Intake: Oral 240 Output: Urine 900 600 Other: Voiding Method Toilet Toilet Urinal Urinal # Voids 1 Weight 96 kg GENERAL EXAM: Alert, disheveled 71-year-old male patient, on 2 L nasal cannula, comfortable in no apparent distress. HEAD: Normocephalic. EYES: Normal reaction of pupils, equal size. NOSE: Clear with pink turbinates. THROAT: No erythema or exudates. NECK: No masses, no JVD. CHEST: No chest wall deformity. LUNGS: Equal air entry with bilateral end expiratory wheeze, few scattered rhonchi. CVS: S1 and S2 normal with no audible murmur, regular rhythm. ABDOMEN: No hepatosplenomegaly, normal bowel sounds, no guarding or rigidity. SPINE: No scoliosis or deformity SKIN: No rashes CENTRAL NERVOUS SYSTEM: No focal deficits, tone is normal in all 4 extremities. EXTREMITIES: There is no peripheral edema. No clubbing, no cyanosis. Peripheral pulses are intact. Results - Laboratory Findings CBC and BMP: 08/21/21 08:33 08/21/21 08:33 ABG ABG pH 7.35 (7.35-7.45) 08/20/21 10:07 ABG pCO2 77 mmHg (35-45) H* 08/20/21 10:07 ABG pO2 103 mmHg (83-108) 08/20/21 10:07 ABG O2 Saturation 98.1 % (94-97) H 08/20/21 10:07 PT/INR, D-dimer PT 11.6 sec (9.0-12.0) 08/18/21 12:50 INR 1.1 (<1.2) 08/18/21 12:50 Abnormal lab findings: Abnormal Labs 08/18/21 08/18/21 08/18/21 12:50 12:50 13:30 RBC Hgb 12.9 L Hct MCV 101.2 H MCHC 29.4 L RDW 16.0 H Plt Count 125 L Lymphocytes # 0.8 L ABG pCO2 ABG HCO3 ABG Total CO2 ABG O2 Saturation Chloride Carbon Dioxide 35 H BUN 46 H Creatinine 1.36 H Glucose Urine Protein 2+ H Ur Leukocyte Esterase Small H Urine Bacteria Rare H Hyaline Casts 11 H Urine Mucus Rare H 08/19/21 08/19/21 08/20/21 10:46 10:46 08:46 RBC 4.12 L 3.76 L Hgb 12.5 L 11.8 L Hct 37.8 L MCV 102.7 H 100.4 H MCHC 29.5 L RDW 16.2 H 16.5 H Plt Count 144 L 108 L Lymphocytes # 0.9 L 0.7 L ABG pCO2 ABG HCO3 ABG Total CO2 ABG O2 Saturation Chloride 96 L Carbon Dioxide 42 H* BUN 49 H Creatinine 1.53 H Glucose 117 H Urine Protein Ur Leukocyte Esterase Urine Bacteria Hyaline Casts Urine Mucus 08/20/21 08/20/21 08/21/21 08:46 10:07 00:56 RBC Hgb Hct MCV MCHC RDW Plt Count Lymphocytes # ABG pCO2 77 H* ABG HCO3 43 H* ABG Total CO2 45 H ABG O2 Saturation 98.1 H Chloride 94 L Carbon Dioxide 41 H* BUN 49 H Creatinine 1.47 H Glucose 161 H Urine Protein 1+ H Ur Leukocyte Esterase Urine Bacteria Hyaline Casts Urine Mucus 08/21/21 08/21/21 08:33 08:33 RBC Hgb Hct MCV 103.4 H MCHC 28.9 L RDW 16.1 H Plt Count 124 L Lymphocytes # ABG pCO2 ABG HCO3 ABG Total CO2 ABG O2 Saturation Chloride 95 L Carbon Dioxide 37 H BUN 47 H Creatinine 1.74 H Glucose 133 H Urine Protein Ur Leukocyte Esterase Urine Bacteria Hyaline Casts Urine Mucus - Diagnostic Findings Chest x-ray: image reviewed Assessment and Plan Plan: 1 Acute exacerbation of chronic systolic congestive heart failure, improving and the patient was taken off the IV Lasix and the patient is currently on oral Lasix and Aldactone. Overall restlessness is stable and the patient remains on oxygen at 3 L per minute nasal cannula. 2 chronic obstructive pulmonary disease, chronic, with a component of chronic hypercapneic respiratory failure, compensated 3 History of severe ischemic cardiomyopathy with ejection fraction less than 20% 4 History of AICD placement 5 Coronary artery disease with previous stent placement 6 History of CVA with residual expressive aphasia and right-sided weakness 7 Hypertension 8 CKD, stage 3 9 Hyperlipidemia 10 Chronic atrial fibrillation, anticoagulant with Eliquis 11 History of gout 12 Chronic and ongoing tobacco dependence 13 History of daily alcohol use 14 History of dysphagia secondary to the CVA with previous PEG tube insertion and subsequent removal 15 Hearing disorder Plan: Continue DuoNeb inhalations The patient has chronic compensated hypoxic and hypercapnic respiratory failure due to COPD. Continue oxygen therapy at 3 L per minute nasal cannula that reduction. To maintain a saturation above 90%. Not a candidate for noninvasive positive pressure ventilator. He has expressive aphasia. Very difficult for this patient to cooperate with any form of device on outpatient basis. Continue diuretics and the patient is currently on a combination of Lasix and Aldactone Anticoagulated with Eliquis Increase his activity as tolerated Ration precautions Continue enteral feeding for nutritional support Chest x-ray was noted We will continue to follow and make further recommendations based on his clinical status
--- NOTE | 2021-08-21 11:48 | P.PN ---
Subjective Progress Note Date: 08/21/21 Principal diagnosis: Acute on chronic systolic heart failure Patient still remains confused this morning. He is only AAO 1. At baseline he is AAO 2. Patient at times and speaking incoherently. CT head yesterday showed old infarct with encephalomalacia. Objective - Vital Signs Vital signs: Vital Signs Temp 98.4 F 08/21/21 08:00 Pulse 69 08/21/21 08:00 Resp 18 08/21/21 03:40 BP 111/66 08/21/21 08:00 Pulse Ox 97 08/21/21 08:00 FiO2 28 08/20/21 23:56 Intake & Output 08/20/21 08/21/21 08/21/21 18:59 06:59 18:59 Intake Total 340 Output Total 900 1500 Balance -900 -1500 340 Weight 96 kg Intake: Oral 340 Output: Urine 900 1500 Other: Voiding Method Toilet Toilet Toilet Urinal Urinal Urinal # Voids 1 - Exam General examination - Alert and Oriented 1 in NAD, appears chronically debilitated Heart - + S1S2 no murmurs Lungs - diminished breath sound bilaterally Abdomen soft NT ND +ve BS Extremities - +1 pitting edema in bilateral lower extremities [employer]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 Psych - mildly confused - Labs CBC & Chem 7: 08/21/21 08:33 08/21/21 08:33 Labs: Abnormal Lab Results - Last 24 Hours (Table) 08/21/21 08/21/21 08/21/21 Range/Units 00:56 08:33 08:33 MCV 103.4 H (80.0-100.0) fL MCHC 28.9 L (31.0-37.0) g/dL RDW 16.1 H (11.5-15.5) % Plt Count 124 L (150-450) k/uL Chloride 95 L (98-107) mmol/L Carbon Dioxide 37 H (22-30) mmol/L BUN 47 H (9-20) mg/dL Creatinine 1.74 H (0.66-1.25) mg/dL Glucose 133 H (74-99) mg/dL Urine Protein 1+ H (Negative) Assessment and Plan Assessment: #Acute on chronic systolic heart failure -Cardiology consult -Patient now appears euvolemic and lower extremity edema has improved significantly since admission. We'll transition him back to his home dose of Lasix since creatinine is increasing -Resume spironolactone, lisinopril, metoprolol -Strict I's and O's and daily weights #Chronic hypercapnic respiratory failure -Per pulmonology patient is not a candidate for BiPAP -ABG noted #Encephalopathy likely due to underlying dementia which is exacerbated by being in the hospital -Continue to monitor patient mental status -CT head shows old infarct with encephalomalacia -We'll consult neurology to rule out neurologic etiologies -We'll check MRI without contrast -UA negative for UTI #A. fib with RVR -Resume metoprolol and Eliquis -Heart rate controlled #COPD not in exacerbation #Chronic hypoxia -Patient currently satting well on his home O2 of 3 L -Resume home inhalers #CK D stage III -Patient's creatinine is around his baseline of 1.6 #History of CVA -Resume aspirin and statin #Hypertension -Resume home meds Patient will be discharged home. is concerned about his worsening mental status in the hospital. I did tell the that it is likely underlying dementia and we will rule out possible other neurologic etiologies. CODE STATUS:full code DVT prophylaxis: Eliquis DPOA: Discussed with: Patient, ER, rn Anticipated length of stay: Depending on clinical course Anticipated discharge place: home A total of 75 minutes was spent on the care of this complex patient more than 50% of the time was spent in counseling and care coordination.
--- NOTE | 2021-08-21 12:20 | P.PN ---
Subjective Progress Note Date: 08/21/21 HISTORY OF PRESENTING ILLNESS This is a pleasant 71-year-old male past medical history significant for coronary artery disease, ischemic cardiomyopathy status post AICD, hypertension, chronic systolic heart failure, persistent atrial fibrillation on long-term anticoagulation and former nicotine dependence. He follows in the office with Dr. Curiel. We have been asked to see in consultation for shortness of breath. He presented to the hospital with symptoms of shortness of breath. Chest x-ray revealed pulmonary vascular congestion with an elevated proBNP. He has been started on IV diuretics. He is diuresing well. He has no lower extremity edema but does still endorse some shortness of breath. He has no chest pain or dizziness. EKG reveals ventricular paced with underlying atrial fibrillation. Laboratory data reviewed, sodium 142, potassium 4.7, CO2 42, creatinine 1.53, magnesium 2.2, troponin 0.03, NT proBNP 25,700. Most recent echocardiogram from January 2021 reveals severely impaired LV systolic function with global hypokinesia and ejection fraction of less than 20%, mild to moderate MR and moderate TR with RVSP of 47. 08/20/2020 Patient seen and examined sitting up in no acute distress. He is fatigued and confused per the nursing staff. Blood pressure 115/62 heart rate 68 afebrile maintaining oxygen saturation on nasal cannula. Laboratory data reviewed, ABG showed CO2 of 77. Creatinine 1.47. He was transitioned to oral diuretics yesterday. 08/21/2021 Patient examined this morning at the bedside. Patient is somewhat confused at the time of examination. He denies chest pain or pressure. He currently denies SOB. He remains on oral diuretics. He remains on 2 L nasal cannula with oxygen saturations greater than 92%. PHYSICAL EXAMINATION CONSTITUTIONAL: No apparent distress. HEENT: Head is normocephalic. Pupils are equal, round. Sclerae anicteric. Mucous membranes of the mouth are moist. No JVD. No carotid bruit. CHEST EXAMINATION: Lungs diminished bilaterally. No chest wall tenderness is noted on palpation or with deep breathing. HEART EXAMINATION: Regular rate and rhythm. S1, S2 heard. No murmurs, gallops or rub. EXTREMITIES: 2+ peripheral pulses, no lower extremity edema and no calf tenderness. ASSESSMENT Acute on chronic systolic heart failure Chronic persistent atrial fibrillation Ischemic cardiomyopathy status post AICD Hypertension Hypercapnia PLAN Continue current cardiac medications Continue oral diuretics. Continue to monitor intake and output. Monitor kidney function. Pulmonary following Further recommendations pending patient course Nurse Practitioner note has been reviewed, I agree with a documented findings and plan of care. Patient was seen and examined. Objective - Vital Signs Vital signs: Vital Signs Temp 98.4 F 08/21/21 08:00 Pulse 69 08/21/21 08:00 Resp 18 08/21/21 03:40 BP 111/66 08/21/21 08:00 Pulse Ox 97 08/21/21 08:00 FiO2 28 08/20/21 23:56 Intake & Output 08/20/21 08/21/21 08/21/21 18:59 06:59 18:59 Intake Total 340 Output Total 900 1500 Balance -900 -1500 340 Weight 96 kg Intake: Oral 340 Output: Urine 900 1500 Other: Voiding Method Toilet Toilet Toilet Urinal Urinal Urinal # Voids 1 - Labs CBC & Chem 7: 08/21/21 08:33 08/21/21 08:33 Labs: Abnormal Lab Results - Last 24 Hours (Table) 08/21/21 08/21/21 08/21/21 Range/Units 00:56 08:33 08:33 MCV 103.4 H (80.0-100.0) fL MCHC 28.9 L (31.0-37.0) g/dL RDW 16.1 H (11.5-15.5) % Plt Count 124 L (150-450) k/uL Chloride 95 L (98-107) mmol/L Carbon Dioxide 37 H (22-30) mmol/L BUN 47 H (9-20) mg/dL Creatinine 1.74 H (0.66-1.25) mg/dL Glucose 133 H (74-99) mg/dL Urine Protein 1+ H (Negative)
[2021-08-21 15:13] VITALS: BMI 27.1
--- NOTE | 2021-08-21 17:01 | P.CNNES ---
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 Neurology is consulted for altered mental status. History was obtained from his (Santa) via phone, nurse at medical record. Per the patient's the patient's mentation at baseline is alert oriented 2-3 but it seems that he is having worsening of mentation and currently oriented X1. Per the nurse no seizure-like activity is witnessed In our facility the patient's CO2 is elevated and has got high as 42. The ABG dated pCO2 was 77 and the bicarb was 43. And a total CO2 was 45. His creatinine is trending off and got high as 1.74. CT of the head is reported as no acute intracranial processes. Encephalomalacia over the left temporal from prior left MCA territory infarct. Nonspecific white matter changes likely s econdary to due to chronic small ischemic changes.I personally reviewed the CT head and agree with the report. Patient is on aspirin his home dose of 81. Per he has old stroke with residual aphasia and right facial droop. It seems patient is refusing CPAP machine and had CO2 elevated in past as well according to his . Other workup in our facility consisted of: White blood cells 5.6. Patient has been afebrile so far. Review of Systems Review of system is limited but pertinent positive and negative as per HPI. 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 sided weakness,cataracts, bruises easily due to coumadin,does not wear cpap,neuropathy moe. feet History of Any Multi-Drug Resistant Organisms: None Reported Past Surgical History: AICD, Heart Catheterization With Stent Additional Past Surgical History / Comment(s): AICD/Pacemaker, PEG tube placed in [address] Anglin in 2019 Past Anesthesia/Blood Transfusion Reactions: No Reported Reaction Date of Last Stent Placement:: unk Type of Cardiac Device: AICD Device Placement Date:: 2009 Past Psychological History: Anxiety, Depression, PTSD Additional Psychological History / Comment(s): PTSD 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 war Smoking Status: Former smoker Additional Past Alcohol Use History / Comment(s): states he stopped smoking three months ago Past Drug Use History: None Reported - Past Family History Brother(s) Family Medical History: Deep Vein Thrombosis (DVT) Medications and Allergies Home Medications Medication Instructions Recorded Confirmed Type Aspirin [Adult Low Dose Aspirin EC] 81 mg PO DAILY 09/02/17 08/18/21 History Omeprazole [PriLOSEC] 20 mg PO BID 09/02/17 08/18/21 History Sertraline HCl [Zoloft] 100 mg PO BID 09/02/17 08/18/21 History allopurinoL [Zyloprim] 100 mg PO BID 09/02/17 08/18/21 History Acetaminophen-Codeine 300-30mg 1 tab PO TID PRN 04/01/19 08/18/21 History [Tylenol w/codeine #3] Rosuvastatin Calcium [Crestor] 20 mg PO HS 08/20/19 08/18/21 History Albuterol Sulfate [Albuterol 2 puff INHALATION RT-QID PRN 12/27/20 08/18/21 History Sulfate Hfa] Apixaban [Eliquis] 5 mg PO BID 12/27/20 08/18/21 History Jevity 1.5 Jakob Liquid 2 can PO TID 12/27/20 08/18/21 History Metoprolol Succinate (ER) [Toprol 100 mg PO DAILY 12/27/20 08/18/21 History XL] Spironolactone 25 mg PO DAILY 12/27/20 08/18/21 History lisinopriL [Zestril] 2.5 mg PO DAILY 12/27/20 08/18/21 History Ipratropium-Albuterol Nebulize 3 ml INHALATION RT-QID 02/08/21 08/18/21 History [Duoneb 0.5 mg-3 mg/3 ml Soln] Mag-Ox 420mg 420 mg PO BID 02/08/21 08/18/21 History Potassium Chloride [Klor-Con 10 ER] 10 meq PO DAILY 02/08/21 08/18/21 History Gabapentin [Neurontin] 600 mg PO TID 07/20/21 08/18/21 History Furosemide [Lasix] 40 mg PO DAILY #30 07/23/21 08/18/21 Rx Thiamine [Vitamin B-1] 100 mg PO DAILY #30 tab 07/23/21 08/18/21 Rx Allergies Allergy/AdvReac Type Severity Reaction Status Date / Time fluticasone Allergy Dyspnea Verified 08/18/21 13:51 [From Wixela Inhub] metolazone [From Zaroxolyn] Allergy Rash/Hives Verified 08/18/21 13:51 salmeterol Allergy Dyspnea Verified 08/18/21 13:51 [From Wixela Inhub] warfarin [From Coumadin] Allergy Unknown Verified 08/18/21 13:51 fluvastatin AdvReac weakness/muscle Verified 08/18/21 13:51 pain simvastatin AdvReac muscle pain Verified 08/18/21 13:51 sulfamethoxazole AdvReac Abdominal Verified 08/18/21 13:51 [From Bactrim] Pain trimethoprim [From Bactrim] AdvReac Abdominal Verified 08/18/21 13:51 Pain Physical Examination - Vital Signs Vital Signs: Vital Signs Temp Pulse Pulse Resp BP Pulse Ox FiO2 08/21/21 12:00 70 107/67 97 08/21/21 08:00 98.4 F 69 111/66 97 08/21/21 03:40 98.3 F 70 18 108/61 96 08/20/21 23:56 28 08/20/21 23:10 74 16 111/72 97 08/20/21 20:47 98 F 67 16 115/67 96 08/20/21 15:57 99 08/20/21 15:08 97.7 F 76 20 112/60 97 Intake and Output 08/21/21 08/21/21 08/21/21 06:59 14:59 22:59 Intake Total 340 Output Total 600 Balance -600 340 Intake: Oral 340 Output: Urine 600 Other: Voiding Method Toilet Toilet Urinal Urinal Weight 96 kg GENERAL: The patient is lying in bed and is not in acute distress. CHEST: The heart rate is regular rate rhythm. No murmurs to auscultation. LUNG: Clear to auscultation bilaterally no wheezing noted throughout. Not labored breathing. ABDOMEN/GI: Bowel sounds present in all 4 quadrants. No tenderness to palpation throughout. NEUROLOGICAL: Higher mental function: The patient is drowsy but is awakeable to voice. Is oriented to self. Could not ell me year or month but kept on telling me his date of . Is following simple commands. Has aphasia (seems predominately expressive). He correctly name pen. With glassess he say eye. No neglect. Cranial nerves: The pupils are round, equal and reactive to light. Visual tse are full to confrontation throughout. Extraocular movement is intact no nystagmus is noted. Right lower facial droop (old). Has mild dysarthria. Otherwise limited because of his condition. Motor: The strength is lifting all extremities above gravity. Normal tone and bulk. Cerebellum: Unable to assess. Sensation: Unable to assess. Reflexes (right/left): 2+ throughout. Plantars are mute bilaterally. Results - Laboratory Findings CBC and BMP: 08/21/21 08:33 08/21/21 08:33 Abnormal Lab Findings: Abnormal Labs 08/18/21 08/18/21 08/18/21 12:50 12:50 13:30 RBC Hgb 12.9 L Hct MCV 101.2 H MCHC 29.4 L RDW 16.0 H Plt Count 125 L Lymphocytes # 0.8 L ABG pCO2 ABG HCO3 ABG Total CO2 ABG O2 Saturation Chloride Carbon Dioxide 35 H BUN 46 H Creatinine 1.36 H Glucose Urine Protein 2+ H Ur Leukocyte Esterase Small H Urine Bacteria Rare H Hyaline Casts 11 H Urine Mucus Rare H 08/19/21 08/19/21 08/20/21 10:46 10:46 08:46 RBC 4.12 L 3.76 L Hgb 12.5 L 11.8 L Hct 37.8 L MCV 102.7 H 100.4 H MCHC 29.5 L RDW 16.2 H 16.5 H Plt Count 144 L 108 L Lymphocytes # 0.9 L 0.7 L ABG pCO2 ABG HCO3 ABG Total CO2 ABG O2 Saturation Chloride 96 L Carbon Dioxide 42 H* BUN 49 H Creatinine 1.53 H Glucose 117 H Urine Protein Ur Leukocyte Esterase Urine Bacteria Hyaline Casts Urine Mucus 08/20/21 08/20/21 08/21/21 08:46 10:07 00:56 RBC Hgb Hct MCV MCHC RDW Plt Count Lymphocytes # ABG pCO2 77 H* ABG HCO3 43 H* ABG Total CO2 45 H ABG O2 Saturation 98.1 H Chloride 94 L Carbon Dioxide 41 H* BUN 49 H Creatinine 1.47 H Glucose 161 H Urine Protein 1+ H Ur Leukocyte Esterase Urine Bacteria Hyaline Casts Urine Mucus 08/21/21 08/21/21 08:33 08:33 RBC Hgb Hct MCV 103.4 H MCHC 28.9 L RDW 16.1 H Plt Count 124 L Lymphocytes # ABG pCO2 ABG HCO3 ABG Total CO2 ABG O2 Saturation Chloride 95 L Carbon Dioxide 37 H BUN 47 H Creatinine 1.74 H Glucose 133 H Urine Protein Ur Leukocyte Esterase Urine Bacteria Hyaline Casts Urine Mucus Assessment and Plan Assessment: Altered mental status due to metabolic encephalopathy ( acute on chronic kidney insufficiency, elevated CO2). History of stroke over the left MCA with residual aphasia and right facial droop Acute on chronic systolic heart failure Chronic hypercapnic Atrial fibrillation on eliquis COPD Acute on chronic kidney insufficiency Plan: I ordered vitamin B12, folate, ammonia level, TSH. Also ordered routine EEG. I'll not start the patient on an antiepileptic drug unless there is a epileptiform discharges or seizure on the EEG Every 4 hours neuro checks Pulmonary team is on board Cardiology team is on board We'll defer the rest the medical management to primary team. The plan is discussed with the patient's (via phone) and his nurse. Thank you for the consultation. Eldon Cox M.D. Neuro-hospitalist Time with Patient: Greater than 30
[2021-08-21] MEDS: GABAPENTIN 100 MG CAP PO SCH ×2 (17:09→21:07)
[2021-08-21] MEDS: NON FORMULARY DRUG (Rosuvastatin Calcium [Crestor] 40 MG Tablet) PO SCH (20:55)
[2021-08-22 06:07] VITALS: TEMP 98.1
[2021-08-22] MEDS: PANTOPRAZOLE 40 MG TABLET PO SCH (06:43)
[2021-08-22] MEDS ORDERED: FUROSEMIDE 40 MG TAB PO SCH (09:00)
[2021-08-22 09:20] LABS: Basophils % (A) 0 %; Eosinophils # (A) 0.1 k/uL (0-0.7); Eosinophils % (A) 2 %; HCT 39.2 % (39.0-53.0); HGB 11.7 gm/dL (13.0-17.5); Hypochromasia Marked; Lymphocytes % (A) 21 %; MCH 30.4 pg (25.0-35.0); MCHC 29.9 g/dL (31.0-37.0); MCV 101.6 fL (80.0-100.0); Macrocytosis Slight; Mean Platelet Volume 9.4; Monocytes # (A) 0.4 k/uL (0-1.0); Monocytes % (A) 8 %; Neutrophils # (A) 2.9 k/uL (1.3-7.7); Neutrophils % (A) 64 %; Platelet Count 104 k/uL (150-450); RBC 3.86 m/uL (4.30-5.90); RDW 15.8 % (11.5-15.5); WBC 4.5 k/uL (3.8-10.6)
[2021-08-22 09:40] LABS: Calcium 8.8 mg/dL (8.4-10.2); Magnesium 2.3 mg/dL (1.6-2.3); Potassium 4.5 mmol/L (3.5-5.1)
[2021-08-22] MEDS: THIAMINE 100 MG TAB PO SCH (09:57)
[2021-08-22] MEDS: GABAPENTIN 100 MG CAP PO SCH ×2 (09:57→17:15)
[2021-08-22] MEDS: METOPROLOL SUCCINATE (ER) 100 MG TAB.ER.24H PO SCH (09:57)
[2021-08-22] MEDS: SPIRONOLACTONE 25 MG TAB PO SCH (09:57)
[2021-08-22] MEDS: SERTRALINE 100 MG TAB PO SCH (09:57)
[2021-08-22] MEDS: allopurinoL 100 MG TAB PO SCH (09:58)
[2021-08-22] MEDS: MAGNESIUM OXIDE 400 MG TAB PO SCH (09:58)
[2021-08-22] MEDS: POTASSIUM CHLORIDE ER 10 MEQ TAB.ER.PRT PO SCH (09:58)
[2021-08-22] MEDS: acetaZOLAMIDE 250 MG TAB PO SCH (09:58)
[2021-08-22] MEDS: APIXABAN 5 MG TAB PO SCH (09:58)
[2021-08-22] MEDS: ASPIRIN 81 MG PO SCH (09:58)
[2021-08-22 10:09] VITALS: RESP 18
--- NOTE | 2021-08-22 11:13 | P.DS ---
Providers Date of admission: 08/18/21 15:58 Expected date of discharge: 08/22/21 Attending physician: Siva Zurita MD Consults: 08/18/21 16:33 Consult Physician Routine Consulting Provider: Lee Curiel Consult Reason/Comments: heart failure Do you want consulting provider notified?: Yes 08/20/21 11:37 Consult Physician Routine Consulting Provider: Scott Adan Consult Reason/Comments: Mild acute on chornic hypercapnia. Evaluate for home BIPAP Do you want consulting provider notified?: Yes 08/21/21 11:40 Consult Physician Routine Consulting Provider: Eldon Cox Consult Reason/Comments: Altered mental status Do you want consulting provider notified?: Yes Primary care physician: [facility] Hospital Course: Diagnoses at discharge: #Acute on chronic systolic heart failure #Chronic hypercapnic respiratory failure #Encephalopathy likely due to underlying dementia which is exacerbated by being in the hospital #A. fib with RVR #COPD not in exacerbation #Chronic hypoxia #CK D stage III #History of CVA #Hypertension HPI Patient is a 71-year-old male with congestive systolic heart failure with an EF of less than 20%, COPD on 3 L nasal cannula, atrial fibrillation, CVA, hyperlipidemia, hypertension who presents to the ED with worsening lower extremity edema. Patient was recently admitted about a month ago for COPD ex acerbation. Today patient states that the lower extremity edema has been worsening over the past week. Patient states that his shortness of breath is close to his baseline. Patient denies any increase in his fluid intake or any change in his diet with excess salt. He states that he has been compliant with his medications. In the ED patient's creatinine was 1.36 (baseline is 1.6), chest x-ray showed cardiomegaly with mild increased central vascular congestion without pleural effusion or pneumothorax. Patient's BNP is similar to BNP on last admission which was around 25,000. Hospital course and treatment: Patient was admitted to the hospital with acute on chronic systolic congestive heart failure, he was treated with IV diuretics switched to oral at the time of discharge. Demadex was added and patient was continued on Lasix. He was evaluated by neurology, no evidence of seizures EEG was obtained. Symptoms likely associated with underlying dementia. He was evaluated by pulmonology for acute on chronic COPD exacerbation with hypercapnia, he is not a candidate for BiPAP. Slight and was evaluated by cardiology for diuretics acute on chronic systolic congestive heart failure ejection fraction about 20%. Patient feels better. Mental status likely at baseline with being partially oriented, exacerbated being in the hospital. Plan discussed with patient's family over the phone. They want patient to be discharged home. We will discharge patient home with outpatient follow-up. Patient Condition at Discharge: Fair Plan - Discharge Summary Discharge Rx Participant: No New Discharge Prescriptions: New acetaZOLAMIDE [Diamox] 125 mg PO BID 30 Days #60 tab Continue Sertraline HCl [Zoloft] 100 mg PO BID Omeprazole [PriLOSEC] 20 mg PO BID allopurinoL [Zyloprim] 100 mg PO BID Aspirin [Adult Low Dose Aspirin EC] 81 mg PO DAILY Acetaminophen-Codeine 300-30mg [Tylenol w/codeine #3] 1 tab PO TID PRN PRN Reason: Pain Rosuvastatin Calcium [Crestor] 20 mg PO HS Albuterol Sulfate [Albuterol Sulfate Hfa] 2 puff INHALATION RT-QID PRN PRN Reason: Shortness Of Breath Apixaban [Eliquis] 5 mg PO BID Jevity 1.5 Jakob Liquid 2 can PO TID Metoprolol Succinate (ER) [Toprol XL] 100 mg PO DAILY Ipratropium-Albuterol Nebulize [Duoneb 0.5 mg-3 mg/3 ml Soln] 3 ml INHALATION RT-QID Furosemide [Lasix] 40 mg PO DAILY #30 lisinopriL [Zestril] 2.5 mg PO DAILY Spironolactone 25 mg PO DAILY Potassium Chloride [Klor-Con 10 ER] 10 meq PO DAILY Mag-Ox 420mg 420 mg PO BID Gabapentin [Neurontin] 600 mg PO TID Thiamine [Vitamin B-1] 100 mg PO DAILY #30 tab Discharge Medication List Aspirin [Adult Low Dose Aspirin EC] 81 mg PO DAILY 09/02/17 [History] Omeprazole [PriLOSEC] 20 mg PO BID 09/02/17 [History] Sertraline HCl [Zoloft] 100 mg PO BID 09/02/17 [History] allopurinoL [Zyloprim] 100 mg PO BID 09/02/17 [History] Acetaminophen-Codeine 300-30mg [Tylenol w/codeine #3] 1 tab PO TID PRN 04/01/19 [History] Rosuvastatin Calcium [Crestor] 20 mg PO HS 08/20/19 [History] Albuterol Sulfate [Albuterol Sulfate Hfa] 2 puff INHALATION RT-QID PRN 12/27/20 [History] Apixaban [Eliquis] 5 mg PO BID 12/27/20 [History] Jevity 1.5 Jakob Liquid 2 can PO TID 12/27/20 [History] Metoprolol Succinate (ER) [Toprol XL] 100 mg PO DAILY 12/27/20 [History] Spironolactone 25 mg PO DAILY 12/27/20 [History] lisinopriL [Zestril] 2.5 mg PO DAILY 12/27/20 [History] Ipratropium-Albuterol Nebulize [Duoneb 0.5 mg-3 mg/3 ml Soln] 3 ml INHALATION RT-QID 02/08/21 [History] Mag-Ox 420mg 420 mg PO BID 02/08/21 [History] Potassium Chloride [Klor-Con 10 ER] 10 meq PO DAILY 02/08/21 [History] Gabapentin [Neurontin] 600 mg PO TID 07/20/21 [History] Furosemide [Lasix] 40 mg PO DAILY #30 07/23/21 [Rx] Thiamine [Vitamin B-1] 100 mg PO DAILY #30 tab 07/23/21 [Rx] acetaZOLAMIDE [Diamox] 125 mg PO BID 30 Days #60 tab 08/22/21 [Rx] Follow up Appointment(s)/Referral(s): [facility],Clinic [Primary Care Provider] - 1-2 days Discharge Disposition: HOME SELF-CARE
--- NOTE | 2021-08-22 12:51 | P.PN ---
Subjective Progress Note Date: 08/22/21 HISTORY OF PRESENTING ILLNESS This is a pleasant 71-year-old male past medical history significant for coronary artery disease, ischemic cardiomyopathy status post AICD, hypertension, chronic systolic heart failure, persistent atrial fibrillation on long-term anticoagulation and former nicotine dependence. He follows in the office with Dr. Curiel. We have been asked to see in consultation for shortness of breath. He presented to the hospital with symptoms of shortness of breath. Chest x-ray revealed pulmonary vascular congestion with an elevated proBNP. He has been started on IV diuretics. He is diuresing well. He has no lower extremity edema but does still endorse some shortness of breath. He has no chest pain or dizziness. EKG reveals ventricular paced with underlying atrial fibrillation. Laboratory data reviewed, sodium 142, potassium 4.7, CO2 42, creatinine 1.53, magnesium 2.2, troponin 0.03, NT proBNP 25,700. Most recent echocardiogram from January 2021 reveals severely impaired LV systolic function with global hypokinesia and ejection fraction of less than 20%, mild to moderate MR and moderate TR with RVSP of 47. 08/20/2020 Patient seen and examined sitting up in no acute distress. He is fatigued and confused per the nursing staff. Blood pressure 115/62 heart rate 68 afebrile maintaining oxygen saturation on nasal cannula. Laboratory data reviewed, ABG showed CO2 of 77. Creatinine 1.47. He was transitioned to oral diuretics yesterday. 08/21/2021 Patient examined this morning at the bedside. Patient is somewhat confused at the time of examination. He denies chest pain or pressure. He currently denies SOB. He remains on oral diuretics. He remains on 2 L nasal cannula with oxygen saturations greater than 92%. 08/22/2021 Patient examined this morning. Patient is sitting up in the chair. He remains somewhat confused. He denies chest pain or pressure. He denies shortness of breath. He remains on oral diuretics. Creatinine improved today to 1.55. PHYSICAL EXAMINATION CONSTITUTIONAL: No apparent distress. HEENT: Head is normocephalic. Pupils are equal, round. Sclerae anicteric. Mucous membranes of the mouth are moist. No JVD. No carotid bruit. CHEST EXAMINATION: Lungs diminished bilaterally. No chest wall tenderness is noted on palpation or with deep breathing. HEART EXAMINATION: Regular rate and rhythm. S1, S2 heard. No murmurs, gallops or rub. EXTREMITIES: 2+ peripheral pulses, no lower extremity edema and no calf tenderness. ASSESSMENT Acute on chronic systolic heart failure Chronic persistent atrial fibrillation Ischemic cardiomyopathy status post AICD Hypertension Hypercapnia PLAN Continue current cardiac medications Patient is stable from a cardiac standpoint No further inpatient recommendations from a cardiology perspective We will sign off. Please reconsult if needed. Nurse Practitioner note has been reviewed, I agree with a documented findings and plan of care. Patient was seen and examined. Objective - Vital Signs Vital signs: Vital Signs Temp 98.1 F 08/22/21 04:08 Pulse 60 08/22/21 08:00 Resp 18 08/22/21 08:00 BP 115/77 08/22/21 04:08 Pulse Ox 95 08/22/21 08:00 FiO2 28 08/20/21 23:56 Intake & Output 08/21/21 08/22/21 08/22/21 18:59 06:59 18:59 Intake Total 340 Balance 340 Weight 96 kg Intake: Oral 340 Other: Voiding Method Toilet Toilet Toilet Urinal Urinal Urinal - Labs CBC & Chem 7: 08/22/21 08:38 08/22/21 08:38 Labs: Abnormal Lab Results - Last 24 Hours (Table) 08/22/21 08/22/21 Range/Units 08:38 08:38 RBC 3.86 L (4.30-5.90) m/uL Hgb 11.7 L (13.0-17.5) gm/dL MCV 101.6 H (80.0-100.0) fL MCHC 29.9 L (31.0-37.0) g/dL RDW 15.8 H (11.5-15.5) % Plt Count 104 L (150-450) k/uL Chloride 97 L (98-107) mmol/L Carbon Dioxide 35 H (22-30) mmol/L BUN 46 H (9-20) mg/dL Creatinine 1.55 H (0.66-1.25) mg/dL
--- NOTE | 2021-08-22 13:11 | P.PN ---
Subjective Progress Note Date: 08/22/21 This is a 71-year-old male patient with a known history of CVA with residual aphasia and right-sided weakness, atrial fibrillation, coronary artery disease with previous stent placement, ischemic cardiomyopathy with AICD placement, severely impaired left ventricular systolic function with ejection fraction less than 20% hearing disorder, hypertension, hyperlipidemia, anxiety/depression, and again I'm going tobacco dependence, history of daily alcohol use. He had presented to the ED with complaints of increasing shortness of breath. He was admitted for the same on 07/21/21 and we saw him in consultation back then. We have been asked to see in consultation for shortness of breath and hypercapnia . He presented to the hospital with symptoms of shortness of breath. Chest x-ray revealed pulmonary vascular congestion with an elevated proBNP. He has been started on IV diuretics. He is diuresing well. He has no lower extremity edema but does still endorse some shortness of breath. He has no chest pain or dizziness. EKG reveals ventricular paced with underlying atrial fibrillation. Laboratory data reviewed, sodium 142, potassium 4.7, CO2 42, creatinine 1.53, magnesium 2.2, troponin 0.03, NT proBNP 25,700. Most recent echocardiogram from January 2021 reveals severely impaired LV systolic function with global hypokinesia and ejection fraction of less than 20%, mild to moderate MR and moderate TR with RVSP of 47. 08/22/2021, MCV patient for a follow-up. The patient is doing well. His resting comfortably in bed and there is no significant respiratory distress. The patient is currently on oral Lasix and the patient was taken off the IV Lasix. He is on O2 at 2 L per minute nasal cannula. The patient has been negative fluid balance. The patient has a white cell count of 4.5 with a hemoglobin of 11.7 and a platelet count of 104. Creatinine is at 1.55 with a mean of 46 and the sodium level is at 139. No nausea. No vomiting. No chest pain. The patient has expressive aphasia related to previous CVA. The patient also has significant cardiomyopathy with an ejection fraction of less than 20%. Objective - Vital Signs Vital signs: Vital Signs Temp 98.1 F 08/22/21 04:08 Pulse 60 08/22/21 08:00 Resp 18 08/22/21 08:00 BP 115/77 08/22/21 04:08 Pulse Ox 95 08/22/21 08:00 FiO2 28 08/20/21 23:56 Intake & Output 08/21/21 08/22/21 08/22/21 18:59 06:59 18:59 Intake Total 340 Balance 340 Weight 96 kg Intake: Oral 340 Other: Voiding Method Toilet Toilet Toilet Urinal Urinal Urinal - Exam GENERAL EXAM: Alert, disheveled 71-year-old male patient, on 2 L nasal cannula, comfortable in no apparent distress. HEAD: Normocephalic. EYES: Normal reaction of pupils, equal size. NOSE: Clear with pink turbinates. THROAT: No erythema or exudates. NECK: No masses, no JVD. CHEST: No chest wall deformity. LUNGS: Equal air entry with bilateral end expiratory wheeze, few scattered rhonchi. CVS: S1 and S2 normal with no audible murmur, regular rhythm. ABDOMEN: No hepatosplenomegaly, normal bowel sounds, no guarding or rigidity. SPINE: No scoliosis or deformity SKIN: No rashes CENTRAL NERVOUS SYSTEM: No focal deficits, tone is normal in all 4 extremities. EXTREMITIES: There is no peripheral edema. No clubbing, no cyanosis. Peripheral pulses are intact. - Labs CBC & Chem 7: 08/22/21 08:38 08/22/21 08:38 Labs: Abnormal Lab Results - Last 24 Hours (Table) 08/22/21 08/22/21 Range/Units 08:38 08:38 RBC 3.86 L (4.30-5.90) m/uL Hgb 11.7 L (13.0-17.5) gm/dL MCV 101.6 H (80.0-100.0) fL MCHC 29.9 L (31.0-37.0) g/dL RDW 15.8 H (11.5-15.5) % Plt Count 104 L (150-450) k/uL Chloride 97 L (98-107) mmol/L Carbon Dioxide 35 H (22-30) mmol/L BUN 46 H (9-20) mg/dL Creatinine 1.55 H (0.66-1.25) mg/dL Assessment and Plan Plan: 1 Acute exacerbation of chronic systolic congestive heart failure, improving and the patient was taken off the IV Lasix and the patient is currently on oral Lasix and Aldactone. Overall restlessness is stable and the patient remains on oxygen at 3 L per minute nasal cannula. 2 chronic obstructive pulmonary disease, chronic, with a component of chronic hypercapneic respiratory failure, compensated 3 History of severe ischemic cardiomyopathy with ejection fraction less than 20% 4 History of AICD placement 5 Coronary artery disease with previous stent placement 6 History of CVA with residual expressive aphasia and right-sided weakness 7 Hypertension 8 CKD, stage 3 9 Hyperlipidemia 10 Chronic atrial fibrillation, anticoagulant with Eliquis 11 History of gout 12 Chronic and ongoing tobacco dependence 13 History of daily alcohol use 14 History of dysphagia secondary to the CVA with previous PEG tube insertion and subsequent removal 15 Hearing disorder Plan Switch this patient oral Lasix Discharge planning is in progress Continue Aldactone Continue monitoring the patient's electrolytes. Continue anticoagulation with Eliquis Condition is stable. Home O2. We'll follow
--- NOTE | 2021-08-22 14:38 | EEG ---
ELECTROENCEPHALOGRAM REPORT DATE OF SERVICE: 08/22/2021 CLINICAL HISTORY: This is a 71-year-old gentleman with history of left MCA stroke who has altered mental status. The video EEG is obtained to evaluate for seizure epileptiform activity. Relevant medication: The patient is not on any antiepileptic drugs. EEG TYPE: A routine 21-channel EEG is performed with video using the 10/20 electrode placement system. DESCRIPTION: Wakefulness and drowsiness are obtained. During awake state, the background consists of low to moderate voltage of 5-6 hertz activity. There is no physiological stage II sleep architecture seen. There is no focal slowing. Interictal and ictal is none. ACTIVATION PROCEDURE: Photic stimulation did not evoke a posterior driving response. There is no abnormality during the photic stimulation. Hyperventilation is not performed. CLINICAL INTERPRETATION: This is an abnormal routine EEG. The background slowing is suggestive of severe encephalopathy likely due to toxic metabolic abnormality. Otherwise there is no focal slowing, epileptiform discharges or seizure on the EEG. Clinical correlation is recommended. COLLIN / RAVIN: [id number] / MTDD
[2021-08-22 14:46] VITALS: BP 96/53; PULSE 70
--- NOTE | 2021-08-22 18:43 | P.PN ---
Subjective Progress Note Date: 08/22/21 The patient is seen and was sitting in a recliner chair and stated he is doing well and denies of any issues and wants to go home. Per nurse he is doing better today. Objective - Vital Signs Vital signs: Vital Signs Temp 98.1 F 08/22/21 04:08 Pulse 70 08/22/21 14:00 Resp 18 08/22/21 14:00 BP 96/53 08/22/21 12:00 Pulse Ox 95 08/22/21 12:00 FiO2 28 08/20/21 23:56 Intake & Output 08/21/21 08/22/21 08/22/21 18:59 06:59 18:59 Intake Total 340 Balance 340 Weight 96 kg Intake: Oral 340 Other: Voiding Method Toilet Toilet Toilet Urinal Urinal Urinal - Exam GENERAL: The patient is lying in bed and is not in acute distress. NEUROLOGICAL: Higher mental function: The patient is drowsy but is awakeable to voice. Is o riented to self. Could not tell me year or month. Is following simple commands. Has aphasia (seems expressive). He correctly name pen. With glasses he say eye. No neglect. Cranial nerves: The pupils are round, equal and reactive to light. Visual tse are full to confrontation throughout. Extraocular movement is intact no nystagmus is noted. Right lower facial droop (old). Has mild dysarthria. Otherwise limited because of his condition. Motor: The strength is lifting all extremities above gravity. Normal tone and bulk. Cerebellum: Unable to assess. Sensation: Unable to assess. Reflexes (right/left): 2+ throughout. Plantars are mute bilaterally. - Labs CBC & Chem 7: 08/22/21 08:38 08/22/21 08:38 Labs: Abnormal Lab Results - Last 24 Hours (Table) 08/22/21 08/22/21 Range/Units 08:38 08:38 RBC 3.86 L (4.30-5.90) m/uL Hgb 11.7 L (13.0-17.5) gm/dL MCV 101.6 H (80.0-100.0) fL MCHC 29.9 L (31.0-37.0) g/dL RDW 15.8 H (11.5-15.5) % Plt Count 104 L (150-450) k/uL Chloride 97 L (98-107) mmol/L Carbon Dioxide 35 H (22-30) mmol/L BUN 46 H (9-20) mg/dL Creatinine 1.55 H (0.66-1.25) mg/dL Assessment and Plan Assessment: Altered mental status due to metabolic encephalopathy ( acute on chronic kidney insufficiency, elevated CO2). History of stroke over the left MCA with residual aphasia and right facial droop Acute on chronic systolic heart failure Chronic hypercapnic Atrial fibrillation on eliquis COPD Acute on chronic kidney insufficiency Plan: vitamin B12: 604, folate: 9.30, ammonia level:19, TSH: 0.955. Routine EEG: Moderate encephalopathy. Otherwise there is no focal slowing, epileptiform discharges or seizure. Every 4 hours neuro checks Pulmonary team is on board Cardiology team is on board We'll defer the rest the medical management to primary team. The plan is discussed with the patient's (via phone) and his nurse. No further neurological work-up and patient is clear for discharge. Eldon Cox M.D. Neuro-hospitalist Time with Patient: Less than 30
== END 2021-08-22 17:53 | disposition home or self-care (01) | DRG 291 ==
LOC: EC 12:16 → 3SCARD 15:58
PROVIDERS: ADMIT Internal Medicine; ATTEND Internal Medicine
DX: I13.0 Hypertensive heart and chronic kidney disease with heart failure and stage 1 through stage 4 chronic kidney disease, or unspecified chronic kidney disease (principal); G93.41 Metabolic encephalopathy; I50.23 Acute on chronic systolic (congestive) heart failure; J96.21 Acute and chronic respiratory failure with hypoxia; J96.22 Acute and chronic respiratory failure with hypercapnia; I48.19 Other persistent atrial fibrillation; I69.351 Hemiplegia and hemiparesis following cerebral infarction affecting right dominant side; J44.9 Chronic obstructive pulmonary disease, unspecified; E78.5 Hyperlipidemia, unspecified; F03.90 Unspecified dementia, unspecified severity, without behavioral disturbance, psychotic disturbance, mood disturbance, and anxiety; F17.210 Nicotine dependence, cigarettes, uncomplicated; F32.A Depression, unspecified; F43.10 Post-traumatic stress disorder, unspecified; G93.89 Other specified disorders of brain; H91.90 Unspecified hearing loss, unspecified ear; I08.1 Rheumatic disorders of both mitral and tricuspid valves; I25.10 Atherosclerotic heart disease of native coronary artery without angina pectoris; I25.5 Ischemic cardiomyopathy; I69.320 Aphasia following cerebral infarction; I69.398 Other sequelae of cerebral infarction; N18.9 Chronic kidney disease, unspecified; Z79.01 Long term (current) use of anticoagulants; Z79.82 Long term (current) use of aspirin; Z79.899 Other long term (current) drug therapy; Z95.5 Presence of coronary angioplasty implant and graft; Z95.810 Presence of automatic (implantable) cardiac defibrillator; Z88.8 Allergy status to other drugs, medicaments and biological substances; Z98.42 Cataract extraction status, left eye; Z98.41 Cataract extraction status, right eye; Z88.2 Allergy status to sulfonamides
CPT/HCPCS: 36415; 36600; 51798; 70450; 71046; 80048; 80053; 81001; 82140; 82607; 82746; 82805; 83605; 83735; 83880; 84443; 84484; 85025; 85610; 85730; 93005; 94660; 94760; 95816; 96374; 96376; 99285

== ENCOUNTER 2021-10-11 20:29 | Inpatient (IN) | payer OTHER, MEDICARE ==
[2021-10-11] MEDS ORDERED: ACETAMINOPHEN TAB 500 MG TAB PO STA (20:41)
[2021-10-11] MEDS ORDERED: SODIUM CHLORIDE 0.9% 500 ML 500 ML IV SCH (20:45)
--- NOTE | 2021-10-11 20:51 | ED ---
General Adult HPI - General Chief complaint: Altered Mental Status Stated complaint: AMS Time Seen by Provider: 10/11/21 20:31 Source: EMS Mode of arrival: EMS Limitations: altered mental status - History of Present Illness Initial comments: Dictation was produced using [employer] dictation software. please excuse any grammatical, word or spelling errors. Chief Complaint: 71-year-old with history of multiple comorbidities presents to the emergency department for altered mental status. History of Present Illness: 71-year-old male presents to the emergency department for altered mental status. Patient is brought in by EMS. History of present illness obtained from there is received report from EMS. According to nurse patient was brought here for altered mental status for the last 4 hours. There was no information about what the patient's baseline mentation. Patient is unreliable historian. When asked why he is here or what his name is he speaks non-sensible language. Patient has a history of stroke that affected his speech and has caused chronic right lower face facial droop The ROS documented in this emergency department record has been reviewed and confirmed by me. Those systems with pertinent positive or negative responses have been documented in the HPI. All other systems are other negative and/or noncontributory. PHYSICAL EXAM: General Impression: Alert, not in acute distress, tangential speech HEENT: Normocephalic atraumatic, extra-ocular movements intact, pupils equal and reactive to light bilaterally, mucous membranes moist. Cardiovascular: Heart regular rate and rhythm Chest: Able to complete full sentences, no retractions, no tachypnea Abdomen: abdomen soft, non-tender, non-distended, no organomegaly Musculoskeletal: Pulses present and equal in all extremities, no peripheral edema Motor: no focal deficits noted Neurological: CN II-XII grossly intact, no focal motor or sensory deficits noted, negative Lhermitte's, negative Brudzinski, negative Kernig's Skin: Intact with no visualized rashes Psych: Normal affect and mood ED course:-year-old well-appearing male presents emergency department for acute onset altered mental status. It's unclear what patient's baseline is. There is no history provided for me as to when patient was last normal or last baseline. Patient is unreliable historian. Vital signs upon arrival shows temperature of 102.4. Patient's well-appearing. He is not showing any signs of meningitis or encephalitis. He does appear to be confused but is in no acute distress. More history was obtained from the next of kin, Santa Bowen who is listed as patient's spouse. She reports that patient was last seen normal around 4:30 PM. At 7:30 she saw him and noticed that he was a little confused. Patient at baseline is very self-sufficient. He does have some speech impediment suffered from previous stroke but he ambulates, drives and cares for himself. He has similar episode like this in the past that was assumed to be secondary to hypercarbia. Patient given an NIH score of 6. Patient is not a candidate for alteplase however may be candidate for further intervention. [facility] [place] There is concern of sepsis given the patient has acute altered mental status and pyrexia. Patient has a history of heart failure with an ejection fraction seen on echocardiogram of 20%. Patient had a candidate for large fluid resuscitation at this time because of risk of fluid overload. Patient given 1 L bolus as opposed to 2400 mL of IV fluids for her ideal body weight and 30 mL per KG bolus per sepsis protocol. [place] [facility] [place] Dr. Mcclendon who agrees patient is not a thrombolysis candidate. He also reports that he is not a thrombectomy candidate. Computed tomography scan of brain shows encephalomalacia of the left temporal lobe from prior injury. Otherwise no other acute intracranial processes. CT angioma of the head and neck shows carotid bifurcation plaque with 50% stenosis. No evidence of dissection or any other acute intracranial processes. Chest x-ray shows right-sided airspace opacity suggestive of pneumonia. There is also cardiomegaly. Laboratory evaluation obtained. Leukocytosis told 0.0. Coag panel is negative. Venous blood gas is normal. No hypercarbia. Metabolic panel is within ac ceptable limits. 4 panel viral PCR is negative. A chin reevaluated at bedside at 10:45 PM from been stable medical condition. Patient is well-appearing and showed no signs of distress. He still however confused. His temperatures improvements of Tylenol. Patient be admitted to [facility] hospitalist group. Patient accepted by Lucretia Russell. Infectious disease and neurology consulted. EKG interpretation: Ventricular rate 82, paced rhythm, QRS 169, QTC 452. No no QTC prolongation, no ST or T-wave changes noted. EKG compared to 08/18/2021 showing no changes. Overall, this EKG is unremarkable - Related Data Home Medications Medication Instructions Recorded Confirmed Aspirin [Adult Low Dose Aspirin EC] 81 mg PO DAILY 09/02/17 10/11/21 Omeprazole [PriLOSEC] 20 mg PO BID 09/02/17 10/11/21 Sertraline HCl [Zoloft] 100 mg PO BID 09/02/17 10/11/21 allopurinoL [Zyloprim] 100 mg PO BID 09/02/17 10/11/21 Acetaminophen-Codeine 300-30mg 1 tab PO TID PRN 04/01/19 10/11/21 [Tylenol w/codeine #3] Rosuvastatin Calcium [Crestor] 20 mg PO HS 08/20/19 10/11/21 Albuterol Sulfate [Albuterol 2 puff INHALATION RT-QID PRN 12/27/20 10/11/21 Sulfate Hfa] Apixaban [Eliquis] 5 mg PO BID 12/27/20 10/11/21 Jevity 1.5 Jakob Liquid 2 can PO TID 12/27/20 10/11/21 Metoprolol Succinate (ER) [Toprol 100 mg PO DAILY 12/27/20 10/11/21 XL] Spironolactone 25 mg PO DAILY 12/27/20 10/11/21 lisinopriL [Zestril] 2.5 mg PO DAILY 12/27/20 10/11/21 Ipratropium-Albuterol Nebulize 3 ml INHALATION RT-QID 02/08/21 10/11/21 [Duoneb 0.5 mg-3 mg/3 ml Soln] Mag-Ox 420mg 420 mg PO BID 02/08/21 10/11/21 Potassium Chloride [Klor-Con 10 ER] 10 meq PO DAILY 02/08/21 10/11/21 Gabapentin [Neurontin] 600 mg PO TID 07/20/21 10/11/21 Previous Rx's Medication Instructions Recorded Furosemide [Lasix] 40 mg PO DAILY #30 07/23/21 Thiamine [Vitamin B-1] 100 mg PO DAILY #30 tab 07/23/21 acetaZOLAMIDE [Diamox] 125 mg PO BID 30 Days #60 tab 08/22/21 Allergies Allergy/AdvReac Type Severity Reaction Status Date / Time fluticasone Allergy Dyspnea Verified 08/18/21 13:51 [From Wixela Inhub] metolazone [From Zaroxolyn] Allergy Rash/Hives Verified 08/18/21 13:51 salmeterol Allergy Dyspnea Verified 08/18/21 13:51 [From Wixela Inhub] warfarin [From Coumadin] Allergy Unknown Verified 08/18/21 13:51 fluvastatin AdvReac weakness/muscle Verified 08/18/21 13:51 pain simvastatin AdvReac muscle pain Verified 08/18/21 13:51 sulfamethoxazole AdvReac Abdominal Verified 08/18/21 13:51 [From Bactrim] Pain trimethoprim [From Bactrim] AdvReac Abdominal Verified 08/18/21 13:51 Pain Review of Systems ROS Statement: Those systems with pertinent positive or pertinent negative responses have been documented in the HPI. ROS Other: All systems not noted in ROS Statement are negative. 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 sided weakness,cataracts, bruises easily due to coumadin,does not wear cpap,neuropathy moe. feet History of Any Multi-Drug Resistant Organisms: None Reported Past Surgical History: AICD, Heart Catheterization With Stent Additional Past Surgical History / Comment(s): AICD/Pacemaker, PEG tube placed in [address] Anglin in 2019 Past Anesthesia/Blood Transfusion Reactions: No Reported Reaction Date of Last Stent Placement:: unk Type of Cardiac Device: AICD Device Placement Date:: 2009 Past Psychological History: Anxiety, Depression, PTSD Smoking Status: Former smoker Past Drug Use History: None Reported - Past Family History Brother(s) Family Medical History: Deep Vein Thrombosis (DVT) General Exam Limitations: altered mental status Course Vital Signs 10/11/21 10/11/21 10/11/21 20:33 21:15 21:30 Temperature 102.4 F H 99.5 F 99.2 F Pulse Rate 80 71 78 Respiratory 20 18 20 Rate Blood Pressure 101/65 90/48 114/65 O2 Sat by Pulse 98 98 100 Oximetry 10/11/21 10/11/21 10/11/21 21:45 22:00 22:15 Temperature 100 F H 100.7 F H 100.5 F H Pulse Rate 75 69 69 Respiratory 18 18 20 Rate Blood Pressure 92/46 87/57 95/58 O2 Sat by Pulse 93 L 97 Oximetry Medical Decision Making - Lab Data Result diagrams: 10/11/21 20:51 10/11/21 20:51 Lab Results 10/11/21 10/11/21 10/11/21 Range/Units 20:51 20:51 20:51 WBC 12.0 H (3.8-10.6) k/uL RBC 4.39 (4.30-5.90) m/uL Hgb 13.2 (13.0-17.5) gm/dL Hct 44.0 (39.0-53.0) % MCV 100.1 H (80.0-100.0) fL MCH 30.1 (25.0-35.0) pg MCHC 30.1 L (31.0-37.0) g/dL RDW 17.7 H (11.5-15.5) % Plt Count 108 L (150-450) k/uL MPV 10.7 Neutrophils % 92 % Lymphocytes % 2 % Monocytes % 4 % Eosinophils % 1 % Basophils % 0 % Neutrophils # 11.0 H (1.3-7.7) k/uL Lymphocytes # 0.3 L (1.0-4.8) k/uL Monocytes # 0.5 (0-1.0) k/uL Eosinophils # 0.1 (0-0.7) k/uL Basophils # 0.1 (0-0.2) k/uL Hypochromasia Marked Anisocytosis Slight Macrocytosis Moderate PT 11.4 (9.0-12.0) sec INR 1.1 (<1.2) APTT 22.0 (22.0-30.0) sec VBG pH (7.31-7.41) VBG pCO2 (37-51) mmHg VBG HCO3 (24-28) mmol/L Sodium 139 (137-145) mmol/L Potassium 4.8 (3.5-5.1) mmol/L Chloride 104 (98-107) mmol/L Carbon Dioxide 27 (22-30) mmol/L Anion Gap 8 mmol/L BUN 50 H (9-20) mg/dL Creatinine 1.67 H (0.66-1.25) mg/dL Est GFR (CKD-EPI)AfAm 46 (>60 ml/min/1.73 sqM) Est GFR (CKD-EPI)NonAf 40 (>60 ml/min/1.73 sqM) Glucose 119 H (74-99) mg/dL POC Glucose (mg/dL) (70-110) mg/dL POC Glu [employer] Developer ID Plasma Lactic Acid Marlon (0.7-2.0) mmol/L Calcium 9.1 (8.4-10.2) mg/dL Total Bilirubin 0.8 (0.2-1.3) mg/dL AST 30 (17-59) U/L ALT 18 (4-49) U/L Alkaline Phosphatase 97 (38-126) U/L Total Protein 6.7 (6.3-8.2) g/dL Albumin 4.0 (3.5-5.0) g/dL Influenza Type A (PCR) (Not Detectd) Influenza Type B (PCR) (Not Detectd) RSV (PCR) (Not Detectd) SARS-CoV-2 (PCR) (Not Detectd) 10/11/21 10/11/21 10/11/21 Range/Units 20:51 21:09 21:42 WBC (3.8-10.6) k/uL RBC (4.30-5.90) m/uL Hgb (13.0-17.5) gm/dL Hct (39.0-53.0) % MCV (80.0-100.0) fL MCH (25.0-35.0) pg MCHC (31.0-37.0) g/dL RDW (11.5-15.5) % Plt Count (150-450) k/uL MPV Neutrophils % % Lymphocytes % % Monocytes % % Eosinophils % % Basophils % % Neutrophils # (1.3-7.7) k/uL Lymphocytes # (1.0-4.8) k/uL Monocytes # (0-1.0) k/uL Eosinophils # (0-0.7) k/uL Basophils # (0-0.2) k/uL Hypochromasia Anisocytosis Macrocytosis PT (9.0-12.0) sec INR (<1.2) APTT (22.0-30.0) sec VBG pH (7.31-7.41) VBG pCO2 (37-51) mmHg VBG HCO3 (24-28) mmol/L Sodium (137-145) mmol/L Potassium (3.5-5.1) mmol/L Chloride (98-107) mmol/L Carbon Dioxide (22-30) mmol/L Anion Gap mmol/L BUN (9-20) mg/dL Creatinine (0.66-1.25) mg/dL Est GFR (CKD-EPI)AfAm (>60 ml/min/1.73 sqM) Est GFR (CKD-EPI)NonAf (>60 ml/min/1.73 sqM) Glucose (74-99) mg/dL POC Glucose (mg/dL) 136 H (70-110) mg/dL POC Glu Web [employer] Developer ID Casandra Rodriguez Plasma Lactic Acid Marlon 1.4 (0.7-2.0) mmol/L Calcium (8.4-10.2) mg/dL Total Bilirubin (0.2-1.3) mg/dL AST (17-59) U/L ALT (4-49) U/L Alkaline Phosphatase (38-126) U/L Total Protein (6.3-8.2) g/dL Albumin (3.5-5.0) g/dL Influenza Type A (PCR) Not Detected (Not Detectd) Influenza Type B (PCR) Not Detected (Not Detectd) RSV (PCR) Not Detected (Not Detectd) SARS-CoV-2 (PCR) Not Detected (Not Detectd) 10/11/21 Range/Units 21:42 WBC (3.8-10.6) k/uL RBC (4.30-5.90) m/uL Hgb (13.0-17.5) gm/dL Hct (39.0-53.0) % MCV (80.0-100.0) fL MCH (25.0-35.0) pg MCHC (31.0-37.0) g/dL RDW (11.5-15.5) % Plt Count (150-450) k/uL MPV Neutrophils % % Lymphocytes % % Monocytes % % Eosinophils % % Basophils % % Neutrophils # (1.3-7.7) k/uL Lymphocytes # (1.0-4.8) k/uL Monocytes # (0-1.0) k/uL Eosinophils # (0-0.7) k/uL Basophils # (0-0.2) k/uL Hypochromasia Anisocytosis Macrocytosis PT (9.0-12.0) sec INR (<1.2) APTT (22.0-30.0) sec VBG pH 7.37 (7.31-7.41) VBG pCO2 42 (37-51) mmHg VBG HCO3 24 (24-28) mmol/L Sodium (137-145) mmol/L Potassium (3.5-5.1) mmol/L Chloride (98-107) mmol/L Carbon Dioxide (22-30) mmol/L Anion Gap mmol/L BUN (9-20) mg/dL Creatinine (0.66-1.25) mg/dL Est GFR (CKD-EPI)AfAm (>60 ml/min/1.73 sqM) Est GFR (CKD-EPI)NonAf (>60 ml/min/1.73 sqM) Glucose (74-99) mg/dL POC Glucose (mg/dL) (70-110) mg/dL POC Glu Web Methods Developer ID Plasma Lactic Acid Marlon (0.7-2.0) mmol/L Calcium (8.4-10.2) mg/dL Total Bilirubin (0.2-1.3) mg/dL AST (17-59) U/L ALT (4-49) U/L Alkaline Phosphatase (38-126) U/L Total Protein (6.3-8.2) g/dL Albumin (3.5-5.0) g/dL Influenza Type A (PCR) (Not Detectd) Influenza Type B (PCR) (Not Detectd) RSV (PCR) (Not Detectd) SARS-CoV-2 (PCR) (Not Detectd) Critical Care Time Critical Care Time: Yes Total Critical Care Time: 33 Disposition Clinical Impression: Encephalopathy, Pneumonia Disposition: ADMITTED IP TO THIS HOSP Condition: Serious Referrals: [facility],Clinic [Primary Care Provider] - 1-2 days Decision Time: 22:47
[2021-10-11 20:58] LABS: Anisocytosis Slight; Basophils # (A) 0.1 k/uL (0-0.2); Basophils % (A) 0 %; Eosinophils # (A) 0.1 k/uL (0-0.7); Eosinophils % (A) 1 %; HGB 13.2 gm/dL (13.0-17.5); Hypochromasia Marked; Lymphocytes # (A) 0.3 k/uL (1.0-4.8); Lymphocytes % (A) 2 %; MCH 30.1 pg (25.0-35.0); MCHC 30.1 g/dL (31.0-37.0); MCV 100.1 fL (80.0-100.0); Macrocytosis Moderate; Mean Platelet Volume 10.7; Monocytes # (A) 0.5 k/uL (0-1.0); Monocytes % (A) 4 %; Neutrophils % (A) 92 %; Platelet Count 108 k/uL (150-450); RBC 4.39 m/uL (4.30-5.90); RDW 17.7 % (11.5-15.5)
[2021-10-11] MEDS ORDERED: SODIUM CHLORIDE 0.9% 1,000 ML IV STA (21:01)
[2021-10-11 21:07] LABS: Calcium 9.1 mg/dL (8.4-10.2); Potassium 4.8 mmol/L (3.5-5.1); Total Bilirubin 0.8 mg/dL (0.2-1.3); Total Protein 6.7 g/dL (6.3-8.2)
[2021-10-11 21:11] LABS: Glucose,Whole Blood 136 mg/dL (70-110)
[2021-10-11 21:25] LABS: INR 1.1 (<1.2); Prothrombin Time 11.4 sec (9.0-12.0)
--- NOTE | 2021-10-11 21:29 | XR ---
EXAMINATION TYPE: XR chest 1V portable DATE OF EXAM: 10/11/2021 9:04 PM COMPARISON: Chest radiographs from 08/18/2021. TECHNIQUE: XR chest 1V portable Portable AP radiograph of the chest. CLINICAL INDICATION:Male, 71 years old with history of Fever; FINDINGS: Lungs/Pleura: Right lower lung airspace opacities. No evidence pneumothorax pleural effusion. Pulmonary vascularity: Unremarkable. Heart/mediastinum: Cardiomediastinal silhouette is enlarged and stable. Two lead cardiac conduction d evice overlying the left hemithorax with lead tips projecting over the right ventricle and right atri um. Musculoskeletal: No acute osseous pathology. IMPRESSION: Right sided airspace opacities suggestive of pneumonia. 2. Cardiomegaly.
[2021-10-11 21:48] LABS: VBG PH 7.37 (7.31-7.41)
--- NOTE | 2021-10-11 21:48 | CT ---
EXAMINATION TYPE: CT brain wo con CT DLP: 1080.6 mGycm, Automated exposure control for dose reduction was used. DATE OF EXAM: 10/11/2021 9:29 PM COMPARISON: Prior CT Brain from 02/08/2021 . CLINICAL INDICATION:Male, 71 years old with history of AMS, weakness TECHNIQUE: Brain: Multiple axial CT images of the brain were obtained without IV contrast. FINDINGS: Brain: Extra-axial spaces: No abnormal extra-axial fluid collections. Ventricular system: Dilatation in proportion to cerebral atrophy. Cerebral parenchyma: Cephalization of the left temporal lobe from prior injury. There is diffuse whit e matter changes throughout the visualized cerebrum. Cerebral atrophy changes. No acute intraparenchy mal hemorrhage. The conroy-white junction is well differentiated. Cerebellum: Cerebellar atrophy Mass effect: No evidence of midline shift. Intracranial vasculature: Atherosclerotic calcifications of the intracranial vessels. Soft tissues: Normal. Calvarium/osseous structures: No depressed skull fracture. Paranasal sinuses and mastoid air cells: Mild scattered paranasal sinus disease. Visualized orbits: The lenses are surgically removed from the globes. IMPRESSION: 1. No acute intracranial process. 2. Encephalomalacia of the left temporal lobe from prior injury. 3. Nonspecific white matter changes, likely secondary to chronic small vessel ischemic disease.
--- NOTE | 2021-10-11 22:00 | CT ---
EXAMINATION TYPE: CT angio head neck CT DLP: 623.5 mGycm, Automated exposure control for dose reduction was used. DATE OF EXAM: 10/11/2021 9:44 PM COMPARISON: CT brain same day. CLINICAL INDICATION:Male, 71 years old with history of neurologic deficit, AMS, weakness TECHNIQUE: Axially acquired helical CT angiogram of the head and neck was obtained with contrast util izing 65 cc of [id number]-370 administered intravenously. Axial images are supplemented with 3D reconstru ctions which were post-processed at an independent workstation. NASCET criteria used. FINDINGS: CTA HEAD: No evidence of acute intracranial hemorrhage, mass effect, or midline shift. The ventricles, sulci, a nd cisterns are unremarkable. Redemonstration of evidence of inflammation of the left temporal lobe from prior injury. The visualized portions of the internal carotid arteries, middle cerebral arteries, anterior cerebral arteries, and posterior cerebral arteries are patent. The basilar and vertebral arteries are patent. Lenses are noted within the globes. CTA NECK: Right Carotid System: The common carotid artery and external carotid artery are patent. The carotid bifurcation demonstrate s predominantly calcified plaque with at least 50% stenosis. The remaining portions of the internal c arotid artery demonstrate normal size without significant narrowing. Left Carotid System: The common carotid artery and external carotid artery are patent. The carotid bifurcation demonstrate s predominantly calcified plaque with at least 50% stenosis. The remaining portions of the internal c arotid artery demonstrate normal size without significant narrowing. Vertebral arteries are patent without evidence hemodynamically significant stenosis. There is a 4 vessel aortic arch. The origins of the great vessels are patent. No evidence of hemodyna mically significant stenosis. Subtle groundglass opacities are seen predominantly in the right lung with central cavitations. Cardi ac conduction leads are seen within the left central venous vasculature. IMPRESSION: 1. Bilateral carotid bifurcation predominate calcified plaque with at least 50% stenosis. 2. No evidence of dissection of the cervical internal carotid arteries or vertebral arteries 3. No evidence of intracranial aneurysm. 4. Scattered right sided lung opacities with a few areas of central cavitations, correlate for infec tious/inflammatory process.
[2021-10-11] MEDS ORDERED: PIPERACILLIN-TAZOBACTAM 3.375 GM in SODIUM CHLORIDE 0.9% 100 ML IVPB ONE (22:30)
[2021-10-11] MEDS ORDERED: NALOXONE 0.4 MG/ML 1 ML VIAL IV PRN (22:44)
[2021-10-11] MEDS ORDERED: ACETAMINOPHEN TAB 325 MG TAB PO PRN (22:44)
[2021-10-11] MEDS ORDERED: SODIUM CHLORIDE 0.9% 1,000 ML IV SCH (22:45)
[2021-10-12] MEDS: SODIUM CHLORIDE 0.9% 1,000 ML IV SCH ×2 (01:12→04:47)
[2021-10-12] MEDS ORDERED: SODIUM CHLORIDE 0.9% 500 ML 250 ML IV ONE (02:37)
[2021-10-12 03:03] LABS: Glucose,Whole Blood 124 mg/dL (70-110)
[2021-10-12] MEDS ORDERED: SODIUM CHLORIDE 0.9% 500 ML 500 ML IV ONE (03:12)
[2021-10-12] MEDS: LACTATED RINGERS 1,000 ML IV SCH ×2 (03:35→04:45)
[2021-10-12] MEDS: PIPERACILLIN-TAZOBACTAM 3.375 GM in SODIUM CHLORIDE 0.9% 100 ML IVPB SCH ×2 (06:16→14:53)
[2021-10-12 07:15] LABS: Appearance,Urine Clear (Clear); Bilirubin,Urine Negative (Negative); Blood,Urine Trace (Negative); Color,Urine Yellow; Glucose,Urine (UA) Negative (Negative); Ketones,Urine Negative (Negative); Leukocyte Esterase,Urine Negative (Negative); Nitrite,Urine Negative (Negative); Protein,Urine 1+ (Negative); RBC,Urine 1 /hpf (0-5); Specific Gravity,Urine 1.023 (1.001-1.035); Urobilinogen,Urine <2.0 mg/dL (<2.0); WBC,Urine 1 /hpf (0-5)
--- NOTE | 2021-10-12 14:27 | P.CNNES ---
History of Present Illness Consult date: 10/12/21 Requesting physician: Christian Woodard Reason for Consult: Encephalopathy, acute History of Present Illness: Patient is a 71-year-old right-handed male, with history of stroke with residual significant expressive aphasia, came to the hospital by ambulance yesterday at 8:29 PM. Patient not able to provide history because of expressive aphasia. As per EMS flow sheet, when they arrived, patient was sitting in the bed, receiving initial assessment by [facility]. Patient was alert but confused. Per family the patient began to present with confusion approximately 4 hours earlier. Patient has previous history of CVA with right- sided deficits and has right facial droop as well as right-sided weakness as a residual deficits from the stroke. Patient has decreased urinary output for the past few days. EKG shows a regular rate and demand pacemaker. Patient's blood glucose was 181. Patient's saturation was 94% on oxygen 3 litre per minute. Temperature 102.2. Saturation dropped to 83%. Systolic blood pressure was 100, diastolic not able to auscultate. Pulse of 92. Respiration 18. On arrival temperature was 102.4, blood pressure 101/65 and oxygen 98%. Blood t est shows WBC 12.0 hemoglobin 13.2, elevated MCV 100.1, platelets 108. PT/PTT normal, electrolytes are normal BUN 50 creatinine 1.67. Hepatic panel normal. UA negative. Influenza screen, RSV and coronavirus negative. CT head revealed no acute process. Encephalomalacia of the left temporal lobe from prior injury. Nonspecific white matter changes. I personally reviewed CT head, agree with e findings. EKG shows electronic ventricular pacemaker. Patient was recently seen by Dr. Eldon Cox, on 08/22/2021 for altered mental status due to metabolic encephalopathy. Patient has acute on chronic kidney insufficiency, elevated CO2. Patient has history of stroke over the left MCA with residual aphasia and right facial droop. Also has acute on chronic systolic heart failure, chronic hypercapnia atrial fibrillation on Eliquis, COPD. Patient's vitamin B12 was 604, folate 9.3, ammonia was normal. TSH normal. Routine EEG showed moderate encephalopathy. Otherwise there is no focal slowing, epileptiform discharges or seizures. Review of her medication list indicates patient is taking gabapentin 600 mg 3 times a day, which is high for his renal functions. Also on Diamox 125 mg twice a day, Lasix 40 mg lisinopril, metoprolol, Eliquis 5 mg twice a day, Crestor 20 mg, aspirin 81 mg, allopurinol, omeprazole and sertraline 100 mg twice a day. Patient states he has smoked half pack per day since age 11, still smokes. He states that he had stroke 2 years ago. Review of Systems Patient denies headache. Denies dizziness. ROS unobtainable: due to mental status Past Medical History Past Medical History: Atrial Fibrillation, Heart Failure, COPD, CVA/TIA, Eye Disorder, Hearing Disorder / Deafness, Hyperlipidemia, Hypertension, Skin Disorder, Sleep Apnea/CPAP/BIPAP Additional Past Medical History / Comment(s): CVA approx 2009-speech affected and slight rt. sided weakness,cataracts, bruises easily due to coumadin,does not wear cpap,neuropathy moe. feet History of Any Multi-Drug Resistant Organisms: None Reported Past Surgical History: AICD, Heart Catheterization With Stent Additional Past Surgical History / Comment(s): AICD/Pacemaker, PEG tube placed in 2018 Past Anesthesia/Blood Transfusion Reactions: No Reported Reaction Date of Last Stent Placement:: unk Type of Cardiac Device: AICD Device Placement Date:: 2009 Past Psychological History: Anxiety, Depression, PTSD Additional Psychological History / Comment(s): PTSD 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 war Smoking Status: Unknown if ever smoked Past Alcohol Use History: Daily, Heavy Additional Past Alcohol Use History / Comment(s): states he stopped smoking three months ago Past Drug Use History: None Reported - Past Family History Brother(s) Family Medical History: Deep Vein Thrombosis (DVT) Medications and Allergies Home Medications Medication Instructions Recorded Confirmed Type Aspirin [Adult Low Dose Aspirin EC] 81 mg PO DAILY 09/02/17 10/11/21 History Omeprazole [PriLOSEC] 20 mg PO BID 09/02/17 10/11/21 History Sertraline HCl [Zoloft] 100 mg PO BID 09/02/17 10/11/21 History allopurinoL [Zyloprim] 100 mg PO BID 09/02/17 10/11/21 History Acetaminophen-Codeine 300-30mg 1 tab PO TID PRN 04/01/19 10/11/21 History [Tylenol w/codeine #3] Rosuvastatin Calcium [Crestor] 20 mg PO HS 08/20/19 10/11/21 History Albuterol Sulfate [Albuterol 2 puff INHALATION RT-QID PRN 12/27/20 10/11/21 History Sulfate Hfa] Apixaban [Eliquis] 5 mg PO BID 12/27/20 10/11/21 History Jevity 1.5 Jakob Liquid 2 can PO TID 12/27/20 10/11/21 History Metoprolol Succinate (ER) [Toprol 100 mg PO DAILY 12/27/20 10/11/21 History XL] Spironolactone 25 mg PO DAILY 12/27/20 10/11/21 History lisinopriL [Zestril] 2.5 mg PO DAILY 12/27/20 10/11/21 History Ipratropium-Albuterol Nebulize 3 ml INHALATION RT-QID 02/08/21 10/11/21 History [Duoneb 0.5 mg-3 mg/3 ml Soln] Mag-Ox 420mg 420 mg PO BID 02/08/21 10/11/21 History Potassium Chloride [Klor-Con 10 ER] 10 meq PO DAILY 02/08/21 10/11/21 History Gabapentin [Neurontin] 600 mg PO TID 07/20/21 10/11/21 History Furosemide [Lasix] 40 mg PO DAILY #30 07/23/21 10/11/21 Rx Thiamine [Vitamin B-1] 100 mg PO DAILY #30 tab 07/23/21 10/11/21 Rx acetaZOLAMIDE [Diamox] 125 mg PO BID 30 Days #60 tab 08/22/21 10/11/21 Rx Allergies Allergy/AdvReac Type Severity Reaction Status Date / Time fluticasone Allergy Dyspnea Verified 08/18/21 13:51 [From Wixela Inhub] metolazone [From Zaroxolyn] Allergy Rash/Hives Verified 08/18/21 13:51 salmeterol Allergy Dyspnea Verified 08/18/21 13:51 [From Wixela Inhub] warfarin [From Coumadin] Allergy Unknown Verified 08/18/21 13:51 fluvastatin AdvReac weakness/muscle Verified 08/18/21 13:51 pain simvastatin AdvReac muscle pain Verified 08/18/21 13:51 sulfamethoxazole AdvReac Abdominal Verified 08/18/21 13:51 [From Bactrim] Pain trimethoprim [From Bactrim] AdvReac Abdominal Verified 08/18/21 13:51 Pain Physical Examination - Vital Signs Vital Signs: Vital Signs Temp Pulse Pulse Resp BP BP BP 10/12/21 10:00 70 14 90/58 10/12/21 07:44 97.8 F 72 84/55 10/12/21 07:30 10/12/21 06:22 85/52 10/12/21 05:51 74/54 10/12/21 05:35 97.5 F L 70 16 82/52 10/12/21 04:44 88/52 10/12/21 03:01 77/47 10/12/21 02:35 82/36 10/12/21 02:23 74/48 10/12/21 02:17 97.9 F 70 16 76/44 10/12/21 01:55 97.5 F L 64 16 70/35 79/48 10/12/21 00:52 89/48 10/12/21 00:37 98.4 F 70 16 76/49 10/12/21 00:12 99.9 F H 69 18 92/53 10/11/21 22:15 100.5 F H 69 20 95/58 10/11/21 22:00 100.7 F H 69 18 87/57 10/11/21 21:45 100 F H 75 18 92/46 10/11/21 21:30 99.2 F 78 20 114/65 10/11/21 21:15 99.5 F 71 18 90/48 10/11/21 20:33 102.4 F H 80 20 101/65 Pulse Ox FiO2 10/12/21 10:00 97 10/12/21 07:44 99 10/12/21 07:30 100 2 10/12/21 06:22 10/12/21 05:51 10/12/21 05:35 100 10/12/21 04:44 10/12/21 03:01 10/12/21 02:35 10/12/21 02:23 10/12/21 02:17 99 10/12/21 01:55 96 10/12/21 00:52 10/12/21 00:37 97 10/12/21 00:12 96 10/11/21 22:15 97 10/11/21 22:00 93 L 10/11/21 21:45 10/11/21 21:30 100 10/11/21 21:15 98 10/11/21 20:33 98 Intake and Output 10/11/21 10/12/21 10/12/21 22:59 06:59 14:59 Output Total 0 850 Balance 0 -850 Output: Urine 0 850 Other: # Voids 1 # Bowel Movements 1 Weight 81.647 kg 81.647 kg Patient is an elderly male, in no acute distress. Patient is alert awake. Patient not able to tell the current month or the year. Patient has significant expressive aphasia. He has good comprehension. Patient sometimes speaks phrases like "I can't use words to say it". He said "I try to say his words but I forget". With his limited speech, there is no dysarthria. Attention, concentration is intact and fund of knowledge is limited. Patient not able to name any object, even simple objects like pen, ey eglasses or the thumb. He can repeat certain sentences like "down the hill and over the road", whereas he was not able to repeat "we heard them speak on the radio last night". Patient able to point to the door on his right side, but difficulty pointing window on the left. On cranial examination, pupils are equal, round and reacting to light, visual tse are full on confrontation, with no neglect on double simultaneous stimulation. His extraocular muscles are intact with no nystagmus. Patient has right facial weakness, which is chronic. His tongue protrudes to the midline. Palatal elevation and sensation normal, hearing is moderately decreased and shoulder shrug normal, facial sensation normal. Shoulder shrug normal. On muscle strength testing, there is no pronator drift and the strength is normal in arms and legs distally and proximally. Deep tendon reflexes are 1+ all over and plantars are flat bilaterally. Sensory to touch is equal with no neglect on double simultaneous stimulation. Cerebellar function showed no ataxia for [id number] testing on either side. Tone and bulk of muscles normal. Patient has mild myoclonic jerks noted of outstretched hands. Gait deferred. On general examination, there is no carotid bruit or murmur, S1-S2 audible. Abdomen is soft nontender. No organomegaly, bowel sounds present. Chest is clear. Peripheral pulses are present. No edema. Results - Laboratory Findings CBC and BMP: 10/11/21 20:51 10/11/21 20:51 Abnormal Lab Findings: Abnormal Labs 10/11/21 10/11/21 10/11/21 20:51 20:51 21:09 WBC 12.0 H MCV 100.1 H MCHC 30.1 L RDW 17.7 H Plt Count 108 L Neutrophils # 11.0 H Lymphocytes # 0.3 L BUN 50 H Creatinine 1.67 H Glucose 119 H POC Glucose (mg/dL) 136 H Urine Protein Urine Blood 10/12/21 10/12/21 03:02 06:33 WBC MCV MCHC RDW Plt Count Neutrophils # Lymphocytes # BUN Creatinine Glucose POC Glucose (mg/dL) 124 H Urine Protein 1+ H Urine Blood Trace H Assessment and Plan Assessment: * Altered mental status, possible toxic metabolic encephalopathy. Patient has developed dehydration, mild renal insufficiency, which may have resulted in s hyun effects from his medication. Patient currently on high-dose gabapentin 600 mg 3 times a day, and the dosing is quite high for his GFR. Patient's examination is at baseline, with no new focality. * Atrial fibrillation, on long-term antiplatelet medication with Eliquis * Acute on chronic renal insufficiency. Plan: * CTA of the neck showed bilateral carotid bifurcation predominate calcified plaque with at least 50% stenosis. No evidence of dissection of the cervical internal carotid arteries or vertebral arteries. CTA of the head showed no aneurysm. * Gabapentin has been on hold. We will resume it at lower dose 300 mg 3 times a day. * Repeat basic metabolic panel, to assess for renal functions. * Resume Eliquis. Discussed with patient's nurse, to touch base with primary physician to resume medication. * EEG was performed, which revealed background slowing of mild to moderate degree, consistent with encephalopathy. No epileptiform activity was seen. No indication for antiepileptic medication. * Neurologically clear, if cleared from medical standpoint. Thank you for the consult.
[2021-10-12] MEDS: GABAPENTIN 300 MG CAP PO SCH ×2 (16:36→20:32)
[2021-10-12 16:53] LABS: African American GFR (CKD) 41 (>60 ml/min/1.73 sqM); Anion Gap 3 mmol/L; Blood Urea Nitrogen 50 mg/dL (9-20); Calcium 8.3 mg/dL (8.4-10.2); Carbon Dioxide 28 mmol/L (22-30); Chloride 108 mmol/L (98-107); Glucose 104 mg/dL (74-99); Non-African American GFR(CKD) 35 (>60 ml/min/1.73 sqM); Potassium 4.8 mmol/L (3.5-5.1); Sodium 139 mmol/L (137-145)
--- NOTE | 2021-10-12 18:10 | EEG ---
ELECTROENCEPHALOGRAM REPORT DATE OF SERVICE: 10/12/2021 PREAMBLE: This is a 71-year-old male who came with altered mental status. Patient has history of a stroke in the past with residual expressive aphasia. This study is performed to rule out any epileptiform activity. EEG FINDINGS: This is a 21-channel digital EEG recorded with video component, utilizing 10/20 international system with referential and bipolar montages. Background consists of moderately well-developed and -regulated mixed frequencies of 6 to 7 hertz theta intermixed with some low-amplitude delta activity seen in bihemispheric region. Background does not seem to be reactive to eye opening or closing. The patient is snoring during most of the study. Each snoring/body jerk is associated with some movement artifact. No epileptiform activity was seen in the entire study. Photic driving response was not seen. No focal or generalized epileptiform activity was seen. IMPRESSION: This is an abnormal EEG due to background slowing of moderate degree. This is suggestive of generalized cerebral dysfunction as can be seen with toxic metabolic encephalopathy or due to diffuse structural brain abnormality. Clinical correlation recommended. No epileptiform activity was seen. MMODL / IJN: [id number] /
--- NOTE | 2021-10-12 19:22 | P.HPIM ---
History of Present Illness H&P Date: 10/12/21 Chief Complaint: Altered mentation Patient is a 71-year-old male with PMH of atrial fibrillation, congestive heart failure, COPD, history of CVA with right-sided residual weakness and expressive aphasia, dyslipidemia, hypertension and sleep apnea presents the ED for altered mentation. Due to his clinical condition, majority of information was obtained from charting documentation. Apparently, patient was confused approximately 4 hours prior to presentation. Patient's has a blood pressure of 93/61 with pulse of 70. He is currently on 2 L nasal cannula to maintain O2 saturation greater than 92%. He has a documented temperature 102.4 Fahrenheit on admission. CBC shows leukocytosis of 12 and MCV of 100.1 with platelet count 108. Coagulation panel negative. VBG within normal limits. CMP shows BUN of 50 and creatinine 1.67. COVID-19 negative. Influenza negative. RSV negative. Chest x-ray shows right-sided airspace opacities. Brain CT shows no acute process, encephalomalacia of the left temporal lobe. CTA head and neck showed bilateral carotid stenosis of 50%, scattered right-sided lung opacities with a few areas of central cavitations. Patient is admitted for altered mentation and treatment of pneumonia. Unable to obtain review of systems due to clinical condition. General: [non toxic], [no distress], [appears at stated age] Derm: [warm], [dry] Head: [atraumatic], [normocephalic], [symmetric] Eyes: [EOMI], [no lid lag], [anicteric sclera] Mouth: [no lip lesion], [mucus membranes moist] Cardiovascular: [S1S2 reg], [no murmur] Lungs: [Decrased breath sounds bilateral], [no rhonchi, no rales] , [no accessory muscle use] Abdominal: [soft], [ nontender to palpation], [no guarding], [no appreciable organomegaly] Ext: [no gross muscle atrophy], [no edema], [no contractures] Neuro: [Unable to do neurological exam due to clinical condition], [Residual R sided weakness with expressive aphasia] Assessment and plan Toxic metabolic encephalopathy Acute hypoxic respiratory failure possible related to aspiration pneumonia Acute kidney injury on chronic kidney disease Chronic conditions: Systolic CHF, atrial fibrillation, COPD not in acute exacerbation, history of CVA, dyslipidemia, hypertension Patient's altered mentation is likely multifactorial. CT head negative for acute finding. He is hypoxic with pneumonia seen on chest x-ray. He is also on sedative medication including Gabapentin. EEG is negative. Neurology cleared the patient from a medical standpoint. Patient will be started on Zosyn for concerns of aspiration PNA. He does not meet sepsis criteria. CXR will be repeated tomorrow morning. Pulmonology will be consulted for further management of this patient. He'll be given DuoNeb scheduled. Telemetry monitoring will be ordered. Swallow evaluation is ordered. Patient has been hydrated overnight and BMP will be repeated tomorrow morning. Restart aspirin and Lipitor for history of CVA. Restart eloquence frantic regulation with regard to history of atrial fibrillation. Restart lisinopril, Aldactone and metoprolol for history of hypertension and systolic CHF. Restart Protonix for history of GERD. DVT prophylaxis: [Eliquis] Anticipated discharge: [2-3 days] Anticipated discharge place: [Home] A total of [45] minutes was spent on the care of this complex patient more than 50% of the time was spent in counseling and care coordination. Will need to discuss with family regarding CODE STATUS. Patient will be placed FULL CODE for now. 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 sided weakness,cataracts, bruises easily due to coumadin,does not wear cpap,neuropathy moe. feet History of Any Multi-Drug Resistant Organisms: None Reported Past Surgical History: AICD, Heart Catheterization With Stent Additional Past Surgical History / Comment(s): AICD/Pacemaker, PEG tube placed in 2018 Past Anesthesia/Blood Transfusion Reactions: No Reported Reaction Date of Last Stent Placement:: unk Type of Cardiac Device: AICD Device Placement Date:: 2009 Past Psychological History: Anxiety, Depression, PTSD Additional Psychological History / Comment(s): PTSD 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 war Smoking Status: Unknown if ever smoked Past Alcohol Use History: Daily, Heavy Additional Past Alcohol Use History / Comment(s): states he stopped smoking three months ago Past Drug Use History: None Reported - Past Family History Brother(s) Family Medical History: Deep Vein Thrombosis (DVT) Medications and Allergies Home Medications Medication Instructions Recorded Confirmed Type Aspirin [Adult Low Dose Aspirin EC] 81 mg PO DAILY 09/02/17 10/11/21 History Omeprazole [PriLOSEC] 20 mg PO BID 09/02/17 10/11/21 History Sertraline HCl [Zoloft] 100 mg PO BID 09/02/17 10/11/21 History allopurinoL [Zyloprim] 100 mg PO BID 09/02/17 10/11/21 History Acetaminophen-Codeine 300-30mg 1 tab PO TID PRN 04/01/19 10/11/21 History [Tylenol w/codeine #3] Rosuvastatin Calcium [Crestor] 20 mg PO HS 08/20/19 10/11/21 History Albuterol Sulfate [Albuterol 2 puff INHALATION RT-QID PRN 12/27/20 10/11/21 History Sulfate Hfa] Apixaban [Eliquis] 5 mg PO BID 12/27/20 10/11/21 History Jevity 1.5 Jakob Liquid 2 can PO TID 12/27/20 10/11/21 History Metoprolol Succinate (ER) [Toprol 100 mg PO DAILY 12/27/20 10/11/21 History XL] Spironolactone 25 mg PO DAILY 12/27/20 10/11/21 History lisinopriL [Zestril] 2.5 mg PO DAILY 12/27/20 10/11/21 History Ipratropium-Albuterol Nebulize 3 ml INHALATION RT-QID 02/08/21 10/11/21 History [Duoneb 0.5 mg-3 mg/3 ml Soln] Mag-Ox 420mg 420 mg PO BID 02/08/21 10/11/21 History Potassium Chloride [Klor-Con 10 ER] 10 meq PO DAILY 02/08/21 10/11/21 History Gabapentin [Neurontin] 600 mg PO TID 07/20/21 10/11/21 History Furosemide [Lasix] 40 mg PO DAILY #30 07/23/21 10/11/21 Rx Thiamine [Vitamin B-1] 100 mg PO DAILY #30 tab 07/23/21 10/11/21 Rx acetaZOLAMIDE [Diamox] 125 mg PO BID 30 Days #60 tab 08/22/21 10/11/21 Rx Allergies Allergy/AdvReac Type Severity Reaction Status Date / Time fluticasone Allergy Dyspnea Verified 08/18/21 13:51 [From Wixela Inhub] metolazone [From Zaroxolyn] Allergy Rash/Hives Verified 08/18/21 13:51 salmeterol Allergy Dyspnea Verified 08/18/21 13:51 [From Wixela Inhub] warfarin [From Coumadin] Allergy Unknown Verified 08/18/21 13:51 fluvastatin AdvReac weakness/muscle Verified 08/18/21 13:51 pain simvastatin AdvReac muscle pain Verified 08/18/21 13:51 sulfamethoxazole AdvReac Abdominal Verified 08/18/21 13:51 [From Bactrim] Pain trimethoprim [From Bactrim] AdvReac Abdominal Verified 08/18/21 13:51 Pain Physical Exam Vitals: Vital Signs Temp Pulse Pulse Resp BP BP BP 10/12/21 16:00 70 93/61 10/12/21 14:00 98.5 F 72 91/60 90/57 10/12/21 12:00 71 12 84/55 10/12/21 10:00 70 14 90/58 10/12/21 07:44 97.8 F 72 84/55 10/12/21 07:30 10/12/21 06:22 85/52 10/12/21 05:51 74/54 10/12/21 05:35 97.5 F L 70 16 82/52 10/12/21 04:44 88/52 10/12/21 03:01 77/47 10/12/21 02:35 82/36 10/12/21 02:23 74/48 10/12/21 02:17 97.9 F 70 16 76/44 10/12/21 01:55 97.5 F L 64 16 70/35 79/48 10/12/21 00:52 89/48 10/12/21 00:37 98.4 F 70 16 76/49 10/12/21 00:12 99.9 F H 69 18 92/53 10/11/21 22:15 100.5 F H 69 20 95/58 10/11/21 22:00 100.7 F H 69 18 87/57 10/11/21 21:45 100 F H 75 18 92/46 10/11/21 21:30 99.2 F 78 20 114/65 10/11/21 21:15 99.5 F 71 18 90/48 10/11/21 20:33 102.4 F H 80 20 101/65 Pulse Ox FiO2 10/12/21 16:00 97 10/12/21 14:00 98 10/12/21 12:00 100 10/12/21 10:00 97 10/12/21 07:44 99 10/12/21 07:30 100 2 10/12/21 06:22 10/12/21 05:51 10/12/21 05:35 100 10/12/21 04:44 10/12/21 03:01 10/12/21 02:35 10/12/21 02:23 10/12/21 02:17 99 10/12/21 01:55 96 10/12/21 00:52 10/12/21 00:37 97 10/12/21 00:12 96 10/11/21 22:15 97 10/11/21 22:00 93 L 10/11/21 21:45 10/11/21 21:30 100 10/11/21 21:15 98 10/11/21 20:33 98 Intake and Output 10/12/21 10/12/21 10/12/21 06:59 14:59 22:59 Intake Total 1150 Output Total 0 850 Balance 0 -850 1150 Intake: IV 1150 0.9 1150 Output: Urine 0 850 Other: # Voids 1 1 # Bowel Movements 1 Weight 81.647 kg Results CBC & Chem 7: 10/11/21 20:51 10/12/21 14:54 Labs: Abnormal Lab Results - Last 24 Hours (Table) 10/11/21 10/11/21 10/11/21 Range/Units 20:51 20:51 21:09 WBC 12.0 H (3.8-10.6) k/uL MCV 100.1 H (80.0-100.0) fL MCHC 30.1 L (31.0-37.0) g/dL RDW 17.7 H (11.5-15.5) % Plt Count 108 L (150-450) k/uL Neutrophils # 11.0 H (1.3-7.7) k/uL Lymphocytes # 0.3 L (1.0-4.8) k/uL Chloride (98-107) mmol/L BUN 50 H (9-20) mg/dL Creatinine 1.67 H (0.66-1.25) mg/dL Glucose 119 H (74-99) mg/dL POC Glucose (mg/dL) 136 H (70-110) mg/dL Calcium (8.4-10.2) mg/dL Urine Protein (Negative) Urine Blood (Negative) 10/12/21 10/12/21 10/12/21 Range/Units 03:02 06:33 14:54 WBC (3.8-10.6) k/uL MCV (80.0-100.0) fL MCHC (31.0-37.0) g/dL RDW (11.5-15.5) % Plt Count (150-450) k/uL Neutrophils # (1.3-7.7) k/uL Lymphocytes # (1.0-4.8) k/uL Chloride 108 H (98-107) mmol/L BUN 50 H (9-20) mg/dL Creatinine 1.85 H (0.66-1.25) mg/dL Glucose 104 H (74-99) mg/dL POC Glucose (mg/dL) 124 H (70-110) mg/dL Calcium 8.3 L (8.4-10.2) mg/dL Urine Protein 1+ H (Negative) Urine Blood Trace H (Negative) Thrombosis Risk Factor Assmnt - Choose All That Apply Any of the Below Risk Factors Present?: Yes Each Factor Represents 1 point: Abnormal pulmonary function (COPD), Heart failure (<1month) Other Risk Factors: Yes Each Risk Factor Represents 2 Points: Age 61-74 years Thrombosis Risk Factor Assessment Total Risk Factor Score: 4 Thrombosis Risk Factor Assessment Level: Moderate Risk
[2021-10-12] MEDS: IPRATROPIUM-ALBUTEROL 3 ML NEB INHALATION SCH (19:35)
[2021-10-12] MEDS: APIXABAN 5 MG TAB PO SCH (20:32)
[2021-10-12] MEDS: SERTRALINE 100 MG TAB PO SCH (20:32)
[2021-10-12] MEDS: ATORVASTATIN 40 MG TAB PO SCH (20:32)
[2021-10-12] MEDS: allopurinoL 100 MG TAB PO SCH (20:32)
[2021-10-12] MEDS: acetaZOLAMIDE 250 MG TAB PO SCH (20:33)
[2021-10-12] MEDS ORDERED: GABAPENTIN 300 MG CAP PO SCH (22:00)
[2021-10-13] MEDS: PIPERACILLIN-TAZOBACTAM 3.375 GM in SODIUM CHLORIDE 0.9% 100 ML IVPB SCH ×4 (00:05→23:43)
--- NOTE | 2021-10-13 08:00 | P.CONS ---
History of Present Illness - Reason for Consult Consult date: 10/12/21 Pneumonia Requesting physician: Christian Woodard - Chief Complaint Weakness and mental status changes x one day - History of Present Illness Patient is a 71-year-old male with a past medical history significant for CVA affecting his speech and did have a chronic right facial droop was brought into the ER last night for evaluation of mental status changes, on pre sentation to the hospital patient did have a fever of 102.4 F patient did have white count of 12,000 with a left shift did have elevated BUN/creatinine liver enzymes are normal urine has been negative influenza and COVID PCR was negative patient did have a chest x-ray right-sided airspace disease suggestive of pneumonia patient was admitted to hospital started on Zosyn infectious disease was consulted for further management of antibiotic therapy, most information has been obtained from review the chart talking nursing staff as the patient is currently speech sleepy lethargic and did not answer any question no vomiting or diarrhea was reported by the nursing staff Review of Systems Positive points has been mentioned in HPI complete review could not be obtained because of his underlying mental status Past Medical History Past Medical History: Atrial Fibrillation, Heart Failure, COPD, CVA/TIA, Eye Disorder, Hearing Disorder / Deafness, Hyperlipidemia, Hypertension, Skin Disorder, Sleep Apnea/CPAP/BIPAP Additional Past Medical History / Comment(s): CVA approx 2009-speech affected and slight rt. sided weakness,cataracts, bruises easily due to coumadin,does not wear cpap,neuropathy moe. feet History of Any Multi-Drug Resistant Organisms: None Reported Past Surgical History: AICD, Heart Catheterization With Stent Additional Past Surgical History / Comment(s): AICD/Pacemaker, PEG tube placed in [address] Anglin in 2019 Past Anesthesia/Blood Transfusion Reactions: No Reported Reaction Date of Last Stent Placement:: unk Type of Cardiac Device: AICD Device Placement Date:: 2009 Past Psychological History: Anxiety, Depression, PTSD Smoking Status: Former smoker Past Drug Use History: None Reported - Past Family History Brother(s) Family Medical History: Deep Vein Thrombosis (DVT) Medications and Allergies Home Medications Medication Instructions Recorded Confirmed Type Aspirin [Adult Low Dose Aspirin EC] 81 mg PO DAILY 09/02/17 10/11/21 History Omeprazole [PriLOSEC] 20 mg PO BID 09/02/17 10/11/21 History Sertraline HCl [Zoloft] 100 mg PO BID 09/02/17 10/11/21 History allopurinoL [Zyloprim] 100 mg PO BID 09/02/17 10/11/21 History Acetaminophen-Codeine 300-30mg 1 tab PO TID PRN 04/01/19 10/11/21 History [Tylenol w/codeine #3] Rosuvastatin Calcium [Crestor] 20 mg PO HS 08/20/19 10/11/21 History Albuterol Sulfate [Albuterol 2 puff INHALATION RT-QID PRN 12/27/20 10/11/21 History Sulfate Hfa] Apixaban [Eliquis] 5 mg PO BID 12/27/20 10/11/21 History Jevity 1.5 Jakob Liquid 2 can PO TID 12/27/20 10/11/21 History Metoprolol Succinate (ER) [Toprol 100 mg PO DAILY 12/27/20 10/11/21 History XL] Spironolactone 25 mg PO DAILY 12/27/20 10/11/21 History lisinopriL [Zestril] 2.5 mg PO DAILY 12/27/20 10/11/21 History Ipratropium-Albuterol Nebulize 3 ml INHALATION RT-QID 02/08/21 10/11/21 History [Duoneb 0.5 mg-3 mg/3 ml Soln] Mag-Ox 420mg 420 mg PO BID 02/08/21 10/11/21 History Potassium Chloride [Klor-Con 10 ER] 10 meq PO DAILY 02/08/21 10/11/21 History Gabapentin [Neurontin] 600 mg PO TID 07/20/21 10/11/21 History Furosemide [Lasix] 40 mg PO DAILY #30 07/23/21 10/11/21 Rx Thiamine [Vitamin B-1] 100 mg PO DAILY #30 tab 07/23/21 10/11/21 Rx acetaZOLAMIDE [Diamox] 125 mg PO BID 30 Days #60 tab 08/22/21 10/11/21 Rx Allergies Allergy/AdvReac Type Severity Reaction Status Date / Time fluticasone Allergy Dyspnea Verified 08/18/21 13:51 [From Wixela Inhub] metolazone [From Zaroxolyn] Allergy Rash/Hives Verified 08/18/21 13:51 salmeterol Allergy Dyspnea Verified 08/18/21 13:51 [From Wixela Inhub] warfarin [From Coumadin] Allergy Unknown Verified 08/18/21 13:51 fluvastatin AdvReac weakness/muscle Verified 08/18/21 13:51 pain simvastatin AdvReac muscle pain Verified 08/18/21 13:51 sulfamethoxazole AdvReac Abdominal Verified 08/18/21 13:51 [From Bactrim] Pain trimethoprim [From Bactrim] AdvReac Abdominal Verified 08/18/21 13:51 Pain Physical Exam Vitals: Vital Signs Temp Pulse Pulse Resp BP BP BP 10/12/21 07:44 97.8 F 72 84/55 10/12/21 07:30 10/12/21 06:22 85/52 10/12/21 05:51 74/54 10/12/21 05:35 97.5 F L 70 16 82/52 10/12/21 04:44 88/52 10/12/21 03:01 77/47 10/12/21 02:35 82/36 10/12/21 02:23 74/48 10/12/21 02:17 97.9 F 70 16 76/44 10/12/21 01:55 97.5 F L 64 16 70/35 79/48 10/12/21 00:52 89/48 10/12/21 00:37 98.4 F 70 16 76/49 10/12/21 00:12 99.9 F H 69 18 92/53 10/11/21 22:15 100.5 F H 69 20 95/58 10/11/21 22:00 100.7 F H 69 18 87/57 10/11/21 21:45 100 F H 75 18 92/46 10/11/21 21:30 99.2 F 78 20 114/65 10/11/21 21:15 99.5 F 71 18 90/48 10/11/21 20:33 102.4 F H 80 20 101/65 Pulse Ox FiO2 10/12/21 07:44 99 10/12/21 07:30 100 2 10/12/21 06:22 10/12/21 05:51 10/12/21 05:35 100 10/12/21 04:44 10/12/21 03:01 10/12/21 02:35 10/12/21 02:23 10/12/21 02:17 99 10/12/21 01:55 96 10/12/21 00:52 10/12/21 00:37 97 10/12/21 00:12 96 10/11/21 22:15 97 10/11/21 22:00 93 L 10/11/21 21:45 10/11/21 21:30 100 10/11/21 21:15 98 10/11/21 20:33 98 Intake and Output 10/11/21 10/12/21 10/12/21 22:59 06:59 14:59 Output Total 0 850 Balance 0 -850 Output: Urine 0 850 Other: Weight 81.647 kg GENERAL DESCRIPTION: Elderly male lying in bed, no distress. No tachypnea or accessory muscle of respiration use. HEENT: Shows Pallor , no scleral icterus. Oral mucous membrane is dry. No pharyngeal erythema or thrush NECK: Trachea central, no thyromegaly. LUNGS: Unlabored breathing. Decreased breath sound the bases. No wheeze or crackle. HEART: S1, S2, regular rate and rhythm. No loud murmur ABDOMEN: Soft, no tenderness , guarding or rigidity, no organomegaly EXTREMITIES: No edema of feet. SKIN: No rash, no masses palpable. NEUROLOGICAL: The patient is sleepy lethargic and orientation could not be determined Results CBC & Chem 7: 10/13/21 05:51 10/13/21 05:51 Labs: Abnormal Lab Results - Last 24 Hours (Table) 10/11/21 10/11/21 10/11/21 Range/Units 20:51 20:51 21:09 WBC 12.0 H (3.8-10.6) k/uL MCV 100.1 H (80.0-100.0) fL MCHC 30.1 L (31.0-37.0) g/dL RDW 17.7 H (11.5-15.5) % Plt Count 108 L (150-450) k/uL Neutrophils # 11.0 H (1.3-7.7) k/uL Lymphocytes # 0.3 L (1.0-4.8) k/uL BUN 50 H (9-20) mg/dL Creatinine 1.67 H (0.66-1.25) mg/dL Glucose 119 H (74-99) mg/dL POC Glucose (mg/dL) 136 H (70-110) mg/dL Urine Protein (Negative) Urine Blood (Negative) 10/12/21 10/12/21 Range/Units 03:02 06:33 WBC (3.8-10.6) k/uL MCV (80.0-100.0) fL MCHC (31.0-37.0) g/dL RDW (11.5-15.5) % Plt Count (150-450) k/uL Neutrophils # (1.3-7.7) k/uL Lymphocytes # (1.0-4.8) k/uL BUN (9-20) mg/dL Creatinine (0.66-1.25) mg/dL Glucose (74-99) mg/dL POC Glucose (mg/dL) 124 H (70-110) mg/dL Urine Protein 1+ H (Negative) Urine Blood Trace H (Negative) Assessment and Plan (1) Aspiration pneumonia Current Visit: No Status: Acute Code(s): J69.0 - PNEUMONITIS DUE TO INH ALATION OF FOOD AND VOMIT SNOMED Code(s): 579177808 Plan: 1patient presented to hospital with sepsis in this we did have fever elevated white count source likely right-sided pneumonia in this patient with a history of CVA concerning likely for an aspiration pneumonia and possible gram-negative. 2we will try to obtain a sputum for gram stain and culture. 3continue with Zosyn 3.375 g every 8 hours. 4aspiration precaution. We will follow on clinical condition and cultures to further adjust medication if needed Thank you for this consultation will follow this patient along with you Time with Patient: Greater than 30
[2021-10-13] MEDS: SODIUM CHLORIDE 0.9% 1,000 ML IV SCH ×2 (08:39→23:23)
[2021-10-13] MEDS: METOPROLOL SUCCINATE (ER) 100 MG TAB.ER.24H PO SCH (08:40)
[2021-10-13] MEDS: IPRATROPIUM-ALBUTEROL 3 ML NEB INHALATION SCH ×4 (08:43→20:28)
[2021-10-13] MEDS: ASPIRIN 81 MG PO SCH (08:47)
[2021-10-13] MEDS: SPIRONOLACTONE 25 MG TAB PO SCH (08:48)
[2021-10-13] MEDS: allopurinoL 100 MG TAB PO SCH ×2 (08:48→23:23)
[2021-10-13] MEDS: APIXABAN 5 MG TAB PO SCH ×2 (08:48→23:23)
[2021-10-13] MEDS: SERTRALINE 100 MG TAB PO SCH ×2 (08:48→23:23)
[2021-10-13] MEDS: FUROSEMIDE 40 MG TAB PO SCH (08:48)
[2021-10-13] MEDS: THIAMINE 100 MG TAB PO SCH (08:49)
[2021-10-13] MEDS: PANTOPRAZOLE 40 MG TABLET PO SCH (08:49)
[2021-10-13] MEDS: acetaZOLAMIDE 250 MG TAB PO SCH ×2 (08:50→23:22)
[2021-10-13] MEDS: GABAPENTIN 300 MG CAP PO SCH ×3 (09:02→23:23)
[2021-10-13 09:07] LABS: African American GFR (CKD) 48.8 (60.0-200.0); Anion Gap 8.9 mmol/L (10.00-18.00); BUN/Creat Ratio 28.38 Ratio (12.00-20.00); Blood Urea Nitrogen 45.4 mg/dL (9.0-27.0); Calcium 8.7 mg/dL (8.7-10.3); Carbon Dioxide 23.1 mmol/L (20.0-27.5); Non-African American GFR(CKD) 42.1 (60.0-200.0); Potassium 4.6 mmol/L (3.5-5.5)
[2021-10-13 09:10] LABS: HGB 11.4 g/dL (13.0-17.0); MCH 29.2 pg (27.0-32.0); MCHC 29.2 g/dL (32.0-37.0); Mean Platelet Volume 14.2 fL (9.5-12.2); NRBC Per 100 WBC 0 /100 WBCS (0.0-0.0); Platelet Count 81 X 10*3/uL (140-440); RDW 18.6 % (11.5-14.5); WBC 7.38 X 10*3/uL (4.50-10.00)
--- NOTE | 2021-10-13 09:58 | XR ---
EXAMINATION TYPE: XR chest 1V portable DATE OF EXAM: 10/13/2021 9:47 AM COMPARISON: Chest radiographs from 10/11/2021 TECHNIQUE: XR chest 1V portable Portable AP radiograph of the chest. CLINICAL INDICATION:Male, 71 years old with history of Follow up pneumonia; FINDINGS: Lungs/Pleura: Similar right midlung opacities given differences in technique. No new opacities, no pl eural effusion or pneumothorax. Pulmonary vascularity: Unremarkable. Heart/mediastinum: Cardiomediastinal silhouette is enlarged and stable. Two lead cardiac conduction d evice overlying the left hemithorax with lead tips projecting over the right ventricle and right atri um. Musculoskeletal: No acute osseous pathology. IMPRESSION: 1. Similar right lung airspace opacities. 2. Cardiomegaly
[2021-10-13] MEDS: POTASSIUM CHLORIDE ER 10 MEQ TAB.ER.PRT PO SCH (10:07)
--- NOTE | 2021-10-13 11:44 | P.CNPUL ---
History of Present Illness Consult date: 10/13/21 Requesting physician: Jacqueline Batres Reason for consult: dyspnea, cough, COPD, hypoxemia, pneumonia, abnormal CXR/CT Chief complaint: Shortness of breath. History of present illness: Pulmonary consult dated 10/13/2021. A 71-year-old male seen in the emergency room, on October 11, for mental status changes. The patient was apparently brought in by EMS. Most of the history, as noted by the ER physician, was obtained by EMS. The patient apparently was found to be a very unreliable historian, and even now, he is very confused. He thought he was 89 years of age. Not 71. More recently, we are consulted for possible pneumonia. The patient apparently has a history of long-standing tobac co use. The patient has a history of atrial fibrillation, CHF, COPD, CVA, deafness, hyperlipidemia, hypertension, sleep apnea, neuropathy, AICD/pacemaker implantation, and previous PEG tube placement, removed in 2019. Chest x-ray on admission, and the more recent chest x-ray, shows changes of COPD, and right lower lobe infiltrate. White count 7.3 8.4, hematocrit 39, platelet count is 81,000. Sodium 141, potassium 4.6, chloride 109, CO2 23, anion gap 9, BUN 45, and creatinine 1.6. Pro-calcitonin level was elevated at 14.3. Testing for influenza, coronavirus, and respiratory syncytial virus, are all negative. Review of Systems REVIEW OF SYSTEMS: CONSTITUTIONAL: Weakness. NEUROLOGIC: Mental status changes. HEENT: [ Negative.] CARDIAC: [Negative.] PULMONARY: Shortness of breath, cough GI: [Negative.] : [Negative.] RHEUMATOLOGIC: [ Negative.] IMMUNOLOGIC: [ Negative.] ENDOCRINE: [Negative. ] DERMATOLOGIC: [Negative.] Past Medical History Past Medical History: Atrial Fibrillation, Heart Failure, COPD, CVA/TIA, Eye Disorder, Hearing Disorder / Deafness, Hyperlipidemia, Hypertension, Skin Disorder, Sleep Apnea/CPAP/BIPAP Additional Past Medical History / Comment(s): CVA approx 2009-speech affected and slight rt. sided weakness,cataracts, bruises easily due to coumadin,does not wear cpap,neuropathy moe. feet History of Any Multi-Drug Resistant Organisms: None Reported Past Surgical History: AICD, Heart Catheterization With Stent Additional Past Surgical History / Comment(s): AICD/Pacemaker, PEG tube placed in [address] Anglin in 2019 Past Anesthesia/Blood Transfusion Reactions: No Reported Reaction Date of Last Stent Placement:: unk Type of Cardiac Device: AICD Device Placement Date:: 2009 Past Psychological History: Anxiety, Depression, PTSD Smoking Status: Former smoker Past Drug Use History: None Reported - Past Family History Brother(s) Family Medical History: Deep Vein Thrombosis (DVT) Medications and Allergies Home Medications Medication Instructions Recorded Confirmed Type Aspirin [Adult Low Dose Aspirin EC] 81 mg PO DAILY 09/02/17 10/11/21 History Omeprazole [PriLOSEC] 20 mg PO BID 09/02/17 10/11/21 History Sertraline HCl [Zoloft] 100 mg PO BID 09/02/17 10/11/21 History allopurinoL [Zyloprim] 100 mg PO BID 09/02/17 10/11/21 History Acetaminophen-Codeine 300-30mg 1 tab PO TID PRN 04/01/19 10/11/21 History [Tylenol w/codeine #3] Rosuvastatin Calcium [Crestor] 20 mg PO HS 08/20/19 10/11/21 History Albuterol Sulfate [Albuterol 2 puff INHALATION RT-QID PRN 12/27/20 10/11/21 History Sulfate Hfa] Apixaban [Eliquis] 5 mg PO BID 12/27/20 10/11/21 History Jevity 1.5 Jakob Liquid 2 can PO TID 12/27/20 10/11/21 History Metoprolol Succinate (ER) [Toprol 100 mg PO DAILY 12/27/20 10/11/21 History XL] Spironolactone 25 mg PO DAILY 12/27/20 10/11/21 History lisinopriL [Zestril] 2.5 mg PO DAILY 12/27/20 10/11/21 History Ipratropium-Albuterol Nebulize 3 ml INHALATION RT-QID 02/08/21 10/11/21 History [Duoneb 0.5 mg-3 mg/3 ml Soln] Mag-Ox 420mg 420 mg PO BID 02/08/21 10/11/21 History Potassium Chloride [Klor-Con 10 ER] 10 meq PO DAILY 02/08/21 10/11/21 History Gabapentin [Neurontin] 600 mg PO TID 07/20/21 10/11/21 History Furosemide [Lasix] 40 mg PO DAILY #30 07/23/21 10/11/21 Rx Thiamine [Vitamin B-1] 100 mg PO DAILY #30 tab 07/23/21 10/11/21 Rx acetaZOLAMIDE [Diamox] 125 mg PO BID 30 Days #60 tab 08/22/21 10/11/21 Rx Allergies Allergy/AdvReac Type Severity Reaction Status Date / Time fluticasone Allergy Dyspnea Verified 08/18/21 13:51 [From Wixela Inhub] metolazone [From Zaroxolyn] Allergy Rash/Hives Verified 08/18/21 13:51 salmeterol Allergy Dyspnea Verified 08/18/21 13:51 [From Wixela Inhub] warfarin [From Coumadin] Allergy Unknown Verified 08/18/21 13:51 fluvastatin AdvReac weakness/muscle Verified 08/18/21 13:51 pain simvastatin AdvReac muscle pain Verified 08/18/21 13:51 sulfamethoxazole AdvReac Abdominal Verified 08/18/21 13:51 [From Bactrim] Pain trimethoprim [From Bactrim] AdvReac Abdominal Verified 08/18/21 13:51 Pain Physical Exam Osteopathic Statement: *. No significant issues noted on an osteopathic structural exam other than those noted in the History and Physical/Consult. Vitals: Vital Signs Temp Pulse Pulse Resp BP BP Pulse Ox 10/13/21 08:51 71 10/13/21 08:44 68 97 10/13/21 08:00 98.1 F 68 104/68 97 10/13/21 02:00 98.4 F 70 16 103/65 98 10/13/21 00:09 104/68 10/12/21 20:33 72 16 10/12/21 20:30 92/66 10/12/21 19:56 98.3 F 72 16 98/66 99 10/12/21 19:41 75 10/12/21 19:35 70 10/12/21 16:00 70 93/61 97 10/12/21 14:00 98.5 F 72 91/60 90/57 98 10/12/21 12:00 71 12 84/55 100 FiO2 10/13/21 08:51 10/13/21 08:44 2 10/13/21 08:00 10/13/21 02:00 10/13/21 00:09 10/12/21 20:33 10/12/21 20:30 10/12/21 19:56 10/12/21 19:41 10/12/21 19:35 10/12/21 16:00 10/12/21 14:00 10/12/21 12:00 Intake and Output 10/12/21 10/13/21 10/13/21 22:59 06:59 14:59 Intake Total 1150 700 Output Total 800 Balance 1150 -100 Intake: IV 1150 0.9 1150 Intake, IV Titration 700 Amount Piperacillin-Tazobactam 3 100 .375 gm In Sodium Chloride 0.9% 100 ml @ 25 mls/hr IVPB Q8H MO Rx#: [id number] Sodium Chloride 0.9% 1, 600 000 ml @ 50 mls/hr IV . Q20H MO Rx#:[id number] Output: Urine 800 Other: # Voids 1 No acute distress, confused. No respiratory distress. 2 L saturation is 97%. HEENT examination is grossly unremarkable. Neck supple. Full range of motion. No adenopathy thyromegaly or neck vein distention. Cardiovascular examination reveals regular rhythm rate. S1-S2 normal. No S3 or S4. No discernible murmur noted. Heart sounds are distant. Heart rate is 71 bpm Lungs reveal scattered bilateral rhonchi. Few expiratory wheezes. No crackles. Breath sounds diminished Abdomen soft bowel sounds are heard. No masses or tenderness. Extremities are intact. No cyanosis clubbing or edema. Skin is without rash or lesion. Neurologic examination is brief but nonfocal. Results - Laboratory Findings CBC and BMP: 10/13/21 05:51 10/13/21 05:51 PT/INR, D-dimer PT 11.4 sec (9.0-12.0) 10/11/21 20:51 INR 1.1 (<1.2) 10/11/21 20:51 Abnormal lab findings: Abnormal Labs 10/11/21 10/11/21 10/11/21 20:51 20:51 21:09 WBC 12.0 H RBC Hgb Hct MCV 100.1 H MCHC 30.1 L RDW 17.7 H Plt Count 108 L Plt Count Comment MPV Neutrophils # 11.0 H Lymphocytes # 0.3 L Chloride Anion Gap BUN 50 H Creatinine 1.67 H Est GFR (CKD-EPI)AfAm Est GFR (CKD-EPI)NonAf BUN/Creatinine Ratio Glucose 119 H POC Glucose (mg/dL) 136 H Calcium Procalcitonin Urine Protein Urine Blood 10/12/21 10/12/21 10/12/21 03:02 06:33 14:54 WBC RBC Hgb Hct MCV MCHC RDW Plt Count Plt Count Comment MPV Neutrophils # Lymphocytes # Chloride 108 H Anion Gap BUN 50 H Creatinine 1.85 H Est GFR (CKD-EPI)AfAm Est GFR (CKD-EPI)NonAf BUN/Creatinine Ratio Glucose 104 H POC Glucose (mg/dL) 124 H Calcium 8.3 L Procalcitonin Urine Protein 1+ H Urine Blood Trace H 10/12/21 10/13/21 10/13/21 14:54 05:51 05:51 WBC RBC 3.90 L Hgb 11.4 L Hct 39.0 L MCV 100.0 H MCHC 29.2 L RDW 18.6 H Plt Count 81 L Plt Count Comment DECREASED A MPV 14.2 H Neutrophils # Lymphocytes # Chloride Anion Gap 8.90 L BUN 45.4 H Creatinine 1.6 H Est GFR (CKD-EPI)AfAm 48.8 L Est GFR (CKD-EPI)NonAf 42.1 L BUN/Creatinine Ratio 28.38 H Glucose POC Glucose (mg/dL) Calcium Procalcitonin 14.30 H Urine Protein Urine Blood - Diagnostic Findings Chest x-ray: image reviewed Assessment and Plan Assessment: Acute on chronic mental status changes, currently being evaluated by the primary service. Mental status changes could relate to pneumonia, right lower lobe. Pneumonia, right lower lobe. COPD, relatively stable at this time. History of heavy tobacco use. History of AICD/pacemaker insertion. Prior history of PEG tube placement, and subsequent removal, 2019. History of atrial fibrillation. History of CHF. Prior history of CVA. Hyperlipidemia. Hypertension. History of obstructive sleep apnea syndrome. Plan: Plan dated 10/13/2021. The patient is seen and examined. Unfortunately, the patient's very confused, and cannot add much to the history. He does have a prior history of heavy tobacco use. His COPD is not particularly active at this time. Chest x-ray shows a right lower lobe pneumonia. Pro-calcitonin level was quite elevated. The patient is currently on updrafts with DuoNeb, and Zosyn. We will continue to follow make recommendations where appropriate. Prognosis is guarded. Time with Patient: Greater than 30
--- NOTE | 2021-10-13 12:21 | CA ---
Transthoracic Echo Report Name: Peter Apodaca Age: 71 Gender: M : 1950 Exam Date: 10/13/2021 08:08 Exam Location: [facility] Ht (in): 71 Wt (lb): 180 Ordering Physician: Jacqueline Batres MD Attending/Referring Phys: Chemical Engineering Technician Aubrie Hernández RDCS Procedure CPT: Indications: sob Cardiac Hx: Pacemaker Technical Quality: Good Contrast 1: Total Dose (mL): Contrast 2: Total Dose (mL): MEASUREMENTS (Male / Female) Normal Values 2D ECHO LV Diastolic Diameter PLAX 6.0 cm 4.2 - 5.9 / 3.9 - 5.3 cm LV Systolic Diameter PLAX 5.9 cm IVS Diastolic Thickness 1.0 cm 0.6 - 1.0 / 0.6 - 0.9 cm LVPW Diastolic Thickness 1.1 cm 0.6 - 1.0 / 0.6 - 0.9 cm LV Relative Wall Thickness 0.3 RV Internal Dim ED PLAX 4.1 cm LVOT Diameter 2.3 cm LA Volume 107.7 cm??? 18 - 58 / 22 - 52 cm??? M-MODE Aortic Root Diameter MM 3.8 cm LA Systolic Diameter MM 4.2 cm LA Ao Ratio MM 1.1 MV E Point Septal Separation 2.1 cm AV Cusp Separation MM 1.3 cm DOPPLER AV Peak Velocity 113.7 cm/s AV Peak Gradient 5.2 mmHg AI Peak Velocity 188.2 cm/s AI Peak Gradient 14.2 mmHg AI Pressure Half Time 825.9 ms MV Area PHT 4.8 cm??? Mitral E Point Velocity 89.5 cm/s Mitral A Point Velocity 34.5 cm/s Mitral E to A Ratio 2.6 MV Deceleration Time 159.4 ms MV E' Velocity 4.9 cm/s Mitral E to MV E' Ratio 18.2 TR Peak Velocity 318.2 cm/s TR Peak Gradient 40.5 mmHg Right Ventricular Systolic Press 42.5 mmHg FINDINGS Left Ventricle Severely reduced global left ventricular systolic function. Mildly increased left ventricular diastolic diameter. Left ventricular ejection fraction is estimated at less then 20 %. Severe hypokinesis. Grade 3 diastolic dysfunction. Right Ventricle Severe right ventricular dilatation. Mild PHTN. A wire is noted in the right ventricle Right Atrium Normal right atrial size. Left Atrium Severely increased left atrial volume. Mildly increased left atrial area. Mitral Valve Mitral valve thickened. Mild mitral regurgitation. Aortic Valve .trace aortic regurgitation. Diffuse thickening of the aortic valve cusps with reduced excursion. Tricuspid Valve Mild tricuspid regurgitation.structurally normal tricuspid valve. Pulmonic Valve Structurally normal pulmonic valve. Pericardium No pericardial effusion. Aorta Normal size aortic root and proximal ascending aorta. CONCLUSIONS 1. Dilated left ventricle with severe global hypokinesis 2. A wire is noted in the right ventricle 3. Mild mitral and tricuspid regurgitation Previewed by: Dr. Andreina Echeverria MD (Electronically Signed) Final Date: 13 October 2021 12:21
--- NOTE | 2021-10-13 14:03 | P.PN ---
Subjective Progress Note Date: 10/13/21 Principal diagnosis: Pneumonia Patient was seen and examined. No acute events overnight. Currently on 2 L nasal cannula. Patient continues to be confused, alert and oriented 1. He is eating 100% of his meals without any apparent difficulties. Objective - Vital Signs Vital signs: Vital Signs Temp 98.2 F 10/13/21 13:35 Pulse 68 10/13/21 13:35 Resp 16 10/13/21 09:10 BP 112/75 10/13/21 13:35 Pulse Ox 100 10/13/21 13:35 FiO2 2 10/13/21 08:44 Intake & Output 10/12/21 10/13/21 10/13/21 18:59 06:59 18:59 Intake Total 1150 700 Output Total 828 133 8670 Balance 300 -100 -1000 Weight 81.647 kg Intake: IV 1150 0.9 1150 Intake, IV Titration 700 Amount Piperacillin-Tazobactam 3 100 .375 gm In Sodium Chloride 0.9% 100 ml @ 25 mls/hr IVPB Q8H [facility] Rx#: [id number] Sodium Chloride 0.9% 1, 600 000 ml @ 50 mls/hr IV . Q20H [facility] Rx#:[id number] Output: Urine 693 836 5986 Other: # Voids 1 # Bowel Movements 1 - Exam General: [non toxic], [no distress], [appears at stated age] Derm: [warm], [dry] Head: [atraumatic], [normocephalic], [symmetric] Eyes: [EOMI], [no lid lag], [anicteric sclera] Mouth: [no lip lesion], [mucus membranes moist] Cardiovascular: [S1S2 reg], [no murmur] Lungs: [Decrased breath sounds bilateral], [+ rhonchi bilateral bases, no rales] , [no accessory muscle use] Abdominal: [soft], [ nontender to palpation], [no guarding], [no appreciable organomegaly] Ext: [no gross muscle atrophy], [no edema], [no contractures] Neuro: [Unable to do neurological exam due to clinical condition], [Expressive aphasia] - Labs CBC & Chem 7: 10/13/21 05:51 10/13/21 05:51 Labs: Abnormal Lab Results - Last 24 Hours (Table) 10/12/21 10/12/21 10/13/21 Range/Units 14:54 14:54 05:51 RBC 3.90 L (4.40-5.60) X 10*6/uL Hgb 11.4 L (13.0-17.0) g/dL Hct 39.0 L (39.6-50.0) % MCV 100.0 H (80.0-97.0) fL MCHC 29.2 L (32.0-37.0) g/dL RDW 18.6 H (11.5-14.5) % Plt Count 81 L (140-440) X 10*3/uL Plt Count Comment DECREASED A MPV 14.2 H (9.5-12.2) fL Chloride 108 H (98-107) mmol/L Anion Gap (10.00-18.00) mmol/L BUN 50 H (9-20) mg/dL Creatinine 1.85 H (0.66-1.25) mg/dL Est GFR (CKD-EPI)AfAm (60.0-200.0) Est GFR (CKD-EPI)NonAf (60.0-200.0) BUN/Creatinine Ratio (12.00-20.00) Ratio Glucose 104 H (74-99) mg/dL Calcium 8.3 L (8.4-10.2) mg/dL Procalcitonin 14.30 H (0.02-0.09) ng/mL 10/13/21 Range/Units 05:51 RBC (4.40-5.60) X 10*6/uL Hgb (13.0-17.0) g/dL Hct (39.6-50.0) % MCV (80.0-97.0) fL MCHC (32.0-37.0) g/dL RDW (11.5-14.5) % Plt Count (140-440) X 10*3/uL Plt Count Comment MPV (9.5-12.2) fL Chloride (98-107) mmol/L Anion Gap 8.90 L (10.00-18.00) mmol/L BUN 45.4 H (9-20) mg/dL Creatinine 1.6 H (0.66-1.25) mg/dL Est GFR (CKD-EPI)AfAm 48.8 L (60.0-200.0) Est GFR (CKD-EPI)NonAf 42.1 L (60.0-200.0) BUN/Creatinine Ratio 28.38 H (12.00-20.00) Ratio Glucose (74-99) mg/dL Calcium (8.4-10.2) mg/dL Procalcitonin (0.02-0.09) ng/mL Microbiology - Last 24 Hours (Table) 10/11/21 21:22 Blood Culture - Preliminary Blood No Growth after 24 hours 10/11/21 21:22 Blood Culture - Preliminary Blood No Growth after 24 hours Assessment and Plan Assessment: Toxic metabolic encephalopathy Acute hypoxic respiratory failure possible related to aspiration pneumonia Acute kidney injury on chronic kidney disease Macrocytic anemia Chronic conditions: Systolic CHF, atrial fibrillation, COPD not in acute exacerbation, history of CVA, dyslipidemia, hypertension Patient's altered mentation is likely multifactorial. CT head negative for acute finding. He is hypoxic with pneumonia seen on chest x-ray. He is also on sedative medication including Gabapentin, which has been lowered by Neurology. EEG is negative. Neurology cleared the patient from a medical standpoint. Patient will be started on Zosyn for concerns of aspiration PNA. He does not meet sepsis criteria. CXR shows persistent infiltrate. Procalcitonin elevated. Pulmonology will be consulted for further management of this patient. He'll be given DuoNeb scheduled. Telemetry monitoring will be ordered. Swallow evaluation is ordered. Patient has been hydrated overnight and BMP will be repeated tomorrow morning. Obtain TSH, Folate, B12. Restart aspirin and Lipitor for history of CVA. Restart eloquence frantic regulation with regard to history of atrial fibrillation. Restart lisinopril, Aldactone and metoprolol for history of hypertension and systolic CHF. Restart Protonix for history of GERD. DVT prophylaxis: [Eliquis] Anticipated discharge: [2-3 days] Anticipated discharge place: [Home] A total of [45] minutes was spent on the care of this complex patient more than 50% of the time was spent in counseling and care coordination. Patient will be placed FULL CODE for now.
--- NOTE | 2021-10-13 22:26 | P.PN ---
Subjective Progress Note Date: 10/13/21 Patient was seen for a follow-up. Patient is laying comfortably in the bed. Patient has much improved. Please refer to examination below. Patient denies any headache or dizziness. Patient speaking more clear sentences like "I have difficulty explaining to you, to people". Telemetric monitoring showing V paced rhythm at 69. Objective - Vital Signs Vital signs: Vital Signs Temp 97.9 F 10/13/21 19:38 Pulse 72 10/13/21 20:39 Resp 20 10/13/21 19:38 BP 107/65 10/13/21 19:38 Pulse Ox 99 10/13/21 19:38 FiO2 2 10/13/21 08:44 Intake & Output 10/13/21 10/13/21 10/14/21 06:59 18:59 06:59 Intake Total 700 420 Output Total 800 1800 Balance -100 -1380 Intake: Intake, IV Titration 700 100 Amount Piperacillin-Tazobactam 3 100 100 .375 gm In Sodium Chloride 0.9% 100 ml @ 25 mls/hr IVPB Q8H [facility] Rx#: [id number] Sodium Chloride 0.9% 1, 600 000 ml @ 50 mls/hr IV . Q20H [facility] Rx#:[id number] Oral 320 Output: Urine 800 1800 - Exam Patient's level of consciousness is normal. He is fully alert and awake. Patient has expressive aphasia. Patient speaking more clear sentences like "I have difficulty explaining to you, to people". Patient able to name objects like "pen, glasses". Patient able to repeat sentences much better. Patient knows his date of . Still has paraphasic errors. Difficulty with expression. Patient has right facial droop. Muscle strength is normal. No ataxia. - Labs CBC & Chem 7: 10/13/21 05:51 10/13/21 05:51 Labs: Abnormal Lab Results - Last 24 Hours (Table) 10/12/21 10/13/21 10/13/21 Range/Units 14:54 05:51 05:51 RBC 3.90 L (4.40-5.60) X 10*6/uL Hgb 11.4 L (13.0-17.0) g/dL Hct 39.0 L (39.6-50.0) % MCV 100.0 H (80.0-97.0) fL MCHC 29.2 L (32.0-37.0) g/dL RDW 18.6 H (11.5-14.5) % Plt Count 81 L (140-440) X 10*3/uL Plt Count Comment DECREASED A MPV 14.2 H (9.5-12.2) fL Anion Gap 8.90 L (10.00-18.00) mmol/L BUN 45.4 H (9.0-27.0) mg/dL Creatinine 1.6 H (0.6-1.5) mg/dL Est GFR (CKD-EPI)AfAm 48.8 L (60.0-200.0) Est GFR (CKD-EPI)NonAf 42.1 L (60.0-200.0) BUN/Creatinine Ratio 28.38 H (12.00-20.00) Ratio Procalcitonin 14.30 H (0.02-0.09) ng/mL Microbiology - Last 24 Hours (Table) 10/11/21 21:22 Blood Culture - Preliminary Blood No Growth after 24 hours 10/11/21 21:22 Blood Culture - Preliminary Blood No Growth after 24 hours Assessment and Plan Assessment: * Altered mental status, possible toxic metabolic encephalopathy. Patient has acute UTI, dehydration, mild renal insufficiency, which may have resulted in side effects from his medication. Patient currently on high-dose gabapentin 600 mg 3 times a day, and the dosing is quite high for his GFR. Patient's examination is at baseline, with no new focality. * Acute UTI. Patient's temperature on arrival was 102.4. * Atrial fibrillation, on long-term antiplatelet medication with Eliquis * Acute on chronic renal insufficiency. Plan: * CTA of the neck showed bilateral carotid bifurcation predominate calcified plaque with at least 50% stenosis. No evidence of dissection of the cervical internal carotid arteries or vertebral arteries. CTA of the head showed no aneurysm. * Continue Gabapentin at lower dose of 300 mg 3 times a day (previously on 600 mg 3 times a day). * Patient's renal functions has improved with BUN 45 creatinine 1.6. * Continue Eliquis 5 mg twice a day. * EEG revealed background slowing of mild to moderate degree, consistent with encephalopathy. No epileptiform activity was seen. No indication for antiepileptic medication. * Neurologically clear, if cleared from medical standpoint. Please call neurology if you have any further concerns. We will sign off.
[2021-10-13] MEDS: ATORVASTATIN 40 MG TAB PO SCH (23:23)
--- NOTE | 2021-10-13 23:58 | P.PN ---
Subjective Progress Note Date: 10/13/21 Principal diagnosis: Pneumonia Patient is a 71-year-old male with a past medical history significant for CVA patient was brought into the ER for evaluation of mental status changes noticed to have fever chest x-ray with right-sided airspace disease concerning for pneumonia possible aspiration. On today's evaluation that is 10/13/2021, the patient denies having any fever or any chills, the patient is more awake and alert today he is breathing comfortably and is oxygen patient did have a cough with occasional sputum no nausea no vomiting no abdominal pain no diarrhea Objective - Vital Signs Vital signs: Vital Signs Temp 98.1 F 10/13/21 08:00 Pulse 71 10/13/21 08:51 Resp 16 10/13/21 09:10 BP 104/68 10/13/21 08:00 Pulse Ox 97 10/13/21 08:44 FiO2 2 10/13/21 08:44 Intake & Output 10/12/21 10/13/21 10/13/21 18:59 06:59 18:59 Intake Total 1150 700 Output Total 850 800 Balance 300 -100 Weight 81.647 kg Intake: IV 1150 0.9 1150 Intake, IV Titration 700 Amount Piperacillin-Tazobactam 3 100 .375 gm In Sodium Chloride 0.9% 100 ml @ 25 mls/hr IVPB Q8H [facility] Rx#: [id number] Sodium Chloride 0.9% 1, 600 000 ml @ 50 mls/hr IV . Q20H [facility] Rx#:[id number] Output: Urine 850 800 Other: # Voids 1 # Bowel Movements 1 - Exam GENERAL DESCRIPTION: An elderly male lying in bed in no distress RESPIRATORY SYSTEM: Unlabored breathing , decreased breath sounds at bases HEART: S1 S2 regular rate and rhythm , ABDOMEN: Soft , no tenderness EXTREMITIES: No edema feet - Labs CBC & Chem 7: 10/13/21 05:51 10/13/21 05:51 Labs: Abnormal Lab Results - Last 24 Hours (Table) 10/12/21 10/12/21 10/13/21 Range/Units 14:54 14:54 05:51 RBC 3.90 L (4.40-5.60) X 10*6/uL Hgb 11.4 L (13.0-17.0) g/dL Hct 39.0 L (39.6-50.0) % MCV 100.0 H (80.0-97.0) fL MCHC 29.2 L (32.0-37.0) g/dL RDW 18.6 H (11.5-14.5) % Plt Count 81 L (140-440) X 10*3/uL Plt Count Comment DECREASED A MPV 14.2 H (9.5-12.2) fL Chloride 108 H (98-107) mmol/L Anion Gap (10.00-18.00) mmol/L BUN 50 H (9-20) mg/dL Creatinine 1.85 H (0.66-1.25) mg/dL Est GFR (CKD-EPI)AfAm (60.0-200.0) Est GFR (CKD-EPI)NonAf (60.0-200.0) BUN/Creatinine Ratio (12.00-20.00) Ratio Glucose 104 H (74-99) mg/dL Calcium 8.3 L (8.4-10.2) mg/dL Procalcitonin 14.30 H (0.02-0.09) ng/mL 10/13/21 Range/Units 05:51 RBC (4.40-5.60) X 10*6/uL Hgb (13.0-17.0) g/dL Hct (39.6-50.0) % MCV (80.0-97.0) fL MCHC (32.0-37.0) g/dL RDW (11.5-14.5) % Plt Count (140-440) X 10*3/uL Plt Count Comment MPV (9.5-12.2) fL Chloride (98-107) mmol/L Anion Gap 8.90 L (10.00-18.00) mmol/L BUN 45.4 H (9-20) mg/dL Creatinine 1.6 H (0.66-1.25) mg/dL Est GFR (CKD-EPI)AfAm 48.8 L (60.0-200.0) Est GFR (CKD-EPI)NonAf 42.1 L (60.0-200.0) BUN/Creatinine Ratio 28.38 H (12.00-20.00) Ratio Glucose (74-99) mg/dL Calcium (8.4-10.2) mg/dL Procalcitonin (0.02-0.09) ng/mL Microbiology - Last 24 Hours (Table) 10/11/21 21:22 Blood Culture - Preliminary Blood No Growth after 24 hours 10/11/21 21:22 Blood Culture - Preliminary Blood No Growth after 24 hours Assessment and Plan (1) Aspiration pneumonia Current Visit: No Status: Acute Code(s): J69.0 - PNEUMONITIS DUE TO INHALATION OF FOOD AND VOMIT SNOMED Code(s): 488679781 Plan: 1patient presented to hospital with sepsis in this we did have fever elevated white count source likely right-sided pneumonia in this patient with a history of CVA concerning likely for an aspiration pneumonia and possible gram-negative. 2we will try to obtain a sputum for gram stain and culture. 3patient has shown some clinical improvement and will continue with Zosyn 3.375 g every 8 hours. Time with Patient: Less than 30
[2021-10-14] MEDS: IPRATROPIUM-ALBUTEROL 3 ML NEB INHALATION SCH ×5 (07:43→21:04)
[2021-10-14] MEDS: POTASSIUM CHLORIDE ER 10 MEQ TAB.ER.PRT PO SCH (08:06)
[2021-10-14] MEDS: ASPIRIN 81 MG PO SCH (08:06)
[2021-10-14] MEDS: THIAMINE 100 MG TAB PO SCH (08:07)
[2021-10-14] MEDS: SPIRONOLACTONE 25 MG TAB PO SCH (08:07)
[2021-10-14] MEDS: APIXABAN 5 MG TAB PO SCH ×2 (08:07→22:21)
[2021-10-14] MEDS: SERTRALINE 100 MG TAB PO SCH ×2 (08:07→22:22)
[2021-10-14] MEDS: GABAPENTIN 300 MG CAP PO SCH ×3 (08:07→22:22)
[2021-10-14] MEDS: allopurinoL 100 MG TAB PO SCH ×2 (08:07→22:21)
[2021-10-14] MEDS: FUROSEMIDE 40 MG TAB PO SCH (08:07)
[2021-10-14] MEDS: PANTOPRAZOLE 40 MG TABLET PO SCH (08:07)
[2021-10-14] MEDS: METOPROLOL SUCCINATE (ER) 100 MG TAB.ER.24H PO SCH (08:08)
[2021-10-14] MEDS: acetaZOLAMIDE 250 MG TAB PO SCH ×2 (08:08→22:22)
[2021-10-14] MEDS: PIPERACILLIN-TAZOBACTAM 3.375 GM in SODIUM CHLORIDE 0.9% 100 ML IVPB SCH ×3 (08:33→22:23)
--- NOTE | 2021-10-14 12:23 | P.PN ---
Subjective Progress Note Date: 10/14/21 A 71-year-old male seen in the emergency room, on October 11, for mental status changes. The patient was apparently brought in by EMS. Most of the history, as noted by the ER physician, was obtained by EMS. The patient apparently was found to be a very unreliable historian, and even now, he is very confused. He thought he was 89 years of age. Not 71. More recently, we are consulted for possible pneumonia. The patient apparently has a history of long-standing tobacco use. The patient has a history of atrial fibrillation, CHF, COPD, CVA, deafness, hyperlipidemia, hypertension, sleep apnea, neuropathy, AICD/pacemaker implantation, and previous PEG tube placement, removed in 2019. Chest x-ray on admission, and the more recent chest x-ray, shows changes of COPD, and right lower lobe infiltrate. White count 7.3 8.4, hematocrit 39, platelet count is 81,000. Sodium 141, potassium 4.6, chloride 109, CO2 23, anion gap 9, BUN 45, and creatinine 1.6. Pro-calcitonin level was elevated at 14.3. Testing for influenza, coronavirus, and respiratory syncytial virus, are all negative. The patient is seen today 10/14/2021 in follow-up on the regular medical floor. He is currently resting comfortably in bed. Awake and alert in no acute distress. Maintaining O2 saturations in the 90s on 2 L nasal cannula. He continues with few scattered rhonchi, mild wheezing. Blood cultures are revealing no growth. Vitamin B12 500. Folate 56.8. TSH 2.130. He remains on Zosyn. Continue bronchodilators. Anticoagulated with Eliquis. Oral diuretics. Objective - Vital Signs Vital signs: Vital Signs Temp 98.3 F 10/14/21 08:00 Pulse 68 10/14/21 08:00 Resp 17 10/14/21 08:00 BP 123/68 10/14/21 08:00 Pulse Ox 98 10/14/21 08:00 FiO2 2 10/13/21 08:44 Intake & Output 10/13/21 10/14/21 10/14/21 18:59 06:59 18:59 Intake Total 420 Output Total 1800 1600 Balance -1380 -1600 Intake: Intake, IV Titration 100 Amount Piperacillin-Tazobactam 3 100 .375 gm In Sodium Chloride 0.9% 100 ml @ 25 mls/hr IVPB Q8H [facility] Rx#: [id number] Oral 320 Output: Urine 1800 1600 Other: Voiding Method Urinal # Voids 1 - Exam GENERAL EXAM: Alert, pleasant 70-year-old male patient, on 2 L nasal cannula, comfortable in no apparent distress. HEAD: Normocephalic. EYES: Normal reaction of pupils, equal size. NOSE: Clear with pink turbinates. THROAT: No erythema or exudates. NECK: No masses, no JVD. CHEST: No chest wall deformity. LUNGS: Equal air entry with few scattered rhonchi, mild wheeze. CVS: S1 and S2 normal with no audible murmur, regular rhythm. ABDOMEN: No hepatosplenomegaly, normal bowel sounds, no guarding or rigidity. SPINE: No scoliosis or deformity SKIN: No rashes CENTRAL NERVOUS SYSTEM: No focal deficits, tone is normal in all 4 extremities. EXTREMITIES: There is no peripheral edema. No clubbing, no cyanosis. Peripheral pulses are intact. - Labs CBC & Chem 7: 10/13/21 05:51 10/13/21 05:51 Labs: Microbiology - Last 24 Hours (Table) 10/11/21 21:22 Blood Culture - Preliminary Blood No Growth after 48 hours 10/11/21 21:22 Blood Culture - Preliminary Blood No Growth after 48 hours Assessment and Plan Assessment: Acute on chronic mental status changes, currently being evaluated by the primary service. Mental status changes could relate to pneumonia, right lower lobe. Pro-calcitonin 14.3. Remains on Zosyn. Pneumonia, right lower lobe. COPD, relatively stable at this time. History of heavy tobacco use. History of AICD/pacemaker insertion. Prior history of PEG tube placement, and subsequent removal, 2019. History of atrial fibrillation. History of CHF. Prior history of CVA. Hyperlipidemia. Hypertension. History of obstructive sleep apnea syndrome. Plan: The patient was seen and evaluated More awake and alert today Stable and on 2 L nasal cannula Continue on Zosyn Follow-up chest x-ray in a.m. We will continue to follow I have personally seen and examined the patient, performed the documentation and the assessment and plan as written. Number of minutes spent on the visit: 10.
--- NOTE | 2021-10-14 18:10 | P.PN ---
Subjective Progress Note Date: 10/14/21 Principal diagnosis: Aspiraion Pna and encephalopathy Patient with confusion, encephalopathy treated for aspiration pneumonia Objective - Vital Signs Vital signs: Vital Signs Temp 98.0 F 10/14/21 17:34 Pulse 71 10/14/21 17:34 Resp 18 10/14/21 17:34 BP 100/73 10/14/21 17:34 Pulse Ox 99 10/14/21 17:34 FiO2 2 10/13/21 08:44 Intake & Output 10/13/21 10/14/21 10/14/21 18:59 06:59 18:59 Intake Total 420 Output Total 1800 1600 2200 Balance -1380 -1600 -2200 Intake: Intake, IV Titration 100 Amount Piperacillin-Tazobactam 3 100 .375 gm In Sodium Chloride 0.9% 100 ml @ 25 mls/hr IVPB Q8H [facility] Rx#: [id number] Oral 320 Output: Urine 1800 1600 2200 Other: Voiding Method Urinal # Voids 1 # Bowel Movements 1 - Constitutional General appearance: Present: no acute distress - Respiratory Respiratory: bilateral: diminished - Cardiovascular Rhythm: regular - Gastrointestinal General gastrointestinal: Present: normal bowel sounds - Integumentary Integumentary: Present: normal - Neurologic Neurologic Comment(s): Confused - Labs CBC & Chem 7: 10/13/21 05:51 10/13/21 05:51 Labs: Microbiology - Last 24 Hours (Table) 10/11/21 21:22 Blood Culture - Preliminary Blood No Growth after 48 hours 10/11/21 21:22 Blood Culture - Preliminary Blood No Growth after 48 hours Assessment and Plan (1) Aspiration pneumonia Narrative/Plan: Continue Zosyn, and supplemental oxygen aspiration precaution Current Visit: No Status: Acute Code(s): J69.0 - PNEUMONITIS DUE TO INHALATION OF FOOD AND VOMIT SNOMED Code(s): 423177891 (2) Acute encephalopathy Narrative/Plan: The patient continues to be confused oriented to self appreciate neurology input Current Visit: No Status: Acute Code(s): G93.40 - ENCEPHALOPATHY, UNSPECIFIED SNOMED Code(s): 36872300 (3) CHF (congestive heart failure) Narrative/Plan: Continue to monitor post compensated Current Visit: No Status: Acute Code(s): I50.9 - HEART FAILURE, UNSPECIFIED SNOMED Code(s): 57807138
[2021-10-14] MEDS: SODIUM CHLORIDE 0.9% 1,000 ML IV SCH (22:21)
[2021-10-14] MEDS: ATORVASTATIN 40 MG TAB PO SCH (22:21)
--- NOTE | 2021-10-15 01:29 | P.PN ---
Subjective Progress Note Date: 10/14/21 Principal diagnosis: Pneumonia Patient is a 71-year-old male with a past medical history significant for CVA patient was brought into the ER for evaluation of mental status changes noticed to have fever chest x-ray with right-sided airspace disease concerning for pneumonia possible aspiration. On today's evaluation that is 10/14/2021, the patient remains to be afebrile, the patient is breathing comfortably on nasal cannula oxygen , patient did have a cough with occasional sputum no nausea no vomiting no abdominal pain no diarrhea Objective - Vital Signs Vital signs: Vital Signs Temp 98.3 F 10/14/21 08:00 Pulse 68 10/14/21 08:00 Resp 17 10/14/21 08:00 BP 123/68 10/14/21 08:00 Pulse Ox 98 10/14/21 08:00 FiO2 2 10/13/21 08:44 Intake & Output 10/13/21 10/14/21 10/14/21 18:59 06:59 18:59 Intake Total 420 Output Total 1800 1600 Balance -1380 -1600 Intake: Intake, IV Titration 100 Amount Piperacillin-Tazobactam 3 100 .375 gm In Sodium Chloride 0.9% 100 ml @ 25 mls/hr IVPB Q8H [facility] Rx#: [id number] Oral 320 Output: Urine 1800 1600 Other: Voiding Method Urinal # Voids 1 - Exam GENERAL DESCRIPTION: An elderly male lying in bed in no distress RESPIRATORY SYSTEM: Unlabored breathing , decreased breath sounds at bases HEART: S1 S2 regular rate and rhythm , ABDOMEN: Soft , no tenderness EXTREMITIES: No edema feet - Labs CBC & Chem 7: 10/13/21 05:51 10/13/21 05:51 Labs: Microbiology - Last 24 Hours (Table) 10/11/21 21:22 Blood Culture - Preliminary Blood No Growth after 48 hours 10/11/21 21:22 Blood Culture - Preliminary Blood No Growth after 48 hours Assessment and Plan (1) Aspiration pneumonia Current Visit: No Status: Acute Code(s): J69.0 - PNEUMONITIS DUE TO INHALATION OF FOOD AND VOMIT SNOMED Code(s): 303529552 Plan: 1patient presented to hospital with sepsis in this we did have fever elevated white count source likely right-sided pneumonia in this patient with a history of CVA concerning likely for an aspiration pneumonia and possible gram-negative. 2RN has been instructed again to obtain sputum for gram stain and culture. 3patient has shown clinical improvement and will continue with Zosyn 3.375 g every 8 hours hopefully finishing therapy with oral antibiotics.
[2021-10-15] MEDS: IPRATROPIUM-ALBUTEROL 3 ML NEB INHALATION SCH ×4 (07:49→20:18)
[2021-10-15] MEDS: PIPERACILLIN-TAZOBACTAM 3.375 GM in SODIUM CHLORIDE 0.9% 100 ML IVPB SCH ×3 (07:58→23:40)
[2021-10-15] MEDS: METOPROLOL SUCCINATE (ER) 100 MG TAB.ER.24H PO SCH (07:59)
[2021-10-15] MEDS: acetaZOLAMIDE 250 MG TAB PO SCH ×2 (07:59→20:28)
[2021-10-15] MEDS: FUROSEMIDE 40 MG TAB PO SCH (07:59)
[2021-10-15] MEDS: APIXABAN 5 MG TAB PO SCH ×2 (07:59→20:27)
[2021-10-15] MEDS: THIAMINE 100 MG TAB PO SCH (07:59)
[2021-10-15] MEDS: SERTRALINE 100 MG TAB PO SCH ×2 (07:59→20:27)
[2021-10-15] MEDS: GABAPENTIN 300 MG CAP PO SCH ×3 (07:59→20:27)
[2021-10-15] MEDS: allopurinoL 100 MG TAB PO SCH ×2 (07:59→20:27)
[2021-10-15] MEDS: PANTOPRAZOLE 40 MG TABLET PO SCH (07:59)
[2021-10-15] MEDS: SPIRONOLACTONE 25 MG TAB PO SCH (07:59)
[2021-10-15] MEDS: ASPIRIN 81 MG PO SCH (07:59)
[2021-10-15] MEDS: POTASSIUM CHLORIDE ER 10 MEQ TAB.ER.PRT PO SCH (07:59)
--- NOTE | 2021-10-15 08:07 | XR ---
EXAMINATION TYPE: XR chest 1V portable DATE OF EXAM: 10/15/2021 HISTORY: Shortness of breath. COMPARISON: 10/13/2021 TECHNIQUE: Single view of the chest is submitted. FINDINGS: Demonstrated are scattered senescent parenchymal change. Increasing right lower lobe infiltrate compatible with pneumonia. The heart is stable. Hilar and mediastinal structures are within normal limits. Degenerative changes are seen of the dorsal spine. IMPRESSION: 1. Increasing right lower lobe infiltrate compatible with pneumonia.
[2021-10-15 09:25] LABS: African American GFR (CKD) 52.8 (60.0-200.0); Anion Gap 10.3 mmol/L (10.00-18.00); BUN/Creat Ratio 22.07 Ratio (12.00-20.00); Blood Urea Nitrogen 33.1 mg/dL (9.0-27.0); Calcium 8.8 mg/dL (8.7-10.3); Carbon Dioxide 24.7 mmol/L (20.0-27.5); Non-African American GFR(CKD) 45.5 (60.0-200.0); Potassium 4.3 mmol/L (3.5-5.5)
--- NOTE | 2021-10-15 11:35 | P.PN ---
Subjective Progress Note Date: 10/15/21 A 71-year-old male seen in the emergency room, on October 11, for mental status changes. The patient was apparently brought in by EMS. Most of the history, as noted by the ER physician, was obtained by EMS. The patient apparently was found to be a very unreliable historian, and even now, he is very confused. He thought he was 89 years of age. Not 71. More recently, we are consulted for possible pneumonia. The patient apparently has a history of long-standing tobacco use. The patient has a history of atrial fibrillation, CHF, COPD, CVA, deafness, hyperlipidemia, hypertension, sleep apnea, neuropathy, AICD/pacemaker implantation, and previous PEG tube placement, removed in 2019. Chest x-ray on admission, and the more recent chest x-ray, shows changes of COPD, and right lower lobe infiltrate. White count 7.3 8.4, hematocrit 39, platelet count is 81,000. Sodium 141, potassium 4.6, chloride 109, CO2 23, anion gap 9, BUN 45, and creatinine 1.6. Pro-calcitonin level was elevated at 14.3. Testing for influenza, coronavirus, and respiratory syncytial virus, are all negative. The patient is seen today 10/14/2021 in follow-up on the regular medical floor. He is currently resting comfortably in bed. Awake and alert in no acute distress. Maintaining O2 saturations in the 90s on 2 L nasal cannula. He continues with few scattered rhonchi, mild wheezing. Blood cultures are revealing no growth. Vitamin B12 500. Folate 56.8. TSH 2.130. He remains on Zosyn. Continue bronchodilators. Anticoagulated with Eliquis. Oral diuretics. The patient is seen today 10/15/2021 in follow-up on the regular medical floor. He is awake and alert in no acute distress. Current receiving up in bed. Maintaining good O2 saturations in the 90s on 2 L/m per nasal cannula. Afebrile. Hemodynamically stable. Chest x-ray reveals increasing right lower lobe infiltrate compatible with pneumonia. Blood cultures reveal no growth. Sodium 143. Potassium 4.3. BUN 33. Creatinine 1.5. He is continued on Zosyn. Anticoagulated with Eliquis. Remains on bronchodilators. Objective - Vital Signs Vital signs: Vital Signs Temp 98.3 F 10/15/21 07:06 Pulse 70 07/17/22 07:06 Resp 17 10/15/21 07:06 BP 123/69 10/15/21 07:06 Pulse Ox 97 10/15/21 07:06 FiO2 2 10/13/21 08:44 Intake & Output 10/14/21 10/15/21 10/15/21 18:59 06:59 18:59 Output Total 2200 1000 500 Balance -2200 -1000 -500 Output: Urine 2200 1000 500 Other: Voiding Method Urinal # Voids 2 # Bowel Movements 1 - Exam GENERAL EXAM: Alert, 70-year-old male patient, on 2 L nasal cannula, comfortable in no apparent distress. HEAD: Normocephalic. EYES: Normal reaction of pupils, equal size. NOSE: Clear with pink turbinates. THROAT: No erythema or exudates. NECK: No masses, no JVD. CHEST: No chest wall deformity. LUNGS: Equal air entry with crackles in the right base, mild wheeze. CVS: S1 and S2 normal with no audible murmur, regular rhythm. ABDOMEN: No hepatosplenomegaly, normal bowel sounds, no guarding or rigidity. SPINE: No scoliosis or deformity SKIN: No rashes CENTRAL NERVOUS SYSTEM: No focal deficits, tone is normal in all 4 extremities. EXTREMITIES: There is no peripheral edema. No clubbing, no cyanosis. Peripheral pulses are intact. - Labs CBC & Chem 7: 10/13/21 05:51 10/15/21 05:38 Labs: Abnormal Lab Results - Last 24 Hours (Table) 10/15/21 Range/Units 05:38 BUN 33.1 H (9.0-27.0) mg/dL Est GFR (CKD-EPI)AfAm 52.8 L (60.0-200.0) Est GFR (CKD-EPI)NonAf 45.5 L (60.0-200.0) BUN/Creatinine Ratio 22.07 H (12.00-20.00) Ratio Microbiology - Last 24 Hours (Table) 10/11/21 21:22 Blood Culture - Preliminary Blood No Growth after 72 hours 10/11/21 21:22 Blood Culture - Preliminary Blood No Growth after 72 hours Assessment and Plan Assessment: Acute on chronic mental status changes, currently being evaluated by the primary service. Mental status changes could relate to pneumonia, right lower lobe. Pro-calcitonin 14.3. Remains on Zosyn. Pneumonia, right lower lobe. COPD, relatively stable at this time. History of heavy tobacco use. History of AICD/pacemaker insertion. Prior history of PEG tube placement, and subsequent removal, 2019. History of atrial fibrillation. History of CHF. Prior history of CVA. Hyperlipidemia. Hypertension. History of obstructive sleep apnea syndrome. Plan: The patient was seen and evaluated Chest x-ray, labs and medications reviewed Stable and on 2 L nasal cannula Continue on Zosyn, bronchodilators Follow-up pro-calcitonin We will continue to follow I have personally seen and examined the patient, performed the documentation and the assessment and plan as written. Number of minutes spent on the visit: 10.
[2021-10-15 12:24] LABS: Basophils # (A) 0.01 X 10*3/uL (0.00-0.10); Basophils % (A) 0.2 %; Eosinophils # (A) 0.11 X 10*3/uL (0.04-0.35); Eosinophils % (A) 2.2 %; HCT 37.8 % (39.6-50.0); HGB 11.1 g/dL (13.0-17.0); Immature Grans, Automated 0.2 %; Lymphocytes % (A) 22.4 %; MCH 29.4 pg (27.0-32.0); MCHC 29.4 g/dL (32.0-37.0); MCV 100.3 fL (80.0-97.0); Mean Platelet Volume 13.8 fL (9.5-12.2); Monocytes # (A) 0.36 X 10*3/uL (0.20-1.00); Monocytes % (A) 7.3 %; NRBC Per 100 WBC 0 /100 WBCS (0.0-0.0); Neutrophils # (A) 3.31 X 10*3/uL (1.80-7.70); Neutrophils % (A) 67.7 %; Platelet Count 88 X 10*3/uL (140-440); RBC 3.77 X 10*6/uL (4.40-5.60); RDW 18.5 % (11.5-14.5)
--- NOTE | 2021-10-15 15:55 | P.PN ---
Subjective Progress Note Date: 10/15/21 Principal diagnosis: Aspiraion Pna with hypoxia and encephalopathy Patient with confusion, encephalopathy treated for aspiration pneumonia. Pulmonary following repeat CXR shows right sided pneumonia Objective - Vital Signs Vital signs: Vital Signs Temp 98.3 F 10/15/21 13:34 Pulse 69 10/15/21 13:34 Resp 17 10/15/21 13:34 BP 110/70 10/15/21 13:34 Pulse Ox 96 10/15/21 13:34 FiO2 2 10/13/21 08:44 Intake & Output 10/14/21 10/15/21 10/15/21 18:59 06:59 18:59 Output Total 2200 1000 500 Balance -2200 -1000 -500 Output: Urine 2200 1000 500 Other: Voiding Method Urinal # Voids 2 # Bowel Movements 1 - Constitutional General appearance: Present: no acute distress - Respiratory Respiratory: right: rhonchi - Cardiovascular Rhythm: regular - Gastrointestinal General gastrointestinal: Present: normal bowel sounds - Integumentary Integumentary: Present: normal - Psychiatric Psychiatric Comment(s): Oriented to self, confused - Labs CBC & Chem 7: 10/15/21 05:38 10/15/21 05:38 Labs: Abnormal Lab Results - Last 24 Hours (Table) 10/15/21 10/15/21 Range/Units 05:38 05:38 RBC 3.77 L (4.40-5.60) X 10*6/uL Hgb 11.1 L (13.0-17.0) g/dL Hct 37.8 L (39.6-50.0) % MCV 100.3 H (80.0-97.0) fL MCHC 29.4 L (32.0-37.0) g/dL RDW 18.5 H (11.5-14.5) % Plt Count 88 L (140-440) X 10*3/uL MPV 13.8 H (9.5-12.2) fL BUN 33.1 H (9.0-27.0) mg/dL Est GFR (CKD-EPI)AfAm 52.8 L (60.0-200.0) Est GFR (CKD-EPI)NonAf 45.5 L (60.0-200.0) BUN/Creatinine Ratio 22.07 H (12.00-20.00) Ratio Microbiology - Last 24 Hours (Table) 10/11/21 21:22 Blood Culture - Preliminary Blood No Growth after 72 hours 10/11/21 21:22 Blood Culture - Preliminary Blood No Growth after 72 hours - Imaging and Cardiology Chest x-ray: report reviewed Assessment and Plan (1) Aspiration pneumonia Narrative/Plan: The patient acute hypoxic respiratory failure secondary to aspiration pneumonia. He did not meet sepsis criteria but had an elevated pro-calcitonin. He was started on Zosyn, supplemental oxygen on aspiration precautions. Pulmonary has been following a repeat chest extra ray today still shows persistent infiltrate. He is currently receiving duo nebs as needed Current Visit: No Status: Acute Code(s): J69.0 - PNEUMONITIS DUE TO INHALATION OF FOOD AND VOMIT SNOMED Code(s): 613757040 (2) Acute encephalopathy Narrative/Plan: Toxic metabolic encephalopathy likely multifactorial, negative CT of the head. He was on gabapentin but the dose was lowered by neurology. He had a negative EEG he was seen by neurology and cleared from their perspective whenever he is medically stable. The patient continues to be confused oriented to self Current Visit: No Status: Acute Code(s): G93.40 - ENCEPHALOPATHY, UNSPECI FIED SNOMED Code(s): 53101914 (3) CHF (congestive heart failure) Narrative/Plan: Appears compensated Current Visit: No Status: Acute Code(s): I50.9 - HEART FAILURE, UNSPECIFIED SNOMED Code(s): 63258360 Plan: Continue IV Zosyn, DVT prophylaxis with Eliquis, Home O2 evaluation in am , home 24-48 hrs
[2021-10-15] MEDS: SODIUM CHLORIDE 0.9% 1,000 ML IV SCH (20:26)
[2021-10-15] MEDS: ATORVASTATIN 40 MG TAB PO SCH (20:27)
--- NOTE | 2021-10-16 08:04 | P.PN ---
Subjective Progress Note Date: 10/15/21 Principal diagnosis: Pneumonia Patient is a 71-year-old male with a past medical history significant for CVA patient was brought into the ER for evaluation of mental status changes noticed to have fever chest x-ray with right-sided airspace disease concerning for pneumonia possible aspiration. On today's evaluation that is 10/15/2021, the patient continues to be afebrile, the patient is breathing comfortably on 2 L nasal cannula oxygen , patient did have a cough with occasional sputum however no sputum has been collected by the nursing staff, no nausea no vomiting no abdominal pain no diarrhea Objective - Vital Signs Vital signs: Vital Signs Temp 98.3 F 10/15/21 13:34 Pulse 69 10/15/21 13:34 Resp 17 10/15/21 13:34 BP 110/70 10/15/21 13:34 Pulse Ox 96 10/15/21 13:34 FiO2 2 10/13/21 08:44 Intake & Output 10/14/21 10/15/21 10/15/21 18:59 06:59 18:59 Output Total 2200 1000 500 Balance -2200 -1000 -500 Output: Urine 2200 1000 500 Other: Voiding Method Urinal # Voids 2 # Bowel Movements 1 - Exam GENERAL DESCRIPTION: An elderly male lying in bed in no distress RESPIRATORY SYSTEM: Unlabored breathing , decreased breath sounds at bases HEART: S1 S2 regular rate and rhythm , ABDOMEN: Soft , no tenderness EXTREMITIES: No edema feet - Labs CBC & Chem 7: 10/15/21 05:38 10/15/21 05:38 Labs: Abnormal Lab Results - Last 24 Hours (Table) 10/15/21 10/15/21 Range/Units 05:38 05:38 RBC 3.77 L (4.40-5.60) X 10*6/uL Hgb 11.1 L (13.0-17.0) g/dL Hct 37.8 L (39.6-50.0) % MCV 100.3 H (80.0-97.0) fL MCHC 29.4 L (32.0-37.0) g/dL RDW 18.5 H (11.5-14.5) % Plt Count 88 L (140-440) X 10*3/uL MPV 13.8 H (9.5-12.2) fL BUN 33.1 H (9.0-27.0) mg/dL Est GFR (CKD-EPI)AfAm 52.8 L (60.0-200.0) Est GFR (CKD-EPI)NonAf 45.5 L (60.0-200.0) BUN/Creatinine Ratio 22.07 H (12.00-20.00) Ratio Microbiology - Last 24 Hours (Table) 10/11/21 21:22 Blood Culture - Preliminary Blood No Growth after 72 hours 10/11/21 21:22 Blood Culture - Preliminary Blood No Growth after 72 hours Assessment and Plan (1) Aspiration pneumonia Current Visit: No Status: Acute Code(s): J69.0 - PNEUMONITIS DUE TO INHALATION OF FOOD AND VOMIT SNOMED Code(s): 937215014 Plan: 1patient presented to hospital with sepsis in this we did have fever elevated white count source likely right-sided pneumonia in this patient with a history of CVA concerning likely for an aspiration pneumonia and possible gram-negative. 2RN has been instructed again to obtain sputum for gram stain and culture. 3patient chest x-ray did show slight worsening however the patient has shown clinical improvement and will continue with Zosyn 3.375 g every 8 hours hopefully finishing therapy with oral antibiotics. Time with Patient: Less than 30
[2021-10-16 08:42] LABS: African American GFR (CKD) 45.4 (60.0-200.0); Anion Gap 8.1 mmol/L (10.00-18.00); BUN/Creat Ratio 20.35 Ratio (12.00-20.00); Blood Urea Nitrogen 34.6 mg/dL (9.0-27.0); Carbon Dioxide 27.5 mmol/L (20.0-27.5); Non-African American GFR(CKD) 39.1 (60.0-200.0); Potassium 4.6 mmol/L (3.5-5.5)
[2021-10-16] MEDS: PIPERACILLIN-TAZOBACTAM 3.375 GM in SODIUM CHLORIDE 0.9% 100 ML IVPB SCH ×3 (08:44→22:02)
[2021-10-16] MEDS: ASPIRIN 81 MG PO SCH (08:46)
[2021-10-16] MEDS: THIAMINE 100 MG TAB PO SCH (08:46)
[2021-10-16] MEDS: allopurinoL 100 MG TAB PO SCH ×2 (08:46→22:04)
[2021-10-16] MEDS: APIXABAN 5 MG TAB PO SCH ×2 (08:46→22:04)
[2021-10-16] MEDS: SERTRALINE 100 MG TAB PO SCH ×2 (08:46→22:04)
[2021-10-16] MEDS: SPIRONOLACTONE 25 MG TAB PO SCH (08:46)
[2021-10-16] MEDS: POTASSIUM CHLORIDE ER 10 MEQ TAB.ER.PRT PO SCH (08:46)
[2021-10-16] MEDS: FUROSEMIDE 40 MG TAB PO SCH (08:46)
[2021-10-16] MEDS: GABAPENTIN 300 MG CAP PO SCH ×3 (08:46→22:04)
[2021-10-16] MEDS: acetaZOLAMIDE 250 MG TAB PO SCH (08:47)
[2021-10-16] MEDS: PANTOPRAZOLE 40 MG TABLET PO SCH (08:48)
[2021-10-16] MEDS: METOPROLOL SUCCINATE (ER) 100 MG TAB.ER.24H PO SCH (08:48)
[2021-10-16] MEDS: SODIUM CHLORIDE 0.9% 1,000 ML IV SCH (08:49)
[2021-10-16] MEDS: IPRATROPIUM-ALBUTEROL 3 ML NEB INHALATION SCH ×4 (09:04→20:19)
[2021-10-16 09:33] LABS: HCT 39.8 % (39.6-50.0); HGB 11.7 g/dL (13.0-17.0); MCH 29.8 pg (27.0-32.0); MCHC 29.4 g/dL (32.0-37.0); MCV 101.5 fL (80.0-97.0); Mean Platelet Volume 13.4 fL (9.5-12.2); NRBC Per 100 WBC 0 /100 WBCS (0.0-0.0); Platelet Count 91 X 10*3/uL (140-440); RBC 3.92 X 10*6/uL (4.40-5.60); RDW 18.4 % (11.5-14.5); WBC 4.51 X 10*3/uL (4.50-10.00)
--- NOTE | 2021-10-16 14:03 | P.PN ---
Subjective Progress Note Date: 10/16/21 Principal diagnosis: Altered mental status, right lower lobe pneumonia A 71-year-old male seen in the emergency room, on October 11, for mental status changes. The patient was apparently brought in by EMS. Most of the history, as noted by the ER physician, was obtained by EMS. The patient apparently was found to be a very unreliable historian, and even now, he is very confused. He thought he was 89 years of age. Not 71. More recently, we are consulted for possible pneumonia. The patient apparently has a history of long-standing tobacco use. The patient has a history of atrial fibrillation, CHF, COPD, CVA, deafness, hyperlipidemia, hypertension, sleep apnea, neuropathy, AICD/pacemaker implantation, and previous PEG tube placement, removed in 2019. Chest x-ray on admission, and the more recent chest x-ray, shows changes of COPD, and right lower lobe infiltrate. White count 7.3 8.4, hematocrit 39, platelet count is 81,000. Sodium 141, potassium 4.6, chloride 109, CO2 23, anion gap 9, BUN 45, and creatinine 1.6. Pro-calcitonin level was elevated at 14.3. Testing for influenza, coronavirus, and respiratory syncytial virus, are all negative. The patient is seen today 10/14/2021 in follow-up on the regular medical floor. He is currently resting comfortably in bed. Awake and alert in no acute distress. Maintaining O2 saturations in the 90s on 2 L nasal cannula. He continues with few scattered rhonchi, mild wheezing. Blood cultures are revealing no growth. Vitamin B12 500. Folate 56.8. TSH 2.130. He remains on Zosyn. Continue bronchodilators. Anticoagulated with Eliquis. Oral diuretics. The patient is seen today 10/15/2021 in follow-up on the regular medical floor. He is awake and alert in no acute distress. Current receiving up in bed. Maintaining good O2 saturations in the 90s on 2 L/m per nasal cannula. Afebrile. Hemodynamically stable. Chest x-ray reveals increasing right lower lobe infiltrate compatible with pneumonia. Blood cultures reveal no growth. Sodium 143. Potassium 4.3. BUN 33. Creatinine 1.5. He is continued on Zosyn. Anticoagulated with Eliquis. Remains on bronchodilators. On 10/16/2021 patient seen in follow-up on a regular medical floor. He is resting comfortably in bed, denies any acute distress, and 2 L of oxygen and pulse ox of 98%. No fever or chills, hemodynamically stable, his breathing comfortably, is awake and alert, answering questions appropriately. His last chest x-ray from yesterday 10/15/2021 showing increasing right lower lobe infiltrate. Patient remains on Zosyn for empiric antibiotic coverage, remains on nebulized bronchodilators. Blood cultures have shown no growth thus far. Pro-calcitonin level was quite elevated on admission at 14.3. Follow-up pro- calcitonin has been sent and is pending at this time. Objective - Vital Signs Vital signs: Vital Signs Temp 97.7 F 10/16/21 07:51 Pulse 70 10/16/21 09:13 Resp 18 10/16/21 10:22 BP 100/59 10/16/21 07:51 Pulse Ox 98 10/16/21 09:04 FiO2 28 10/16/21 09:04 Intake & Output 10/15/21 10/16/21 10/16/21 18:59 06:59 18:59 Intake Total 240 Output Total 500 790 Balance -500 -790 240 Intake: Oral 240 Output: Urine 500 790 Other: Voiding Method Urinal Urinal # Voids 5 - Exam GENERAL EXAM: Alert, very pleasant, 71-year-old on 2 L of oxygen and pulse ox of 98% comfortable in no apparent distress. HEAD: Normocephalic/atraumatic. EYES: Normal reaction of pupils, equal size. Conjunctiva pink, sclera white. NOSE: Clear with pink turbinates. THROAT: No erythema or exudates. NECK: No masses, no JVD, no thyroid enlargement, no adenopathy. CHEST: No chest wall deformity. Symmetrical expansion. LUNGS: Equal air entry with no crackles, wheeze, rhonchi or dullness. CVS: Regular rate and rhythm, normal S1 and S2, no gallops, no murmurs, no rubs ABDOMEN: Soft, nontender. No hepatosplenomegaly, normal bowel sounds, no guarding or rigidity. EXTREMITIES: No clubbing, no edema, no cyanosis, 2+ pulses and upper and lower extremities. MUSCULOSKELETAL: Muscle strength and tone normal. SPINE: No scoliosis or deformity SKIN: No rashes CENTRAL NERVOUS SYSTEM: Alert and oriented -3. No focal deficits, tone is normal in all 4 extremities. PSYCHIATRIC: Alert and oriented -3. Appropriate affect. Intact judgment and insight. - Labs CBC & Chem 7: 10/16/21 05:35 10/16/21 05:35 Labs: Abnormal Lab Results - Last 24 Hours (Table) 10/16/21 10/16/21 Range/Units 05:35 05:35 RBC 3.92 L (4.40-5.60) X 10*6/uL Hgb 11.7 L (13.0-17.0) g/dL MCV 101.5 H (80.0-97.0) fL MCHC 29.4 L (32.0-37.0) g/dL RDW 18.4 H (11.5-14.5) % Plt Count 91 L (140-440) X 10*3/uL MPV 13.4 H (9.5-12.2) fL Anion Gap 8.10 L (10.00-18.00) mmol/L BUN 34.6 H (9.0-27.0) mg/dL Creatinine 1.7 H (0.6-1.5) mg/dL Est GFR (CKD-EPI)AfAm 45.4 L (60.0-200.0) Est GFR (CKD-EPI)NonAf 39.1 L (60.0-200.0) BUN/Creatinine Ratio 20.35 H (12.00-20.00) Ratio Microbiology - Last 24 Hours (Table) 10/11/21 21:22 Blood Culture - Preliminary Blood No Growth after 96 hours 10/11/21 21:22 Blood Culture - Preliminary Blood No Growth after 96 hours Assessment and Plan Plan: Assessment: Acute on chronic mental status changes, currently being evaluated by the primary service. Mental status changes could relate to pneumonia, right lower lobe. Pro-calcitonin 14.3. Remains on Zosyn. Pneumonia, right lower lobe. COPD, relatively stable at this time. History of heavy tobacco use. History of AICD/pacemaker insertion. Prior history of PEG tube placement, and subsequent removal, 2019. History of atrial fibrillation. History of CHF. Prior history of CVA. Hyperlipidemia. Hypertension. History of obstructive sleep apnea syndrome. Plan: Continue current antibiotic treatment Last chest x-ray has been reviewed showing increasing right lower lobe infiltrate Clinically patient seems to be stable, and improving Awaiting follow-up pro-calcitonin Continue nebulized bronchodilators We'll obtain follow-up chest x-ray in the next 48 hours I have personally seen and examined the patient, performed the documentation and the assessment and plan as written. Number of minutes spent on the visit: [10] I have personally seen and examined the patient and reviewed the documentation. I performed a joint evaluation with the nurse practitioner in this evaluation was done more than 20 minutes. I fully agree with the documentation above and the plan of care.. The patient will be kept on the same antibiotic coverage. Chest x-ray still not clearing up yet the patient's condition clinically is improved. We'll recheck the pro-calcitonin level. Continued IV Zosyn. We'll continue to follow. Time with Patient: Less than 30
--- NOTE | 2021-10-16 14:49 | P.PN ---
Subjective Progress Note Date: 10/16/21 Principal diagnosis: Pneumonia Patient was seen and examined. No acute events overnight. Currently on 2 L nasal cannula. Patient is much more alert and conversing today. He is eating 100% of his meals without any apparent difficulties. CXR showing increased RLL infiltrate. Objective - Vital Signs Vital signs: Vital Signs Temp 98.4 F 10/16/21 14:00 Pulse 71 10/16/21 14:00 Resp 16 10/16/21 14:00 BP 105/66 10/16/21 14:00 Pulse Ox 97 10/16/21 14:00 FiO2 28 10/16/21 09:04 Intake & Output 10/15/21 10/16/21 10/16/21 18:59 06:59 18:59 Intake Total 240 Output Total 500 790 Balance -500 -790 240 Intake: Oral 240 Output: Urine 500 790 Other: Voiding Method Urinal Urinal # Voids 5 - Exam General: [non toxic], [no distress], [appears at stated age] Derm: [warm], [dry] Head: [atraumatic], [normocephalic], [symmetric] Eyes: [EOMI], [no lid lag], [anicteric sclera] Mouth: [no lip lesion], [mucus membranes moist] Cardiovascular: [S1S2 reg], [no murmur] Lungs: [Decrased breath sounds bilateral], [+ rhonchi bilateral bases, no rales] , [no accessory muscle use] Abdominal: [soft], [ nontender to palpation], [no guarding], [no appreciable organomegaly] Ext: [no gross muscle atrophy], [no edema], [no contractures] Neuro: [Unable to do neurological exam due to clinical condition], [Expressive a phasia] - Labs CBC & Chem 7: 10/16/21 05:35 10/16/21 05:35 Labs: Abnormal Lab Results - Last 24 Hours (Table) 10/16/21 10/16/21 Range/Units 05:35 05:35 RBC 3.92 L (4.40-5.60) X 10*6/uL Hgb 11.7 L (13.0-17.0) g/dL MCV 101.5 H (80.0-97.0) fL MCHC 29.4 L (32.0-37.0) g/dL RDW 18.4 H (11.5-14.5) % Plt Count 91 L (140-440) X 10*3/uL MPV 13.4 H (9.5-12.2) fL Anion Gap 8.10 L (10.00-18.00) mmol/L BUN 34.6 H (9.0-27.0) mg/dL Creatinine 1.7 H (0.6-1.5) mg/dL Est GFR (CKD-EPI)AfAm 45.4 L (60.0-200.0) Est GFR (CKD-EPI)NonAf 39.1 L (60.0-200.0) BUN/Creatinine Ratio 20.35 H (12.00-20.00) Ratio Microbiology - Last 24 Hours (Table) 10/11/21 21:22 Blood Culture - Preliminary Blood No Growth after 96 hours 10/11/21 21:22 Blood Culture - Preliminary Blood No Growth after 96 hours Assessment and Plan Assessment: Toxic metabolic encephalopathy Acute hypoxic respiratory failure possible related to aspiration pneumonia Acute kidney injury on chronic kidney disease Macrocytic anemia Chronic conditions: Systolic CHF, atrial fibrillation, COPD not in acute ex acerbation, history of CVA, dyslipidemia, hypertension Patient's altered mentation is likely multifactorial. CT head negative for acute finding. He is hypoxic with pneumonia seen on chest x-ray. He is also on sedative medication including Gabapentin, which has been lowered by Neurology. EEG is negative. Neurology cleared the patient from a medical standpoint. Patient will be continued on Zosyn for concerns of aspiration PNA. He does not meet sepsis criteria. CXR shows persistent infiltrate. Procalcitonin elevated. Pulmonology recommends repeat procalcitonin. Case discussed with Dr. Richardson, possible DC tomorrow after home O2 eval. He'll be given DuoNeb scheduled. Telemetry monitoring will be ordered. Swallow evaluation is ordered. DC IVF. Avoid nephrotoxins. Repeat BMP tomorrow. TSH, B12, Folate within normal limits. Restart aspirin and Lipitor for history of CVA. Restart eloquence frantic regulation with regard to history of atrial fibrillation. Restart lisinopril, Aldactone and metoprolol for history of hypertension and systolic CHF. Restart Protonix for history of GERD. DVT prophylaxis: [Eliquis] Anticipated discharge: [tomorrow] Anticipated discharge place: [Home] A total of [15] minutes was spent on the care of this complex patient more than 50% of the time was spent in counseling and care coordination. Patient will be placed FULL CODE for now.
[2021-10-16] MEDS: ATORVASTATIN 40 MG TAB PO SCH (22:04)
[2021-10-17] MEDS: acetaZOLAMIDE 250 MG TAB PO SCH ×3 (01:47→20:51)
[2021-10-17] MEDS: PIPERACILLIN-TAZOBACTAM 3.375 GM in SODIUM CHLORIDE 0.9% 100 ML IVPB SCH ×3 (08:03→22:14)
[2021-10-17] MEDS: PANTOPRAZOLE 40 MG TABLET PO SCH (08:07)
--- NOTE | 2021-10-17 08:16 | P.PN ---
Subjective Progress Note Date: 10/16/21 Principal diagnosis: Pneumonia Patient is a 71-year-old male with a past medical history significant for CVA patient was brought into the ER for evaluation of mental status changes noticed to have fever chest x-ray with right-sided airspace disease concerning for pneumonia possible aspiration. On today's evaluation that is 10/16/2021, the patient denies any fever or c hills, the patient is breathing comfortably on 2 L nasal cannula oxygen , patient cough is decreased intensity and not bringing up any sputum, patient denies any chest pain no abdominal pain no diarrhea Objective - Vital Signs Vital signs: Vital Signs Temp 97.7 F 10/16/21 07:51 Pulse 70 10/16/21 09:13 Resp 18 10/16/21 10:22 BP 100/59 10/16/21 07:51 Pulse Ox 98 10/16/21 09:04 FiO2 28 10/16/21 09:04 Intake & Output 10/15/21 10/16/21 10/16/21 18:59 06:59 18:59 Intake Total 120 Output Total 500 790 Balance -500 -790 120 Intake: Oral 120 Output: Urine 500 790 Other: Voiding Method Urinal Urinal # Voids 5 - Exam GENERAL DESCRIPTION: An elderly male lying in bed in no distress RESPIRATORY SYSTEM: Unlabored breathing , decreased breath sounds at bases HEART: S1 S2 regular rate and rhythm , ABDOMEN: Soft , no tenderness EXTREMITIES: No edema feet - Labs CBC & Chem 7: 10/16/21 05:35 10/16/21 05:35 Labs: Abnormal Lab Results - Last 24 Hours (Table) 10/16/21 10/16/21 Range/Units 05:35 05:35 RBC 3.92 L (4.40-5.60) X 10*6/uL Hgb 11.7 L (13.0-17.0) g/dL MCV 101.5 H (80.0-97.0) fL MCHC 29.4 L (32.0-37.0) g/dL RDW 18.4 H (11.5-14.5) % Plt Count 91 L (140-440) X 10*3/uL MPV 13.4 H (9.5-12.2) fL Anion Gap 8.10 L (10.00-18.00) mmol/L BUN 34.6 H (9.0-27.0) mg/dL Creatinine 1.7 H (0.6-1.5) mg/dL Est GFR (CKD-EPI)AfAm 45.4 L (60.0-200.0) Est GFR (CKD-EPI)NonAf 39.1 L (60.0-200.0) BUN/Creatinine Ratio 20.35 H (12.00-20.00) Ratio Microbiology - Last 24 Hours (Table) 10/11/21 21:22 Blood Culture - Preliminary Blood No Growth after 96 hours 10/11/21 21:22 Blood Culture - Preliminary Blood No Growth after 96 hours Assessment and Plan (1) Aspiration pneumonia Current Visit: No Status: Acute Code(s): J69.0 - PNEUMONITIS DUE TO INHALATION OF FOOD AND VOMIT SNOMED Code(s): 938450538 Plan: 1patient presented to hospital with sepsis in this we did have fever elevated white count source likely right-sided pneumonia in this patient with a history of CVA concerning likely for an aspiration pneumonia and possible gram-negative. 2 patient has shown clinical improvement and will continue with Zosyn 3.375 g every 8 hours hopefully finishing therapy with oral antibiotics once stable for discharge from pulmonary standpoint. Time with Patient: Less than 30
[2021-10-17] MEDS: IPRATROPIUM-ALBUTEROL 3 ML NEB INHALATION SCH ×4 (09:15→20:51)
[2021-10-17] MEDS: METOPROLOL SUCCINATE (ER) 100 MG TAB.ER.24H PO SCH (10:33)
[2021-10-17] MEDS: SPIRONOLACTONE 25 MG TAB PO SCH (10:33)
[2021-10-17] MEDS: POTASSIUM CHLORIDE ER 10 MEQ TAB.ER.PRT PO SCH (10:33)
[2021-10-17] MEDS: APIXABAN 5 MG TAB PO SCH ×2 (10:34→20:51)
[2021-10-17] MEDS: THIAMINE 100 MG TAB PO SCH (10:34)
[2021-10-17] MEDS: FUROSEMIDE 40 MG TAB PO SCH (10:34)
[2021-10-17] MEDS: SERTRALINE 100 MG TAB PO SCH ×2 (10:34→20:51)
[2021-10-17] MEDS: GABAPENTIN 300 MG CAP PO SCH ×3 (10:35→20:51)
[2021-10-17] MEDS: allopurinoL 100 MG TAB PO SCH ×2 (10:35→20:51)
[2021-10-17] MEDS: ASPIRIN 81 MG PO SCH (10:36)
--- NOTE | 2021-10-17 11:19 | P.PN ---
Subjective Progress Note Date: 10/17/21 Feels okay, in bed, on 2 L of oxygen. Not a very good historian. Remains afebrile. Objective - Vital Signs Vital signs: Vital Signs Temp 97.4 F L 10/17/21 07:28 Pulse 72 10/17/21 09:28 Resp 16 10/17/21 07:28 BP 117/74 10/17/21 07:28 Pulse Ox 98 10/17/21 07:28 FiO2 28 10/16/21 09:04 Intake & Output 10/16/21 10/17/21 10/17/21 18:59 06:59 18:59 Intake Total 360 Output Total 1000 720 Balance -640 -720 Intake: Oral 360 Output: Urine 1000 720 Other: Voiding Method Urinal Urinal - Exam General: [non toxic], [no distress], [appears at stated age] Derm: [warm], [dry] Head: [atraumatic], [normocephalic] Eyes: [EOMI], [no lid lag], Mouth: [no lip lesion], [mucus membranes moist] Cardiovascular: [S1S2 reg], [no murmur] Lungs: Decreased breath sounds, no wheezing Abdominal: [soft], [ nontender to palpation], [no guarding], [no appreciable organomegaly] Ext: [no gross muscle atrophy], [no edema], [no contractures] Neuro: Poor historian, [Expressive aphasia] - Labs CBC & Chem 7: 10/16/21 05:35 10/16/21 05:35 Labs: Abnormal Lab Results - Last 24 Hours (Table) 10/15/21 Range/Units 05:38 Procalcitonin 4.56 H (0.02-0.09) ng/mL Microbiology - Last 24 Hours (Table) 10/11/21 21:22 Blood Culture - Preliminary Blood No Growth after 120 hours 10/11/21 21:22 Blood Culture - Preliminary Blood No Growth after 120 hours Assessment and Plan Plan: Toxic metabolic encephalopathy Acute hypoxic respiratory failure possible related to aspiration pneumonia Acute kidney injury on chronic kidney disease: Serum creatinine fluctuates, 1.8 today compared to 1.6 yesterday Macrocytic anemia Chronic conditions: Systolic CHF, atrial fibrillation, COPD not in acute e xacerbation, history of CVA, dyslipidemia, hypertension Patient's altered mentation is likely multifactorial. CT head negative for acute finding. He is hypoxic with pneumonia seen on chest x-ray. He is also on sedative medication including Gabapentin, which has been lowered by Neurology. EEG is negative. Neurology cleared the patient from a medical standpoint. Patient will be continued on Zosyn for concerns of aspiration PNA. He does not meet sepsis criteria. CXR shows persistent infiltrate. Procalcitonin elevated. Pulmonology recommends repeat procalcitonin. possible DC tomorrow after home O2 eval. DuoNeb scheduled. Swallow evaluation DC IVF. Avoid nephrotoxins. Repeat BMP tomorrow. TSH, B12, Folate within normal limits. aspirin and Lipitor for history of CVA. Eliquis, aspirin and metoprolol for atrial fibrillation. lisinopril, Aldactone and metoprolol for history of hypertension and systolic CHF. Protonix for history of GERD. DVT prophylaxis: [Eliquis] Anticipated discharge: [tomorrow] Anticipated discharge place: [Home once cleared by pulmonology likely 1-2 days]
--- NOTE | 2021-10-17 12:44 | P.PN ---
Subjective Progress Note Date: 10/17/21 Principal diagnosis: Altered mental status, right lower lobe pneumonia A 71-year-old male seen in the emergency room, on October 11, for mental status changes. The patient was apparently brought in by EMS. Most of the history, as noted by the ER physician, was obtained by EMS. The patient apparently was found to be a very unreliable historian, and even now, he is very confused. He thought he was 89 years of age. Not 71. More recently, we are consulted for possible pneumonia. The patient apparently has a history of long-standing tobacco use. The patient has a history of atrial fibrillation, CHF, COPD, CVA, deafness, hyperlipidemia, hypertension, sleep apnea, neuropathy, AICD/pacemaker implantation, and previous PEG tube placement, removed in 2019. Chest x-ray on admission, and the more recent chest x-ray, shows changes of COPD, and right lower lobe infiltrate. White count 7.3 8.4, hematocrit 39, platelet count is 81,000. Sodium 141, potassium 4.6, chloride 109, CO2 23, anion gap 9, BUN 45, and creatinine 1.6. Pro-calcitonin level was elevated at 14.3. Testing for influenza, coronavirus, and respiratory syncytial virus, are all negative. The patient is seen today 10/14/2021 in follow-up on the regular medical floor. He is currently resting comfortably in bed. Awake and alert in no acute distress. Maintaining O2 saturations in the 90s on 2 L nasal cannula. He continues with few scattered rhonchi, mild wheezing. Blood cultures are revealing no growth. Vitamin B12 500. Folate 56.8. TSH 2.130. He remains on Zosyn. Continue bronchodilators. Anticoagulated with Eliquis. Oral diuretics. The patient is seen today 10/15/2021 in follow-up on the regular medical floor. He is awake and alert in no acute distress. Current receiving up in bed. Maintaining good O2 saturations in the 90s on 2 L/m per nasal cannula. Afebrile. Hemodynamically stable. Chest x-ray reveals increasing right lower lobe infiltrate compatible with pneumonia. Blood cultures reveal no growth. Sodium 143. Potassium 4.3. BUN 33. Creatinine 1.5. He is continued on Zosyn. Anticoagulated with Eliquis. Remains on bronchodilators. On 10/16/2021 patient seen in follow-up on a regular medical floor. He is resting comfortably in bed, denies any acute distress, and 2 L of oxygen and pulse ox of 98%. No fever or chills, hemodynamically stable, his breathing comfortably, is awake and alert, answering questions appropriately. His last chest x-ray from yesterday 10/15/2021 showing increasing right lower lobe infiltrate. Patient remains on Zosyn for empiric antibiotic coverage, remains on nebulized bronchodilators. Blood cultures have shown no growth thus far. Pro-calcitonin level was quite elevated on admission at 14.3. Follow-up pro- calcitonin has been sent and is pending at this time. On 10/17/2021 patient seen in follow-up on regular medical surgical floor. He is resting comfortably in bed, his breathing is improving, vital signs have been stable, on 2 L of oxygen his pulse ox is 98%, blood pressure stable, his been afebrile, no worsening dyspnea or congestion. No hemoptysis. His pro- calcitonin level is improving and is down to 4.56 on 10/15/2021 improved from 14.3 on admission. White blood cell count is 4.51, hemoglobin is 11.7, sodium is 144, potassium is 4.6, BUN is 34.6, and creatinine is 1.7. Blood cultures have been negative. No fever or chills, patient remains on Zosyn for empiric antibiotic coverage. Remains on DuoNeb no acute issues overnight. Objective - Vital Signs Vital signs: Vital Signs Temp 97.4 F L 10/17/21 07:28 Pulse 72 10/17/21 09:28 Resp 16 10/17/21 07:28 BP 117/74 10/17/21 07:28 Pulse Ox 98 10/17/21 07:28 FiO2 28 10/16/21 09:04 Intake & Output 10/16/21 10/17/21 10/17/21 18:59 06:59 18:59 Intake Total 360 Output Total 1000 720 Balance -640 -720 Intake: Oral 360 Output: Urine 1000 720 Other: Voiding Method Urinal Urinal - Exam GENERAL EXAM: Alert, very pleasant, 71-year-old on 2 L of oxygen and pulse ox of 98% comfortable in no apparent distress. HEAD: Normocephalic/atraumatic. EYES: Normal reaction of pupils, equal size. Conjunctiva pink, sclera white. NOSE: Clear with pink turbinates. THROAT: No erythema or exudates. NECK: No masses, no JVD, no thyroid enlargement, no adenopathy. CHEST: No chest wall deformity. Symmetrical expansion. LUNGS: Equal air entry with no crackles, wheeze, rhonchi or dullness. CVS: Regular rate and rhythm, normal S1 and S2, no gallops, no murmurs, no rubs ABDOMEN: Soft, nontender. No hepatosplenomegaly, normal bowel sounds, no guarding or rigidity. EXTREMITIES: No clubbing, no edema, no cyanosis, 2+ pulses and upper and lower extremities. MUSCULOSKELETAL: Muscle strength and tone normal. SPINE: No scoliosis or deformity SKIN: No rashes CENTRAL NERVOUS SYSTEM: Alert and oriented -3. No focal deficits, tone is normal in all 4 extremities. PSYCHIATRIC: Alert and oriented -3. Appropriate affect. Intact judgment and insight. - Labs CBC & Chem 7: 10/16/21 05:35 10/16/21 05:35 Labs: Abnormal Lab Results - Last 24 Hours (Table) 10/15/21 Range/Units 05:38 Procalcitonin 4.56 H (0.02-0.09) ng/mL Microbiology - Last 24 Hours (Table) 10/11/21 21:22 Blood Culture - Preliminary Blood No Growth after 120 hours 10/11/21 21:22 Blood Culture - Preliminary Blood No Growth after 120 hours Assessment and Plan Plan: Assessment: Acute on chronic mental status changes, currently being evaluated by the primary service. Mental status changes could relate to pneumonia, right lower lobe. Pro-calcitonin 14.3, improved and is down to 4.56. Remains on Zosyn. Pneumonia, right lower lobe. COPD, relatively stable at this time. History of heavy tobacco use. History of AICD/pacemaker insertion. Prior history of PEG tube placement, and subsequent removal, 2019. History of atrial fibrillation. History of CHF. Prior history of CVA. Hyperlipidemia. Hypertension. History of obstructive sleep apnea syndrome. Plan: Continue current antibiotic treatment with Zosyn Clinically patient is improving Pro-calcitonin level has improved Continue bronchodilators Obtain follow-up chest x-ray tomorrow Increase activity as tolerated May consider discharge home in the next 24-48 hours if clinically improving I have personally seen and examined the patient, performed the documentation and the assessment and plan as written. I have personally seen and examined the patient and reviewed the documentation. I performed a joint evaluation with the nurse practitioner in this evaluation was done more than 20 minutes. I fully agree with the documentation above and the plan of care.. Patient is clinically improving. The patient's pro- calcitonin level is improving. We'll repeat a chest x-ray in the morning. Possible discharge in a.m. on oral antibiotics. Clinically improved. Has home O2. Time with Patient: Less than 30
[2021-10-17] MEDS: ATORVASTATIN 40 MG TAB PO SCH (20:51)
[2021-10-18 02:20] VITALS: RESP 12
[2021-10-18] MEDS: IPRATROPIUM-ALBUTEROL 3 ML NEB INHALATION SCH ×2 (07:40→11:14)
[2021-10-18 07:47] VITALS: BP 109/70; TEMP 97.6
[2021-10-18 07:54] VITALS: PULSE 72
--- NOTE | 2021-10-18 08:24 | XR ---
EXAMINATION TYPE: XR chest 1V portable DATE OF EXAM: 10/18/2021 COMPARISON: Chest x-ray 10/15/2021 HISTORY: Pneumonia TECHNIQUE: Single frontal view of the chest is obtained. FINDINGS: Generators present in the left pectoral region. There are leads in the right ventricle sim ilar to prior exam. The heart is enlarged. Airspace disease persists at the right lung base. Patient is rotated. No evident pneumothorax or pleural effusion. Aorta is dense. IMPRESSION: There is perhaps some slight improvement in aeration. Persistent changes of probable pne umonia. Cardiomegaly is stable.
[2021-10-18] MEDS: PANTOPRAZOLE 40 MG TABLET PO SCH (09:22)
[2021-10-18] MEDS: GABAPENTIN 300 MG CAP PO SCH (09:22)
[2021-10-18] MEDS: allopurinoL 100 MG TAB PO SCH (09:22)
[2021-10-18] MEDS: PIPERACILLIN-TAZOBACTAM 3.375 GM in SODIUM CHLORIDE 0.9% 100 ML IVPB SCH (09:22)
[2021-10-18] MEDS: SERTRALINE 100 MG TAB PO SCH (09:22)
[2021-10-18] MEDS: THIAMINE 100 MG TAB PO SCH (09:22)
[2021-10-18] MEDS: APIXABAN 5 MG TAB PO SCH (09:22)
[2021-10-18] MEDS: FUROSEMIDE 40 MG TAB PO SCH (09:22)
[2021-10-18] MEDS: METOPROLOL SUCCINATE (ER) 100 MG TAB.ER.24H PO SCH (09:23)
[2021-10-18] MEDS: acetaZOLAMIDE 250 MG TAB PO SCH (09:23)
[2021-10-18] MEDS: POTASSIUM CHLORIDE ER 10 MEQ TAB.ER.PRT PO SCH (09:23)
[2021-10-18] MEDS: SPIRONOLACTONE 25 MG TAB PO SCH (09:23)
[2021-10-18] MEDS: ASPIRIN 81 MG PO SCH (09:23)
[2021-10-18 09:42] LABS: African American GFR (CKD) 45.7 (60.0-200.0); Albumin 3.5 g/dL (3.8-4.9); Albumin/Globulin Ratio 1.42 (1.60-3.17); Anion Gap 8.2 mmol/L (10.00-18.00); BUN/Creat Ratio 20.18 Ratio (12.00-20.00); Blood Urea Nitrogen 34.1 mg/dL (9.0-27.0); Calcium 9.1 mg/dL (8.7-10.3); Carbon Dioxide 27.8 mmol/L (20.0-27.5); Globulin 2.5 g/dL (1.6-3.3); Non-African American GFR(CKD) 39.4 (60.0-200.0); Potassium 4.3 mmol/L (3.5-5.5); Total Bilirubin 0.5 mg/dL (0.30-1.20)
--- NOTE | 2021-10-18 10:19 | P.DS ---
Providers Date of admission: 10/11/21 22:44 Expected date of discharge: 10/18/21 Attending physician: Jacqueline Batres MD Consults: 10/11/21 22:44 Consult Physician Routine Consulting Provider: Tory Palma Consult Reason/Comments: encephalopathy, acute Do you want consulting provider notified?: Yes Consult Physician Routine Consulting Provider: Bismark Glynn Consult Reason/Comments: PNA Do you want consulting provider notified?: Yes 10/12/21 19:08 Consult Physician Routine Consulting Provider: Joel Cox Consult Reason/Comments: PNA Do you want consulting provider notified?: Yes Primary care physician: [facility] Hospital Course: Discharge diagnosis Toxic metabolic encephalopathy Acute hypoxic respiratory failure possible related to aspiration pneumonia Acute kidney injury on chronic kidney disease stage IV secondary to hypertension Macrocytic anemia Chronic conditions: Systolic CHF, atrial fibrillation, COPD not in acute exacerbation, history of CVA, dyslipidemia, hypertension Chronic hypoxic respiratory failure on home oxygen 2 L HPI: Patient is a 71-year-old male with PMH of atrial fibrillation, congestive heart failure, COPD, history of CVA with right-sided residual weakness and expressive aphasia, dyslipidemia, hypertension and sleep apnea presents the ED for altered mentation. Due to his clinical condition, majority of information was obtained from charting documentation. Apparently, patient was confused approximately 4 hours prior to presentation. Patient's has a blood pressure of 93/61 with pulse of 70. He is currently on 2 L nasal cannula to maintain O2 saturation greater than 92%. He has a documented temperature 102.4 Fahrenheit on admission. CBC shows leukocytosis of 12 and MCV of 100.1 with platelet count 108. Coagulation panel negative. VBG within normal limits. CMP shows BUN of 50 and creatinine 1.67. COVID-19 negative. Influenza negative. RSV negative. Chest x-ray shows right-sided airspace o pacities. Brain CT shows no acute process, encephalomalacia of the left temporal lobe. CTA head and neck showed bilateral carotid stenosis of 50%, scattered right-sided lung opacities with a few areas of central cavitations. Patient is admitted for altered mentation and treatment of pneumonia. Hospital course and treatment: Patient was admitted to the hospital with toxic metabolic encephalopathy multifactorial. Symptoms were likely attributed to pneumonia, possible aspiration. He was treated with Zosyn. Strattera right lower lobe pneumonia. He has COPD which remained stable. He has a history of atrial fibrillation and was continued on his outpatient medications. Patient is on 2 L of oxygen at home. He has chronic kidney disease which remained stable. Patient feels much better and will be discharged home to follow-up with PCP and pulmonology as an outpatient Patient Condition at Discharge: Serious Plan - Discharge Summary Discharge Rx Participant: No New Discharge Prescriptions: New Amoxic-Pot Clav 875-125Mg [Augmentin 875-125] 1 tab PO Q12HR 5 Days #2 tab Continue Sertraline HCl [Zoloft] 100 mg PO BID Omeprazole [PriLOSEC] 20 mg PO BID allopurinoL [Zyloprim] 100 mg PO BID Aspirin [Adult Low Dose Aspirin EC] 81 mg PO DAILY Acetaminophen-Codeine 300-30mg [Tylenol w/codeine #3] 1 tab PO TID PRN PRN Reason: Pain Rosuvastatin Calcium [Crestor] 20 mg PO HS Albuterol Sulfate [Albuterol Sulfate Hfa] 2 puff INHALATION RT-QID PRN PRN Reason: Shortness Of Breath Apixaban [Eliquis] 5 mg PO BID Jevity 1.5 Jakob Liquid 2 can PO TID Metoprolol Succinate (ER) [Toprol XL] 100 mg PO DAILY Ipratropium-Albuterol Nebulize [Duoneb 0.5 mg-3 mg/3 ml Soln] 3 ml INHALATION RT-QID Furosemide [Lasix] 40 mg PO DAILY #30 acetaZOLAMIDE [Diamox] 125 mg PO BID 30 Days #60 tab lisinopriL [Zestril] 2.5 mg PO DAILY Spironolactone 25 mg PO DAILY Potassium Chloride [Klor-Con 10 ER] 10 meq PO DAILY Mag-Ox 420mg 420 mg PO BID Gabapentin [Neurontin] 600 mg PO TID Thiamine [Vitamin B-1] 100 mg PO DAILY #30 tab Discharge Medication List Aspirin [Adult Low Dose Aspirin EC] 81 mg PO DAILY 09/02/17 [History] Omeprazole [PriLOSEC] 20 mg PO BID 09/02/17 [History] Sertraline HCl [Zoloft] 100 mg PO BID 09/02/17 [History] allopurinoL [Zyloprim] 100 mg PO BID 09/02/17 [History] Acetaminophen-Codeine 300-30mg [Tylenol w/codeine #3] 1 tab PO TID PRN 04/01/19 [History] Rosuvastatin Calcium [Crestor] 20 mg PO HS 08/20/19 [History] Albuterol Sulfate [Albuterol Sulfate Hfa] 2 puff INHALATION RT-QID PRN 12/27/20 [History] Apixaban [Eliquis] 5 mg PO BID 12/27/20 [History] Jevity 1.5 Jakob Liquid 2 can PO TID 12/27/20 [History] Metoprolol Succinate (ER) [Toprol XL] 100 mg PO DAILY 12/27/20 [History] Spironolactone 25 mg PO DAILY 12/27/20 [History] lisinopriL [Zestril] 2.5 mg PO DAILY 12/27/20 [History] Ipratropium-Albuterol Nebulize [Duoneb 0.5 mg-3 mg/3 ml Soln] 3 ml INHALATION RT-QID 02/08/21 [History] Mag-Ox 420mg 420 mg PO BID 02/08/21 [History] Potassium Chloride [Klor-Con 10 ER] 10 meq PO DAILY 02/08/21 [History] Gabapentin [Neurontin] 600 mg PO TID 07/20/21 [History] Furosemide [Lasix] 40 mg PO DAILY #30 07/23/21 [Rx] Thiamine [Vitamin B-1] 100 mg PO DAILY #30 tab 07/23/21 [Rx] acetaZOLAMIDE [Diamox] 125 mg PO BID 30 Days #60 tab 08/22/21 [Rx] Amoxic-Pot Clav 875-125Mg [Augmentin 875-125] 1 tab PO Q12HR 5 Days #2 tab 10/18/21 [Rx] Follow up Appointment(s)/Referral(s): [facility] [NON-STAFF] - As Needed (*Call the [facility] to see if they have a shower chair or other medical equipment as needed. ) [facility] [Primary Care Provider] - 1-2 days Discharge Disposition: HOME WITH HOME HEALTH SERVICES
[2021-10-18 10:26] LABS: Basophils # (A) 0.01 X 10*3/uL (0.00-0.10); Basophils % (A) 0.2 %; Eosinophils # (A) 0.12 X 10*3/uL (0.04-0.35); Eosinophils % (A) 2.1 %; HCT 42.3 % (39.6-50.0); HGB 12.7 g/dL (13.0-17.0); Immature Grans, Automated 0.2 %; Lymphocytes # (A) 1.34 X 10*3/uL (0.90-5.00); Lymphocytes % (A) 23.5 %; MCH 29.3 pg (27.0-32.0); MCV 97.7 fL (80.0-97.0); Mean Platelet Volume 12.3 fL (9.5-12.2); Monocytes # (A) 0.39 X 10*3/uL (0.20-1.00); Monocytes % (A) 6.8 %; NRBC Per 100 WBC 0 /100 WBCS (0.0-0.0); Neutrophils # (A) 3.84 X 10*3/uL (1.80-7.70); Neutrophils % (A) 67.2 %; Platelet Count 102 X 10*3/uL (140-440); RBC 4.33 X 10*6/uL (4.40-5.60); RDW 17.7 % (11.5-14.5); WBC 5.71 X 10*3/uL (4.50-10.00)
--- NOTE | 2021-10-18 13:58 | P.PN ---
Subjective Progress Note Date: 10/18/21 Principal diagnosis: Altered mental status, right lower lobe pneumonia A 71-year-old male seen in the emergency room, on October 11, for mental status changes. The patient was apparently brought in by EMS. Most of the history, as noted by the ER physician, was obtained by EMS. The patient apparently was found to be a very unreliable historian, and even now, he is very confused. He thought he was 89 years of age. Not 71. More recently, we are consulted for possible pneumonia. The patient apparently has a history of long-standing tobacco use. The patient has a history of atrial fibrillation, CHF, COPD, CVA, deafness, hyperlipidemia, hypertension, sleep apnea, neuropathy, AICD/pacemaker implantation, and previous PEG tube placement, removed in 2019. Chest x-ray on admission, and the more recent chest x-ray, shows changes of COPD, and right lower lobe infiltrate. White count 7.3 8.4, hematocrit 39, platelet count is 81,000. Sodium 141, potassium 4.6, chloride 109, CO2 23, anion gap 9, BUN 45, and creatinine 1.6. Pro-calcitonin level was elevated at 14.3. Testing for influenza, coronavirus, and respiratory syncytial virus, are all negative. The patient is seen today 10/14/2021 in follow-up on the regular medical floor. He is currently resting comfortably in bed. Awake and alert in no acute distress. Maintaining O2 saturations in the 90s on 2 L nasal cannula. He continues with few scattered rhonchi, mild wheezing. Blood cultures are revealing no growth. Vitamin B12 500. Folate 56.8. TSH 2.130. He remains on Zosyn. Continue bronchodilators. Anticoagulated with Eliquis. Oral diuretics. The patient is seen today 10/15/2021 in follow-up on the regular medical floor. He is awake and alert in no acute distress. Current receiving up in bed. Maintaining good O2 saturations in the 90s on 2 L/m per nasal cannula. Afebrile. Hemodynamically stable. Chest x-ray reveals increasing right lower lobe infiltrate compatible with pneumonia. Blood cultures reveal no growth. Sodium 143. Potassium 4.3. BUN 33. Creatinine 1.5. He is continued on Zosyn. Anticoagulated with Eliquis. Remains on bronchodilators. On 10/16/2021 patient seen in follow-up on a regular medical floor. He is resting comfortably in bed, denies any acute distress, and 2 L of oxygen and pulse ox of 98%. No fever or chills, hemodynamically stable, his breathing comfortably, is awake and alert, answering questions appropriately. His last chest x-ray from yesterday 10/15/2021 showing increasing right lower lobe infiltrate. Patient remains on Zosyn for empiric antibiotic coverage, remains on nebulized bronchodilators. Blood cultures have shown no growth thus far. Pro-calcitonin level was quite elevated on admission at 14.3. Follow-up pro- calcitonin has been sent and is pending at this time. On 10/17/2021 patient seen in follow-up on regular medical surgical floor. He is resting comfortably in bed, his breathing is improving, vital signs have been stable, on 2 L of oxygen his pulse ox is 98%, blood pressure stable, his been afebrile, no worsening dyspnea or congestion. No hemoptysis. His pro- calcitonin level is improving and is down to 4.56 on 10/15/2021 improved from 14.3 on admission. White blood cell count is 4.51, hemoglobin is 11.7, sodium is 144, potassium is 4.6, BUN is 34.6, and creatinine is 1.7. Blood cultures have been negative. No fever or chills, patient remains on Zosyn for empiric antibiotic coverage. Remains on DuoNeb no acute issues overnight. On 10/18/2021 patient seen in follow-up on medical surgical floor, he is awake and alert, in no acute distress, breathing comfortably, continues to improve. Vital signs are stable, no fever or chills, follow-up chest x-ray today showing some further improvement in aeration of the right lung base. Patient continues on Zosyn for a better coverage, nebulized bronchodilators. Blood cultures have shown no growth. His Prograf level was improving from admission, his white blood cell count is normal on today's labs at 5.71, hemoglobin is 12.7, sodium is 142, potassium is 4.3, chloride is 106, BUN is 34, and creatinine is 1.7. Patient has been tolerating ambulation. Objective - Vital Signs Vital signs: Vital Signs Temp 97.6 F 10/18/21 07:46 Pulse 72 10/18/21 07:54 Resp 12 10/18/21 01:46 BP 109/70 10/18/21 07:46 Pulse Ox 94 L 10/18/21 07:46 FiO2 28 10/16/21 09:04 Intake & Output 10/17/21 10/18/21 10/18/21 18:59 06:59 18:59 Output Total 1500 1070 Balance -1500 -1070 Output: Urine 1500 1070 - Exam GENERAL EXAM: Alert, very pleasant, 71-year-old on 2 L of oxygen and pulse ox of 98% comfortable in no apparent distress. HEAD: Normocephalic/atraumatic. EYES: Normal reaction of pupils, equal size. Conjunctiva pink, sclera white. NOSE: Clear with pink turbinates. THROAT: No erythema or exudates. NECK: No masses, no JVD, no thyroid enlargement, no adenopathy. CHEST: No chest wall deformity. Symmetrical expansion. LUNGS: Equal air entry with no crackles, wheeze, rhonchi or dullness. CVS: Regular rate and rhythm, normal S1 and S2, no gallops, no murmurs, no rubs ABDOMEN: Soft, nontender. No hepatosplenomegaly, normal bowel sounds, no guarding or rigidity. EXTREMITIES: No clubbing, no edema, no cyanosis, 2+ pulses and upper and lower extremities. MUSCULOSKELETAL: Muscle strength and tone normal. SPINE: No scoliosis or deformity SKIN: No rashes CENTRAL NERVOUS SYSTEM: Alert and oriented -3. No focal deficits, tone is normal in all 4 extremities. PSYCHIATRIC: Alert and oriented -3. Appropriate affect. Intact judgment and insight. - Labs CBC & Chem 7: 10/18/21 06:20 10/18/21 06:20 Labs: Abnormal Lab Results - Last 24 Hours (Table) 10/18/21 10/18/21 Range/Units 06:20 06:20 RBC 4.33 L (4.40-5.60) X 10*6/uL Hgb 12.7 L (13.0-17.0) g/dL MCV 97.7 H (80.0-97.0) fL MCHC 30.0 L (32.0-37.0) g/dL RDW 17.7 H (11.5-14.5) % Plt Count 102 L (140-440) X 10*3/uL Plt Count Comment DECREASED A MPV 12.3 H (9.5-12.2) fL Carbon Dioxide 27.8 H (20.0-27.5) mmol/L Anion Gap 8.20 L (10.00-18.00) mmol/L BUN 34.1 H (9.0-27.0) mg/dL Creatinine 1.7 H (0.6-1.5) mg/dL Est GFR (CKD-EPI)AfAm 45.7 L (60.0-200.0) Est GFR (CKD-EPI)NonAf 39.4 L (60.0-200.0) BUN/Creatinine Ratio 20.18 H (12.00-20.00) Ratio Total Protein 6.0 L (6.2-8.2) g/dL Albumin 3.5 L (3.8-4.9) g/dL Albumin/Globulin Ratio 1.42 L (1.60-3.17) g/dL Microbiology - Last 24 Hours (Table) 10/11/21 21:22 Blood Culture - Final Blood No Growth after 144 hours 10/11/21 21:22 Blood Culture - Final Blood No Growth after 144 hours Assessment and Plan Plan: Assessment: Acute on chronic mental status changes, currently being evaluated by the primary service. Mental status changes could relate to pneumonia, right lower lobe. Pro-calcitonin 14.3, improved and is down to 4.56. Remains on Zosyn. Pneumonia, right lower lobe, improving on follow-up chest x-ray COPD, relatively stable at this time. History of heavy tobacco use. History of AICD/pacemaker insertion. Prior history of PEG tube placement, and subsequent removal, 2019. History of atrial fibrillation. History of CHF. Prior history of CVA. Hyperlipidemia. Hypertension. History of obstructive sleep apnea syndrome. Plan: Clinically patient continues to improve Vital signs have been stable no fever or chills Pro-calcitonin level has improved IV antibiotics can be transitioned to oral Augmentin Continue bronchodilators Discharge home today is pending Follow-up with Dr. Cox in one week I have personally seen and examined the patient, performed the documentation and the assessment and plan as written. I have personally seen and examined the patient and reviewed the documentation. I performed a joint evaluation with the nurse practitioner in this evaluation was done more than 20 minutes. I fully agree with the documentation above and the plan of care. Clinically improved. Chest x-ray is improving. The patient can be discharged home on Augmentin and prednisone burst taper and he has home O2 to be followed up on outpatient basis Time with Patient: Less than 30
--- NOTE | 2021-10-18 16:30 | P.PN ---
Subjective Progress Note Date: 10/17/21 Principal diagnosis: Pneumonia Patient is a 71-year-old male with a past medical history significant for CVA patient was brought into the ER for evaluation of mental status changes noticed to have fever chest x-ray with right-sided airspace disease concerning for pneumonia possible aspiration. On today's evaluation that is 10/17/2021, the patient remains to be afebrile, the patient is breathing comfortably on 2 L nasal cannula oxygen , patient cough has decreased intensity and mostly dry in nature, patient denies any chest pain no abdominal pain no diarrhea Objective - Vital Signs Vital signs: Vital Signs Temp 97.4 F L 10/17/21 07:28 Pulse 72 10/17/21 09:28 Resp 16 10/17/21 07:28 BP 117/74 10/17/21 07:28 Pulse Ox 98 10/17/21 07:28 FiO2 28 10/16/21 09:04 Intake & Output 10/16/21 10/17/21 10/17/21 18:59 06:59 18:59 Intake Total 360 Output Total 1000 720 Balance -640 -720 Intake: Oral 360 Output: Urine 1000 720 Other: Voiding Method Urinal Urinal - Exam GENERAL DESCRIPTION: An elderly male lying in bed in no distress RESPIRATORY SYSTEM: Unlabored breathing , decreased breath sounds at bases HEART: S1 S2 regular rate and rhythm , ABDOMEN: Soft , no tenderness EXTREMITIES: No edema feet - Labs CBC & Chem 7: 10/18/21 06:20 10/18/21 06:20 Labs: Abnormal Lab Results - Last 24 Hours (Table) 10/15/21 Range/Units 05:38 Procalcitonin 4.56 H (0.02-0.09) ng/mL Microbiology - Last 24 Hours (Table) 10/11/21 21:22 Blood Culture - Preliminary Blood No Growth after 120 hours 10/11/21 21:22 Blood Culture - Preliminary Blood No Growth after 120 hours Assessment and Plan (1) Aspiration pneumonia Status: Acute Code(s): J69.0 - PNEUMONITIS DUE TO INHALATION OF FOOD AND VOMIT SNOMED Code(s): 395507100 Plan: 1patient presented to hospital with sepsis in this we did have fever elevated white count source likely right-sided pneumonia in this patient with a history of CVA concerning likely for an aspiration pneumonia and possible gram-negative. 2 patient slowly clinically improving and currently being treated with Zosyn 3.375 g every 8 hours with a plan to finish therapy with oral Augmentin Time with Patient: Less than 30
--- NOTE | 2021-10-18 16:31 | P.PN ---
Subjective Progress Note Date: 10/18/21 Principal diagnosis: Pneumonia Patient is a 71-year-old male with a past medical history significant for CVA patient was brought into the ER for evaluation of mental status changes noticed to have fever chest x-ray with right-sided airspace disease concerning for pneumonia possible aspiration. On today's evaluation that is 10/18/2021, the patient denies any fever or any chills, the patient is breathing comfortably on 2 L nasal cannula oxygen , patient cough has decreased intensity and not bringing up any sputum, patient denies any chest pain no abdominal pain no diarrhea with antibiotic therapy Objective - Vital Signs Vital signs: Vital Signs Temp 97.6 F 10/18/21 07:46 Pulse 72 10/18/21 07:54 Resp 12 10/18/21 01:46 BP 109/70 10/18/21 07:46 Pulse Ox 94 L 10/18/21 07:46 FiO2 28 10/16/21 09:04 Intake & Output 10/17/21 10/18/21 10/18/21 18:59 06:59 18:59 Output Total 1500 1070 Balance -1500 -1070 Output: Urine 1500 1070 - Exam GENERAL DESCRIPTION: An elderly male lying in bed in no distress RESPIRATORY SYSTEM: Unlabored breathing , decreased breath sounds at bases HEART: S1 S2 regular rate and rhythm , ABDOMEN: Soft , no tenderness EXTREMITIES: No edema feet - Labs CBC & Chem 7: 10/18/21 06:20 10/18/21 06:20 Labs: Abnormal Lab Results - Last 24 Hours (Table) 10/18/21 10/18/21 Range/Units 06:20 06:20 RBC 4.33 L (4.40-5.60) X 10*6/uL Hgb 12.7 L (13.0-17.0) g/dL MCV 97.7 H (80.0-97.0) fL MCHC 30.0 L (32.0-37.0) g/dL RDW 17.7 H (11.5-14.5) % Plt Count 102 L (140-440) X 10*3/uL Plt Count Comment DECREASED A MPV 12.3 H (9.5-12.2) fL Carbon Dioxide 27.8 H (20.0-27.5) mmol/L Anion Gap 8.20 L (10.00-18.00) mmol/L BUN 34.1 H (9.0-27.0) mg/dL Creatinine 1.7 H (0.6-1.5) mg/dL Est GFR (CKD-EPI)AfAm 45.7 L (60.0-200.0) Est GFR (CKD-EPI)NonAf 39.4 L (60.0-200.0) BUN/Creatinine Ratio 20.18 H (12.00-20.00) Ratio Total Protein 6.0 L (6.2-8.2) g/dL Albumin 3.5 L (3.8-4.9) g/dL Albumin/Globulin Ratio 1.42 L (1.60-3.17) g/dL Microbiology - Last 24 Hours (Table) 10/11/21 21:22 Blood Culture - Final Blood No Growth after 144 hours 10/11/21 21:22 Blood Culture - Final Blood No Growth after 144 hours Assessment and Plan (1) Aspiration pneumonia Status: Acute Code(s): J69.0 - PNEUMONITIS DUE TO INHALATION OF FOOD AND VOMIT SNOMED Code(s): 354865284 Plan: 1patient presented to hospital with sepsis in this we did have fever elevated white count source likely right-sided pneumonia in this patient with a history of CVA concerning likely for an aspiration pneumonia and possible gram-negative. 2 patient has shown overall clinical improvement blood culture negative sputum not collected will finish therapy with oral Augmentin 5 days and close out patient follow-up Time with Patient: Less than 30
== END 2021-10-18 14:43 | disposition home or self-care (01) | DRG 177 ==
LOC: EC 20:29 → 4SSUR 22:44
PROVIDERS: ADMIT Family Medicine; ATTEND Family Medicine
DX: J69.0 Pneumonitis due to inhalation of food and vomit (principal); G92.8 Other toxic encephalopathy; I50.23 Acute on chronic systolic (congestive) heart failure; J96.21 Acute and chronic respiratory failure with hypoxia; I69.351 Hemiplegia and hemiparesis following cerebral infarction affecting right dominant side; J44.0 Chronic obstructive pulmonary disease with (acute) lower respiratory infection; I13.0 Hypertensive heart and chronic kidney disease with heart failure and stage 1 through stage 4 chronic kidney disease, or unspecified chronic kidney disease; N18.4 Chronic kidney disease, stage 4 (severe); N17.9 Acute kidney failure, unspecified; N39.0 Urinary tract infection, site not specified; Z20.822 Contact with and (suspected) exposure to COVID-19; D63.1 Anemia in chronic kidney disease; Z28.21 Immunization not carried out because of patient refusal; G62.9 Polyneuropathy, unspecified; Z87.891 Personal history of nicotine dependence; I69.320 Aphasia following cerebral infarction; D53.9 Nutritional anemia, unspecified; E86.0 Dehydration; F32.A Depression, unspecified; H26.9 Unspecified cataract; I65.23 Occlusion and stenosis of bilateral carotid arteries; Z99.81 Dependence on supplemental oxygen; G93.89 Other specified disorders of brain; F43.10 Post-traumatic stress disorder, unspecified; E78.5 Hyperlipidemia, unspecified; H91.90 Unspecified hearing loss, unspecified ear; I48.91 Unspecified atrial fibrillation; Z79.01 Long term (current) use of anticoagulants; Z79.82 Long term (current) use of aspirin; Z79.899 Other long term (current) drug therapy; Z95.810 Presence of automatic (implantable) cardiac defibrillator; Z88.0 Allergy status to penicillin; Z88.2 Allergy status to sulfonamides
CPT/HCPCS: 36415; 70450; 70496; 70498; 71045; 80048; 80053; 81001; 82607; 82746; 82803; 83605; 84145; 84443; 85025; 85027; 85610; 85730; 87040; 87636; 93005; 93306; 94640; 94760; 95819; 96360; 96361; 96365; 96366; 99291

== ENCOUNTER 2021-12-28 13:07 | Observation (INO) | payer OTHER, MEDICARE ==
--- NOTE | 2021-12-28 13:56 | ED ---
General Adult HPI - General Chief complaint: Shortness of Breath Stated complaint: Covid+, AAMIR Time Seen by Provider: 12/28/21 13:40 Source: patient, family, RN notes reviewed, old records reviewed Mode of arrival: ambulatory Limitations: no limitations - History of Present Illness Initial comments: 70-year-old male presents to the emergency room with family member complaining of shortness of breath worsening after being diagnosed with coronavirus 8 days ago. Patient has been vaccinated. He denies any chest pain, does have nausea but no vomiting. Has a nonproductive cough. He does have a history of A. fib, congestive heart failure, COPD on 2 l at home, hypertension, AICD and CVA. He does have a PEG tube due to dysphagia. -: days(s) (8) Severity scale (1-10): 0 Associated Symptoms: nausea/vomiting (no vomiting), shortness of breath - Related Data Home Medications Medication Instructions Recorded Confirmed Aspirin [Adult Low Dose Aspirin EC] 81 mg PO DAILY 09/02/17 12/28/21 Omeprazole [PriLOSEC] 20 mg PO BID 09/02/17 12/28/21 Sertraline HCl [Zoloft] 100 mg PO BID 09/02/17 12/28/21 allopurinoL [Zyloprim] 100 mg PO BID 09/02/17 12/28/21 Acetaminophen-Codeine 300-30mg 1 tab PO TID PRN 04/01/19 12/28/21 [Tylenol w/codeine #3] Rosuvastatin Calcium [Crestor] 20 mg PO HS 08/20/19 12/28/21 Albuterol Sulfate [Albuterol 2 puff INHALATION RT-QID PRN 12/27/20 12/28/21 Sulfate Hfa] Apixaban [Eliquis] 5 mg PO BID 12/27/20 12/28/21 Jevity 1.5 Jakob Liquid 3 can PO DAILY 12/27/20 12/28/21 Metoprolol Succinate (ER) [Toprol 100 mg PO DAILY 12/27/20 12/28/21 XL] Spironolactone 25 mg PO DAILY 12/27/20 12/28/21 lisinopriL [Zestril] 2.5 mg PO DAILY 12/27/20 12/28/21 Ipratropium-Albuterol Nebulize 3 ml INHALATION RT-QID 02/08/21 12/28/21 [Duoneb 0.5 mg-3 mg/3 ml Soln] Mag-Ox 420mg 420 mg PO BID 02/08/21 12/28/21 Gabapentin [Neurontin] 800 mg PO TID 12/28/21 12/28/21 Previous Rx's Medication Instructions Recorded Furosemide [Lasix] 40 mg PO DAILY #30 07/23/21 Thiamine [Vitamin B-1] 100 mg PO DAILY #30 tab 07/23/21 acetaZOLAMIDE [Diamox] 125 mg PO BID 30 Days #60 tab 08/22/21 Allergies Allergy/AdvReac Type Severity Reaction Status Date / Time fluticasone Allergy Dyspnea Verified 12/28/21 16:12 [From Wixela Inhub] metolazone [From Zaroxolyn] Allergy Rash/Hives Verified 12/28/21 16:12 salmeterol Allergy Dyspnea Verified 12/28/21 16:12 [From Wixela Inhub] warfarin [From Coumadin] Allergy Unknown Verified 12/28/21 16:12 fluvastatin AdvReac weakness/muscle Verified 12/28/21 16:12 pain simvastatin AdvReac muscle pain Verified 12/28/21 16:12 sulfamethoxazole AdvReac Abdominal Verified 12/28/21 16:12 [From Bactrim] Pain trimethoprim [From Bactrim] AdvReac Abdominal Verified 12/28/21 16:12 Pain Review of Systems ROS Statement: Those systems with pertinent positive or pertinent negative responses have been documented in the HPI. ROS Other: All systems not noted in ROS Statement are negative. 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 sided weakness,cataracts, bruises easily due to coumadin,does not wear cpap,neuropathy moe. feet History of Any Multi-Drug Resistant Organisms: None Reported Past Surgical History: AICD, Heart Catheterization With Stent Additional Past Surgical History / Comment(s): AICD/Pacemaker, PEG tube placed in [address] Anglin in 2019 Past Anesthesia/Blood Transfusion Reactions: No Reported Reaction Date of Last Stent Placement:: unk Type of Cardiac Device: AICD Device Placement Date:: 2009 Past Psychological History: Anxiety, Depression, PTSD Smoking Status: Former smoker Past Drug Use History: None Reported - Past Family History Brother(s) Family Medical History: Deep Vein Thrombosis (DVT) General Exam Limitations: no limitations General appearance: alert, in no apparent distress Head exam: Present: atraumatic Eye exam: Present: EOMI. Absent: scleral icterus, conjunctival injection, periorbital swelling ENT exam: Present: normal exam, mucous membranes moist Neck exam: Present: normal inspection, full ROM. Absent: tenderness, meningismus Respiratory exam: Present: rhonchi, decreased breath sounds (Diminished on the left). Absent: respiratory distress, wheezes, rales, stridor, chest wall tenderness, accessory muscle use Cardiovascular Exam: Present: regular rate GI/Abdominal exam: Present: soft. Absent: distended, tenderness, rigid Extremities exam: Present: other (Bilateral lower extremity tortuous va ricosities). Absent: pedal edema Neurological exam: Present: alert, oriented X3, normal gait (with cane) Psychiatric exam: Present: normal affect, normal mood Skin exam: Present: warm, dry, normal color. Absent: cyanosis, diaphoretic, erythema, petechiae, pallor, mottled Course Vital Signs 12/28/21 13:12 Temperature 97.8 F Pulse Rate 72 Respiratory 20 Rate Blood Pressure 95/60 O2 Sat by Pulse 95 Oximetry EKG Findings - IL, Pacemaker, Normal: Pacemaker: ventricular pacing w/capture (except when refractory) (Ventricular rate 78, QRS 0.177, QTC 0.490; electronic ventricular pacemaker; compared to old 10/11/2021) Medical Decision Making - Medical Decision Making No evidence of acute pulmonary disease. Hyperinflation compatible with COPD, No infiltrate. Moderate cardiomegaly. Potassium 5.7, significant other states off potassium supplementation r/t hyperkalemia for one week and was told to have it redrawn [place] [address]. He is complaining of shortness of breath but denies any chest pain. Chest x-ray shows no acute pulmonary disease. Case discussed with Dr Alexis , due to patient's significant cardiac history he will be placed in obs for hyperkalemia. Hyperkalemia cocktail and lasix given. - Lab Data Result diagrams: 12/28/21 14:04 12/28/21 16:29 Lab Results 12/28/21 12/28/21 12/28/21 Range/Units 14:04 14:04 14:04 WBC 5.9 (3.8-10.6) k/uL RBC 4.26 L (4.30-5.90) m/uL Hgb 13.4 (13.0-17.5) gm/dL Hct 42.7 (39.0-53.0) % MCV 100.2 H (80.0-100.0) fL MCH 31.3 (25.0-35.0) pg MCHC 31.3 (31.0-37.0) g/dL RDW 15.6 H (11.5-15.5) % Plt Count 134 L (150-450) k/uL MPV 10.3 Neutrophils % 77 % Lymphocytes % 15 % Monocytes % 6 % Eosinophils % 1 % Basophils % 1 % Neutrophils # 4.5 (1.3-7.7) k/uL Lymphocytes # 0.9 L (1.0-4.8) k/uL Monocytes # 0.3 (0-1.0) k/uL Eosinophils # 0.1 (0-0.7) k/uL Basophils # 0.0 (0-0.2) k/uL Hypochromasia Moderate Macrocytosis Slight PT 10.9 (9.0-12.0) sec INR 1.0 (<1.2) APTT 26.3 (22.0-30.0) sec Sodium 138 (137-145) mmol/L Potassium 5.7 H (3.5-5.1) mmol/L Chloride 98 (98-107) mmol/L Carbon Dioxide 30 (22-30) mmol/L Anion Gap 10 mmol/L BUN 40 H (9-20) mg/dL Creatinine 1.34 H (0.66-1.25) mg/dL Est GFR (CKD-EPI)AfAm 61 (>60 ml/min/1.73 sqM) Est GFR (CKD-EPI)NonAf 53 (>60 ml/min/1.73 sqM) Glucose 97 (74-99) mg/dL Calcium 9.4 (8.4-10.2) mg/dL Magnesium 2.2 (1.6-2.3) mg/dL Total Bilirubin 1.1 (0.2-1.3) mg/dL AST 72 H (17-59) U/L ALT 29 (4-49) U/L Alkaline Phosphatase 113 (38-126) U/L NT-Pro-B Natriuret Pep pg/mL Total Protein 7.3 (6.3-8.2) g/dL Albumin 4.1 (3.5-5.0) g/dL 12/28/21 Range/Units 14:04 WBC (3.8-10.6) k/uL RBC (4.30-5.90) m/uL Hgb (13.0-17.5) gm/dL Hct (39.0-53.0) % MCV (80.0-100.0) fL MCH (25.0-35.0) pg MCHC (31.0-37.0) g/dL RDW (11.5-15.5) % Plt Count (150-450) k/uL MPV Neutrophils % % Lymphocytes % % Monocytes % % Eosinophils % % Basophils % % Neutrophils # (1.3-7.7) k/uL Lymphocytes # (1.0-4.8) k/uL Monocytes # (0-1.0) k/uL Eosinophils # (0-0.7) k/uL Basophils # (0-0.2) k/uL Hypochromasia Macrocytosis PT (9.0-12.0) sec INR (<1.2) APTT (22.0-30.0) sec Sodium (137-145) mmol/L Potassium (3.5-5.1) mmol/L Chloride (98-107) mmol/L Carbon Dioxide (22-30) mmol/L Anion Gap mmol/L BUN (9-20) mg/dL Creatinine (0.66-1.25) mg/dL Est GFR (CKD-EPI)AfAm (>60 ml/min/1.73 sqM) Est GFR (CKD-EPI)NonAf (>60 ml/min/1.73 sqM) Glucose (74-99) mg/dL Calcium (8.4-10.2) mg/dL Magnesium (1.6-2.3) mg/dL Total Bilirubin (0.2-1.3) mg/dL AST (17-59) U/L ALT (4-49) U/L Alkaline Phosphatase (38-126) U/L NT-Pro-B Natriuret Pep 29415 pg/mL Total Protein (6.3-8.2) g/dL Albumin (3.5-5.0) g/dL Disposition Clinical Impression: Hyperkalemia, COVID-19, COPD (chronic obstructive pulmonary disease), CHF exacerbation Disposition: ADMITTED IP TO THIS HOSP Decision Date: 12/28/21 Decision Time: 15:45
[2021-12-28 14:25] LABS: Basophils % (A) 1 %; Eosinophils # (A) 0.1 k/uL (0-0.7); Eosinophils % (A) 1 %; HCT 42.7 % (39.0-53.0); HGB 13.4 gm/dL (13.0-17.5); Hypochromasia Moderate; Lymphocytes # (A) 0.9 k/uL (1.0-4.8); Lymphocytes % (A) 15 %; MCH 31.3 pg (25.0-35.0); MCHC 31.3 g/dL (31.0-37.0); MCV 100.2 fL (80.0-100.0); Macrocytosis Slight; Mean Platelet Volume 10.3; Monocytes # (A) 0.3 k/uL (0-1.0); Monocytes % (A) 6 %; Neutrophils # (A) 4.5 k/uL (1.3-7.7); Neutrophils % (A) 77 %; Platelet Count 134 k/uL (150-450); RBC 4.26 m/uL (4.30-5.90); RDW 15.6 % (11.5-15.5); WBC 5.9 k/uL (3.8-10.6)
[2021-12-28 14:38] LABS: Partial Thromboplastin Time 26.3 sec (22.0-30.0); Prothrombin Time 10.9 sec (9.0-12.0)
[2021-12-28 14:39] LABS: Albumin 4.1 g/dL (3.5-5.0); Calcium 9.4 mg/dL (8.4-10.2); Magnesium 2.2 mg/dL (1.6-2.3); Total Bilirubin 1.1 mg/dL (0.2-1.3); Total Protein 7.3 g/dL (6.3-8.2)
[2021-12-28 14:42] LABS: Potassium 5.7 mmol/L (3.5-5.1)
--- NOTE | 2021-12-28 15:20 | XR ---
EXAMINATION TYPE: XR chest 2V DATE OF EXAM: 12/28/2021 COMPARISON: 10/18/21 HISTORY: Shortness of breath TECHNIQUE: Frontal and lateral views of the chest are obtained. FINDINGS: Scattered senescent parenchymal changes noted. Hyperinflation compatible with COPD. No evidence for infiltrate. No evidence for atelectasis. Moderate cardiomegaly. Mediastinal structures are stable and grossly unremarkable. No evidence for hilar prominence. Degenerative changes dorsal spine. IMPRESSION: 1. No evidence for acute pulmonary disease.
[2021-12-28] MEDS ORDERED: DEXTROSE 50% SYRINGE 50 ML IVP ONE (15:42)
[2021-12-28] MEDS ORDERED: ALBUTEROL NEB (CONC) 2.5 MG/0.5 ML INHALATION ONE (15:42)
[2021-12-28] MEDS ORDERED: SODIUM BICARB 8.4% 50 ML SYR (1 MEQ/ML) IV ONE (15:42)
[2021-12-28] MEDS ORDERED: INSULIN REGULAR 100 UNIT/ML VIAL (IV) IV ONE (15:42)
[2021-12-28] MEDS ORDERED: FUROSEMIDE 10 MG/ML 4 ML VIAL IV STA (15:59)
[2021-12-28] MEDS ORDERED: CALCIUM GLUCONATE IN NACL 1 GM in SALINE 1 100ML.BAG IVPB ONE (16:00)
[2021-12-28] MEDS ORDERED: SODIUM ZIRCONIUM CYCLOSILICATE 10 GM PACKET PO ONE (16:00)
[2021-12-28] MEDS ORDERED: ACETAMINOPHEN TAB 325 MG TAB PO PRN (16:13)
[2021-12-28] MEDS ORDERED: NALOXONE 0.4 MG/ML 1 ML VIAL IV PRN (16:13)
[2021-12-28] MEDS ORDERED: IPRATROPIUM-ALBUTEROL 3 ML NEB INHALATION PRN (16:56)
--- NOTE | 2021-12-28 17:01 | P.HPIM ---
History of Present Illness H&P Date: 12/28/21 Patient is a 71-year-old male with PMH of CVA with right-sided residual weakness and PEG, atrial fibrillation, systolic CHF with EF of 20% and grade 2 diastolic dysfunction, COPD on 2 L home O2, hypertension, dyslipidemia, CAD the presence ED for shortness of breath. Patient was diagnosed with COVID-19 ED as well. Reports shortness of breath has been ongoing for the past 2 days. Breathing is worsened with exertion. He reports a dry cough. He reports poor appetite. He has no other complaints. He denies any headache, lower extremity edema, nausea vomiting, fever or chills, chest pain, palpitations, changes in urination or bowel habits. No changes in appetite or weight. He denies any dizziness, numbness/weakness as tingling of extremities. In the ED, his vital signs are stable. CBC showed MCV of 100.2. CMP showed potassium of 5.7, BUN 40, creatinine 1.34, AST of 72. BNP was 16,600 chest x-ray was negative. Patient is admitted for shortness of breath and hyperkalemia under observation status. Review of systems is performed and is negative except above. General: non toxic, no distress, appears at stated age Derm: warm, dry Head: atraumatic, normocephalic, symmetric Eyes: EOMI, no lid lag, anicteric sclera Mouth: no lip lesion, mucus membranes moist Cardiovascular: S1S2 reg, no murmur, positive posterior tibial pulse bilateral, Lungs: CTA bilateral, no rhonchi, no rales , no accessory muscle use Abdominal: soft, nontender to palpation, no guarding, PEG intact Ext: no gross muscle atrophy, no edema, no contractures Neuro: CN II-XI grossly intact, right upper and right lower extremity 4-5 strength, left upper and left lower extremity 5 out of 5 Psych: Alert, oriented, appropriate affect #Dyspnea #Recent diagnosis of COVID-19 #Hyperkalemia #Macrocytosis Chronic conditions: CVA, atrial fibrillation, systolic CHF, COPD, hypertension Patient presents with shortness of breath has been ongoing for the past 2 days. He is at baseline with regard to his oxygenation of 2 L home O2. He does not require any treatment with regard to COVID-19 at this time. His BNP is elevated but chest x-ray is negative. Patient's potassium was 5.7. Assessment was hemolyzed. Repeat potassium is 4.9. Advised nursing and ED to told any ordered treatment by ED physician. Hold CHASITY inhibitor and Aldactone. We will repeat BMP tomorrow morning. Patient will need outpatient workup with regard to his macrocytosis. Restart aspirin and Crestor with regard to history of CVA. Restart metoprolol and Eliquis with regard to A. fib. Restarted Lasix and metoprolol with regard to systolic and diastolic CHF. DuoNeb as needed for shortness of breath or wheezing. Anti-hypertensive medication as described, monitor vitals, adjust medication if necessary. DVT prophylaxis: [Eliquis] Discussed with: [Patient, significant other, ED physician] Anticipated discharge: [1-2 days] Anticipated discharge place: [Home] A total of [35] minutes was spent on the care of this complex patient more than 50% of the time was spent in counseling and care coordination. Patient names his significant other decision make if he can't make decisions for himself. Patient would like to be full code. 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 sided weakness,cataracts, bruises easily due to coumadin,does not wear cpap,neuropathy moe. feet History of Any Multi-Drug Resistant Organisms: None Reported Past Surgical History: AICD, Heart Catheterization With Stent Additional Past Surgical History / Comment(s): AICD/Pacemaker, PEG tube placed in [address] Anglin in 2019 Past Anesthesia/Blood Transfusion Reactions: No Reported Reaction Date of Last Stent Placement:: unk Type of Cardiac Device: AICD Device Placement Date:: 2009 Past Psychological History: Anxiety, Depression, PTSD Smoking Status: Former smoker Past Drug Use History: None Reported - Past Family History Brother(s) Family Medical History: Deep Vein Thrombosis (DVT) Medications and Allergies Home Medications Medication Instructions Recorded Confirmed Type Aspirin [Adult Low Dose Aspirin EC] 81 mg PO DAILY 09/02/17 12/28/21 History Omeprazole [PriLOSEC] 20 mg PO BID 09/02/17 12/28/21 History Sertraline HCl [Zoloft] 100 mg PO BID 09/02/17 12/28/21 History allopurinoL [Zyloprim] 100 mg PO BID 09/02/17 12/28/21 History Acetaminophen-Codeine 300-30mg 1 tab PO TID PRN 04/01/19 12/28/21 History [Tylenol w/codeine #3] Rosuvastatin Calcium [Crestor] 20 mg PO HS 08/20/19 12/28/21 History Albuterol Sulfate [Albuterol 2 puff INHALATION RT-QID PRN 12/27/20 12/28/21 History Sulfate Hfa] Apixaban [Eliquis] 5 mg PO BID 12/27/20 12/28/21 History Jevity 1.5 Jakob Liquid 3 can PO DAILY 12/27/20 12/28/21 History Metoprolol Succinate (ER) [Toprol 100 mg PO DAILY 12/27/20 12/28/21 History XL] Spironolactone 25 mg PO DAILY 12/27/20 12/28/21 History lisinopriL [Zestril] 2.5 mg PO DAILY 12/27/20 12/28/21 History Ipratropium-Albuterol Nebulize 3 ml INHALATION RT-QID 02/08/21 12/28/21 History [Duoneb 0.5 mg-3 mg/3 ml Soln] Mag-Ox 420mg 420 mg PO BID 02/08/21 12/28/21 History Furosemide [Lasix] 40 mg PO DAILY #30 07/23/21 12/28/21 Rx Thiamine [Vitamin B-1] 100 mg PO DAILY #30 tab 07/23/21 12/28/21 Rx acetaZOLAMIDE [Diamox] 125 mg PO BID 30 Days #60 tab 08/22/21 12/28/21 Rx Gabapentin [Neurontin] 800 mg PO TID 12/28/21 12/28/21 History Allergies Allergy/AdvReac Type Severity Reaction Status Date / Time fluticasone Allergy Dyspnea Verified 12/28/21 16:12 [From Wixela Inhub] metolazone [From Zaroxolyn] Allergy Rash/Hives Verified 12/28/21 16:12 salmeterol Allergy Dyspnea Verified 12/28/21 16:12 [From Wixela Inhub] warfarin [From Coumadin] Allergy Unknown Verified 12/28/21 16:12 fluvastatin AdvReac weakness/muscle Verified 12/28/21 16:12 pain simvastatin AdvReac muscle pain Verified 12/28/21 16:12 sulfamethoxazole AdvReac Abdominal Verified 12/28/21 16:12 [From Bactrim] Pain trimethoprim [From Bactrim] AdvReac Abdominal Verified 12/28/21 16:12 Pain Physical Exam Vitals: Vital Signs Temp Pulse Resp BP Pulse Ox 12/28/21 16:43 18 12/28/21 16:42 69 14 106/66 99 12/28/21 13:12 97.8 F 72 20 95/60 95 Intake and Output 12/28/21 12/28/21 12/28/21 06:59 14:59 22:59 Other: Weight 90.718 kg Results CBC & Chem 7: 12/28/21 14:04 12/28/21 16:29 Labs: Abnormal Lab Results - Last 24 Hours (Table) 12/28/21 12/28/21 Range/Units 14:04 14:04 RBC 4.26 L (4.30-5.90) m/uL MCV 100.2 H (80.0-100.0) fL RDW 15.6 H (11.5-15.5) % Plt Count 134 L (150-450) k/uL Lymphocytes # 0.9 L (1.0-4.8) k/uL Potassium 5.7 H (3.5-5.1) mmol/L BUN 40 H (9-20) mg/dL Creatinine 1.34 H (0.66-1.25) mg/dL AST 72 H (17-59) U/L
[2021-12-28] MEDS: PANTOPRAZOLE 40 MG TABLET PO SCH (18:36)
[2021-12-28] MEDS ORDERED: ATORVASTATIN 40 MG TAB PO SCH (21:00)
[2021-12-28] MEDS: APIXABAN 5 MG TAB PO SCH (21:27)
[2021-12-28] MEDS: allopurinoL 100 MG TAB PO SCH (21:27)
[2021-12-28] MEDS: GABAPENTIN 400 MG CAP PO SCH (21:27)
[2021-12-28] MEDS: SERTRALINE 100 MG TAB PO SCH (21:27)
[2021-12-28] MEDS: acetaZOLAMIDE 250 MG TAB PO SCH (21:28)
[2021-12-28 22:27] VITALS: RESP 17
[2021-12-28] MEDS ORDERED: ALBUTEROL HFA INHALER INHALATION PRN (22:40)
[2021-12-29 06:03] VITALS: BP 100/65; PULSE 70; TEMP 97.8
[2021-12-29] MEDS ORDERED: TIOTROPIUM 2.5 MCG INHALER INHALATION SCH (08:00)
[2021-12-29] MEDS ORDERED: NON FORMULARY DRUG (Jevity 1.5 Cal Liquid 1,000 ML Ml) PO SCH (09:00)
[2021-12-29] MEDS ORDERED: ASPIRIN 81 MG PO SCH (09:00)
[2021-12-29] MEDS ORDERED: FUROSEMIDE 40 MG TAB PO SCH (09:00)
[2021-12-29] MEDS ORDERED: METOPROLOL SUCCINATE (ER) 100 MG TAB.ER.24H PO SCH (09:00)
[2021-12-29] MEDS: SERTRALINE 100 MG TAB PO SCH (09:39)
[2021-12-29] MEDS: APIXABAN 5 MG TAB PO SCH (09:39)
[2021-12-29] MEDS: allopurinoL 100 MG TAB PO SCH (09:39)
[2021-12-29] MEDS: acetaZOLAMIDE 250 MG TAB PO SCH (09:39)
[2021-12-29] MEDS: PANTOPRAZOLE 40 MG TABLET PO SCH (09:40)
[2021-12-29] MEDS: GABAPENTIN 400 MG CAP PO SCH (09:40)
--- NOTE | 2021-12-29 10:09 | P.DS ---
Providers Date of admission: 12/28/21 16:06 Expected date of discharge: 12/29/21 Attending physician: Alea Beltran MD Primary care physician: [facility] Course: Patient is a 71-year-old male with PMH of CVA with right-sided residual weakness and PEG, atrial fibrillation, systolic CHF with EF of 20% and grade 2 diastolic dysfunction, COPD on 2 L home O2, hypertension, dyslipidemia, CAD the presence ED for shortness of breath. Patient was diagnosed with COVID-19 ED as well. Reports shortness of breath has been ongoing for the past 2 days. Breathing is worsened with exertion. He reports a dry cough. He reports poor appetite. He has no other complaints. He denies any headache, lower extremity edema, nausea vomiting, fever or chills, chest pain, palpitations, changes in urination or bowel habits. No changes in appetite or weight. He denies any dizziness, numbness/weakness as tingling of extremities. In the ED, his vital signs are stable. CBC showed MCV of 100.2. CMP showed potassium of 5.7, BUN 40, creatinine 1.34, AST of 72. BNP was 16,600 chest x-ray was negative. Patient is admitted for shortness of breath and hyperkalemia under observation status. His potassium of 5.7 was noted to be hemolyzed. All treatments were discontinued as ordered in the ED. Repeat potassium was 4.9. Repeat BMP from 12/29/2021 was pending at the time of this note. Patient did not require any increase in oxygen requirements during his hospitalization. He was asymptomatic with regard to his COVID-19 pneumonia. Patient was seen and examined on 12/29/2021. He reported feeling at baseline. His discharge was pending results of BMP. General: non toxic, no distress, appears at stated age Derm: warm, dry Head: atraumatic, normocephalic, symmetric Eyes: EOMI, no lid lag, anicteric sclera Mouth: no lip lesion, mucus membranes moist Cardiovascular: S1S2 reg, no murmur, positive posterior tibial pulse bilateral, Lungs: CTA bilateral, no rhonchi, no rales , no accessory muscle use Abdominal: soft, nontender to palpation, no guarding, PEG intact Ext: no gross muscle atrophy, no edema, no contractures Neuro: CN II-XI grossly intact, right upper and right lower extremity 4-5 strength, left upper and left lower extremity 5 out of 5 Psych: Alert, oriented, appropriate affect Discharge Diagnosis: #Dyspnea #Recent diagnosis of COVID-19 #Macrocytosis Resolved: Hyperkalemia Chronic conditions: CVA, atrial fibrillation, systolic CHF, COPD, hypertension, CKD Pertinent Studies: CXR Patient Condition at Discharge: Stable Plan - Discharge Summary Discharge Rx Participant: No New Discharge Prescriptions: Continue Sertraline HCl [Zoloft] 100 mg PO BID Omeprazole [PriLOSEC] 20 mg PO BID allopurinoL [Zyloprim] 100 mg PO BID Aspirin [Adult Low Dose Aspirin EC] 81 mg PO DAILY Acetaminophen-Codeine 300-30mg [Tylenol w/codeine #3] 1 tab PO TID PRN PRN Reason: Pain Rosuvastatin Calcium [Crestor] 20 mg PO HS Albuterol Sulfate [Albuterol Sulfate Hfa] 2 puff INHALATION RT-QID PRN PRN Reason: Shortness Of Breath Apixaban [Eliquis] 5 mg PO BID Jevity 1.5 Jakob Liquid 3 can PO DAILY Metoprolol Succinate (ER) [Toprol XL] 100 mg PO DAILY Ipratropium-Albuterol Nebulize [Duoneb 0.5 mg-3 mg/3 ml Soln] 3 ml INHALATION RT-QID Furosemide [Lasix] 40 mg PO DAILY #30 acetaZOLAMIDE [Diamox] 125 mg PO BID 30 Days #60 tab lisinopriL [Zestril] 2.5 mg PO DAILY Spironolactone 25 mg PO DAILY Mag-Ox 420mg 420 mg PO BID Thiamine [Vitamin B-1] 100 mg PO DAILY #30 tab Gabapentin [Neurontin] 800 mg PO TID Discharge Medication List Aspirin [Adult Low Dose Aspirin EC] 81 mg PO DAILY 09/02/17 [History] Omeprazole [PriLOSEC] 20 mg PO BID 09/02/17 [History] Sertraline HCl [Zoloft] 100 mg PO BID 09/02/17 [History] allopurinoL [Zyloprim] 100 mg PO BID 09/02/17 [History] Acetaminophen-Codeine 300-30mg [Tylenol w/codeine #3] 1 tab PO TID PRN 04/01/19 [History] Rosuvastatin Calcium [Crestor] 20 mg PO HS 08/20/19 [History] Albuterol Sulfate [Albuterol Sulfate Hfa] 2 puff INHALATION RT-QID PRN 12/27/20 [History] Apixaban [Eliquis] 5 mg PO BID 12/27/20 [History] Jevity 1.5 Jakob Liquid 3 can PO DAILY 12/27/20 [History] Metoprolol Succinate (ER) [Toprol XL] 100 mg PO DAILY 12/27/20 [History] Spironolactone 25 mg PO DAILY 12/27/20 [History] lisinopriL [Zestril] 2.5 mg PO DAILY 12/27/20 [History] Ipratropium-Albuterol Nebulize [Duoneb 0.5 mg-3 mg/3 ml Soln] 3 ml INHALATION RT-QID 02/08/21 [History] Mag-Ox 420mg 420 mg PO BID 02/08/21 [History] Furosemide [Lasix] 40 mg PO DAILY #30 07/23/21 [Rx] Thiamine [Vitamin B-1] 100 mg PO DAILY #30 tab 07/23/21 [Rx] acetaZOLAMIDE [Diamox] 125 mg PO BID 30 Days #60 tab 08/22/21 [Rx] Gabapentin [Neurontin] 800 mg PO TID 12/28/21 [History] Follow up Appointment(s)/Referral(s): [facility],Clinic [Primary Care Provider] - 1-2 days Activity/Diet/Wound Care/Special Instructions: Diet: Cardiac FU with PCP within 1-2 days of DC. Take all medications as advised. Come back to the ED for worsening SOB, chest pain, palpitations, lightheadedness. Discharge Disposition: HOME SELF-CARE
[2021-12-29 12:17] LABS: African American GFR (CKD) 48.8 (60.0-200.0); Anion Gap 12.2 mmol/L (10.00-18.00); BUN/Creat Ratio 20.88 Ratio (12.00-20.00); Blood Urea Nitrogen 33.4 mg/dL (9.0-27.0); Calcium 9.4 mg/dL (8.7-10.3); Carbon Dioxide 26.8 mmol/L (20.0-27.5); Non-African American GFR(CKD) 42.1 (60.0-200.0); Potassium 4.7 mmol/L (3.5-5.5)
== END 2021-12-29 13:19 | disposition home or self-care (01) ==
LOC: EC 13:07 → 4SSUR 16:06
PROVIDERS: ADMIT Internal Medicine; ATTEND Internal Medicine
DX: U07.1 COVID-19 (principal); J12.82 Pneumonia due to coronavirus disease 2019; E87.5 Hyperkalemia; R79.89 Other specified abnormal findings of blood chemistry; D75.89 Other specified diseases of blood and blood-forming organs; I48.91 Unspecified atrial fibrillation; I13.0 Hypertensive heart and chronic kidney disease with heart failure and stage 1 through stage 4 chronic kidney disease, or unspecified chronic kidney disease; I50.42 Chronic combined systolic (congestive) and diastolic (congestive) heart failure; N18.9 Chronic kidney disease, unspecified; J44.9 Chronic obstructive pulmonary disease, unspecified; E78.5 Hyperlipidemia, unspecified; G47.30 Sleep apnea, unspecified; I69.351 Hemiplegia and hemiparesis following cerebral infarction affecting right dominant side; I69.328 Other speech and language deficits following cerebral infarction; G62.9 Polyneuropathy, unspecified; F32.A Depression, unspecified; F43.10 Post-traumatic stress disorder, unspecified; I25.10 Atherosclerotic heart disease of native coronary artery without angina pectoris; Z87.891 Personal history of nicotine dependence; Z95.5 Presence of coronary angioplasty implant and graft; Z99.81 Dependence on supplemental oxygen; Z95.810 Presence of automatic (implantable) cardiac defibrillator; Z93.1 Gastrostomy status; Z79.82 Long term (current) use of aspirin; Z79.899 Other long term (current) drug therapy; Z79.01 Long term (current) use of anticoagulants; Z88.2 Allergy status to sulfonamides
CPT/HCPCS: 99285; 36415; 94640; 93005; 83880; 80053; 80048; 83735; 84132; 85025; 85610; 85730; 87635; 71046; G0378 ×2

== ENCOUNTER 2022-01-09 15:32 | Emergency (ER) | payer OTHER, MEDICARE ==
[2022-01-09 15:58] VITALS: RESP 16; TEMP 98.6
--- NOTE | 2022-01-09 17:58 | CT ---
EXAMINATION TYPE: CT brain wo con DATE OF EXAM: 01/09/2022 COMPARISON: 10/11/2021 HISTORY: HEADACHE ON BLOOD THINNERS CONFUSION CT DLP: 1230.3 mGycm Automated exposure control for dose reduction was used. There is a large area of hypodensity in the left cerebral hemisphere involving the temporal and parie josefina lobe consistent with old middle cerebral artery infarct. There is cerebral atrophy. There is no m idline shift. No sign of intracranial hemorrhage. The calvarium is intact. There is mucosal thickenin g right maxillary sinus. IMPRESSION: Old large left middle cerebral artery infarct without change. Cerebral atrophy. No acute intracranial abnormality.
[2022-01-09] MEDS ORDERED: KETOROLAC 15 MG/ML 1 ML VIAL IVP STA (18:32)
[2022-01-09] MEDS ORDERED: PROCHLORPERAZINE INJ 10 MG/2 ML VIAL IVP STA (18:32)
[2022-01-09] MEDS ORDERED: SODIUM CHLORIDE 0.9% 1,000 ML IV STA (18:32)
[2022-01-09] MEDS ORDERED: diphenhydrAMINE 50 MG/ML 1 ML VIAL IVP STA (18:32)
[2022-01-09 19:51] LABS: Calcium 9.6 mg/dL (8.4-10.2); Potassium 4.4 mmol/L (3.5-5.1)
[2022-01-09 20:12] LABS: Basophils % (A) 0 %; Eosinophils % (A) 0 %; HCT 41.6 % (39.0-53.0); HGB 13.3 gm/dL (13.0-17.5); Hypochromasia Slight; Lymphocytes # (A) 1.1 k/uL (1.0-4.8); Lymphocytes % (A) 14 %; MCH 31.6 pg (25.0-35.0); MCHC 31.9 g/dL (31.0-37.0); MCV 99.2 fL (80.0-100.0); Macrocytosis Slight; Mean Platelet Volume 10.9; Monocytes # (A) 0.5 k/uL (0-1.0); Monocytes % (A) 7 %; Neutrophils % (A) 76 %; Platelet Count 123 k/uL (150-450); RDW 15.7 % (11.5-15.5); WBC 7.9 k/uL (3.8-10.6)
[2022-01-09] MEDS ORDERED: LIDOCAINE 5% PATCH TOPICAL STA (20:35)
--- NOTE | 2022-01-09 20:37 | ED ---
General Adult HPI - General Chief complaint: Headache Stated complaint: neck pain Time Seen by Provider: 01/09/22 18:20 Source: patient, family, RN notes reviewed, old records reviewed Mode of arrival: wheelchair Limitations: no limitations - History of Present Illness Initial comments: Patient is a 71-year-old male with past medical history remarkable for atrial fibrillation on Coumadin, heart failure, COPD, history of CVA with residual aphasia who presents emergency Department complaining of neck pain as well as headache. States the pain radiates up bilateral sides of his neck into the posterior aspect of his head and discussing mild headache. Denies any nausea or vomiting. Denies any blurry vision. Denies this being the worst headache of his life. Patient is a difficult historian due to the aphasia. Does understand questioning. Difficult to convey responses. There is to denies chest pain or shortness of breath. Has no other acute complaints at this time. Patient's daughter is at bedside and corroborates the story. He is at his normal baseline mental status at this time. Patient presents for further evaluation. - Related Data Home Medications Medication Instructions Recorded Confirmed Aspirin [Adult Low Dose Aspirin EC] 81 mg PO DAILY 09/02/17 12/28/21 Omeprazole [PriLOSEC] 20 mg PO BID 09/02/17 12/28/21 Sertraline HCl [Zoloft] 100 mg PO BID 09/02/17 12/28/21 allopurinoL [Zyloprim] 100 mg PO BID 09/02/17 12/28/21 Acetaminophen-Codeine 300-30mg 1 tab PO TID PRN 04/01/19 12/28/21 [Tylenol w/codeine #3] Rosuvastatin Calcium [Crestor] 20 mg PO HS 08/20/19 12/28/21 Albuterol Sulfate [Albuterol 2 puff INHALATION RT-QID PRN 12/27/20 12/28/21 Sulfate Hfa] Apixaban [Eliquis] 5 mg PO BID 12/27/20 12/28/21 Jevity 1.5 Jakob Liquid 3 can PO DAILY 12/27/20 12/28/21 Metoprolol Succinate (ER) [Toprol 100 mg PO DAILY 12/27/20 12/28/21 XL] Spironolactone 25 mg PO DAILY 12/27/20 12/28/21 lisinopriL [Zestril] 2.5 mg PO DAILY 12/27/20 12/28/21 Ipratropium-Albuterol Nebulize 3 ml INHALATION RT-QID 02/08/21 12/28/21 [Duoneb 0.5 mg-3 mg/3 ml Soln] Mag-Ox 420mg 420 mg PO BID 02/08/21 12/28/21 Gabapentin [Neurontin] 800 mg PO TID 12/28/21 12/28/21 Previous Rx's Medication Instructions Recorded Furosemide [Lasix] 40 mg PO DAILY #30 07/23/21 Thiamine [Vitamin B-1] 100 mg PO DAILY #30 tab 07/23/21 acetaZOLAMIDE [Diamox] 125 mg PO BID 30 Days #60 tab 08/22/21 Lidocaine 5% Patch [Lidoderm 5% 1 each TP DAILY PRN 7 Days #7 patch 01/09/22 Patch] Allergies Allergy/AdvReac Type Severity Reaction Status Date / Time fluticasone Allergy Dyspnea Verified 01/09/22 15:58 [From Wixela Inhub] metolazone [From Zaroxolyn] Allergy Rash/Hives Verified 01/09/22 15:58 salmeterol Allergy Dyspnea Verified 01/09/22 15:58 [From Wixela Inhub] warfarin [From Coumadin] Allergy Unknown Verified 01/09/22 15:58 fluvastatin AdvReac weakness/muscle Verified 01/09/22 15:58 pain simvastatin AdvReac muscle pain Verified 01/09/22 15:58 sulfamethoxazole AdvReac Abdominal Verified 01/09/22 15:58 [From Bactrim] Pain trimethoprim [From Bactrim] AdvReac Abdominal Verified 01/09/22 15:58 Pain Review of Systems ROS Statement: Those systems with pertinent positive or pertinent negative responses have been documented in the HPI. Review of Systems: CONST: Denies fever EYES: Denies blurry vision ENT: Denies nasal congestion C/V: Denies Chest pain RESP: Denies shortness of breath GI: Denies abdominal pain : Denies dysuria SKIN: Denies rash. MSK: Denies joint pain. NEURO: Endorses headache ROS Other: All systems not noted in ROS Statement are negative. 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 sided weakness,cataracts, bruises easily due to coumadin,does not wear cpap,neuropathy moe. feet History of Any Multi-Drug Resistant Organisms: None Reported Past Surgical History: AICD, Heart Catheterization With Stent Additional Past Surgical History / Comment(s): AICD/Pacemaker, PEG tube placed in [address] Anglin in 2019 Past Anesthesia/Blood Transfusion Reactions: No Reported Reaction Date of Last Stent Placement:: unk Type of Cardiac Device: AICD Device Placement Date:: 2009 Past Psychological History: Anxiety, Depression, PTSD Smoking Status: Former smoker Past Drug Use History: None Reported - Past Family History Brother(s) Family Medical History: Deep Vein Thrombosis (DVT) General Exam - General Exam Comments Initial Comments: General: Appears in no acute distress. HEAD: Normal with no signs of head trauma. EYES: PERRLA, EOMI, conjunctiva normal, no discharge. Pupils 3 mm and equal bilaterally. ENT: Hearing grossly intact, normal oropharynx. RESPIRATORY: Clear breath sounds bilaterally. No wheezes, rales, or rhonchi. C/V: Regular rate and rhythm. S1 and S2 auscultated, no edema, peripheral pulses 2+ and intact throughout ABD: Abd is soft, nontender, nondistended EXT: Bilateral trapezius muscles tenderness to palpation radiating up to the base of the skull. No midline cervical spine tenderness to palpation. No midline thoracic spine tenderness to palpation. No obvious deformities. SKIN: No rashes or lesions observed on exposed skin. NEURO: Alert. Oriented 2-3 which is his baseline. Ambulates with a walker/cane at baseline. No focal neurological deficits. At Neurological baseline per daughter who is at bedside. Limitations: no limitations Course Vital Signs 01/09/22 01/09/22 15:54 21:39 Temperature 98.6 F Pulse Rate 70 72 Respiratory 16 16 Rate Blood Pressure 110/69 115/70 O2 Sat by Pulse 95 97 Oximetry Medical Decision Making - Medical Decision Making Based on the patient's presentation and physical exam, I'm concerned for what appears to be a neck muscle strain causing headache, but cannot rule out other etiology at this time. CT brain was already obtained while the patient was triaged. Vital signs within normal limits. Patiently symptomatic that she with a migraine cocktail. Patient as well as his family member were in agreement this plan. Did recommend we obtain basic laboratory studies, the patient is a poor historian and for any obvious abnormality's. They were in agreement this plan. CT brain which was already obtained and results returned showing old large left middle cerebral artery infarct without change. No acute intracranial process. Laboratory studies were unremarkable. She does have an elevated BUN/creatinine with a history of CK D appears to be at his baseline. Covid is negative. Urinalysis still pending at this time. After the patient as well as his family member. I discussed waiting for urine study, and they've refused at this time. He is due to follow-up with his PCP this week. We'll obtain urine studies done if there is concern. I believe this is reasonable. Vital signs remained within normal limits. Patient's headache is resolved. Neck pain is resolved. He'll be discharged home at this time. We discussed the likely experiencing musculoskeletal pain with the cause of his symptoms. Vital signs remained within normal limits. I will provide the patient with a prescription for lidocaine patche. I instructed the patient to follow up with their PCP in the next 1-3 days. I explained that the patient should return to the emergency department if they experience any worsening symptoms. Strict return precautions were discussed with the patient. The patient expressed understanding of these instructions. I answered all questions that the patient had. The patient was discharged home in good condition with their prescriptions and follow up information. - Lab Data Result diagrams: 01/09/22 18:59 01/09/22 18:59 Lab Results 01/09/22 01/09/22 01/09/22 Range/Units 18:07 18:59 18:59 WBC 7.9 (3.8-10.6) k/uL RBC 4.20 L (4.30-5.90) m/uL Hgb 13.3 (13.0-17.5) gm/dL Hct 41.6 (39.0-53.0) % MCV 99.2 (80.0-100.0) fL MCH 31.6 (25.0-35.0) pg MCHC 31.9 (31.0-37.0) g/dL RDW 15.7 H (11.5-15.5) % Plt Count 123 L (150-450) k/uL MPV 10.9 Neutrophils % 76 % Lymphocytes % 14 % Monocytes % 7 % Eosinophils % 0 % Basophils % 0 % Neutrophils # 6.0 (1.3-7.7) k/uL Lymphocytes # 1.1 (1.0-4.8) k/uL Monocytes # 0.5 (0-1.0) k/uL Eosinophils # 0.0 (0-0.7) k/uL Basophils # 0.0 (0-0.2) k/uL Hypochromasia Slight Macrocytosis Slight Sodium 136 L (137-145) mmol/L Potassium 4.4 (3.5-5.1) mmol/L Chloride 94 L (98-107) mmol/L Carbon Dioxide 28 (22-30) mmol/L Anion Gap 14 mmol/L BUN 53 H (9-20) mg/dL Creatinine 1.57 H (0.66-1.25) mg/dL Est GFR (CKD-EPI)AfAm 50 (>60 ml/min/1.73 sqM) Est GFR (CKD-EPI)NonAf 43 (>60 ml/min/1.73 sqM) Glucose 97 (74-99) mg/dL Calcium 9.6 (8.4-10.2) mg/dL Coronavirus (PCR) Not Detected (Not Detectd) Disposition Clinical Impression: Cervicalgia, Headache, Muscle strain Disposition: HOME SELF-CARE Condition: Good Instructions (If sedation given, give patient instructions): Acute Headache (ED) Prescriptions: Lidocaine 5% Patch [Lidoderm 5% Patch] 1 each TP DAILY PRN 7 Days #7 patch PRN Reason: Pain Is patient prescribed a controlled substance at d/c from ED?: No Referrals: [facility],Clinic [Primary Care Provider] - 1-2 days Time of Disposition: 20:25
[2022-01-09 21:41] VITALS: BP 115/70; PULSE 72
== END 2022-01-09 21:30 | disposition home or self-care (01) ==
LOC: EC 15:32
DX: M54.2 Cervicalgia (principal); R51.9 Headache, unspecified; E78.5 Hyperlipidemia, unspecified; I10 Essential (primary) hypertension; Z79.899 Other long term (current) drug therapy; Z87.891 Personal history of nicotine dependence; Z88.8 Allergy status to other drugs, medicaments and biological substances; Z88.6 Allergy status to analgesic agent; Z88.2 Allergy status to sulfonamides; Z88.1 Allergy status to other antibiotic agents
CPT/HCPCS: 99285; 96374; 96375; 96361; 36415; 80048; 85025; 87635; 70450; J1200; J0780; J1885

== ENCOUNTER 2022-02-15 12:48 | Inpatient (IN) | payer OTHER, MEDICARE ==
[2022-02-15 14:34] LABS: Albumin 4.2 g/dL (3.5-5.0); Calcium 8.6 mg/dL (8.4-10.2); Partial Thromboplastin Time 27.7 sec (22.0-30.0); Total Protein 7.5 g/dL (6.3-8.2)
[2022-02-15 14:35] LABS: Basophils % (A) 1 %; Eosinophils # (A) 0.1 k/uL (0-0.7); Eosinophils % (A) 2 %; HCT 38.8 % (39.0-53.0); HGB 12.2 gm/dL (13.0-17.5); Hypochromasia Marked; Lymphocytes # (A) 0.7 k/uL (1.0-4.8); Lymphocytes % (A) 15 %; MCH 31.4 pg (25.0-35.0); MCHC 31.5 g/dL (31.0-37.0); MCV 99.9 fL (80.0-100.0); Macrocytosis Slight; Mean Platelet Volume 11.4; Monocytes # (A) 0.4 k/uL (0-1.0); Monocytes % (A) 7 %; Neutrophils # (A) 3.8 k/uL (1.3-7.7); Neutrophils % (A) 74 %; Platelet Count 108 k/uL (150-450); RBC 3.88 m/uL (4.30-5.90); RDW 15.8 % (11.5-15.5); WBC 5.1 k/uL (3.8-10.6)
[2022-02-15 14:49] LABS: Potassium 6.1 mmol/L (3.5-5.1)
--- NOTE | 2022-02-15 14:58 | XR ---
EXAMINATION TYPE: XR chest 2V DATE OF EXAM: 02/15/2022 2:51 PM COMPARISON: Chest radiographs from 12/28/2021. TECHNIQUE: XR chest 2V Frontal and lateral views of the chest. CLINICAL INDICATION:Male, 71 years old with history of shortness of breath; FINDINGS: Lungs/Pleura: No pneumothorax. Right basilar patchy airspace opacity only demonstrated on the frontal view . Trace right pleural effusion. Scattered senescent parenchymal changes. Pulmonary vascularity: Unremarkable. Heart/mediastinum: Cardiomediastinal silhouette is enlarged and stable. Atherosclerotic calcificatio ns are seen in the aorta. Two lead cardiac conduction device overlying the left hemithorax with lead tips projecting over the right ventricle and right atrium. Musculoskeletal: Multiple level degenerative disc disease changes seen throughout the spine. IMPRESSION: 1. Right basilar patchy airspace disease which may represent infiltrate versus atelectasis. 2. Trace right pleural effusion. 3. Cardiomegaly redemonstrated.
[2022-02-15] MEDS ORDERED: IPRATROPIUM-ALBUTEROL 3 ML NEB INHALATION STA (15:05)
[2022-02-15] MEDS ORDERED: DEXTROSE 50% SYRINGE 50 ML IVP ONE (15:05)
[2022-02-15] MEDS ORDERED: ALBUTEROL NEB (CONC) 2.5 MG/0.5 ML INHALATION ONE (15:05)
[2022-02-15] MEDS ORDERED: CALCIUM GLUCONATE IN NACL 1 GM in SALINE 1 100ML.BAG IVPB ONE (15:05)
[2022-02-15] MEDS ORDERED: INSULIN REGULAR 100 UNIT/ML VIAL (IV) IV ONE (15:05)
[2022-02-15] MEDS ORDERED: methylPREDNISolone SOD SUCCI 125 MG/2 ML VIAL IV STA (15:05)
[2022-02-15] MEDS ORDERED: LEVOFLOXACIN 500MG-D5W PMX 500 MG in DEXTROSE/WATER 1 100ML.BAG IVPB STA (15:12)
[2022-02-15] MEDS ORDERED: NALOXONE 0.4 MG/ML 1 ML VIAL IV PRN (16:08)
[2022-02-15] MEDS ORDERED: ACETAMINOPHEN TAB 325 MG TAB PO PRN (16:08)
--- NOTE | 2022-02-15 16:11 | ED ---
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 Believes he had an aspiration event approximately one week ago. Has been having worsening cough, shortness of breath since. Presents for further evaluation at this time. States he is coughing up yellowish sputum. Denies fevers. Denies chest pain. Denies any abdominal pain, nausea, vomiting. Was evaluated at urgent care prior to evaluation here, was transferred here for further evaluation. Denies any other acute complaints at this time. Presents for further evaluation of a concern for possible pneumonia. - Related Data Home Medications Medication Instructions Recorded Confirmed Aspirin [Adult Low Dose Aspirin EC] 81 mg PO DAILY 09/02/17 02/15/22 Omeprazole [PriLOSEC] 20 mg PO BID 09/02/17 02/15/22 Sertraline HCl [Zoloft] 100 mg PO BID 09/02/17 02/15/22 allopurinoL [Zyloprim] 100 mg PO BID 09/02/17 02/15/22 Acetaminophen-Codeine 300-30mg 1 tab PO TID PRN 04/01/19 02/15/22 [Tylenol w/codeine #3] Rosuvastatin Calcium [Crestor] 20 mg PO HS 08/20/19 02/15/22 Albuterol Sulfate [Albuterol 2 puff INHALATION RT-QID PRN 12/27/20 02/15/22 Sulfate Hfa] Apixaban [Eliquis] 5 mg PO BID 12/27/20 02/15/22 Jevity 1.5 Jakob Liquid 3 can PO DAILY 12/27/20 02/15/22 Metoprolol Succinate (ER) [Toprol 100 mg PO DAILY 12/27/20 02/15/22 XL] Spironolactone 25 mg PO DAILY 12/27/20 02/15/22 lisinopriL [Zestril] 2.5 mg PO DAILY 12/27/20 02/15/22 Ipratropium-Albuterol Nebulize 3 ml INHALATION RT-QID PRN 02/08/21 02/15/22 [Duoneb 0.5 mg-3 mg/3 ml Soln] Mag-Ox 420mg 420 mg PO BID 02/08/21 02/15/22 Gabapentin [Neurontin] 800 mg PO TID 12/28/21 02/15/22 Furosemide [Lasix] 40 mg PO DAILY 02/15/22 02/15/22 Allergies Allergy/AdvReac Type Severity Reaction Status Date / Time metolazone [From Zaroxolyn] Allergy Rash/Hives Verified 02/15/22 16:26 warfarin [From Coumadin] Allergy Unknown - Verified 02/15/22 16:26 [facility] fluticasone AdvReac Dyspnea Verified 02/15/22 16:26 [From Wixela Inhub] fluvastatin AdvReac weakness/muscle Verified 02/15/22 16:26 pain rosuvastatin [From Crestor] AdvReac muscle pain Verified 02/15/22 16:26 salmeterol AdvReac Dyspnea Verified 02/15/22 16:26 [From Wixela Inhub] simvastatin AdvReac muscle pain Verified 02/15/22 16:26 sulfamethoxazole AdvReac Abdominal Verified 02/15/22 16:26 [From Bactrim] Pain trimethoprim [From Bactrim] AdvReac Abdominal Verified 02/15/22 16:26 Pain Review of Systems ROS Statement: Those systems with pertinent positive or pertinent negative responses have been documented in the HPI. Review of Systems: CONST: Denies fever EYES: Denies blurry vision ENT: Denies nasal congestion C/V: Denies Chest pain RESP: Endorses shortness of breath GI: Denies abdominal pain : Denies dysuria SKIN: Denies rash. MSK: Denies joint pain. NEURO: Denies headache ROS Other: All systems not noted in ROS Statement are negative. 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 sided weakness,cataracts, bruises easily due to coumadin,does not wear cpap,neuropathy moe. feet History of Any Multi-Drug Resistant Organisms: None Reported Past Surgical History: AICD, Heart Catheterization With Stent Additional Past Surgical History / Comment(s): AICD/Pacemaker, PEG tube placed in [address] Anglin in 2019 Past Anesthesia/Blood Transfusion Reactions: No Reported Reaction Date of Last Stent Placement:: unk Type of Cardiac Device: AICD Device Placement Date:: 2009 Past Psychological History: Anxiety, Depression, PTSD Smoking Status: Former smoker Past Alcohol Use History: None Reported Past Drug Use History: None Reported - Past Family History Brother(s) Family Medical History: Deep Vein Thrombosis (DVT) General Exam - General Exam Comments Initial Comments: General: Appears in no acute distress. HEAD: Normal with no signs of head trauma. EYES: PERRLA, EOMI, conjunctiva normal, no discharge. ENT: Hearing grossly intact, normal oropharynx. RESPIRATORY: Bilateral end expiratory wheezing, rhonchorous breath sounds in the right lower lobe. Hypoxic on room air which is expected, normal 4 L nasal cannula patient is saturating 92%. No increased work of breathing at this time. C/V: Regular rate and rhythm. S1 and S2 auscultated, no peripheral edema, peripheral pulses 2+ and intact throughout ABD: Abd is soft, nontender, nondistended EXT: Normal range of motion, no obvious deformity SKIN: No rashes or lesions observed on exposed skin. NEURO: Alert and oriented 4. No acute focal deficits. Course Vital Signs 02/15/22 02/15/22 02/15/22 13:39 14:52 15:29 Temperature 97.9 F 98 F Pulse Rate 82 71 70 Respiratory 18 18 Rate Blood Pressure 90/63 109/74 O2 Sat by Pulse 88 L 92 L Oximetry 02/15/22 02/15/22 02/15/22 15:53 15:54 17:29 Temperature Pulse Rate 70 70 72 Respiratory 18 Rate Blood Pressure 103/73 O2 Sat by Pulse 98 Oximetry 02/15/22 19:00 Temperature Pulse Rate 75 Respiratory 17 Rate Blood Pressure 109/74 O2 Sat by Pulse 97 Oximetry Medical Decision Making - Medical Decision Making Based on the patient's presentation and physical exam, I'm concerned for possible aspiration pneumonia and the patient. Also appears to be having a COPD exacerbation at this time. Vital signs within acceptable limits. We will obtain a cardiopulmonary workup. He was in agreement with this plan. Chest x- ray, Covid and flu swabs also be obtained. He'll be symptomatically treated with IV steroids as well as breathing treatments. Patient was in agreement this plan. EKG showed no signs of acute ischemia. His chest x-ray as interpreted by myself shows a right lower lobe pneumonia, in addition to possible right pleural effusion. No acute bony traumatic process. No pneumothorax. Patient's laboratory studies are remarkable for a chronic anemia with a hemoglobin of 12.2. Patient has an acute hyperkalemia of 6.1 with no EKG changes. Patient has CK D and appears to be at his baseline. Troponin is indeterminate which is chronic for the patient. Covid and influenza negative. I discussed results with the patient and family. I would like to admit him for aspiration pneumonia as well as his hyperkalemia. He will receive a hyper K cocktail including albuterol, calcium gluconate, dextrose, insulin. We will monitor his potassium levels. He'll be started on levofloxacin for his suspected aspiration pneumonia. We will continue IV steroids, breathing treatments. He was in agreement this plan. I spoke with the admitting physician, Dr. Zurita who accepted the patient. Patient was admitted in stable condition. - Lab Data Result diagrams: 02/15/22 13:51 02/15/22 18:07 Lab Results 02/15/22 02/15/22 02/15/22 Range/Units 13:51 13:51 13:51 WBC 5.1 (3.8-10.6) k/uL RBC 3.88 L (4.30-5.90) m/uL Hgb 12.2 L (13.0-17.5) gm/dL Hct 38.8 L (39.0-53.0) % MCV 99.9 (80.0-100.0) fL MCH 31.4 (25.0-35.0) pg MCHC 31.5 (31.0-37.0) g/dL RDW 15.8 H (11.5-15.5) % Plt Count 108 L (150-450) k/uL MPV 11.4 Neutrophils % 74 % Lymphocytes % 15 % Monocytes % 7 % Eosinophils % 2 % Basophils % 1 % Neutrophils # 3.8 (1.3-7.7) k/uL Lymphocytes # 0.7 L (1.0-4.8) k/uL Monocytes # 0.4 (0-1.0) k/uL Eosinophils # 0.1 (0-0.7) k/uL Basophils # 0.0 (0-0.2) k/uL Hypochromasia Marked Macrocytosis Slight PT (9.0-12.0) sec INR (<1.2) APTT (22.0-30.0) sec Sodium 137 (137-145) mmol/L Potassium 6.1 H* (3.5-5.1) mmol/L Chloride 96 L (98-107) mmol/L Carbon Dioxide 34 H (22-30) mmol/L Anion Gap 7 mmol/L BUN 67 H (9-20) mg/dL Creatinine 1.45 H (0.66-1.25) mg/dL Est GFR (CKD-EPI)AfAm 55 (>60 ml/min/1.73 sqM) Est GFR (CKD-EPI)NonAf 47 (>60 ml/min/1.73 sqM) Glucose 94 (74-99) mg/dL Plasma Lactic Acid Marlon (0.7-2.0) mmol/L Calcium 8.6 (8.4-10.2) mg/dL Total Bilirubin 1.0 (0.2-1.3) mg/dL AST 74 H (17-59) U/L ALT 45 (4-49) U/L Alkaline Phosphatase 143 H (38-126) U/L Troponin I 0.024 (0.000-0.034) ng/mL NT-Pro-B Natriuret Pep pg/mL Total Protein 7.5 (6.3-8.2) g/dL Albumin 4.2 (3.5-5.0) g/dL Coronavirus (PCR) (Not Detectd) Influenza Type A RNA (Not Detectd) Influenza Type B (PCR) (Not Detectd) 02/15/22 02/15/22 02/15/22 Range/Units 13:51 13:51 13:51 WBC (3.8-10.6) k/uL RBC (4.30-5.90) m/uL Hgb (13.0-17.5) gm/dL Hct (39.0-53.0) % MCV (80.0-100.0) fL MCH (25.0-35.0) pg MCHC (31.0-37.0) g/dL RDW (11.5-15.5) % Plt Count (150-450) k/uL MPV Neutrophils % % Lymphocytes % % Monocytes % % Eosinophils % % Basophils % % Neutrophils # (1.3-7.7) k/uL Lymphocytes # (1.0-4.8) k/uL Monocytes # (0-1.0) k/uL Eosinophils # (0-0.7) k/uL Basophils # (0-0.2) k/uL Hypochromasia Macrocytosis PT 11.0 (9.0-12.0) sec INR 1.0 (<1.2) APTT 27.7 (22.0-30.0) sec Sodium (137-145) mmol/L Potassium (3.5-5.1) mmol/L Chloride (98-107) mmol/L Carbon Dioxide (22-30) mmol/L Anion Gap mmol/L BUN (9-20) mg/dL Creatinine (0.66-1.25) mg/dL Est GFR (CKD-EPI)AfAm (>60 ml/min/1.73 sqM) Est GFR (CKD-EPI)NonAf (>60 ml/min/1.73 sqM) Glucose (74-99) mg/dL Plasma Lactic Acid Marlon 1.4 (0.7-2.0) mmol/L Calcium (8.4-10.2) mg/dL Total Bilirubin (0.2-1.3) mg/dL AST (17-59) U/L ALT (4-49) U/L Alkaline Phosphatase (38-126) U/L Troponin I (0.000-0.034) ng/mL NT-Pro-B Natriuret Pep 61161 pg/mL Total Protein (6.3-8.2) g/dL Albumin (3.5-5.0) g/dL Coronavirus (PCR) (Not Detectd) Influenza Type A RNA (Not Detectd) Influenza Type B (PCR) (Not Detectd) 02/15/22 02/15/22 Range/Units 14:46 14:46 WBC (3.8-10.6) k/uL RBC (4.30-5.90) m/uL Hgb (13.0-17.5) gm/dL Hct (39.0-53.0) % MCV (80.0-100.0) fL MCH (25.0-35.0) pg MCHC (31.0-37.0) g/dL RDW (11.5-15.5) % Plt Count (150-450) k/uL MPV Neutrophils % % Lymphocytes % % Monocytes % % Eosinophils % % Basophils % % Neutrophils # (1.3-7.7) k/uL Lymphocytes # (1.0-4.8) k/uL Monocytes # (0-1.0) k/uL Eosinophils # (0-0.7) k/uL Basophils # (0-0.2) k/uL Hypochromasia Macrocytosis PT (9.0-12.0) sec INR (<1.2) APTT (22.0-30.0) sec Sodium (137-145) mmol/L Potassium (3.5-5.1) mmol/L Chloride (98-107) mmol/L Carbon Dioxide (22-30) mmol/L Anion Gap mmol/L BUN (9-20) mg/dL Creatinine (0.66-1.25) mg/dL Est GFR (CKD-EPI)AfAm (>60 ml/min/1.73 sqM) Est GFR (CKD-EPI)NonAf (>60 ml/min/1.73 sqM) Glucose (74-99) mg/dL Plasma Lactic Acid Marlon (0.7-2.0) mmol/L Calcium (8.4-10.2) mg/dL Total Bilirubin (0.2-1.3) mg/dL AST (17-59) U/L ALT (4-49) U/L Alkaline Phosphatase (38-126) U/L Troponin I (0.000-0.034) ng/mL NT-Pro-B Natriuret Pep pg/mL Total Protein (6.3-8.2) g/dL Albumin (3.5-5.0) g/dL Coronavirus (PCR) Not Detected (Not Detectd) Influenza Type A RNA Not Detected (Not Detectd) Influenza Type B (PCR) Not Detected (Not Detectd) - EKG Data -: EKG Interpreted by Me EKG Comments: 12-lead Electrocardiogram Interpretation Note EKG was reviewed and interpreted by myself. 12-lead ECG performed at 1351 is interpreted by me as revealing ventricular paced rhythm at a rate of at 71 beats per minute. Left axis deviation. NE interval is unobtainable, QRS duration is 173 ms, QTc is 477 ms. The morphology seen on prior EKGs.. There were no acute ST or T wave abnormalities to suggest myocardial ischemia or injury. R wave progression across the precordium was satisfactory. By my interpretation this EKG is non-diagnostic for acute ischemia. When compared with EKG from September 2021, no significant change. Disposition Clinical Impression: Aspiration pneumonia, COPD exacerbation, Hyperkalemia Disposition: ADMITTED IP TO THIS HOSP Condition: Stable Time of Disposition: 16:00
[2022-02-15] MEDS ORDERED: ASPIRIN 81 MG PO STA (16:27)
[2022-02-15] MEDS ORDERED: Acetaminophen-Codeine 300-30mg TAB PO PRN (16:46)
--- NOTE | 2022-02-15 17:07 | P.HPIM ---
History of Present Illness H&P Date: 02/15/22 Chief Complaint: Aspiration pneumonia Patient is a 71-year-old male with a past medical history of congestive systolic heart failure with an EF of less than 20%, COPD on 3 L nasal cannula, atrial fibrillation, CVA with expressive aphasia and with dysphagia s/p PEG, hyperlipidemia, hypertension who presents to the ED with shortness of breath that has been ongoing for weeks. There is no family at bedside and it is difficult to understand the patient due to his expressive aphasia. I also attempted to call patient's significant other however she did not answer her phone. I was told by the ED physician that patient had an aspiration episode about a week ago and since then he has been having worsening shortness of breath. Patient does have a PEG tube and he states that he receives tube feeds twice a day and he also states that he eats food very slowly and small bites. In the ED patient was afebrile and satting well on 4 L nasal cannula. His WBC count was 5.1. His potassium was 6.1. His creatinine is 1.45 which is his baseline. Chest x-ray showed right basilar patchy airspace disease and trace right pleural effusion and cardiomegaly. Patient admitted for aspiration pneumonia and hyperkalemia Review of Systems 10 ROS reviewed and are negative except as noted in HPI Past Medical History Past Medical History: Atrial Fibrillation, Heart Failure, COPD, CVA/TIA, Eye Disorder, Hearing Disorder / Deafness, Hyperlipidemia, Hypertension, Skin Disorder, Sleep Apnea/CPAP/BIPAP Additional Past Medical History / Comment(s): CVA approx 2009-speech affected and slight rt. sided weakness,cataracts, bruises easily due to coumadin,does not wear cpap,neuropathy moe. feet History of Any Multi-Drug Resistant Organisms: None Reported Past Surgical History: AICD, Heart Catheterization With Stent Additional Past Surgical History / Comment(s): AICD/Pacemaker, PEG tube placed in [address] Anglin in 2019 Past Anesthesia/Blood Transfusion Reactions: No Reported Reaction Date of Last Stent Placement:: unk Type of Cardiac Device: AICD Device Placement Date:: 2009 Past Psychological History: Anxiety, Depression, PTSD Smoking Status: Former smoker Past Alcohol Use History: None Reported Past Drug Use History: None Reported - Past Family History Brother(s) Family Medical History: Deep Vein Thrombosis (DVT) Medications and Allergies Home Medications Medication Instructions Recorded Confirmed Type Aspirin [Adult Low Dose Aspirin EC] 81 mg PO DAILY 09/02/17 02/15/22 History Omeprazole [PriLOSEC] 20 mg PO BID 09/02/17 02/15/22 History Sertraline HCl [Zoloft] 100 mg PO BID 09/02/17 02/15/22 History allopurinoL [Zyloprim] 100 mg PO BID 09/02/17 02/15/22 History Acetaminophen-Codeine 300-30mg 1 tab PO TID PRN 04/01/19 02/15/22 History [Tylenol w/codeine #3] Rosuvastatin Calcium [Crestor] 20 mg PO HS 08/20/19 02/15/22 History Albuterol Sulfate [Albuterol 2 puff INHALATION RT-QID PRN 12/27/20 02/15/22 History Sulfate Hfa] Apixaban [Eliquis] 5 mg PO BID 12/27/20 02/15/22 History Jevity 1.5 Jakob Liquid 3 can PO DAILY 12/27/20 02/15/22 History Metoprolol Succinate (ER) [Toprol 100 mg PO DAILY 12/27/20 02/15/22 History XL] Spironolactone 25 mg PO DAILY 12/27/20 02/15/22 History lisinopriL [Zestril] 2.5 mg PO DAILY 12/27/20 02/15/22 History Ipratropium-Albuterol Nebulize 3 ml INHALATION RT-QID PRN 02/08/21 02/15/22 History [Duoneb 0.5 mg-3 mg/3 ml Soln] Mag-Ox 420mg 420 mg PO BID 02/08/21 02/15/22 History Gabapentin [Neurontin] 800 mg PO TID 12/28/21 02/15/22 History Furosemide [Lasix] 40 mg PO DAILY 02/15/22 02/15/22 History Allergies Allergy/AdvReac Type Severity Reaction Status Date / Time metolazone [From Zaroxolyn] Allergy Rash/Hives Verified 02/15/22 16:26 warfarin [From Coumadin] Allergy Unknown - Verified 02/15/22 16:26 [facility] fluticasone AdvReac Dyspnea Verified 02/15/22 16:26 [From Wixela Inhub] fluvastatin AdvReac weakness/muscle Verified 02/15/22 16:26 pain rosuvastatin [From Crestor] AdvReac muscle pain Verified 02/15/22 16:26 salmeterol AdvReac Dyspnea Verified 02/15/22 16:26 [From Wixela Inhub] simvastatin AdvReac muscle pain Verified 02/15/22 16:26 sulfamethoxazole AdvReac Abdominal Verified 02/15/22 16:26 [From Bactrim] Pain trimethoprim [From Bactrim] AdvReac Abdominal Verified 02/15/22 16:26 Pain Physical Exam Osteopathic Statement: *. No significant issues noted on an osteopathic structural exam other than those noted in the History and Physical/Consult. Vitals: Vital Signs Temp Pulse Resp BP Pulse Ox 02/15/22 15:54 70 02/15/22 15:53 70 02/15/22 15:29 70 02/15/22 14:52 98 F 71 18 109/74 92 L 02/15/22 13:39 97.9 F 82 18 90/63 88 L Intake and Output 02/15/22 02/15/22 02/15/22 06:59 14:59 22:59 Other: Weight 92.079 kg General: [Alert and oriented, well nourished, no acute distress, appears chronically debilitated]. Eye: [PERRL, EOMI, normal conjunctiva]. HENT: [Normocephalic, clear tympanic membranes, normal hearing, moist oral mucosa, no scleral icterus, no sinus tenderness]. Neck: [Supple, non-tender, no carotid bruits, no JVD, no lymphadenopathy]. Lungs: [Diffuse wheezing, non-labored respiration]. Heart: [Normal rate, regular rhythm, no murmur, gallop or edema]. Abdomen: [Soft, non-tender, non-distended, normal bowel sounds, no masses, PEG tube]. Musculoskeletal: [Normal range of motion and strength, no tenderness or swelling]. Skin: [Skin is warm, dry and pink, no rashes or lesions]. Neurologic: [Expressive aphasia, CN II-XII intact]. Psychiatric: [Cooperative, appropriate mood and affect]. Results CBC & Chem 7: 02/15/22 13:51 02/15/22 13:51 Labs: Abnormal Lab Results - Last 24 Hours (Table) 02/15/22 02/15/22 Range/Units 13:51 13:51 RBC 3.88 L (4.30-5.90) m/uL Hgb 12.2 L (13.0-17.5) gm/dL Hct 38.8 L (39.0-53.0) % RDW 15.8 H (11.5-15.5) % Plt Count 108 L (150-450) k/uL Lymphocytes # 0.7 L (1.0-4.8) k/uL Potassium 6.1 H* (3.5-5.1) mmol/L Chloride 96 L (98-107) mmol/L Carbon Dioxide 34 H (22-30) mmol/L BUN 67 H (9-20) mg/dL Creatinine 1.45 H (0.66-1.25) mg/dL AST 74 H (17-59) U/L Alkaline Phosphatase 143 H (38-126) U/L Assessment and Plan Assessment: Aspiration pneumonia On admission patient's temperature is 90.8 pulse is 71 respirations 18 and blood pressure 109/74. WBC count is 5.1 and there are no bands. Patient does not meet sepsis criteria Consults speech eval Keep patient nothing by mouth We'll resume his tube feeds -> I ordered Jevity 1.5, 3 times a day. Dietitian to adjust We'll start Zosyn Check pro-calcitonin Follow up on blood culture Obtain sputum culture possible COPD exacerbation Patient is on 3 L at home. He is currently satting well on 4 L. Titrate down O2 Resume IV Solu-Medrol and breathing treatments Antibiotics as above Hyperkalemia We'll repeat potassium to rule out hemolysis Patient was given Kayexalate, D50 amp and insulin Hold spironolactone and lisinopril Congestive systolic heart failure with an EF less than 20% Patient appears compensated Resume home dose Lasix Holding spironolactone and lisinopril due to hyperkalemia Resume metoprolol Atrial fibrillation Resume metoprolol and Elocon was History of CVA with dysphagia and with PEG tube and also expressive aphasia Resume aspirin and statin Hyperlipidemia Resume statin Hypertension resume BP meds and monitor blood pressure Gout Resume allopurinol CODE STATUS:full code DVT prophylaxis: Bandar Discussed with: Patient, ER, rn Anticipated length of stay > than [address]: home A total of 50 minutes was spent on the care of this complex patient more than 50% of the time was spent in counseling and care coordination.
[2022-02-15] MEDS: PIPERACILLIN-TAZOBACTAM 3.375 GM in SODIUM CHLORIDE 0.9% 100 ML IVPB SCH (18:59)
[2022-02-15] MEDS: IPRATROPIUM-ALBUTEROL 3 ML NEB INHALATION SCH (19:35)
[2022-02-15] MEDS: methylPREDNISolone SOD SUCCI 40 MG/ML 1 ML VIAL IV SCH (21:21)
[2022-02-15] MEDS: allopurinoL 100 MG TAB PO SCH (21:21)
[2022-02-15] MEDS: ATORVASTATIN 40 MG TAB PO SCH (21:21)
[2022-02-15] MEDS: GABAPENTIN 400 MG CAP PO SCH (21:21)
[2022-02-15] MEDS: MAGNESIUM OXIDE 400 MG TAB PO SCH (21:21)
[2022-02-15] MEDS: PANTOPRAZOLE 40 MG TABLET PO SCH (21:21)
[2022-02-15] MEDS: APIXABAN 5 MG TAB PO SCH (21:21)
[2022-02-15] MEDS: SERTRALINE 100 MG TAB PO SCH (21:23)
[2022-02-16] MEDS: PIPERACILLIN-TAZOBACTAM 3.375 GM in SODIUM CHLORIDE 0.9% 100 ML IVPB SCH ×3 (00:04→16:19)
[2022-02-16] MEDS: IPRATROPIUM-ALBUTEROL 3 ML NEB INHALATION SCH ×6 (01:02→20:02)
[2022-02-16] MEDS ORDERED: IPRATROPIUM-ALBUTEROL 3 ML NEB INHALATION PRN (09:48)
[2022-02-16] MEDS: SERTRALINE 100 MG TAB PO SCH ×2 (10:14→21:45)
[2022-02-16] MEDS: MAGNESIUM OXIDE 400 MG TAB PO SCH ×2 (10:14→21:45)
[2022-02-16] MEDS: ASPIRIN 81 MG PO SCH (10:14)
[2022-02-16] MEDS: METOPROLOL SUCCINATE (ER) 100 MG TAB.ER.24H PO SCH (10:14)
[2022-02-16] MEDS: PANTOPRAZOLE 40 MG TABLET PO SCH ×2 (10:14→21:45)
[2022-02-16] MEDS: FUROSEMIDE 40 MG TAB PO SCH (10:14)
[2022-02-16] MEDS: APIXABAN 5 MG TAB PO SCH ×2 (10:14→21:45)
[2022-02-16] MEDS: GABAPENTIN 400 MG CAP PO SCH ×3 (10:14→21:44)
[2022-02-16] MEDS: allopurinoL 100 MG TAB PO SCH ×2 (10:14→21:45)
[2022-02-16] MEDS: methylPREDNISolone SOD SUCCI 40 MG/ML 1 ML VIAL IV SCH ×2 (10:15→21:45)
--- NOTE | 2022-02-16 10:41 | P.PN ---
Subjective Progress Note Date: 02/16/22 Principal diagnosis: Aspiration pneumonia Patient says that his breathing is much better today. He is denying any acute complaints. Objective - Vital Signs Vital signs: Vital Signs Temp 98.2 F 02/16/22 05:09 Pulse 80 02/16/22 09:51 Resp 16 02/16/22 05:09 BP 112/70 02/16/22 05:09 Pulse Ox 95 02/16/22 05:09 FiO2 Intake & Output 02/15/22 02/16/22 02/16/22 18:59 06:59 18:59 Weight 92.079 kg 92.079 kg - Exam General examination - Alert and Oriented 3 in NAD Heart - + S1S2 no murmurs Lungs - bilateral wheezing Abdomen soft NT ND +ve BS Extremities - No edema NIGHT NURSE - Moving all 4 extremities spontaneously, expressive aphasia Psych - Calm and cooperative - Labs CBC & Chem 7: 02/15/22 13:51 02/15/22 19:42 Labs: Abnormal Lab Results - Last 24 Hours (Table) 02/15/22 02/15/22 02/15/22 Range/Units 13:51 13:51 17:28 RBC 3.88 L (4.30-5.90) m/uL Hgb 12.2 L (13.0-17.5) gm/dL Hct 38.8 L (39.0-53.0) % RDW 15.8 H (11.5-15.5) % Plt Count 108 L (150-450) k/uL Lymphocytes # 0.7 L (1.0-4.8) k/uL Potassium 6.1 H* (3.5-5.1) mmol/L Chloride 96 L (98-107) mmol/L Carbon Dioxide 34 H (22-30) mmol/L BUN 67 H (9-20) mg/dL Creatinine 1.45 H (0.66-1.25) mg/dL AST 74 H (17-59) U/L Alkaline Phosphatase 143 H (38-126) U/L Procalcitonin 0.55 H (0.02-0.09) ng/mL Assessment and Plan Assessment: Aspiration pneumonia On admission patient's temperature is 90.8 pulse is 71 respirations 18 and blood pressure 109/74. WBC count is 5.1 and there are no bands. Patient does not meet sepsis criteria Consults speech eval Keep patient nothing by mouth We'll resume his tube feeds -> I ordered Jevity 1.5, 3 times a day. Dietitian to adjust We'll start Zosyn Calcitonin is mildly elevated so we'll continue with the antibiotics Follow up on blood culture Obtain sputum culture possible COPD exacerbation Patient is on 3 L at home. Patient currently satting well on his home O2 Resume IV Solu-Medrol and breathing treatments Antibiotics as above Hyperkalemia Patient was given Kayexalate, D50 amp and insulin Resolved We'll restart spironolactone today and recheck potassium level tomorrow. Tomorrow potassium greater than 5 then we will start spironolactone on discharge Congestive systolic heart failure with an EF less than 20% Patient appears compensated Resume home dose Lasix and spironolactone Hold lisinopril due to hyperkalemia Resume metoprolol Atrial fibrillation Resume metoprolol and Eliquis History of CVA with dysphagia and with PEG tube and also expressive aphasia Resume aspirin and statin Hyperlipidemia Resume statin Hypertension resume BP meds and monitor blood pressure Gout Resume allopurinol CODE STATUS:full code DVT prophylaxis: Rachelqujared Discussed with: Patient, ER, rn Anticipated length of stay > than [address]: home A total of 50 minutes was spent on the care of this complex patient more than 50% of the time was spent in counseling and care coordination.
[2022-02-16 11:08] LABS: African American GFR (CKD) 45.4 (60.0-200.0); BUN/Creat Ratio 33.65 Ratio (12.00-20.00); Blood Urea Nitrogen 57.2 mg/dL (9.0-27.0); Calcium 8.9 mg/dL (8.7-10.3); Non-African American GFR(CKD) 39.1 (60.0-200.0); Potassium 5.5 mmol/L (3.5-5.5)
[2022-02-16 11:21] LABS: Basophils # (A) 0 X 10*3/uL (0.00-0.10); Basophils % (A) 0 %; Eosinophils # (A) 0 X 10*3/uL (0.04-0.35); Eosinophils % (A) 0 %; HCT 34.8 % (39.6-50.0); HGB 10.6 g/dL (13.0-17.0); Immature Grans, Automated 0.3 %; Lymphocytes # (A) 0.35 X 10*3/uL (0.90-5.00); Lymphocytes % (A) 10.1 %; MCH 30.2 pg (27.0-32.0); MCHC 30.5 g/dL (32.0-37.0); MCV 99.1 fL (80.0-97.0); Mean Platelet Volume 13.7 fL (9.5-12.2); Monocytes # (A) 0.07 X 10*3/uL (0.20-1.00); NRBC Per 100 WBC 0 /100 WBCS (0.0-0.0); Neutrophils # (A) 3.04 X 10*3/uL (1.80-7.70); Neutrophils % (A) 87.6 %; Platelet Count 105 X 10*3/uL (140-440); RBC 3.51 X 10*6/uL (4.40-5.60); WBC 3.47 X 10*3/uL (4.50-10.00)
--- NOTE | 2022-02-16 11:45 | FL ---
Modified barium swallow. HISTORY: Dysphagia. Modified barium swallow was performed with the department of speech pathology. The patient was prese nted with various consistencies of barium. Aspiration with thin and nectar thick barium. Full report is to follow from the department of speech pathology. Impression: As above
[2022-02-16 11:57] VITALS: BMI 26.0
[2022-02-16] MEDS: SPIRONOLACTONE 25 MG TAB PO SCH (12:12)
[2022-02-16] MEDS ORDERED: LEVOFLOXACIN 500MG-D5W PMX 500 MG in DEXTROSE/WATER 1 100ML.BAG IVPB SCH (15:00)
[2022-02-16] MEDS: ATORVASTATIN 40 MG TAB PO SCH (21:44)
[2022-02-17] MEDS: PIPERACILLIN-TAZOBACTAM 3.375 GM in SODIUM CHLORIDE 0.9% 100 ML IVPB SCH ×2 (00:38→08:08)
[2022-02-17 05:17] VITALS: BP 104/70; RESP 16; TEMP 97.5
[2022-02-17] MEDS: IPRATROPIUM-ALBUTEROL 3 ML NEB INHALATION SCH ×2 (07:40→11:17)
[2022-02-17 07:52] VITALS: PULSE 72
[2022-02-17] MEDS: allopurinoL 100 MG TAB PO SCH (08:07)
[2022-02-17] MEDS: METOPROLOL SUCCINATE (ER) 100 MG TAB.ER.24H PO SCH (08:07)
[2022-02-17] MEDS: SERTRALINE 100 MG TAB PO SCH (08:07)
[2022-02-17] MEDS: MAGNESIUM OXIDE 400 MG TAB PO SCH (08:07)
[2022-02-17] MEDS: GABAPENTIN 400 MG CAP PO SCH (08:07)
[2022-02-17] MEDS: FUROSEMIDE 40 MG TAB PO SCH (08:07)
[2022-02-17] MEDS: SPIRONOLACTONE 25 MG TAB PO SCH (08:07)
[2022-02-17] MEDS: ASPIRIN 81 MG PO SCH (08:07)
[2022-02-17] MEDS: methylPREDNISolone SOD SUCCI 40 MG/ML 1 ML VIAL IV SCH (08:07)
[2022-02-17] MEDS: APIXABAN 5 MG TAB PO SCH (08:07)
[2022-02-17] MEDS: PANTOPRAZOLE 40 MG TABLET PO SCH (08:07)
[2022-02-17 09:12] LABS: Anisocytosis Slight; Basophils % (A) 0 %; Eosinophils % (A) 0 %; HCT 38.3 % (39.0-53.0); HGB 11.7 gm/dL (13.0-17.5); Hypochromasia Marked; Lymphocytes # (A) 0.6 k/uL (1.0-4.8); Lymphocytes % (A) 6 %; MCH 30.7 pg (25.0-35.0); MCHC 30.5 g/dL (31.0-37.0); MCV 100.8 fL (80.0-100.0); Macrocytosis Slight; Mean Platelet Volume 11.2; Monocytes # (A) 0.4 k/uL (0-1.0); Monocytes % (A) 5 %; Neutrophils # (A) 8.1 k/uL (1.3-7.7); Neutrophils % (A) 88 %; Platelet Count 110 k/uL (150-450); RDW 16.1 % (11.5-15.5); WBC 9.2 k/uL (3.8-10.6)
[2022-02-17 09:21] LABS: African American GFR (CKD) 47 (>60 ml/min/1.73 sqM); Anion Gap 7 mmol/L; Blood Urea Nitrogen 65 mg/dL (9-20); Calcium 8.8 mg/dL (8.4-10.2); Carbon Dioxide 32 mmol/L (22-30); Chloride 100 mmol/L (98-107); Glucose 121 mg/dL (74-99); Non-African American GFR(CKD) 41 (>60 ml/min/1.73 sqM); Potassium 5.3 mmol/L (3.5-5.1); Sodium 139 mmol/L (137-145)
--- NOTE | 2022-02-17 10:29 | P.DS ---
Providers Date of admission: 02/15/22 16:08 Attending physician: Siva Zurita MD Primary care physician: [facility] Hospital Course: Discharge Diagnosis: Aspiration pneumonia COPD exacerbation Hyperkalemia Congestive systolic heart failure with an EF of less than 20% Atrial fibrillation History of CVA with dysphagia status post PEG tube and also expressive aphasia Hyperlipidemia Hypertension Gout Hospital Course: Patient is a 71-year-old male with a past medical history of congestive systolic heart failure with an EF of less than 20%, COPD on 3 L nasal cannula, atrial fibrillation, CVA with expressive aphasia and with dysphagia s/p PEG, hyperlipidemia, hypertension who presents to the ED with shortness of breath that has been ongoing for weeks. There is no family at bedside and it is difficult to understand the patient due to his expressive aphasia. Patient states that he continues to eat food through his mouth even though he has a history of dysphagia due to stroke and has a PEG tube. Patient's chest x-ray showed right basilar patchy airspace concerning for aspiration pneumonia. Patient was admitted for further treatment of his aspiration pneumonia and COPD exacerbation. Patient started on IV Zosyn. He was started on breathing treatment and steroids. At the time of discharge patient blood cultures were negative to date. Patient was satting well on his home O2 at 3 L. Patient also reported that he was feeling significantly better. Patient wanted to go home. Patient seen by cem lewis who recommended the patient continue to receive primary nutrition/hydration/medication via PEG tube and may have pleasure intake of very soft foods (ground texture at most advanced) and height intake and liquid via spoon. This was discussed with the patient however it is highly questionable that the patient will comply as he states that he will eat whenever is put in front of him. Patient deemed stable for discharge. Patient will be discharged on Augmentin and prednisone to complete a 5 day course. Patient also found to have hyperkalemia so I discontinued his spironolactone and lisinopril. 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 Patient seen and examined at bedside.[] Vital signs reviewed and stable. General: [non toxic], [no distress], [appears at stated age] Derm: [warm], [dry] Head: [atraumatic], [normocephalic], [symmetric] Eyes: [EOMI], [no lid lag], [anicteric sclera] Mouth: [no lip lesion], [mucus membranes moist] Cardiovascular: [S1S2 reg], [no murmur], [positive posterior tibial pulse bilateral], Lungs: Diminished breath sounds bilaterally, [no rhonchi, no rales] , [no accessory muscle use] Abdominal: [soft], [ nontender to palpation], [no guarding], [no appreciable organomegaly] + PEG tube Ext: [no gross muscle atrophy], [no edema], [no contractures] Neuro: Expressive aphasia Psych: [Alert], [oriented], [appropriate affect] A total of [33] minutes of time were spent preparing this complex discharge summary . Patient Condition at Discharge: Stable Plan - Discharge Summary New Discharge Prescriptions: New Amoxic-Pot Clav 600-42.9MG/5Ml [Augmentin 600-42.9 mg/5 ml Liquid] 5 ml PO Q12H 3 Days #30 ml predniSONE 50 mg PO DAILY 3 Days #3 tablet Continue Sertraline HCl [Zoloft] 100 mg PO BID Omeprazole [PriLOSEC] 20 mg PO BID allopurinoL [Zyloprim] 100 mg PO BID Aspirin [Adult Low Dose Aspirin EC] 81 mg PO DAILY Acetaminophen-Codeine 300-30mg [Tylenol w/codeine #3] 1 tab PO TID PRN PRN Reason: Pain Rosuvastatin Calcium [Crestor] 20 mg PO HS Albuterol Sulfate [Albuterol Sulfate Hfa] 2 puff INHALATION RT-QID PRN PRN Reason: Shortness Of Breath Apixaban [Eliquis] 5 mg PO BID Jevity 1.5 Jakob Liquid 3 can PO DAILY Metoprolol Succinate (ER) [Toprol XL] 100 mg PO DAILY Ipratropium-Albuterol Nebulize [Duoneb 0.5 mg-3 mg/3 ml Soln] 3 ml INHALATION RT-QID PRN PRN Reason: Shortness Of Breath Mag-Ox 420mg 420 mg PO BID Gabapentin [Neurontin] 800 mg PO TID Furosemide [Lasix] 40 mg PO DAILY Discontinued lisinopriL [Zestril] 2.5 mg PO DAILY Spironolactone 25 mg PO DAILY Discharge Medication List Aspirin [Adult Low Dose Aspirin EC] 81 mg PO DAILY 09/02/17 [History] Omeprazole [PriLOSEC] 20 mg PO BID 09/02/17 [History] Sertraline HCl [Zoloft] 100 mg PO BID 09/02/17 [History] allopurinoL [Zyloprim] 100 mg PO BID 09/02/17 [History] Acetaminophen-Codeine 300-30mg [Tylenol w/codeine #3] 1 tab PO TID PRN 04/01/19 [History] Rosuvastatin Calcium [Crestor] 20 mg PO HS 08/20/19 [History] Albuterol Sulfate [Albuterol Sulfate Hfa] 2 puff INHALATION RT-QID PRN 12/27/20 [History] Apixaban [Eliquis] 5 mg PO BID 12/27/20 [History] Jevity 1.5 Jakob Liquid 3 can PO DAILY 12/27/20 [History] Metoprolol Succinate (ER) [Toprol XL] 100 mg PO DAILY 12/27/20 [History] Ipratropium-Albuterol Nebulize [Duoneb 0.5 mg-3 mg/3 ml Soln] 3 ml INHALATION RT-QID PRN 02/08/21 [History] Mag-Ox 420mg 420 mg PO BID 02/08/21 [History] Gabapentin [Neurontin] 800 mg PO TID 12/28/21 [History] Furosemide [Lasix] 40 mg PO DAILY 02/15/22 [History] Amoxic-Pot Clav 600-42.9MG/5Ml [Augmentin 600-42.9 mg/5 ml Liquid] 5 ml PO Q12H 3 Days #30 ml 02/17/22 [Rx] predniSONE 50 mg PO DAILY 3 Days #3 tablet 02/17/22 [Rx] Follow up Appointment(s)/Referral(s): Andreina Echeverria MD [STAFF PHYSICIAN] - 1 Week [facility]inic [Primary Care Provider] - 1-2 days Discharge Disposition: HOME SELF-CARE
--- NOTE | 2022-02-20 09:10 | CDI ---
Documentation Clarification Form Date: 02/20/22 From: Zara Johnson Admit Date: 02/15/2022 04:08:00 PM Patient Name: Peter Apodaca Visit Number: [id number] Discharge Date: 02/17/2022 12:41:00 PM ATTENTION: The Clinical Documentation Specialists (CDI) and [facility] Coding Staff appreciate your assistance in clarifying documentation. Please respond to the clarification below the line at the bottom and electronically sign. The CDI & [facility] Coding staff will review the response and follow-up if needed. Please note: Queries are made part of the Legal Health Record. If you have any questions, please contact the author of this message via ITS. Dr. Siva Zurita, Your patient is on 3L at home per H&P. Based on this information and the findings below, is there an additional diagnosis that is clinically appropriate for this patient? History/Risk Factors: Hx of cerebral infarction with right sided weakness, dysphagia and aphasia, HTN w chronic systolic CHF, COPD w exacerbation, PEG, atrial fib, hyperkalemia, HLD Tobacco use: Former smoker Home oxygen: 3L Clinical Indicators: Patient had an aspiration episode about a week ago and since then he has been having worsening shortness of breath. Patient does have a PEG tube and he states that he receives tube feeds twice a day and he also states that he eats food very slowly and small bites. In the ED patient was afebrile and sating well on 4 L nasal cannula. Vital signs: T 97.9, P 82, R 18, BP 90/63 Pulse oximetry: 88 Lung/Breathing assessment: worsening cough, as well as increased work of breathing. Bilateral end expiratory wheezing, rhonchorous breath sounds in the right lower lobe. Hypoxic on room air which is expected, normal 4 L nasal cannula patient is saturating 92%. Lactate: 1.4 Treatment: Presents on 4L O2, moved to 3L and will titrate down to 2L IV antibiotics, IV Solu-Medrol. Breathing tx: nebulizer Is there an additional diagnosis that is clinically appropriate for this patient? [ X ] Chronic Hypoxic Respiratory Failure [ ] Chronic Hypercapnia Respiratory Failure [ ] Chronic Hypoxic & Hypercapnia Respiratory Failure [ ] Other Diagnosis, please specify [ ] Unable to determine MTDD
== END 2022-02-17 12:41 | disposition home or self-care (01) | DRG 178 ==
LOC: EC 12:48 → 5NMEDONC 16:08
PROVIDERS: ADMIT Internal Medicine; ATTEND Internal Medicine
DX: J69.0 Pneumonitis due to inhalation of food and vomit (principal); I50.22 Chronic systolic (congestive) heart failure; J96.11 Chronic respiratory failure with hypoxia; I69.351 Hemiplegia and hemiparesis following cerebral infarction affecting right dominant side; Z43.1 Encounter for attention to gastrostomy; J44.1 Chronic obstructive pulmonary disease with (acute) exacerbation; I11.0 Hypertensive heart disease with heart failure; Z99.81 Dependence on supplemental oxygen; I48.91 Unspecified atrial fibrillation; Z20.822 Contact with and (suspected) exposure to COVID-19; E87.5 Hyperkalemia; E78.5 Hyperlipidemia, unspecified; I69.320 Aphasia following cerebral infarction; I69.391 Dysphagia following cerebral infarction; H91.90 Unspecified hearing loss, unspecified ear; G62.9 Polyneuropathy, unspecified; H26.9 Unspecified cataract; M10.9 Gout, unspecified; G47.30 Sleep apnea, unspecified; F32.A Depression, unspecified; F43.10 Post-traumatic stress disorder, unspecified; D64.9 Anemia, unspecified; Z79.01 Long term (current) use of anticoagulants; Z79.82 Long term (current) use of aspirin; Z79.899 Other long term (current) drug therapy; Z87.891 Personal history of nicotine dependence; Z95.810 Presence of automatic (implantable) cardiac defibrillator; Z95.5 Presence of coronary angioplasty implant and graft; Z88.1 Allergy status to other antibiotic agents; Z88.2 Allergy status to sulfonamides; Z88.8 Allergy status to other drugs, medicaments and biological substances
CPT/HCPCS: 36415; 71046; 74230; 80048; 80053; 83605; 83880; 84132; 84145; 84484; 85025; 85610; 85730; 87040; 87502; 87635; 93005; 94640; 94644; 96365; 96366; 96368; 96375; 99285

== ENCOUNTER 2022-04-04 14:02 | Inpatient (IN) | payer OTHER, MEDICARE ==
[2022-04-04 17:43] LABS: Anisocytosis Slight; Basophils % (A) 0 %; Eosinophils # (A) 0.1 k/uL (0-0.7); Eosinophils % (A) 1 %; HCT 37.7 % (39.0-53.0); HGB 11.8 gm/dL (13.0-17.5); Hypochromasia Marked; Lymphocytes # (A) 0.7 k/uL (1.0-4.8); Lymphocytes % (A) 13 %; MCH 30.7 pg (25.0-35.0); MCHC 31.2 g/dL (31.0-37.0); MCV 98.2 fL (80.0-100.0); Macrocytosis Slight; Mean Platelet Volume 11.1; Monocytes # (A) 0.5 k/uL (0-1.0); Monocytes % (A) 8 %; Neutrophils # (A) 4.3 k/uL (1.3-7.7); Neutrophils % (A) 76 %; Platelet Count 104 k/uL (150-450); Poikilocytosis Slight; RBC 3.84 m/uL (4.30-5.90); RDW 16.4 % (11.5-15.5); WBC 5.7 k/uL (3.8-10.6)
[2022-04-04 17:48] LABS: Albumin 3.5 g/dL (3.5-5.0); Calcium 8.9 mg/dL (8.4-10.2); Potassium 4.1 mmol/L (3.5-5.1); Total Bilirubin 0.7 mg/dL (0.2-1.3); Total Protein 6.3 g/dL (6.3-8.2)
[2022-04-04 17:57] LABS: INR 1.2 (<1.2); Partial Thromboplastin Time 26.3 sec (22.0-30.0); Prothrombin Time 11.9 sec (9.0-12.0)
--- NOTE | 2022-04-04 17:59 | ED ---
General Adult HPI - General Chief complaint: Extremity Problem,Nontraumatic Stated complaint: bilateral feet swelling Time Seen by Provider: 04/04/22 17:46 Source: patient, family (daughter), RN notes reviewed, old records reviewed Mode of arrival: ambulatory Limitations: no limitations - History of Present Illness Initial comments: This is a 71-year-old nontoxic appearing male presents to the emergency room with his daughter complaining of bilateral lower extremity pain and swelling for the past 3 days. States was seen and hospitalizedlast month for same. [facility] Dr Flores increased his Lasix to 80 mg a day. However for the past 3 days has had increased swelling again with shortness of breath and cough. He also developed bilateral shoulder pain and chest pain today. Denies any fevers, no nausea vomiting or diarrhea. Patient states that he is a 6 cigarette a day smoke,r denies any alcohol or drug use. -: days(s) (3) Location: left, right, upper extremity (Bilateral lower extremities and bilateral shoulder), lower extremity Associated Symptoms: cough, shortness of breath, other (BLLE swelling) - Related Data Home Medications Medication Instructions Recorded Confirmed Aspirin [Adult Low Dose Aspirin EC] 81 mg PO DAILY 09/02/17 04/04/22 Omeprazole [PriLOSEC] 20 mg PO BID 09/02/17 04/04/22 Sertraline HCl [Zoloft] 100 mg PO BID 09/02/17 04/04/22 allopurinoL [Zyloprim] 100 mg PO BID 09/02/17 04/04/22 Acetaminophen-Codeine 300-30mg 1 tab PO TID PRN 04/01/19 04/04/22 [Tylenol w/codeine #3] Rosuvastatin Calcium [Crestor] 20 mg PO HS 08/20/19 04/04/22 Albuterol Sulfate [Albuterol 2 puff INHALATION RT-QID PRN 12/27/20 04/04/22 Sulfate Hfa] Apixaban [Eliquis] 5 mg PO BID 12/27/20 04/04/22 Jevity 1.5 Jakob Liquid 3 can PO DAILY 12/27/20 04/04/22 Metoprolol Succinate (ER) [Toprol 100 mg PO DAILY 12/27/20 04/04/22 XL] Ipratropium-Albuterol Nebulize 3 ml INHALATION RT-QID PRN 11/10/21 01/04/23 [Duoneb 0.5 mg-3 mg/3 ml Soln] Mag-Ox 420mg 420 mg PO BID 02/08/21 04/04/22 Gabapentin [Neurontin] 800 mg PO TID 12/28/21 04/04/22 Furosemide [Lasix] 80 mg PO DAILY 02/15/22 04/04/22 Allergies Allergy/AdvReac Type Severity Reaction Status Date / Time metolazone [From Zaroxolyn] Allergy Rash/Hives Verified 04/04/22 19:09 warfarin [From Coumadin] Allergy Unknown - Verified 04/04/22 19:09 Per [facility] list fluticasone AdvReac Dyspnea Verified 04/04/22 19:09 [From Wixela Inhub] fluvastatin AdvReac weakness/muscle Verified 04/04/22 19:09 pain rosuvastatin [From Crestor] AdvReac muscle pain Verified 04/04/22 19:09 salmeterol AdvReac Dyspnea Verified 04/04/22 19:09 [From Wixela Inhub] simvastatin AdvReac muscle pain Verified 04/04/22 19:09 sulfamethoxazole AdvReac Abdominal Verified 04/04/22 19:09 [From Bactrim] Pain trimethoprim [From Bactrim] AdvReac Abdominal Verified 04/04/22 19:09 Pain Review of Systems ROS Statement: Those systems with pertinent positive or pertinent negative responses have been documented in the HPI. ROS Other: All systems not noted in ROS Statement are negative. 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 sided weakness,cataracts, bruises easily due to coumadin,does not wear cpap,neuropathy moe. feet History of Any Multi-Drug Resistant Organisms: None Reported Past Surgical History: AICD, Heart Catheterization With Stent Additional Past Surgical History / Comment(s): AICD/Pacemaker, PEG tube placed in [address] Anglin in 2019 Past Anesthesia/Blood Transfusion Reactions: No Reported Reaction Date of Last Stent Placement:: unk Type of Cardiac Device: AICD Device Placement Date:: 2009 Past Psychological History: Anxiety, Depression, PTSD Smoking Status: Former smoker Past Alcohol Use History: None Reported Past Drug Use History: None Reported - Past Family History Brother(s) Family Medical History: Deep Vein Thrombosis (DVT) General Exam Limitations: no limitations General appearance: alert, in no apparent distress Head exam: Present: atraumatic, normocephalic Eye exam: Absent: scleral icterus, conjunctival injection Neck exam: Absent: tenderness, meningismus Respiratory exam: Present: rales (Bilateral bases). Absent: stridor, accessory muscle use Cardiovascular Exam: Present: regular rate GI/Abdominal exam: Present: soft, other (peg tube for supplemental r/t dysphagia). Absent: distended, tenderness Extremities exam: Present: tenderness, normal capillary refill, pedal edema (BLLE pitting). Absent: calf tenderness Neurological exam: Present: alert, oriented X3 Psychiatric exam: Present: normal affect, normal mood Skin exam: Present: warm, dry, pallor. Absent: rash, cyanosis, diaphoretic Course Vital Signs 04/04/22 04/04/22 04/04/22 14:37 17:57 20:00 Temperature 97.8 F 97.8 F 98.2 F Pulse Rate 71 71 Pulse Rate [ 70 Pulse Oximetery ] Respiratory 20 20 18 Rate Blood Pressure 99/69 110/79 Blood Pressure 126/70 [Left Arm] O2 Sat by Pulse 94 L 98 97 Oximetry 04/04/22 20:18 Temperature Pulse Rate 69 Pulse Rate [ Pulse Oximetery ] Respiratory 18 Rate Blood Pressure 119/82 Blood Pressure [Left Arm] O2 Sat by Pulse 100 Oximetry EKG Findings - EKG Results: EKG: interpreted by ERMD (Ventricular pacemaker with a ventricular rate 69, QRS 0.169, QTC 0.489) Medical Decision Making - Medical Decision Making Platelet count 104, troponin elevated at 0.046, BNP 24393 Patient was started on heparin and given Lasix IV. Chest x-ray interpreted by radiologist consistent with CHF exacerbation. Patient in no respiratory distress. Case discussed with Dr. Polk, patient was started on heparin and admitted to the hospital with NSTEMI and exacerbation of congestive heart failure. Aspirin held due to low platelet. Was pt. sent in by a medical professional or institution? @ -No Did you speak to anyone other than the patient for history? @ -Daughter Did you review nursing and triage notes? @ -Yes I agree Were old charts reviewed? @ -Previous EKG and labs Differential Diagnosis? @ -Differential Dyspnea: Coronary syndrome, arrhythmia, tamponade, asthma, COPD, pulmonary embolism, pneumonia, pneumothorax, pulmonary effusion, anaphylaxis, diabetic ketoacidosis, flailed chest, pulmonary contusion, diaphragmatic rupture, anemia, neuromuscular, this is not meant to be an all-inclusive list. EKG interpreted by me (3pts min.)? @ -Yes X-rays interpreted by me (1pt min.)? @ -No film unavailable What testing was considered but not performed? (CT, X-rays, U/S, labs)? Why? @ None What meds were considered but not given? Why? @ -Did consider aspirin over platelet level is low. Did you discuss the management of the patient with other professionals? @ -No Did you reconcile home meds? @ -No Was smoking cessation discussed for >3mins.? @ -Yes Was critical care preformed (if so, how long)? @ -Yes 32 minutes Were there social determinants of health that impacted care today? How? (Homelessness, low income, unemployed, alcoholism, drug addiction, transportation, low edu. Level, literacy, decrease access to med. care, residential, rehab)? @ -No Was there de-escalation of care discussed even if they declined? (Discuss DNR or withdrawal of care, Hospice)? @ -No What co-morbidities impacted this encounter? (DM, HTN, Smoking, COPD, CAD, Cancer, CVA, Hep., AIDS, mental health diagnosis, sleep apnea, morbid obesity)? @ -Congestive heart failure,COPD, A. fib, congestive heart failure, CVA, dysphasia, hypertension, neuropathy Was patient admitted / discharged? @ -Admitted Undiagnosed new problem with uncertain prognosis? @ -[none] Drug Therapy requiring intensive monitoring for toxicity (Heparin, Nitro, Insulin, Cardizem)? @ -Yes heparin Were any procedures done? @ -No Diagnosis/symptom? @ -N STEMI CHF exacerbation Acute, or Chronic, or Acute on Chronic? @ -Acute, acute on chronic Uncomplicated (without systemic symptoms) or Complicated (systemic symptoms)? @ -Complicated Side effects of treatment? @ -[none] Exacerbation, Progression, or Severe Exacerbation] @ -Exacerbation Poses a threat to life or bodily function? @ -Yes - Lab Data Result diagrams: 04/04/22 17:25 04/04/22 17:25 Lab Results 04/04/22 04/04/22 04/04/22 Range/Units 17:25 17:25 17:25 WBC 5.7 (3.8-10.6) k/uL RBC 3.84 L (4.30-5.90) m/uL Hgb 11.8 L (13.0-17.5) gm/dL Hct 37.7 L (39.0-53.0) % MCV 98.2 (80.0-100.0) fL MCH 30.7 (25.0-35.0) pg MCHC 31.2 (31.0-37.0) g/dL RDW 16.4 H (11.5-15.5) % Plt Count 104 L (150-450) k/uL MPV 11.1 Neutrophils % 76 % Lymphocytes % 13 % Monocytes % 8 % Eosinophils % 1 % Basophils % 0 % Neutrophils # 4.3 (1.3-7.7) k/uL Lymphocytes # 0.7 L (1.0-4.8) k/uL Monocytes # 0.5 (0-1.0) k/uL Eosinophils # 0.1 (0-0.7) k/uL Basophils # 0.0 (0-0.2) k/uL Hypochromasia Marked Poikilocytosis Slight Anisocytosis Slight Macrocytosis Slight PT 11.9 (9.0-12.0) sec INR 1.2 H (<1.2) APTT 26.3 (22.0-30.0) sec Sodium 138 (137-145) mmol/L Potassium 4.1 (3.5-5.1) mmol/L Chloride 93 L (98-107) mmol/L Carbon Dioxide 37 H (22-30) mmol/L Anion Gap 8 mmol/L BUN 49 H (9-20) mg/dL Creatinine 1.51 H (0.66-1.25) mg/dL Est GFR (CKD-EPI)AfAm 53 (>60 ml/min/1.73 sqM) Est GFR (CKD-EPI)NonAf 45 (>60 ml/min/1.73 sqM) Glucose 98 (74-99) mg/dL Calcium 8.9 (8.4-10.2) mg/dL Total Bilirubin 0.7 (0.2-1.3) mg/dL AST 39 (17-59) U/L ALT 17 (4-49) U/L Alkaline Phosphatase 133 H (38-126) U/L Troponin I (0.000-0.034) ng/mL NT-Pro-B Natriuret Pep pg/mL Total Protein 6.3 (6.3-8.2) g/dL Albumin 3.5 (3.5-5.0) g/dL 04/04/22 04/04/22 Range/Units 17:25 17:25 WBC (3.8-10.6) k/uL RBC (4.30-5.90) m/uL Hgb (13.0-17.5) gm/dL Hct (39.0-53.0) % MCV (80.0-100.0) fL MCH (25.0-35.0) pg MCHC (31.0-37.0) g/dL RDW (11.5-15.5) % Plt Count (150-450) k/uL MPV Neutrophils % % Lymphocytes % % Monocytes % % Eosinophils % % Basophils % % Neutrophils # (1.3-7.7) k/uL Lymphocytes # (1.0-4.8) k/uL Monocytes # (0-1.0) k/uL Eosinophils # (0-0.7) k/uL Basophils # (0-0.2) k/uL Hypochromasia Poikilocytosis Anisocytosis Macrocytosis PT (9.0-12.0) sec INR (<1.2) APTT (22.0-30.0) sec Sodium (137-145) mmol/L Potassium (3.5-5.1) mmol/L Chloride (98-107) mmol/L Carbon Dioxide (22-30) mmol/L Anion Gap mmol/L BUN (9-20) mg/dL Creatinine (0.66-1.25) mg/dL Est GFR (CKD-EPI)AfAm (>60 ml/min/1.73 sqM) Est GFR (CKD-EPI)NonAf (>60 ml/min/1.73 sqM) Glucose (74-99) mg/dL Calcium (8.4-10.2) mg/dL Total Bilirubin (0.2-1.3) mg/dL AST (17-59) U/L ALT (4-49) U/L Alkaline Phosphatase (38-126) U/L Troponin I 0.046 H* (0.000-0.034) ng/mL NT-Pro-B Natriuret Pep 48020 pg/mL Total Protein (6.3-8.2) g/dL Albumin (3.5-5.0) g/dL Critical Care Time Critical Care Time: Yes Total Critical Care Time: 32 (NSTEMI, heparin gtt) Disposition Clinical Impression: NSTEMI (non-ST elevated myocardial infarction), CHF exacerbation Disposition: ADMITTED IP TO THIS HOSP Decision Date: 04/04/22 Decision Time: 18:20
[2022-04-04] MEDS ORDERED: FUROSEMIDE 10 MG/ML 4 ML VIAL IV STA (18:01)
[2022-04-04] MEDS ORDERED: HEPARIN SODIUM 1,000 UN/ML (10ML VL) IV PRN (18:09)
[2022-04-04] MEDS ORDERED: HEPARIN SODIUM 1,000 UN/ML (10ML VL) IV ONE (18:09)
[2022-04-04] MEDS ORDERED: NALOXONE 0.4 MG/ML 1 ML VIAL IV PRN (18:44)
[2022-04-04] MEDS ORDERED: ACETAMINOPHEN TAB 325 MG TAB PO PRN (18:44)
[2022-04-04] MEDS: HEPARIN SOD,PORK IN 0.45% NACL 25,000 UNIT in 0.45% NACL 1 250ML.BAG IV SCH (19:08)
--- NOTE | 2022-04-04 20:24 | XR ---
EXAMINATION TYPE: XR chest 2V DATE OF EXAM: 04/04/2022 COMPARISON: Chest x-ray February 15, 2022 HISTORY: Dyspnea and chest pain. TECHNIQUE: Frontal and lateral views of the chest are obtained. FINDINGS: Cardiomegaly with dual lead pacemaker/defibrillator is redemonstrated. There are new small to moderate sized right greater than left pleural effusions and moderate central vascular congestion . The osseous structures are intact. IMPRESSION: Findings consistent with CHF exacerbation as detailed above. Correlate clinically. Progr ess study advised.
[2022-04-05] MEDS ORDERED: ASPIRIN 325 MG TAB PO STA (03:48)
[2022-04-05] MEDS ORDERED: Acetaminophen-Codeine 300-30mg TAB PO PRN (03:49)
--- NOTE | 2022-04-05 03:51 | P.HPIM ---
History of Present Illness H&P Date: 04/04/22 The patient is a 71-year-old male with a PMH of A. 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 The patient was confused at the time of interview, and thereby history supplemented from the ED provider in the chart. Attempted to contact the person listed as power of erisa attorney in the chart with no response. The patient reports that he has been experiencing lower extremity swelling and pain of the past 3-4 days. Patient states that his Lasix had recently been increased to 80 mg daily without significant improvement. Also expressed left-sided chest discomfort, 5 out of 10 on maximal intensity, intermittent, with associated shortness of breath. Denied experiencing cough, fever, chills. Upon arrival at the emergency room, the patient's SpO2 was 94% on room air with BP 99/69. EKG in the emergency room revealed a V paced rhythm at 69 bpm. chest x-ray was consistent with CHF exacerbation. Laboratory evaluation was remar kable for troponin of 0.046, with creatinine 1.51 (similar to baseline) and platelet count 104. Review of systems: Pertinent positives and negatives as discussed in HPI, a complete review of systems was performed and all other systems are negative. Physical examination: General: non toxic, no distress, appears at stated age, normal weight Derm: no unusual rashes/lesions, warm Head: atraumatic, normocephalic, symmetric Eyes: EOMI, no lid lag, anicteric sclera, pupils equal round reactive to light ENT: Nose and ears atraumatic Neck: No cervical lymphadenopathy, trachea midline, supple Mouth: no lip lesion, mucus membranes moist Cardiovascular: S1S2 reg, no murmur, positive dorsalis pedis pulse bilateral, 1+ bilateral lower pitting edema Lungs: Scattered rales without rhonchi or wheezing, no accessory muscle use Abdominal: soft, nontender to palpation, no guarding, PEG tube in place Ext: muscle strength 5 out of 5 in all 4 extremities grossly, no gross muscle atrophy, no contractures, bilateral lower extremity venous stasis changes noted Neuro: CN II-XI grossly intact, no gross focal neuro deficits Psych: Alert, oriented to person place only, answering questions appropriately Assessment/plan Acute CHF exacerbation -Continue with Lasix IV -Fluid restriction -Intake output -Cardiology consulted -Cardiac monitoring -Monitor electrolytes Non-ST elevation MT -Trend troponin -Heparin infusion -Continue with aspirin Altered mental status -Suspect delirium -Patient was oriented 3 in the emergency room -Monitor for now Chronic conditions: A. fib, COPD, hypertension, hyperlipidemia -Continue with home meds DVT prophylaxis -Heparin infusion (The patient didn't take his evening Eliquis dose) The patient is admitted with an anticipated than 2 midnight stay for evaluation of CHF CODE STATUS: Full Code Discussed with: Patient Anticipated discharge date: 2-[address]: Home Past Medical History Past Medical History: Atrial Fibrillation, Heart Failure, COPD, CVA/TIA, Eye Disorder, Hearing Disorder / Deafness, Hyperlipidemia, Hypertension, Skin Disorder, Sleep Apnea/CPAP/BIPAP Additional Past Medical History / Comment(s): CVA approx 2009-speech affected and slight rt. sided weakness,cataracts, bruises easily due to coumadin,does not wear cpap,neuropathy moe. feet History of Any Multi-Drug Resistant Organisms: None Reported Past Surgical History: AICD, Heart Catheterization With Stent Additional Past Surgical History / Comment(s): AICD/Pacemaker, PEG tube placed in [address] Anglin in 2019 Past Anesthesia/Blood Transfusion Reactions: No Reported Reaction Date of Last Stent Placement:: unk Type of Cardiac Device: AICD Device Placement Date:: 2009 Past Psychological History: Anxiety, Depression, PTSD Additional Psychological History / Comment(s): PTSD 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 war Smoking Status: Current every day smoker Past Alcohol Use History: None Reported Additional Past Alcohol Use History / Comment(s): states he stopped smoking a pack per day two days ago Past Drug Use History: None Reported - Past Family History Brother(s) Family Medical History: Deep Vein Thrombosis (DVT) Medications and Allergies Home Medications Medication Instructions Recorded Confirmed Type Aspirin [Adult Low Dose Aspirin EC] 81 mg PO DAILY 09/02/17 04/04/22 History Omeprazole [PriLOSEC] 20 mg PO BID 09/02/17 04/04/22 History Sertraline HCl [Zoloft] 100 mg PO BID 09/02/17 04/04/22 History allopurinoL [Zyloprim] 100 mg PO BID 09/02/17 04/04/22 History Acetaminophen-Codeine 300-30mg 1 tab PO TID PRN 04/01/19 04/04/22 History [Tylenol w/codeine #3] Rosuvastatin Calcium [Crestor] 20 mg PO HS 08/20/19 04/04/22 History Albuterol Sulfate [Albuterol 2 puff INHALATION RT-QID PRN 12/27/20 04/04/22 His tory Sulfate Hfa] Apixaban [Eliquis] 5 mg PO BID 12/27/20 04/04/22 History Jevity 1.5 Jakob Liquid 3 can PO DAILY 12/27/20 04/04/22 History Metoprolol Succinate (ER) [Toprol 100 mg PO DAILY 12/27/20 04/04/22 History XL] Ipratropium-Albuterol Nebulize 3 ml INHALATION RT-QID PRN 02/08/21 04/04/22 History [Duoneb 0.5 mg-3 mg/3 ml Soln] Mag-Ox 420mg 420 mg PO BID 02/08/21 04/04/22 History Gabapentin [Neurontin] 800 mg PO TID 12/28/21 04/04/22 History Furosemide [Lasix] 80 mg PO DAILY 02/15/22 04/04/22 History Allergies Allergy/AdvReac Type Severity Reaction Status Date / Time metolazone [From Zaroxolyn] Allergy Rash/Hives Verified 04/04/22 19:09 warfarin [From Coumadin] Allergy Unknown - Verified 04/04/22 19:09 [facility] list fluticasone AdvReac Dyspnea Verified 04/04/22 19:09 [From Wixela Inhub] fluvastatin AdvReac weakness/muscle Verified 04/04/22 19:09 pain rosuvastatin [From Crestor] AdvReac muscle pain Verified 04/04/22 19:09 salmeterol AdvReac Dyspnea Verified 04/04/22 19:09 [From Wixela Inhub] simvastatin AdvReac muscle pain Verified 04/04/22 19:09 sulfamethoxazole AdvReac Abdominal Verified 04/04/22 19:09 [From Bactrim] Pain trimethoprim [From Bactrim] AdvReac Abdominal Verified 04/04/22 19:09 Pain Physical Exam Vitals: Vital Signs Temp Pulse Resp BP Pulse Ox 04/04/22 20:18 69 18 119/82 100 04/04/22 17:57 97.8 F 71 20 110/79 98 04/04/22 14:37 97.8 F 71 20 99/69 94 L Intake and Output 04/04/22 04/04/22 04/05/22 14:59 22:59 06:59 Other: Weight 90.718 kg 90.718 kg Results CBC & Chem 7: 04/04/22 17:25 04/04/22 17:25 Labs: Abnormal Lab Results - Last 24 Hours (Table) 04/04/22 04/04/22 04/04/22 Range/Units 17:25 17:25 17:25 RBC 3.84 L (4.30-5.90) m/uL Hgb 11.8 L (13.0-17.5) gm/dL Hct 37.7 L (39.0-53.0) % RDW 16.4 H (11.5-15.5) % Plt Count 104 L (150-450) k/uL Lymphocytes # 0.7 L (1.0-4.8) k/uL INR 1.2 H (<1.2) Chloride 93 L (98-107) mmol/L Carbon Dioxide 37 H (22-30) mmol/L BUN 49 H (9-20) mg/dL Creatinine 1.51 H (0.66-1.25) mg/dL Alkaline Phosphatase 133 H (38-126) U/L Troponin I (0.000-0.034) ng/mL 04/04/22 04/04/22 Range/Units 17:25 20:07 RBC (4.30-5.90) m/uL Hgb (13.0-17.5) gm/dL Hct (39.0-53.0) % RDW (11.5-15.5) % Plt Count (150-450) k/uL Lymphocytes # (1.0-4.8) k/uL INR (<1.2) Chloride (98-107) mmol/L Carbon Dioxide (22-30) mmol/L BUN (9-20) mg/dL Creatinine (0.66-1.25) mg/dL Alkaline Phosphatase (38-126) U/L Troponin I 0.046 H* 0.046 H* (0.000-0.034) ng/mL Thrombosis Risk Factor Assmnt - Choose All That Apply Each Factor Represents 1 point: Serious lung disease incl. pneumonia (< 1month) Other Risk Factors: Yes Each Risk Factor Represents 2 Points: Age 61-74 years Thrombosis Risk Factor Assessment Total Risk Factor Score: 3 Thrombosis Risk Factor Assessment Level: Moderate Risk
[2022-04-05] MEDS: GABAPENTIN 400 MG CAP PO SCH ×3 (08:41→20:15)
[2022-04-05] MEDS: allopurinoL 100 MG TAB PO SCH ×2 (08:41→20:15)
[2022-04-05] MEDS: SERTRALINE 100 MG TAB PO SCH ×2 (08:41→20:15)
[2022-04-05] MEDS ORDERED: NON FORMULARY DRUG (Jevity 1.5 Cal Liquid 1,000 ML Ml) PO SCH (09:00)
[2022-04-05] MEDS ORDERED: METOPROLOL SUCCINATE (ER) 100 MG TAB.ER.24H PO SCH (09:00)
[2022-04-05] MEDS ORDERED: FUROSEMIDE 10 MG/ML 4 ML VIAL IV SCH (09:00)
[2022-04-05 09:09] LABS: Anisocytosis Slight; Basophils % (A) 1 %; Eosinophils # (A) 0.1 k/uL (0-0.7); Eosinophils % (A) 1 %; HCT 40.2 % (39.0-53.0); HGB 11.9 gm/dL (13.0-17.5); Hypochromasia Marked; Lymphocytes # (A) 1.2 k/uL (1.0-4.8); Lymphocytes % (A) 18 %; MCH 29.5 pg (25.0-35.0); MCHC 29.5 g/dL (31.0-37.0); MCV 99.9 fL (80.0-100.0); Macrocytosis Slight; Mean Platelet Volume 11.2; Monocytes # (A) 0.5 k/uL (0-1.0); Monocytes % (A) 8 %; Neutrophils # (A) 4.6 k/uL (1.3-7.7); Neutrophils % (A) 70 %; Platelet Count 101 k/uL (150-450); Poikilocytosis Slight; RBC 4.03 m/uL (4.30-5.90); RDW 16.9 % (11.5-15.5); WBC 6.5 k/uL (3.8-10.6)
[2022-04-05 09:14] LABS: INR 1.2 (<1.2); Partial Thromboplastin Time 49.3 sec (22.0-30.0)
[2022-04-05] MEDS: SACUBITRIL/VALSARTAN 24 MG-26 MG TABLET PO SCH ×2 (09:58→20:15)
[2022-04-05 10:10] LABS: Albumin 3.6 g/dL (3.5-5.0); Calcium 8.7 mg/dL (8.4-10.2); Potassium 4.4 mmol/L (3.5-5.1); Total Bilirubin 0.8 mg/dL (0.2-1.3); Total Protein 6.6 g/dL (6.3-8.2)
--- NOTE | 2022-04-05 13:08 | P.CRDCN ---
History of Present Illness Consult date: 04/05/22 Reason for Consult (text): NSTEI, CHF EXACERBATION History of present illness: HISTORY OF PRESENTING ILLNESS This is a 71-year-old male past medical history significant for coronary artery disease, ischemic cardiomyopathy status post AICD, hypertension, chronic systolic heart failure, persistent atrial fibrillation on long-term anticoagulation with eliquis, COPD, chronic hypoxic respiratory failure on home O2, and former nicotine dependence. He follows in the office with Dr. Curiel. We have been asked to see in consultation for NSTEMI and CHF exacerbation. Patient presented to the hospital due to bilateral lower extremity pain and swelling along with left-sided chest pain 5/10 with shortness of breath. He complains of cough with sputum production that is chronic. Symptoms have been going on for 3-4 days. Patient received a dose of Lasix 40 mg IV 1 followed by twice daily dosing and was started on a heparin drip. Patient states his breathing status is better from yesterday. EKG by V paced rhythm Chest x-ray reveals CHF exacerbation WBC 6.5, hemoglobin 11.9, platelet count 101. Potassium 4.4, BUN 49 creatinine 1.56. Troponin 0.046 and 0.046. ProBNP 26,600 REVIEW OF SYSTEMS At the time of my exam: CONSTITUTIONAL: Denies fever or chills. CARDIOVASCULAR: Complains of shortness of breath. Denies chest pain, orthopnea, PND or palpitations. RESPIRATORY: Denies cough. GASTROINTESTINAL: Denies abdominal pain, diarrhea, constipation, nausea or vomiting. MUSCULOSKELETAL: Denies myalgias. NEUROLOGIC: Denies numbness, tingling, headache or weakness. ENDOCRINE: Denies fatigue, weight change, polydipsia or polyurina. GENITOURINARY: Denies burning, hematuria or urgency with micturation. HEMATOLOGIC: Denies history of anemia or bleeding. PHYSICAL EXAMINATION CONSTITUTIONAL: No apparent distress. HEENT: Head is normocephalic. Pupils are equal, round. Sclerae anicteric. Mucous membranes of the mouth are moist. No JVD. No carotid bruit. CHEST EXAMINATION: Diminished bilaterally, expiratory wheezes throughout and b ibasilar crackles. No chest wall tenderness is noted on palpation or with deep breathing. HEART EXAMINATION: Regular rate and rhythm. S1, S2 heard. No murmurs, gallops or rub. ABDOMEN: Soft, nontender. EXTREMITIES: 2+ peripheral pulses, no lower extremity edema and no calf tenderness. NEUROLOGIC EXAMINATION: Patient is awake, alert and oriented x3. ASSESSMENT Acute on chronic systolic heart failure Elevated troponin secondary to heart failure and kidney disease Chronic persistent atrial fibrillation Ischemic cardiomyopathy status post AICD Hypertension PLAN Hold IV Lasix Start patient on Entresto 2426 milligrams twice daily Monitor BMP and magnesium Further recommendations to follow based upon clinical course. Thank you kindly for this consultation. Nurse Practitioner note has been reviewed, I agree with a documented findings and plan of care. Patient was seen and examined. 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 sided weakness,cataracts, bruises easily due to coumadin,does not wear cpap,neuropathy moe. feet History of Any Multi-Drug Resistant Organisms: None Reported Past Surgical History: AICD, Heart Catheterization With Stent Additional Past Surgical History / Comment(s): AICD/Pacemaker, PEG tube placed in [address] Anglin in 2019 Past Anesthesia/Blood Transfusion Reactions: No Reported Reaction Date of Last Stent Placement:: unk Type of Cardiac Device: AICD Device Placement Date:: 2009 Past Psychological History: Anxiety, Depression, PTSD Additional Psychological History / Comment(s): PTSD 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 war Smoking Status: Current every day smoker Past Alcohol Use History: None Reported Additional Past Alcohol Use History / Comment(s): states he stopped smoking a pack per day two days ago Past Drug Use History: None Reported - Past Family History Brother(s) Family Medical History: Deep Vein Thrombosis (DVT) Medications and Allergies Home Medications Medication Instructions Recorded Confirmed Type Aspirin [Adult Low Dose Aspirin EC] 81 mg PO DAILY 09/02/17 04/04/22 History Omeprazole [PriLOSEC] 20 mg PO BID 09/02/17 04/04/22 History Sertraline HCl [Zoloft] 100 mg PO BID 09/02/17 04/04/22 History allopurinoL [Zyloprim] 100 mg PO BID 09/02/17 04/04/22 History Acetaminophen-Codeine 300-30mg 1 tab PO TID PRN 04/01/19 04/04/22 History [Tylenol w/codeine #3] Rosuvastatin Calcium [Crestor] 20 mg PO HS 08/20/19 04/04/22 History Albuterol Sulfate [Albuterol 2 puff INHALATION RT-QID PRN 12/27/20 04/04/22 History Sulfate Hfa] Apixaban [Eliquis] 5 mg PO BID 12/27/20 04/04/22 History Jevity 1.5 Jakob Liquid 3 can PO DAILY 12/27/20 04/04/22 History Metoprolol Succinate (ER) [Toprol 100 mg PO DAILY 12/27/20 04/04/22 History XL] Ipratropium-Albuterol Nebulize 3 ml INHALATION RT-QID PRN 02/08/21 04/04/22 History [Duoneb 0.5 mg-3 mg/3 ml Soln] Mag-Ox 420mg 420 mg PO BID 02/08/21 04/04/22 History Gabapentin [Neurontin] 800 mg PO TID 12/28/21 04/04/22 History Furosemide [Lasix] 80 mg PO DAILY 02/15/22 04/04/22 History Allergies Allergy/AdvReac Type Severity Reaction Status Date / Time metolazone [From Zaroxolyn] Allergy Rash/Hives Verified 04/04/22 19:09 warfarin [From Coumadin] Allergy Unknown - Verified 04/04/22 19:09 [facility] fluticasone AdvReac Dyspnea Verified 04/04/22 19:09 [From Wixela Inhub] fluvastatin AdvReac weakness/muscle Verified 04/04/22 19:09 pain rosuvastatin [From Crestor] AdvReac muscle pain Verified 04/04/22 19:09 salmeterol AdvReac Dyspnea Verified 04/04/22 19:09 [From Wixela Inhub] simvastatin AdvReac muscle pain Verified 04/04/22 19:09 sulfamethoxazole AdvReac Abdominal Verified 04/04/22 19:09 [From Bactrim] Pain trimethoprim [From Bactrim] AdvReac Abdominal Verified 04/04/22 19:09 Pain Physical Exam Vitals: Vital Signs Temp Pulse Pulse Resp BP BP Pulse Ox 04/05/22 04:00 98.2 F 70 18 118/76 95 04/05/22 02:00 75 18 04/05/22 00:00 98.1 F 75 18 112/80 96 04/04/22 20:18 69 18 119/82 100 04/04/22 20:00 98.2 F 70 18 126/70 97 04/04/22 17:57 97.8 F 71 20 110/79 98 04/04/22 14:37 97.8 F 71 20 99/69 94 L Intake and Output 04/04/22 04/05/22 04/05/22 22:59 06:59 14:59 Intake Total 301.537 Output Total 250 Balance 51.537 Intake: Intake, IV Titration 61.537 Amount Heparin Sod,Pork in 0.45% 61.537 NaCl 25,000 unit In 0.45 % NaCl 1 250ml.bag @ 11. 03 UNITS/KG/HR 10.006 mls /hr IV .Q24H [facility] Rx#: [id number] Oral 240 Output: Urine 250 Other: Weight 90.718 kg 102.3 kg Results 04/05/22 08:39 04/05/22 08:39 Cardiac Enzymes 04/04/22 04/04/22 04/04/22 Range/Units 17:25 17:25 20:07 AST 39 (17-59) U/L Troponin I 0.046 H* 0.046 H* (0.000-0.034) ng/mL Coagulation 04/04/22 04/05/22 Range/Units 17:25 00:10 PT 11.9 (9.0-12.0) sec APTT 26.3 68.9 H (22.0-30.0) sec CBC 04/04/22 Range/Units 17:25 WBC 5.7 (3.8-10.6) k/uL RBC 3.84 L (4.30-5.90) m/uL Hgb 11.8 L (13.0-17.5) gm/dL Hct 37.7 L (39.0-53.0) % Plt Count 104 L (150-450) k/uL Comprehensive Metabolic Panel 04/04/22 Range/Units 17:25 Sodium 138 (137-145) mmol/L Potassium 4.1 (3.5-5.1) mmol/L Chloride 93 L (98-107) mmol/L Carbon Dioxide 37 H (22-30) mmol/L BUN 49 H (9-20) mg/dL Creatinine 1.51 H (0.66-1.25) mg/dL Glucose 98 (74-99) mg/dL Calcium 8.9 (8.4-10.2) mg/dL AST 39 (17-59) U/L ALT 17 (4-49) U/L Alkaline Phosphatase 133 H (38-126) U/L Total Protein 6.3 (6.3-8.2) g/dL Albumin 3.5 (3.5-5.0) g/dL Current Medications Generic Name Dose Route Start Last Admin Trade Name Freq PRN Reason Stop Dose Admin Acetaminophen 650 mg 04/04/22 18:44 Acetaminophen Tab 325 Mg Tab PO Q6HR PRN Mild Pain or Fever > 100.5 Acetaminophen/Codeine Phosphate 1 each 04/05/22 03:49 Acetaminophen-Codeine 300-30mg Tab PO TID PRN Pain Allopurinol 100 mg 04/05/22 09:00 Allopurinol 100 Mg Tab PO BID [facility] Atorvastatin Calcium 80 mg 04/05/22 21:00 Atorvastatin 80 Mg Tab PO HS [facility] Furosemide 40 mg 04/05/22 09:00 Furosemide 10 Mg/Ml 4 Ml Vial IV Q12HR [facility] Gabapentin 800 mg 04/05/22 09:00 Gabapentin 400 Mg Cap PO TID [facility] Heparin Sodium (Porcine) 0 unit 04/04/22 18:09 Heparin Sodium 1,000 Un/Ml (10ml Vl) IV PER PROTOCOL PRN Low PTT Protocol Heparin Sodium/Sodium Chloride 250 mls @ 10.006 mls/hr 04/04/22 18:15 04/05/22 01:17 25,000 unit/ Sodium Chloride IV 9.03 units/kg/hr .Q24H [place] 8.192 mls/hr Titration Protocol 11.03 UNITS/KG/HR Metoprolol Succinate 100 mg 04/05/22 09:00 Metoprolol Succinate (Er) 100 Mg Tab.Er.24h PO DAILY [facility] Naloxone HCl 0.2 mg 04/04/22 18:44 Naloxone 0.4 Mg/Ml 1 Ml Vial IV Q2M PRN Opioid Reversal Sertraline HCl 100 mg 04/05/22 09:00 Sertraline 100 Mg Tab PO BID [facility] Intake and Output 04/04/22 04/05/22 04/05/22 22:59 06:59 14:59 Intake Total 301.537 Output Total 250 Balance 51.537 Intake: Intake, IV Titration 61.537 Amount Heparin Sod,Pork in 0.45% 61.537 NaCl 25,000 unit In 0.45 % NaCl 1 250ml.bag @ 11. 03 UNITS/KG/HR 10.006 mls /hr IV .Q24H [facility] Rx#: [id number] Oral 240 Output: Urine 250 Other: Weight 90.718 kg 102.3 kg 04/04/22 17:25 04/04/22 17:25
[2022-04-05] MEDS: HEPARIN SOD,PORK IN 0.45% NACL 25,000 UNIT in 0.45% NACL 1 250ML.BAG IV SCH (17:50)
--- NOTE | 2022-04-05 17:56 | P.PN ---
Subjective Progress Note Date: 04/05/22 The patient is a 71-year-old male with a PMH of A. alfreda on Eliquis, chronic kidney disease, systolic CHF, COPD with chronic hypoxic respiratory failure on home oxygen, CVA with residual dysphagia status post PEG tube placement, hypertension, and hyperlipidemia who presented to the emergency room with comp laints of bilateral lower extremities pain and swelling. The patient was confused at the time of interview, and thereby history supplemented from the ED provider in the chart. Attempted to contact the person listed as power of senior trial attorney in the chart with no response. The patient reports that he has been experiencing lower extremity swelling and pain of the past 3-4 days. Patient states that his Lasix had recently been increased to 80 mg daily without significant improvement. Also expressed left-sided chest discomfort, 5 out of 10 on maximal intensity, intermittent, with associated shortness of breath. Denied experiencing cough, fever, chills. Upon arrival at the emergency room, the patient's SpO2 was 94% on room air with BP 99/69. EKG in the emergency room revealed a V paced rhythm at 69 bpm. chest x-ray was consistent with CHF exacerbation. Laboratory evaluation was remarkable for troponin of 0.046, with creatinine 1.51 (similar to baseline) and platelet count 104. Patient was seen and examined this morning. No acute events overnight. Patient reports continued shortness of breath. He is currently on 5 L nasal cannula. He denies any chest pain. Physical examination: General: non toxic, no distress, appears at stated age, normal weight Derm: no unusual rashes/lesions, warm Head: atraumatic, normocephalic, symmetric Eyes: EOMI, no lid lag, anicteric sclera ENT: Nose and ears atraumatic Neck: No cervical lymphadenopathy, trachea midline, supple Mouth: no lip lesion, mucus membranes moist Cardiovascular: S1S2 reg, no murmur, positive dorsalis pedis pulse bilateral, 1+ bilateral lower pitting edema Lungs: Scattered rales without rhonchi or wheezing, no accessory muscle use Abdominal: soft, nontender to palpation, no guarding, PEG tube in place Ext: muscle strength 5 out of 5 in all 4 extremities grossly, no gross muscle atrophy, no contractures, bilateral lower extremity venous stasis changes noted Neuro: no gross focal neuro deficits Psych: Alert, oriented to person place only, answering questions appropriately Assessment/plan Acute CHF exacerbation -Continue with Lasix IV -Fluid restriction -Intake output -Cardiology consulted -Cardiac monitoring -Echocardiogram ordered -Monitor electrolytes Troponin elevation -Likely related to CKD -DC Heparin drip -Cardiology consulted, started on Entresto -Troponins flat and ACS ruled out -Continue with aspirin Altered mental status -Suspect delirium -Patient was oriented 3 in the emergency room -Monitor for now Chronic conditions: A. fib, COPD, hypertension, hyperlipidemia -Continue with home meds Objective - Vital Signs Vital signs: Vital Signs Temp 98.3 F 04/05/22 15:18 Pulse 69 04/05/22 15:18 Resp 18 04/05/22 15:18 BP 113/73 04/05/22 15:18 Pulse Ox 99 04/05/22 15:18 FiO2 Intake & Output 04/04/22 04/05/22 04/05/22 18:59 06:59 18:59 Intake Total 301.537 388 Output Total 250 200 Balance 51.537 188 Weight 90.718 kg 102.3 kg Intake: Intake, IV Titration 61.537 Amount Heparin Sod,Pork in 0.45% 61.537 NaCl 25,000 unit In 0.45 % NaCl 1 250ml.bag @ 11. 03 UNITS/KG/HR 10.006 mls /hr IV .Q24H [facility] Rx#: [id number] Oral 240 388 Output: Urine 250 200 Other: Voiding Method Toilet Urinal # Voids 1 - Labs CBC & Chem 7: 04/05/22 08:39 04/05/22 08:39 Labs: Abnormal Lab Results - Last 24 Hours (Table) 04/04/22 04/04/22 04/04/22 Range/Units 17:25 17:25 20:07 RBC (4.30-5.90) m/uL Hgb (13.0-17.5) gm/dL MCHC (31.0-37.0) g/dL RDW (11.5-15.5) % Plt Count (150-450) k/uL INR 1.2 H (<1.2) APTT (22.0-30.0) sec Chloride (98-107) mmol/L Carbon Dioxide (22-30) mmol/L BUN (9-20) mg/dL Creatinine (0.66-1.25) mg/dL Glucose (74-99) mg/dL Troponin I 0.046 H* 0.046 H* (0.000-0.034) ng/mL 04/05/22 04/05/22 04/05/22 Range/Units 00:10 08:39 08:39 RBC 4.03 L (4.30-5.90) m/uL Hgb 11.9 L (13.0-17.5) gm/dL MCHC 29.5 L (31.0-37.0) g/dL RDW 16.9 H (11.5-15.5) % Plt Count 101 L (150-450) k/uL INR 1.2 H (<1.2) APTT 68.9 H 49.3 H (22.0-30.0) sec Chloride (98-107) mmol/L Carbon Dioxide (22-30) mmol/L BUN (9-20) mg/dL Creatinine (0.66-1.25) mg/dL Glucose (74-99) mg/dL Troponin I (0.000-0.034) ng/mL 04/05/22 Range/Units 08:39 RBC (4.30-5.90) m/uL Hgb (13.0-17.5) gm/dL MCHC (31.0-37.0) g/dL RDW (11.5-15.5) % Plt Count (150-450) k/uL INR (<1.2) APTT (22.0-30.0) sec Chloride 96 L (98-107) mmol/L Carbon Dioxide 38 H (22-30) mmol/L BUN 49 H (9-20) mg/dL Creatinine 1.56 H (0.66-1.25) mg/dL Glucose 105 H (74-99) mg/dL Troponin I (0.000-0.034) ng/mL
[2022-04-05] MEDS: APIXABAN 5 MG TAB PO SCH (20:15)
[2022-04-05] MEDS: ATORVASTATIN 80 MG TAB PO SCH (20:15)
[2022-04-06] MEDS: SACUBITRIL/VALSARTAN 24 MG-26 MG TABLET PO SCH (08:29)
[2022-04-06] MEDS: SERTRALINE 100 MG TAB PO SCH ×3 (08:29→21:59)
[2022-04-06] MEDS: GABAPENTIN 400 MG CAP PO SCH ×4 (08:29→21:59)
[2022-04-06] MEDS: APIXABAN 5 MG TAB PO SCH ×3 (08:29→22:00)
[2022-04-06] MEDS: allopurinoL 100 MG TAB PO SCH ×3 (08:30→21:59)
[2022-04-06 08:52] LABS: Anisocytosis Slight; HCT 37.8 % (39.0-53.0); HGB 11.6 gm/dL (13.0-17.5); Hypochromasia Marked; MCH 30.4 pg (25.0-35.0); MCHC 30.7 g/dL (31.0-37.0); MCV 99.2 fL (80.0-100.0); Macrocytosis Slight; Platelet Count 100 k/uL (150-450); Poikilocytosis Slight; RBC 3.81 m/uL (4.30-5.90); RDW 16.9 % (11.5-15.5); WBC 5.2 k/uL (3.8-10.6)
[2022-04-06 09:00] LABS: Calcium 8.8 mg/dL (8.4-10.2); Potassium 4.3 mmol/L (3.5-5.1)
[2022-04-06] MEDS: METOPROLOL SUCCINATE (ER) 100 MG TAB.ER.24H PO SCH (12:02)
--- NOTE | 2022-04-06 13:27 | P.PN ---
Subjective Progress Note Date: 04/06/22 The patient is a 71-year-old male with a PMH of A. 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 The patient was confused at the time of interview, and thereby history supplemented from the ED provider in the chart. Attempted to contact the person listed as power of contracts attorney in the chart with no response. The patient reports that he has been experiencing lower extremity swelling and pain of the past 3-4 days. Patient states that his Lasix had recently been increased to 80 mg daily without significant improvement. Also expressed left-sided chest discomfort, 5 out of 10 on maximal intensity, intermittent, with associated shortness of breath. Denied experiencing cough, fever, chills. Upon arrival at the emergency room, the patient's SpO2 was 94% on room air with BP 99/69. EKG in the emergency room revealed a V paced rhythm at 69 bpm. chest x-ray was consistent with CHF exacerbation. Laboratory evaluation was remarkable for troponin of 0.046, with creatinine 1.51 (similar to baseline) and platelet count 104. Patient was seen and examined this morning. No acute events overnight. Patient reports improvement in his shortness of breath. He is currently on 4 L nasal cannula. He denies any chest pain. Physical examination: General: non toxic, no distress, appears at stated age, normal weight Derm: no unusual rashes/lesions, warm Head: atraumatic, normocephalic, symmetric Eyes: EOMI, no lid lag, anicteric sclera ENT: Nose and ears atraumatic Neck: No cervical lymphadenopathy, trachea midline, supple Mouth: no lip lesion, mucus membranes moist Cardiovascular: S1S2 reg, no murmur, positive dorsalis pedis pulse bilateral, 1+ bilateral lower pitting edema Lungs: Scattered rales without rhonchi or wheezing, no accessory muscle use Abdominal: soft, nontender to palpation, no guarding, PEG tube in place Ext: muscle strength 5 out of 5 in all 4 extremities grossly, no gross muscle atrophy, no contractures, bilateral lower extremity venous stasis changes noted Neuro: no gross focal neuro deficits Psych: Alert, oriented to person place only, answering questions appropriately Assessment/plan Acute on chronic hypoxic respiratory failure Acute CHF exacerbation -Currently on 4L NC, on 3L at home -Unsure about accuracy of daily weights (patient has gained 10+ kg from 04/04 to 04/05) -Fluid restriction -Strict Intake output -Cardiology consulted -Cardiac monitoring -Echocardiogram ordered -Monitor electrolytes Troponin elevation -Likely related to CKD -DC Heparin drip -Cardiology consulted, started on Entresto -Troponins flat and ACS ruled out -Continue with aspirin Altered mental status -Suspect delirium -Patient was oriented 3 in the emergency room -Monitor for now Chronic conditions: A. fib, COPD, hypertension, hyperlipidemia -Continue with home meds Objective - Vital Signs Vital signs: Vital Signs Temp 97.4 F L 04/06/22 11:14 Pulse 69 04/06/22 11:14 Resp 19 04/06/22 11:14 BP 121/74 04/06/22 11:14 Pulse Ox 99 04/06/22 11:14 FiO2 Intake & Output 04/05/22 04/06/22 04/06/22 18:59 06:59 18:59 Intake Total 641.578 240 128 Output Total 200 1000 Balance 441.578 240 -872 Intake: IV 10 Invasive Line 1 10 Intake, IV Titration 135.578 Amount Heparin Sod,Pork in 0.45% 135.578 NaCl 25,000 unit In 0.45 % NaCl 1 250ml.bag @ 11. 03 UNITS/KG/HR 10.006 mls /hr IV .Q24H MO Rx#: [id number] Oral 506 240 118 Output: Urine 200 1000 Other: Voiding Method Toilet Toilet Toilet Urinal Urinal Urinal # Voids 1 2 - Labs CBC & Chem 7: 04/06/22 07:48 04/06/22 07:48 Labs: Abnormal Lab Results - Last 24 Hours (Table) 04/06/22 04/06/22 Range/Units 07:48 07:48 RBC 3.81 L (4.30-5.90) m/uL Hgb 11.6 L (13.0-17.5) gm/dL Hct 37.8 L (39.0-53.0) % MCHC 30.7 L (31.0-37.0) g/dL RDW 16.9 H (11.5-15.5) % Plt Count 100 L (150-450) k/uL Chloride 97 L (98-107) mmol/L Carbon Dioxide 39 H (22-30) mmol/L BUN 55 H (9-20) mg/dL Creatinine 1.90 H (0.66-1.25) mg/dL Glucose 101 H (74-99) mg/dL
--- NOTE | 2022-04-06 14:20 | P.PN ---
Subjective Progress Note Date: 04/06/22 HISTORY OF PRESENTING ILLNESS This is a 71-year-old male past medical history significant for coronary artery disease, ischemic cardiomyopathy status post AICD, hypertension, chronic systolic heart failure, persistent atrial fibrillation on long-term anticoagulation with eliquis, COPD, chronic hypoxic respiratory failure on home O2, and former nicotine dependence. He follows in the office with Dr. Curiel. We have been asked to see in consultation for NSTEMI and CHF exacerbation. Patient presented to the hospital due to bilateral lower extremity pain and swelling along with left-sided chest pain 5/10 with shortness of breath. He complains of cough with sputum production that is chronic. Symptoms have been going on for 3-4 days. Patient received a dose of Lasix 40 mg IV 1 followed by twice daily dosing and was started on a heparin drip. Patient states his breathing status is better from yesterday. EKG BiV paced rhythm Chest x-ray reveals CHF exacerbation WBC 6.5, hemoglobin 11.9, platelet count 101. Potassium 4.4, BUN 49 creatinine 1.56. Troponin 0.046 and 0.046. ProBNP 26,600 / Patient was started on Entresto low-dose yesterday but no that renal function is worsening most likely secondary to IV Lasix. We will hold the evening dose of Entresto and try tomorrow to attempt Entresto. Patient feels that his breathing is better today. Blood pressure 121/74, heart rate in the 60s and 70s. Potassium 4.3, BUN 55 creatinine 1.9. Hemoglobin 11.6, platelet count 100. PHYSICAL EXAMINATION CONSTITUTIONAL: No apparent distress. HEENT: Head is normocephalic. Pupils are equal, round. Sclerae anicteric. Mucous membranes of the mouth are moist. No JVD. No carotid bruit. CHEST EXAMINATION: Diminished bilaterally, expiratory wheezes throughout and bibasilar crackles. No chest wall tenderness is noted on palpation or with deep breathing. HEART EXAMINATION: Regular rate and rhythm. S1, S2 heard. No murmurs, gallops or rub. ABDOMEN: Soft, nontender. EXTREMITIES: 2+ peripheral pulses, no lower extremity edema and no calf tenderness. NEUROLOGIC EXAMINATION: Patient is awake, alert and oriented x3. ASSESSMENT Acute on chronic systolic heart failure Elevated troponin secondary to heart failure and kidney disease Chronic persistent atrial fibrillation Ischemic cardiomyopathy status post AICD Hypertension PLAN Hold IV Lasix. Please hold any diuresing. Hold Entresto today's evening dose and will reattempt Entresto tomorrow Monitor BMP and magnesium No need to repeat echocardiogram as this was done in September. Further recommendations to follow based upon clinical course. Thank you kindly for this consultation. Nurse Practitioner note has been reviewed, I agree with a documented findings and plan of care. Patient was seen and examined. Objective - Vital Signs Vital signs: Vital Signs Temp 97.4 F L 04/06/22 08:23 Pulse 72 04/06/22 08:23 Resp 19 04/06/22 08:23 BP 118/74 04/06/22 08:23 Pulse Ox 97 04/06/22 08:23 FiO2 Intake & Output 04/05/22 04/06/22 04/06/22 18:59 06:59 18:59 Intake Total 641.578 240 128 Output Total 200 Balance 441.578 240 128 Intake: IV 10 Invasive Line 1 10 Intake, IV Titration 135.578 Amount Heparin Sod,Pork in 0.45% 135.578 NaCl 25,000 unit In 0.45 % NaCl 1 250ml.bag @ 11. 03 UNITS/KG/HR 10.006 mls /hr IV .Q24H MO Rx#: [id number] Oral 506 240 118 Output: Urine 200 Other: Voiding Method Toilet Toilet Toilet Urinal Urinal Urinal # Voids 1 - Labs CBC & Chem 7: 04/06/22 07:48 04/06/22 07:48 Labs: Abnormal Lab Results - Last 24 Hours (Table) 04/06/22 04/06/22 Range/Units 07:48 07:48 RBC 3.81 L (4.30-5.90) m/uL Hgb 11.6 L (13.0-17.5) gm/dL Hct 37.8 L (39.0-53.0) % MCHC 30.7 L (31.0-37.0) g/dL RDW 16.9 H (11.5-15.5) % Plt Count 100 L (150-450) k/uL Chloride 97 L (98-107) mmol/L Carbon Dioxide 39 H (22-30) mmol/L BUN 55 H (9-20) mg/dL Creatinine 1.90 H (0.66-1.25) mg/dL Glucose 101 H (74-99) mg/dL
[2022-04-06 16:21] LABS: ABG Base Excess 14.5 mmol/L; ABG Oxygen Saturation 98.3 % (94-97); ABG PH 7.32 (7.35-7.45); ABG PO2 95 mmHg (83-108); ABG TCO2 43 mmol/L (19-24); Allen Test Performed? Yes
[2022-04-06 16:29] LABS: ABG PCO2 80 mmHg (35-45)
[2022-04-06 16:30] LABS: ABG HCO3 41 mmol/L (21-25)
--- NOTE | 2022-04-06 16:46 | XR ---
EXAMINATION TYPE: XR chest 1V portable DATE OF EXAM: 04/06/2022 COMPARISON: 04/04/2022 INDICATION: CHF TECHNIQUE: Single frontal view of the chest is obtained. FINDINGS: The heart size is enlarged. The pulmonary vasculature is dominant. There is streak opacity through the right mid lung may be some fluid within the minor fissure. A smal l right pleural effusion is present, diminished from comparison. Pacemaker overlies the left chest. IMPRESSION: 1. Clinical correlation recommended for congestive heart failure. Continued Follow-up is recommended.
[2022-04-06] MEDS ORDERED: FUROSEMIDE 10 MG/ML 4 ML VIAL IV STA (17:01)
[2022-04-06] MEDS: ATORVASTATIN 80 MG TAB PO SCH (21:46)
[2022-04-07] MEDS: SERTRALINE 100 MG TAB PO SCH ×2 (09:39→20:55)
[2022-04-07] MEDS: APIXABAN 5 MG TAB PO SCH ×2 (09:39→20:54)
[2022-04-07] MEDS: GABAPENTIN 400 MG CAP PO SCH ×3 (09:39→20:55)
[2022-04-07] MEDS: allopurinoL 100 MG TAB PO SCH ×2 (09:39→20:54)
[2022-04-07 11:27] LABS: Anisocytosis Slight; HCT 36.5 % (39.0-53.0); HGB 11.1 gm/dL (13.0-17.5); Hypochromasia Marked; MCH 30.4 pg (25.0-35.0); MCHC 30.5 g/dL (31.0-37.0); MCV 99.8 fL (80.0-100.0); Macrocytosis Slight; Mean Platelet Volume 10.6; Platelet Count 97 k/uL (150-450); RBC 3.66 m/uL (4.30-5.90); RDW 16.6 % (11.5-15.5); WBC 6.1 k/uL (3.8-10.6)
[2022-04-07 11:41] LABS: Calcium 8.6 mg/dL (8.4-10.2); Potassium 4.1 mmol/L (3.5-5.1)
[2022-04-07] MEDS ORDERED: FUROSEMIDE 10 MG/ML 4 ML VIAL IV SCH (12:15)
[2022-04-07] MEDS ORDERED: IPRATROPIUM-ALBUTEROL 3 ML NEB INHALATION STA (12:19)
--- NOTE | 2022-04-07 12:29 | P.CNPUL ---
History of Present Illness Consult date: 04/07/22 Reason for consult: dyspnea History of present illness: I was asked to evaluate this 71-year-old male patient because of hypoxic/hypercapnic respiratory failure. The patient is known to have coronary artery disease, known history of a severe ischemic myopathy with an ejection fraction of 20%, RV failure and the patient has a AICD in place and the patient also has a stage II diastolic heart failure. He has chronic into fibrillation, COPD, chronic hypoxic and hypercapnic respiratory failure is a former smoker. The patient remains in a hospital because of worsening shortness of breath. He also had increased lower extremity swelling. He had some limited cough and sputum production. During this course of his illness, the patient was given a blood gas initially indicating a pH of 7.32 with a pCO2 of 80 and pO2 of 95. Based on that, the patient was placed on BiPAP as the patient was getting short of breath and he was altered and he was having signs of CO2 narcosis. Currently is on a BiPAP at a pressures of 12/5 cm of water and FiO2 of 35%. The. Blood gases are essentially unchanged. Patient at 7.3 with a pO2 of 82 and there is some limited improvement in the oxygenation which is up to 118. He has developed significant metabolic alkalosis. Serum bicarb is up to 41 and his sodium is at 140. The bronchoscope 6.4 with a hemoglobin of 11.1. The viral screen has not been done. Evidence Custodian on the case. In terms of treatment, the patient is currently on IV Lasix 40 mg every 12 hours. He is in atrial fibrillation and the patient is on long-term and cognition without liquids 2.5 mg twice a day. He is taking Toprol-XL 100 mg by mouth daily. Remains on aspirin and he is on DuoNeb nebulized treatments to be taken only on an as- needed basis. 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 sided weakness,cataracts, bruises easily due to coumadin,does not wear cpap,neuropathy moe. feet History of Any Multi-Drug Resistant Organisms: None Reported Past Surgical History: AICD, Heart Catheterization With Stent Additional Past Surgical History / Comment(s): AICD/Pacemaker, PEG tube placed in [address] Anglin in 2019 Past Anesthesia/Blood Transfusion Reactions: No Reported Reaction Date of Last Stent Placement:: unk Type of Cardiac Device: AICD Device Placement Date:: 2009 Past Psychological History: Anxiety, Depression, PTSD Additional Psychological History / Comment(s): PTSD 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 war Smoking Status: Current every day smoker Past Alcohol Use History: None Reported Additional Past Alcohol Use History / Comment(s): states he stopped smoking a pack per day two days ago Past Drug Use History: None Reported - Past Family History Brother(s) Family Medical History: Deep Vein Thrombosis (DVT) Medications and Allergies Home Medications Medication Instructions Recorded Confirmed Type Aspirin [Adult Low Dose Aspirin EC] 81 mg PO DAILY 09/02/17 04/04/22 History Omeprazole [PriLOSEC] 20 mg PO BID 09/02/17 04/04/22 History Sertraline HCl [Zoloft] 100 mg PO BID 09/02/17 04/04/22 History allopurinoL [Zyloprim] 100 mg PO BID 09/02/17 04/04/22 History Acetaminophen-Codeine 300-30mg 1 tab PO TID PRN 04/01/19 04/04/22 History [Tylenol w/codeine #3] Rosuvastatin Calcium [Crestor] 20 mg PO HS 08/20/19 04/04/22 History Albuterol Sulfate [Albuterol 2 puff INHALATION RT-QID PRN 12/27/20 04/04/22 Hi story Sulfate Hfa] Apixaban [Eliquis] 5 mg PO BID 12/27/20 04/04/22 History Jevity 1.5 Jakob Liquid 3 can PO DAILY 12/27/20 04/04/22 History Metoprolol Succinate (ER) [Toprol 100 mg PO DAILY 12/27/20 04/04/22 History XL] Ipratropium-Albuterol Nebulize 3 ml INHALATION RT-QID PRN 02/08/21 04/04/22 History [Duoneb 0.5 mg-3 mg/3 ml Soln] Mag-Ox 420mg 420 mg PO BID 02/08/21 04/04/22 History Gabapentin [Neurontin] 800 mg PO TID 12/28/21 04/04/22 History Furosemide [Lasix] 80 mg PO DAILY 02/15/22 04/04/22 History Allergies Allergy/AdvReac Type Severity Reaction Status Date / Time metolazone [From Zaroxolyn] Allergy Rash/Hives Verified 04/04/22 19:09 warfarin [From Coumadin] Allergy Unknown - Verified 04/04/22 19:09 Per [facility] list fluticasone AdvReac Dyspnea Verified 04/04/22 19:09 [From Wixela Inhub] fluvastatin AdvReac weakness/muscle Verified 04/04/22 19:09 pain rosuvastatin [From Crestor] AdvReac muscle pain Verified 04/04/22 19:09 salmeterol AdvReac Dyspnea Verified 04/04/22 19:09 [From Wixela Inhub] simvastatin AdvReac muscle pain Verified 04/04/22 19:09 sulfamethoxazole AdvReac Abdominal Verified 04/04/22 19:09 [From Bactrim] Pain trimethoprim [From Bactrim] AdvReac Abdominal Verified 04/04/22 19:09 Pain Physical Exam Vitals: Vital Signs Temp Pulse Resp BP Pulse Ox FiO2 04/07/22 09:38 98.0 F 70 18 117/70 98 04/07/22 08:36 35 04/07/22 04:33 35 04/07/22 04:00 98.2 F 69 12 106/70 97 04/07/22 00:00 97.4 F L 73 16 104/68 100 04/06/22 20:00 97.6 F 70 17 94/51 99 04/06/22 17:59 35 04/06/22 15:10 97.4 F L 68 19 111/69 97 Intake and Output 04/06/22 04/07/22 04/07/22 22:59 06:59 14:59 Intake Total 110 Output Total 325 900 Balance -215 -900 Intake: IV 10 Invasive Line 1 10 Oral 100 Output: Urine 325 900 Straight 325 Other: Voiding Method Indwelling Catheter Indwelling Catheter Indwelling Catheter GENERAL EXAM: Alert, very pleasant, 71-year-old o breathing is nonlabored and the patient is currently on BiPAP at a pressures of 12/5 with an FiO2 of 35%. HEAD: Normocephalic/atraumatic. EYES: Normal reaction of pupils, equal size. Conjunctiva pink, sclera white. NOSE: Clear with pink turbinates. THROAT: No erythema or exudates. NECK: No masses, no JVD, no thyroid enlargement, no adenopathy. CHEST: No chest wall deformity. Symmetrical expansion. LUNGS: Equal air entry with no crackles, wheeze, rhonchi or dullness. CVS: Regular rate and rhythm, normal S1 and S2, no gallops, no murmurs, no rubs ABDOMEN: Soft, nontender. No hepatosplenomegaly, normal bowel sounds, no guarding or rigidity. EXTREMITIES: No clubbing, no edema, no cyanosis, 2+ pulses and upper and lower extremities. MUSCULOSKELETAL: Muscle strength and tone normal. SPINE: No scoliosis or deformity SKIN: No rashes CENTRAL NERVOUS SYSTEM: Patient is confused and he is alert and oriented 1. No focal deficits, tone is normal in all 4 extremities. PSYCHIATRIC: Alert and oriented -1. Appropriate affect. Intact judgment and insight. Results - Laboratory Findings CBC and BMP: 04/07/22 10:58 04/07/22 10:58 ABG ABG pH 7.32 (7.35-7.45) L 04/06/22 16:15 ABG pCO2 80 mmHg (35-45) H* 04/06/22 16:15 ABG pO2 95 mmHg (83-108) 04/06/22 16:15 ABG O2 Saturation 98.3 % (94-97) H 04/06/22 16:15 PT/INR, D-dimer PT 12.0 sec (9.0-12.0) 04/05/22 08:39 INR 1.2 (<1.2) H 04/05/22 08:39 Abnormal lab findings: Abnormal Labs 04/04/22 04/04/22 04/04/22 17:25 17:25 17:25 RBC 3.84 L Hgb 11.8 L Hct 37.7 L MCHC RDW 16.4 H Plt Count 104 L Lymphocytes # 0.7 L INR 1.2 H APTT ABG pH ABG pCO2 ABG HCO3 ABG Total CO2 ABG O2 Saturation Chloride 93 L Carbon Dioxide 37 H BUN 49 H Creatinine 1.51 H Glucose Alkaline Phosphatase 133 H Troponin I 04/04/22 04/04/22 04/05/22 17:25 20:07 00:10 RBC Hgb Hct MCHC RDW Plt Count Lymphocytes # INR APTT 68.9 H ABG pH ABG pCO2 ABG HCO3 ABG Total CO2 ABG O2 Saturation Chloride Carbon Dioxide BUN Creatinine Glucose Alkaline Phosphatase Troponin I 0.046 H* 0.046 H* 04/05/22 04/05/22 04/05/22 08:39 08:39 08:39 RBC 4.03 L Hgb 11.9 L Hct MCHC 29.5 L RDW 16.9 H Plt Count 101 L Lymphocytes # INR 1.2 H APTT 49.3 H ABG pH ABG pCO2 ABG HCO3 ABG Total CO2 ABG O2 Saturation Chloride 96 L Carbon Dioxide 38 H BUN 49 H Creatinine 1.56 H Glucose 105 H Alkaline Phosphatase Troponin I 04/06/22 04/06/22 04/06/22 07:48 07:48 16:15 RBC 3.81 L Hgb 11.6 L Hct 37.8 L MCHC 30.7 L RDW 16.9 H Plt Count 100 L Lymphocytes # INR APTT ABG pH 7.32 L ABG pCO2 80 H* ABG HCO3 41 H* ABG Total CO2 43 H ABG O2 Saturation 98.3 H Chloride 97 L Carbon Dioxide 39 H BUN 55 H Creatinine 1.90 H Glucose 101 H Alkaline Phosphatase Troponin I 04/07/22 04/07/22 10:58 10:58 RBC 3.66 L Hgb 11.1 L Hct 36.5 L MCHC 30.5 L RDW 16.6 H Plt Count 97 L Lymphocytes # INR APTT ABG pH ABG pCO2 ABG HCO3 ABG Total CO2 ABG O2 Saturation Chloride Carbon Dioxide 41 H* BUN 56 H Creatinine 1.37 H Glucose Alkaline Phosphatase Troponin I - Diagnostic Findings Chest x-ray: image reviewed Assessment and Plan Plan: Acute on chronic second hypercapnic respiratory failure, essentially related to CHF. The patient has a chest x-ray that shows cardiomegaly and pulmonary edema and small bilateral pleural effusions. ProBNP level is elevated. Most recent echocardiogram that was done on 10/13/2021 showed severe global left ventricular hypokinesis with an ejection fraction of 20% and the patient also had a grade 3 diastolic dysfunction. The patient also has severe RV dilatation and mild degree of pulmonary hypertension. The patient is currently on BiPAP at a pressures of 12/5 cm of water with an FiO2 of 35% Right lower lobe atelectasis based on chest x-ray from 04/06/2022 chronic obstructive pulmonary disease, chronic, with a component of chronic hypercapneic respiratory failure, compensated History of severe ischemic cardiomyopathy with ejection fraction less than 20% History of AICD placement Coronary artery disease with previous stent placement History of CVA with residual expressive aphasia and right-sided weakness Hypertension CKD, stage 3 Hyperlipidemia Chronic atrial fibrillation, anticoagulant with Eliquis History of gout Chronic and ongoing tobacco dependence History of daily alcohol use History of dysphagia secondary to the CVA with previous PEG tube insertion and subsequent removal Hearing disorder Plan Treatment in general is appropriate. I would suggest the following. Continue BiPAP at a pressures of 12/5 cm of water and FiO2 of 35%. Increase the Lasix to 40 mg IV every 8 hours and add Diamox 500 mg by mouth twice a day to counteract the metabolic alkalosis that the patient has encountered during diuresis Continue beta blockers Continue anticoagulation with Eliquis Monitor mental status Keep the Hardin catheter in place Cor status is full. I suggest a change in his cor status as the patient is quite debilitated and his long-term prognosis is extremely poor.
--- NOTE | 2022-04-07 12:32 | P.PN ---
Subjective Progress Note Date: 04/07/22 The patient is a 71-year-old male with a PMH of A. fib on Eliquis, chronic kidney disease, systolic CHF, COPD with chronic hypoxic respiratory failure on home oxygen, CVA with residual dysphagia status post PEG tube placement, hypertension, and hyperlipidemia who presented to the emergency room with compl aints of bilateral lower extremities pain and swelling. The patient was confused at the time of interview, and thereby history supplemented from the ED provider in the chart. Attempted to contact the person listed as power of patent attorney in the chart with no response. The patient reports that he has been experiencing lower extremity swelling and pain of the past 3-4 days. Patient states that his Lasix had recently been increased to 80 mg daily without significant improvement. Also expressed left-sided chest discomfort, 5 out of 10 on maximal intensity, intermittent, with associated shortness of breath. Denied experiencing cough, fever, chills. Upon arrival at the emergency room, the patient's SpO2 was 94% on room air with BP 99/69. EKG in the emergency room revealed a V paced rhythm at 69 bpm. chest x-ray was consistent with CHF exacerbation. Laboratory evaluation was remarkable for troponin of 0.046, with creatinine 1.51 (similar to baseline) and platelet count 104. Patient is admitted for CHF exacerbation. He was started on Lasix 40 mg IV daily. Strict intake and output was ordered along with daily weights. Cardiology was consulted and discontinued Lasix. Cardiology started Entresto which was discontinued due to worsening renal function. Patient was noted to have worsening mentation with increasing bicarb on 04/06. ABG was ordered which shows pH 7.32, pCO2 80 and HCO3 39. He was given 40 mg of IV Lasix and started on BiPAP overnight at 12. Patient was seen and examined this morning. No acute events overnight. Patient reports improvement in his shortness of breath. He is currently on 4 L nasal cannula. He is pleasantly confused. Mentation improved from yesterday. Physical examination: General: non toxic, no distress, appears at stated age, normal weight Derm: no unusual rashes/lesions, warm Head: atraumatic, normocephalic, symmetric Eyes: EOMI, no lid lag, anicteric sclera ENT: Nose and ears atraumatic Neck: No cervical lymphadenopathy, trachea midline, supple Mouth: no lip lesion, mucus membranes moist Cardiovascular: S1S2 reg, no murmur, positive dorsalis pedis pulse bilateral, 1+ bilateral lower pitting edema Lungs: Scattered rales without rhonchi or wheezing, no accessory muscle use Abdominal: soft, nontender to palpation, no guarding, PEG tube in place Ext: muscle strength 5 out of 5 in all 4 extremities grossly, no gross muscle a trophy, no contractures, bilateral lower extremity venous stasis changes noted Neuro: no gross focal neuro deficits Psych: Alert, oriented to person place only, answering questions appropriately #Acute on chronic hypoxic hypercapnic respiratory failure -Currently on 4L NC, on 3L at home -Cardiac monitoring -Repeat ABG ordered today #Acute CHF exacerbation -Lasix 40 mg IV BID -Unsure about accuracy of daily weights (patient has gained 10+ kg from 04/04 to 04/05) -Fluid restriction -Strict Intake output -Cardiology recommending holding off on diuresis -Cardiology recommendations appreciated #COPD exacerbation -Please continue BiPAP at all times except for when eating -Pulmonology consulted -DuoNeb as needed for SOB/wheezing #Troponin elevation -Likely related to CKD -DC Heparin drip -Cardiology on board -Troponins flat and ACS ruled out -Continue with aspirin #Acute metabolic encephalopathy -Likely related to CO2 narcosis -Degree with Diamox started by pulmonology Chronic conditions: A. fib, hypertension, hyperlipidemia -Continue with home meds Objective - Vital Signs Vital signs: Vital Signs Temp 98.0 F 04/07/22 09:38 Pulse 70 04/07/22 09:38 Resp 18 04/07/22 09:38 BP 117/70 04/07/22 09:38 Pulse Ox 98 04/07/22 09:38 FiO2 35 04/07/22 08:36 Intake & Output 04/06/22 04/07/22 04/07/22 18:59 06:59 18:59 Intake Total 238 10 Output Total 1325 900 Balance -1087 -890 Intake: IV 20 10 Invasive Line 1 20 10 Oral 218 Output: Urine 1325 900 Straight 325 Other: Voiding Method Toilet Indwelling Catheter Indwelling Catheter Urinal # Voids 2 - Labs CBC & Chem 7: 04/07/22 10:58 04/07/22 10:58 Labs: Abnormal Lab Results - Last 24 Hours (Table) 04/06/22 04/07/22 04/07/22 Range/Units 16:15 10:58 10:58 RBC 3.66 L (4.30-5.90) m/uL Hgb 11.1 L (13.0-17.5) gm/dL Hct 36.5 L (39.0-53.0) % MCHC 30.5 L (31.0-37.0) g/dL RDW 16.6 H (11.5-15.5) % Plt Count 97 L (150-450) k/uL ABG pH 7.32 L (7.35-7.45) ABG pCO2 80 H* (35-45) mmHg ABG HCO3 41 H* (21-25) mmol/L ABG Total CO2 43 H (19-24) mmol/L ABG O2 Saturation 98.3 H (94-97) % Carbon Dioxide 41 H* (22-30) mmol/L BUN 56 H (9-20) mg/dL Creatinine 1.37 H (0.66-1.25) mg/dL
--- NOTE | 2022-04-07 13:40 | P.PN ---
Subjective Progress Note Date: 04/07/22 The patient is 71-year-old male who follows in the office with Dr. Flores. He was admitted for acute heart failure exacerbation. He was given several doses of IV Lasix and then was started on Entresto. His creatinine peaked at 1.7, therefore contrast to has been held for the last 24 hours. He was interviewed and examined lying comfortably in bed. He states he is feeling better since his admission but states he would have shortness of breath. He got up and walked around the unit. He also reports some discomfort in his legs. GENERAL: Well-appearing, well-nourished and in no acute distress. NECK: Supple without JVD or thyromegaly. LUNGS: Breath sounds diminished to auscultation bilaterally. Respiration equal and unlabored. Fine crackles in the left lung base HEART: Irregular rate and rhythm without murmurs, rubs or gallops. S1 and S2 heard. EXTREMITIES: Normal range of motion, mild edema. Chronic discoloration No clubbing or cyanosis. Weak pulses. VITALS: Blood pressure 117/70, pulse 70, respiratory rate 18, temp 98F, SpO2 98% on 4 L nasal cannula TELEMETRY: Sinus rhythm overnight LABS: WBC 6.1, hemoglobin 11.1, hematocrit 36.5, platelet 97, sodium 140, potassium 4.1, BUN 56, creatinine 1.37 IMPRESSION: Acute on chronic systolic heart failure Elevated troponin secondary to heart failure and kidney disease Persistent atrial fibrillation, on anticoagulation Ischemic cardiomyopathy, status post AICD Hypertension Acute kidney injury PLAN: Resume Entresto Continue to monitor kidney function Consider Farxiga Further recommendations based on clinical course I am dictating on behalf of Dr Gary Prather's history/physical and assessment/plan. Objective - Vital Signs Vital signs: Vital Signs Temp 98.0 F 04/07/22 09:38 Pulse 77 04/07/22 12:43 Resp 18 04/07/22 09:38 BP 117/70 04/07/22 09:38 Pulse Ox 98 04/07/22 09:38 FiO2 35 04/07/22 12:30 Intake & Output 04/06/22 04/07/22 04/07/22 18:59 06:59 18:59 Intake Total 238 10 118 Output Total 1325 900 Balance -1087 -890 118 Intake: IV 20 10 Invasive Line 1 20 10 Oral 218 118 Output: Urine 1325 900 Straight 325 Other: Voiding Method Toilet Indwelling Catheter Indwelling Catheter Urinal # Voids 2 - Labs CBC & Chem 7: 04/07/22 10:58 04/07/22 10:58 Labs: Abnormal Lab Results - Last 24 Hours (Table) 04/06/22 04/07/22 04/07/22 Range/Units 16:15 10:58 10:58 RBC 3.66 L (4.30-5.90) m/uL Hgb 11.1 L (13.0-17.5) gm/dL Hct 36.5 L (39.0-53.0) % MCHC 30.5 L (31.0-37.0) g/dL RDW 16.6 H (11.5-15.5) % Plt Count 97 L (150-450) k/uL ABG pH 7.32 L (7.35-7.45) ABG pCO2 80 H* (35-45) mmHg ABG HCO3 41 H* (21-25) mmol/L ABG Total CO2 43 H (19-24) mmol/L ABG O2 Saturation 98.3 H (94-97) % Carbon Dioxide 41 H* (22-30) mmol/L BUN 56 H (9-20) mg/dL Creatinine 1.37 H (0.66-1.25) mg/dL
[2022-04-07] MEDS: METOPROLOL SUCCINATE (ER) 100 MG TAB.ER.24H PO SCH (14:06)
[2022-04-07] MEDS: FUROSEMIDE 10 MG/ML 4 ML VIAL IV SCH ×2 (14:06→17:31)
[2022-04-07] MEDS: acetaZOLAMIDE 250 MG TAB PO SCH ×2 (14:06→20:54)
[2022-04-07 15:13] LABS: ABG Base Excess 15.7 mmol/L; ABG Oxygen Saturation 99.2 % (94-97); ABG PH 7.31 (7.35-7.45); ABG PO2 118 mmHg (83-108); ABG TCO2 45 mmol/L (19-24); Allen Test Performed? Yes
[2022-04-07 15:16] LABS: ABG PCO2 83 mmHg (35-45)
[2022-04-07 15:17] LABS: ABG HCO3 42 mmol/L (21-25)
[2022-04-07] MEDS: SACUBITRIL/VALSARTAN 24 MG-26 MG TABLET PO SCH (20:54)
[2022-04-07] MEDS: ATORVASTATIN 80 MG TAB PO SCH (20:55)
[2022-04-08] MEDS: FUROSEMIDE 10 MG/ML 4 ML VIAL IV SCH ×2 (00:22→08:11)
[2022-04-08] MEDS: PANTOPRAZOLE 40 MG TABLET PO SCH (06:29)
[2022-04-08] MEDS: ASPIRIN 81 MG PO SCH (08:03)
[2022-04-08] MEDS: SERTRALINE 100 MG TAB PO SCH ×2 (08:03→21:04)
[2022-04-08] MEDS: SACUBITRIL/VALSARTAN 24 MG-26 MG TABLET PO SCH (08:03)
[2022-04-08] MEDS: GABAPENTIN 400 MG CAP PO SCH ×3 (08:03→21:04)
[2022-04-08] MEDS: acetaZOLAMIDE 250 MG TAB PO SCH ×2 (08:03→21:03)
[2022-04-08] MEDS: APIXABAN 5 MG TAB PO SCH ×2 (08:03→21:03)
[2022-04-08] MEDS: allopurinoL 100 MG TAB PO SCH ×2 (08:03→21:03)
[2022-04-08] MEDS: IPRATROPIUM-ALBUTEROL 3 ML NEB INHALATION PRN ×4 (08:27→20:49)
--- NOTE | 2022-04-08 10:30 | P.PN ---
Subjective Progress Note Date: 04/08/22 I was asked to evaluate this 71-year-old male patient because of hypoxic/hyperc apnic respiratory failure. The patient is known to have coronary artery disease, known history of a severe ischemic myopathy with an ejection fraction of 20%, RV failure and the patient has a AICD in place and the patient also has a stage II diastolic heart failure. He has chronic into fibrillation, COPD, chronic hypoxic and hypercapnic respiratory failure is a former smoker. The patient remains in a hospital because of worsening shortness of breath. He also had increased lower extremity swelling. He had some limited cough and sputum production. During this course of his illness, the patient was given a blood gas initially indicating a pH of 7.32 with a pCO2 of 80 and pO2 of 95. Based on that, the patient was placed on BiPAP as the patient was getting short of breath and he was altered and he was having signs of CO2 narcosis. Currently is on a BiPAP at a pressures of 12/5 cm of water and FiO2 of 35%. The. Blood gases are essentially unchanged. Patient at 7.3 with a pO2 of 82 and there is some limited improvement in the oxygenation which is up to 118. He has developed significant metabolic alkalosis. Serum bicarb is up to 41 and his sodium is at 140. The bronchoscope 6.4 with a hemoglobin of 11.1. The viral screen has not been done. [employer] Machine Tender on the case. In terms of treatment, the patient is currently on IV Lasix 40 mg every 12 hours. He is in atrial fibrillation and the patient is on long-term and cognition without liquids 2.5 mg twice a day. He is taking Toprol-XL 100 mg by mouth daily. Remains on aspirin and he is on DuoNeb nebulized treatments to be taken only on an as-needed basis. 04/08/2022, the patient is feeling well. No signs of any CO2 narcosis. The patient is being treated for CHF and acute on chronic hypoxic and hypercapnic respiratory failure. The patient is on Lasix for now. He is on 4 L of oxygen by nasal cannula with a pulse ox of 98%. Overall fluid balance over the past 24 hours is -2.9 L. The patient's serum bicarbs of 41 with a sodium level of 140 and a potassium level of 4.1. The w diuretics bc 6.4 with a hemoglobin of 11.1. The patient's diuretics and form of Lasix 40 mg IV every 8 hours. He is currently on oxygen at 4 L with a pulse ox of 90%.His feet a lot Objective - Vital Signs Vital signs: Vital Signs Temp 97.8 F 04/08/22 08:00 Pulse 80 04/08/22 08:42 Resp 16 04/08/22 08:00 BP 111/71 04/08/22 08:00 Pulse Ox 98 04/08/22 08:00 FiO2 35 04/08/22 04:19 Intake & Output 04/07/22 04/08/22 04/08/22 18:59 06:59 18:59 Intake Total 118 118 118 Output Total 900 2320 650 Balance -089 -1544 -163 Weight 100.1 kg Intake: Oral 118 118 118 Output: Urine 900 2320 650 Other: Voiding Method Indwelling Catheter Indwelling Catheter - Exam GENERAL EXAM: Alert, very pleasant, 71-year-old o breathing is nonlabored and the patient is currently on 4 liters. HEAD: Normocephalic/atraumatic. EYES: Normal reaction of pupils, equal size. Conjunctiva pink, sclera white. NOSE: Clear with pink turbinates. THROAT: No erythema or exudates. NECK: No masses, no JVD, no thyroid enlargement, no adenopathy. CHEST: No chest wall deformity. Symmetrical expansion. LUNGS: Equal air entry with no crackles, wheeze, rhonchi or dullness. CVS: Regular rate and rhythm, normal S1 and S2, no gallops, no murmurs, no rubs ABDOMEN: Soft, nontender. No hepatosplenomegaly, normal bowel sounds, no guarding or rigidity. EXTREMITIES: No clubbing, no edema, no cyanosis, 2+ pulses and upper and lower extremities. MUSCULOSKELETAL: Muscle strength and tone normal. SPINE: No scoliosis or deformity SKIN: No rashes CENTRAL NERVOUS SYSTEM: Patient is confused and he is alert and oriented 1. No focal deficits, tone is normal in all 4 extremities. PSYCHIATRIC: Alert and oriented -1. Appropriate affect. Intact judgment and insight. - Labs CBC & Chem 7: 04/07/22 10:58 04/07/22 10:58 Labs: Abnormal Lab Results - Last 24 Hours (Table) 04/07/22 04/07/22 04/07/22 Range/Units 10:58 10:58 11:42 RBC 3.66 L (4.30-5.90) m/uL Hgb 11.1 L (13.0-17.5) gm/dL Hct 36.5 L (39.0-53.0) % MCHC 30.5 L (31.0-37.0) g/dL RDW 16.6 H (11.5-15.5) % Plt Count 97 L (150-450) k/uL ABG pH 7.31 L (7.35-7.45) ABG pCO2 83 H* (35-45) mmHg ABG pO2 118 H (83-108) mmHg ABG HCO3 42 H* (21-25) mmol/L ABG Total CO2 45 H (19-24) mmol/L ABG O2 Saturation 99.2 H (94-97) % Carbon Dioxide 41 H* (22-30) mmol/L BUN 56 H (9-20) mg/dL Creatinine 1.37 H (0.66-1.25) mg/dL Assessment and Plan Plan: Acute on chronic second hypercapnic respiratory failure, essentially related to CHF. The patient has a chest x-ray that shows cardiomegaly and pulmonary edema and small bilateral pleural effusions. ProBNP level is elevated. Most recent e chocardiogram that was done on 10/13/2021 showed severe global left ventricular hypokinesis with an ejection fraction of 20% and the patient also had a grade 3 diastolic dysfunction. Unable to diuretics and the patient's serum bicarbs of 41 and the patient remains on a combination of Lasix and Aldactone. Overall fluid balance is -2.9 L. 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 Continue BiPAP at a pressures of 12/5 cm of water and FiO2 of 35%. This will be used overnight meanwhile the patient is on oxygen at 4 L per minute nasal cannula Continue the Lasix was this patient to oral Lasix 40 mg twice a day. Awaiting labs. Discontinue the Diamox if there is no significant alkalosis. Continue beta blockers Continue anticoagulation with Eliquis Monitor mental status Keep the Hardin catheter in place Code status is full. I suggest a change in his cor status as the patient is quite debilitated and his long-term prognosis is extremely poor.
[2022-04-08 11:22] LABS: Calcium 8.6 mg/dL (8.4-10.2); Potassium 4.1 mmol/L (3.5-5.1)
[2022-04-08 11:25] LABS: Anisocytosis Slight; HCT 35.7 % (39.0-53.0); HGB 10.8 gm/dL (13.0-17.5); Hypochromasia Marked; MCH 30.4 pg (25.0-35.0); MCHC 30.4 g/dL (31.0-37.0); MCV 100.1 fL (80.0-100.0); Macrocytosis Slight; Mean Platelet Volume 11.2; RBC 3.56 m/uL (4.30-5.90); RDW 16.8 % (11.5-15.5); WBC 5.3 k/uL (3.8-10.6)
[2022-04-08 11:26] LABS: Platelet Count 81 k/uL (150-450)
--- NOTE | 2022-04-08 12:13 | P.PN ---
Subjective Progress Note Date: 04/08/22 The patient is a 71-year-old male with a PMH of A. fib on Eliquis, chronic kidney disease, systolic CHF, COPD with chronic hypoxic respiratory failure on home oxygen, CVA with residual dysphagia status post PEG tube placement, hypertension, and hyperlipidemia who presented to the emergency room with compl aints of bilateral lower extremities pain and swelling. The patient was confused at the time of interview, and thereby history supplemented from the ED provider in the chart. Attempted to contact the person listed as power of casting molder in the chart with no response. The patient reports that he has been experiencing lower extremity swelling and pain of the past 3-4 days. Patient states that his Lasix had recently been increased to 80 mg daily without significant improvement. Also expressed left-sided chest discomfort, 5 out of 10 on maximal intensity, intermittent, with associated shortness of breath. Denied experiencing cough, fever, chills. Upon arrival at the emergency room, the patient's SpO2 was 94% on room air with BP 99/69. EKG in the emergency room revealed a V paced rhythm at 69 bpm. chest x-ray was consistent with CHF exacerbation. Laboratory evaluation was remarkable for troponin of 0.046, with creatinine 1.51 (similar to baseline) and platelet count 104. Patient is admitted for CHF exacerbation. He was started on Lasix 40 mg IV daily. Strict intake and output was ordered along with daily weights. Cardiology was consulted and discontinued Lasix. Cardiology started Entresto which was discontinued due to worsening renal function. Patient was noted to have worsening mentation with increasing bicarb on 04/06. ABG was ordered which shows pH 7.32, pCO2 80 and HCO3 39. He was given 40 mg of IV Lasix and started on BiPAP overnight at 03/05. Repeat ABG on 04/07 showed pH 7.31, pCO2 83 and HCO3 41. Pulmonology was consulted and patient was restarted on Lasix 40 mg IV Q8H along with Diamox. Patient was seen and examined this morning. No acute events overnight. Patient reports improvement in his shortness of breath. He is currently on 4 L nasal cannula. He is pleasantly confused. Mentation improved from 2 days ago. Case was discussed with DENZEL Yan, who stated that patient had not been receiving BiPAP support over the last 2 days as there was a cap placed on the tubing. General: non toxic, no distress, appears at stated age, normal weight Derm: no unusual rashes/lesions, warm Head: atraumatic, normocephalic, symmetric Eyes: EOMI, no lid lag, anicteric sclera ENT: Nose and ears atraumatic Neck: No cervical lymphadenopathy, trachea midline, supple Mouth: no lip lesion, mucus membranes moist Cardiovascular: S1S2 reg, no murmur, positive dorsalis pedis pulse bilateral, 1+ bilateral lower pitting edema Lungs: Scattered rales without rhonchi or wheezing, no accessory muscle use Abdominal: soft, nontender to palpation, no guarding, PEG tube in place Ext: muscle strength 5 out of 5 in all 4 extremities grossly, no gross muscle atrophy, no contractures, bilateral lower extremity venous stasis changes noted Neuro: no gross focal neuro deficits Psych: Alert, oriented to person place only #Acute on chronic hypoxic hypercapnic respiratory failure #Respiratory acidosis -Currently on 4L NC, on 3L at home -Cardiac monitoring -Case was discussed with RN Farrah, who stated that patient had not been receiving BiPAP support over the last 2 days as there was a cap placed on the tubing #Acute CHF exacerbation -~ 3.5L output since 1.7 -Case discussed extensively with Dr. Richardson, switch Lasix 40 mg IV Q8H to 40 mg PO BID, continue Diamox, continue to monitor. -Fluid restriction -Strict Intake output -Cardiology recommendations appreciated #COPD exacerbation -Please continue BiPAP at all times except for when eating -Pulmonology recommendations appreciated -DuoNeb as needed for SOB/wheezing #Troponin elevation -Likely related to CKD -Heparin drip discontinued -Cardiology on board -Troponins flat and ACS ruled out -Continue with aspirin #Acute metabolic encephalopathy -Likely related to CO2 narcosis -Agree with Diamox started by pulmonology Chronic conditions: A. fib, hypertension, hyperlipidemia, CKD -Continue with home meds Patient's respiratory status has significantly improved. He is back on his baseline 3-4L home O2. Continues to be confused which is not baseline as per . Continue BiPAP and repeat ABG and BMP tomorrow morning. PT and OT consulted to work with this patient. Objective - Vital Signs Vital signs: Vital Signs Temp 97.8 F 04/08/22 08:00 Pulse 80 04/08/22 08:42 Resp 16 04/08/22 08:00 BP 111/71 04/08/22 08:00 Pulse Ox 98 04/08/22 08:00 FiO2 35 04/08/22 04:19 Intake & Output 04/07/22 04/08/22 04/08/22 18:59 06:59 18:59 Intake Total 118 118 118 Output Total 900 2320 650 Balance -782 -2202 -532 Weight 100.1 kg Intake: Oral 118 118 118 Output: Urine 900 2320 650 Other: Voiding Method Indwelling Catheter Indwelling Catheter Indwelling Catheter - Labs CBC & Chem 7: 04/08/22 10:42 04/08/22 10:42 Labs: Abnormal Lab Results - Last 24 Hours (Table) 04/07/22 04/08/22 04/08/22 Range/Units 11:42 10:42 10:42 RBC 3.56 L (4.30-5.90) m/uL Hgb 10.8 L (13.0-17.5) gm/dL Hct 35.7 L (39.0-53.0) % MCV 100.1 H (80.0-100.0) fL MCHC 30.4 L (31.0-37.0) g/dL RDW 16.8 H (11.5-15.5) % Plt Count 81 L (150-450) k/uL ABG pH 7.31 L (7.35-7.45) ABG pCO2 83 H* (35-45) mmHg ABG pO2 118 H (83-108) mmHg ABG HCO3 42 H* (21-25) mmol/L ABG Total CO2 45 H (19-24) mmol/L ABG O2 Saturation 99.2 H (94-97) % Carbon Dioxide 40 H (22-30) mmol/L BUN 49 H (9-20) mg/dL Creatinine 1.62 H (0.66-1.25) mg/dL Glucose 117 H (74-99) mg/dL
[2022-04-08] MEDS: METOPROLOL SUCCINATE (ER) 100 MG TAB.ER.24H PO SCH (12:50)
--- NOTE | 2022-04-08 12:51 | P.PN ---
Subjective Progress Note Date: 04/08/22 The patient is 71-year-old male who follows in the office with Dr. Flores. He was admitted for acute heart failure exacerbation. He was given several doses of IV Lasix and then was started on Entresto, causing his creatinine to peak. His diuretics were held for 24 hours with improvement in his creatinine level, however were resumed by pulmonology the same day we resumed his Entresto. He was interviewed and examined lying comfortably in bed. He states he is feeling better since his admission but states he would have shortness of breath. He also reports some discomfort in his legs. GENERAL: Well-appearing, well-nourished and in no acute distress. NECK: Supple without JVD or thyromegaly. LUNGS: Breath sounds diminished to auscultation bilaterally. Respiration equal and unlabored. Fine crackles in the left lung base HEART: Irregular rate and rhythm without murmurs, rubs or gallops. S1 and S2 heard. EXTREMITIES: Normal range of motion, mild edema. Chronic discoloration No clubbing or cyanosis. Weak pulses. VITALS: Blood pressure 111/71, respiratory rate 16, pulse 71, afebrile, SpO2 90% on 4 L nasal cannula TELEMETRY: Sinus rhythm overnight LABS: WBC 5.3, hemoglobin 10.8, hematocrit 35.7, platelet 81, sodium 139, potassium 4.1, BUN 49, creatinine 1.62 IMPRESSION: Acute on chronic systolic heart failure Elevated troponin secondary to heart failure and kidney disease Persistent atrial fibrillation, on anticoagulation Ischemic cardiomyopathy, status post AICD Hypertension Acute kidney injury PLAN: The patient has failed good medical treatment for congestive heart failure It is recommended that diuretics be held as it causes a rise in his creatinine level and he be started on Entresto for afterload reduction Diuretic use is not a good long-term strategy, as he will continue to have recurrent congestive heart failure admissions I am dictating on behalf of Dr Gary Prather's history/physical and assessment/plan. Objective - Vital Signs Vital signs: Vital Signs Temp 97.8 F 04/08/22 08:00 Pulse 78 04/08/22 12:38 Resp 16 04/08/22 08:00 BP 111/71 04/08/22 08:00 Pulse Ox 98 04/08/22 08:00 FiO2 35 04/08/22 04:19 Intake & Output 04/07/22 04/08/22 04/08/22 18:59 06:59 18:59 Intake Total 118 118 118 Output Total 900 2320 650 Balance -925 -8155 -333 Weight 100.1 kg Intake: Oral 118 118 118 Output: Urine 900 2320 650 Other: Voiding Method Indwelling Catheter Indwelling Catheter Indwelling Catheter - Labs CBC & Chem 7: 04/08/22 10:42 04/08/22 10:42 Labs: Abnormal Lab Results - Last 24 Hours (Table) 04/07/22 04/08/22 04/08/22 Range/Units 11:42 10:42 10:42 RBC 3.56 L (4.30-5.90) m/uL Hgb 10.8 L (13.0-17.5) gm/dL Hct 35.7 L (39.0-53.0) % MCV 100.1 H (80.0-100.0) fL MCHC 30.4 L (31.0-37.0) g/dL RDW 16.8 H (11.5-15.5) % Plt Count 81 L (150-450) k/uL ABG pH 7.31 L (7.35-7.45) ABG pCO2 83 H* (35-45) mmHg ABG pO2 118 H (83-108) mmHg ABG HCO3 42 H* (21-25) mmol/L ABG Total CO2 45 H (19-24) mmol/L ABG O2 Saturation 99.2 H (94-97) % Carbon Dioxide 40 H (22-30) mmol/L BUN 49 H (9-20) mg/dL Creatinine 1.62 H (0.66-1.25) mg/dL Glucose 117 H (74-99) mg/dL
[2022-04-08] MEDS: FUROSEMIDE 40 MG TAB PO SCH (16:45)
[2022-04-08 18:29] LABS: Calcium 8.4 mg/dL (8.4-10.2); Potassium 4.2 mmol/L (3.5-5.1)
[2022-04-08] MEDS: ATORVASTATIN 80 MG TAB PO SCH (21:03)
[2022-04-09] MEDS: PANTOPRAZOLE 40 MG TABLET PO SCH (06:53)
[2022-04-09 07:49] LABS: Anisocytosis Slight; HGB 10.6 gm/dL (13.0-17.5); Hypochromasia Marked; MCH 30.1 pg (25.0-35.0); MCHC 30.2 g/dL (31.0-37.0); MCV 99.6 fL (80.0-100.0); Macrocytosis Slight; Mean Platelet Volume 11.1; RBC 3.51 m/uL (4.30-5.90); RDW 16.8 % (11.5-15.5); WBC 4.3 k/uL (3.8-10.6)
[2022-04-09 07:57] LABS: Platelet Count 88 k/uL (150-450)
[2022-04-09 08:00] LABS: Calcium 8.5 mg/dL (8.4-10.2); Potassium 4.1 mmol/L (3.5-5.1)
[2022-04-09] MEDS: GABAPENTIN 400 MG CAP PO SCH ×3 (08:11→21:14)
[2022-04-09] MEDS: acetaZOLAMIDE 250 MG TAB PO SCH ×2 (08:11→21:14)
[2022-04-09] MEDS: ASPIRIN 81 MG PO SCH (08:11)
[2022-04-09] MEDS: APIXABAN 5 MG TAB PO SCH ×2 (08:12→21:14)
[2022-04-09] MEDS: SERTRALINE 100 MG TAB PO SCH ×2 (08:12→21:15)
[2022-04-09] MEDS: allopurinoL 100 MG TAB PO SCH ×2 (08:12→21:14)
[2022-04-09] MEDS: FUROSEMIDE 40 MG TAB PO SCH ×2 (08:12→17:10)
--- NOTE | 2022-04-09 09:45 | P.PN ---
Subjective Progress Note Date: 04/09/22 HISTORY OF PRESENT ILLNESS: The patient is 71-year-old male who follows in the office with Dr. Flores. He was admitted for acute heart failure exacerbation. He was given several doses of IV Lasix and then was started on Entresto, causing his creatinine to peak. His diuretics were held for 24 hours with improvement in his creatinine level, however were resumed by pulmonology the same day we resumed his Entresto. He was interviewed and examined lying comfortably in bed. He states he is feeling better since his admission but states he would have shortness of breath. He also reports some discomfort in his legs. 04/09/2022 Patient examined this morning at the bedside. Patient denies chest pain or pressure. He reports improvement in his shortness of breath. He remains on oral lasix 40mg BID. Creatinine today is 1.78. Telemetry reveals paced rhythm. PHYSICAL EXAM: VITAL SIGNS: Reviewed. GENERAL: Well-developed in no acute distress. NECK: Supple. No JVD or thyromegaly LUNGS: Respirations even and unlabored. Lungs diminished with a few crackles bilaterally. HEART: Regular rate and rhythm. S1 and S2 heard. EXTREMITIES: Normal range of motion. No clubbing or cyanosis. Peripheral pulses intact. Trace lower extremity edema ASSESSMENT: Acute on chronic congestive heart failure with reduced EF, EF 20% Elevated troponin secondary to heart failure and kidney disease Persistent atrial fibrillation, on anticoagulation Ischemic cardiomyopathy, status post AICD Hypertension Acute kidney injury, worsened with IV diuresis PLAN: Continue current cardiac medications Daily weights, accurate I&O, and monitoring of kidney function Recommend Entresto Further recommendations pending patient course Patient to follow up outpatient with Dr. Curiel Nurse practitioner note has been reviewed by physician. Signing provider agrees with the documented findings, assessment, and plan of care. Objective - Vital Signs Vital signs: Vital Signs Temp 97.6 F 04/09/22 08:10 Pulse 71 04/09/22 08:10 Resp 17 04/09/22 08:10 BP 94/63 04/09/22 08:10 Pulse Ox 94 L 04/09/22 08:10 FiO2 35 04/09/22 04:00 Intake & Output 04/08/22 04/09/22 04/09/22 18:59 06:59 18:59 Intake Total 236 222 720 Output Total 2150 1700 525 Balance -1914 -1478 195 Weight 97.5 kg Intake: Oral 236 222 720 Output: Urine 2150 1700 525 Other: Voiding Method Indwelling Catheter Indwelling Catheter Indwelling Catheter - Labs CBC & Chem 7: 04/09/22 07:02 04/09/22 07:02 Labs: Abnormal Lab Results - Last 24 Hours (Table) 04/08/22 04/08/22 04/08/22 Range/Units 10:42 10:42 17:20 RBC 3.56 L (4.30-5.90) m/uL Hgb 10.8 L (13.0-17.5) gm/dL Hct 35.7 L (39.0-53.0) % MCV 100.1 H (80.0-100.0) fL MCHC 30.4 L (31.0-37.0) g/dL RDW 16.8 H (11.5-15.5) % Plt Count 81 L (150-450) k/uL Chloride 97 L (98-107) mmol/L Carbon Dioxide 40 H 40 H (22-30) mmol/L BUN 49 H 49 H (9-20) mg/dL Creatinine 1.62 H 1.81 H (0.66-1.25) mg/dL Glucose 117 H 126 H (74-99) mg/dL 04/09/22 04/09/22 Range/Units 07:02 07:02 RBC 3.51 L (4.30-5.90) m/uL Hgb 10.6 L (13.0-17.5) gm/dL Hct 35.0 L (39.0-53.0) % MCV (80.0-100.0) fL MCHC 30.2 L (31.0-37.0) g/dL RDW 16.8 H (11.5-15.5) % Plt Count 88 L (150-450) k/uL Chloride (98-107) mmol/L Carbon Dioxide 39 H (22-30) mmol/L BUN 47 H (9-20) mg/dL Creatinine 1.78 H (0.66-1.25) mg/dL Glucose 106 H (74-99) mg/dL
[2022-04-09] MEDS: IPRATROPIUM-ALBUTEROL 3 ML NEB INHALATION PRN ×2 (11:25→20:07)
[2022-04-09] MEDS: METOPROLOL SUCCINATE (ER) 100 MG TAB.ER.24H PO SCH (12:46)
--- NOTE | 2022-04-09 13:25 | P.PN ---
Subjective Progress Note Date: 04/09/22 I was asked to evaluate this 71-year-old male patient because of hypoxic/hypercapnic respiratory failure. The patient is known to have coronary artery disease, known history of a severe ischemic myopathy with an ejection fraction of 20%, RV failure and the patient has a AICD in place and the patient also has a stage II diastolic heart failure. He has chronic into fibrillation, COPD, chronic hypoxic and hypercapnic respiratory failure is a former smoker. The patient remains in a hospital because of worsening shortness of breath. He also had increased lower extremity swelling. He had some limited cough and sputum production. During this course of his illness, the patient was given a blood gas initially indicating a pH of 7.32 with a pCO2 of 80 and pO2 of 95. Based on that, the patient was placed on BiPAP as the patient was getting short of breath and he was altered and he was having signs of CO2 narcosis. Currently is on a BiPAP at a pressures of 12/5 cm of water and FiO2 of 35%. The. Blood gases are essentially unchanged. Patient at 7.3 with a pO2 of 82 and there is some limited improvement in the oxygenation which is up to 118. He has developed significant metabolic alkalosis. Serum bicarb is up to 41 and his sodium is at 140. The bronchoscope 6.4 with a hemoglobin of 11.1. The viral screen has not been done. Co Pilot on the case. In terms of treatment, the patient is currently on IV Lasix 40 mg every 12 hours. He is in atrial fibrillation and the patient is on long-term and cognition without liquids 2.5 mg twice a day. He is taking Toprol-XL 100 mg by mouth daily. Remains on aspirin and he is on DuoNeb nebulized treatments to be taken only on an as-need ed basis. 04/08/2022, the patient is feeling well. No signs of any CO2 narcosis. The patient is being treated for CHF and acute on chronic hypoxic and hypercapnic respiratory failure. The patient is on Lasix for now. He is on 4 L of oxygen by nasal cannula with a pulse ox of 98%. Overall fluid balance over the past 24 hours is -2.9 L. The patient's serum bicarbs of 41 with a sodium level of 140 and a potassium level of 4.1. The w diuretics bc 6.4 with a hemoglobin of 11.1. The patient's diuretics and form of Lasix 40 mg IV every 8 hours. He is currently on oxygen at 4 L with a pulse ox of 90%.His feet a lot The patient is seen today 04/09/2022 in follow-up on the selective care unit. He is currently sitting up in bed. Maintained on BiPAP 12/5 and 35% FiO2. White count 4.3. Hemoglobin 10.6. White count 88,000. Sodium 142. Potassium 4.1. Bicarb 39. BUN 47. Creatinine 1.78. Glucose 106. He is continued on oral Lasix and Diamox. Anticoagulated with Eliquis. Remains on bronchodilators. Currently in a -3.3 L balance. Continues to diurese well. Objective - Vital Signs Vital signs: Vital Signs Temp 97.7 F 04/09/22 12:49 Pulse 71 04/09/22 12:49 Resp 16 04/09/22 12:49 BP 95/60 04/09/22 12:49 Pulse Ox 98 04/09/22 12:49 FiO2 35 04/09/22 11:26 Intake & Output 04/08/22 04/09/22 04/09/22 18:59 06:59 18:59 Intake Total 236 222 720 Output Total 2150 1700 525 Balance -1914 -1478 195 Weight 97.5 kg Intake: Oral 236 222 720 Output: Urine 2150 1700 525 Other: Voiding Method Indwelling Catheter Indwelling Catheter Indwelling Catheter - Exam GENERAL EXAM: Alert, very pleasant, 71-year-old currently on BiPAP 12/5 and 35% FiO2, breathing is nonlabored. HEAD: Normocephalic/atraumatic. EYES: Normal reaction of pupils, equal size. Conjunctiva pink, sclera white. NOSE: Clear with pink turbinates. THROAT: No erythema or exudates. NECK: No masses, no JVD, no thyroid enlargement, no adenopathy. CHEST: No chest wall deformity. Symmetrical expansion. LUNGS: Equal air entry with no crackles, wheeze, rhonchi or dullness. CVS: Regular rate and rhythm, normal S1 and S2, no gallops, no murmurs, no rubs ABDOMEN: Soft, nontender. No hepatosplenomegaly, normal bowel sounds, no guarding or rigidity. EXTREMITIES: No clubbing, no edema, no cyanosis, 2+ pulses and upper and lower extremities. MUSCULOSKELETAL: Muscle strength and tone normal. SPINE: No scoliosis or deformity SKIN: No rashes CENTRAL NERVOUS SYSTEM: Patient is confused and he is alert and oriented 1. No focal deficits, tone is normal in all 4 extremities. PSYCHIATRIC: Alert and oriented -1. Appropriate affect. Intact judgment and insight. - Labs CBC & Chem 7: 04/09/22 07:02 04/09/22 07:02 Labs: Abnormal Lab Results - Last 24 Hours (Table) 04/08/22 04/09/22 04/09/22 Range/Units 17:20 07:02 07:02 RBC 3.51 L (4.30-5.90) m/uL Hgb 10.6 L (13.0-17.5) gm/dL Hct 35.0 L (39.0-53.0) % MCHC 30.2 L (31.0-37.0) g/dL RDW 16.8 H (11.5-15.5) % Plt Count 88 L (150-450) k/uL Chloride 97 L (98-107) mmol/L Carbon Dioxide 40 H 39 H (22-30) mmol/L BUN 49 H 47 H (9-20) mg/dL Creatinine 1.81 H 1.78 H (0.66-1.25) mg/dL Glucose 126 H 106 H (74-99) mg/dL Assessment and Plan Assessment: Acute on chronic hypoxic/hypercapnic respiratory failure, essentially related to CHF. The patient has a chest x-ray that shows cardiomegaly and pulmonary edema and small bilateral pleural effusions. ProBNP level is elevated. Most recent echocardiogram that was done on 10/13/2021 showed severe global left ventricular hypokinesis with an ejection fraction of 20% and the patient also had a grade 3 diastolic dysfunction. Remains on a combination of Lasix and diamox. Overall fluid balance is -3.3 L. Right lower lobe atelectasis based on chest x-ray from 04/06/2022 chronic obstructive pulmonary disease, chronic, with a component of chronic h ypercapneic respiratory failure, compensated History of severe ischemic cardiomyopathy with ejection fraction less than 20% History of AICD placement Coronary artery disease with previous stent placement History of CVA with residual expressive aphasia and right-sided weakness Hypertension CKD, stage 3 Hyperlipidemia Chronic atrial fibrillation, anticoagulant with Eliquis History of gout Chronic and ongoing tobacco dependence History of daily alcohol use History of dysphagia secondary to the CVA with previous PEG tube insertion and subsequent removal Hearing disorder Plan: The patient was seen and evaluated Medications and labs reviewed Remains in a negative balance Continue diuretics, Diamox Titrate the FiO2 as tolerated Attempt to keep him off BiPAP throughout the day as tolerated We will continue to follow I have personally seen and examined the patient, performed the documentation and the assessment and plan as written. Number of minutes spent on the visit: 10.
--- NOTE | 2022-04-09 18:07 | P.PN ---
Subjective Progress Note Date: 04/09/22 (delayed charting seen at 1045) Patient is 71-year-old male with a 7 elevated, COPD, systolic congestive heart failure, COPD with chronic hypoxic respiratory failure, CVA with residual dysph agia status post PEG tube, hypertension, and hyperlipidemia who presented to the emergency room with bilateral lower extremity pain and swelling. In the emergency department he underwent extensive evaluation. His vital signs were within normal limits. Initial EKG showed a ventricular paced rhythm at 69 beats. Chest x-ray was consistent with fluid overload. Laboratory analysis was remarkable for troponin 0.046 with a creatinine of 1.51 (at baseline) and platelets of 104. Patient was admitted for acute exacerbation of CHF. He was started on daily IV Lasix. Cardiology was consulted. He initially was started on trazodone had some worsening of his renal function. He had worsening mentat ion and was found to be hypercapnic on 04/06. His Lasix was increased and he was started on BiPAP. Pulmonology was consulted due to persistent need for BiPAP. They recommended continued diuresis and Diamox. Patient continued to struggle with some confusion. Patient seen and examined at bedside. He reports he continues to have some shortness of breath and lower cavity swelling. He denies any chest pain or shortness of breath. He is confused and describes his house when asked what year it is. General: nontoxic, no distress, appears at stated age Derm: warm, dry, chronic venous stasis changes Head: atraumatic, normocephalic, symmetric Eyes: EOMI, no lid lag, anicteric sclera Mouth: no lip lesion, mucus membranes moist Cardiovascular: S1S2 reg, no murmur, positive posterior tibial pulse bilateral, Lungs: CTA bilateral, no rhonchi, no rales , no accessory muscle use Abdominal: soft, nontender to palpation, no guarding, no appreciable organomegaly Ext: no gross muscle atrophy, 2+ pitting edema, no contractures Neuro: CN II-XI grossly intact, no focal neuro deficits Psych: Alert, oriented to self, appropriate affect Assessment/plan: Acute on chronic hypoxic respiratory failure Hypercapnia Acute exacerbation of systolic congestive heart failure, EF 20% Ischemic cardiomyopathy status post AICD Persistent A. fib on eliquis -Cardiology recommendations: Again recommend contrast oh -On oral Lasix, metoprolol KERRIE on CKD IV - Baseline Cr 1.6 - will need to be careful with ACEI/ARB/Entreseto with CKD Acute exacerbation of COPD Elevated troponin reflective of chronic kidney disease and not acute coronary syndrome Acute metabolic encephalopathy versus dementia -Possible relation to CO2 narcosis -We'll recheck ABG in a.m. -Continue with Diamox -Supportive environment - check ammonia Severe dysphagia - modified barrium reveiwed from jan 2022, recommendded pleasure feeds only - NPO - Meds per PEG- D/W RN - Consult speech and dietitian - cosnult palliative care Chronic conditions: A. fib, hypertension, hyperlipidemia, CKD Anticipate discharge to residential facility. Active Medications Generic Name Dose Route Start Last Admin Trade Name Freq PRN Reason Stop Dose Admin Acetaminophen 650 mg 04/04/22 18:44 Acetaminophen Tab 325 Mg Tab PO Q6HR PRN Mild Pain or Fever > 100.5 Acetaminophen/Codeine Phosphate 1 each 04/05/22 03:49 Acetaminophen-Codeine 300-30mg Tab PO TID PRN Pain Acetazolamide 500 mg 04/07/22 12:30 04/09/22 08:11 Acetazolamide 250 Mg Tab PO 500 mg BID MO Administration Albuterol/Ipratropium 3 ml 04/07/22 12:19 04/09/22 11:25 Ipratropium-Albuterol 3 Ml Neb INHALATION 3 ml RT-QID PRN Administration Shortness Of Breath Or Wheezing Allopurinol 100 mg 04/05/22 09:00 04/09/22 08:12 Allopurinol 100 Mg Tab PO 100 mg BID MO Administration Apixaban 5 mg 04/05/22 21:00 04/09/22 08:12 Apixaban 5 Mg Tab PO 5 mg BID MO Administration Protocol Aspirin 81 mg 04/08/22 09:00 04/09/22 08:11 Aspirin 81 Mg PO 81 mg DAILY MO Administration Atorvastatin Calcium 80 mg 04/05/22 21:00 04/08/22 21:03 Atorvastatin 80 Mg Tab PO 80 mg HS MO Administration Furosemide 40 mg 04/08/22 16:00 04/09/22 17:10 Furosemide 40 Mg Tab PO 40 mg BID@0900,1600 MO Administration Gabapentin 400 mg 04/09/22 16:00 04/09/22 17:10 Gabapentin 400 Mg Cap PO 400 mg TID MO Administration Metoprolol Succinate 100 mg 04/06/22 13:00 04/09/22 12:46 Metoprolol Succinate (Er) 100 Mg Tab.Er.24h PO 100 mg 1300 MO Administration Naloxone HCl 0.2 mg 04/04/22 18:44 Naloxone 0.4 Mg/Ml 1 Ml Vial IV Q2M PRN Opioid Reversal Pantoprazole Sodium 40 mg 04/08/22 07:30 04/09/22 06:53 Pantoprazole 40 Mg Tablet PO 40 mg [id number] MO Administration Sertraline HCl 100 mg 04/05/22 09:00 04/09/22 08:12 Sertraline 100 Mg Tab PO 100 mg BID MO Administration Objective - Vital Signs Vital signs: Vital Signs Temp 98.0 F 04/09/22 16:00 Pulse 70 04/09/22 16:00 Resp 18 04/09/22 16:00 BP 104/62 04/09/22 16:00 Pulse Ox 95 04/09/22 16:00 FiO2 35 04/09/22 11:26 Intake & Output 04/08/22 04/09/22 04/09/22 18:59 06:59 18:59 Intake Total 236 222 838 Output Total 2150 1700 1275 Balance -1914 -1478 -437 Weight 97.5 kg 97.5 kg Intake: Oral 236 222 838 Output: Urine 2150 1700 1275 Other: Voiding Method Indwelling Catheter Indwelling Catheter Indwelling Catheter - Labs CBC & Chem 7: 04/09/22 07:02 04/09/22 07:02 Labs: Abnormal Lab Results - Last 24 Hours (Table) 04/08/22 04/09/22 04/09/22 Range/Units 17:20 07:02 07:02 RBC 3.51 L (4.30-5.90) m/uL Hgb 10.6 L (13.0-17.5) gm/dL Hct 35.0 L (39.0-53.0) % MCHC 30.2 L (31.0-37.0) g/dL RDW 16.8 H (11.5-15.5) % Plt Count 88 L (150-450) k/uL Chloride 97 L (98-107) mmol/L Carbon Dioxide 40 H 39 H (22-30) mmol/L BUN 49 H 47 H (9-20) mg/dL Creatinine 1.81 H 1.78 H (0.66-1.25) mg/dL Glucose 126 H 106 H (74-99) mg/dL
--- NOTE | 2022-04-09 19:36 | XR ---
EXAMINATION TYPE: XR chest 1V portable DATE OF EXAM: 04/09/2022 COMPARISON: 04/06/2022 HISTORY: Short of breath TECHNIQUE: FINDINGS: Heart is enlarged. There is pulmonary mild vascular congestion. There is blunting of the co stophrenic angles. There is left axillary pacemaker. IMPRESSION: Bilateral pleural effusions and larger on the right side. Cardiomegaly. There is likely s ome mild congestive heart failure. No significant change.
[2022-04-09] MEDS: ATORVASTATIN 80 MG TAB PO SCH (21:14)
[2022-04-10 05:13] LABS: ABG Base Excess 12.2 mmol/L; ABG HCO3 38 mmol/L (21-25); ABG Oxygen Saturation 97.4 % (94-97); ABG PCO2 66 mmHg (35-45); ABG PH 7.37 (7.35-7.45); ABG PO2 85 mmHg (83-108); ABG TCO2 40 mmol/L (19-24); Allen Test Performed? Yes
[2022-04-10] MEDS: PANTOPRAZOLE 40 MG TABLET PO SCH (06:44)
[2022-04-10] MEDS: IPRATROPIUM-ALBUTEROL 3 ML NEB INHALATION PRN ×3 (07:32→20:36)
[2022-04-10 08:14] LABS: Anisocytosis Slight; HCT 36.7 % (39.0-53.0); HGB 10.8 gm/dL (13.0-17.5); Hypochromasia Marked; MCH 29.8 pg (25.0-35.0); MCHC 29.3 g/dL (31.0-37.0); MCV 101.7 fL (80.0-100.0); Macrocytosis Moderate; Mean Platelet Volume 11.5; RBC 3.61 m/uL (4.30-5.90); RDW 16.6 % (11.5-15.5); WBC 4.2 k/uL (3.8-10.6)
[2022-04-10 08:17] LABS: Platelet Count 85 k/uL (150-450)
[2022-04-10 08:28] LABS: Calcium 8.6 mg/dL (8.4-10.2); Potassium 4.3 mmol/L (3.5-5.1)
[2022-04-10] MEDS: ASPIRIN 81 MG PO SCH (09:15)
[2022-04-10] MEDS: APIXABAN 5 MG TAB PO SCH ×2 (09:15→21:29)
[2022-04-10] MEDS: acetaZOLAMIDE 250 MG TAB PO SCH ×2 (09:15→21:29)
[2022-04-10] MEDS: allopurinoL 100 MG TAB PO SCH ×2 (09:15→21:30)
[2022-04-10] MEDS: FUROSEMIDE 40 MG TAB PO SCH ×2 (09:16→16:52)
[2022-04-10] MEDS: SERTRALINE 100 MG TAB PO SCH ×2 (09:16→21:29)
--- NOTE | 2022-04-10 11:09 | P.PN ---
Subjective Progress Note Date: 04/10/22 HISTORY OF PRESENT ILLNESS: The patient is 71-year-old male who follows in the office with Dr. Flores. He was admitted for acute heart failure exacerbation. He was given several doses of IV Lasix and then was started on Entresto, causing his creatinine to peak. His diuretics were held for 24 hours with improvement in his creatinine level, however were resumed by pulmonology the same day we resumed his Entresto. He was interviewed and examined lying comfortably in bed. He states he is feeling better since his admission but states he would have shortness of breath. He also reports some discomfort in his legs. 04/09/2022 Patient examined this morning at the bedside. Patient denies chest pain or pressure. He reports improvement in his shortness of breath. He remains on oral lasix 40mg BID. Creatinine today is 1.78. Telemetry reveals paced rhythm. 04/10/2022 Patient examined this morning at the bedside. He is wearing BiPap. He denies chest pain or pressure. Denies SOB. Chest x-ray reveals bilateral pleural effusions and large on the right side. Cardiac meds. There is some mild congestive heart failure. No significant change. Creatinine today 1.64. PHYSICAL EXAM: VITAL SIGNS: Reviewed. GENERAL: Well-developed in no acute distress. NECK: Supple. No JVD or thyromegaly LUNGS: Respirations even and unlabored. Lungs diminished with a few crackles bilaterally. HEART: Regular rate and rhythm. S1 and S2 heard. EXTREMITIES: Normal range of motion. No clubbing or cyanosis. Peripheral pulses intact. Trace lower extremity edema ASSESSMENT: Acute on chronic congestive heart failure with reduced EF, EF 20% Elevated troponin secondary to heart failure and kidney disease Persistent atrial fibrillation, on anticoagulation Ischemic cardiomyopathy, status post AICD Hypertension Acute kidney injury, worsened with IV diuresis PLAN: Continue current cardiac medications Daily weights, accurate I&O, and monitoring of kidney function Recommend Entresto. This may be performed on an outpatient basis as patient has continued KERRIE Further recommendations pending patient course Patient to follow up outpatient with Dr. Curiel Nurse practitioner note has been reviewed by physician. Signing provider agrees with the documented findings, assessment, and plan of care. Objective - Vital Signs Vital signs: Vital Signs Temp 97.4 F L 04/10/22 09:14 Pulse 71 04/10/22 09:14 Resp 17 04/10/22 09:14 BP 110/74 04/10/22 09:14 Pulse Ox 95 04/10/22 09:14 FiO2 35 04/10/22 00:24 Intake & Output 04/09/22 04/10/22 04/10/22 18:59 06:59 18:59 Intake Total 838 Output Total 1275 2225 Balance -437 -2225 Weight 97.5 kg Intake: Oral 838 Output: Urine 1275 2225 Other: Voiding Method Indwelling Catheter Indwelling Catheter Indwelling Catheter - Labs CBC & Chem 7: 04/10/22 07:42 04/10/22 07:42 Labs: Abnormal Lab Results - Last 24 Hours (Table) 04/10/22 04/10/22 04/10/22 Range/Units 05:09 07:42 07:42 RBC 3.61 L (4.30-5.90) m/uL Hgb 10.8 L (13.0-17.5) gm/dL Hct 36.7 L (39.0-53.0) % MCV 101.7 H (80.0-100.0) fL MCHC 29.3 L (31.0-37.0) g/dL RDW 16.6 H (11.5-15.5) % Plt Count 85 L (150-450) k/uL ABG pCO2 66 H (35-45) mmHg ABG HCO3 38 H (21-25) mmol/L ABG Total CO2 40 H (19-24) mmol/L ABG O2 Saturation 97.4 H (94-97) % Carbon Dioxide 41 H* (22-30) mmol/L BUN 44 H (9-20) mg/dL Creatinine 1.64 H (0.66-1.25) mg/dL
--- NOTE | 2022-04-10 13:17 | P.PN ---
Subjective Progress Note Date: 04/10/22 I was asked to evaluate this 71-year-old male patient because of hypoxic/hypercapnic respiratory failure. The patient is known to have coronary artery disease, known history of a severe ischemic myopathy with an ejection fraction of 20%, RV failure and the patient has a AICD in place and the patient also has a stage II diastolic heart failure. He has chronic into fibrillation, COPD, chronic hypoxic and hypercapnic respiratory failure is a former smoker. The patient remains in a hospital because of worsening shortness of breath. He also had increased lower extremity swelling. He had some limited cough and sputum production. During this course of his illness, the patient was given a blood gas initially indicating a pH of 7.32 with a pCO2 of 80 and pO2 of 95. Based on that, the patient was placed on BiPAP as the patient was getting short of breath and he was altered and he was having signs of CO2 narcosis. Currently is on a BiPAP at a pressures of 12/5 cm of water and FiO2 of 35%. The. Blood gases are essentially unchanged. Patient at 7.3 with a pO2 of 82 and there is some limited improvement in the oxygenation which is up to 118. He has developed significant metabolic alkalosis. Serum bicarb is up to 41 and his sodium is at 140. The bronchoscope 6.4 with a hemoglobin of 11.1. The viral screen has not been done. 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 In terms of treatment, the patient is currently on IV Lasix 40 mg every 12 hours. He is in atrial fibrillation and the patient is on long-term and cognition without liquids 2.5 mg twice a day. He is taking Toprol-XL 100 mg by mouth daily. Remains on aspirin and he is on DuoNeb nebulized treatments to be taken only on an as-need ed basis. 04/08/2022, the patient is feeling well. No signs of any CO2 narcosis. The patient is being treated for CHF and acute on chronic hypoxic and hypercapnic respiratory failure. The patient is on Lasix for now. He is on 4 L of oxygen by nasal cannula with a pulse ox of 98%. Overall fluid balance over the past 24 hours is -2.9 L. The patient's serum bicarbs of 41 with a sodium level of 140 and a potassium level of 4.1. The w diuretics bc 6.4 with a hemoglobin of 11.1. The patient's diuretics and form of Lasix 40 mg IV every 8 hours. He is currently on oxygen at 4 L with a pulse ox of 90%.His feet a lot The patient is seen today 04/09/2022 in follow-up on the selective care unit. He is currently sitting up in bed. Maintained on BiPAP 12/5 and 35% FiO2. White count 4.3. Hemoglobin 10.6. White count 88,000. Sodium 142. Potassium 4.1. Bicarb 39. BUN 47. Creatinine 1.78. Glucose 106. He is continued on oral Lasix and Diamox. Anticoagulated with Eliquis. Remains on bronchodilators. Currently in a -3.3 L balance. Continues to diurese well. The patient is seen today 04/10/2022 in follow-up on the selective care unit. He is currently sitting up in a chair at the bedside. Awake and alert in no acute distress. Maintaining O2 saturations in the 90s on 2 L/m per nasal cannula. Chest x-ray revealed bilateral pleural effusions right greater than left. Cardiomegaly. Some mild congestive heart failure. No significant change. He's been afebrile. Hemodynamically stable. He remains nothing by mouth. He continues to be nourished via tube feeding White count 4.2. Hemoglobin 10.8. Platelets 85,000. Arterial blood gases on 28% revealed a pO2 of 85, pCO2 66, pH 7.37. Sodium 144. Potassium 4.3. Bicarb 41. BUN 44. Creatinine 1.64. Glucose 84. He remains on diuretics, Diamox. Currently in a -2.6 L balance. Anticoagulated with Eliquis. Objective - Vital Signs Vital signs: Vital Signs Temp 97.4 F L 04/10/22 09:14 Pulse 71 04/10/22 09:14 Resp 17 04/10/22 09:14 BP 110/74 04/10/22 09:14 Pulse Ox 95 04/10/22 09:14 FiO2 35 04/10/22 00:24 Intake & Output 04/09/22 04/10/22 04/10/22 18:59 06:59 18:59 Intake Total 838 Output Total 1275 2225 Balance -437 -2225 Weight 97.5 kg 97.5 kg Intake: Oral 838 Output: Urine 1275 2225 Other: Voiding Method Indwelling Catheter Indwelling Catheter Indwelling Catheter - Exam GENERAL EXAM: Alert, very pleasant, 71-year-old currently on 2 L/m per nasal cannula, up in a chair at the bedside, breathing is nonlabored. HEAD: Normocephalic/atraumatic. EYES: Normal reaction of pupils, equal size. Conjunctiva pink, sclera white. NOSE: Clear with pink turbinates. THROAT: No erythema or exudates. NECK: No masses, no JVD, no thyroid enlargement, no adenopathy. CHEST: No chest wall deformity. Symmetrical expansion. LUNGS: Equal air entry with basilar crackles. CVS: Regular rate and rhythm, normal S1 and S2, no gallops, no murmurs, no rubs ABDOMEN: PEG tube exit site clean and dry. Soft, nontender. No hepatosplenomegaly, normal bowel sounds, no guarding or rigidity. EXTREMITIES: No clubbing, no edema, no cyanosis, 2+ pulses and upper and lower extremities. MUSCULOSKELETAL: Muscle strength and tone normal. SPINE: No scoliosis or deformity SKIN: No rashes CENTRAL NERVOUS SYSTEM: Patient is alert and oriented 1. No focal deficits, tone is normal in all 4 extremities. PSYCHIATRIC: Alert and oriented -1. Appropriate affect. Intact judgment and insight. - Labs CBC & Chem 7: 04/10/22 07:42 04/10/22 07:42 Labs: Abnormal Lab Results - Last 24 Hours (Table) 04/10/22 04/10/22 04/10/22 Range/Units 05:09 07:42 07:42 RBC 3.61 L (4.30-5.90) m/uL Hgb 10.8 L (13.0-17.5) gm/dL Hct 36.7 L (39.0-53.0) % MCV 101.7 H (80.0-100.0) fL MCHC 29.3 L (31.0-37.0) g/dL RDW 16.6 H (11.5-15.5) % Plt Count 85 L (150-450) k/uL ABG pCO2 66 H (35-45) mmHg ABG HCO3 38 H (21-25) mmol/L ABG Total CO2 40 H (19-24) mmol/L ABG O2 Saturation 97.4 H (94-97) % Carbon Dioxide 41 H* (22-30) mmol/L BUN 44 H (9-20) mg/dL Creatinine 1.64 H (0.66-1.25) mg/dL Assessment and Plan Assessment: Acute on chronic hypoxic/hypercapnic respiratory failure, essentially related to an acute exacerbation of systolic congestive heart failure. The patient has a chest x-ray that shows cardiomegaly and pulmonary edema and small bilateral pleural effusions. ProBNP level is elevated. Most recent echocardiogram that was done on 10/13/2021 showed severe global left ventricular hypokinesis with an ejection fraction of 20% and the patient also had a grade 3 diastolic dysfunction. Remains on a combination of Lasix and diamox. Overall fluid balance is - 2.6 L. 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, Hypertension CKD, stage 3 Hyperlipidemia Chronic atrial fibrillation, anticoagulant with Eliquis History of gout Chronic and ongoing tobacco dependence History of daily alcohol use History of dysphagia secondary to the CVA with previous PEG tube insertion Hearing disorder Plan: The patient was seen and evaluated Chest x-ray, medications and labs reviewed Remains in a negative balance Continue diuretics, Diamox Titrate the FiO2 as tolerated Remains nothing by mouth, tube feedings continued We will continue to follow I have personally seen and examined the patient, performed the documentation and the assessment and plan as written. Number of minutes spent on the visit: 10.
[2022-04-10] MEDS: METOPROLOL SUCCINATE (ER) 100 MG TAB.ER.24H PO SCH (14:03)
[2022-04-10] MEDS: GABAPENTIN 400 MG CAP PO SCH (14:31)
--- NOTE | 2022-04-10 17:19 | P.PN ---
Subjective Progress Note Date: 04/10/22 (delayed charting seen at 0845) Patient is 71-year-old male with a 7 elevated, COPD, systolic congestive heart failure, COPD with chronic hypoxic respiratory failure, CVA with residual dysph agia status post PEG tube, hypertension, and hyperlipidemia who presented to the emergency room with bilateral lower extremity pain and swelling. In the emergency department he underwent extensive evaluation. His vital signs were within normal limits. Initial EKG showed a ventricular paced rhythm at 69 beats. Chest x-ray was consistent with fluid overload. Laboratory analysis was remarkable for troponin 0.046 with a creatinine of 1.51 (at baseline) and platelets of 104. Patient was admitted for acute exacerbation of CHF. He was started on daily IV Lasix. Cardiology was consulted. He initially was started on trazodone had some worsening of his renal function. He had worsening mentat ion and was found to be hypercapnic on 04/06. His Lasix was increased and he was started on BiPAP. Pulmonology was consulted due to persistent need for BiPAP. They recommended continued diuresis and Diamox. Patient continued to struggle with some confusion. Patient seen and examined at bedside. Denies shortness of breath or lower extreme swelling. Frustrated because he is not eating and states he refuses to do tube feeds at home and eats whatever he wants. We discussed that it increases his risks of silent aspiration is likely adding to his respiratory distress and that he should be on tube feeds only. General: nontoxic, no distress, appears at stated age Derm: warm, dry, chronic venous stasis changes Head: atraumatic, normocephalic, symmetric Eyes: EOMI, no lid lag, anicteric sclera Mouth: no lip lesion, mucus membranes moist Cardiovascular: S1S2 reg, no murmur, positive posterior tibial pulse bilateral, Lungs: Coarse breath sounds bilateral, no rhonchi, no rales , no accessory muscle use, on BiPAP Abdominal: soft, nontender to palpation, no guarding, no appreciable organ omegaly Ext: no gross muscle atrophy, no edema, no contractures Neuro: CN II-XI grossly intact, no focal neuro deficits Psych: Alert, oriented to self and not being able to eat, appropriate affect Assessment/plan: Acute on chronic hypoxic respiratory failure Hypercapnia Acute exacerbation of systolic congestive heart failure, EF 20% Ischemic cardiomyopathy status post AICD Persistent A. fib on eliquis -Cardiology recommendations: d/w CALLIE long entresto can be started as outpatient. -On oral Lasix, metoprolol -Maintain Kel wrap KERRIE on CKD IV - Baseline Cr 1.6 - will need to be careful with ACEI/ARB/Entreseto with CKD Acute exacerbation of COPD Elevated troponin reflective of chronic kidney disease and not acute coronary syndrome Acute metabolic encephalopathy versus dementia -Possible relation to CO2 narcosis - wean bipap, AM abd improved -Continue with Diamox and lasix, consider entresto as outpatient -Supportive environment - check ammonia Severe dysphagia - modified barrium reviewed from jan 2022, recommended pleasure feeds only - NPO -Tube feedings reordered by dietitian -Discussed with speech who will reevaluate patient. Chronic conditions: A. fib, hypertension, hyperlipidemia, CKD Discussed with case management at length. Family does not want discharge to [facility] but [place] will increase home services. Active Medications Generic Name Dose Route Start Last Admin Trade Name Freq PRN Reason Stop Dose Admin Acetaminophen 650 mg 04/04/22 18:44 Acetaminophen Tab 325 Mg Tab PO Q6HR PRN Mild Pain or Fever > 100.5 Acetazolamide 500 mg 04/07/22 12:30 04/10/22 09:15 Acetazolamide 250 Mg Tab PO 500 mg BID MO Administration Albuterol/Ipratropium 3 ml 04/07/22 12:19 04/10/22 16:35 Ipratropium-Albuterol 3 Ml Neb INHALATION 3 ml RT-QID PRN Administration Shortness Of Breath Or Wheezing Allopurinol 100 mg 04/05/22 09:00 04/10/22 09:15 Allopurinol 100 Mg Tab PO 100 mg BID MO Administration Apixaban 5 mg 04/05/22 21:00 04/10/22 09:15 Apixaban 5 Mg Tab PO 5 mg BID MO Administration Protocol Aspirin 81 mg 04/08/22 09:00 04/10/22 09:15 Aspirin 81 Mg PO 81 mg DAILY MO Administration Atorvastatin Calcium 80 mg 04/05/22 21:00 04/09/22 21:14 Atorvastatin 80 Mg Tab PO 80 mg HS OM Administration Furosemide 40 mg 04/08/22 16:00 04/10/22 16:52 Furosemide 40 Mg Tab PO 40 mg BID@0900,1600 MO Administration Metoprolol Succinate 100 mg 04/06/22 13:00 04/10/22 14:03 Metoprolol Succinate (Er) 100 Mg Tab.Er.24h PO 100 mg 1300 MO Administration Naloxone HCl 0.2 mg 04/04/22 18:44 Naloxone 0.4 Mg/Ml 1 Ml Vial IV Q2M PRN Opioid Reversal Pantoprazole Sodium 40 mg 04/08/22 07:30 04/10/22 06:44 Pantoprazole 40 Mg Tablet PO 40 mg AC-BRKFST MO Administration Sertraline HCl 100 mg 04/05/22 09:00 04/10/22 09:16 Sertraline 100 Mg Tab PO 100 mg BID MO Administration Objective - Vital Signs Vital signs: Vital Signs Temp 98.0 F 04/10/22 16:00 Pulse 80 04/10/22 16:45 Resp 18 04/10/22 16:00 BP 115/70 04/10/22 16:00 Pulse Ox 97 04/10/22 16:00 FiO2 35 04/10/22 00:24 Intake & Output 04/09/22 04/10/22 04/10/22 18:59 06:59 18:59 Intake Total 838 Output Total 1275 2225 1450 Balance -437 -2225 -1450 Weight 97.5 kg 97.5 kg Intake: Oral 838 Output: Urine 1275 2225 1450 Other: Voiding Method Indwelling Catheter Indwelling Catheter Indwelling Catheter - Labs CBC & Chem 7: 04/10/22 07:42 04/10/22 07:42 Labs: Abnormal Lab Results - Last 24 Hours (Table) 04/10/22 04/10/22 04/10/22 Range/Units 05:09 07:42 07:42 RBC 3.61 L (4.30-5.90) m/uL Hgb 10.8 L (13.0-17.5) gm/dL Hct 36.7 L (39.0-53.0) % MCV 101.7 H (80.0-100.0) fL MCHC 29.3 L (31.0-37.0) g/dL RDW 16.6 H (11.5-15.5) % Plt Count 85 L (150-450) k/uL ABG pCO2 66 H (35-45) mmHg ABG HCO3 38 H (21-25) mmol/L ABG Total CO2 40 H (19-24) mmol/L ABG O2 Saturation 97.4 H (94-97) % Carbon Dioxide 41 H* (22-30) mmol/L BUN 44 H (9-20) mg/dL Creatinine 1.64 H (0.66-1.25) mg/dL
[2022-04-10] MEDS: ATORVASTATIN 80 MG TAB PO SCH (21:29)
[2022-04-11 00:55] LABS: Glucose,Whole Blood 145 mg/dL (70-110)
[2022-04-11] MEDS ORDERED: QUEtiapine 25 MG TAB PO STA (01:40)
[2022-04-11 06:16] LABS: Glucose,Whole Blood 141 mg/dL (70-110)
[2022-04-11] MEDS: INSULIN ASPART (NovoLOG) 100 UNIT/ML VIAL SQ SCH ×3 (06:59→20:51)
[2022-04-11] MEDS: PANTOPRAZOLE 40 MG TABLET PO SCH (06:59)
[2022-04-11] MEDS: IPRATROPIUM-ALBUTEROL 3 ML NEB INHALATION PRN ×2 (07:27→11:19)
[2022-04-11 08:04] LABS: Anisocytosis Slight; HCT 36.1 % (39.0-53.0); HGB 10.9 gm/dL (13.0-17.5); Hypochromasia Marked; MCH 29.5 pg (25.0-35.0); Macrocytosis Slight; Mean Platelet Volume 11.7; Poikilocytosis Slight; RBC 3.68 m/uL (4.30-5.90); RDW 17.2 % (11.5-15.5); WBC 4.6 k/uL (3.8-10.6)
[2022-04-11 08:06] LABS: Platelet Count 95 k/uL (150-450)
[2022-04-11 08:53] LABS: Magnesium 2.3 mg/dL (1.6-2.3)
[2022-04-11] MEDS: acetaZOLAMIDE 250 MG TAB PO SCH ×2 (08:53→21:03)
[2022-04-11] MEDS: APIXABAN 5 MG TAB PO SCH ×2 (08:53→21:04)
[2022-04-11] MEDS: SERTRALINE 100 MG TAB PO SCH ×2 (08:53→21:04)
[2022-04-11] MEDS: ASPIRIN 81 MG PO SCH (08:53)
[2022-04-11] MEDS: FUROSEMIDE 40 MG TAB PO SCH ×2 (08:53→17:23)
[2022-04-11] MEDS: allopurinoL 100 MG TAB PO SCH ×2 (08:53→21:04)
--- NOTE | 2022-04-11 11:04 | FL ---
Exam Date: 04/11/2022 10:46 AM. Modified barium swallow for dysphagia. Consistencies administered: Various consistency of barium. Fluoro time: 1 minute 9 seconds No images were sent to PACS. Please see speech pathology report. Deep penetration with premature spil l, no aspiration below the vocal cords.
--- NOTE | 2022-04-11 11:36 | P.PN ---
Subjective Progress Note Date: 04/11/22 Patient is 71-year-old male with a 7 elevated, COPD, systolic congestive heart failure, COPD with chronic hypoxic respiratory failure, CVA with residual dysphagia status post PEG tube, hypertension, and hyperlipidemia who presented to the emergency room with bilateral lower extremity pain and swelling. In the emergency department he underwent extensive evaluation. His vital signs were within normal limits. Initial EKG showed a ventricular paced rhythm at 69 beats. Chest x-ray was consistent with fluid overload. Laboratory analysis was remarkable for troponin 0.046 with a creatinine of 1.51 (at baseline) and platelets of 104. Patient was admitted for acute exacerbation of CHF. He was started on daily IV Lasix. Cardiology was consulted. He initially was started on trazodone had some worsening of his renal function. He had worsening mentation and was found to be hypercapnic on 04/06. His Lasix was increased and he was started on BiPAP. Pulmonology was consulted due to persistent need for BiPAP. They recommended continued diuresis and Diamox. Patient continued to st ruggle with some confusion. It came to light that patient was not using his peg tube at home and was eating. Tube feeds were restarted. He underwent modified barrium swallow on 04/11/22. Patient seen and examined at bedside. He is more confused today. He is awake but is not answering questions appropriately. General: nontoxic, no distress, appears at stated age Derm: warm, dry, chronic venous stasis changes Head: atraumatic, normocephalic, symmetric Eyes: EOMI, no lid lag, anicteric sclera Mouth: no lip lesion, mucus membranes moist Cardiovascular: S1S2 reg, no murmur, positive posterior tibial pulse bilateral, Lungs: Coarse breath sounds bilateral, no rhonchi, no rales , no accessory muscle use, on BiPAP Abdominal: soft, nontender to palpation, no guarding, no appreciable organomeg josue Ext: no gross muscle atrophy, no edema, no contractures Neuro: CN II-XI grossly intact, no focal neuro deficits Psych: lethargic, oriented to self, appropriate affect Assessment/plan: Acute on chronic hypoxic respiratory failure Hypercapnia Acute exacerbation of systolic congestive heart failure, EF 20% Ischemic cardiomyopathy status post AICD Persistent A. fib on eliquis -Cardiology recommendations: entresto can be started as outpatient. -On oral Lasix, metoprolol -zaina wrap or duran hose. KERRIE on CKD IV - Baseline Cr 1.6 - will need to be careful with ACEI/ARB/Entreseto with CKD Acute exacerbation of COPD Elevated troponin reflective of chronic kidney disease and not acute coronary syndrome Acute metabolic encephalopathy versus dementia-- worsening likely due to seroquel given 04/11/22- no additional seroquel -Possible relation to CO2 narcosis - check head CT -Continue with Diamox and lasix, consider entresto as outpatient -Supportive environment - ammonia is normal Severe dysphagia - Await modified barrium results completed 04/11/22 - NPO -Tube feedings reordered by dietitian Chronic conditions: A. fib, hypertension, hyperlipidemia, CKD Active Medications Generic Name Dose Route Start Last Admin Trade Name Freq PRN Reason Stop Dose Admin Acetaminophen 650 mg 04/04/22 18:44 Acetaminophen Tab 325 Mg Tab PO Q6HR PRN Mild Pain or Fever > 100.5 Acetazolamide 500 mg 04/07/22 12:30 04/11/22 08:53 Acetazolamide 250 Mg Tab PO 500 mg BID MO Administration Albuterol/Ipratropium 3 ml 04/07/22 12:19 04/11/22 11:19 Ipratropium-Albuterol 3 Ml Neb INHALATION 3 ml RT-QID PRN Administration Shortness Of Breath Or Wheezing Allopurinol 100 mg 04/05/22 09:00 04/11/22 08:53 Allopurinol 100 Mg Tab PO 100 mg BID MO Administration Apixaban 5 mg 04/05/22 21:00 04/11/22 08:53 Apixaban 5 Mg Tab PO 5 mg BID MO Administration Protocol Aspirin 81 mg 04/08/22 09:00 04/11/22 08:53 Aspirin 81 Mg PO 81 mg DAILY MO Administration Atorvastatin Calcium 80 mg 04/05/22 21:00 04/10/22 21:29 Atorvastatin 80 Mg Tab PO 80 mg HS MO Administration Furosemide 40 mg 04/08/22 16:00 04/11/22 08:53 Furosemide 40 Mg Tab PO 40 mg BID@0900,1600 MO Administration Insulin Aspart 0 unit 04/11/22 07:30 04/11/22 06:59 Insulin Aspart (Novolog) 100 Unit/Ml Vial SQ Not Given Q6H MO Protocol Melatonin 3 mg 04/11/22 21:00 Melatonin 3 Mg Tablet PO HS MO Metoprolol Succinate 100 mg 04/06/22 13:00 04/10/22 14:03 Metoprolol Succinate (Er) 100 Mg Tab.Er.24h PO 100 mg 1300 MO Administration Naloxone HCl 0.2 mg 04/04/22 18:44 Naloxone 0.4 Mg/Ml 1 Ml Vial IV Q2M PRN Opioid Reversal Pantoprazole Sodium 40 mg 04/08/22 07:30 04/11/22 06:59 Pantoprazole 40 Mg Tablet PO 40 mg AC-BRKFST MO Administration Sertraline HCl 100 mg 04/05/22 09:00 04/11/22 08:53 Sertraline 100 Mg Tab PO 100 mg BID MO Administration Objective - Vital Signs Vital signs: Vital Signs Temp 97.5 F L 04/11/22 08:00 Pulse 67 04/11/22 08:00 Resp 17 04/11/22 08:00 BP 114/64 04/11/22 08:00 Pulse Ox 95 04/11/22 08:00 FiO2 35 04/11/22 07:27 Intake & Output 04/10/22 04/11/22 04/11/22 18:59 06:59 18:59 Output Total 1450 1380 Balance -1450 -1380 Weight 97.5 kg 76.5 kg Output: Urine 1450 1380 Straight 1380 Other: Voiding Method Indwelling Catheter Indwelling Catheter Indwelling Catheter - Labs CBC & Chem 7: 04/11/22 07:37 04/11/22 07:37 Labs: Abnormal Lab Results - Last 24 Hours (Table) 04/11/22 04/11/22 04/11/22 Range/Units 00:53 06:15 07:37 RBC 3.68 L (4.30-5.90) m/uL Hgb 10.9 L (13.0-17.5) gm/dL Hct 36.1 L (39.0-53.0) % MCHC 30.0 L (31.0-37.0) g/dL RDW 17.2 H (11.5-15.5) % Plt Count 95 L (150-450) k/uL Carbon Dioxide (22-30) mmol/L BUN (9-20) mg/dL Creatinine (0.66-1.25) mg/dL Glucose (74-99) mg/dL POC Glucose (mg/dL) 145 H 141 H (70-110) mg/dL 04/11/22 Range/Units 07:37 RBC (4.30-5.90) m/uL Hgb (13.0-17.5) gm/dL Hct (39.0-53.0) % MCHC (31.0-37.0) g/dL RDW (11.5-15.5) % Plt Count (150-450) k/uL Carbon Dioxide 37 H (22-30) mmol/L BUN 43 H (9-20) mg/dL Creatinine 1.67 H (0.66-1.25) mg/dL Glucose 137 H (74-99) mg/dL POC Glucose (mg/dL) (70-110) mg/dL
[2022-04-11 11:57] LABS: Glucose,Whole Blood 120 mg/dL (70-110)
--- NOTE | 2022-04-11 12:16 | P.PN ---
Subjective Progress Note Date: 04/11/22 HISTORY OF PRESENT ILLNESS: The patient is 71-year-old male who follows in the office with Dr. Flores. He was admitted for acute heart failure exacerbation. He was given several doses of IV Lasix and then was started on Entresto, causing his creatinine to peak. His diuretics were held for 24 hours with improvement in his creatinine level, however were resumed by pulmonology the same day we resumed his Entresto. He was interviewed and examined lying comfortably in bed. He states he is feeling better since his admission but states he would have shortness of breath. He also reports some discomfort in his legs. 04/09/2022 Patient examined this morning at the bedside. Patient denies chest pain or pressure. He reports improvement in his shortness of breath. He remains on oral lasix 40mg BID. Creatinine today is 1.78. Telemetry reveals paced rhythm. 04/10/2022 Patient examined this morning at the bedside. He is wearing BiPap. He denies chest pain or pressure. Denies SOB. Chest x-ray reveals bilateral pleural effusions and large on the right side. Cardiac meds. There is some mild congestive heart failure. No significant change. Creatinine today 1.64. 04/11/2022 Patient examined this morning at the bedside. He denies chest pain or pressure. Denies SOB. He remains on oral lasix. Vital signs are stable. Creatinine 1.67. PHYSICAL EXAM: VITAL SIGNS: Reviewed. GENERAL: Well-developed in no acute distress. NECK: Supple. No JVD or thyromegaly LUNGS: Respirations even and unlabored. Lungs diminished. HEART: Regular rate and rhythm. S1 and S2 heard. EXTREMITIES: Normal range of motion. No clubbing or cyanosis. Peripheral pulses intact. Trace lower extremity edema ASSESSMENT: Acute on chronic congestive heart failure with reduced EF, EF 20% Elevated troponin secondary to heart failure and kidney disease Persistent atrial fibrillation, on anticoagulation Ischemic cardiomyopathy, status post AICD Hypertension Acute kidney injury, worsened with IV diuresis PLAN: Continue current cardiac medications Daily weights, accurate I&O, and monitoring of kidney function Recommend Entresto. This may be performed on an outpatient basis as patient has continued KERRIE Further recommendations pending patient course Patient to follow up outpatient with Dr. Curiel Nurse practitioner note has been reviewed by physician. Signing provider agrees with the documented findings, assessment, and plan of care. Objective - Vital Signs Vital signs: Vital Signs Temp 97.5 F L 04/11/22 08:00 Pulse 74 04/11/22 11:31 Resp 18 04/11/22 11:31 BP 114/64 04/11/22 08:00 Pulse Ox 95 04/11/22 08:00 FiO2 35 04/11/22 07:27 Intake & Output 04/10/22 04/11/22 04/11/22 18:59 06:59 18:59 Output Total 1450 1380 600 Balance -1450 -1380 -600 Weight 97.5 kg 76.5 kg Output: Urine 1450 1380 600 Straight 1380 Other: Voiding Method Indwelling Catheter Indwelling Catheter Indwelling Catheter - Labs CBC & Chem 7: 04/11/22 07:37 04/11/22 07:37 Labs: Abnormal Lab Results - Last 24 Hours (Table) 04/11/22 04/11/22 04/11/22 Range/Units 00:53 06:15 07:37 RBC 3.68 L (4.30-5.90) m/uL Hgb 10.9 L (13.0-17.5) gm/dL Hct 36.1 L (39.0-53.0) % MCHC 30.0 L (31.0-37.0) g/dL RDW 17.2 H (11.5-15.5) % Plt Count 95 L (150-450) k/uL Carbon Dioxide (22-30) mmol/L BUN (9-20) mg/dL Creatinine (0.66-1.25) mg/dL Glucose (74-99) mg/dL POC Glucose (mg/dL) 145 H 141 H (70-110) mg/dL 04/11/22 04/11/22 Range/Units 07:37 11:47 RBC (4.30-5.90) m/uL Hgb (13.0-17.5) gm/dL Hct (39.0-53.0) % MCHC (31.0-37.0) g/dL RDW (11.5-15.5) % Plt Count (150-450) k/uL Carbon Dioxide 37 H (22-30) mmol/L BUN 43 H (9-20) mg/dL Creatinine 1.67 H (0.66-1.25) mg/dL Glucose 137 H (74-99) mg/dL POC Glucose (mg/dL) 120 H (70-110) mg/dL
--- NOTE | 2022-04-11 12:25 | CT ---
EXAMINATION TYPE: CT brain wo con DATE OF EXAM: 04/11/2022 COMPARISON: 01/09/2022 INDICATION: AMS, CONFUSION DLP: 1115.4 mGycm, Automated exposure control for dose reduction was used. CONTRAST: None CT of the brain is performed utilizing 3 mm thick sections through the posterior fossa and 3 mm thick sections through the remaining calvarium. Study is performed within 24 hours of arrival to the hosp [facility]. No abnormal hyperdensity is present to suggest an acute intracranial hemorrhage. No mass lesion is evident. No acute infarcts are evident. There is an old left parietal lobe infarct. Extensive white matter james nges are present greater on the left. Some periventricular white matter changes are present adjacent to the right lateral ventricle. No midline shift is evident. Findings appear stable from prior exam Ventricles and sulci are prominent for the patient age. Paranasal sinuses and mastoid air cells within the [id number] are clear. IMPRESSIONS: 1. Old left parietal lobe infarct. 2. Old sean-infarct ischemic change and/or chronic white matter ischemic changes in the periventricul ar regions.
[2022-04-11] MEDS: METOPROLOL SUCCINATE (ER) 100 MG TAB.ER.24H PO SCH (12:30)
--- NOTE | 2022-04-11 15:07 | P.PN ---
Subjective Progress Note Date: 04/11/22 Principal diagnosis: non-STEMI, CHF exacerbation I was asked to evaluate this 71-year-old male patient because of hypoxic/hypercapnic respiratory failure. The patient is known to have coronary artery disease, known history of a severe ischemic myopathy with an ejection fraction of 20%, RV failure and the patient has a AICD in place and the patient also has a stage II diastolic heart failure. He has chronic into fibrillation, COPD, chronic hypoxic and hypercapnic respiratory failure is a former smoker. The patient remains in a hospital because of worsening shortness of breath. He also had increased lower extremity swelling. He had some limited cough and sputum production. During this course of his illness, the patient was given a blood gas initially indicating a pH of 7.32 with a pCO2 of 80 and pO2 of 95. Based on that, the patient was placed on BiPAP as the patient was getting short of breath and he was altered and he was having signs of CO2 narcosis. Currently is on a BiPAP at a pressures of 12/5 cm of water and FiO2 of 35%. The. Blood gases are essentially unchanged. Patient at 7.3 with a pO2 of 82 and there is some limited improvement in the oxygenation which is up to 118. He has developed significant metabolic alkalosis. Serum bicarb is up to 41 and his sodium is at 140. The bronchoscope 6.4 with a hemoglobin of 11.1. The viral screen has not been done. [employer] Eng[employer]ver on the case. In terms of treatment, the patient is currently on IV Lasix 40 mg every 12 hours. He is in atrial fibrillation and the patient is on long-term and cognition without liquids 2.5 mg twice a day. He is taking Toprol-XL 100 mg by mouth daily. Remains on asp irin and he is on DuoNeb nebulized treatments to be taken only on an as-needed basis. 04/08/2022, the patient is feeling well. No signs of any CO2 narcosis. The patient is being treated for CHF and acute on chronic hypoxic and hypercapnic respiratory failure. The patient is on Lasix for now. He is on 4 L of oxygen by nasal cannula with a pulse ox of 98%. Overall fluid balance over the past 24 hours is -2.9 L. The patient's serum bicarbs of 41 with a sodium level of 140 and a potassium level of 4.1. The w diuretics bc 6.4 with a hemoglobin of 11.1. The patient's diuretics and form of Lasix 40 mg IV every 8 hours. He is currently on oxygen at 4 L with a pulse ox of 90%.His feet a lot The patient is seen today 04/09/2022 in follow-up on the selective care unit. He is currently sitting up in bed. Maintained on BiPAP 12/5 and 35% FiO2. White count 4.3. Hemoglobin 10.6. White count 88,000. Sodium 142. Potassium 4.1. Bicarb 39. BUN 47. Creatinine 1.78. Glucose 106. He is continued on oral Lasix and Diamox. Anticoagulated with Eliquis. Remains on bronchodilators. Currently in a -3.3 L balance. Continues to diurese well. The patient is seen today 04/10/2022 in follow-up on the selective care unit. He is currently sitting up in a chair at the bedside. Awake and alert in no acute distress. Maintaining O2 saturations in the 90s on 2 L/m per nasal cannula. Chest x-ray revealed bilateral pleural effusions right greater than left. Cardiomegaly. Some mild congestive heart failure. No significant change. He's been afebrile. Hemodynamically stable. He remains nothing by mouth. He continues to be nourished via tube feeding White count 4.2. Hemoglobin 10.8. Platelets 85,000. Arterial blood gases on 28% revealed a pO2 of 85, pCO2 66, pH 7.37. Sodium 144. Potassium 4.3. Bicarb 41. BUN 44. Creatinine 1.64. Glucose 84. He remains on diuretics, Diamox. Currently in a -2.6 L balance. Anticoagulated with Eliquis.negative I'm evaluating this patient today on 04/11/2022 in follow-up on the selective care unit. The patient is sitting up in the recliner,on 2 L nasal cannula, in no acute distress. patient continues to receive Jevity nutrition at 50 mL per hour through his PEG tube due to ongoing aspiration issues. the patient has been adamant that he wants to eat, despite this aspiration risk, so a repeat swallowing evaluation was performed by speech therapy. The evaluation showed poor laryngeal closure and likely silent aspiration. The recommendation was to continue nothing by mouth status, and to continue to receive nutrition through his PEG tube. no new chest x-ray to review today. CBC shows that she can 4.6, hemoglobin 10.9, hematocrit 36.1, platelets 95,000. BMP from today shows sodium 143, potassium 4, chloride 103, serum CO2 37, BUN 43, creatinine 1.67, glucose 137. patient continues to receive DuoNeb inhalation, Eliquis for anticoagulation, Lasix twice a day, Diamox, and Protonix for GI prophylaxis. the patient's fluid balance is -2.8 L over the last 24 hours. vital signs remain stable. Patient is afebrile. Objective - Vital Signs Vital signs: Vital Signs Temp 97.6 F 04/11/22 12:00 Pulse 67 04/11/22 12:00 Resp 16 04/11/22 12:00 BP 106/70 04/11/22 12:00 Pulse Ox 95 04/11/22 12:00 FiO2 35 04/11/22 07:27 Intake & Output 04/10/22 04/11/22 04/11/22 18:59 06:59 18:59 Output Total 1450 1380 600 Balance -1450 -1380 -600 Weight 97.5 kg 76.5 kg Output: Urine 1450 1380 600 Straight 1380 Other: Voiding Method Indwelling Catheter Indwelling Catheter Indwelling Catheter - Exam GENERAL EXAM: Alert, 71-year-old male, up in a chair at the bedside. HEAD: Normocephalic/atraumatic. EYES: Normal reaction of pupils, equal size. Conjunctiva pink, sclera white. NOSE: Clear with pink turbinates. THROAT: No erythema or exudates.continue NECK: No masses, no JVD, no thyroid enlargement, no adenopathy. CHEST: No chest wall deformity. Symmetrical expansion. LUNGS: Equal air entry with scattered inspiratory bibasilar crackles. currently on 2 L/m per nasal cannula. no conversational dyspnea or accessory muscle use. CVS: Regular rate and rhythm, normal S1 and S2, no gallops, no murmurs, no rubs ABDOMEN: PEG tube exit site clean and dry. Jevity tube feedings infusing. Abdomen is soft, nontender. No hepatosplenomegaly, normal bowel sounds, no guarding or rigidity. EXTREMITIES: No clubbing, mild nonpitting bilateral lower extremity edema, no cyanosis, 2+ pulses and upper and lower extremities. MUSCULOSKELETAL: Muscle strength and tone normal. SPINE: No scoliosis or deformity SKIN: No rashes CENTRAL NERVOUS SYSTEM: Patient is alert and oriented 1. No focal deficits, tone is normal in all 4 extremities. PSYCHIATRIC: Appropriate affect. - Labs CBC & Chem 7: 04/11/22 07:37 04/11/22 07:37 Labs: Abnormal Lab Results - Last 24 Hours (Table) 04/11/22 04/11/22 04/11/22 Range/Units 00:53 06:15 07:37 RBC 3.68 L (4.30-5.90) m/uL Hgb 10.9 L (13.0-17.5) gm/dL Hct 36.1 L (39.0-53.0) % MCHC 30.0 L (31.0-37.0) g/dL RDW 17.2 H (11.5-15.5) % Plt Count 95 L (150-450) k/uL Carbon Dioxide (22-30) mmol/L BUN (9-20) mg/dL Creatinine (0.66-1.25) mg/dL Glucose (74-99) mg/dL POC Glucose (mg/dL) 145 H 141 H (70-110) mg/dL 04/11/22 04/11/22 Range/Units 07:37 11:47 RBC (4.30-5.90) m/uL Hgb (13.0-17.5) gm/dL Hct (39.0-53.0) % MCHC (31.0-37.0) g/dL RDW (11.5-15.5) % Plt Count (150-450) k/uL Carbon Dioxide 37 H (22-30) mmol/L BUN 43 H (9-20) mg/dL Creatinine 1.67 H (0.66-1.25) mg/dL Glucose 137 H (74-99) mg/dL POC Glucose (mg/dL) 120 H (70-110) mg/dL Assessment and Plan Assessment: Acute on chronic hypoxic/hypercapnic respiratory failure, essentially related to an acute exacerbation of systolic congestive heart failure. The patient has a chest x-ray that shows cardiomegaly and pulmonary edema and small bilateral pleural effusions. ProBNP level is elevated. Most recent echocardiogram that was done on 10/13/2021 showed severe global left ventricular hypokinesis with an ejection fraction of 20% and the patient also had a grade 3 diastolic dysfunction. Remains on a combination of Lasix and diamox. fluid balance is - 2.8 L in the last 24 hours. 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 Remains nothing by mouth, tube feedings continued from a pulmonary standpoint, the patient is cleared for discharge. We will follow as needed. I have personally seen and examined the patient, performed the documentation and the assessment and plan as written. Number of minutes spent on the visit: 10 Time with Patient: Less than 30
[2022-04-11 16:50] LABS: Glucose,Whole Blood 128 mg/dL (70-110)
[2022-04-11 20:00] LABS: Glucose,Whole Blood 129 mg/dL (70-110)
[2022-04-11] MEDS: ATORVASTATIN 80 MG TAB PO SCH (21:04)
[2022-04-11] MEDS: MELATONIN 3 MG TABLET PO SCH (21:04)
[2022-04-12 02:06] LABS: Glucose,Whole Blood 124 mg/dL (70-110)
[2022-04-12] MEDS: INSULIN ASPART (NovoLOG) 100 UNIT/ML VIAL SQ SCH ×4 (03:23→20:04)
[2022-04-12] MEDS: IPRATROPIUM-ALBUTEROL 3 ML NEB INHALATION PRN ×2 (07:39→21:11)
[2022-04-12] MEDS: FUROSEMIDE 40 MG TAB PO SCH ×2 (09:16→17:31)
[2022-04-12] MEDS: acetaZOLAMIDE 250 MG TAB PO SCH ×2 (09:16→20:04)
[2022-04-12] MEDS: ASPIRIN 81 MG PO SCH (09:16)
[2022-04-12] MEDS: allopurinoL 100 MG TAB PO SCH ×2 (09:16→20:04)
[2022-04-12] MEDS: PANTOPRAZOLE 40 MG TABLET PO SCH (09:16)
[2022-04-12] MEDS: SERTRALINE 100 MG TAB PO SCH (09:16)
[2022-04-12] MEDS: APIXABAN 5 MG TAB PO SCH ×2 (09:17→20:04)
[2022-04-12 09:26] LABS: Anisocytosis Slight; HCT 37.7 % (39.0-53.0); Hypochromasia Marked; MCH 29.2 pg (25.0-35.0); MCHC 29.3 g/dL (31.0-37.0); MCV 99.8 fL (80.0-100.0); Macrocytosis Slight; Mean Platelet Volume 10.3; RBC 3.78 m/uL (4.30-5.90); RDW 16.8 % (11.5-15.5); WBC 4.6 k/uL (3.8-10.6)
[2022-04-12 09:28] LABS: Platelet Count 93 k/uL (150-450)
[2022-04-12 09:51] LABS: Albumin 3.1 g/dL (3.5-5.0); Calcium 8.9 mg/dL (8.4-10.2); Magnesium 2.3 mg/dL (1.6-2.3); Potassium 3.9 mmol/L (3.5-5.1); Total Bilirubin 0.9 mg/dL (0.2-1.3)
--- NOTE | 2022-04-12 10:44 | P.PN ---
Subjective Progress Note Date: 04/12/22 Patient is 71-year-old male with a 7 elevated, COPD, systolic congestive heart failure, COPD with chronic hypoxic respiratory failure, CVA with residual dysphagia status post PEG tube, hypertension, and hyperlipidemia who presented to the emergency room with bilateral lower extremity pain and swelling. In the emergency department he underwent extensive evaluation. His vital signs were within normal limits. Initial EKG showed a ventricular paced rhythm at 69 beats. Chest x-ray was consistent with fluid overload. Laboratory analysis was remarkable for troponin 0.046 with a creatinine of 1.51 (at baseline) and platelets of 104. Patient was admitted for acute exacerbation of CHF. He was started on daily IV Lasix. Cardiology was consulted. He initially was started on trazodone had some worsening of his renal function. He had worsening mentation and was found to be hypercapnic on 04/06. His Lasix was increased and he was started on BiPAP. Pulmonology was consulted due to persistent need for BiPAP. They recommended continued diuresis and Diamox. Patient continued to st ruggle with some confusion. It came to light that patient was not using his peg tube at home and was eating. Tube feeds were restarted. He underwent modified barrium swallow on 04/11/22 which again shows he is not safe to eat. He had continued confusion and Head CT demonstrated old CVA. Neurology was consulted. Patient seen and examined at bedside. He is again confused today. He is more awake then yesterday but still confused. He does not answer questions appropriately. General: nontoxic, no distress, appears at stated age Derm: warm, dry, chronic venous stasis changes Head: atraumatic, normocephalic, symmetric Eyes: EOMI, no lid lag, anicteric sclera Mouth: no lip lesion, mucus membranes moist Cardiovascular: S1S2 reg, no murmur, positive posterior tibial pulse bilateral, Lungs: Coarse breath sounds bilateral, no rhonchi, no rales , no accessory muscle use, on BiPAP Abdominal: soft, nontender to palpation, no guarding, no appreciable organomegaly Ext: no gross muscle atrophy, no edema, no contractures Neuro: CN II-XI grossly intact, no focal neuro deficits Psych: lethargic, oriented to self, appropriate affect Assessment/plan: Acute on chronic hypoxic respiratory failure Hypercapnia Acute exacerbation of systolic congestive heart failure, EF 20% Ischemic cardiomyopathy status post AICD Persistent A. fib on eliquis -Cardiology recommendations: entresto can be started as outpatient. -On oral Lasix, metoprolol Acute metabolic encephalopathy versus dementia - Initially the though was worsening likely due to seroquel given 04/11/22, but confusion continues - hold zoloft - CT head- consistent with prior infarct -consult neurology - hold zoloft. 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 fib, hypertension, hyperlipidemia, CKD Active Medications Generic Name Dose Route Start Last Admin Trade Name Freq PRN Reason Stop Dose Admin Acetaminophen 650 mg 04/04/22 18:44 Acetaminophen Tab 325 Mg Tab PO Q6HR PRN Mild Pain or Fever > 100.5 Acetazolamide 500 mg 04/07/22 12:30 04/12/22 09:16 Acetazolamide 250 Mg Tab PO 500 mg BID MO Administration Albuterol/Ipratropium 3 ml 04/07/22 12:19 04/12/22 07:39 Ipratropium-Albuterol 3 Ml Neb INHALATION 3 ml RT-QID PRN Administration Shortness Of Breath Or Wheezing Allopurinol 100 mg 04/05/22 09:00 04/12/22 09:16 Allopurinol 100 Mg Tab PO 100 mg BID MO Administration Apixaban 5 mg 04/05/22 21:00 04/12/22 09:17 Apixaban 5 Mg Tab PO Not Given BID MO Protocol Aspirin 81 mg 04/08/22 09:00 04/12/22 09:16 Aspirin 81 Mg PO 81 mg DAILY MO Administration Atorvastatin Calcium 80 mg 04/05/22 21:00 04/11/22 21:04 Atorvastatin 80 Mg Tab PO 80 mg HS MO Administration Furosemide 40 mg 04/08/22 16:00 04/12/22 09:16 Furosemide 40 Mg Tab PO 40 mg BID@0900,1600 MO Administration Insulin Aspart 0 unit 04/11/22 07:30 04/12/22 08:57 Insulin Aspart (Novolog) 100 Unit/Ml Vial SQ Not Given Q6H MO Protocol Melatonin 3 mg 04/11/22 21:00 04/11/22 21:04 Melatonin 3 Mg Tablet PO 3 mg HS MO Administration Metoprolol Succinate 100 mg 04/06/22 13:00 04/11/22 12:30 Metoprolol Succinate (Er) 100 Mg Tab.Er.24h PO 100 mg 1300 MO Administration Naloxone HCl 0.2 mg 04/04/22 18:44 Naloxone 0.4 Mg/Ml 1 Ml Vial IV Q2M PRN Opioid Reversal Pantoprazole Sodium 40 mg 04/08/22 07:30 04/12/22 09:16 Pantoprazole 40 Mg Tablet PO 40 mg [id number] MO Administration Objective - Vital Signs Vital signs: Vital Signs Temp 97.9 F 04/12/22 08:00 Pulse 68 04/12/22 08:00 Resp 16 04/12/22 08:00 BP 137/70 04/12/22 08:00 Pulse Ox 90 L 04/12/22 08:00 FiO2 35 04/12/22 03:36 Intake & Output 04/11/22 04/12/22 04/12/22 18:59 06:59 18:59 Output Total 600 500 Balance -600 -500 Output: Urine 600 500 Other: Voiding Method Indwelling Catheter Indwelling Catheter - Labs CBC & Chem 7: 04/12/22 09:10 04/12/22 09:10 Labs: Abnormal Lab Results - Last 24 Hours (Table) 04/11/22 04/11/22 04/11/22 Range/Units 11:47 16:47 19:59 RBC (4.30-5.90) m/uL Hgb (13.0-17.5) gm/dL Hct (39.0-53.0) % MCHC (31.0-37.0) g/dL RDW (11.5-15.5) % Plt Count (150-450) k/uL Carbon Dioxide (22-30) mmol/L BUN (9-20) mg/dL Creatinine (0.66-1.25) mg/dL POC Glucose (mg/dL) 120 H 128 H 129 H (70-110) mg/dL Total Protein (6.3-8.2) g/dL Albumin (3.5-5.0) g/dL 04/12/22 04/12/22 04/12/22 Range/Units 02:05 09:10 09:10 RBC 3.78 L (4.30-5.90) m/uL Hgb 11.0 L (13.0-17.5) gm/dL Hct 37.7 L (39.0-53.0) % MCHC 29.3 L (31.0-37.0) g/dL RDW 16.8 H (11.5-15.5) % Plt Count 93 L (150-450) k/uL Carbon Dioxide 37 H (22-30) mmol/L BUN 40 H (9-20) mg/dL Creatinine 1.63 H (0.66-1.25) mg/dL POC Glucose (mg/dL) 124 H (70-110) mg/dL Total Protein 6.0 L (6.3-8.2) g/dL Albumin 3.1 L (3.5-5.0) g/dL
[2022-04-12 12:04] LABS: Glucose,Whole Blood 97 mg/dL (70-110)
--- NOTE | 2022-04-12 12:31 | P.GSCN ---
History of Present Illness Consult date: 04/12/22 History of present illness: CHIEF COMPLAINT: Shortness of breath HISTORY OF PRESENT ILLNESS: This is a 71-year-old male who presented with worsening shortness of breath and had evidence of CHF exacerbation. He does have a known history of CVA with dysphagia and had PEG tube placed on 08/30/[address] Neff for dysphagia and aspiration pneumonia. Apparently patient's tubing for the PEG tube is been held together with Duck tape. Surgical service consulted for PEG tube replacement. Tube feedings are currently on hold. Last dose of Eliquis was last night. PAST MEDICAL HISTORY: See below PAST SURGICAL HISTORY: See below MEDICATIONS: See below ALLERGIES: See below SOCIAL HISTORY: No illicit drug use. REVIEW OF SYSTEMS: CONSTITUTIONAL: Denies fever or chills. HEENT: Denies blurred vision, vision changes, or eye pain. Denies hemoptysis CARDIOVASCULAR: Denies chest pain or pressure. RESPIRATORY: No shortness of breath. GASTROINTESTINAL: See HPI for pertinent findings HEMATOLOGIC: Denies bleeding disorders. GENITOURINARY: Denies any blood in urine or increased urinary frequency. SKIN: Denies pruitis. Denies rash. PHYSICAL EXAM: VITAL SIGNS: Reviewed GENERAL: Well-developed in no acute distress. HEENT: No sclera icterus. Extraocular movements grossly intact. Moist buccal mucosa. Head is atraumatic, normocephalic. No nasal drainage. ABDOMEN: Soft. Nondistended. Nontender. Active site is clean dry and intact. Tubing noted to be held together with take NEUROLOGIC: Awake and alert. Confused. LABORATORY DATA: WBC is 4.6 HGB 11 platelets 93 Sodium is 144 potassium 3.9 creatinine 1.63 Albumin 3.1 IMAGING: ASSESSMENT: 1. History of CVA and dysphagia 2. Aspiration and failed swallow eval 3. Moderate protein calorie malnutrition PLAN: -Patient scheduled for replacement of PEG tube today with Dr. Alvarez -Continue to hold Eliquis -Continue to hold tube feedings Thank you for this consultation Physician Kettle Worker note has been reviewed by physician. Signing provider agrees with the documented findings, assessment, and plan of care. I have personally seen and examined the patient, reviewed the REPA[employer]ER [employer] /PAs history, exam and MDM and agree with the assessment and plan as written. Based on total visit time, I have performed more than 50% of the visit. As above: Patient with malfunctioning PEG tube. We'll proceed with replacement at this time. 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 sided weakness,cataracts, bruises easily due to coumadin,does not wear cpap,neuropathy moe. feet History of Any Multi-Drug Resistant Organisms: None Reported Past Surgical History: AICD, Heart Catheterization With Stent Additional Past Surgical History / Comment(s): AICD/Pacemaker, PEG tube placed in [address] Anglin in 2019 Past Anesthesia/Blood Transfusion Reactions: No Reported Reaction Date of Last Stent Placement:: unk Type of Cardiac Device: AICD Device Placement Date:: 2009 Past Psychological History: Anxiety, Depression, PTSD Additional Psychological History / Comment(s): PTSD 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 war Smoking Status: Current every day smoker Past Alcohol Use History: None Reported Additional Past Alcohol Use History / Comment(s): states he stopped smoking a pack per day two days ago Past Drug Use History: None Reported - Past Family History Brother(s) Family Medical History: Deep Vein Thrombosis (DVT) Medications and Allergies Home Medications Medication Instructions Recorded Confirmed Type Aspirin [Adult Low Dose Aspirin EC] 81 mg PO DAILY 09/02/17 04/04/22 History Omeprazole [PriLOSEC] 20 mg PO BID 09/02/17 04/04/22 History Sertraline HCl [Zoloft] 100 mg PO BID 09/02/17 04/04/22 History allopurinoL [Zyloprim] 100 mg PO BID 09/02/17 04/04/22 History Acetaminophen-Codeine 300-30mg 1 tab PO TID PRN 04/01/19 04/04/22 History [Tylenol w/codeine #3] Rosuvastatin Calcium [Crestor] 20 mg PO HS 08/20/19 04/04/22 History Albuterol Sulfate [Albuterol 2 puff INHALATION RT-QID PRN 12/27/20 04/04/22 History Sulfate Hfa] Apixaban [Eliquis] 5 mg PO BID 12/27/20 04/04/22 History Jevity 1.5 Jakob Liquid 3 can PO DAILY 12/27/20 04/04/22 History Metoprolol Succinate (ER) [Toprol 100 mg PO DAILY 12/27/20 04/04/22 History XL] Ipratropium-Albuterol Nebulize 3 ml INHALATION RT-QID PRN 02/08/21 04/04/22 History [Duoneb 0.5 mg-3 mg/3 ml Soln] Mag-Ox 420mg 420 mg PO BID 02/08/21 04/04/22 History Gabapentin [Neurontin] 800 mg PO TID 12/28/21 04/04/22 History Furosemide [Lasix] 80 mg PO DAILY 02/15/22 04/04/22 History Allergies Allergy/AdvReac Type Severity Reaction Status Date / Time metolazone [From Zaroxolyn] Allergy Rash/Hives Verified 04/04/22 19:09 warfarin [From Coumadin] Allergy Unknown - Verified 04/04/22 19:09 Per [facility] list fluticasone AdvReac Dyspnea Verified 04/04/22 19:09 [From Wixela Inhub] fluvastatin AdvReac weakness/muscle Verified 04/04/22 19:09 pain rosuvastatin [From Crestor] AdvReac muscle pain Verified 04/04/22 19:09 salmeterol AdvReac Dyspnea Verified 04/04/22 19:09 [From Wixela Inhub] simvastatin AdvReac muscle pain Verified 04/04/22 19:09 sulfamethoxazole AdvReac Abdominal Verified 04/04/22 19:09 [From Bactrim] Pain trimethoprim [From Bactrim] AdvReac Abdominal Verified 04/04/22 19:09 Pain Surgical - Exam Vital Signs Temp Pulse Resp BP Pulse Ox 97.8 F 71 20 99/69 94 L 04/04/22 14:37 04/04/22 14:37 04/04/22 14:37 04/04/22 14:37 04/04/22 14:37 Results - Labs 04/12/22 09:10 04/12/22 09:10 Abnormal Lab Results - Last 24 Hours (Table) 04/11/22 04/11/22 04/12/22 Range/Units 16:47 19:59 02:05 RBC (4.30-5.90) m/uL Hgb (13.0-17.5) gm/dL Hct (39.0-53.0) % MCHC (31.0-37.0) g/dL RDW (11.5-15.5) % Plt Count (150-450) k/uL Carbon Dioxide (22-30) mmol/L BUN (9-20) mg/dL Creatinine (0.66-1.25) mg/dL POC Glucose (mg/dL) 128 H 129 H 124 H (70-110) mg/dL Total Protein (6.3-8.2) g/dL Albumin (3.5-5.0) g/dL 04/12/22 04/12/22 Range/Units 09:10 09:10 RBC 3.78 L (4.30-5.90) m/uL Hgb 11.0 L (13.0-17.5) gm/dL Hct 37.7 L (39.0-53.0) % MCHC 29.3 L (31.0-37.0) g/dL RDW 16.8 H (11.5-15.5) % Plt Count 93 L (150-450) k/uL Carbon Dioxide 37 H (22-30) mmol/L BUN 40 H (9-20) mg/dL Creatinine 1.63 H (0.66-1.25) mg/dL POC Glucose (mg/dL) (70-110) mg/dL Total Protein 6.0 L (6.3-8.2) g/dL Albumin 3.1 L (3.5-5.0) g/dL Diabetes panel 04/12/22 Range/Units 09:10 Sodium 144 (137-145) mmol/L Potassium 3.9 (3.5-5.1) mmol/L Chloride 105 (98-107) mmol/L Carbon Dioxide 37 H (22-30) mmol/L BUN 40 H (9-20) mg/dL Creatinine 1.63 H (0.66-1.25) mg/dL Glucose 92 (74-99) mg/dL Calcium 8.9 (8.4-10.2) mg/dL AST 32 (17-59) U/L ALT 16 (4-49) U/L Alkaline Phosphatase 91 (38-126) U/L Total Protein 6.0 L (6.3-8.2) g/dL Albumin 3.1 L (3.5-5.0) g/dL Calcium panel 04/12/22 Range/Units 09:10 Calcium 8.9 (8.4-10.2) mg/dL Albumin 3.1 L (3.5-5.0) g/dL Pituitary panel 04/12/22 Range/Units 09:10 Sodium 144 (137-145) mmol/L Potassium 3.9 (3.5-5.1) mmol/L Chloride 105 (98-107) mmol/L Carbon Dioxide 37 H (22-30) mmol/L BUN 40 H (9-20) mg/dL Creatinine 1.63 H (0.66-1.25) mg/dL Glucose 92 (74-99) mg/dL Calcium 8.9 (8.4-10.2) mg/dL Adrenal panel 04/12/22 Range/Units 09:10 Sodium 144 (137-145) mmol/L Potassium 3.9 (3.5-5.1) mmol/L Chloride 105 (98-107) mmol/L Carbon Dioxide 37 H (22-30) mmol/L BUN 40 H (9-20) mg/dL Creatinine 1.63 H (0.66-1.25) mg/dL Glucose 92 (74-99) mg/dL Calcium 8.9 (8.4-10.2) mg/dL Total Bilirubin 0.9 (0.2-1.3) mg/dL AST 32 (17-59) U/L ALT 16 (4-49) U/L Alkaline Phosphatase 91 (38-126) U/L Total Protein 6.0 L (6.3-8.2) g/dL Albumin 3.1 L (3.5-5.0) g/dL
--- NOTE | 2022-04-12 13:16 | P.PN ---
Subjective Progress Note Date: 04/12/22 HISTORY OF PRESENT ILLNESS: The patient is 71-year-old male who follows in the office with Dr. Flores. He was admitted for acute heart failure exacerbation. He was given several doses of IV Lasix and then was started on Entresto, causing his creatinine to peak. His diuretics were held for 24 hours with improvement in his creatinine level, however were resumed by pulmonology the same day we resumed his Entresto. He was interviewed and examined lying comfortably in bed. He states he is feeling better since his admission but states he would have shortness of breath. He also reports some discomfort in his legs. 04/09/2022 Patient examined this morning at the bedside. Patient denies chest pain or pressure. He reports improvement in his shortness of breath. He remains on oral lasix 40mg BID. Creatinine today is 1.78. Telemetry reveals paced rhythm. 04/10/2022 Patient examined this morning at the bedside. He is wearing BiPap. He denies chest pain or pressure. Denies SOB. Chest x-ray reveals bilateral pleural effusions and large on the right side. Cardiac meds. There is some mild congestive heart failure. No significant change. Creatinine today 1.64. 04/11/2022 Patient examined this morning at the bedside. He denies chest pain or pressure. Denies SOB. He remains on oral lasix. Vital signs are stable. Creatinine 1.67. 04/12/2022 Patient examined this morning at the bedside. Patient denies chest pain or pressure. He denies shortness of breath. Vital signs are stable. Patient's Eliquis has been placed on hold. He is scheduled to undergo replacement of PEG tube today with general surgery. PHYSICAL EXAM: VITAL SIGNS: Reviewed. GENERAL: Well-developed in no acute distress. NECK: Supple. No JVD or thyromegaly LUNGS: Respirations even and unlabored. Lungs diminished. HEART: Regular rate and rhythm. S1 and S2 heard. EXTREMITIES: Normal range of motion. No clubbing or cyanosis. Peripheral pulses intact. Trace lower extremity edema ASSESSMENT: Acute on chronic congestive heart failure with reduced EF, EF 20% Elevated troponin secondary to heart failure and kidney disease Persistent atrial fibrillation, on anticoagulation Ischemic cardiomyopathy, status post AICD Hypertension Acute kidney injury, worsened with IV diuresis PLAN: Continue current cardiac medications Patient to undergo replacement of PEG tube today with Dr. Kim Portillo post procedure Recommend Entresto. This may be performed on an outpatient basis as patient has continued KERRIE Further recommendations pending patient course Patient to follow up outpatient with Dr. Curiel Nurse practitioner note has been reviewed by physician. Signing provider agrees with the documented findings, assessment, and plan of care. Objective - Vital Signs Vital signs: Vital Signs Temp 97.9 F 04/12/22 08:00 Pulse 67 04/12/22 12:00 Resp 16 04/12/22 12:00 BP 118/70 04/12/22 12:00 Pulse Ox 93 L 04/12/22 12:00 FiO2 35 04/12/22 03:36 Intake & Output 04/11/22 04/12/22 04/12/22 18:59 06:59 18:59 Output Total 600 500 Balance -600 -500 Output: Urine 600 500 Other: Voiding Method Indwelling Catheter Indwelling Catheter Indwelling Catheter - Labs CBC & Chem 7: 04/12/22 09:10 04/12/22 09:10 Labs: Abnormal Lab Results - Last 24 Hours (Table) 04/11/22 04/11/22 04/12/22 Range/Units 16:47 19:59 02:05 RBC (4.30-5.90) m/uL Hgb (13.0-17.5) gm/dL Hct (39.0-53.0) % MCHC (31.0-37.0) g/dL RDW (11.5-15.5) % Plt Count (150-450) k/uL Carbon Dioxide (22-30) mmol/L BUN (9-20) mg/dL Creatinine (0.66-1.25) mg/dL POC Glucose (mg/dL) 128 H 129 H 124 H (70-110) mg/dL Total Protein (6.3-8.2) g/dL Albumin (3.5-5.0) g/dL 04/12/22 04/12/22 Range/Units 09:10 09:10 RBC 3.78 L (4.30-5.90) m/uL Hgb 11.0 L (13.0-17.5) gm/dL Hct 37.7 L (39.0-53.0) % MCHC 29.3 L (31.0-37.0) g/dL RDW 16.8 H (11.5-15.5) % Plt Count 93 L (150-450) k/uL Carbon Dioxide 37 H (22-30) mmol/L BUN 40 H (9-20) mg/dL Creatinine 1.63 H (0.66-1.25) mg/dL POC Glucose (mg/dL) (70-110) mg/dL Total Protein 6.0 L (6.3-8.2) g/dL Albumin 3.1 L (3.5-5.0) g/dL
--- NOTE | 2022-04-12 13:32 | P.PN ---
Subjective Progress Note Date: 04/12/22 Principal diagnosis: non-STEMI, CHF exacerbation I was asked to evaluate this 71-year-old male patient because of hypoxic/hypercapnic respiratory failure. The patient is known to have coronary artery disease, known history of a severe ischemic myopathy with an ejection fraction of 20%, RV failure and the patient has a AICD in place and the patient also has a stage II diastolic heart failure. He has chronic into fibrillation, COPD, chronic hypoxic and hypercapnic respiratory failure is a former smoker. The patient remains in a hospital because of worsening shortness of breath. He also had increased lower extremity swelling. He had some limited cough and sputum production. During this course of his illness, the patient was given a blood gas initially indicating a pH of 7.32 with a pCO2 of 80 and pO2 of 95. Based on that, the patient was placed on BiPAP as the patient was getting short of breath and he was altered and he was having signs of CO2 narcosis. Currently is on a BiPAP at a pressures of 12/5 cm of water and FiO2 of 35%. The. Blood gases are essentially unchanged. Patient at 7.3 with a pO2 of 82 and there is some limited improvement in the oxygenation which is up to 118. He has developed significant metabolic alkalosis. Serum bicarb is up to 41 and his sodium is at 140. The bronchoscope 6.4 with a hemoglobin of 11.1. The viral screen has not been done. Co Supervisor [employer] on the case. In terms of treatment, the patient is currently on IV Lasix 40 mg every 12 hours. He is in atrial fibrillation and the patient is on long-term and cognition without liquids 2.5 mg twice a day. He is taking Toprol-XL 100 mg by mouth daily. Remains on asp irin and he is on DuoNeb nebulized treatments to be taken only on an as-needed basis. 04/08/2022, the patient is feeling well. No signs of any CO2 narcosis. The patient is being treated for CHF and acute on chronic hypoxic and hypercapnic respiratory failure. The patient is on Lasix for now. He is on 4 L of oxygen by nasal cannula with a pulse ox of 98%. Overall fluid balance over the past 24 hours is -2.9 L. The patient's serum bicarbs of 41 with a sodium level of 140 and a potassium level of 4.1. The w diuretics bc 6.4 with a hemoglobin of 11.1. The patient's diuretics and form of Lasix 40 mg IV every 8 hours. He is currently on oxygen at 4 L with a pulse ox of 90%.His feet a lot The patient is seen today 04/09/2022 in follow-up on the selective care unit. He is currently sitting up in bed. Maintained on BiPAP 12/5 and 35% FiO2. White count 4.3. Hemoglobin 10.6. White count 88,000. Sodium 142. Potassium 4.1. Bicarb 39. BUN 47. Creatinine 1.78. Glucose 106. He is continued on oral Lasix and Diamox. Anticoagulated with Eliquis. Remains on bronchodilators. Currently in a -3.3 L balance. Continues to diurese well. The patient is seen today 04/10/2022 in follow-up on the selective care unit. He is currently sitting up in a chair at the bedside. Awake and alert in no acute distress. Maintaining O2 saturations in the 90s on 2 L/m per nasal cannula. Chest x-ray revealed bilateral pleural effusions right greater than left. Cardiomegaly. Some mild congestive heart failure. No significant change. He's been afebrile. Hemodynamically stable. He remains nothing by mouth. He continues to be nourished via tube feeding White count 4.2. Hemoglobin 10.8. Platelets 85,000. Arterial blood gases on 28% revealed a pO2 of 85, pCO2 66, pH 7.37. Sodium 144. Potassium 4.3. Bicarb 41. BUN 44. Creatinine 1.64. Glucose 84. He remains on diuretics, Diamox. Currently in a -2.6 L balance. Anticoagulated with Eliquis.negative I'm evaluating this patient today on 04/11/2022 in follow-up on the selective care unit. The patient is sitting up in the recliner,on 2 L nasal cannula, in no acute distress. patient continues to receive Jevity nutrition at 50 mL per hour through his PEG tube due to ongoing aspiration issues. the patient has been adamant that he wants to eat, despite this aspiration risk, so a repeat swallowing evaluation was performed by speech therapy. The evaluation showed poor laryngeal closure and likely silent aspiration. The recommendation was to continue nothing by mouth status, and to continue to receive nutrition through his PEG tube. no new chest x-ray to review today. CBC shows that she can 4.6, hemoglobin 10.9, hematocrit 36.1, platelets 95,000. BMP from today shows sodium 143, potassium 4, chloride 103, serum CO2 37, BUN 43, creatinine 1.67, glucose 137. patient continues to receive DuoNeb inhalation, Eliquis for anticoagulation, Lasix twice a day, Diamox, and Protonix for GI prophylaxis. the patient's fluid balance is -2.8 L over the last 24 hours. vital signs remain stable. Patient is afebrile. I'm reevaluating this patient on 04/12/2022 in follow-up on the selective care unit. He appears quite comfortable, sitting up in the recliner, on 2 L nasal cannula. Patient's tube feeding is currently on hold in preparation for an EGD with Dr. Gant. The patient will be going for gastrostomy tube replacement because of damaged external tube. The brain CT from yesterday did not demonstrate any acute abnormalities, however, it did show old left parietal lobe infarct and old sean-infarct ischemic change and/or chronic white matter ischemic changes in the periventricular regions. No new chest x-ray to review. CBC from today shows a WBC count of 4.6, hemoglobin 11, hematocrit 37.7, platelets 93,000. BMP from today is stable sodium of 144, potassium 3.9, chloride 105, serum CO2 37, BUN 40, creatinine 1.63, glucose 92. This appears to be his baseline renal function. From a pulmonary standpoint the patient is managed on DuoNeb inhalation. Continues to receive twice a day Lasix. Patient's fluid balance is -1.1 L in the last 24 hours. He continues to receive Protonix for GI prophylaxis. Eliquis is on hold in preparation for procedure. Vital signs remain stable. Patient remains afebrile. Objective - Vital Signs Vital signs: Vital Signs Temp 97.9 F 04/12/22 08:00 Pulse 67 04/12/22 12:00 Resp 16 04/12/22 12:00 BP 118/70 04/12/22 12:00 Pulse Ox 93 L 04/12/22 12:00 FiO2 35 04/12/22 03:36 Intake & Output 04/11/22 04/12/22 04/12/22 18:59 06:59 18:59 Output Total 600 500 Balance -600 -500 Output: Urine 600 500 Other: Voiding Method Indwelling Catheter Indwelling Catheter Indwelling Catheter - Exam GENERAL EXAM: Alert, 71-year-old male, up in a chair at the bedside. HEAD: Normocephalic/atraumatic. EYES: Normal reaction of pupils, equal size. Conjunctiva pink, sclera white. NOSE: Clear with pink turbinates. THROAT: No erythema or exudates.continue NECK: No masses, no JVD, no thyroid enlargement, no adenopathy. CHEST: No chest wall deformity. Symmetrical expansion. LUNGS: Equal air entry with scattered basilar crackles bilaterally. No rhonchi, wheezes, . currently on 2 L/m per nasal cannula. no conversational dyspnea or accessory muscle use. CVS: Regular rate and rhythm, normal S1 and S2, no gallops, no murmurs, no rubs ABDOMEN: PEG tube exit site clean and dry. Jevity tube feedings paused. Abdomen is soft, nontender. No hepatosplenomegaly, normal bowel sounds, no guarding or rigidity. EXTREMITIES: No clubbing, no cyanosis, no edema, 2+ pulses and upper and lower extremities. MUSCULOSKELETAL: Muscle strength and tone normal. SPINE: No scoliosis or deformity SKIN: No rashes CENTRAL NERVOUS SYSTEM: Patient is alert and oriented 1. No focal deficits, tone is normal in all 4 extremities. PSYCHIATRIC: Appropriate affect. - Labs CBC & Chem 7: 04/12/22 09:10 04/12/22 09:10 Labs: Abnormal Lab Results - Last 24 Hours (Table) 04/11/22 04/11/22 04/12/22 Range/Units 16:47 19:59 02:05 RBC (4.30-5.90) m/uL Hgb (13.0-17.5) gm/dL Hct (39.0-53.0) % MCHC (31.0-37.0) g/dL RDW (11.5-15.5) % Plt Count (150-450) k/uL Carbon Dioxide (22-30) mmol/L BUN (9-20) mg/dL Creatinine (0.66-1.25) mg/dL POC Glucose (mg/dL) 128 H 129 H 124 H (70-110) mg/dL Total Protein (6.3-8.2) g/dL Albumin (3.5-5.0) g/dL 04/12/22 04/12/22 Range/Units 09:10 09:10 RBC 3.78 L (4.30-5.90) m/uL Hgb 11.0 L (13.0-17.5) gm/dL Hct 37.7 L (39.0-53.0) % MCHC 29.3 L (31.0-37.0) g/dL RDW 16.8 H (11.5-15.5) % Plt Count 93 L (150-450) k/uL Carbon Dioxide 37 H (22-30) mmol/L BUN 40 H (9-20) mg/dL Creatinine 1.63 H (0.66-1.25) mg/dL POC Glucose (mg/dL) (70-110) mg/dL Total Protein 6.0 L (6.3-8.2) g/dL Albumin 3.1 L (3.5-5.0) g/dL Assessment and Plan Assessment: Acute on chronic hypoxic/hypercapnic respiratory failure, essentially related to an acute exacerbation of systolic congestive heart failure. The patient has a chest x-ray that shows cardiomegaly and pulmonary edema and small bilateral pleural effusions. ProBNP level is elevated. Most recent echocardiogram that was done on 10/13/2021 showed severe global left ventricular hypokinesis with an ejection fraction of 20% and the patient also had a grade 3 diastolic dysfunction. Remains on a combination of Lasix and diamox. fluid balance is - 1.1 L in the last 24 hours. 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 Remains nothing by mouth, tube feedings continued Scheduled EGD for PEG tube replacement. from a pulmonary standpoint, the patient is cleared for discharge. We will follow as needed. I have personally seen and examined the patient, performed the documentation and the assessment and plan as written. Number of minutes spent on the visit: 10 Time with Patient: Less than 30
[2022-04-12] MEDS ORDERED: PROPOFOL 10 MG/ML 20 ML VIAL IV ONE (13:37)
[2022-04-12] MEDS ORDERED: LIDOCAINE 2% INJ 20 MG/ML (2 ML VIAL) ONE (13:37)
[2022-04-12] MEDS ORDERED: LACTATED RINGERS 1,000 ML IV ONE (13:41)
--- NOTE | 2022-04-12 13:57 | P.PN ---
Progress Note - Text Progress Note Date: 04/12/22 Instructed by anesthesia to discuss CODE STATUS with power of business attorney. Had a long discussion with the patient's power of business attorney regarding CODE STATUS. Will make full code for this upcoming procedure until 4 PM. He will go back to no code at 4 PM.
--- NOTE | 2022-04-12 16:28 | P.CNNES ---
History of Present Illness Consult date: 04/12/22 Requesting physician: Emily Brewer Reason for Consult: Altered mentation History of Present Illness: Patient is a 71-year-old male came to the hospital on 04/04/2022 for bilateral feet swelling. Patient was diagnosed with non-STEMI, CHF exacerbation. Patient has known history of CVA with dysphagia and has had back to placed on 08/30/2019 for dysphagia and aspiration pneumonia. CT head revealed old left parietal lobe infarct. Old sean-infarct ischemic change and/or chronic white matter ischemic changes in the periventricular regions. I personally reviewed CT head, and there is evidence of an old left MCA territory stroke involving the adjacent left frontal, parietal and temporal region. No acute process. EKG showed electronic ventricular pacemaker. Chest x-ray revealed bilateral pleural effusions and larger on the right side. Cardiomegaly. There is likely some mild congestive heart failure. No significant change. Blood tests shows WBC 4.6 hemoglobin 11.0, platelets 93. Electrolytes are normal, BUN 40, creatinine 1.63. Hepatic panel is normal. Ammonia is < 9. Patient's last ABG from 04/10/2022 revealed pH of 7.37, pCO2 66, O2 85 and saturation 97.4. Patient's maximum pCO2 was 83 on 04/07/2022. Hemoglobin A1c 5.1 on 04/02/2019. B12 500 folate 6.8 on 10/14/2021. TSH normal. Patient had a normal acetylcholine receptor antibody on 08/22/2019. Patient has been seen by myself on 10/12/2021 for acute encephalopathy. Patient had an EEG, which revealed background slowing of mild to moderate degree consistent with encephalopathy. No epileptiform activity was seen. Gabapentin dose was decreased to 300 mg 3 times a day. Patient was on Eliquis 5 mg twice a day. CTA of the neck showed bilateral carotid bifurcation predominate calcified plaque with at least 50% stenosis. No evidence of dissection of the cervical internal carotid arteries or vertebral arteries. CTA of the head showed no aneurysm. Patient at home on Neurontin 800 mg 3 times a day, Lasix 80 mg daily, metoprolol 100 mg daily, Eliquis 5 mg twice a day, albuterol, Crestor 20 mg, aspirin 81 mg, allopurinol, omeprazole and sertraline 100 mg twice a day. I spoke to patient's significant other, who provided with additional history. She mentions that patient suffered from a stroke in 2009, which affected his right facial region. His speech was affected but improved. Now he knows what he wants to say, but sometimes has difficulty getting words out. He had undergone pacemaker defibrillator placement for atrial fibrillation. In 2018 he developed dysphagia and underwent PEG placement. She states that patient was a heavy smoker, smoked nonfiltered cigarettes one pack per day for 50 years. Lately has been smoking filtered cigarettes about 4-6 per day. He also used to be a heavy drinker would drink half a gallon 4 years. He quit drinking for last 3 years. Patient at present lives with his significant other, and their 14-year-old daughter. He uses cane most of the time since his COPD exacer bation. Review of Systems ROS unobtainable: due to mental status Past Medical History Past Medical History: Atrial Fibrillation, Heart Failure, COPD, CVA/TIA, Eye Disorder, Hearing Disorder / Deafness, Hyperlipidemia, Hypertension, Skin Disorder, Sleep Apnea/CPAP/BIPAP Additional Past Medical History / Comment(s): CVA approx 2009-speech affected and slight rt. sided weakness,cataracts, bruises easily due to coumadin,does not wear cpap,neuropathy moe. feet History of Any Multi-Drug Resistant Organisms: None Reported Past Surgical History: AICD, Heart Catheterization With Stent Additional Past Surgical History / Comment(s): AICD/Pacemaker, PEG tube placed in [address] Anglin in 2019 Past Anesthesia/Blood Transfusion Reactions: No Reported Reaction Date of Last Stent Placement:: unk Type of Cardiac Device: AICD Device Placement Date:: 2009 Past Psychological History: Anxiety, Depression, PTSD Additional Psychological History / Comment(s): PTSD 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 war Smoking Status: Current every day smoker Past Alcohol Use History: None Reported Additional Past Alcohol Use History / Comment(s): states he stopped smoking a pack per day two days ago Past Drug Use History: None Reported - Past Family History Brother(s) Family Medical History: Deep Vein Thrombosis (DVT) Medications and Allergies Home Medications Medication Instructions Recorded Confirmed Type Aspirin [Adult Low Dose Aspirin EC] 81 mg PO DAILY 09/02/17 04/04/22 History Omeprazole [PriLOSEC] 20 mg PO BID 09/02/17 04/04/22 History Sertraline HCl [Zoloft] 100 mg PO BID 09/02/17 04/04/22 History allopurinoL [Zyloprim] 100 mg PO BID 09/02/17 04/04/22 History Acetaminophen-Codeine 300-30mg 1 tab PO TID PRN 04/01/19 04/04/22 History [Tylenol w/codeine #3] Rosuvastatin Calcium [Crestor] 20 mg PO HS 08/20/19 04/04/22 History Albuterol Sulfate [Albuterol 2 puff INHALATION RT-QID PRN 12/27/20 04/04/22 History Sulfate Hfa] Apixaban [Eliquis] 5 mg PO BID 12/27/20 04/04/22 History Jevity 1.5 Jakob Liquid 3 can PO DAILY 12/27/20 04/04/22 History Metoprolol Succinate (ER) [Toprol 100 mg PO DAILY 12/27/20 04/04/22 History XL] Ipratropium-Albuterol Nebulize 3 ml INHALATION RT-QID PRN 02/08/21 04/04/22 History [Duoneb 0.5 mg-3 mg/3 ml Soln] Mag-Ox 420mg 420 mg PO BID 02/08/21 04/04/22 History Gabapentin [Neurontin] 800 mg PO TID 12/28/21 04/04/22 History Furosemide [Lasix] 80 mg PO DAILY 02/15/22 04/04/22 History Allergies Allergy/AdvReac Type Severity Reaction Status Date / Time metolazone [From Zaroxolyn] Allergy Rash/Hives Verified 04/04/22 19:09 warfarin [From Coumadin] Allergy Unknown - Verified 04/04/22 19:09 Per [facility] list fluticasone AdvReac Dyspnea Verified 04/04/22 19:09 [From Wixela Inhub] fluvastatin AdvReac weakness/muscle Verified 04/04/22 19:09 pain rosuvastatin [From Crestor] AdvReac muscle pain Verified 04/04/22 19:09 salmeterol AdvReac Dyspnea Verified 04/04/22 19:09 [From Wixela Inhub] simvastatin AdvReac muscle pain Verified 04/04/22 19:09 sulfamethoxazole AdvReac Abdominal Verified 04/04/22 19:09 [From Bactrim] Pain trimethoprim [From Bactrim] AdvReac Abdominal Verified 04/04/22 19:09 Pain Physical Examination - Vital Signs Vital Signs: Vital Signs Temp Pulse Pulse Resp BP Pulse Ox FiO2 04/12/22 08:00 97.9 F 68 16 137/70 90 L 04/12/22 07:52 78 04/12/22 07:40 78 04/12/22 03:36 66 14 118/75 99 35 04/12/22 02:00 70 18 04/12/22 00:00 70 18 108/65 99 35 04/11/22 23:52 35 04/11/22 21:19 35 04/11/22 20:00 98.2 F 78 18 120/76 98 04/11/22 16:00 97.6 F 68 17 116/70 94 L 04/11/22 12:00 97.6 F 67 16 106/70 95 04/11/22 11:31 74 18 04/11/22 11:19 72 18 Intake and Output 04/11/22 04/12/22 04/12/22 22:59 06:59 14:59 Output Total 500 Balance -500 Output: Urine 500 Other: Voiding Method Indwelling Catheter Indwelling Catheter Patient is an elderly male, who appears obviously encephalopathic. Patient is awake, restless, encephalopathic. Patient also appears aphasic. I asked about headache, patient says "physical, that was my physical". When I showed him a pen, patient states "just my name". Patient appears to have aphasia. Uncertain if it is new or baseline. Patient cannot name any object presented. Regarding repetition, he was able to repeat 1 phrase, but not the other. Significant paraphasic errors. Attention, concentration and fund of knowledge is severely limited. Patient could not tell his name or age. Comprehension also affected, as he could not point to the door or the window. On cranial nerve examination, pupils are equal, round and reacting to light. Hernán dunn has some corneal ulcer involving the medial region of the right eye. His visual tse couldn't be tested. Extraocular muscles are intact with no nystagmus. Face is symmetric, did not protrude his tongue. Lower cranial nerves cannot be tested. Hearing appears decreased. He has laceration over the bridge of the nose. On muscle strength testing, there is no pronator drift and the strength is normal in arms and legs distally and proximally. Patient has mild tremors of outstretched hands. Deep tendon reflexes are symmetric, 2 at the biceps, 1 brachioradialis, 2 at the knees, 0 ankles and plantars are downgoing bilaterally. Sensory to touch cannot be assessed, but he does withdraw to painful stimuli in all 4 limbs. Cerebellar function showed no ataxia for [id number] testing. Tone is mildly increased, bulk of muscles overall slightly decreased. Gait deferred.. On general examination, there is no carotid bruit or murmur, S1-S2 audible. Chest is clear on consultation. Abdomen is soft nontender. No organomegaly, bowel sounds present. Patient has hyperpigmentation of the skin, bruises and some ecchymosis noticed. Addendum: Patient seen again at 7 PM. Patient appears less encephalopathic, more calm, but still aphasic. Patient able to tell me that his daughter is 14 years old. He then perseverates on 14. Results - Laboratory Findings CBC and BMP: 04/12/22 09:10 04/12/22 09:10 Abnormal Lab Findings: Abnormal Labs 04/04/22 04/04/22 04/04/22 17:25 17:25 17:25 RBC 3.84 L Hgb 11.8 L Hct 37.7 L MCV MCHC RDW 16.4 H Plt Count 104 L Lymphocytes # 0.7 L INR 1.2 H APTT ABG pH ABG pCO2 ABG pO2 ABG HCO3 ABG Total CO2 ABG O2 Saturation Chloride 93 L Carbon Dioxide 37 H BUN 49 H Creatinine 1.51 H Glucose POC Glucose (mg/dL) Alkaline Phosphatase 133 H Troponin I Total Protein Albumin 04/04/22 04/04/22 04/05/22 17:25 20:07 00:10 RBC Hgb Hct MCV MCHC RDW Plt Count Lymphocytes # INR APTT 68.9 H ABG pH ABG pCO2 ABG pO2 ABG HCO3 ABG Total CO2 ABG O2 Saturation Chloride Carbon Dioxide BUN Creatinine Glucose POC Glucose (mg/dL) Alkaline Phosphatase Troponin I 0.046 H* 0.046 H* Total Protein Albumin 04/05/22 04/05/22 04/05/22 08:39 08:39 08:39 RBC 4.03 L Hgb 11.9 L Hct MCV MCHC 29.5 L RDW 16.9 H Plt Count 101 L Lymphocytes # INR 1.2 H APTT 49.3 H ABG pH ABG pCO2 ABG pO2 ABG HCO3 ABG Total CO2 ABG O2 Saturation Chloride 96 L Carbon Dioxide 38 H BUN 49 H Creatinine 1.56 H Glucose 105 H POC Glucose (mg/dL) Alkaline Phosphatase Troponin I Total Protein Albumin 04/06/22 04/06/22 04/06/22 07:48 07:48 16:15 RBC 3.81 L Hgb 11.6 L Hct 37.8 L MCV MCHC 30.7 L RDW 16.9 H Plt Count 100 L Lymphocytes # INR APTT ABG pH 7.32 L ABG pCO2 80 H* ABG pO2 ABG HCO3 41 H* ABG Total CO2 43 H ABG O2 Saturation 98.3 H Chloride 97 L Carbon Dioxide 39 H BUN 55 H Creatinine 1.90 H Glucose 101 H POC Glucose (mg/dL) Alkaline Phosphatase Troponin I Total Protein Albumin 04/07/22 04/07/22 04/07/22 10:58 10:58 11:42 RBC 3.66 L Hgb 11.1 L Hct 36.5 L MCV MCHC 30.5 L RDW 16.6 H Plt Count 97 L Lymphocytes # INR APTT ABG pH 7.31 L ABG pCO2 83 H* ABG pO2 118 H ABG HCO3 42 H* ABG Total CO2 45 H ABG O2 Saturation 99.2 H Chloride Carbon Dioxide 41 H* BUN 56 H Creatinine 1.37 H Glucose POC Glucose (mg/dL) Alkaline Phosphatase Troponin I Total Protein Albumin 04/08/22 04/08/22 04/08/22 10:42 10:42 17:20 RBC 3.56 L Hgb 10.8 L Hct 35.7 L MCV 100.1 H MCHC 30.4 L RDW 16.8 H Plt Count 81 L Lymphocytes # INR APTT ABG pH ABG pCO2 ABG pO2 ABG HCO3 ABG Total CO2 ABG O2 Saturation Chloride 97 L Carbon Dioxide 40 H 40 H BUN 49 H 49 H Creatinine 1.62 H 1.81 H Glucose 117 H 126 H POC Glucose (mg/dL) Alkaline Phosphatase Troponin I Total Protein Albumin 04/09/22 04/09/22 04/10/22 07:02 07:02 05:09 RBC 3.51 L Hgb 10.6 L Hct 35.0 L MCV MCHC 30.2 L RDW 16.8 H Plt Count 88 L Lymphocytes # INR APTT ABG pH ABG pCO2 66 H ABG pO2 ABG HCO3 38 H ABG Total CO2 40 H ABG O2 Saturation 97.4 H Chloride Carbon Dioxide 39 H BUN 47 H Creatinine 1.78 H Glucose 106 H POC Glucose (mg/dL) Alkaline Phosphatase Troponin I Total Protein Albumin 04/10/22 04/10/22 04/11/22 07:42 07:42 00:53 RBC 3.61 L Hgb 10.8 L Hct 36.7 L MCV 101.7 H MCHC 29.3 L RDW 16.6 H Plt Count 85 L Lymphocytes # INR APTT ABG pH ABG pCO2 ABG pO2 ABG HCO3 ABG Total CO2 ABG O2 Saturation Chloride Carbon Dioxide 41 H* BUN 44 H Creatinine 1.64 H Glucose POC Glucose (mg/dL) 145 H Alkaline Phosphatase Troponin I Total Protein Albumin 04/11/22 04/11/22 04/11/22 06:15 07:37 07:37 RBC 3.68 L Hgb 10.9 L Hct 36.1 L MCV MCHC 30.0 L RDW 17.2 H Plt Count 95 L Lymphocytes # INR APTT ABG pH ABG pCO2 ABG pO2 ABG HCO3 ABG Total CO2 ABG O2 Saturation Chloride Carbon Dioxide 37 H BUN 43 H Creatinine 1.67 H Glucose 137 H POC Glucose (mg/dL) 141 H Alkaline Phosphatase Troponin I Total Protein Albumin 04/11/22 04/11/22 04/11/22 11:47 16:47 19:59 RBC Hgb Hct MCV MCHC RDW Plt Count Lymphocytes # INR APTT ABG pH ABG pCO2 ABG pO2 ABG HCO3 ABG Total CO2 ABG O2 Saturation Chloride Carbon Dioxide BUN Creatinine Glucose POC Glucose (mg/dL) 120 H 128 H 129 H Alkaline Phosphatase Troponin I Total Protein Albumin 04/12/22 04/12/22 04/12/22 02:05 09:10 09:10 RBC 3.78 L Hgb 11.0 L Hct 37.7 L MCV MCHC 29.3 L RDW 16.8 H Plt Count 93 L Lymphocytes # INR APTT ABG pH ABG pCO2 ABG pO2 ABG HCO3 ABG Total CO2 ABG O2 Saturation Chloride Carbon Dioxide 37 H BUN 40 H Creatinine 1.63 H Glucose POC Glucose (mg/dL) 124 H Alkaline Phosphatase Troponin I Total Protein 6.0 L Albumin 3.1 L Assessment and Plan Assessment: * Altered mental status, possible toxic metabolic encephalopathy * History of CVA, with some residual expressive aphasia * Dysphagia, history of PEG placement, needs revision. * Atrial fibrillation on long-term anticoagulation with Eliquis * Chronic renal insufficiency, mild to moderate * Acute on chronic hypoxic/hypercapnic respiratory failure * COPD * Congestive heart failure due to ischemic cardiomyopathy with EF <20%. * Hypercapnia * Tobacco use * Previous history of alcoholism. * History of AICD placement. * Hypertension * Coronary artery disease Plan: * CT had revealed old left parietal lobe infarct with old sean-infarct ischemic changes. * Treatment of medical conditions as per IM and other specialties. * Patient undergoing revision of PEG tube. * Patient was taking high dose gabapentin 800 mg 3 times a day prior to arrival. While in the hospital, he was receiving Neurontin 400 mg 3 times a day, which was discontinued on 04/09/2022. The patient could potentially be withdrawing from Neurontin. We will resume Neurontin at a lower dose 300 mg 3 times a day. * EEG rule out epileptiform activity. * Neurology will follow. Thank you for the consult. Time with Patient: Greater than 30
[2022-04-12 17:14] LABS: Glucose,Whole Blood 84 mg/dL (70-110)
--- NOTE | 2022-04-12 17:21 | P.PCN ---
Date of Procedure: 04/12/22 Procedure(s) Performed: Preoperative Dx: Malfunctioning gastrostomy tube Postoperative Dx: Same Procedure: EGD with PEG tube replacement Anesthesia: Sedation Endoscopist: Dr. Alvarez Specimens: None Endoscopic Procedure: The patient was on the endoscopy table in the left decubitus position. The Olympus gastroscope was inserted into the oropharynx and passed under direct visualization to the region of the third portion of the duodenum. From that point the scope was slowly withdrawn inspecting all surfa daniel carefully. There was no evidence of obstruction. There was mild inflammation in the stomach. The inner portion of the previous PEG tube was noted. I was able to remove the PEG tube from the abdominal wall using traction. This was fully intact. A non-balloon 20-Italian replacement was then put back into the stomach under direct visualization. No bleeding was seen The scope was gently withdrawn. The patient was then taken to the recovery room in stable condition per anesthesia guidelines.
[2022-04-12] MEDS: METOPROLOL SUCCINATE (ER) 100 MG TAB.ER.24H PO SCH (17:31)
[2022-04-12 20:01] LABS: Glucose,Whole Blood 156 mg/dL (70-110)
[2022-04-12] MEDS: ATORVASTATIN 80 MG TAB PO SCH (20:04)
[2022-04-12] MEDS: GABAPENTIN 300 MG CAP PO SCH (20:04)
[2022-04-12] MEDS: MELATONIN 3 MG TABLET PO SCH (20:04)
--- NOTE | 2022-04-12 20:18 | EEG ---
ELECTROENCEPHALOGRAM REPORT PREAMBLE: This is a 71-year-old male with altered mental status. CURRENT MEDICATIONS: 1. Diamox. 2. Albuterol. 3. Zyloprim. 4. Eliquis. 5. Aspirin. 6. Lipitor. 7. Lasix. 8. Insulin. 9. Melatonin. 10.Toprol. 11.Protonix. EEG FINDINGS: This is a 21-channel digital EEG recorded with video component, utilizing 10/20 international system with referential and bipolar montages. The patient was awake sporadically during the study, initially was fairly well formed, moderately well regulated, mixed frequencies of some alpha and fast frequency beta activity seen in bihemispheric region. The patient was mostly drowsy with the presence of bilaterally symmetric theta frequency rhythm. Deeper stages of sleep were not clearly seen. Constant artifact was noticed at T5 and C4 electrodes, which appears to have some myogenic quality. Different stages of sleep were not seen. No definitive focal or generalized epileptiform activity was seen. IMPRESSION: This is an abnormal EEG because of mild background slowing, suggestive of mild encephalopathy. No definitive epileptiform activity was seen. MMODL / IJN: [id number] / KHLOE
[2022-04-13 01:53] LABS: Glucose,Whole Blood 187 mg/dL (70-110)
[2022-04-13] MEDS: INSULIN ASPART (NovoLOG) 100 UNIT/ML VIAL SQ SCH ×4 (02:00→19:59)
[2022-04-13 06:51] LABS: Glucose,Whole Blood 133 mg/dL (70-110)
[2022-04-13 07:24] LABS: Anisocytosis Slight; HCT 36.4 % (39.0-53.0); Hypochromasia Marked; MCH 30.1 pg (25.0-35.0); MCHC 30.2 g/dL (31.0-37.0); MCV 99.9 fL (80.0-100.0); Macrocytosis Slight; Mean Platelet Volume 10.3; Platelet Count 100 k/uL (150-450); Poikilocytosis Slight; RBC 3.64 m/uL (4.30-5.90); WBC 5.1 k/uL (3.8-10.6)
[2022-04-13 07:41] LABS: Calcium 8.9 mg/dL (8.4-10.2); Magnesium 2.4 mg/dL (1.6-2.3); Phosphorus 3.9 mg/dL (2.5-4.5); Potassium 3.9 mmol/L (3.5-5.1)
[2022-04-13] MEDS: GABAPENTIN 300 MG CAP PO SCH ×2 (08:54→19:58)
[2022-04-13] MEDS: APIXABAN 5 MG TAB PO SCH ×2 (08:54→19:57)
[2022-04-13] MEDS: ASPIRIN 81 MG PO SCH (08:54)
[2022-04-13] MEDS: PANTOPRAZOLE 40 MG TABLET PO SCH (08:54)
[2022-04-13] MEDS: acetaZOLAMIDE 250 MG TAB PO SCH ×2 (08:54→19:58)
[2022-04-13] MEDS: FUROSEMIDE 40 MG TAB PO SCH ×2 (08:54→17:08)
[2022-04-13] MEDS: allopurinoL 100 MG TAB PO SCH ×2 (08:54→19:57)
[2022-04-13] MEDS ORDERED: FUROSEMIDE 10 MG/ML 4 ML VIAL IV STA (09:25)
--- NOTE | 2022-04-13 10:35 | P.PN ---
Subjective Progress Note Date: 04/13/22 HISTORY OF PRESENT ILLNESS: The patient is 71-year-old male who follows in the office with Dr. Flores. He was admitted for acute heart failure exacerbation. He was given several doses of IV Lasix and then was started on Entresto, causing his creatinine to peak. His diuretics were held for 24 hours with improvement in his creatinine level, however were resumed by pulmonology the same day we resumed his Entresto. He was interviewed and examined lying comfortably in bed. He states he is feeling better since his admission but states he would have shortness of breath. He also reports some discomfort in his legs. 04/09/2022 Patient examined this morning at the bedside. Patient denies chest pain or pressure. He reports improvement in his shortness of breath. He remains on oral lasix 40mg BID. Creatinine today is 1.78. Telemetry reveals paced rhythm. 04/10/2022 Patient examined this morning at the bedside. He is wearing BiPap. He denies chest pain or pressure. Denies SOB. Chest x-ray reveals bilateral pleural effusions and large on the right side. Cardiac meds. There is some mild congestive heart failure. No significant change. Creatinine today 1.64. 04/11/2022 Patient examined this morning at the bedside. He denies chest pain or pressure. Denies SOB. He remains on oral lasix. Vital signs are stable. Creatinine 1.67. 04/12/2022 Patient examined this morning at the bedside. Patient denies chest pain or pressure. He denies shortness of breath. Vital signs are stable. Patient's Eliquis has been placed on hold. He is scheduled to undergo replacement of PEG tube today with general surgery. 04/13/2022 Patient examined this morning at the bedside. Patient denies chest pain or pressure. He reports shortness of breath this morning. He is requiring supplemental oxygen to maintain oxygen saturations greater than 92%. He underwent replacement of his PEG tube yesterday with general surgery. PHYSICAL EXAM: VITAL SIGNS: Reviewed. GENERAL: Well-developed in no acute distress. NECK: Supple. No JVD or thyromegaly LUNGS: Respirations even and unlabored. Lungs with left-sided crackles and severely diminished breath sounds on the right side HEART: Regular rate and rhythm. S1 and S2 heard. EXTREMITIES: Normal range of motion. No clubbing or cyanosis. Peripheral pulses intact. Trace lower extremity edema ASSESSMENT: Acute on chronic congestive heart failure with reduced EF, EF 20% Elevated troponin secondary to heart failure and kidney disease Persistent atrial fibrillation, on anticoagulation Ischemic cardiomyopathy, status post AICD Hypertension Acute kidney injury, worsened with IV diuresis PLAN: Continue current cardiac medications Give Lasix 40 mg IV 1 dose Obtain chest x-ray Recommend Entresto. This may be performed on an outpatient basis as patient has continued KERRIE Further recommendations pending patient course Patient to follow up outpatient with Dr. Curiel Nurse practitioner note has been reviewed by physician. Signing provider agrees with the documented findings, assessment, and plan of care. Objective - Vital Signs Vital signs: Vital Signs Temp 97.7 F 04/13/22 07:59 Pulse 68 04/13/22 07:59 Resp 20 04/13/22 07:59 BP 124/89 04/13/22 07:59 Pulse Ox 99 04/13/22 07:59 FiO2 35 04/13/22 00:19 Intake & Output 04/12/22 04/13/22 04/13/22 18:59 06:59 18:59 Intake Total 200 Output Total 1100 700 Balance -900 -700 Intake: IV 200 Output: Urine 1100 700 Other: Voiding Method Indwelling Catheter Indwelling Catheter Indwelling Catheter - Labs CBC & Chem 7: 04/13/22 06:43 04/13/22 06:43 Labs: Abnormal Lab Results - Last 24 Hours (Table) 04/12/22 04/13/22 04/13/22 Range/Units 20:00 01:52 06:43 RBC 3.64 L (4.30-5.90) m/uL Hgb 11.0 L (13.0-17.5) gm/dL Hct 36.4 L (39.0-53.0) % MCHC 30.2 L (31.0-37.0) g/dL RDW 17.0 H (11.5-15.5) % Plt Count 100 L (150-450) k/uL Sodium (137-145) mmol/L Carbon Dioxide (22-30) mmol/L BUN (9-20) mg/dL Creatinine (0.66-1.25) mg/dL Glucose (74-99) mg/dL POC Glucose (mg/dL) 156 H 187 H (70-110) mg/dL Magnesium (1.6-2.3) mg/dL 04/13/22 04/13/22 Range/Units 06:43 06:50 RBC (4.30-5.90) m/uL Hgb (13.0-17.5) gm/dL Hct (39.0-53.0) % MCHC (31.0-37.0) g/dL RDW (11.5-15.5) % Plt Count (150-450) k/uL Sodium 146 H (137-145) mmol/L Carbon Dioxide 36 H (22-30) mmol/L BUN 42 H (9-20) mg/dL Creatinine 1.60 H (0.66-1.25) mg/dL Glucose 125 H (74-99) mg/dL POC Glucose (mg/dL) 133 H (70-110) mg/dL Magnesium 2.4 H (1.6-2.3) mg/dL
--- NOTE | 2022-04-13 11:29 | XR ---
EXAMINATION TYPE: XR chest 1V portable DATE OF EXAM: 04/13/2022 Comparison: 04/09/2022 Clinical History: 71-year-old male SOB Findings: Left anterior chest wall ICD generator with 2 right ventricular leads. Heart mild to moderately enlar ged. Interstitial/vascular prominence. Ongoing moderate right and small left pleural effusions with a djacent opacity. Overall similar appearance. Impression: 1. Overall similar CHF with mild pulmonary vascular congestion. 2. Ongoing moderate right and small left pleural effusions with adjacent atelectasis and/or consolida tion.
[2022-04-13 11:45] LABS: Glucose,Whole Blood 131 mg/dL (70-110)
[2022-04-13] MEDS: METOPROLOL SUCCINATE (ER) 100 MG TAB.ER.24H PO SCH (12:07)
[2022-04-13] MEDS: TAMSULOSIN 0.4 MG CAP.ER.24H PO SCH (12:07)
[2022-04-13] MEDS: polyethylene glycoL 3350 17 GM POWD.PACK PO SCH (12:07)
--- NOTE | 2022-04-13 12:50 | P.PN ---
Subjective Progress Note Date: 04/13/22 I was asked to evaluate this 71-year-old male patient because of hypoxic/hypercapnic respiratory failure. The patient is known to have coronary artery disease, known history of a severe ischemic myopathy with an ejection fraction of 20%, RV failure and the patient has a AICD in place and the patient also has a stage II diastolic heart failure. He has chronic into fibrillation, COPD, chronic hypoxic and hypercapnic respiratory failure is a former smoker. The patient remains in a hospital because of worsening shortness of breath. He also had increased lower extremity swelling. He had some limited cough and sputum production. During this course of his illness, the patient was given a blood gas initially indicating a pH of 7.32 with a pCO2 of 80 and pO2 of 95. Based on that, the patient was placed on BiPAP as the patient was getting short of breath and he was altered and he was having signs of CO2 narcosis. Currently is on a BiPAP at a pressures of 12/5 cm of water and FiO2 of 35%. The. Blood gases are essentially unchanged. Patient at 7.3 with a pO2 of 82 and there is some limited improvement in the oxygenation which is up to 118. He has developed significant metabolic alkalosis. Serum bicarb is up to 41 and his sodium is at 140. The bronchoscope 6.4 with a hemoglobin of 11.1. The viral screen has not been done. Digital Solution Architect on the case. In terms of treatment, the patient is currently on IV Lasix 40 mg every 12 hours. He is in atrial fibrillation and the patient is on long-term and cognition without liquids 2.5 mg twice a day. He is taking Toprol-XL 100 mg by mouth daily. Remains on aspirin and he is on DuoNeb nebulized treatments to be taken only on an as-need ed basis. 04/08/2022, the patient is feeling well. No signs of any CO2 narcosis. The patient is being treated for CHF and acute on chronic hypoxic and hypercapnic respiratory failure. The patient is on Lasix for now. He is on 4 L of oxygen by nasal cannula with a pulse ox of 98%. Overall fluid balance over the past 24 hours is -2.9 L. The patient's serum bicarbs of 41 with a sodium level of 140 and a potassium level of 4.1. The w diuretics bc 6.4 with a hemoglobin of 11.1. The patient's diuretics and form of Lasix 40 mg IV every 8 hours. He is currently on oxygen at 4 L with a pulse ox of 90%.His feet a lot The patient is seen today 04/09/2022 in follow-up on the selective care unit. He is currently sitting up in bed. Maintained on BiPAP 12/5 and 35% FiO2. White count 4.3. Hemoglobin 10.6. White count 88,000. Sodium 142. Potassium 4.1. Bicarb 39. BUN 47. Creatinine 1.78. Glucose 106. He is continued on oral Lasix and Diamox. Anticoagulated with Eliquis. Remains on bronchodilators. Currently in a -3.3 L balance. Continues to diurese well. The patient is seen today 04/10/2022 in follow-up on the selective care unit. He is currently sitting up in a chair at the bedside. Awake and alert in no acute distress. Maintaining O2 saturations in the 90s on 2 L/m per nasal cannula. Chest x-ray revealed bilateral pleural effusions right greater than left. Cardiomegaly. Some mild congestive heart failure. No significant change. He's been afebrile. Hemodynamically stable. He remains nothing by mouth. He continues to be nourished via tube feeding White count 4.2. Hemoglobin 10.8. Platelets 85,000. Arterial blood gases on 28% revealed a pO2 of 85, pCO2 66, pH 7.37. Sodium 144. Potassium 4.3. Bicarb 41. BUN 44. Creatinine 1.64. Glucose 84. He remains on diuretics, Diamox. Currently in a -2.6 L balance. Anticoagulated with Eliquis. The patient is seen today 04/11/2022 in follow-up on the selective care unit. He is awake and alert. He is confused to time and place. He is sitting up in a chair at the bedside with the assistance of physical therapy. He is currently maintaining O2 saturation in the high 90s on 100% on 3 L nasal cannula. Follow- up chest x-ray reveals similar CHF findings with mild pulmonary vascular congestion. Ongoing moderate right and small left pleural effusions with adjacent atelectasis. White count 5.1. Hemoglobin 11.0. Platelets 100,000. Sodium 146. Potassium 3.9. Bicarbonate 36. BUN 42. Creatinine 1.60. Glucose 125. Currently in a -1.6 L balance. He is continued on Diamox, Lasix. Anti coagulated with Eliquis. EEG reveals mild background slowing, suggestive of mild encephalopathy. No seizure activity. He did have his PEG tube replaced per surgical services on 04/12/2022. Objective - Vital Signs Vital signs: Vital Signs Temp 97.5 F L 04/13/22 11:14 Pulse 77 04/13/22 11:14 Resp 20 04/13/22 11:14 BP 114/75 04/13/22 11:14 Pulse Ox 100 04/13/22 11:14 FiO2 35 04/13/22 00:19 Intake & Output 04/12/22 04/13/22 04/13/22 18:59 06:59 18:59 Intake Total 200 Output Total 1100 700 Balance -900 -700 Intake: IV 200 Output: Urine 1100 700 Other: Voiding Method Indwelling Catheter Indwelling Catheter Indwelling Catheter - Exam GENERAL EXAM: Alert, confused, 71-year-old male, on 3 L/m per nasal cannula, up in a chair at the bedside, breathing is nonlabored. HEAD: Normocephalic/atraumatic. EYES: Normal reaction of pupils, equal size. Conjunctiva pink, sclera white. NOSE: Clear with pink turbinates. THROAT: No erythema or exudates. NECK: No masses, no JVD, no thyroid enlargement, no adenopathy. CHEST: No chest wall deformity. Symmetrical expansion. LUNGS: Equal air entry with basilar crackles, right greater than left. CVS: Regular rate and rhythm, normal S1 and S2, no gallops, no murmurs, no rubs ABDOMEN: PEG tube exit site clean and dry. Soft, nontender. Normal bowel sounds, no guarding or rigidity. EXTREMITIES: No clubbing, no edema, no cyanosis, 2+ pulses and upper and lower extremities. MUSCULOSKELETAL: Muscle strength and tone normal. SPINE: No scoliosis or deformity SKIN: No rashes CENTRAL NERVOUS SYSTEM: Patient is alert and oriented 1. No focal deficits, tone is normal in all 4 extremities. PSYCHIATRIC: Alert and oriented -1. Appropriate affect. Intact judgment and insight. - Labs CBC & Chem 7: 04/13/22 06:43 04/13/22 06:43 Labs: Abnormal Lab Results - Last 24 Hours (Table) 01/03/2304/13/22 04/13/22 Range/Units 20:00 01:52 06:43 RBC 3.64 L (4.30-5.90) m/uL Hgb 11.0 L (13.0-17.5) gm/dL Hct 36.4 L (39.0-53.0) % MCHC 30.2 L (31.0-37.0) g/dL RDW 17.0 H (11.5-15.5) % Plt Count 100 L (150-450) k/uL Sodium (137-145) mmol/L Carbon Dioxide (22-30) mmol/L BUN (9-20) mg/dL Creatinine (0.66-1.25) mg/dL Glucose (74-99) mg/dL POC Glucose (mg/dL) 156 H 187 H (70-110) mg/dL Magnesium (1.6-2.3) mg/dL 04/13/22 04/13/22 04/13/22 Range/Units 06:43 06:50 11:43 RBC (4.30-5.90) m/uL Hgb (13.0-17.5) gm/dL Hct (39.0-53.0) % MCHC (31.0-37.0) g/dL RDW (11.5-15.5) % Plt Count (150-450) k/uL Sodium 146 H (137-145) mmol/L Carbon Dioxide 36 H (22-30) mmol/L BUN 42 H (9-20) mg/dL Creatinine 1.60 H (0.66-1.25) mg/dL Glucose 125 H (74-99) mg/dL POC Glucose (mg/dL) 133 H 131 H (70-110) mg/dL Magnesium 2.4 H (1.6-2.3) mg/dL Assessment and Plan Assessment: Acute on chronic hypoxic/hypercapnic respiratory failure, essentially related to an acute exacerbation of systolic congestive heart failure. The patient has a chest x-ray that shows cardiomegaly and pulmonary edema and small bilateral pleural effusions. ProBNP level is elevated. Most recent echocardiogram that was done on 10/13/2021 showed severe global left ventricular hypokinesis with an ejection fraction of 20% and the patient also had a grade 3 diastolic dysfunction. Remains on a combination of Lasix and diamox. Overall fluid balance is - 1.6 L. 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 PEG tube replaced this admission on 04/12/2022. Hearing disorder Plan: The patient was seen and evaluated Chest x-ray, medications and labs reviewed Remains in a negative balance Continue diuretics, Diamox Titrate down the FiO2 as tolerated Will most likely need subacute rehabilitation We will continue to follow I have personally seen and examined the patient, performed the documentation and the assessment and plan as written. Number of minutes spent on the visit: 10.
[2022-04-13 12:59] VITALS: BMI 21.6
--- NOTE | 2022-04-13 14:53 | P.PN ---
Subjective Progress Note Date: 04/13/22 (delayed charting seen at 0900) Patient is 71-year-old male with a 7 elevated, COPD, systolic congestive heart failure, COPD with chronic hypoxic respiratory failure, CVA with residual dysph agia status post PEG tube, hypertension, and hyperlipidemia who presented to the emergency room with bilateral lower extremity pain and swelling. In the emergency department he underwent extensive evaluation. His vital signs were within normal limits. Initial EKG showed a ventricular paced rhythm at 69 beats. Chest x-ray was consistent with fluid overload. Laboratory analysis was remarkable for troponin 0.046 with a creatinine of 1.51 (at baseline) and platelets of 104. Patient was admitted for acute exacerbation of CHF. He was started on daily IV Lasix. Cardiology was consulted. He initially was started on trazodone had some worsening of his renal function. He had worsening mentat ion and was found to be hypercapnic on 04/06. His Lasix was increased and he was started on BiPAP. Pulmonology was consulted due to persistent need for BiPAP. They recommended continued diuresis and Diamox. Patient continued to struggle with some confusion. It came to light that patient was not using his peg tube at home and was eating. Tube feeds were restarted. He underwent modified barrium sw allow on 04/11/22 which again shows he is not safe to eat. He had continued confusion and Head CT demonstrated old CVA. Neurology was consulted. Patient seen and examined at bedside. He continues to be confused but is alert, he denies and chest pain, SOB General: nontoxic, no distress, appears at stated age Derm: warm, dry, chronic venous stasis changes Head: atraumatic, normocephalic, symmetric Eyes: EOMI, no lid lag, anicteric sclera Mouth: no lip lesion, mucus membranes moist Cardiovascular: S1S2 reg, no murmur, positive posterior tibial pulse bilateral, Lungs: Coarse breath sounds bilateral, no rhonchi, no rales , no accessory muscle use, on BiPAP Abdominal: soft, nontender to palpation, no guarding, no appreciable organomegaly Ext: no gross muscle atrophy, no edema, no contractures Neuro: CN II-XI grossly intact, no focal neuro deficits Psych: lethargic, oriented to self, appropriate affect Assessment/plan: Acute on chronic hypoxic respiratory failure Hypercapnia Acute exacerbation of systolic congestive heart failure, EF 20% Ischemic cardiomyopathy status post AICD Persistent A. fib on eliquis -Cardiology recommendations: IV lasix X 1 today, entresto can be started as outpatient. -On oral Lasix, metoprolol urinary retention - maintain [place] - start flomax - voiding trial in AM Acute metabolic encephalopathy versus dementia - Initially the though was worsening likely due to seroquel given 04/11/22, but confusion continues - hold zoloft, gabapentin has been dose reduced - CT head- consistent with prior infarct - neruo recs appreciated: EEG without epileptiform activity - ammonia is normal Peg tube malfunction - s/p replacement on 04/12/22 KERRIE (resolved) on CKD IV - Baseline Cr 1.6 - will need to be careful with ACEI/ARB/Entreseto with CKD Acute exacerbation of COPD Elevated troponin reflective of chronic kidney disease and not acute coronary syndrome Severe dysphagia - continue tube feedings Chronic conditions: A. fib, hypertension, hyperlipidemia, CKD - D/W Case management per POA has been confused for the last year, they will come in to visit tomorrow and consider SNF on discharge. Active Medications Generic Name Dose Route Start Last Admin Trade Name Freq PRN Reason Stop Dose Admin Acetaminophen 650 mg 04/04/22 18:44 Acetaminophen Tab 325 Mg Tab PO Q6HR PRN Mild Pain or Fever > 100.5 Acetazolamide 500 mg 04/07/22 12:30 04/13/22 08:54 Acetazolamide 250 Mg Tab PO 500 mg BID MO Administration Albuterol/Ipratropium 3 ml 04/07/22 12:19 04/12/22 21:11 Ipratropium-Albuterol 3 Ml Neb INHALATION 3 ml RT-QID PRN Administration Shortness Of Breath Or Wheezing Allopurinol 100 mg 04/05/22 09:00 04/13/22 08:54 Allopurinol 100 Mg Tab PO 100 mg BID MO Administration Apixaban 5 mg 04/05/22 21:00 04/13/22 08:54 Apixaban 5 Mg Tab PO 5 mg BID MO Administration Protocol Aspirin 81 mg 04/08/22 09:00 04/13/22 08:54 Aspirin 81 Mg PO 81 mg DAILY MO Administration Atorvastatin Calcium 80 mg 04/05/22 21:00 04/12/22 20:04 Atorvastatin 80 Mg Tab PO 80 mg HS MO Administration Furosemide 40 mg 04/08/22 16:00 04/13/22 08:54 Furosemide 40 Mg Tab PO 40 mg BID@0900,1600 MO Administration Gabapentin 300 mg 04/13/22 21:00 Gabapentin 300 Mg Cap PO BID MO Insulin Aspart 0 unit 04/11/22 07:30 04/13/22 11:55 Insulin Aspart (Novolog) 100 Unit/Ml Vial SQ Not Given Q6H MO Protocol Melatonin 3 mg 04/11/22 21:00 04/12/22 20:04 Melatonin 3 Mg Tablet PO 3 mg HS MO Administration Metoprolol Succinate 100 mg 04/06/22 13:00 04/13/22 12:07 Metoprolol Succinate (Er) 100 Mg Tab.Er.24h PO 100 mg 1300 MO Administration Naloxone HCl 0.2 mg 04/04/22 18:44 Naloxone 0.4 Mg/Ml 1 Ml Vial IV Q2M PRN Opioid Reversal Pantoprazole Sodium 40 mg 04/08/22 07:30 04/13/22 08:54 Pantoprazole 40 Mg Tablet PO 40 mg AC-BRKFST MO Administration Polyethylene Glycol 17 gm 04/13/22 11:30 04/13/22 12:07 Polyethylene Glycol 3350 17 Gm Powd.Pack PO 17 gm DAILY MO Administration Tamsulosin HCl 0.4 mg 04/13/22 09:30 04/13/22 12:07 Tamsulosin 0.4 Mg Cap.Er.24h PO 0.4 mg PC-BRKFST MO Administration Objective - Vital Signs Vital signs: Vital Signs Temp 97.5 F L 04/13/22 11:14 Pulse 77 04/13/22 11:14 Resp 20 04/13/22 11:14 BP 114/75 04/13/22 11:14 Pulse Ox 100 04/13/22 11:14 FiO2 35 04/13/22 00:19 Intake & Output 04/12/22 04/13/22 04/13/22 18:59 06:59 18:59 Intake Total 200 Output Total 1100 700 Balance -900 -700 Weight 76.5 kg Intake: IV 200 Output: Urine 1100 700 Other: Voiding Method Indwelling Catheter Indwelling Catheter Indwelling Catheter - Labs CBC & Chem 7: 04/13/22 06:43 04/13/22 06:43 Labs: Abnormal Lab Results - Last 24 Hours (Table) 04/12/22 04/13/22 04/13/22 Range/Units 20:00 01:52 06:43 RBC 3.64 L (4.30-5.90) m/uL Hgb 11.0 L (13.0-17.5) gm/dL Hct 36.4 L (39.0-53.0) % MCHC 30.2 L (31.0-37.0) g/dL RDW 17.0 H (11.5-15.5) % Plt Count 100 L (150-450) k/uL Sodium (137-145) mmol/L Carbon Dioxide (22-30) mmol/L BUN (9-20) mg/dL Creatinine (0.66-1.25) mg/dL Glucose (74-99) mg/dL POC Glucose (mg/dL) 156 H 187 H (70-110) mg/dL Magnesium (1.6-2.3) mg/dL 04/13/22 04/13/22 04/13/22 Range/Units 06:43 06:50 11:43 RBC (4.30-5.90) m/uL Hgb (13.0-17.5) gm/dL Hct (39.0-53.0) % MCHC (31.0-37.0) g/dL RDW (11.5-15.5) % Plt Count (150-450) k/uL Sodium 146 H (137-145) mmol/L Carbon Dioxide 36 H (22-30) mmol/L BUN 42 H (9-20) mg/dL Creatinine 1.60 H (0.66-1.25) mg/dL Glucose 125 H (74-99) mg/dL POC Glucose (mg/dL) 133 H 131 H (70-110) mg/dL Magnesium 2.4 H (1.6-2.3) mg/dL
--- NOTE | 2022-04-13 15:36 | P.PN ---
Subjective Progress Note Date: 04/13/22 CHIEF COMPLAINT: Malfunctioning peg Tube HISTORY OF PRESENT ILLNESS: Patient is status post EGD with PEG tube placement. Patient denies any abdominal pain. Denies any nausea or vomiting. He is tolerating tube feedings. Tube feeds are currently at 55 mL per hour PHYSICAL EXAM: VITAL SIGNS: Reviewed. GENERAL: Well-developed in no acute distress. HEENT: No sclera icterus. Extraocular movements grossly intact. Moist buccal mucosa. Head is atraumatic, normocephalic. ABDOMEN: Soft. Nondistended. Nontender. PEG tube site clean dry and intact NEUROLOGIC: Alert and oriented. Cranial nerves II through XII grossly intact. ASSESSMENT: 1. Malfunctioning PEG tube 2. Moderate protein calorie malnutrition PLAN: -Continue tube feedings -Continue supportive care Physician Plant Machinist note has been reviewed by physician. Signing provider agrees with the documented findings, assessment, and plan of care. I have personally seen and examined the patient, reviewed the KEY PERSON /PAs history, exam and MDM and agree with the assessment and plan as written. Based on total visit time, I have performed more than 50% of the visit. As above: Patient doing well. PEG tube functioning. We'll sign off. Call if needed. Objective - Vital Signs Vital signs: Vital Signs Temp 97.5 F L 04/13/22 11:14 Pulse 77 04/13/22 11:14 Resp 20 04/13/22 11:14 BP 114/75 04/13/22 11:14 Pulse Ox 100 04/13/22 11:14 FiO2 35 04/13/22 00:19 Intake & Output 04/12/22 04/13/22 04/13/22 18:59 06:59 18:59 Intake Total 200 Output Total 2865 381 1588 Balance -900 -700 -1400 Weight 76.5 kg Intake: IV 200 Output: Urine 5777 746 1292 Uretheral (Hardin) 1400 Other: Voiding Method Indwelling Catheter Indwelling Catheter Indwelling Catheter - Labs CBC & Chem 7: 04/13/22 06:43 04/13/22 06:43 Labs: Abnormal Lab Results - Last 24 Hours (Table) 04/12/22 04/13/22 04/13/22 Range/Units 20:00 01:52 06:43 RBC 3.64 L (4.30-5.90) m/uL Hgb 11.0 L (13.0-17.5) gm/dL Hct 36.4 L (39.0-53.0) % MCHC 30.2 L (31.0-37.0) g/dL RDW 17.0 H (11.5-15.5) % Plt Count 100 L (150-450) k/uL Sodium (137-145) mmol/L Carbon Dioxide (22-30) mmol/L BUN (9-20) mg/dL Creatinine (0.66-1.25) mg/dL Glucose (74-99) mg/dL POC Glucose (mg/dL) 156 H 187 H (70-110) mg/dL Magnesium (1.6-2.3) mg/dL 04/13/22 04/13/22 04/13/22 Range/Units 06:43 06:50 11:43 RBC (4.30-5.90) m/uL Hgb (13.0-17.5) gm/dL Hct (39.0-53.0) % MCHC (31.0-37.0) g/dL RDW (11.5-15.5) % Plt Count (150-450) k/uL Sodium 146 H (137-145) mmol/L Carbon Dioxide 36 H (22-30) mmol/L BUN 42 H (9-20) mg/dL Creatinine 1.60 H (0.66-1.25) mg/dL Glucose 125 H (74-99) mg/dL POC Glucose (mg/dL) 133 H 131 H (70-110) mg/dL Magnesium 2.4 H (1.6-2.3) mg/dL
--- NOTE | 2022-04-13 17:01 | P.PN ---
Subjective Progress Note Date: 04/13/22 Patient was seen for a follow-up. Patient is slightly hallucinating. Denies headache. Patient seeing random statements as: "I do get upset, I don't like getting that". "Stop looking backward". Objective - Vital Signs Vital signs: Vital Signs Temp 97.6 F 04/13/22 16:29 Pulse 76 04/13/22 16:29 Resp 20 04/13/22 16:29 BP 114/70 04/13/22 16:29 Pulse Ox 96 04/13/22 16:29 FiO2 35 04/13/22 00:19 Intake & Output 04/12/22 04/13/22 04/13/22 18:59 06:59 18:59 Intake Total 200 Output Total 1954 842 4376 Balance -900 -700 -1400 Weight 76.5 kg Intake: IV 200 Output: Urine 0973 950 8260 Uretheral (Hardin) 1400 Other: Voiding Method Indwelling Catheter Indwelling Catheter Indwelling Catheter - Exam Patient has fluent aphasia. Cannot name any object. Patient states gibberish language when trying to name. Patient has impaired comprehension for directions. He cannot point to the door or the window. Cannot name eyeglasses, pen, can repeat some sentences but not all. Patient was able to cooperate fully with visual field testing. He has normal visual tse, with no neglect on double simultaneous stimulation. He has slight facial weakness on the right. Muscle strength is completely normal in the arms and legs, distally and proximally. Patient has bruises, ecchymosis. Some skin changes and mild peripheral edema. - Labs CBC & Chem 7: 04/13/22 06:43 04/13/22 06:43 Labs: Abnormal Lab Results - Last 24 Hours (Table) 04/12/22 04/13/22 04/13/22 Range/Units 20:00 01:52 06:43 RBC 3.64 L (4.30-5.90) m/uL Hgb 11.0 L (13.0-17.5) gm/dL Hct 36.4 L (39.0-53.0) % MCHC 30.2 L (31.0-37.0) g/dL RDW 17.0 H (11.5-15.5) % Plt Count 100 L (150-450) k/uL Sodium (137-145) mmol/L Carbon Dioxide (22-30) mmol/L BUN (9-20) mg/dL Creatinine (0.66-1.25) mg/dL Glucose (74-99) mg/dL POC Glucose (mg/dL) 156 H 187 H (70-110) mg/dL Magnesium (1.6-2.3) mg/dL 04/13/22 04/13/22 04/13/22 Range/Units 06:43 06:50 11:43 RBC (4.30-5.90) m/uL Hgb (13.0-17.5) gm/dL Hct (39.0-53.0) % MCHC (31.0-37.0) g/dL RDW (11.5-15.5) % Plt Count (150-450) k/uL Sodium 146 H (137-145) mmol/L Carbon Dioxide 36 H (22-30) mmol/L BUN 42 H (9-20) mg/dL Creatinine 1.60 H (0.66-1.25) mg/dL Glucose 125 H (74-99) mg/dL POC Glucose (mg/dL) 133 H 131 H (70-110) mg/dL Magnesium 2.4 H (1.6-2.3) mg/dL Assessment and Plan Assessment: * Altered mental status, possible toxic metabolic encephalopathy. Reasons multifactorial as mentioned below. * History of CVA, with some residual expressive aphasia * Dysphagia, history of PEG placement, needs revision. * Atrial fibrillation on long-term anticoagulation with Eliquis * Chronic renal insufficiency, mild to moderate * Acute on chronic hypoxic/hypercapnic respiratory failure * COPD * Congestive heart failure due to ischemic cardiomyopathy with EF <20%. * Hypercapnia * Tobacco use * Previous history of alcoholism. * History of AICD placement. * Hypertension * Coronary artery disease Plan: * CT had revealed old left parietal lobe infarct with old sean-infarct ischemic changes. No acute process. I personally reviewed CT head, agree with the findings. * Treatment of medical conditions as per IM and other specialties. * Patient is status post revision of PEG tube. * Patient was taking high dose gabapentin 800 mg 3 times a day prior to arrival. While in the hospital, he was receiving Neurontin 400 mg 3 times a day, which was discontinued on 04/09/2022. The patient could potentially be withdrawing from Neurontin. We will resume Neurontin at a lower dose 300 mg 3 times a day. IM decreased dose to 300 mg twice a day. * Telemetry monitoring showing V-paced rhythm with underlying sinus rhythm. Bundle-branch block. Couplets and PVCs. * Continue Eliquis and aspirin. * EEG was performed, which was mildly abnormal due to background slowing suggestive of encephalopathy. No epileptiform activity was seen. * Neurologically, no other workup indicated.
[2022-04-13] MEDS: MELATONIN 3 MG TABLET PO SCH (19:58)
[2022-04-13] MEDS: ATORVASTATIN 80 MG TAB PO SCH (19:58)
[2022-04-13 20:00] LABS: Glucose,Whole Blood 144 mg/dL (70-110)
[2022-04-14] MEDS: INSULIN ASPART (NovoLOG) 100 UNIT/ML VIAL SQ SCH ×4 (01:49→19:43)
[2022-04-14] MEDS: acetaZOLAMIDE 250 MG TAB PO SCH ×2 (09:29→19:42)
[2022-04-14] MEDS: TAMSULOSIN 0.4 MG CAP.ER.24H PO SCH (09:29)
[2022-04-14] MEDS: GABAPENTIN 300 MG CAP PO SCH ×2 (09:29→19:42)
[2022-04-14] MEDS: allopurinoL 100 MG TAB PO SCH ×2 (09:29→19:41)
[2022-04-14] MEDS: APIXABAN 5 MG TAB PO SCH ×2 (09:29→19:41)
[2022-04-14] MEDS: FUROSEMIDE 40 MG TAB PO SCH ×2 (09:29→15:55)
[2022-04-14] MEDS: PANTOPRAZOLE 40 MG TABLET PO SCH (09:29)
[2022-04-14] MEDS: ASPIRIN 81 MG PO SCH (09:29)
[2022-04-14 10:45] LABS: Anisocytosis Slight; HCT 40.1 % (39.0-53.0); HGB 11.5 gm/dL (13.0-17.5); Hypochromasia Marked; MCH 29.3 pg (25.0-35.0); MCHC 28.6 g/dL (31.0-37.0); MCV 102.4 fL (80.0-100.0); Macrocytosis Moderate; Mean Platelet Volume 11.2; Platelet Count 114 k/uL (150-450); RBC 3.92 m/uL (4.30-5.90); WBC 5.7 k/uL (3.8-10.6)
[2022-04-14 11:00] LABS: Magnesium 2.4 mg/dL (1.6-2.3); Potassium 4.2 mmol/L (3.5-5.1)
[2022-04-14 12:08] LABS: Glucose,Whole Blood 145 mg/dL (70-110)
[2022-04-14] MEDS: IPRATROPIUM-ALBUTEROL 3 ML NEB INHALATION PRN ×2 (12:31→15:17)
--- NOTE | 2022-04-14 13:03 | P.PN ---
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 In the emergency department he underwent extensive evaluation. His vital signs were within normal limits. Initial EKG showed a ventricular paced rhythm at 69 beats. Chest x-ray was consistent with fluid overload. Laboratory analysis was remarkable for troponin 0.046 with a creatinine of 1.51 (at baseline) and platelets of 104. Patient was admitted for acute exacerbation of CHF. He was started on daily IV Lasix. Cardiology was consulted. He initially was started on trazodone had some worsening of his renal function. He had worsening mentat ion and was found to be hypercapnic on 04/06. His Lasix was increased and he was started on BiPAP. Pulmonology was consulted due to persistent need for BiPAP. They recommended continued diuresis and Diamox. Patient continued to struggle with some confusion. It came to light that patient was not using his peg tube at home and was eating. Tube feeds were restarted. He underwent modified barrium sw allow on 04/11/22 which again shows he is not safe to eat. He had continued confusion and Head CT demonstrated old CVA. Neurology was consulted. EEG without seizure like activity. Patient seen and examined at bedside. He has no complaints. He is on Bipap. No chest pain, no shortness of breath. General: nontoxic, no distress, appears at stated age Derm: warm, dry, chronic venous stasis changes Head: atraumatic, normocephalic, symmetric Eyes: EOMI, no lid lag, anicteric sclera Mouth: no lip lesion, mucus membranes moist Cardiovascular: S1S2 reg, no murmur, positive posterior tibial pulse bilateral, Lungs: Coarse breath sounds bilateral, no rhonchi, no rales , no accessory muscle use, on BiPAP Abdominal: soft, nontender to palpation, no guarding, no appreciable organomegaly Ext: no gross muscle atrophy, no edema, no contractures Neuro: CN II-XI grossly intact, no focal neuro deficits Psych: lethargic, oriented to self, appropriate affect Assessment/plan: Acute on chronic hypoxic respiratory failure Hypercapnia Acute exacerbation of systolic congestive heart failure, EF 20% Ischemic cardiomyopathy status post AICD Persistent A. fib on eliquis -Cardiology recommendations:entresto can be started as outpatient. -On oral Lasix, metoprolol urinary retention - discontinue [place] - flomax today Acute metabolic encephalopathy versus dementia - Initially the though was worsening likely due to seroquel given 04/11/22, but confusion continues - hold zoloft, gabapentin has been dose reduced - CT head- consistent with prior infarct - neruo recs appreciated: EEG without epileptiform activity - ammonia is normal Peg tube malfunction - s/p replacement on 04/12/22 KERRIE (resolved) on CKD IV - Baseline Cr 1.6 - will need to be careful with ACEI/ARB/Entreseto with CKD Acute exacerbation of COPD Elevated troponin reflective of chronic kidney disease and not acute coronary syndrome Severe dysphagia - continue tube feedings Chronic conditions: A. fib, hypertension, hyperlipidemia, CKD - SNF on discharge, hopefully Saturday Active Medications Generic Name Dose Route Start Last Admin Trade Name Nachoq PRN Reason Stop Dose Admin Acetaminophen 650 mg 04/04/22 18:44 Acetaminophen Tab 325 Mg Tab PO Q6HR PRN Mild Pain or Fever > 100.5 Acetazolamide 500 mg 04/07/22 12:30 04/14/22 09:29 Acetazolamide 250 Mg Tab PO 500 mg BID MO Administration Albuterol/Ipratropium 3 ml 04/07/22 12:19 04/14/22 12:31 Ipratropium-Albuterol 3 Ml Neb INHALATION 3 ml RT-QID PRN Administration Shortness Of Breath Or Wheezing Allopurinol 100 mg 04/05/22 09:00 04/14/22 09:29 Allopurinol 100 Mg Tab PO 100 mg BID MO Administration Apixaban 5 mg 04/05/22 21:00 04/14/22 09:29 Apixaban 5 Mg Tab PO 5 mg BID MO Administration Protocol Aspirin 81 mg 04/08/22 09:00 04/14/22 09:29 Aspirin 81 Mg PO 81 mg DAILY MO Administration Atorvastatin Calcium 80 mg 04/05/22 21:00 04/13/22 19:58 Atorvastatin 80 Mg Tab PO 80 mg HS MO Administration Furosemide 40 mg 04/08/22 16:00 04/14/22 09:29 Furosemide 40 Mg Tab PO 40 mg BID@0900,1600 MO Administration Gabapentin 300 mg 04/13/22 21:00 04/14/22 09:29 Gabapentin 300 Mg Cap PO 300 mg BID MO Administration Insulin Aspart 0 unit 04/11/22 07:30 04/14/22 12:36 Insulin Aspart (Novolog) 100 Unit/Ml Vial SQ Not Given Q6H MO Protocol Melatonin 3 mg 04/11/22 21:00 04/13/22 19:58 Melatonin 3 Mg Tablet PO 3 mg HS MO Administration Metoprolol Tartrate 50 mg 04/14/22 21:00 Metoprolol Tartrate 50 Mg Tab PO BID MO Naloxone HCl 0.2 mg 04/04/22 18:44 Naloxone 0.4 Mg/Ml 1 Ml Vial IV Q2M PRN Opioid Reversal Pantoprazole Sodium 40 mg 04/08/22 07:30 04/14/22 09:29 Pantoprazole 40 Mg Tablet PO 40 mg AC-BRKFST MO Administration Polyethylene Glycol 17 gm 04/13/22 11:30 04/13/22 12:07 Polyethylene Glycol 3350 17 Gm Powd.Pack PO 17 gm DAILY MO Administration Tamsulosin HCl 0.4 mg 04/13/22 09:30 04/14/22 09:29 Tamsulosin 0.4 Mg Cap.Er.24h PO 0.4 mg PC-BRKFST MO Administration Objective - Vital Signs Vital signs: Vital Signs Temp 98.1 F 04/14/22 08:00 Pulse 72 04/14/22 12:39 Resp 18 04/14/22 08:00 BP 116/62 04/14/22 08:00 Pulse Ox 99 04/14/22 08:00 FiO2 35 04/14/22 07:36 Intake & Output 04/13/22 04/14/22 04/14/22 18:59 06:59 18:59 Intake Total 700 0 Output Total 1400 700 Balance -700 -700 Weight 76.5 kg Intake: Oral 0 Tube Feeding 700 Output: Urine 1400 700 Uretheral ([place]) 1400 Other: Voiding Method Indwelling Catheter Indwelling Catheter # Bowel Movements 1 - Labs CBC & Chem 7: 04/14/22 10:31 04/14/22 10:31 Labs: Abnormal Lab Results - Last 24 Hours (Table) 04/13/22 04/14/22 04/14/22 Range/Units 19:58 10:31 10:31 RBC 3.92 L (4.30-5.90) m/uL Hgb 11.5 L (13.0-17.5) gm/dL MCV 102.4 H (80.0-100.0) fL MCHC 28.6 L (31.0-37.0) g/dL RDW 17.0 H (11.5-15.5) % Plt Count 114 L (150-450) k/uL Sodium 146 H (137-145) mmol/L Carbon Dioxide 39 H (22-30) mmol/L BUN 43 H (9-20) mg/dL Creatinine 1.54 H (0.66-1.25) mg/dL Glucose 118 H (74-99) mg/dL POC Glucose (mg/dL) 144 H (70-110) mg/dL Magnesium 2.4 H (1.6-2.3) mg/dL 04/14/22 Range/Units 12:07 RBC (4.30-5.90) m/uL Hgb (13.0-17.5) gm/dL MCV (80.0-100.0) fL MCHC (31.0-37.0) g/dL RDW (11.5-15.5) % Plt Count (150-450) k/uL Sodium (137-145) mmol/L Carbon Dioxide (22-30) mmol/L BUN (9-20) mg/dL Creatinine (0.66-1.25) mg/dL Glucose (74-99) mg/dL POC Glucose (mg/dL) 145 H (70-110) mg/dL Magnesium (1.6-2.3) mg/dL
--- NOTE | 2022-04-14 13:14 | P.PN ---
Subjective Progress Note Date: 04/14/22 Patient seen today resting comfortably in bed in no signs of acute distress. He denies chest pain or chest pressure. He is on 3 L supplemental oxygen and BiPAP as needed. He denies increased shortness of breath at this time. Patient had PEG tube replaced 04/12/2022. Meds are being given through his PEG tube. His Eliquis has been restarted. Patient has been transitioned to Lopressor 50 mg twice a day. Due to Toprol been unable to be crushed. Patient has a paced on the monitor. His entresto was being held due to acute kidney injury. Will restart entresto on outpatient basis. Objective - Vital Signs Vital signs: Vital Signs Temp 98.1 F 04/14/22 08:00 Pulse 72 04/14/22 12:39 Resp 18 04/14/22 08:00 BP 116/62 04/14/22 08:00 Pulse Ox 99 04/14/22 08:00 FiO2 35 04/14/22 07:36 Intake & Output 04/13/22 04/14/22 04/14/22 18:59 06:59 18:59 Intake Total 700 0 Output Total 1400 700 Balance -700 -700 Weight 76.5 kg Intake: Oral 0 Tube Feeding 700 Output: Urine 1400 700 Uretheral ([place]) 1400 Other: Voiding Method Indwelling Catheter Indwelling Catheter # Bowel Movements 1 - Exam VITAL SIGNS: Reviewed. GENERAL: Well-developed in no acute distress. NECK: Supple. No JVD or thyromegaly LUNGS: Respirations even and unlabored. Lungs with left-sided crackles and severely diminished breath sounds on the right side HEART: Regular rate and rhythm. S1 and S2 heard. EXTREMITIES: Normal range of motion. No clubbing or cyanosis. Peripheral pulses intact. Trace lower extremity edema - Labs CBC & Chem 7: 04/14/22 10:31 04/14/22 10:31 Labs: Abnormal Lab Results - Last 24 Hours (Table) 04/13/22 04/14/22 04/14/22 Range/Units 19:58 10:31 10:31 RBC 3.92 L (4.30-5.90) m/uL Hgb 11.5 L (13.0-17.5) gm/dL MCV 102.4 H (80.0-100.0) fL MCHC 28.6 L (31.0-37.0) g/dL RDW 17.0 H (11.5-15.5) % Plt Count 114 L (150-450) k/uL Sodium 146 H (137-145) mmol/L Carbon Dioxide 39 H (22-30) mmol/L BUN 43 H (9-20) mg/dL Creatinine 1.54 H (0.66-1.25) mg/dL Glucose 118 H (74-99) mg/dL POC Glucose (mg/dL) 144 H (70-110) mg/dL Magnesium 2.4 H (1.6-2.3) mg/dL 04/14/22 Range/Units 12:07 RBC (4.30-5.90) m/uL Hgb (13.0-17.5) gm/dL MCV (80.0-100.0) fL MCHC (31.0-37.0) g/dL RDW (11.5-15.5) % Plt Count (150-450) k/uL Sodium (137-145) mmol/L Carbon Dioxide (22-30) mmol/L BUN (9-20) mg/dL Creatinine (0.66-1.25) mg/dL Glucose (74-99) mg/dL POC Glucose (mg/dL) 145 H (70-110) mg/dL Magnesium (1.6-2.3) mg/dL Assessment and Plan Assessment: Acute on chronic congestive heart failure with reduced EF, EF 20% Elevated troponin secondary to heart failure and kidney disease Persistent atrial fibrillation, on anticoagulation Ischemic cardiomyopathy, status post AICD Hypertension Acute kidney injury, worsened with IV diuresis Plan: Continue current cardiac medications Recommend Entresto. This may be performed on an outpatient basis as patient has continued KERRIE Further recommendations pending patient course Patient to follow up outpatient with Dr. Curiel Nurse practitioner note has been reviewed by physician. Signing provider agrees with the documented findings, assessment, and plan of care.
[2022-04-14] MEDS: polyethylene glycoL 3350 17 GM POWD.PACK PO SCH (13:18)
[2022-04-14] MEDS: MELATONIN 3 MG TABLET PO SCH (19:41)
[2022-04-14] MEDS: ATORVASTATIN 80 MG TAB PO SCH (19:42)
[2022-04-14] MEDS: METOPROLOL TARTRATE 50 MG TAB PO SCH (19:42)
[2022-04-14 19:44] LABS: Glucose,Whole Blood 122 mg/dL (70-110)
[2022-04-15] MEDS: INSULIN ASPART (NovoLOG) 100 UNIT/ML VIAL SQ SCH ×4 (03:03→18:38)
[2022-04-15 07:03] LABS: Glucose,Whole Blood 126 mg/dL (70-110)
[2022-04-15 08:21] LABS: Calcium 9.1 mg/dL (8.4-10.2)
[2022-04-15] MEDS: polyethylene glycoL 3350 17 GM POWD.PACK PO SCH (08:30)
[2022-04-15] MEDS: METOPROLOL TARTRATE 50 MG TAB PO SCH ×2 (08:40→22:15)
[2022-04-15] MEDS: TAMSULOSIN 0.4 MG CAP.ER.24H PO SCH (08:40)
[2022-04-15] MEDS: acetaZOLAMIDE 250 MG TAB PO SCH ×2 (08:40→22:16)
[2022-04-15] MEDS: ASPIRIN 81 MG PO SCH (08:40)
[2022-04-15] MEDS: allopurinoL 100 MG TAB PO SCH ×2 (08:40→22:15)
[2022-04-15] MEDS: APIXABAN 5 MG TAB PO SCH ×2 (08:40→22:15)
[2022-04-15] MEDS: PANTOPRAZOLE 40 MG TABLET PO SCH (08:40)
[2022-04-15] MEDS: FUROSEMIDE 40 MG TAB PO SCH (08:40)
[2022-04-15] MEDS: GABAPENTIN 300 MG CAP PO SCH ×2 (08:40→22:16)
--- NOTE | 2022-04-15 09:43 | P.PN ---
Subjective Progress Note Date: 04/15/22 Patient is 71-year-old male with a 7 elevated, COPD, systolic congestive heart failure, COPD with chronic hypoxic respiratory failure, CVA with residual dysphagia status post PEG tube, hypertension, and hyperlipidemia who presented to the emergency room with bilateral lower extremity pain and swelling. In the emergency department he underwent extensive evaluation. His vital signs were within normal limits. Initial EKG showed a ventricular paced rhythm at 69 beats. Chest x-ray was consistent with fluid overload. Laboratory analysis was remarkable for troponin 0.046 with a creatinine of 1.51 (at baseline) and platelets of 104. Patient was admitted for acute exacerbation of CHF. He was started on daily IV Lasix. Cardiology was consulted. He initially was started on trazodone had some worsening of his renal function. He had worsening mentation and was found to be hypercapnic on 04/06. His Lasix was increased and he was started on BiPAP. Pulmonology was consulted due to persistent need for BiPAP. They recommended continued diuresis and Diamox. Patient continued to st ruggle with some confusion. It came to light that patient was not using his peg tube at home and was eating. Tube feeds were restarted. He underwent modified barrium swallow on 04/11/22 which again shows he is not safe to eat. He had continued confusion and Head CT demonstrated old CVA. Neurology was consulted. EEG without seizure like activity. Patient seen and examined at bedside. He states that he is feeling great other than being thirsty. He denies chest pain, SOB, ORELLANA. General: nontoxic, no distress, appears at stated age Derm: warm, dry, chronic venous stasis changes Head: atraumatic, normocephalic, symmetric Eyes: EOMI, no lid lag, anicteric sclera Mouth: no lip lesion, mucus membranes moist Cardiovascular: S1S2 reg, no murmur, positive posterior tibial pulse bilateral, Lungs: Coarse breath sounds bilateral, no rhonchi, no rales , no accessory muscle use, on BiPAP Abdominal: soft, nontender to palpation, no guarding, no appreciable organomegaly Ext: no gross muscle atrophy, no edema, no contractures Neuro: CN II-XI grossly intact, no focal neuro deficits Psych: Awake, oriented to self, appropriate affect Assessment/plan: Acute on chronic hypoxic respiratory failure Hypercapnia, resolved Acute exacerbation of systolic congestive heart failure, EF 20% Ischemic cardiomyopathy status post AICD Persistent A. fib on eliquis -Cardiology recommendations:entresto can be started as outpatient. -On oral Lasix, metoprolol Hypernatremia - decreased Diamox to 250 mg BID - Free water deficit is 1.1L, will replace just less than 1/2 in 24 hours by increasing free water flushes to 75 cc q 4h. - repeat at 1700 and in AM urinary retention - flomax - [place] discontinued on 04/14/22 Acute metabolic encephalopathy versus dementia - Initially the though was worsening likely due to seroquel given 04/11/22, but confusion continues - continue to hold zoloft, gabapentin has been dose reduced - CT head- consistent with prior infarct - neruo recs appreciated: EEG without epileptiform activity - ammonia is normal Peg tube malfunction Severe dysphagia - s/p replacement on 04/12/22 - continue tube feedings KERRIE (resolved) on CKD IV - Baseline Cr 1.6 - will need to be careful with ACEI/ARB/Entreseto with CKD Acute exacerbation of COPD Elevated troponin reflective of chronic kidney disease and not acute coronary syndrome Chronic conditions: A. fib, hypertension, hyperlipidemia, CKD - SNF on discharge, hopefully Saturday Active Medications Generic Name Dose Route Start Last Admin Trade Name Freq PRN Reason Stop Dose Admin Acetaminophen 650 mg 04/04/22 18:44 Acetaminophen Tab 325 Mg Tab PO Q6HR PRN Mild Pain or Fever > 100.5 Acetazolamide 250 mg 04/15/22 21:00 Acetazolamide 250 Mg Tab PO BID MO Albuterol/Ipratropium 3 ml 04/07/22 12:19 04/14/22 15:17 Ipratropium-Albuterol 3 Ml Neb INHALATION 3 ml RT-QID PRN Administration Shortness Of Breath Or Wheezing Allopurinol 100 mg 04/05/22 09:00 04/15/22 08:40 Allopurinol 100 Mg Tab PO 100 mg BID MO Administration Apixaban 5 mg 04/05/22 21:00 04/15/22 08:40 Apixaban 5 Mg Tab PO 5 mg BID MO Administration Protocol Aspirin 81 mg 04/08/22 09:00 04/15/22 08:40 Aspirin 81 Mg PO 81 mg DAILY MO Administration Atorvastatin Calcium 80 mg 04/05/22 21:00 04/14/22 19:42 Atorvastatin 80 Mg Tab PO 80 mg HS MO Administration Furosemide 40 mg 04/08/22 16:00 04/15/22 08:40 Furosemide 40 Mg Tab PO 40 mg BID@0900,1600 MO Administration Gabapentin 300 mg 04/13/22 21:00 04/15/22 08:40 Gabapentin 300 Mg Cap PO 300 mg BID MO Administration Insulin Aspart 0 unit 04/11/22 07:30 04/15/22 07:31 Insulin Aspart (Novolog) 100 Unit/Ml Vial SQ Not Given Q6H [facility] Protocol Melatonin 3 mg 04/11/22 21:00 04/14/22 19:41 Melatonin 3 Mg Tablet PO 3 mg HS MO Administration Metoprolol Tartrate 50 mg 04/14/22 21:00 04/15/22 08:40 Metoprolol Tartrate 50 Mg Tab PO 50 mg BID MO Administration Naloxone HCl 0.2 mg 04/04/22 18:44 Naloxone 0.4 Mg/Ml 1 Ml Vial IV Q2M PRN Opioid Reversal Pantoprazole Sodium 40 mg 04/08/22 07:30 04/15/22 08:40 Pantoprazole 40 Mg Tablet PO 40 mg AC-BRKFST MO Administration Polyethylene Glycol 17 gm 04/13/22 11:30 04/15/22 08:30 Polyethylene Glycol 3350 17 Gm Powd.Pack PO Not Given DAILY [facility] Tamsulosin HCl 0.4 mg 04/13/22 09:30 04/15/22 08:40 Tamsulosin 0.4 Mg Cap.Er.24h PO 0.4 mg PC-BRKFST MO Administration Objective - Vital Signs Vital signs: Vital Signs Temp 97.9 F 04/15/22 08:00 Pulse 80 04/15/22 08:00 Resp 18 04/15/22 08:00 BP 113/66 04/15/22 08:00 Pulse Ox 92 L 04/15/22 08:00 FiO2 35 04/15/22 07:56 Intake & Output 04/14/22 04/15/22 04/15/22 18:59 06:59 18:59 Intake Total 240 240 60 Balance 240 240 60 Intake: Tube Feeding 240 240 60 Other: Voiding Method Toilet Toilet Toilet Urinal Urinal Urinal - Labs CBC & Chem 7: 04/14/22 10:31 04/15/22 07:27 Labs: Abnormal Lab Results - Last 24 Hours (Table) 04/14/22 04/14/22 04/14/22 Range/Units 10:31 10:31 12:07 RBC 3.92 L (4.30-5.90) m/uL Hgb 11.5 L (13.0-17.5) gm/dL MCV 102.4 H (80.0-100.0) fL MCHC 28.6 L (31.0-37.0) g/dL RDW 17.0 H (11.5-15.5) % Plt Count 114 L (150-450) k/uL Sodium 146 H (137-145) mmol/L Carbon Dioxide 39 H (22-30) mmol/L BUN 43 H (9-20) mg/dL Creatinine 1.54 H (0.66-1.25) mg/dL Glucose 118 H (74-99) mg/dL POC Glucose (mg/dL) 145 H (70-110) mg/dL Magnesium 2.4 H (1.6-2.3) mg/dL 04/14/22 04/15/22 04/15/22 Range/Units 19:42 07:02 07:27 RBC (4.30-5.90) m/uL Hgb (13.0-17.5) gm/dL MCV (80.0-100.0) fL MCHC (31.0-37.0) g/dL RDW (11.5-15.5) % Plt Count (150-450) k/uL Sodium 149 H (137-145) mmol/L Carbon Dioxide 37 H (22-30) mmol/L BUN 44 H (9-20) mg/dL Creatinine 1.41 H (0.66-1.25) mg/dL Glucose 129 H (74-99) mg/dL POC Glucose (mg/dL) 122 H 126 H (70-110) mg/dL Magnesium (1.6-2.3) mg/dL
--- NOTE | 2022-04-15 10:03 | P.PN ---
Subjective Progress Note Date: 04/14/22 Patient was seen for a follow-up. Patient is sitting comfortably in the recliner. Offers no complaints. Denies headache. Patient continues to have expressive aphasia. Objective - Vital Signs Vital signs: Vital Signs Temp 97.9 F 04/15/22 08:00 Pulse 80 04/15/22 08:00 Resp 18 04/15/22 08:00 BP 113/66 04/15/22 08:00 Pulse Ox 92 L 04/15/22 08:00 FiO2 35 04/15/22 07:56 Intake & Output 04/14/22 04/15/22 04/15/22 18:59 06:59 18:59 Intake Total 240 240 60 Balance 240 240 60 Intake: Tube Feeding 240 240 60 Other: Voiding Method Toilet Toilet Toilet Urinal Urinal Urinal - Exam Patient has fluent aphasia. Cannot name any object. Patient states gibberish language when trying to name. Patient has impaired comprehension for directions. He cannot point to the door or the window. Cannot name eyeglasses, pen, can repeat some sentences but not all. Patient was able to cooperate fully with visual field testing. He has normal visual tse, with no neglect on double simultaneous stimulation. He has slight facial weakness on the right. Muscle strength is completely normal in the arms and legs, distally and proximally. Patient has bruises, ecchymosis. Some skin changes and mild peripheral edema. - Labs CBC & Chem 7: 04/14/22 10:31 04/15/22 07:27 Labs: Abnormal Lab Results - Last 24 Hours (Table) 04/14/22 04/14/22 04/14/22 Range/Units 10:31 10:31 12:07 RBC 3.92 L (4.30-5.90) m/uL Hgb 11.5 L (13.0-17.5) gm/dL MCV 102.4 H (80.0-100.0) fL MCHC 28.6 L (31.0-37.0) g/dL RDW 17.0 H (11.5-15.5) % Plt Count 114 L (150-450) k/uL Sodium 146 H (137-145) mmol/L Carbon Dioxide 39 H (22-30) mmol/L BUN 43 H (9-20) mg/dL Creatinine 1.54 H (0.66-1.25) mg/dL Glucose 118 H (74-99) mg/dL POC Glucose (mg/dL) 145 H (70-110) mg/dL Magnesium 2.4 H (1.6-2.3) mg/dL 04/14/22 04/15/22 04/15/22 Range/Units 19:42 07:02 07:27 RBC (4.30-5.90) m/uL Hgb (13.0-17.5) gm/dL MCV (80.0-100.0) fL MCHC (31.0-37.0) g/dL RDW (11.5-15.5) % Plt Count (150-450) k/uL Sodium 149 H (137-145) mmol/L Carbon Dioxide 37 H (22-30) mmol/L BUN 44 H (9-20) mg/dL Creatinine 1.41 H (0.66-1.25) mg/dL Glucose 129 H (74-99) mg/dL POC Glucose (mg/dL) 122 H 126 H (70-110) mg/dL Magnesium (1.6-2.3) mg/dL Assessment and Plan Assessment: * Altered mental status, possible toxic metabolic encephalopathy. Reasons multifactorial as mentioned below. * History of CVA, with some residual expressive aphasia * Dysphagia, history of PEG placement, needs revision. * Atrial fibrillation on long-term anticoagulation with Eliquis * Chronic renal insufficiency, mild to moderate * Acute on chronic hypoxic/hypercapnic respiratory failure * COPD * Congestive heart failure due to ischemic cardiomyopathy with EF <20%. * Hypercapnia * Tobacco use * Previous history of alcoholism. * History of AICD placement. * Hypertension * Coronary artery disease Plan: * CT had revealed old left parietal lobe infarct with old sean-infarct ischemic changes. No acute process. I personally reviewed CT head, agree with the findings. * CTA from 10/11/2021 revealed bilateral carotid bifurcation predominant calcified plaque with at least 50% stenosis. No evidence of dissection of the cervical internal carotid arteries or vertebral arteries. No aneurysm. * Treatment of medical conditions as per IM and other specialties. * Patient is status post revision of PEG tube. * Patient was taking high dose gabapentin 800 mg 3 times a day prior to arrival. While in the hospital, he was receiving Neurontin 400 mg 3 times a day, which was discontinued on 04/09/2022. The patient could potentially be withdrawing from Neurontin. We will resume Neurontin at a lower dose 300 mg 3 times a day. IM decreased dose to 300 mg twice a day. * Telemetry monitoring showing V-paced rhythm with underlying sinus rhythm. Bundle-branch block. Couplets and PVCs. * Continue Eliquis and aspirin. * B12 500, folate 6.8 on 10/14/2021. We will start folic acid 1 mg daily. * EEG was performed, which was mildly abnormal due to background slowing suggestive of encephalopathy. No epileptiform activity was seen. * Neurologically, no other workup indicated. Neurologically cleared for transfe r to intermediate facility on Saturday. Please call neurology if any other concerns.
--- NOTE | 2022-04-15 12:52 | PN ---
PROGRESS NOTE SUBJECTIVE: Mr. Apodaca is a 71-year-old gentleman with history of acute on chronic systolic heart failure, elevated troponin secondary to renal insufficiency, ischemic cardiomyopathy, CVA, and has a PEG tube in. This morning the patient is more alert and awake, but is a little more excitable. OBJECTIVE: VITAL SIGNS: On exam, heart rate is 80 beats per minute, blood pressure is 113/66, and respiratory rate is 18. CHEST: Reveals good air entry bilaterally. HEART: Reveals first and second heart sounds, irregular rhythm and a systolic murmur at the left lower sternal border. ABDOMEN: Soft. EXTREMITIES: Did not reveal any edema. LABS: Show that his sodium is 149, BUN is 44, creatinine is 1.4. ASSESSMENT: 1. Acute exacerbation of chronic systolic heart failure. 2. Intravascular volume depletion. 3. History of atrial fibrillation. 4. Cerebrovascular accident. PLAN: He will continue the Eliquis. I will decrease the dose of Lasix. Continue the Lopressor. Hopefully can be transferred to long term tomorrow. MMPASTORL / DEANDREN: [id number] /
[2022-04-15 13:06] LABS: Glucose,Whole Blood 110 mg/dL (70-110)
[2022-04-15 18:04] LABS: Calcium 9.3 mg/dL (8.4-10.2)
[2022-04-15] MEDS: IPRATROPIUM-ALBUTEROL 3 ML NEB INHALATION PRN (19:23)
[2022-04-15 19:49] LABS: Glucose,Whole Blood 136 mg/dL (70-110)
[2022-04-15] MEDS: ATORVASTATIN 80 MG TAB PO SCH (22:15)
[2022-04-15] MEDS: MELATONIN 3 MG TABLET PO SCH (22:15)
[2022-04-16 01:06] LABS: Glucose,Whole Blood 128 mg/dL (70-110)
[2022-04-16] MEDS: INSULIN ASPART (NovoLOG) 100 UNIT/ML VIAL SQ SCH ×4 (01:13→18:37)
[2022-04-16] MEDS: PANTOPRAZOLE 40 MG TABLET PO SCH (06:48)
[2022-04-16 06:55] LABS: Calcium 9.1 mg/dL (8.4-10.2)
[2022-04-16 07:18] LABS: Glucose,Whole Blood 125 mg/dL (70-110)
[2022-04-16] MEDS: TAMSULOSIN 0.4 MG CAP.ER.24H PO SCH (10:00)
[2022-04-16] MEDS: GABAPENTIN 300 MG CAP PO SCH ×2 (10:00→20:36)
[2022-04-16] MEDS: METOPROLOL TARTRATE 50 MG TAB PO SCH ×2 (10:00→20:36)
[2022-04-16] MEDS: FUROSEMIDE 40 MG TAB PO SCH (10:00)
[2022-04-16] MEDS: ASPIRIN 81 MG PO SCH (10:00)
[2022-04-16] MEDS: polyethylene glycoL 3350 17 GM POWD.PACK PO SCH (10:00)
[2022-04-16] MEDS: acetaZOLAMIDE 250 MG TAB PO SCH ×2 (10:00→20:36)
[2022-04-16] MEDS: APIXABAN 5 MG TAB PO SCH ×2 (10:00→20:36)
[2022-04-16] MEDS: allopurinoL 100 MG TAB PO SCH ×2 (10:00→20:36)
[2022-04-16 12:04] LABS: Glucose,Whole Blood 138 mg/dL (70-110)
--- NOTE | 2022-04-16 13:55 | P.PN ---
Subjective Progress Note Date: 04/16/22 Patient seen and examined at bedside. Patient resting comfortably with no complaints of chest pain shortness of breath nausea vomiting fevers or chills. Patient does state he feels achy all over. No acute changes overnight. Objective - Vital Signs Vital signs: Vital Signs Temp 97.7 F 04/16/22 12:00 Pulse 86 04/16/22 12:00 Resp 16 04/16/22 12:00 BP 118/67 04/16/22 12:00 Pulse Ox 97 04/16/22 12:00 FiO2 35 04/16/22 00:08 Intake & Output 04/15/22 04/16/22 04/16/22 18:59 06:59 18:59 Intake Total 240 180 60 Output Total 651 44 Balance 240 -471 16 Intake: Tube Feeding 240 180 60 Output: Post Void Residual 650 43 Stool 1 1 Other: Voiding Method Toilet Toilet Toilet Urinal Urinal Urinal # Voids 4 1 # Bowel Movements 3 - Exam General: [non toxic], [no distress], [appears at stated age] Derm: [warm], [dry] Head: [atraumatic], [normocephalic], [symmetric] Eyes: [EOMI], [no lid lag], [anicteric sclera] Mouth: [no lip lesion], [mucus membranes moist] Cardiovascular: [S1S2 reg], [no murmur], [positive posterior tibial pulse bilateral], Lungs: [CTA bilateral], [no rhonchi, no rales] , [no accessory muscle use] Abdominal: [soft], [ nontender to palpation], [PEG tube], [no appreciable organ omegaly] Ext: [no gross muscle atrophy], [no edema], [no contractures] Neuro: [ CN II-XI grossly intact], [no focal neuro deficits] Psych: [Alert], [oriented], [appropriate affect] - Labs CBC & Chem 7: 04/14/22 10:31 04/16/22 05:50 Labs: Abnormal Lab Results - Last 24 Hours (Table) 04/15/22 04/15/22 04/16/22 Range/Units 17:23 19:48 01:04 Sodium 150 H (137-145) mmol/L Chloride (98-107) mmol/L Carbon Dioxide 39 H (22-30) mmol/L BUN 45 H (9-20) mg/dL Creatinine 1.46 H (0.66-1.25) mg/dL Glucose 117 H (74-99) mg/dL POC Glucose (mg/dL) 136 H 128 H (70-110) mg/dL 04/16/22 04/16/22 04/16/22 Range/Units 05:50 07:12 12:01 Sodium 149 H (137-145) mmol/L Chloride 109 H (98-107) mmol/L Carbon Dioxide 38 H (22-30) mmol/L BUN 46 H (9-20) mg/dL Creatinine 1.45 H (0.66-1.25) mg/dL Glucose 116 H (74-99) mg/dL POC Glucose (mg/dL) 125 H 138 H (70-110) mg/dL Assessment and Plan Assessment: Acute on chronic hypoxic respiratory failure Hypercapnia, resolved Acute exacerbation of systolic congestive heart failure, EF 20% Ischemic cardiomyopathy status post AICD Persistent A. fib on eliquis -Cardiology recommendations:entresto can be started as outpatient. -On oral Lasix, metoprolol Hypernatremia - decreased Diamox to 250 mg BID - Free water deficit is 1.1L, will replace just less than 1/2 in 24 hours by increasing free water flushes to 75 cc q 4h. - repeat at 1700 and in AM urinary retention - flomax - [place] discontinued on 04/14/22 Acute metabolic encephalopathy versus dementia - Initially the though was worsening likely due to seroquel given 04/11/22, but confusion continues - continue to hold zoloft, gabapentin has been dose reduced - CT head- consistent with prior infarct - neruo recs appreciated: EEG without epileptiform activity - ammonia is normal Peg tube malfunction Severe dysphagia - s/p replacement on 04/12/22 - continue tube feedings KERRIE (resolved) on CKD IV - Baseline Cr 1.6 - will need to be careful with ACEI/ARB/Entreseto with CKD Acute exacerbation of COPD Elevated troponin reflective of chronic kidney disease and not acute coronary syndrome Chronic conditions: A. fib, hypertension, hyperlipidemia, CKD - SNF on discharge, hopefully tomorrow. Rehab authorization on hiatus due to [employer]
--- NOTE | 2022-04-16 14:55 | P.PN ---
Subjective Progress Note Date: 04/16/22 HISTORY OF PRESENTING ILLNESS This is a 71-year-old male past medical history significant for coronary artery disease, ischemic cardiomyopathy status post AICD, hypertension, chronic systolic heart failure, persistent atrial fibrillation on long-term anticoagulation with eliquis, COPD, chronic hypoxic respiratory failure on home O2, and former nicotine dependence. He follows in the office with Dr. Curiel. We have been asked to see in consultation for NSTEMI and CHF exacerbation. 04/16 Patient was started on Entresto low-dose yesterday but no that renal function is worsening most likely secondary to IV Lasix. We will hold the evening dose of Entresto and try tomorrow to attempt Entresto. Patient feels that his breathing is better today. Blood pressure 121/74, heart rate in the 60s and 70s. P otassium 4.3, BUN 55 creatinine 1.9. Hemoglobin 11.6, platelet count 100. PHYSICAL EXAMINATION CONSTITUTIONAL: No apparent distress. HEENT: Head is normocephalic. Pupils are equal, round. Sclerae anicteric. Mucous membranes of the mouth are moist. No JVD. No carotid bruit. CHEST EXAMINATION: Diminished bilaterally, expiratory wheezes throughout and bibasilar crackles. No chest wall tenderness is noted on palpation or with deep breathing. HEART EXAMINATION: Regular rate and rhythm. S1, S2 heard. No murmurs, gallops or rub. ABDOMEN: Soft, nontender. EXTREMITIES: 2+ peripheral pulses, no lower extremity edema and no calf tenderness. NEUROLOGIC EXAMINATION: Patient is awake, alert and oriented x3. ASSESSMENT Acute on chronic systolic heart failure Elevated troponin secondary to heart failure and kidney disease Chronic persistent atrial fibrillation Ischemic cardiomyopathy status post AICD Hypertension PLAN Continue Lasix 40 mg daily Continue eliquis and Lopressor 50 mg twice daily Recommend Entresto to be started in the outpatient setting Further recommendations to follow based upon clinical course. Nurse Practitioner note has been reviewed, I agree with a documented findings and plan of care. Patient was seen and examined. Objective - Vital Signs Vital signs: Vital Signs Temp 98.0 F 04/16/22 00:00 Pulse 80 04/16/22 04:00 Resp 18 04/16/22 04:00 BP 117/66 04/16/22 04:00 Pulse Ox 95 04/16/22 04:00 FiO2 35 04/16/22 00:08 Intake & Output 04/15/22 04/16/22 04/16/22 18:59 06:59 18:59 Intake Total 240 180 Output Total 651 Balance 240 -471 Intake: Tube Feeding 240 180 Output: Post Void Residual 650 Stool 1 Other: Voiding Method Toilet Toilet Urinal Urinal # Voids 4 1 # Bowel Movements 3 - Labs CBC & Chem 7: 04/14/22 10:31 04/16/22 05:50 Labs: Abnormal Lab Results - Last 24 Hours (Table) 04/15/22 04/15/22 04/16/22 Range/Units 17: 19:48 01:04 Sodium 150 H (137-145) mmol/L Chloride (98-107) mmol/L Carbon Dioxide 39 H (22-30) mmol/L BUN 45 H (9-20) mg/dL Creatinine 1.46 H (0.66-1.25) mg/dL Glucose 117 H (74-99) mg/dL POC Glucose (mg/dL) 136 H 128 H (70-110) mg/dL 04/16/22 04/16/22 Range/Units 05:50 07:12 Sodium 149 H (137-145) mmol/L Chloride 109 H (98-107) mmol/L Carbon Dioxide 38 H (22-30) mmol/L BUN 46 H (9-20) mg/dL Creatinine 1.45 H (0.66-1.25) mg/dL Glucose 116 H (74-99) mg/dL POC Glucose (mg/dL) 125 H (70-110) mg/dL
[2022-04-16 17:59] LABS: Glucose,Whole Blood 105 mg/dL (70-110)
[2022-04-16] MEDS: ATORVASTATIN 80 MG TAB PO SCH (20:36)
[2022-04-17] MEDS: INSULIN ASPART (NovoLOG) 100 UNIT/ML VIAL SQ SCH ×3 (00:04→13:42)
[2022-04-17 00:05] LABS: Glucose,Whole Blood 134 mg/dL (70-110)
[2022-04-17 06:23] LABS: Glucose,Whole Blood 116 mg/dL (70-110)
[2022-04-17] MEDS: PANTOPRAZOLE 40 MG TABLET PO SCH (06:49)
[2022-04-17 08:28] LABS: Anisocytosis Slight; Basophils % (A) 1 %; Eosinophils # (A) 0.1 k/uL (0-0.7); Eosinophils % (A) 2 %; HCT 37.9 % (39.0-53.0); HGB 11.2 gm/dL (13.0-17.5); Hypochromasia Marked; Lymphocytes # (A) 0.9 k/uL (1.0-4.8); Lymphocytes % (A) 17 %; MCH 29.4 pg (25.0-35.0); MCHC 29.5 g/dL (31.0-37.0); MCV 99.6 fL (80.0-100.0); Macrocytosis Slight; Mean Platelet Volume 8.8; Monocytes # (A) 0.4 k/uL (0-1.0); Monocytes % (A) 8 %; Neutrophils # (A) 3.7 k/uL (1.3-7.7); Neutrophils % (A) 70 %; Platelet Count 104 k/uL (150-450); RDW 16.9 % (11.5-15.5); WBC 5.3 k/uL (3.8-10.6)
[2022-04-17 08:52] LABS: Albumin 3.7 g/dL (3.5-5.0); Calcium 9.3 mg/dL (8.4-10.2); Potassium 4.2 mmol/L (3.5-5.1); Total Bilirubin 0.8 mg/dL (0.2-1.3)
[2022-04-17] MEDS: GABAPENTIN 300 MG CAP PO SCH (10:26)
[2022-04-17] MEDS: APIXABAN 5 MG TAB PO SCH (10:26)
[2022-04-17] MEDS: FUROSEMIDE 40 MG TAB PO SCH (10:26)
[2022-04-17] MEDS: TAMSULOSIN 0.4 MG CAP.ER.24H PO SCH (10:26)
[2022-04-17] MEDS: allopurinoL 100 MG TAB PO SCH (10:26)
[2022-04-17] MEDS: ASPIRIN 81 MG PO SCH (10:26)
[2022-04-17] MEDS: METOPROLOL TARTRATE 50 MG TAB PO SCH (10:26)
[2022-04-17] MEDS: acetaZOLAMIDE 250 MG TAB PO SCH (10:26)
[2022-04-17] MEDS: polyethylene glycoL 3350 17 GM POWD.PACK PO SCH (10:26)
[2022-04-17 12:05] LABS: Glucose,Whole Blood 104 mg/dL (70-110)
[2022-04-17 13:42] VITALS: BP 107/70; PULSE 74; RESP 18; TEMP 97.4
--- NOTE | 2022-04-17 13:51 | P.DS ---
Providers Date of admission: 04/04/22 18:22 Expected date of discharge: 04/17/22 Attending physician: Jacqueline Batres MD Consults: 04/04/22 18:44 Consult Physician Routine Consulting Provider: Lee Curiel Consult Reason/Comments: NSTEMI, CHF exacerbation Do you want consulting provider notified?: Yes, Notify in am 04/07/22 10:11 Consult Physician Routine Consulting Provider: Сергей Richardson Consult Reason/Comments: COPD Do you want consulting provider notified?: Yes 04/11/22 15:37 Consult Physician Routine Consulting Provider: Tristan Alvarez Consult Reason/Comments: peg tube dysfunction Do you want consulting provider notified?: Yes 04/12/22 09:25 Consult Physician Routine Consulting Provider: Tory Palma Consult Reason/Comments: altered mentation Do you want consulting provider notified?: Yes Primary care physician: [facility] Course: The patient is a 71-year-old male with a PMH of A. 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 The patient was confused at the time of interview, and thereby history supplemented from the ED provider in the chart. Attempted to contact the person listed as power of trademark attorney in the chart with no response. The patient reports that he has been experiencing lower extremity swelling and pain of the past 3-4 days. Patient states that his Lasix had recently been increased to 80 mg daily without significant improvement. Also expressed left-sided chest discomfort, 5 out of 10 on maximal intensity, intermittent, with associated shortness of breath. Denied experiencing cough, fever, chills. Upon arrival at the emergency room, the patient's SpO2 was 94% on room air with BP 99/69. EKG in the emergency room revealed a V paced rhythm at 69 bpm. chest x-ray was consistent with CHF exacerbation. Laboratory evaluation was remarkable for troponin of 0.046, with creatinine 1.51 (similar to baseline) and platelet count 104. Patient is admitted for CHF exacerbation. He was started on Lasix 40 mg IV daily. Strict intake and output was ordered along with daily weights. Cardiology was consulted and discontinued Lasix. Cardiology started Entresto which was discontinued due to worsening renal function. Patient was noted to have worsening mentation with increasing bicarb on 04/06. ABG was ordered which shows pH 7.32, pCO2 80 and HCO3 39. Pulmonology was consulted due to persistent need for BiPAP. They recommended continued diuresis and Diamox. Patient continued to struggle with some confusion. It came to light that patient was not using his peg tube at home and was eating. Tube feeds were restarted. He underwent modified barrium swallow on 04/11/22 which again shows he is not safe to eat. He underwent EGD with PEG tube replacement. He had continued confusion and Head CT demonstrated old CVA. Neurology was consulted. EEG without seizure like activity. Patient was evaluated by PT and OT and accepted at SNF. Patient was seen and examined. No acute events overnight. Patient is pleasantly confused today. He has no complaints today. Pertinent studies include CXR, Barium swallow, Brain CT, EEG Pertinent procedures include EGD and PEG replacement. General: non toxic, no distress, appears at stated age, normal weight Derm: no unusual rashes/lesions, warm Head: atraumatic, normocephalic, symmetric Eyes: EOMI, no lid lag, anicteric sclera ENT: Nose and ears atraumatic Neck: No cervical lymphadenopathy, trachea midline, supple Mouth: no lip lesion, mucus membranes moist Cardiovascular: S1S2 reg, no murmur, positive dorsalis pedis pulse bilateral, 1+ bilateral lower pitting edema Lungs: Scattered rales without rhonchi or wheezing, no accessory muscle use Abdominal: soft, nontender to palpation, no guarding, PEG tube in place Ext: muscle strength 5 out of 5 in all 4 extremities grossly, no gross muscle atrophy, no contractures, bilateral lower extremity venous stasis changes noted Neuro: no gross focal neuro deficits Psych: Alert, oriented to person place only Discharge Diagnosis: Acute on chronic hypoxic respiratory failure Hypercapnia, resolved Acute exacerbation of systolic congestive heart failure, EF 20% Ischemic cardiomyopathy status post AICD Persistent A. fib on eliquis Hypernatremia Urinary retention Acute metabolic encephalopathy versus dementia Peg tube malfunction Severe dysphagia KERRIE (resolved) on CKD IV Acute exacerbation of COPD Elevated troponin reflective of chronic kidney disease and not acute coronary syndrome Chronic conditions: A. fib, hypertension, hyperlipidemia, CKD This complex discharge took 45 minutes to complete. Patient Condition at Discharge: Stable Plan - Discharge Summary Discharge Rx Participant: No New Discharge Prescriptions: New Tamsulosin [Flomax] 0.4 mg PO PC-BRKFST #0 cap Furosemide [Lasix] 40 mg PO DAILY tab Melatonin 3 mg PO HS tab Gabapentin [Neurontin] 300 mg PO BID #6 cap acetaZOLAMIDE [Diamox] 250 mg PO BID tab Atorvastatin [Lipitor] 80 mg PO HS tab Metoprolol Tartrate [Lopressor] 50 mg PO BID tab Acetaminophen Tab [Tylenol] 650 mg PO Q6HR PRN tab PRN Reason: Mild Pain Or Fever > 100.5 Continue Omeprazole [PriLOSEC] 20 mg PO BID allopurinoL [Zyloprim] 100 mg PO BID Aspirin [Adult Low Dose Aspirin EC] 81 mg PO DAILY Albuterol Sulfate [Albuterol Sulfate Hfa] 2 puff INHALATION RT-QID PRN PRN Reason: Shortness Of Breath Apixaban [Eliquis] 5 mg PO BID Jevity 1.5 Jakob Liquid 3 can PO DAILY Ipratropium-Albuterol Nebulize [Duoneb 0.5 mg-3 mg/3 ml Soln] 3 ml INHALATION RT-QID PRN PRN Reason: Shortness Of Breath Mag-Ox 420mg 420 mg PO BID Discontinued Sertraline HCl [Zoloft] 100 mg PO BID Acetaminophen-Codeine 300-30mg [Tylenol w/codeine #3] 1 tab PO TID PRN PRN Reason: Pain Rosuvastatin Calcium [Crestor] 20 mg PO HS Metoprolol Succinate (ER) [Toprol XL] 100 mg PO DAILY Gabapentin [Neurontin] 800 mg PO TID Furosemide [Lasix] 80 mg PO DAILY Discharge Medication List Aspirin [Adult Low Dose Aspirin EC] 81 mg PO DAILY 09/02/17 [History] Omeprazole [PriLOSEC] 20 mg PO BID 09/02/17 [History] allopurinoL [Zyloprim] 100 mg PO BID 09/02/17 [History] Albuterol Sulfate [Albuterol Sulfate Hfa] 2 puff INHALATION RT-QID PRN 12/27/20 [History] Apixaban [Eliquis] 5 mg PO BID 12/27/20 [History] Jevity 1.5 Jakob Liquid 3 can PO DAILY 12/27/20 [History] Ipratropium-Albuterol Nebulize [Duoneb 0.5 mg-3 mg/3 ml Soln] 3 ml INHALATION RT-QID PRN 02/08/21 [History] Mag-Ox 420mg 420 mg PO BID 02/08/21 [History] Acetaminophen Tab [Tylenol] 650 mg PO Q6HR PRN tab 04/17/22 [Rx] Atorvastatin [Lipitor] 80 mg PO HS tab 04/17/22 [Rx] Furosemide [Lasix] 40 mg PO DAILY tab 04/17/22 [Rx] Gabapentin [Neurontin] 300 mg PO BID #6 cap 04/17/22 [Rx] Melatonin 3 mg PO HS tab 04/17/22 [Rx] Metoprolol Tartrate [Lopressor] 50 mg PO BID tab 04/17/22 [Rx] Tamsulosin [Flomax] 0.4 mg PO PC-BRKFST #0 cap 04/17/22 [Rx] acetaZOLAMIDE [Diamox] 250 mg PO BID tab 04/17/22 [Rx] Follow up Appointment(s)/Referral(s): Gary Prather MD [STAFF PHYSICIAN] - 1 Week [facility],[place] [NON-STAFF] - [facility],Home Care [NON-STAFF] - Joel Cox DO [Doctor of Osteopathic Medicine] - 1 Week [facility],Clinic [Primary Care Provider] - 1-2 days Activity/Diet/Wound Care/Special Instructions: NURSE Please fax med list to [facility] at [phone]. [facility] set up by PA. Jevity 1.5 at 60 mL/hr. Free water flush 30 mL every 4 hours. As tolerated bolus may be considered of 6 bolus feeding of 240 mL and 60 mL free water flush before and after each bolus. FU PCP within 1-2 days of discharge. FU Cardiology within 1 week of discharge. FU Pulmonology within 1 week of discharge. Discharge/Stand Alone Forms: Who Do I Call?, Community Resources, Personal [employer] Discharge Disposition: TRANSFER TO SNF/ECF
--- NOTE | 2022-04-17 13:52 | P.PN ---
Subjective Progress Note Date: 04/17/22 HISTORY OF PRESENTING ILLNESS This is a 71-year-old male past medical history significant for coronary artery disease, ischemic cardiomyopathy status post AICD, hypertension, chronic systolic heart failure, persistent atrial fibrillation on long-term anticoagulation with eliquis, COPD, chronic hypoxic respiratory failure on home O2, and former nicotine dependence. He follows in the office with Dr. Curiel. We have been asked to see in consultation for NSTEMI and CHF exacerbation. 04/17 Patient remains confused and is waiting for discharge planning for ECF. BUN 51 creatinine 1.46, potassium 4.2. Hemoglobin 11.2. hall monitor is paced rhythm. Blood pressure 107/70, heart rate in the 70s. PHYSICAL EXAMINATION CONSTITUTIONAL: No apparent distress. HEENT: Head is normocephalic. Pupils are equal, round. Sclerae anicteric. CHEST EXAMINATION: Diminished bilaterally, expiratory wheezes throughout and bibasilar crackles. No chest wall tenderness is noted on palpation or with deep breathing. HEART EXAMINATION: Regular rate and rhythm. S1, S2 heard. No murmurs, gallops or rub. ABDOMEN: Soft, nontender. EXTREMITIES: 2+ peripheral pulses, no lower extremity edema and no calf tenderness. NEUROLOGIC EXAMINATION: Patient is awake, alert. ASSESSMENT Acute on chronic systolic heart failure Elevated troponin secondary to heart failure and kidney disease Chronic persistent atrial fibrillation Ischemic cardiomyopathy status post AICD Hypertension PLAN Continue Lasix 40 mg daily Continue eliquis and Lopressor 50 mg twice daily Recommend Entresto to be started in the outpatient setting [employer] Treater signing off and will follow on an as-needed basis. Please reconsult if any new concerns. Nurse Practitioner note has been reviewed, I agree with a documented findings and plan of care. Patient was seen and examined. Objective - Vital Signs Vital signs: Vital Signs Temp 98.3 F 04/17/22 04:00 Pulse 92 04/17/22 04:00 Resp 18 04/17/22 04:00 BP 127/85 04/17/22 04:00 Pulse Ox 96 04/17/22 04:00 FiO2 35 04/16/22 00:08 Intake & Output 04/16/22 04/17/22 04/17/22 18:59 06:59 18:59 Intake Total 180 180 Output Total 44 Balance 136 180 Weight 76.5 kg Intake: Tube Feeding 180 180 Output: Post Void Residual 43 Stool 1 Other: Voiding Method Toilet Toilet Urinal Urinal # Voids 1 # Bowel Movements 1 - Labs CBC & Chem 7: 04/17/22 08:05 04/17/22 08:05 Labs: Abnormal Lab Results - Last 24 Hours (Table) 04/16/22 04/17/22 04/17/22 Range/Units 12:01 00:03 06:18 RBC (4.30-5.90) m/uL Hgb (13.0-17.5) gm/dL Hct (39.0-53.0) % MCHC (31.0-37.0) g/dL RDW (11.5-15.5) % Plt Count (150-450) k/uL Lymphocytes # (1.0-4.8) k/uL Sodium (137-145) mmol/L Carbon Dioxide (22-30) mmol/L BUN (9-20) mg/dL Creatinine (0.66-1.25) mg/dL Glucose (74-99) mg/dL POC Glucose (mg/dL) 138 H 134 H 116 H (70-110) mg/dL 04/17/22 04/17/22 Range/Units 08:05 08:05 RBC 3.80 L (4.30-5.90) m/uL Hgb 11.2 L (13.0-17.5) gm/dL Hct 37.9 L (39.0-53.0) % MCHC 29.5 L (31.0-37.0) g/dL RDW 16.9 H (11.5-15.5) % Plt Count 104 L (150-450) k/uL Lymphocytes # 0.9 L (1.0-4.8) k/uL Sodium 149 H (137-145) mmol/L Carbon Dioxide 37 H (22-30) mmol/L BUN 51 H (9-20) mg/dL Creatinine 1.46 H (0.66-1.25) mg/dL Glucose 106 H (74-99) mg/dL POC Glucose (mg/dL) (70-110) mg/dL
--- NOTE | 2022-04-19 22:12 | CDI ---
Documentation Clarification Form Date: 04/19/2022 10:04:19 PM From: Laura Mandujano Phone: Admit Date: 04/04/2022 6:22:00 PM Patient Name: Peter Apodaca Visit Number: [id number] Discharge Date: 04/17/2022 3:08:00 PM ATTENTION: The Clinical Documentation Specialists (CDI) and [facility] Coding Staff appreciate your assistance in clarifying documentation. Please respond to the clarification below the line at the bottom and electronically sign. The CDI & [facility] Coding staff will review the response and follow-up if needed. Please note: Queries are made part of the Legal Health Record. If you have any questions, please contact the author of this message via ITS. Dr. Gary Prather NSTEMI is documented per Cardio Consult Note 1/5. Additional clarification regarding the type of NE is requested. History/Risk Factors: 71yo M, ACH/HRF, ACSHF, ICM, w AICD, PersistentA fib, KERRIE on CKD IV, AECOPD, HTN, HLD, Hypernatremia, Urinary retention, Acutemetabolic enceph, dysphagia s/p CVA w Peg tube malfunction Clinical Indicators: Troponin: 0.046 H* (0.000-0.034) ng/mL EKG Results: 0.046 H* (0.000-0.034) ng/mL Treatment: old IV Lasix; Start patient on Entresto 2426 milligrams twice daily; MonitorBMPand magnesium Please clarify the type of NSTEMI, if known: [ ] NSTEMI (type 1) [ ] Type II NE due to (please specify etiology) [ ] Unable to determine [ ] Other Condition, please specify (Template Last Revised: May 2020) Unable to determine MTDD
--- NOTE | 2022-04-20 11:16 | CDI ---
Documentation Clarification Form Date: 04/20/2022 11:14:05 AM From: Laura Mandujano Phone: Admit Date: 04/04/2022 6:22:00 PM Patient Name: Peter Apodaca Visit Number: [id number] Discharge Date: 04/17/2022 3:08:00 PM ATTENTION: The Clinical Documentation Specialists (CDI) and [facility] Coding Staff appreciate your assistance in clarifying documentation. Please respond to the clarification below the line at the bottom and electronically sign. The CDI & [facility] Coding staff will review the response and follow-up if needed. Please note: Queries are made part of the Legal Health Record. If you have any questions, please contact the author of this message via ITS. Dr. Jacqueline Batres NSTEMIis documented per Cardio Consult Note 1/5.Additional clarification regarding the type ofMIis requested. History/Risk Factors: 71yo M, ACH/HRF, ACSHF, ICM, wAICD,PersistentA fib, AKIonCKD IV,AECOPD,HTN,HLD,Hypernatremia,Urinary retention, Acutemetabolic enceph,dysphagias/p CVAwPeg tube malfunction Clinical Indicators: Troponin: 0.046 H* (0.000-0.034) ng/mL EKG Results: 0.046 H* (0.000-0.034) ng/mL Treatment: Hold IV Lasix; Start patient on Entresto 2426 milligrams twice daily; MonitorBMPand magnesium Please clarify the type ofNSTEMI, if known: [ ]NSTEMI(type 1) [ ]Type II MIdue to (please specify etiology) [ ] Unable to determine [ ] Other Condition, please specify (Template LastRevised: May 2020) MTDD
--- NOTE | 2022-04-23 10:30 | CDI ---
Documentation Clarification Form Date: 04/23/2022 10:27:10 AM From: Laura Mandujano Phone: Admit Date: 04/04/2022 6:22:00 PM Patient Name: Peter Apodaca Visit Number: [id number] Discharge Date: 04/17/2022 3:08:00 PM ATTENTION: The Clinical Documentation Specialists (CDI) and [facility] Coding Staff appreciate your assistance in clarifying documentation. Please respond to the clarification below the line at the bottom and electronically sign. The CDI & [facility] Coding staff will review the response and follow-up if needed. Please note: Queries are made part of the Legal Health Record. If you have any questions, please contact the author of this message via ITS. Dr. Jacqueline Batres Thank you for signing the previous quyer; however, it lacked a clarification response; thus, I am resubmitting. NSTEMI is documented per Cardio Consult Note 1/5.Additional clarification regarding the type of SC is requested. History/Risk Factors: 71yo M, ACH/HRF, ACSHF, ICM, w AICD, Persistent A fib, KERRIE on CKD IV, AECOPD, HTN, HLD, Hypernatremia, Urinary retention, Acute metabolic enceph, dysphagia s/p CVA w Peg tube malfunction Clinical Indicators: Troponin: 0.046 H* (0.000-0.034) ng/mL EKG Results: 0.046 H* (0.000-0.034) ng/mL Treatment: Hold IV Lasix; Start patient on Entresto 2426 milligrams twice daily; Monitor BMP and magnesium Please clarify the type of NSTEMI, if known: [ ] NSTEMI (type 1) [ ] Type II SC due to (please specify etiology) [ ] Unable to determine [x ] Other Condition, please specify This is a troponin elevation from CHF. Not NSTEMI (Template Last Revised: May 2020) MTDD
== END 2022-04-17 15:08 | DRG 291 ==
LOC: EC 14:02 → 3SCARD 18:22
PROVIDERS: ADMIT Family Medicine; ATTEND Family Medicine
PROC: 5A09357 Assistance with Respiratory Ventilation, Less than 24 Consecutive Hours, Continuous Positive Airway Pressure (ICD-10-PCS; 2022-04-07)
PROC: 0DH63UZ Insertion of Feeding Device into Stomach, Percutaneous Approach (ICD-10-PCS; 2022-04-12)
PROC: 3E0G76Z Introduction of Nutritional Substance into Upper GI, Via Natural or Artificial Opening (ICD-10-PCS; 2022-04-12)
PROC: 0DP68UZ Removal of Feeding Device from Stomach, Via Natural or Artificial Opening Endoscopic (ICD-10-PCS; principal; 2022-04-12 10:35)
DX: I13.0 Hypertensive heart and chronic kidney disease with heart failure and stage 1 through stage 4 chronic kidney disease, or unspecified chronic kidney disease (principal); G92.8 Other toxic encephalopathy; J96.21 Acute and chronic respiratory failure with hypoxia; J96.22 Acute and chronic respiratory failure with hypercapnia; I50.43 Acute on chronic combined systolic (congestive) and diastolic (congestive) heart failure; K94.23 Gastrostomy malfunction; I69.351 Hemiplegia and hemiparesis following cerebral infarction affecting right dominant side; E44.0 Moderate protein-calorie malnutrition; E87.0 Hyperosmolality and hypernatremia; N17.9 Acute kidney failure, unspecified; E87.3 Alkalosis; F05 Delirium due to known physiological condition; I48.19 Other persistent atrial fibrillation; J44.1 Chronic obstructive pulmonary disease with (acute) exacerbation; N18.4 Chronic kidney disease, stage 4 (severe); F11.23 Opioid dependence with withdrawal; Z99.81 Dependence on supplemental oxygen; I27.20 Pulmonary hypertension, unspecified; R54 Age-related physical debility; E86.9 Volume depletion, unspecified; H16.001 Unspecified corneal ulcer, right eye; S01.21XA Laceration without foreign body of nose, initial encounter; I69.391 Dysphagia following cerebral infarction; I69.320 Aphasia following cerebral infarction; F10.21 Alcohol dependence, in remission; I25.5 Ischemic cardiomyopathy; M79.89 Other specified soft tissue disorders; E78.5 Hyperlipidemia, unspecified; F17.210 Nicotine dependence, cigarettes, uncomplicated; R77.8 Other specified abnormalities of plasma proteins; H91.90 Unspecified hearing loss, unspecified ear; G47.30 Sleep apnea, unspecified; I87.8 Other specified disorders of veins; G62.9 Polyneuropathy, unspecified; I25.10 Atherosclerotic heart disease of native coronary artery without angina pectoris; M10.9 Gout, unspecified; T43.595A Adverse effect of other antipsychotics and neuroleptics, initial encounter; T50.1X5A Adverse effect of loop [high-ceiling] diuretics, initial encounter; R33.9 Retention of urine, unspecified; R25.1 Tremor, unspecified; Z95.810 Presence of automatic (implantable) cardiac defibrillator; Z79.01 Long term (current) use of anticoagulants; Z79.899 Other long term (current) drug therapy; Z79.82 Long term (current) use of aspirin; Z88.8 Allergy status to other drugs, medicaments and biological substances; Z88.1 Allergy status to other antibiotic agents; Z95.5 Presence of coronary angioplasty implant and graft; Z68.21 Body mass index [BMI] 21.0-21.9, adult
CPT/HCPCS: 36415; 36600; 43246; 70450; 71045; 71046; 74230; 80048; 80053; 82140; 82805; 83735; 83880; 84100; 84484; 85025; 85027; 85610; 85730; 93005; 94640; 94660; 94760; 95816; 96365; 96366; 96375; 99285